=== PATIENT | male | born 1945 | race Caucasian/White ===

== ENCOUNTER 2021-04-04 15:08 | Inpatient (IN) | payer MEDICARE, OTHER, SELFPAY ==
--- NOTE | ~2021-04-04 | CT_ITS ---
EXAMINATION: CT HEAD WITHOUT CONTRAST CLINICAL INFORMATION: Mental status change. Visualized examination. COMPARISON: None TECHNIQUE: Contiguous axial imaging was performed from the skull base to vertex without intravenous administration of contrast. This CT examination was performed using dose optimization techniques as appropriate, variously including the following: *Automated exposure control *Adjustment of mA and/or kV according to patient size (this includes techniques or standardized protocols for targeted exams where dose is matched to indication/reason for exam; i.e. extremities or head) *Use of iterative reconstruction technique DLP: 716 mGy-cm FINDINGS: There is no evidence of acute intracranial hemorrhage or territorial infarction. No abnormal mass effect or midline shift is seen. Arvizu to white matter differentiation is well preserved. No extra-axial fluid collections are identified. There is age appropriate prominence of the ventricles and extra-axial CSF spaces. There is no abnormal attenuation within the brain parenchyma. The osseous structures and soft tissues are normal. The mastoid air cells and visualized portions of the paranasal sinuses are well aerated. CT/CT head/brain wo con IMPRESSION: Unremarkable exam.
--- NOTE | 2021-04-04 15:26 | ED_ITS ---
HPI - Psych General Chief Complaint: Psychiatric Symptoms Stated Complaint: psych Time Seen by Provider: 04/04/21 15:25 Source: patient Mode of arrival: ambulatory Limitations: no limitations History of Present Illness HPI Narrative: plan for admission to - sent to ED for medical clearance complaint: feels depressed and anxiety Onset (ago): year(s) Duration: getting worse History of same: Yes Relieving factors: none Exacerbating factors: none Associated psychiatric symptoms: depression Associated symptoms: denies other symptoms Treatments prior to arrival: none Related Data Allergies Allergy/AdvReac Type Severity Reaction Status Date / Time No Known Allergies Allergy Verified 04/04/21 15:34 Review of Systems Review of Systems: Constitutional : No Fever, No Chills ENT/Mouth : No Ear Pain, No Nasal Congestion, No sore throat Eyes: No Eye Pain, No Swelling, No Redness Cardiovascular : No Chest Pain, No SOB Respiratory : No Cough, No Sputum, No Dyspnea Gastrointestinal : No Nausea, No Vomiting, No Diarrhea, No Hematochezia, No Leonila jose ramon Genitourinary : No Dysuria, No Urinary Frequency, No Hematuria Musculoskeletal : No Myalgias Skin : No Skin Lesions, No rash Neuro : No Weakness, No Numbness, No Paresthesias, No Dizziness, No Headache Psych : positive Anxiety, positive Depression, no SI/HI Heme/Lymph: No Lymphadenopathy Endocrine : No Polyuria, No Polydipsia All other systems reviewed and are negative [facility] Past Medical History Attestation statement: The following information was validated with the patient. Medical History Depression HLD (hyperlipidemia) HTN (hypertension) Hypothyroidism Prostate cancer Social History Social History (Updated 04/04/21 @ 15:35 by Nadya Nielsen DO) Patient Tobacco Use Status: Former Tobacco user Use of substances other than those prescribed or required for medical reasons: No Advance Directives: No Advance Directives Information Provided: No Physical Exam Vital Signs: Vital Signs: Last Vital Signs Temp 98.2 F 04/04/21 15:56 Pulse 70 04/04/21 15:56 Resp 16 04/04/21 15:56 BP 131/57 L 04/04/21 15:56 Pulse Ox 97 04/04/21 15:56 Body Mass Index 20.0 Appearance: Alert. Oriented X3. No acute distress. Thin and frail Eyes: Pupils equal, round and reactive to light. ENT: Pharynx normal. Neck: Normal inspection. Neck supple. CVS: Normal heart rate and rhythm. Pulses normal. Respiratory: No respiratory distress. Breath sounds normal. Abdomen: Soft and nontender. Skin: Skin warm and dry. Normal skin color. Normal skin turgor. Extremities: No lower extremity edema. No calf ttp Neuro: Oriented X 3. No motor deficit. No sensory deficit. CN2-12 intact Course Course Course Narrative: signed out pending blood work and labs MDM - Psych MDM Narrative Medical decision making narrative: 75 yo male with HTN, HLD, hypothyroidism, anxiety depression referred to the ED for medical clearance prior to admit to [facility] for severe depression. He offers no medical complaints at this time, labs, COVID swab and admission pending workup. Discharge Plan Discharge Clinical Impression: Depression Qualifiers: Depression Type: major depressive disorder Major depression recurrence: recurrent Active/Remission status: currently active Major depression episode severity: severe Psychotic features: without psychotic features Qualified Code(s): F33.2 - Major depressive disorder, recurrent severe without psychotic features Patient Disposition: Admitted As Inpatient
--- NOTE | 2021-04-04 15:26 | ECG_ITS ---
Test Reason : RULE OUT PROLONGED Q Blood Pressure : / mmHG Vent. Rate : 067 BPM Atrial Rate : 067 BPM P-R Int : 146 ms QRS Dur : 116 ms QT Int : 452 ms P-R-T Axes : 084 088 055 degrees QTc Int : 477 ms Sinus rhythm with marked sinus arrhythmia Incomplete right bundle branch block Borderline ECG No previous ECGs available Referred By: Nadya Nielsen Electronically Signed By:TÑOO PRADHAN
[2021-04-04 15:56] VITALS: BP 131/57; PULSE 70; RESP 16; TEMP 36.8; O2SAT 97
[2021-04-04 17:00] LABS: Basophils Percent Auto 0.2 % (0-2); Eosinophils Percent Auto 0.7 % (0-4); Hemoglobin 12.5 g/dl (14.0-18.0); Imm Gran Abs Auto 0.01 X10*3/uL (0.00-0.03); Imm Gran Pct Auto 0.2 % (0.0-0.4); Lymphocytes Absolute Auto 0.8 X10*3/uL (1.2-4.9); Mean Platelet Volume 9.8 fL (9.4-12.4); PLT CLUMP 1; SCAN SMEAR FLAG 1
[2021-04-04 17:02] LABS: Hematocrit 36.9 % (42-52); Lymphocytes Percent Auto 16.9 % (20-40); Mean Corpuscular HGB Conc 33.9 g/dl (31.0-36.0); Mean Corpuscular Hemoglobin 31.8 pg (27.0-33.0); Mean Corpuscular Volume 93.9 fL (80-98); Monocytes Absolute Auto 0.4 X10*3/uL (0.1-1.2); Monocytes Percent Auto 8.1 % (2-11); Neutrophils Absolute Auto 3.3 X10*3/uL (2.0-8.3); Neutrophils Percent Auto 73.9 % (45-73); Platelet Count 152 X10*3/uL (160-400); Red Blood Count 3.93 X10*6/uL (4.60-5.80); Red Cell Distribution Width 13.2 % (11.0-16.0); White Blood Count 4.4 X10*3/uL (4.8-10.8)
--- NOTE | 2021-04-04 17:05 | PHA.MEDREC ---
Pharmacy Consult ? Medication Reconciliation Pharmacy has completed the medication reconciliation.
[2021-04-04 17:40] LABS: Alanine Aminotransferase 14 U/L (0-40); Albumin Level 4.2 g/dL (3.5-5.0); Alkaline Phosphatase 57 U/L (39-117); Anion Gap 9 (12-20); Aspartate Amino Transferase 16 U/L (5-37); Bilirubin Total 0.6 mg/dL (0.0-1.0); Blood Urea Nitrogen 24 mg/dL (9-16); Calcium 9.4 mg/dL (8.4-10.2); Carbon Dioxide 33 mmol/L (22-29); Chloride 104 mmol/L (96-108); Creatinine Clr Calc Pharmacy 69.5; Estimated Glomerular Filt Rate > 60; Glucose Random 120 mg/dL (60-115); Potassium 3.9 mmol/L (3.3-5.1); Sodium 142 mmol/L (135-145); Total Protein 6.5 g/dL (6.5-8.0)
[2021-04-04 17:44] LABS: COVID-19 Test Negative (Negative)
[2021-04-04 17:47] LABS: Thyroid Stimulating Hormone 1.86 uIU/mL (0.32-4.0)
[2021-04-04 18:25] LABS: Appearance Urine HAZY; Color Urine YELLOW; Glucose Urine UA NEG (NEG); Leukocyte Esterase Urine NEG (NEG); Nitrite Urine NEG (NEG); Specific Gravity - Urine >= 1.030 (1.005-1.025); Urine Blood NEG (NEG); Urine Ketones NEG (NEG); Urine Protein TRACE MG/DL (NEG-TRACE)
[2021-04-04 18:37] LABS: Amphetamine Screen Urine Not Detected (Not Detect); Barbiturates, Urine Not Detected (Not Detect); Benzodiazepines Screen Urine Not Detected (Not Detect); Cannabinoid Screen Urine Not Detected (Not Detect); Cocaine Screen Urine Not Detected (Not Detect); Fentanyl, urine Not Detected (Not Detect); Opiate Screen Urine Not Detected (Not Detect); Phencyclidine Screen Urine Not Detected (Not Detect)
[2021-04-04 18:37] LABS: Mucus Urine 1+ /LPF
[2021-04-04 18:38] LABS: Bacteria Urine TRACE /LPF; Calcium Oxalate Crystals Urine 1+ /LPF
[2021-04-04 18:39] LABS: RBC Urine 0 /HPF (0); WBC Urine 0 /HPF (0-4)
[2021-04-04 21:35] VITALS: BP 147/67; PULSE 68; RESP 17; TEMP 36.6; O2SAT 99
[2021-04-04 22:50] VITALS: BMI 17.8
[2021-04-04] MEDS: busPIRone HCl 10 MG TABLET PO (23:30)
[2021-04-04] MEDS: Sertraline HCL 100 MG TABLET 200 MG PO (23:31)
[2021-04-04] MEDS: Atorvastatin Calcium 10 MG TABLET PO (23:31)
[2021-04-05] MEDS: Levothyroxine Sodium 75 MCG TABLET PO (05:19)
--- NOTE | 2021-04-05 07:57 | PC.ADMIT ---
Admitted from ER POD; assessed at home by Crisis on 03/30 and waited at home with his until a bed search was completed and bed was available. Arrived onto unit ~9:30pm via wheelchair, CV signed and in chart. Patient A&Ox4, calm and cooperative, engaged in admission process, able to answer questions appropriately. Patient reports having visual hallucinations of seeing people, some faces he knows and others are vague images; denies auditory hallucinations; the images most appear in the evening hours and can be startling to him. Denies command hallucinations; denies current SI/HI, reported passive SI prior to the visual hallucinations taking over, and these disturbances occupy a lot of thought process. Patient reports these perceptual disturbances have gotten worse since a recent change in medication from Zyprexa to Abilify. Patient reports he has been avoiding people for some time and the social isolation with the pandemic worked in my favor . Patient reports living with in single family dwelling, has supports of neighbors for yardwork. Has an outside psych providers, currently no homecare services but he is potentially interested in homecare supports. Reports decrease in ability to care for himself; has choosen not to shower because I am not going anywhere . Decrease appetite; underweight, reporting ~50lb weight loss; ht 6', wt 59kg, BMI 16.8. Patient signed releases; oriented to the unit; placed on 15 min checks for safety.
[2021-04-05 08:20] VITALS: BP 148/71; PULSE 86; RESP 16; TEMP 36.4; O2SAT 98
[2021-04-05 08:23] VITALS: BP 148/71; PULSE 86
[2021-04-05] MEDS: NIFEdipine ER 90 MG TAB.ER.24 PO (08:23)
[2021-04-05 08:24] VITALS: BP 148/71; PULSE 86
[2021-04-05] MEDS: calcium polycarbophiL TABLET 2 TAB PO (08:24)
[2021-04-05] MEDS: Ferrous Sulfate 324 MG TABLET.DR PO (08:24)
[2021-04-05] MEDS: busPIRone HCl 10 MG TABLET PO ×2 (08:24→20:17)
[2021-04-05] MEDS: Cyanocobalamin (Vitamin B-12) 1,000 MCG TABLET 1000 MCG PO (08:24)
[2021-04-05] MEDS: Cholecalciferol (Vitamin D3) 25 MCG TABLET 50 MCG PO (08:24)
[2021-04-05] MEDS: lisinopriL 20 MG TABLET PO (08:24)
[2021-04-05] MEDS: ARIPiprazole 2 MG TABLET PO (08:25)
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
--- NOTE | 2021-04-05 14:53 | P.CONIM_ITS ---
History of Present Illness Data of Consult Service Date: 04/05/21 Requesting physician: Jose Knapp Primary Care Provider: Nishant Corral MD HPI Reason for consult: Medical H&P This is a 75 yo M with PMH as documented below who is admitted to [facility]. Medical consult for medical H&P. Patient is seen and examined in his room. He reports no physical complaints. He denies chest pain, sob, abdominal pain, nausea, vomiting. He reports he is admitted to the psych unit because Just dont feel like myself Review of Systems Review of Systems: General - no fevers or chills Cardiovascular - no chest pain Respiratory - no shortness of breath or cough Abdominal- no abdominal pain, nausea, vomiting, diarrhea Yes all other systems are reviewed and are negative (see psych notes for psych ROS) [facility] Medical History Depression HLD (hyperlipidemia) HTN (hypertension) Hypothyroidism Prostate cancer Family History Other Prostate cancer Pertinent family history: . Surgical History H/O prostatectomy History of hernia surgery Social History Household Members: Spouse Housing: House Do you presently have visiting nurse or other home services: No Patient Tobacco Use Status: Former Tobacco user Smoked in Last 30 Days: No e-Cigarette/Vaping Use: Never Used Use of substances other than those prescribed or required for medical reasons: No Currently Displaying Signs/Symptoms of Drug Intoxication Withdrawal: No Have you been hit, kicked, punched, or otherwise hurt by someone within the past year? If so, by whom?: No Do you feel safe in your current relationship?: Yes Is there a partner from a previous relationship who is making you feel unsafe now?: No Are you made to feel afraid or neglected: No Advance Directives: Yes (POA) Advance Directives Information Provided: No Advance Directives on File: No Do you have thoughts of harming others: None Do you have a plan to hurt others: No Plan Recently lost weight without trying: Yes How much weight loss: 34pounds or more Eating poorly because of decreased appetite: Yes Nutrition screen score: 7 Nutrition Risks: Anorexia and Emaciation/Cachexia Poor oral hygiene: Yes Meds Allergies Allergy/AdvReac Type Severity Reaction Status Date / Time No Known Allergies Allergy Verified 04/04/21 15:34 Active Medications: Current Medications Acetaminophen (Acetaminophen 325 Mg Tablet) 650 mg PO Q8H PRN PRN Reason: Pain Al Hydroxide/Mg Hydroxide (Magnesium Hydrox/Alum Hydrox 30 Ml Oral.Susp) 30 ml PO Q6H PRN PRN Reason: Heartburn/Nausea Aripiprazole (Aripiprazole 2 Mg Tablet) 2 mg PO DAILY [facility] Last Admin: 04/05/21 08:25 Dose: 2 mg Documented by: Atorvastatin Calcium (Atorvastatin Calcium 10 Mg Tablet) 10 mg PO BEDTIME [facility] Last Admin: 04/04/21 23:31 Dose: 10 mg Documented by: Buspirone HCl (Buspirone Hcl 10 Mg Tablet) 10 mg PO BID [facility] Last Admin: 04/05/21 08:24 Dose: 10 mg Documented by: Calcium Polycarbophil (Calcium Polycarbophil Tablet) 2 tab PO DAILY [facility] Last Admin: 04/05/21 08:24 Dose: 2 tab Documented by: Cyanocobalamin (Cyanocobalamin (Vitamin B-12) 1,000 Mcg Tablet) 1,000 mcg PO DAILY [facility] Last Admin: 04/05/21 08:24 Dose: 1,000 mcg Documented by: Ferrous Sulfate (Ferrous Sulfate 324 Mg Tablet.Dr) 324 mg PO DAILY [facility] Last Admin: 04/05/21 08:24 Dose: 324 mg Documented by: Levothyroxine Sodium (Levothyroxine Sodium 75 Mcg Tablet) 75 mcg PO DAILY@0600 [facility] Last Admin: 04/05/21 05:19 Dose: 75 mcg Documented by: Lisinopril (Lisinopril 20 Mg Tablet) 20 mg PO DAILY [facility] Last Admin: 04/05/21 08:24 Dose: 20 mg Documented by: Magnesium Hydroxide (Milk Of Magnesia 30 Ml Oral.Susp) 30 ml PO DAILY PRN PRN Reason: Constipation Nifedipine (Nifedipine Er 90 Mg Tab.Er.24) 90 mg PO DAILY [facility] Last Admin: 04/05/21 08:23 Dose: 90 mg Documented by: Pharmacy Consult (Consult Rx Perform Med Rec) 1 each MISCELLANE ONCE PRN PRN Reason: Consult order Sertraline HCl (Sertraline Hcl 100 Mg Tablet) 200 mg PO BEDTIME [facility] Last Admin: 04/04/21 23:31 Dose: 200 mg Documented by: Vitamin D (Cholecalciferol (Vitamin D3) 25 Mcg Tablet) 50 mcg PO DAILY [facility] Last Admin: 04/05/21 08:24 Dose: 50 mcg Documented by: Home Medications Medication Instructions Recorded Confirmed Last Taken Type acetaminophen 650 mg 650 mg PO Q8H PRN 04/04/21 04/04/21 Unknown History tablet,extended release aripiprazole 2 mg tablet 1 tab PO DAILY 04/04/21 04/04/21 Unknown History buspirone 10 mg tablet 10 mg PO BID 04/04/21 04/04/21 Unknown History calcium polycarbophil 625 mg 1,250 mg PO DAILY 04/04/21 04/04/21 Unknown History tablet (FiberCon) cholecalciferol (vitamin D3) 50 50 mcg PO DAILY 04/04/21 04/04/21 Unknown History mcg (2,000 unit) tablet cyanocobalamin (vitamin B-12) 1,000 mcg PO DAILY 04/04/21 04/04/21 Unknown History 1,000 mcg tablet ferrous sulfate 325 mg (65 mg 325 mg PO DAILY 04/04/21 04/04/21 Unknown History iron) tablet (Feosol) fosinopril 20 mg tablet 20 mg PO DAILY 04/04/21 04/04/21 Unknown History levothyroxine 75 mcg tablet 75 mcg PO DAILY 04/04/21 04/04/21 Unknown History nifedipine 90 mg tablet,extended 90 mg PO DAILY 04/04/21 04/04/21 Unknown History release sertraline 100 mg tablet 200 mg PO BEDTIME 04/04/21 04/04/21 Unknown History simvastatin 20 mg tablet 20 mg PO BEDTIME 04/04/21 04/04/21 Unknown History vitamins A,C,P-saot-ewmgnc 14,320 2 cap PO DAILY 04/04/21 04/04/21 Unknown History unit-226 mg-200 unit capsule (PreserVision AREDS) Physical Exam Vital Signs and Narrative: Vital Signs: Last Vital Signs Temp 97.5 F 04/05/21 08:20 Pulse 86 04/05/21 08:24 Resp 16 04/05/21 08:20 BP 148/71 H 04/05/21 08:24 Pulse Ox 98 04/05/21 08:20 Body Mass Index 17.8 Const: Other: Constitutional - Awake and Alert, No apparent distress Eyes - PERRLA, EOMI Cardiovascular - S1S2, RRR, No edema Respiratory - Normal lung expansion, Normal respiratory effort, No respiratory distress, CTA bilaterally Gastrointestinal - NT / ND; +BS; No rebound or guarding - No CVA tenderness Extremities - no calf tenderness bilaterally, no swelling Musculoskeletal - Normal inspection, normal ROM Skin - Warm/Dry Neurological - Alert & oriented x3, No focal deficit; CN 2-12 intact bilaterally Results Labs CBC and Chem 7: 04/04/21 16:48 04/04/21 16:47 Labs: Laboratory Results - last 24 hr 04/04/21 04/04/21 04/04/21 16:36 16:47 16:47 MCV MCH MCHC RDW Plt Count MPV Immature Gran % (Auto) Neut % (Auto) Lymph % (Auto) [place] % (Auto) Eos % (Auto) Baso % (Auto) Lymph # (Auto) [place] # (Auto) Eos # (Auto) Baso # (Auto) Abs Immat Gran (auto) Absolute Neuts (auto) Absolute Nucleated RBC Nucleated RBC % (auto) Anion Gap 9 L Estim Creat Clear Calc 69.5 Estimated GFR > 60 Random Glucose 120 H Calcium 9.4 Total Bilirubin 0.6 AST 16 ALT 14 Alkaline Phosphatase 57 Total Protein 6.5 Albumin 4.2 TSH 1.86 Urine Color Urine Appearance Urine pH Ur Specific [place] Urine Protein Urine Glucose (UA) Urine Ketones Urine Blood Urine Nitrite Ur Leukocyte Esterase Urine RBC Urine WBC Ur Squamous Epith Cells Calcium Oxalate Crystal Urine Bacteria Urine Mucus Urine Opiates Screen Urine Fentanyl Screen Ur Barbiturates Screen Ur Phencyclidine Scrn Ur Amphetamines Screen U Benzodiazepines Scrn Urine Cocaine Screen U Marijuana (THC) Screen COVID-19 (BEV) Negative COVID-19 Clin Com See Note 04/04/21 04/04/21 04/04/21 16:48 18:12 18:13 MCV 93.9 MCH 31.8 MCHC 33.9 RDW 13.2 Plt Count 152 L MPV 9.8 Immature Gran % (Auto) 0.2 Neut % (Auto) 73.9 H Lymph % (Auto) 16.9 L [place] % (Auto) 8.1 Eos % (Auto) 0.7 Baso % (Auto) 0.2 Lymph # (Auto) 0.8 L [place] # (Auto) 0.4 Eos # (Auto) 0.0 Baso # (Auto) 0.0 Abs Immat Gran (auto) 0.01 Absolute Neuts (auto) 3.3 Absolute Nucleated RBC 0.000 Nucleated RBC % (auto) 0.0 Anion Gap Estim Creat Clear Calc Estimated GFR Random Glucose Calcium Total Bilirubin AST ALT Alkaline Phosphatase Total Protein Albumin TSH Urine Color YELLOW Urine Appearance HAZY Urine pH 6.0 Ur Specific [place] >= 1.030 H Urine Protein TRACE Urine Glucose (UA) NEG Urine Ketones NEG Urine Blood NEG Urine Nitrite NEG Ur Leukocyte Esterase NEG Urine RBC 0 Urine WBC 0 Ur Squamous Epith Cells NONE Calcium Oxalate Crystal 1+ Urine Bacteria TRACE Urine Mucus 1+ Urine Opiates Screen Not Detected Urine Fentanyl Screen Not Detected Ur Barbiturates Screen Not Detected Ur Phencyclidine Scrn Not Detected Ur Amphetamines Screen Not Detected U Benzodiazepines Scrn Not Detected Urine Cocaine Screen Not Detected U Marijuana (THC) Screen Not Detected COVID-19 (BEV) COVID-19 Clin Com Assessment and Plan (1) Routine medical exam: Status: Acute 75 yo M admitted to the [facility]. Medical consult for routine medical H&P. Medically stable at this time. Chronic issues: 1. HTN continue MAYI / Nifedipine 2. HLT continue statin 3. Hypothyroidism synthroid Will sign off. Please reconsult if any concerns.
[2021-04-05 16:18] VITALS: BMI 17.8
--- NOTE | 2021-04-05 16:25 | MHC.CLN ---
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 REPORTS 50# WEIGHT LOSS X 2 YEARS. POOR APPETITE AND DOES NOT CONSISTENTLY EAT 3 MEALS PER DAY. DECLINED SUPPLEMENTS STATING THAT HE WANTS TO TRY TO EAT [address] WILL FOLLOW.
[2021-04-05] MEDS: Atorvastatin Calcium 10 MG TABLET PO (20:17)
[2021-04-05] MEDS: Sertraline HCL 100 MG TABLET 200 MG PO (20:17)
[2021-04-05 21:40] VITALS: BP 120/56; PULSE 62; RESP 19; TEMP 36.6; O2SAT 98
[2021-04-06 06:00] VITALS: BP 123/62; PULSE 86; TEMP 36.5; O2SAT 97
[2021-04-06] MEDS: Levothyroxine Sodium 75 MCG TABLET PO (06:07)
[2021-04-06 09:04] VITALS: BP 123/62; PULSE 86
[2021-04-06] MEDS: lisinopriL 20 MG TABLET PO (09:04)
[2021-04-06] MEDS: NIFEdipine ER 90 MG TAB.ER.24 PO (09:04)
[2021-04-06] MEDS: calcium polycarbophiL TABLET 2 TAB PO (09:04)
[2021-04-06] MEDS: busPIRone HCl 10 MG TABLET PO ×2 (09:05→21:05)
[2021-04-06] MEDS: ARIPiprazole 2 MG TABLET PO (09:05)
[2021-04-06] MEDS: Ferrous Sulfate 324 MG TABLET.DR PO (09:05)
[2021-04-06] MEDS: Cholecalciferol (Vitamin D3) 25 MCG TABLET 50 MCG PO (09:05)
[2021-04-06] MEDS: Cyanocobalamin (Vitamin B-12) 1,000 MCG TABLET 1000 MCG PO (09:05)
[2021-04-06 18:00] VITALS: BP 120/58; PULSE 74; RESP 18; TEMP 37.2; O2SAT 97
[2021-04-06] MEDS: Atorvastatin Calcium 10 MG TABLET PO (21:05)
[2021-04-06] MEDS: Sertraline HCL 100 MG TABLET 200 MG PO (21:05)
--- NOTE | 2021-04-06 21:05 | HO.PSYCHPN ---
Subjective Subjective Date of Service: 04/07/21 Reason For Visit: acute psychosis Subjective Notes: Conditional Voluntary Interim History: Pt reports no complaints. Feels mood is improving. Mild disorientation. No VH. Medication Compliance: Yes Review of Systems Acute medical concerns: No Medical Review of Systems: unchanged Review of Systems Review of Systems General - no fevers or chills Cardiovascular - no chest pain Respiratory - no shortness of breath or cough Abdominal- no abdominal pain, nausea, vomiting, diarrhea Yes all other systems are reviewed and are negative (see psych notes for psych ROS) Mental Status Exam Mental Status Exam Patient Appearance: Well Grooomed (On hospital gowns) Patient Orientation: Person, Place and Situation Level of Consciousness: Awake and Appropriate Patient Behavior: Cooperative and Passive Mood Description: Depressed Affect Description: Constricted Patient Cognition Impaired: No Ability to Follow Directions: Good Speech Pattern: Clear Thought Content: positive for Poverty of Content Diagnostics Vital Signs (24Hr): Vital Signs - 24 hr 04/05/21 21:40 04/06/21 06:00 04/06/21 09:04 Temperature 97.8 F 97.7 F Pulse Rate 62 86 86 Respiratory Rate 19 Blood Pressure 120/56 L 123/62 123/62 Pulse Oximetry 98 97 Body Mass Index 17.8 Labs Results: 04/04/21 16:48 04/04/21 16:47 Medications Medications Current Medications Acetaminophen (Acetaminophen 325 Mg Tablet) 650 mg PO Q8H PRN PRN Reason: Pain Al Hydroxide/Mg Hydroxide (Magnesium Hydrox/Alum Hydrox 30 Ml Oral.Susp) 30 ml PO Q6H PRN PRN Reason: Heartburn/Nausea Aripiprazole (Aripiprazole 2 Mg Tablet) 2 mg PO DAILY [facility] Last Admin: 04/06/21 09:05 Dose: 2 mg Documented by: Atorvastatin Calcium (Atorvastatin Calcium 10 Mg Tablet) 10 mg PO BEDTIME [facility] Last Admin: 04/05/21 20:17 Dose: 10 mg Documented by: Buspirone HCl (Buspirone Hcl 10 Mg Tablet) 10 mg PO BID [facility] Last Admin: 04/06/21 09:05 Dose: 10 mg Documented by: Calcium Polycarbophil (Calcium Polycarbophil Tablet) 2 tab PO DAILY [facility] Last Admin: 04/06/21 09:04 Dose: 2 tab Documented by: Cyanocobalamin (Cyanocobalamin (Vitamin B-12) 1,000 Mcg Tablet) 1,000 mcg PO DAILY [facility] Last Admin: 04/06/21 09:05 Dose: 1,000 mcg Documented by: Ferrous Sulfate (Ferrous Sulfate 324 Mg Tablet.) 324 mg PO DAILY [facility] Last Admin: 04/06/21 09:05 Dose: 324 mg Documented by: Levothyroxine Sodium (Levothyroxine Sodium 75 Mcg Tablet) 75 mcg PO DAILY@0600 [facility] Last Admin: 04/06/21 06:07 Dose: 75 mcg Documented by: Lisinopril (Lisinopril 20 Mg Tablet) 20 mg PO DAILY [facility] Last Admin: 04/06/21 09:04 Dose: 20 mg Documented by: Magnesium Hydroxide (Milk Of Magnesia 30 Ml Oral.Susp) 30 ml PO DAILY PRN PRN Reason: Constipation Nifedipine (Nifedipine Er 90 Mg Tab.Er.24) 90 mg PO DAILY [facility] Last Admin: 04/06/21 09:04 Dose: 90 mg Documented by: Pharmacy Consult (Consult Rx Perform Med Rec) 1 each MISCELLANE ONCE PRN PRN Reason: Consult order Sertraline HCl (Sertraline Hcl 100 Mg Tablet) 200 mg PO BEDTIME [facility] Last Admin: 04/05/21 20:17 Dose: 200 mg Documented by: Vitamin D (Cholecalciferol (Vitamin D3) 25 Mcg Tablet) 50 mcg PO DAILY [facility] Last Admin: 04/06/21 09:05 Dose: 50 mcg Documented by: Allergies Allergies Allergy/AdvReac Type Severity Reaction Status Date / Time No Known Allergies Allergy Verified 04/04/21 15:34 Assessment & Plan Assessment & Plan (1) Routine medical exam: Status: Acute Code(s): Z00.00 - Encounter for general adult medical examination without abnormal findings (2) Depression: Qualifiers: Active/Remission status: currently active Depression Type: major depressive disorder Major depression episode severity: severe Major depression recurrence: recurrent Psychotic features: without psychotic features Qualified Code(s): F33.2 - Major depressive disorder, recurrent severe without psychotic features Status: Acute Code(s): F32.9 - Major depressive disorder, single episode, unspecified Assessment and Plan: Ct meds. No changes. Labs ordered. Denies psychotic Sx. Repeat CBC Assessment and Plan: 75 yo M admitted to the [facility]. Medical consult for routine medical H&P. Medically stable at this time. Chronic issues: 1. HTN continue MAYI / Nifedipine 2. HLT continue statin 3. Hypothyroidism synthroid Will sign off. Please reconsult if any concerns. Greater than 50% of the session was spent on counseling and/or coordination of care Patient educated on: diagnosis Informed Consent: understands Reason for contiued inpatient stay Substantial Risk for: med/psych decompensation
[2021-04-07] MEDS: Levothyroxine Sodium 75 MCG TABLET PO (05:31)
[2021-04-07 06:00] VITALS: BP 121/71; PULSE 72; RESP 18; TEMP 36.4; O2SAT 98
--- NOTE | 2021-04-07 07:10 | HO.PSYCHPN ---
Subjective Subjective Date of Service: 04/07/21 Reason For Visit: acute psychosis Subjective Notes: Conditional Voluntary Interim History: Attending groups but feels depressed. Worries about his coping at home. X depressive thoughts. No VH but remembered seeing a white bus as part of VH. Medication Compliance: Yes Side effects from medications: No Review of Systems Review of Systems General - no fevers or chills Cardiovascular - no chest pain Respiratory - no shortness of breath or cough Abdominal- no abdominal pain, nausea, vomiting, diarrhea Yes all other systems are reviewed and are negative (see psych notes for psych ROS) Mental Status Exam Mental Status Exam Patient Appearance: Well Grooomed (On hospital gowns) Patient Orientation: Person, Place and Situation Level of Consciousness: Awake and Appropriate Patient Behavior: Cooperative and Passive Mood Description: Depressed Affect Description: Constricted Patient Cognition Impaired: No Ability to Follow Directions: Good Speech Pattern: Clear Diagnostics Vital Signs (24Hr): Vital Signs - 24 hr 04/06/21 09:04 04/06/21 18:00 Temperature 98.9 F Pulse Rate 86 74 Respiratory Rate 18 Blood Pressure 123/62 120/58 L Pulse Oximetry 97 Body Mass Index 17.8 Labs Results: 04/07/21 07:22 04/04/21 16:47 Labs: noted Medications Medications Current Medications Acetaminophen (Acetaminophen 325 Mg Tablet) 650 mg PO Q8H PRN PRN Reason: Pain Al Hydroxide/Mg Hydroxide (Magnesium Hydrox/Alum Hydrox 30 Ml Oral.Susp) 30 ml PO Q6H PRN PRN Reason: Heartburn/Nausea Aripiprazole (Aripiprazole 2 Mg Tablet) 2 mg PO DAILY [facility] Last Admin: 04/06/21 09:05 Dose: 2 mg Documented by: Atorvastatin Calcium (Atorvastatin Calcium 10 Mg Tablet) 10 mg PO BEDTIME [facility] Last Admin: 04/06/21 21:05 Dose: 10 mg Documented by: Buspirone HCl (Buspirone Hcl 10 Mg Tablet) 10 mg PO BID [facility] Last Admin: 04/06/21 21:05 Dose: 10 mg Documented by: Calcium Polycarbophil (Calcium Polycarbophil Tablet) 2 tab PO DAILY [facility] Last Admin: 04/06/21 09:04 Dose: 2 tab Documented by: Cyanocobalamin (Cyanocobalamin (Vitamin B-12) 1,000 Mcg Tablet) 1,000 mcg PO DAILY [facility] Last Admin: 04/06/21 09:05 Dose: 1,000 mcg Documented by: Ferrous Sulfate (Ferrous Sulfate 324 Mg Tablet.) 324 mg PO DAILY [facility] Last Admin: 04/06/21 09:05 Dose: 324 mg Documented by: Levothyroxine Sodium (Levothyroxine Sodium 75 Mcg Tablet) 75 mcg PO DAILY@0600 [facility] Last Admin: 04/07/21 05:31 Dose: 75 mcg Documented by: Lisinopril (Lisinopril 20 Mg Tablet) 20 mg PO DAILY [facility] Last Admin: 04/06/21 09:04 Dose: 20 mg Documented by: Magnesium Hydroxide (Milk Of Magnesia 30 Ml Oral.Susp) 30 ml PO DAILY PRN PRN Reason: Constipation Nifedipine (Nifedipine Er 90 Mg Tab.Er.24) 90 mg PO DAILY [facility] Last Admin: 04/06/21 09:04 Dose: 90 mg Documented by: Pharmacy Consult (Consult Rx Perform Med Rec) 1 each MISCELLANE ONCE PRN PRN Reason: Consult order Sertraline HCl (Sertraline Hcl 100 Mg Tablet) 200 mg PO BEDTIME [facility] Last Admin: 04/06/21 21:05 Dose: 200 mg Documented by: Vitamin D (Cholecalciferol (Vitamin D3) 25 Mcg Tablet) 50 mcg PO DAILY [facility] Last Admin: 04/06/21 09:05 Dose: 50 mcg Documented by: Allergies Allergies Allergy/AdvReac Type Severity Reaction Status Date / Time No Known Allergies Allergy Verified 04/04/21 15:34 Assessment & Plan Assessment & Plan (1) Routine medical exam: Status: Acute Code(s): Z00.00 - Encounter for general adult medical examination without abnormal findings (2) Depression: Qualifiers: Active/Remission status: currently active Depression Type: major depressive disorder Major depression episode severity: severe Major depression recurrence: recurrent Psychotic features: without psychotic features Qualified Code(s): F33.2 - Major depressive disorder, recurrent severe without psychotic features Status: Acute Code(s): F32.9 - Major depressive disorder, single episode, unspecified Assessment and Plan: Ct meds. No changes. Labs ordered. Denies psychotic Sx. Repeat CBC Assessment and Plan: 75 yo M admitted to the [facility]. Medical consult for routine medical H&P. Medically stable at this time. Chronic issues: 1. HTN continue MAYI / Nifedipine 2. HLT continue statin 3. Hypothyroidism synthroid Will sign off. Please reconsult if any concerns. Greater than 50% of the session was spent on counseling and/or coordination of care Reason for contiued inpatient stay Substantial Risk for: inability to function
[2021-04-07 07:29] LABS: MANUAL DIFF FLAG NO
[2021-04-07 07:34] LABS: Basophils Percent Auto 0.2 % (0-2); Eosinophils Absolute Auto 0.1 X10*3/uL (0.0-0.4); Eosinophils Percent Auto 1.8 % (0-4); Hematocrit 37.3 % (42-52); Hemoglobin 12.4 g/dl (14.0-18.0); Imm Gran Abs Auto 0.01 X10*3/uL (0.00-0.03); Imm Gran Pct Auto 0.2 % (0.0-0.4); Lymphocytes Absolute Auto 1.1 X10*3/uL (1.2-4.9); Lymphocytes Percent Auto 24.9 % (20-40); Mean Corpuscular HGB Conc 33.2 g/dl (31.0-36.0); Mean Corpuscular Hemoglobin 31.3 pg (27.0-33.0); Mean Corpuscular Volume 94.2 fL (80-98); Mean Platelet Volume 9.6 fL (9.4-12.4); Monocytes Absolute Auto 0.4 X10*3/uL (0.1-1.2); Monocytes Percent Auto 8.1 % (2-11); Neutrophils Absolute Auto 2.9 X10*3/uL (2.0-8.3); Neutrophils Percent Auto 64.8 % (45-73); Platelet Count 152 X10*3/uL (160-400); Red Blood Count 3.96 X10*6/uL (4.60-5.80); Red Cell Distribution Width 13.2 % (11.0-16.0); White Blood Count 4.4 X10*3/uL (4.8-10.8)
[2021-04-07 08:09] LABS: Thyroid Stimulating Hormone 2.63 uIU/mL (0.32-4.0)
[2021-04-07 08:57] VITALS: BP 125/87; PULSE 78
[2021-04-07] MEDS: Cholecalciferol (Vitamin D3) 25 MCG TABLET 50 MCG PO (08:57)
[2021-04-07] MEDS: calcium polycarbophiL TABLET 2 TAB PO (08:57)
[2021-04-07] MEDS: lisinopriL 20 MG TABLET PO (08:57)
[2021-04-07] MEDS: Ferrous Sulfate 324 MG TABLET.DR PO (08:57)
[2021-04-07] MEDS: ARIPiprazole 2 MG TABLET PO (08:57)
[2021-04-07 08:58] VITALS: BP 130/87; PULSE 78
[2021-04-07] MEDS: NIFEdipine ER 90 MG TAB.ER.24 PO (08:58)
[2021-04-07] MEDS: busPIRone HCl 10 MG TABLET PO ×2 (08:59→20:26)
[2021-04-07] MEDS: Cyanocobalamin (Vitamin B-12) 1,000 MCG TABLET 1000 MCG PO (08:59)
[2021-04-07 18:00] VITALS: BP 125/58; PULSE 108; RESP 20; TEMP 36.6; O2SAT 96
[2021-04-07] MEDS: Atorvastatin Calcium 10 MG TABLET PO (20:26)
[2021-04-07] MEDS: Sertraline HCL 100 MG TABLET 200 MG PO (20:26)
[2021-04-08] MEDS: Levothyroxine Sodium 75 MCG TABLET PO (05:25)
[2021-04-08 06:00] VITALS: BP 134/65; PULSE 66; RESP 18; TEMP 37.1; O2SAT 97
[2021-04-08 07:20] LABS: Vitamin B12 976 pg/mL (200-900)
[2021-04-08 07:24] LABS: Folate 5.6 ng/mL (> or = 4.0)
[2021-04-08 08:13] VITALS: BP 134/65; PULSE 66
[2021-04-08] MEDS: Cyanocobalamin (Vitamin B-12) 1,000 MCG TABLET 1000 MCG PO (08:13)
[2021-04-08] MEDS: lisinopriL 20 MG TABLET PO (08:13)
[2021-04-08] MEDS: Cholecalciferol (Vitamin D3) 25 MCG TABLET 50 MCG PO (08:13)
[2021-04-08] MEDS: busPIRone HCl 10 MG TABLET PO ×2 (08:13→20:35)
[2021-04-08 08:14] VITALS: BP 134/65; PULSE 66
[2021-04-08] MEDS: NIFEdipine ER 90 MG TAB.ER.24 PO (08:14)
[2021-04-08] MEDS: Ferrous Sulfate 324 MG TABLET.DR PO (08:14)
[2021-04-08] MEDS: calcium polycarbophiL TABLET 2 TAB PO (08:14)
[2021-04-08] MEDS: ARIPiprazole 2 MG TABLET PO (08:14)
--- NOTE | 2021-04-08 13:03 | HO.PSYCHPN ---
Subjective Subjective Date of Service: 04/08/21 Reason For Visit: acute psychosis Subjective Notes: Conditional Voluntary Interim History: The nursing staff reported that over the weekend he did have hallucinations but today he reported that he woke up very confused and he could hear some voices in the morning. He also so someone in his room early. Today we had a family meeting and the family reported that he has been more depressed after nursing home but the psychotic symptoms appear recently. We will do a new the urinalysis BC metabolic panel and a CBC tomorrow morning. Also a CT scan without contrast Medication Compliance: Yes Review of Systems Acute medical concerns: No Medical Review of Systems: unchanged Mental Status Exam Mental Status Exam Patient Appearance: Well Grooomed Patient Orientation: Person Level of Consciousness: Awake Patient Behavior: Cooperative and Passive Mood Description: Depressed Affect Description: Constricted Patient Cognition Impaired: No Ability to Follow Directions: Good Speech Pattern: Clear Hallucinations: Visual Delusions: Not Present Thought Process: Slowed Thinking Thought Content: positive for [place] and positive for Preoccupation Judgement: Fair Diagnostics Vital Signs (24Hr): Vital Signs - 24 hr 04/07/21 18:00 04/08/21 06:00 04/08/21 08:13 Temperature 97.8 F 98.7 F Pulse Rate 108 H 66 66 Respiratory Rate 20 18 Blood Pressure 125/58 L 134/65 134/65 Pulse Oximetry 96 97 04/08/21 08:14 Temperature Pulse Rate 66 Respiratory Rate Blood Pressure 134/65 Pulse Oximetry Body Mass Index 17.8 Labs Results: 04/07/21 07:22 04/04/21 16:47 Labs: Laboratory Results - last 48 hr 04/07/21 04/07/21 04/08/21 07:22 07:22 06:15 WBC 4.4 L RBC 3.96 L Hgb 12.4 L Hct 37.3 L MCV 94.2 MCH 31.3 MCHC 33.2 RDW 13.2 Plt Count 152 L MPV 9.6 Immature Gran % (Auto) 0.2 Neut % (Auto) 64.8 Lymph % (Auto) 24.9 [place] % (Auto) 8.1 Eos % (Auto) 1.8 Baso % (Auto) 0.2 Lymph # (Auto) 1.1 L [place] # (Auto) 0.4 Eos # (Auto) 0.1 Baso # (Auto) 0.0 Abs Immat Gran (auto) 0.01 Absolute Neuts (auto) 2.9 Absolute Nucleated RBC 0.000 Nucleated RBC % (auto) 0.0 Vitamin B12 976 H Folate TSH 2.63 04/08/21 06:15 WBC RBC Hgb Hct MCV MCH MCHC RDW Plt Count MPV Immature Gran % (Auto) Neut % (Auto) Lymph % (Auto) [place] % (Auto) Eos % (Auto) Baso % (Auto) Lymph # (Auto) [place] # (Auto) Eos # (Auto) Baso # (Auto) Abs Immat Gran (auto) Absolute Neuts (auto) Absolute Nucleated RBC Nucleated RBC % (auto) Vitamin B12 Folate 5.6 TSH Medications Medications Current Medications Acetaminophen (Acetaminophen 325 Mg Tablet) 650 mg PO Q8H PRN PRN Reason: Pain Al Hydroxide/Mg Hydroxide (Magnesium Hydrox/Alum Hydrox 30 Ml Oral.Susp) 30 ml PO Q6H PRN PRN Reason: Heartburn/Nausea Aripiprazole (Aripiprazole 5 Mg Tablet) 5 mg PO DAILY [facility] Atorvastatin Calcium (Atorvastatin Calcium 10 Mg Tablet) 10 mg PO BEDTIME [facility] Last Admin: 04/07/21 20:26 Dose: 10 mg Documented by: Buspirone HCl (Buspirone Hcl 10 Mg Tablet) 10 mg PO BID [facility] Last Admin: 04/08/21 08:13 Dose: 10 mg Documented by: Calcium Polycarbophil (Calcium Polycarbophil Tablet) 2 tab PO DAILY [facility] Last Admin: 04/08/21 08:14 Dose: 2 tab Documented by: Cyanocobalamin (Cyanocobalamin (Vitamin B-12) 1,000 Mcg Tablet) 1,000 mcg PO DAILY [facility] Last Admin: 04/08/21 08:13 Dose: 1,000 mcg Documented by: Ferrous Sulfate (Ferrous Sulfate 324 Mg Tablet.) 324 mg PO DAILY [facility] Last Admin: 04/08/21 08:14 Dose: 324 mg Documented by: Levothyroxine Sodium (Levothyroxine Sodium 75 Mcg Tablet) 75 mcg PO DAILY@0600 [facility] Last Admin: 04/08/21 05:25 Dose: 75 mcg Documented by: Lisinopril (Lisinopril 20 Mg Tablet) 20 mg PO DAILY [facility] Last Admin: 04/08/21 08:13 Dose: 20 mg Documented by: Magnesium Hydroxide (Milk Of Magnesia 30 Ml Oral.Susp) 30 ml PO DAILY PRN PRN Reason: Constipation Nifedipine (Nifedipine Er 90 Mg Tab.Er.24) 90 mg PO DAILY [facility] Last Admin: 04/08/21 08:14 Dose: 90 mg Documented by: Pharmacy Consult (Consult Rx Perform Med Rec) 1 each MISCELLANE ONCE PRN PRN Reason: Consult order Sertraline HCl (Sertraline Hcl 100 Mg Tablet) 200 mg PO BEDTIME [facility] Last Admin: 04/07/21 20:26 Dose: 200 mg Documented by: Vitamin D (Cholecalciferol (Vitamin D3) 25 Mcg Tablet) 50 mcg PO DAILY [facility] Last Admin: 04/08/21 08:13 Dose: 50 mcg Documented by: Allergies Allergies Allergy/AdvReac Type Severity Reaction Status Date / Time No Known Allergies Allergy Verified 04/04/21 15:34 Assessment & Plan Assessment & Plan (1) Routine medical exam: Status: Acute Code(s): Z00.00 - Encounter for general adult medical examination without abnormal findings (2) Depression: Qualifiers: Active/Remission status: currently active Depression Type: major depressive disorder Major depression episode severity: severe Major depression recurrence: recurrent Psychotic features: without psychotic features Qualified Code(s): F33.2 - Major depressive disorder, recurrent severe without psychotic features Status: Acute Code(s): F32.9 - Major depressive disorder, single episode, unspecified Assessment and Plan: Ct meds. No changes. Labs ordered. Denies psychotic Sx. Repeat CBC Assessment and Plan: 75 yo M admitted to [facility]. Medical consult for routine medical H&P. Medically stable at this time. Chronic issues: 1. HTN continue MAYI / Nifedipine 2. HLT continue statin 3. Hypothyroidism synthroid Will sign off. Please reconsult if any concerns. Regarding his psychiatric care, we kept him with Zoloft 200 and Abilify 2 mg p.o. q.a.m.. Plan 1. Increase Abilify up to 5 mg p.o. q.a.m.. 2. Keep Zoloft. 3. CT scan without contrast, UA CBC and basic metabolic panel. Greater than 50% of the session was spent on counseling and/or coordination of care Reason for contiued inpatient stay Substantial Risk for: inability to function, rapid decompensation and med/psych decompensation
--- NOTE | 2021-04-08 13:52 | MHC.CLN ---
F/U PATIENT TRYING TO EAT 3 MEALS PER DAY. PER STAFF, ATE WELL TODAY AT BREAKFAST AND LUNCH.
[2021-04-08 16:25] LABS: Appearance Urine CLEAR; Color Urine YELLOW; Glucose Urine UA NEG (NEG); Leukocyte Esterase Urine NEG (NEG); Nitrite Urine NEG (NEG); Urine Blood NEG (NEG); Urine Ketones 5 MG/DL (NEG); Urine Protein TRACE MG/DL (NEG-TRACE)
[2021-04-08 18:00] VITALS: BP 107/55; PULSE 89; RESP 17; TEMP 36.9; O2SAT 97
[2021-04-08] MEDS: Sertraline HCL 100 MG TABLET 200 MG PO (20:35)
[2021-04-08] MEDS: Atorvastatin Calcium 10 MG TABLET PO (20:35)
[2021-04-09] VITALS (7 sets, daily range): BP systolic 70–122; BP diastolic 43–60; PULSE 54–104; RESP 16; TEMP 36.4–36.7; O2SAT 95–98
[2021-04-09] MEDS: Levothyroxine Sodium 75 MCG TABLET PO (06:01)
[2021-04-09 06:32] LABS: MANUAL DIFF FLAG NO
[2021-04-09 06:42] LABS: Basophils Percent Auto 0.2 % (0-2); Eosinophils Absolute Auto 0.1 X10*3/uL (0.0-0.4); Eosinophils Percent Auto 2.2 % (0-4); Hematocrit 35.9 % (42-52); Hemoglobin 12.1 g/dl (14.0-18.0); Imm Gran Abs Auto 0.01 X10*3/uL (0.00-0.03); Imm Gran Pct Auto 0.2 % (0.0-0.4); Lymphocytes Absolute Auto 1.2 X10*3/uL (1.2-4.9); Lymphocytes Percent Auto 27.1 % (20-40); Mean Corpuscular HGB Conc 33.7 g/dl (31.0-36.0); Mean Corpuscular Hemoglobin 31.8 pg (27.0-33.0); Mean Corpuscular Volume 94.2 fL (80-98); Mean Platelet Volume 9.6 fL (9.4-12.4); Monocytes Absolute Auto 0.4 X10*3/uL (0.1-1.2); Monocytes Percent Auto 8.9 % (2-11); Neutrophils Absolute Auto 2.7 X10*3/uL (2.0-8.3); Neutrophils Percent Auto 61.4 % (45-73); Platelet Count 148 X10*3/uL (160-400); Red Blood Count 3.81 X10*6/uL (4.60-5.80); Red Cell Distribution Width 13.6 % (11.0-16.0); White Blood Count 4.5 X10*3/uL (4.8-10.8)
[2021-04-09 06:53] LABS: Anion Gap 12 (12-20); Blood Urea Nitrogen 29 mg/dL (9-16); Calcium 9.2 mg/dL (8.4-10.2); Carbon Dioxide 30 mmol/L (22-29); Chloride 106 mmol/L (96-108); Creatinine Clr Calc Pharmacy 69.8; Estimated Glomerular Filt Rate > 60; Glucose Random 88 mg/dL (60-115); Potassium 3.7 mmol/L (3.3-5.1); Sodium 144 mmol/L (135-145)
[2021-04-09] MEDS: busPIRone HCl 10 MG TABLET PO ×2 (09:47→20:20)
[2021-04-09] MEDS: Ferrous Sulfate 324 MG TABLET.DR PO (09:47)
[2021-04-09] MEDS: Cyanocobalamin (Vitamin B-12) 1,000 MCG TABLET 1000 MCG PO (09:47)
[2021-04-09] MEDS: Cholecalciferol (Vitamin D3) 25 MCG TABLET 50 MCG PO (09:47)
[2021-04-09] MEDS: calcium polycarbophiL TABLET 2 TAB PO (09:47)
[2021-04-09] MEDS: ARIPiprazole 5 MG TABLET PO (09:48)
[2021-04-09] MEDS: lisinopriL 20 MG TABLET PO (09:48)
[2021-04-09] MEDS: NIFEdipine ER 90 MG TAB.ER.24 PO (09:48)
--- NOTE | 2021-04-09 14:00 | PC.NURSE ---
Patient came back from fresh air break SOB and Blurred vision [id number]. BP in right arm manual is 70/45, BP in left arm automated 75/43. pluse is 104 O2stat is 97. Paged doctor. advised to reassess in 15 minutes.
--- NOTE | 2021-04-09 14:13 | HO.PSYCHPN ---
Subjective Subjective Date of Service: 04/09/21 Reason For Visit: acute psychosis Subjective Notes: Conditional Voluntary Interim History: The nursing staff reported the patient has been isolative, he slept well last night and he went out only for meds. Denies new visual hallucinations but yesterday he complained about it. Dietary came reported the patient is under nourished and we will increased his diet with Ensure 3 times a day. On interview, the patient denies new symptoms she reports mild dysphoria Mental Status Exam Mental Status Exam Patient Appearance: Well Grooomed Patient Orientation: Person Level of Consciousness: Awake and Appropriate Patient Behavior: Cooperative Mood Description: Depressed Affect Description: Constricted Patient Cognition Impaired: No Ability to Follow Directions: Good Speech Pattern: Appropriate Hallucinations: None Delusions: Not Present Thought Process: Slowed Thinking Thought Content: positive for Circumstantial Judgement: Fair Diagnostics Vital Signs (24Hr): Vital Signs - 24 hr 04/08/21 18:00 04/09/21 06:00 04/09/21 09:48 Temperature 98.4 F 97.6 F Pulse Rate 89 54 54 Respiratory Rate 17 Blood Pressure 107/55 L 122/60 122/60 Pulse Oximetry 97 98 Body Mass Index 17.8 Labs Results: 04/09/21 06:26 04/09/21 06:26 Labs: Laboratory Results - last 48 hr 04/08/21 04/08/21 04/08/21 06:15 06:15 16:21 WBC RBC Hgb Hct MCV MCH MCHC RDW Plt Count MPV Immature Gran % (Auto) Neut % (Auto) Lymph % (Auto) [place] % (Auto) Eos % (Auto) Baso % (Auto) Lymph # (Auto) [place] # (Auto) Eos # (Auto) Baso # (Auto) Abs Immat Gran (auto) Absolute Neuts (auto) Absolute Nucleated RBC Nucleated RBC % (auto) Sodium Potassium Chloride Carbon Dioxide Anion Gap BUN Creatinine Estim Creat Clear Calc Estimated GFR Random Glucose Calcium Vitamin B12 976 H Folate 5.6 Urine Color YELLOW Urine Appearance CLEAR Urine pH 6.0 Ur Specific [place] 1.020 Urine Protein TRACE Urine Glucose (UA) NEG Urine Ketones 5 Urine Blood NEG Urine Nitrite NEG Ur Leukocyte Esterase NEG 04/09/21 04/09/21 06:26 06:26 WBC 4.5 L RBC 3.81 L Hgb 12.1 L Hct 35.9 L MCV 94.2 MCH 31.8 MCHC 33.7 RDW 13.6 Plt Count 148 L MPV 9.6 Immature Gran % (Auto) 0.2 Neut % (Auto) 61.4 Lymph % (Auto) 27.1 [place] % (Auto) 8.9 Eos % (Auto) 2.2 Baso % (Auto) 0.2 Lymph # (Auto) 1.2 [place] # (Auto) 0.4 Eos # (Auto) 0.1 Baso # (Auto) 0.0 Abs Immat Gran (auto) 0.01 Absolute Neuts (auto) 2.7 Absolute Nucleated RBC 0.000 Nucleated RBC % (auto) 0.0 Sodium 144 Potassium 3.7 Chloride 106 Carbon Dioxide 30 H Anion Gap 12 BUN 29 H Creatinine 0.77 Estim Creat Clear Calc 69.8 Estimated GFR > 60 Random Glucose 88 Calcium 9.2 Vitamin B12 Folate Urine Color Urine Appearance Urine pH Ur Specific [place] Urine Protein Urine Glucose (UA) Urine Ketones Urine Blood Urine Nitrite Ur Leukocyte Esterase Imaging Radiology Impressions: ITS Impressions Head CT 04/08/21 12:58 IMPRESSION: Unremarkable exam. Medications Medications Current Medications Acetaminophen (Acetaminophen 325 Mg Tablet) 650 mg PO Q8H PRN PRN Reason: Pain Al Hydroxide/Mg Hydroxide (Magnesium Hydrox/Alum Hydrox 30 Ml Oral.Susp) 30 ml PO Q6H PRN PRN Reason: Heartburn/Nausea Aripiprazole (Aripiprazole 5 Mg Tablet) 5 mg PO DAILY [facility] Last Admin: 04/09/21 09:48 Dose: 5 mg Documented by: Atorvastatin Calcium (Atorvastatin Calcium 10 Mg Tablet) 10 mg PO BEDTIME [facility] Last Admin: 04/08/21 20:35 Dose: 10 mg Documented by: Buspirone HCl (Buspirone Hcl 10 Mg Tablet) 10 mg PO BID [facility] Last Admin: 04/09/21 09:47 Dose: 10 mg Documented by: Calcium Polycarbophil (Calcium Polycarbophil Tablet) 2 tab PO DAILY [facility] Last Admin: 04/09/21 09:47 Dose: 2 tab Documented by: Cyanocobalamin (Cyanocobalamin (Vitamin B-12) 1,000 Mcg Tablet) 1,000 mcg PO DAILY [facility] Last Admin: 04/09/21 09:47 Dose: 1,000 mcg Documented by: Ferrous Sulfate (Ferrous Sulfate 324 Mg Tablet.) 324 mg PO DAILY [facility] Last Admin: 04/09/21 09:47 Dose: 324 mg Documented by: Levothyroxine Sodium (Levothyroxine Sodium 75 Mcg Tablet) 75 mcg PO DAILY@0600 [facility] Last Admin: 04/09/21 06:01 Dose: 75 mcg Documented by: Lisinopril (Lisinopril 20 Mg Tablet) 20 mg PO DAILY [facility] Last Admin: 04/09/21 09:48 Dose: 20 mg Documented by: Magnesium Hydroxide (Milk Of Magnesia 30 Ml Oral.Susp) 30 ml PO DAILY PRN PRN Reason: Constipation Nifedipine (Nifedipine Er 90 Mg Tab.Er.24) 90 mg PO DAILY [facility] Last Admin: 04/09/21 09:48 Dose: 90 mg Documented by: Pharmacy Consult (Consult Rx Perform Med Rec) 1 each MISCELLANE ONCE PRN PRN Reason: Consult order Sertraline HCl (Sertraline Hcl 100 Mg Tablet) 200 mg PO BEDTIME [facility] Last Admin: 04/08/21 20:35 Dose: 200 mg Documented by: Vitamin D (Cholecalciferol (Vitamin D3) 25 Mcg Tablet) 50 mcg PO DAILY [facility] Last Admin: 04/09/21 09:47 Dose: 50 mcg Documented by: Allergies Allergies Allergy/AdvReac Type Severity Reaction Status Date / Time No Known Allergies Allergy Verified 04/04/21 15:34 Assessment & Plan Assessment & Plan (1) Routine medical exam: Status: Acute Code(s): Z00.00 - Encounter for general adult medical examination without abnormal findings (2) Depression: Qualifiers: Active/Remission status: currently active Depression Type: major depressive disorder Major depression episode severity: severe Major depression recurrence: recurrent Psychotic features: without psychotic features Qualified Code(s): F33.2 - Major depressive disorder, recurrent severe without psychotic features Status: Acute Code(s): F32.9 - Major depressive disorder, single episode, unspecified Assessment and Plan: Ct meds. No changes. Labs ordered. Denies psychotic Sx. Repeat CBC Assessment and Plan: 75 yo M admitted to the [facility]. Medical consult for routine medical H&P. Medically stable at this time. Chronic issues: 1. HTN continue MAYI / Nifedipine 2. HLT continue statin 3. Hypothyroidism synthroid Will sign off. Please reconsult if any concerns. Regarding his psychiatric care, we kept him with Zoloft 200 and Abilify 2 mg p.o. q.a.m.. Plan 1. Increase Abilify up to 5 mg p.o. q.a.m.. 2. Keep Zoloft. 3. CT scan without contrast, UA CBC and basic metabolic panel. So far his blood work came back normal Greater than 50% of the session was spent on counseling and/or coordination of care Reason for contiued inpatient stay Substantial Risk for: inability to function, rapid decompensation and med/psych decompensation
[2021-04-09] MEDS: Sertraline HCL 100 MG TABLET 200 MG PO (20:20)
[2021-04-09] MEDS: Atorvastatin Calcium 10 MG TABLET PO (20:20)
[2021-04-10] MEDS: Levothyroxine Sodium 75 MCG TABLET PO (06:19)
[2021-04-10 09:09] VITALS: BP 117/60; PULSE 77; RESP 15; TEMP 36.7; O2SAT 95
[2021-04-10] MEDS: Ferrous Sulfate 324 MG TABLET.DR PO (09:11)
[2021-04-10] MEDS: calcium polycarbophiL TABLET 2 TAB PO (09:11)
[2021-04-10] MEDS: Cyanocobalamin (Vitamin B-12) 1,000 MCG TABLET 1000 MCG PO (09:11)
[2021-04-10] MEDS: busPIRone HCl 10 MG TABLET PO ×2 (09:11→20:18)
[2021-04-10] MEDS: Cholecalciferol (Vitamin D3) 25 MCG TABLET 50 MCG PO (09:11)
[2021-04-10 09:12] VITALS: BP 117/60; PULSE 77
[2021-04-10] MEDS: NIFEdipine ER 90 MG TAB.ER.24 PO (09:12)
[2021-04-10] MEDS: lisinopriL 20 MG TABLET PO (09:12)
[2021-04-10] MEDS: ARIPiprazole 5 MG TABLET PO (09:12)
--- NOTE | 2021-04-10 13:28 | HO.PSYCHPN ---
Subjective Subjective Date of Service: 04/12/21 Reason For Visit: acute psychosis Subjective Notes: Conditional Voluntary Interim History: Pt reports feeling with low energy. He reports he is here because of catastrophic thinking which appears less as well as less rumination. Pt does report worrying about his memory and has noticed a change. Pt denies SI/HI. He reports eating a bit more now. He reports sleeping through most of his night. Pt denied visual hallucinations. Pt reports he was mostly seeing things at night as he was waking up. His reports to this keno writer that he was seeing things as he would either fall asleep or wake up during the day. Note that pt has bilat resting and action tremors, although family not completely certain such tremor may have been there even before [facility]. Pt also reports musical hallucinations at home not while in hospital. This keno writer completed MOCA- pt scored 17/30, most impairments in visuospatial, serial 7, fluency, recall after 5 minutes. Medication Compliance: Yes Side effects from medications: No Attending Groups: No Review of Systems Review of Systems General - no fevers or chills Cardiovascular - no chest pain Respiratory - no shortness of breath or cough Abdominal- no abdominal pain, nausea, vomiting, diarrhea Yes all other systems are reviewed and are negative (see psych notes for psych ROS) Diagnostics Vital Signs (24Hr): Vital Signs - 24 hr 04/10/21 09:09 04/10/21 09:12 04/10/21 16:00 Temperature 98.1 F Pulse Rate 77 77 62 Respiratory Rate 15 Blood Pressure 117/60 117/60 107/55 L Pulse Oximetry 95 04/10/21 19:46 Temperature Pulse Rate 82 Respiratory Rate Blood Pressure 105/59 L Pulse Oximetry Body Mass Index 17.8 Labs Results: 04/09/21 06:26 04/09/21 06:26 Labs: Laboratory Results - last 48 hr 04/09/21 04/09/21 06:26 06:26 WBC 4.5 L RBC 3.81 L Hgb 12.1 L Hct 35.9 L MCV 94.2 MCH 31.8 MCHC 33.7 RDW 13.6 Plt Count 148 L MPV 9.6 Immature Gran % (Auto) 0.2 Neut % (Auto) 61.4 Lymph % (Auto) 27.1 [place] % (Auto) 8.9 Eos % (Auto) 2.2 Baso % (Auto) 0.2 Lymph # (Auto) 1.2 [place] # (Auto) 0.4 Eos # (Auto) 0.1 Baso # (Auto) 0.0 Abs Immat Gran (auto) 0.01 Absolute Neuts (auto) 2.7 Absolute Nucleated RBC 0.000 Nucleated RBC % (auto) 0.0 Sodium 144 Potassium 3.7 Chloride 106 Carbon Dioxide 30 H Anion Gap 12 BUN 29 H Creatinine 0.77 Estim Creat Clear Calc 69.8 Estimated GFR > 60 Random Glucose 88 Calcium 9.2 Imaging Radiology Impressions: ITS Impressions Head CT 04/08/21 12:58 IMPRESSION: Unremarkable exam. Medications Medications Current Medications Acetaminophen (Acetaminophen 325 Mg Tablet) 650 mg PO Q8H PRN PRN Reason: Pain Al Hydroxide/Mg Hydroxide (Magnesium Hydrox/Alum Hydrox 30 Ml Oral.Susp) 30 ml PO Q6H PRN PRN Reason: Heartburn/Nausea Aripiprazole (Aripiprazole 5 Mg Tablet) 5 mg PO DAILY [facility] Last Admin: 04/10/21 09:12 Dose: 5 mg Documented by: Atorvastatin Calcium (Atorvastatin Calcium 10 Mg Tablet) 10 mg PO BEDTIME [facility] Last Admin: 04/10/21 20:18 Dose: 10 mg Documented by: Buspirone HCl (Buspirone Hcl 10 Mg Tablet) 10 mg PO BID [facility] Last Admin: 04/10/21 20:18 Dose: 10 mg Documented by: Calcium Polycarbophil (Calcium Polycarbophil Tablet) 2 tab PO DAILY [facility] Last Admin: 04/10/21 09:11 Dose: 2 tab Documented by: Cyanocobalamin (Cyanocobalamin (Vitamin B-12) 1,000 Mcg Tablet) 1,000 mcg PO DAILY [facility] Last Admin: 04/10/21 09:11 Dose: 1,000 mcg Documented by: Ferrous Sulfate (Ferrous Sulfate 324 Mg Tablet.) 324 mg PO DAILY [facility] Last Admin: 04/10/21 09:11 Dose: 324 mg Documented by: Levothyroxine Sodium (Levothyroxine Sodium 75 Mcg Tablet) 75 mcg PO DAILY@0600 [facility] Last Admin: 04/10/21 06:19 Dose: 75 mcg Documented by: Lisinopril (Lisinopril 20 Mg Tablet) 20 mg PO DAILY [facility] Last Admin: 04/10/21 09:12 Dose: 20 mg Documented by: Magnesium Hydroxide (Milk Of Magnesia 30 Ml Oral.Susp) 30 ml PO DAILY PRN PRN Reason: Constipation Nifedipine (Nifedipine Er 90 Mg Tab.Er.24) 90 mg PO DAILY [facility] Last Admin: 04/10/21 09:12 Dose: 90 mg Documented by: Pharmacy Consult (Consult Rx Perform Med Rec) 1 each MISCELLANE ONCE PRN PRN Reason: Consult order Sertraline HCl (Sertraline Hcl 100 Mg Tablet) 200 mg PO BEDTIME [facility] Last Admin: 04/10/21 20:18 Dose: 200 mg Documented by: Vitamin D (Cholecalciferol (Vitamin D3) 25 Mcg Tablet) 50 mcg PO DAILY [facility] Last Admin: 04/10/21 09:11 Dose: 50 mcg Documented by: Allergies Allergies Allergy/AdvReac Type Severity Reaction Status Date / Time No Known Allergies Allergy Verified 04/04/21 15:34 Assessment & Plan Assessment & Plan (1) MDD (major depressive disorder), recurrent episode, moderate: Status: Acute Code(s): F33.1 - Major depressive disorder, recurrent, moderate (2) Cognitive impairment: Status: Acute Code(s): R41.89 - Other symptoms and signs involving cognitive functions and awareness Assessment and Plan: 75 yo M admitted to [facility]. Chronic issues: 1. HTN continue MAYI / Nifedipine 2. HLT continue statin 3. Hypothyroidism synthroid Plan 1. continue Abilify up to 5 mg p.o. q.a.m. 2. Continue Sertraline 200mg po daily 3. CT scan without contrast, UA CBC and basic metabolic panel- note that although head CT shows increase Greater than 50% of the session was spent on counseling and/or coordination of care Reason for contiued inpatient stay Substantial Risk for: inability to function
--- NOTE | 2021-04-10 13:49 | MHC.CLN ---
F/U VISITING AT LUNCH. NO REPORTED CONCERNS WITH FOOD/MEALS. DIET=REGULAR WITH ENSURE 240 ML TID (1050 KCAL, 60 G PROTEIN).
[2021-04-10 16:00] VITALS: BP 107/55; PULSE 62
[2021-04-10 18:00] VITALS: BP 130/62; PULSE 79; RESP 19; TEMP 36.5; O2SAT 100
[2021-04-10 19:46] VITALS: BP 105/59; PULSE 82
[2021-04-10] MEDS: Atorvastatin Calcium 10 MG TABLET PO (20:18)
[2021-04-10] MEDS: Sertraline HCL 100 MG TABLET 200 MG PO (20:18)
[2021-04-11] VITALS (9 sets, daily range): BP systolic 89–115; BP diastolic 51–59; PULSE 56–104; RESP 16–18; TEMP 36.5–36.8; O2SAT 96–97; BMI 18.9
[2021-04-11] MEDS: Acetaminophen 325 MG TABLET 650 MG PO ×2 (00:24→09:36)
[2021-04-11] MEDS: Levothyroxine Sodium 75 MCG TABLET PO (05:53)
[2021-04-11] MEDS: busPIRone HCl 10 MG TABLET PO ×2 (09:13→20:45)
[2021-04-11] MEDS: ARIPiprazole 5 MG TABLET PO (09:13)
[2021-04-11] MEDS: calcium polycarbophiL TABLET 2 TAB PO (09:13)
[2021-04-11] MEDS: Cyanocobalamin (Vitamin B-12) 1,000 MCG TABLET 1000 MCG PO (09:14)
[2021-04-11] MEDS: Cholecalciferol (Vitamin D3) 25 MCG TABLET 50 MCG PO (09:14)
[2021-04-11] MEDS: Ferrous Sulfate 324 MG TABLET.DR PO (09:14)
[2021-04-11] MEDS: lisinopriL 20 MG TABLET PO (10:15)
[2021-04-11] MEDS: NIFEdipine ER 90 MG TAB.ER.24 PO (10:16)
--- NOTE | 2021-04-11 16:29 | HO.PSYCHPN ---
Subjective Subjective Date of Service: 04/12/21 Reason For Visit: acute psychosis Interim History: Pt reports feeling somewhat anxious, tired physically. He reports wanting to go home to his as he worries that something may happen to her. He reports fair sleep. He denies SI/HI. He does note less catastrophic thinking but still feeling anxious. Medication Compliance: Yes Side effects from medications: No Review of Systems Review of Systems General - no fevers or chills Cardiovascular - no chest pain Respiratory - no shortness of breath or cough Abdominal- no abdominal pain, nausea, vomiting, diarrhea Yes all other systems are reviewed and are negative (see psych notes for psych ROS) Mental Status Exam Mental Status Exam Narrative: Appearance: thin, casually groomed, fair hygiene in NAD Behavior: cooperative psychomotor: bilat resting, action tremor- may be present even before starting abilify Speech:clear, regular rate, soft tone, spontaneous Thought process:tangential at times Thought content:worried about , hoping to go home soon Mood: okay Affect: anxious SI:none HI:none VH/AH:none- Delusions:none Insight/judgment:fair x 2 Memory/cog: alert, orientation intact. However, this auto service writer completed MOCA on 04/11- pt scored 17/30, most impairments in visuospatial, serial 7, fluency, recall after 5 minutes. Orientation intact. OT- completed Slums on 04/11 pt scored 17/30, similar pattern of impairment suggestion major neurocognitive impairment. Diagnostics Vital Signs (24Hr): Vital Signs - 24 hr 04/11/21 21:17 04/11/21 22:00 04/11/21 22:09 Temperature 97.7 F Pulse Rate 87 56 81 Respiratory Rate 18 Blood Pressure 98/53 L 99/52 L 89/51 L Pulse Oximetry 97 04/11/21 22:16 04/12/21 06:00 04/12/21 10:09 Temperature 98.0 F Pulse Rate 70 74 74 Respiratory Rate Blood Pressure 94/53 L 108/54 L 108/54 L Pulse Oximetry 97 Body Mass Index 18.9 Labs Results: 04/09/21 06:26 04/09/21 06:26 Imaging Radiology Impressions: ITS Impressions Head CT 04/08/21 12:58 IMPRESSION: Unremarkable exam. Medications Medications Current Medications Acetaminophen (Acetaminophen 325 Mg Tablet) 650 mg PO Q8H PRN PRN Reason: Pain Last Admin: 04/11/21 09:36 Dose: 650 mg Documented by: Al Hydroxide/Mg Hydroxide (Magnesium Hydrox/Alum Hydrox 30 Ml Oral.Susp) 30 ml PO Q6H PRN PRN Reason: Heartburn/Nausea Aripiprazole (Aripiprazole 5 Mg Tablet) 5 mg PO DAILY [facility] Last Admin: 04/12/21 10:08 Dose: 5 mg Documented by: Atorvastatin Calcium (Atorvastatin Calcium 10 Mg Tablet) 10 mg PO BEDTIME [facility] Last Admin: 04/11/21 20:45 Dose: 10 mg Documented by: Buspirone HCl (Buspirone Hcl 10 Mg Tablet) 10 mg PO BID [facility] Last Admin: 04/12/21 10:08 Dose: 10 mg Documented by: Calcium Polycarbophil (Calcium Polycarbophil Tablet) 2 tab PO DAILY [facility] Last Admin: 04/12/21 10:08 Dose: 2 tab Documented by: Cyanocobalamin (Cyanocobalamin (Vitamin B-12) 1,000 Mcg Tablet) 1,000 mcg PO DAILY [facility] Last Admin: 04/12/21 10:08 Dose: 1,000 mcg Documented by: Ferrous Sulfate (Ferrous Sulfate 324 Mg Tablet.Dr) 324 mg PO DAILY [facility] Last Admin: 04/12/21 10:09 Dose: 324 mg Documented by: Levothyroxine Sodium (Levothyroxine Sodium 75 Mcg Tablet) 75 mcg PO DAILY@0600 [facility] Last Admin: 04/12/21 05:56 Dose: 75 mcg Documented by: Lisinopril (Lisinopril 20 Mg Tablet) 20 mg PO DAILY [facility] Last Admin: 04/12/21 10:09 Dose: 20 mg Documented by: Magnesium Hydroxide (Milk Of Magnesia 30 Ml Oral.Susp) 30 ml PO DAILY PRN PRN Reason: Constipation Nifedipine (Nifedipine Er 90 Mg Tab.Er.24) 90 mg PO DAILY [facility] Last Admin: 04/12/21 10:09 Dose: 90 mg Documented by: Pharmacy Consult (Consult Rx Perform Med Rec) 1 each MISCELLANE ONCE PRN PRN Reason: Consult order Sertraline HCl (Sertraline Hcl 100 Mg Tablet) 200 mg PO BEDTIME [facility] Last Admin: 04/11/21 20:45 Dose: 200 mg Documented by: Vitamin D (Cholecalciferol (Vitamin D3) 25 Mcg Tablet) 50 mcg PO DAILY [facility] Last Admin: 04/12/21 10:08 Dose: 50 mcg Documented by: Allergies Allergies Allergy/AdvReac Type Severity Reaction Status Date / Time No Known Allergies Allergy Verified 04/04/21 15:34 Assessment & Plan Assessment & Plan (1) MDD (major depressive disorder), recurrent episode, moderate: Status: Acute Code(s): F33.1 - Major depressive disorder, recurrent, moderate (2) Cognitive impairment: Status: Acute Code(s): R41.89 - Other symptoms and signs involving cognitive functions and awareness Assessment and Plan: MOCA on 04/11- pt scored 17/30, most impairments in visuospatial, serial 7, fluency, recall after 5 minutes. Orientation intact. OT- completed Slums on 04/11 pt scored 17/30, similar pattern of impairment suggestion major neurocognitive impairment. Assessment and Plan: Mr. Gomez is a 75 year-old male who was admitted to [facility] due to increase rumination, seeing people who were not there, mostly at night, worried about someone breaking in. Pt and family report cognitive decline. MOCA and Slums do show significant cognitive impairment specially in recall and executive function. Note that pt has bilat hand resting and action tremors- family suggest it is possible these tremors although new were present even prior to initiating abilify. Also note that reports VH evident when pt was either falling asleep or waking up sometimes at night and even during the day. notes pt has been more somnolent/lethargic prior to coming to unit. As of 04/12, both family and pt report less ruminations, less catastrophic thinking noted but still considerate anxious mood. Mr. Gomez may benefit from follow up with neurology- further evaluate, possible combination of tremors, hypnagogic/hypnopompic hallucinations, ? REM sleep disorder Chronic issues: 1. HTN continue MAYI / Nifedipine 2. HLT continue statin 3. Hypothyroidism synthroid Plan 1. continue Abilify up to 5 mg p.o. q.a.m. 2. Continue Sertraline 200mg po daily 3. CT scan without contrast, UA CBC and basic metabolic panel Greater than 50% of the session was spent on counseling and/or coordination of care Reason for contiued inpatient stay Substantial Risk for: inability to function
[2021-04-11] MEDS: Sertraline HCL 100 MG TABLET 200 MG PO (20:45)
[2021-04-11] MEDS: Atorvastatin Calcium 10 MG TABLET PO (20:45)
[2021-04-12] MEDS: Levothyroxine Sodium 75 MCG TABLET PO (05:56)
[2021-04-12 06:00] VITALS: BP 108/54; PULSE 74; TEMP 36.7; O2SAT 97
[2021-04-12 08:00] VITALS: BP 100/58; PULSE 68
[2021-04-12] MEDS: ARIPiprazole 5 MG TABLET PO (10:08)
[2021-04-12] MEDS: busPIRone HCl 10 MG TABLET PO ×2 (10:08→20:19)
[2021-04-12] MEDS: Cyanocobalamin (Vitamin B-12) 1,000 MCG TABLET 1000 MCG PO (10:08)
[2021-04-12] MEDS: calcium polycarbophiL TABLET 2 TAB PO (10:08)
[2021-04-12] MEDS: Cholecalciferol (Vitamin D3) 25 MCG TABLET 50 MCG PO (10:08)
[2021-04-12 10:09] VITALS: BP 108/54; PULSE 74
[2021-04-12] MEDS: lisinopriL 20 MG TABLET PO (10:09)
[2021-04-12] MEDS: Ferrous Sulfate 324 MG TABLET.DR PO (10:09)
[2021-04-12] MEDS: NIFEdipine ER 90 MG TAB.ER.24 PO (10:09)
--- NOTE | 2021-04-12 15:14 | MHC.CLN ---
F/U APPEARS TO HAVE FAVORABLE WEIGHT GAIN X 1 WEEK, +6.4%. DIET=REGUALR WITH ENSURE TID (1050 KCAL, [address] TO FOLLOW PATIENT WEEKLY.
[2021-04-12 16:00] VITALS: BP 108/60; PULSE 70
--- NOTE | 2021-04-12 16:10 | HO.PSYCHPN ---
Subjective Subjective Date of Service: 04/12/21 Reason For Visit: acute psychosis Subjective Notes: Conditional Voluntary Interim History: Pt reports feeling with low energy. He reports he is here because of catastrophic thinking which appears less as well as less rumination. Pt does report worrying about his memory and has noticed a change. Pt denies SI/HI. He reports eating a bit more now. He reports sleeping through most of his night. Pt denied visual hallucinations. Pt reports he was mostly seeing things at night as he was waking up. His reports to this proposal manager writer that he was seeing things as he would either fall asleep or wake up during the day. Note that pt has bilat resting and action tremors, although family not completely certain such tremor may have been there even before abilify. Pt also reports musical hallucinations at home not while in hospital. This proposal manager writer completed MOCA- pt scored 17/30, most impairments in visuospatial, serial 7, fluency, recall after 5 minutes. Medication Compliance: Yes Side effects from medications: No Review of Systems Acute medical concerns: No Review of Systems Review of Systems General - no fevers or chills Cardiovascular - no chest pain Respiratory - no shortness of breath or cough Abdominal- no abdominal pain, nausea, vomiting, diarrhea Yes all other systems are reviewed and are negative (see psych notes for psych ROS) Mental Status Exam Mental Status Exam Narrative: Appearance: thin, casually groomed, fair hygiene in NAD Behavior: cooperative psychomotor: bilat resting, action tremor- may be present even before starting abilify Speech:clear, regular rate, soft tone, spontaneous Thought process:tangential at times Thought content:worried about , hoping to go home soon Mood: okay Affect: anxious SI:none HI:none VH/AH:none- Delusions:none Insight/judgment:fair x 2 Memory/cog: alert, orientation intact. However, this proposal manager writer completed MOCA on 04/11- pt scored 17/30, most impairments in visuospatial, serial 7, fluency, recall after 5 minutes. Orientation intact. OT- completed Slums on 04/11 pt scored 17/30, similar pattern of impairment suggestion major neurocognitive impairment. Diagnostics Vital Signs (24Hr): Vital Signs - 24 hr 04/11/21 21:17 04/11/21 22:00 04/11/21 22:09 Temperature 97.7 F Pulse Rate 87 56 81 Respiratory Rate 18 Blood Pressure 98/53 L 99/52 L 89/51 L Pulse Oximetry 97 04/11/21 22:16 04/12/21 06:00 04/12/21 10:09 Temperature 98.0 F Pulse Rate 70 74 74 Respiratory Rate Blood Pressure 94/53 L 108/54 L 108/54 L Pulse Oximetry 97 Body Mass Index 18.9 Labs Results: 04/09/21 06:26 04/09/21 06:26 Imaging Radiology Impressions: [facility] Impressions Head CT 04/08/21 12:58 IMPRESSION: Unremarkable exam. Medications Medications Current Medications Acetaminophen (Acetaminophen 325 Mg Tablet) 650 mg PO Q8H PRN PRN Reason: Pain Last Admin: 04/11/21 09:36 Dose: 650 mg Documented by: Al Hydroxide/Mg Hydroxide (Magnesium Hydrox/Alum Hydrox 30 Ml Oral.Susp) 30 ml PO Q6H PRN PRN Reason: Heartburn/Nausea Aripiprazole (Aripiprazole 5 Mg Tablet) 5 mg PO DAILY [facility] Last Admin: 04/12/21 10:08 Dose: 5 mg Documented by: Atorvastatin Calcium (Atorvastatin Calcium 10 Mg Tablet) 10 mg PO BEDTIME [facility] Last Admin: 04/11/21 20:45 Dose: 10 mg Documented by: Buspirone HCl (Buspirone Hcl 10 Mg Tablet) 10 mg PO BID [facility] Last Admin: 04/12/21 10:08 Dose: 10 mg Documented by: Calcium Polycarbophil (Calcium Polycarbophil Tablet) 2 tab PO DAILY [facility] Last Admin: 04/12/21 10:08 Dose: 2 tab Documented by: Cyanocobalamin (Cyanocobalamin (Vitamin B-12) 1,000 Mcg Tablet) 1,000 mcg PO DAILY [facility] Last Admin: 04/12/21 10:08 Dose: 1,000 mcg Documented by: Ferrous Sulfate (Ferrous Sulfate 324 Mg Tablet.) 324 mg PO DAILY [facility] Last Admin: 04/12/21 10:09 Dose: 324 mg Documented by: Levothyroxine Sodium (Levothyroxine Sodium 75 Mcg Tablet) 75 mcg PO DAILY@0600 [facility] Last Admin: 04/12/21 05:56 Dose: 75 mcg Documented by: Lisinopril (Lisinopril 20 Mg Tablet) 20 mg PO DAILY [facility] Last Admin: 04/12/21 10:09 Dose: 20 mg Documented by: Magnesium Hydroxide (Milk Of Magnesia 30 Ml Oral.Susp) 30 ml PO DAILY PRN PRN Reason: Constipation Nifedipine (Nifedipine Er 90 Mg Tab.Er.24) 90 mg PO DAILY [facility] Last Admin: 04/12/21 10:09 Dose: 90 mg Documented by: Pharmacy Consult (Consult Rx Perform Med Rec) 1 each MISCELLANE ONCE PRN PRN Reason: Consult order Sertraline HCl (Sertraline Hcl 100 Mg Tablet) 200 mg PO BEDTIME [facility] Last Admin: 04/11/21 20:45 Dose: 200 mg Documented by: Vitamin D (Cholecalciferol (Vitamin D3) 25 Mcg Tablet) 50 mcg PO DAILY [facility] Last Admin: 04/12/21 10:08 Dose: 50 mcg Documented by: Allergies Allergies Allergy/AdvReac Type Severity Reaction Status Date / Time No Known Allergies Allergy Verified 04/04/21 15:34 Assessment & Plan Assessment & Plan (1) MDD (major depressive disorder), recurrent episode, moderate: Status: Acute Code(s): F33.1 - Major depressive disorder, recurrent, moderate (2) Cognitive impairment: Status: Acute Code(s): R41.89 - Other symptoms and signs involving cognitive functions and awareness Assessment and Plan: MOCA on 04/11- pt scored 17/30, most impairments in visuospatial, serial 7, fluency, recall after 5 minutes. Orientation intact. OT- completed Slums on 04/11 pt scored 17/30, similar pattern of impairment suggestion major neurocognitive impairment. Assessment and Plan: Mr. Gomez is a 75 year-old male who was admitted to [facility] due to increase rumination, seeing people who were not there, mostly at night, worried about someone breaking in. Pt and family report cognitive decline. MOCA and Slums do show significant cognitive impairment specially in recall and executive function. Note that pt has bilat hand resting and action tremors- family suggest it is possible these tremors although new were present even prior to initiating abilify. Also note that reports VH evident when pt was either falling asleep or waking up sometimes at night and even during the day. notes pt has been more somnolent/lethargic prior to coming to unit. As of 04/12, both family and pt report less ruminations, less catastrophic thinking noted but still considerate anxious mood. Mr. Gomez may benefit from follow up with neurology- further evaluate, possible combination of tremors, hypnagogic/hypnopompic hallucinations, ? REM sleep disorder Chronic issues: 1. HTN continue MAYI / Nifedipine 2. HLT continue statin 3. Hypothyroidism synthroid Plan 1. continue Abilify up to 5 mg p.o. q.a.m. 2. Continue Sertraline 200mg po daily 3. CT scan without contrast, UA CBC and basic metabolic panel Greater than 50% of the session was spent on counseling and/or coordination of care Reason for contiued inpatient stay Substantial Risk for: inability to function
--- NOTE | 2021-04-12 19:38 | PC.NURSE ---
Pt's came to visit this evening. The pt's reported that the pt stated to her today I don't think Im going to be coming home, I know I'm going to here . The pt's reports she does not feel the pt has improved while inpatient in regards to his level of depression.
[2021-04-12] MEDS: Sertraline HCL 100 MG TABLET 200 MG PO (20:18)
[2021-04-12] MEDS: Atorvastatin Calcium 10 MG TABLET PO (20:18)
[2021-04-13] MEDS: Levothyroxine Sodium 75 MCG TABLET PO (05:49)
[2021-04-13] MEDS: Cholecalciferol (Vitamin D3) 25 MCG TABLET 50 MCG PO (08:42)
[2021-04-13] MEDS: calcium polycarbophiL TABLET 2 TAB PO (08:42)
[2021-04-13] MEDS: busPIRone HCl 10 MG TABLET PO ×2 (08:44→20:03)
[2021-04-13] MEDS: Cyanocobalamin (Vitamin B-12) 1,000 MCG TABLET 1000 MCG PO (08:45)
[2021-04-13] MEDS: ARIPiprazole 5 MG TABLET PO (08:45)
[2021-04-13 08:52] VITALS: BP 113/52; PULSE 75; RESP 16; TEMP 36.6; O2SAT 97
[2021-04-13 08:54] VITALS: BP 113/52; PULSE 75
--- NOTE | 2021-04-13 10:09 | HO.PSYCHPN ---
Subjective Subjective Date of Service: 04/13/21 Reason For Visit: acute psychosis Subjective Notes: Conditional Voluntary Interim History: Patient was seen in rounds today. He has been isolative, still somewhat depressed. His blood pressures have been running a low and this morning was 113/52. To antihypertensives, lisinopril and nifedipine were held. This will continue to be monitored. No other complaints. He continues to be anxious and eager to return. No changes were made today Review of Systems Review of Systems General - no fevers or chills Cardiovascular - no chest pain Respiratory - no shortness of breath or cough Abdominal- no abdominal pain, nausea, vomiting, diarrhea Yes all other systems are reviewed and are negative (see psych notes for psych ROS) Diagnostics Vital Signs (24Hr): Vital Signs - 24 hr 04/12/21 16:00 04/13/21 08:52 04/13/21 08:54 Temperature 97.8 F Pulse Rate 70 75 75 Respiratory Rate 16 Blood Pressure 108/60 113/52 L 113/52 L Pulse Oximetry 97 Body Mass Index 18.9 Labs Results: 04/09/21 06:26 04/09/21 06:26 Imaging Radiology Impressions: [facility] Impressions Head CT 04/08/21 12:58 IMPRESSION: Unremarkable exam. Medications Medications Current Medications Acetaminophen (Acetaminophen 325 Mg Tablet) 650 mg PO Q8H PRN PRN Reason: Pain Last Admin: 04/11/21 09:36 Dose: 650 mg Documented by: Al Hydroxide/Mg Hydroxide (Magnesium Hydrox/Alum Hydrox 30 Ml Oral.Susp) 30 ml PO Q6H PRN PRN Reason: Heartburn/Nausea Aripiprazole (Aripiprazole 5 Mg Tablet) 5 mg PO DAILY [facility] Last Admin: 04/13/21 08:45 Dose: 5 mg Documented by: Atorvastatin Calcium (Atorvastatin Calcium 10 Mg Tablet) 10 mg PO BEDTIME [facility] Last Admin: 04/12/21 20:18 Dose: 10 mg Documented by: Buspirone HCl (Buspirone Hcl 10 Mg Tablet) 10 mg PO BID [facility] Last Admin: 04/13/21 08:44 Dose: 10 mg Documented by: Calcium Polycarbophil (Calcium Polycarbophil Tablet) 2 tab PO DAILY [facility] Last Admin: 04/13/21 08:42 Dose: 2 tab Documented by: Cyanocobalamin (Cyanocobalamin (Vitamin B-12) 1,000 Mcg Tablet) 1,000 mcg PO DAILY [facility] Last Admin: 04/13/21 08:45 Dose: 1,000 mcg Documented by: Ferrous Sulfate (Ferrous Sulfate 324 Mg Tablet.) 324 mg PO DAILY [facility] Last Admin: 04/12/21 10:09 Dose: 324 mg Documented by: Levothyroxine Sodium (Levothyroxine Sodium 75 Mcg Tablet) 75 mcg PO DAILY@0600 [facility] Last Admin: 04/13/21 05:49 Dose: 75 mcg Documented by: Lisinopril (Lisinopril 20 Mg Tablet) 20 mg PO DAILY [facility] Last Admin: 04/13/21 08:54 Dose: Not Given Documented by: Magnesium Hydroxide (Milk Of Magnesia 30 Ml Oral.Susp) 30 ml PO DAILY PRN PRN Reason: Constipation Nifedipine (Nifedipine Er 90 Mg Tab.Er.24) 90 mg PO DAILY [facility] Last Admin: 04/13/21 08:54 Dose: Not Given Documented by: Pharmacy Consult (Consult Rx Perform Med Rec) 1 each MISCELLANE ONCE PRN PRN Reason: Consult order Sertraline HCl (Sertraline Hcl 100 Mg Tablet) 200 mg PO BEDTIME [facility] Last Admin: 04/12/21 20:18 Dose: 200 mg Documented by: Vitamin D (Cholecalciferol (Vitamin D3) 25 Mcg Tablet) 50 mcg PO DAILY [facility] Last Admin: 04/13/21 08:42 Dose: 50 mcg Documented by: Allergies Allergies Allergy/AdvReac Type Severity Reaction Status Date / Time No Known Allergies Allergy Verified 04/04/21 15:34 Assessment & Plan Assessment & Plan (1) MDD (major depressive disorder), recurrent episode, moderate: Status: Acute Code(s): F33.1 - Major depressive disorder, recurrent, moderate (2) Cognitive impairment: Status: Acute Code(s): R41.89 - Other symptoms and signs involving cognitive functions and awareness Assessment and Plan: MOCA on 04/11- pt scored 17/30, most impairments in visuospatial, serial 7, fluency, recall after 5 minutes. Orientation intact. OT- completed Slums on 04/11 pt scored 17/30, similar pattern of impairment suggestion major neurocognitive impairment. Assessment and Plan: Mr. Gomez is a 75 year-old male who was admitted to [facility] due to increase rumination, seeing people who were not there, mostly at night, worried about someone breaking in. Pt and family report cognitive decline. MOCA and Slums do show significant cognitive impairment specially in recall and executive function. Note that pt has bilat hand resting and action tremors- family suggest it is possible these tremors although new were present even prior to initiating abilify. Also note that reports VH evident when pt was either falling asleep or waking up sometimes at night and even during the day. notes pt has been more somnolent/lethargic prior to coming to unit. As of 04/12, both family and pt report less ruminations, less catastrophic thinking noted but still considerate anxious mood. Mr. Gomez may benefit from follow up with neurology- further evaluate, possible combination of tremors, hypnagogic/hypnopompic hallucinations, ? REM sleep disorder Chronic issues: 1. HTN continue MAYI / Nifedipine 2. HLT continue statin 3. Hypothyroidism synthroid Plan Current medications and treatment plan reviewed and maintained with no changes Greater than 50% of the session was spent on counseling and/or coordination of care Reason for contiued inpatient stay Substantial Risk for: other
[2021-04-13] MEDS: Ferrous Sulfate 324 MG TABLET.DR PO (10:57)
[2021-04-13 18:00] VITALS: BP 140/63; PULSE 66; RESP 20; TEMP 36.3; O2SAT 97
[2021-04-13] MEDS: Sertraline HCL 100 MG TABLET 200 MG PO (20:02)
[2021-04-13] MEDS: Atorvastatin Calcium 10 MG TABLET PO (20:03)
[2021-04-14] MEDS: Levothyroxine Sodium 75 MCG TABLET PO (05:31)
[2021-04-14 05:41] VITALS: BP 110/54; PULSE 65; RESP 18; TEMP 36.6; O2SAT 97
[2021-04-14] MEDS: calcium polycarbophiL TABLET 2 TAB PO (08:10)
[2021-04-14] MEDS: busPIRone HCl 10 MG TABLET PO ×2 (08:10→20:39)
[2021-04-14] MEDS: ARIPiprazole 5 MG TABLET PO (08:10)
[2021-04-14] MEDS: Cholecalciferol (Vitamin D3) 25 MCG TABLET 50 MCG PO (08:10)
[2021-04-14 08:11] VITALS: BP 110/54; PULSE 65
[2021-04-14] MEDS: Ferrous Sulfate 324 MG TABLET.DR PO (08:11)
[2021-04-14] MEDS: lisinopriL 20 MG TABLET PO (08:11)
[2021-04-14] MEDS: NIFEdipine ER 90 MG TAB.ER.24 PO (08:11)
[2021-04-14] MEDS: Cyanocobalamin (Vitamin B-12) 1,000 MCG TABLET 1000 MCG PO (08:11)
--- NOTE | 2021-04-14 09:18 | P.PNPSI_ITS ---
Subjective Subjective Date of Service: 04/14/21 Reason For Visit: acute psychosis Subjective Notes: Conditional Voluntary Interim History: Patient was seen and discussed in rounds today. He is doing well. Eating and sleeping adequately. Continues to feel depressed. Confusion continues. His vital signs have been within range. He is med compliant. No complaints or side effects. Eating and sleeping well. No changes were made today Medication Compliance: Yes Side effects from medications: No Review of Systems Review of Systems General - no fevers or chills Cardiovascular - no chest pain Respiratory - no shortness of breath or cough Abdominal- no abdominal pain, nausea, vomiting, diarrhea Yes all other systems are reviewed and are negative (see psych notes for psych ROS) Diagnostics Vital Signs (24Hr): Vital Signs - 24 hr 04/13/21 18:00 04/14/21 05:41 04/14/21 08:11 Temperature 97.3 F 97.9 F Pulse Rate 66 65 65 Respiratory Rate 20 18 Blood Pressure 140/63 H 110/54 L 110/54 L Pulse Oximetry 97 97 Body Mass Index 18.9 Labs Results: 04/09/21 06:26 04/09/21 06:26 Imaging Radiology Impressions: ITS Impressions Head CT 04/08/21 12:58 IMPRESSION: Unremarkable exam. Medications Medications Current Medications Acetaminophen (Acetaminophen 325 Mg Tablet) 650 mg PO Q8H PRN PRN Reason: Pain Last Admin: 04/11/21 09:36 Dose: 650 mg Documented by: Al Hydroxide/Mg Hydroxide (Magnesium Hydrox/Alum Hydrox 30 Ml Oral.Susp) 30 ml PO Q6H PRN PRN Reason: Heartburn/Nausea Aripiprazole (Aripiprazole 5 Mg Tablet) 5 mg PO DAILY [facility] Last Admin: 04/14/21 08:10 Dose: 5 mg Documented by: Atorvastatin Calcium (Atorvastatin Calcium 10 Mg Tablet) 10 mg PO BEDTIME [facility] Last Admin: 04/13/21 20:03 Dose: 10 mg Documented by: Buspirone HCl (Buspirone Hcl 10 Mg Tablet) 10 mg PO BID [facility] Last Admin: 04/14/21 08:10 Dose: 10 mg Documented by: Calcium Polycarbophil (Calcium Polycarbophil Tablet) 2 tab PO DAILY [facility] Last Admin: 04/14/21 08:10 Dose: 2 tab Documented by: Cyanocobalamin (Cyanocobalamin (Vitamin B-12) 1,000 Mcg Tablet) 1,000 mcg PO DAILY [facility] Last Admin: 04/14/21 08:11 Dose: 1,000 mcg Documented by: Ferrous Sulfate (Ferrous Sulfate 324 Mg Tablet.) 324 mg PO DAILY [facility] Last Admin: 04/14/21 08:11 Dose: 324 mg Documented by: Levothyroxine Sodium (Levothyroxine Sodium 75 Mcg Tablet) 75 mcg PO DAILY@0600 [facility] Last Admin: 04/14/21 05:31 Dose: 75 mcg Documented by: Lisinopril (Lisinopril 20 Mg Tablet) 20 mg PO DAILY [facility] Last Admin: 04/14/21 08:11 Dose: 20 mg Documented by: Magnesium Hydroxide (Milk Of Magnesia 30 Ml Oral.Susp) 30 ml PO DAILY PRN PRN Reason: Constipation Nifedipine (Nifedipine Er 90 Mg Tab.Er.24) 90 mg PO DAILY [facility] Last Admin: 04/14/21 08:11 Dose: 90 mg Documented by: Pharmacy Consult (Consult Rx Perform Med Rec) 1 each MISCELLANE ONCE PRN PRN Reason: Consult order Sertraline HCl (Sertraline Hcl 100 Mg Tablet) 200 mg PO BEDTIME [facility] Last Admin: 04/13/21 20:02 Dose: 200 mg Documented by: Vitamin D (Cholecalciferol (Vitamin D3) 25 Mcg Tablet) 50 mcg PO DAILY [facility] Last Admin: 04/14/21 08:10 Dose: 50 mcg Documented by: Allergies Allergies Allergy/AdvReac Type Severity Reaction Status Date / Time No Known Allergies Allergy Verified 04/04/21 15:34 Assessment & Plan Assessment & Plan (1) MDD (major depressive disorder), recurrent episode, moderate: Status: Acute Code(s): F33.1 - Major depressive disorder, recurrent, moderate (2) Cognitive impairment: Status: Acute Code(s): R41.89 - Other symptoms and signs involving cognitive functions and awareness Assessment and Plan: MOCA on 04/11- pt scored 17/30, most impairments in visuospatial, serial 7, fluency, recall after 5 minutes. Orientation intact. OT- completed Slums on 04/11 pt scored 17/30, similar pattern of impairment suggestion major neurocognitive impairment. Assessment and Plan: Mr. Gomez is a 75 year-old male who was admitted to [facility] due to increase rumination, seeing people who were not there, mostly at night, worried about someone breaking in. Pt and family report cognitive decline. MOCA and Slums do show significant cognitive impairment specially in recall and executive function. Note that pt has bilat hand resting and action tremors- family suggest it is possible these tremors although new were present even prior to initiating abilify. Also note that reports VH evident when pt was either falling asleep or waking up sometimes at night and even during the day. notes pt has been more somnolent/lethargic prior to coming to unit. As of 04/12, both family and pt report less ruminations, less catastrophic thinking noted but still considerate anxious mood. Mr. Gomez may benefit from follow up with neurology- further evaluate, possible combination of tremors, hypnagogic/hypnopompic hallucinations, ? REM sleep disorder Chronic issues: 1. HTN continue MAYI / Nifedipine 2. HLT continue statin 3. Hypothyroidism synthroid Plan Current medications and treatment plan reviewed and maintained with no changes Reason for contiued inpatient stay Substantial Risk for: other
[2021-04-14 18:00] VITALS: BP 115/54; PULSE 66; RESP 16; TEMP 37; O2SAT 97
[2021-04-14] MEDS: Sertraline HCL 100 MG TABLET 200 MG PO (20:39)
[2021-04-14] MEDS: Atorvastatin Calcium 10 MG TABLET PO (20:39)
[2021-04-15] MEDS: Levothyroxine Sodium 75 MCG TABLET PO (06:37)
[2021-04-15 08:59] VITALS: BP 124/57; PULSE 61
[2021-04-15] MEDS: calcium polycarbophiL TABLET 2 TAB PO (08:59)
[2021-04-15] MEDS: lisinopriL 20 MG TABLET PO (08:59)
[2021-04-15] MEDS: ARIPiprazole 5 MG TABLET PO (08:59)
[2021-04-15] MEDS: Cyanocobalamin (Vitamin B-12) 1,000 MCG TABLET 1000 MCG PO (08:59)
[2021-04-15] MEDS: busPIRone HCl 10 MG TABLET PO ×2 (08:59→20:06)
[2021-04-15] MEDS: Cholecalciferol (Vitamin D3) 25 MCG TABLET 50 MCG PO (08:59)
[2021-04-15] MEDS: Ferrous Sulfate 324 MG TABLET.DR PO (08:59)
[2021-04-15 09:03] VITALS: BP 124/57; PULSE 61
[2021-04-15] MEDS: NIFEdipine ER 90 MG TAB.ER.24 PO (09:03)
[2021-04-15 09:05] VITALS: BP 124/57; PULSE 61; RESP 18; TEMP 37.3; O2SAT 98
--- NOTE | 2021-04-15 11:20 | P.PNPSI_ITS ---
Subjective Subjective Date of Service: 04/15/21 Reason For Visit: acute psychosis Subjective Notes: Conditional Voluntary Interim History: The nursing staff reported that the patient attended a few groups, he has been medication compliant he slept well. His reported that he has been catastrophizing is stating ?I will here?. OT has done testing and he is in the dementia range. On interview, the patient denies new symptoms and he is willing to continue treatment as an outpatient. Apparently, the the patient and his were concerned about a new diagnosis of dementia. Review of Systems Acute medical concerns: No Medical Review of Systems: unchanged Mental Status Exam Mental Status Exam Patient Appearance: Well Grooomed Patient Orientation: Person Level of Consciousness: Awake Patient Behavior: Cooperative Mood Description: Depressed Affect Description: Constricted Patient Cognition Impaired: Yes Ability to Follow Directions: Fair Speech Pattern: Clear Memory Description: Intact Hallucinations: None Delusions: Not Present Thought Process: Linear Thought Content: positive for Circumstantial and positive for Poverty of Content Judgement: Fair Diagnostics Vital Signs (24Hr): Vital Signs - 24 hr 04/14/21 18:00 04/15/21 08:59 04/15/21 09:03 Temperature 98.6 F Pulse Rate 66 61 61 Respiratory Rate 16 Blood Pressure 115/54 L 124/57 L 124/57 L Pulse Oximetry 97 04/15/21 09:05 Temperature 99.2 F Pulse Rate 61 Respiratory Rate 18 Blood Pressure 124/57 L Pulse Oximetry 98 Body Mass Index 18.9 Labs Results: 04/09/21 06:26 04/09/21 06:26 Imaging Radiology Impressions: ITS Impressions Head CT 04/08/21 12:58 IMPRESSION: Unremarkable exam. Medications Medications Current Medications Acetaminophen (Acetaminophen 325 Mg Tablet) 650 mg PO Q8H PRN PRN Reason: Pain Last Admin: 04/11/21 09:36 Dose: 650 mg Documented by: Al Hydroxide/Mg Hydroxide (Magnesium Hydrox/Alum Hydrox 30 Ml Oral.Susp) 30 ml PO Q6H PRN PRN Reason: Heartburn/Nausea Aripiprazole (Aripiprazole 5 Mg Tablet) 5 mg PO DAILY [facility] Last Admin: 04/15/21 08:59 Dose: 5 mg Documented by: Atorvastatin Calcium (Atorvastatin Calcium 10 Mg Tablet) 10 mg PO BEDTIME [facility] Last Admin: 04/14/21 20:39 Dose: 10 mg Documented by: Buspirone HCl (Buspirone Hcl 10 Mg Tablet) 10 mg PO BID [facility] Last Admin: 04/15/21 08:59 Dose: 10 mg Documented by: Calcium Polycarbophil (Calcium Polycarbophil Tablet) 2 tab PO DAILY [facility] Last Admin: 04/15/21 08:59 Dose: 2 tab Documented by: Cyanocobalamin (Cyanocobalamin (Vitamin B-12) 1,000 Mcg Tablet) 1,000 mcg PO DAILY [facility] Last Admin: 04/15/21 08:59 Dose: 1,000 mcg Documented by: Ferrous Sulfate (Ferrous Sulfate 324 Mg Tablet.) 324 mg PO DAILY [facility] Last Admin: 04/15/21 08:59 Dose: 324 mg Documented by: Levothyroxine Sodium (Levothyroxine Sodium 75 Mcg Tablet) 75 mcg PO DAILY@0600 [facility] Last Admin: 04/15/21 06:37 Dose: 75 mcg Documented by: Lisinopril (Lisinopril 20 Mg Tablet) 20 mg PO DAILY [facility] Last Admin: 04/15/21 08:59 Dose: 20 mg Documented by: Magnesium Hydroxide (Milk Of Magnesia 30 Ml Oral.Susp) 30 ml PO DAILY PRN PRN Reason: Constipation Nifedipine (Nifedipine Er 90 Mg Tab.Er.24) 90 mg PO DAILY [facility] Last Admin: 04/15/21 09:03 Dose: 90 mg Documented by: Pharmacy Consult (Consult Rx Perform Med Rec) 1 each MISCELLANE ONCE PRN PRN Reason: Consult order Sertraline HCl (Sertraline Hcl 100 Mg Tablet) 200 mg PO BEDTIME [facility] Last Admin: 04/14/21 20:39 Dose: 200 mg Documented by: Vitamin D (Cholecalciferol (Vitamin D3) 25 Mcg Tablet) 50 mcg PO DAILY [facility] Last Admin: 04/15/21 08:59 Dose: 50 mcg Documented by: Allergies Allergies Allergy/AdvReac Type Severity Reaction Status Date / Time No Known Allergies Allergy Verified 04/04/21 15:34 Assessment & Plan Assessment & Plan (1) MDD (major depressive disorder), recurrent episode, moderate: Status: Acute Code(s): F33.1 - Major depressive disorder, recurrent, moderate (2) Cognitive impairment: Status: Acute Code(s): R41.89 - Other symptoms and signs involving cognitive functions and awareness Assessment and Plan: MOCA on 04/11- pt scored 17/30, most impairments in visuospatial, serial 7, fluency, recall after 5 minutes. Orientation intact. OT- completed Slums on 04/11 pt scored 17/30, similar pattern of impairment suggestion major neurocognitive impairment. Assessment and Plan: Mr. Gomez is a 75 year-old male who was admitted to [facility] due to increase rumination, seeing people who were not there, mostly at night, worried about so meone breaking in. Pt and family report cognitive decline. MOCA and Slums do show significant cognitive impairment specially in recall and executive function. Note that pt has bilat hand resting and action tremors- family suggest it is possible these tremors although new were present even prior to initiating abilify. Also note that reports VH evident when pt was either falling asleep or waking up sometimes at night and even during the day. notes pt has been more somnolent/lethargic prior to coming to unit. As of 04/12, both family and pt report less ruminations, less catastrophic thinking noted but still considerate anxious mood. Currently, the patient is at baseline and there is no evidence of visual hallucinations. Plan. 1. Continue with Abilify and Zoloft 200 mg. 2. Discharge for tomorrow with outpatient services Greater than 50% of the session was spent on counseling and/or coordination of care Reason for contiued inpatient stay Substantial Risk for: inability to function, rapid decompensation and med/psych decompensation
[2021-04-15 18:00] VITALS: BP 101/55; PULSE 92; RESP 18; TEMP 36.8; O2SAT 97
[2021-04-15] MEDS: Atorvastatin Calcium 10 MG TABLET PO (20:06)
[2021-04-15] MEDS: Sertraline HCL 100 MG TABLET 200 MG PO (20:06)
[2021-04-16] MEDS: Levothyroxine Sodium 75 MCG TABLET PO (05:57)
[2021-04-16 06:00] VITALS: BP 130/66; PULSE 62; TEMP 36.1; O2SAT 97
[2021-04-16 09:34] VITALS: BP 130/66; PULSE 62
[2021-04-16] MEDS: busPIRone HCl 10 MG TABLET PO ×2 (09:34→20:15)
[2021-04-16] MEDS: NIFEdipine ER 90 MG TAB.ER.24 PO (09:34)
[2021-04-16 09:35] VITALS: BP 130/66; PULSE 62
[2021-04-16] MEDS: ARIPiprazole 5 MG TABLET PO (09:35)
[2021-04-16] MEDS: lisinopriL 20 MG TABLET PO (09:35)
[2021-04-16] MEDS: calcium polycarbophiL TABLET 2 TAB PO (09:35)
[2021-04-16] MEDS: Cyanocobalamin (Vitamin B-12) 1,000 MCG TABLET 1000 MCG PO (09:35)
[2021-04-16] MEDS: Cholecalciferol (Vitamin D3) 25 MCG TABLET 50 MCG PO (09:39)
[2021-04-16] MEDS: Ferrous Sulfate 324 MG TABLET.DR PO (09:39)
--- NOTE | 2021-04-16 14:56 | P.PNPSI_ITS ---
Subjective Subjective Date of Service: 04/16/21 Reason For Visit: acute psychosis Subjective Notes: Conditional Voluntary Interim History: The nursing staff reported the patient is doing fine, he is slightly depressed but no safety concerns. Occupational therapist reported that his slums score 17. On interview, the patient denies new symptoms that he is willing to be discharged soon. Mental Status Exam Mental Status Exam Patient Appearance: Well Grooomed Patient Orientation: Person Level of Consciousness: Awake Patient Behavior: Appropriate Mood Description: Constricted Affect Description: Constricted Patient Cognition Impaired: Yes Ability to Follow Directions: Good Speech Pattern: Clear Hallucinations: None Delusions: Not Present Thought Process: Goal Oriented Thought Content: positive for Circumstantial Judgement: Fair Diagnostics Vital Signs (24Hr): Vital Signs - 24 hr 04/15/21 18:00 04/16/21 06:00 04/16/21 09:34 Temperature 98.3 F 97 F Pulse Rate 92 62 62 Respiratory Rate 18 Blood Pressure 101/55 L 130/66 130/66 Pulse Oximetry 97 97 04/16/21 09:35 Temperature Pulse Rate 62 Respiratory Rate Blood Pressure 130/66 Pulse Oximetry Body Mass Index 18.9 Labs Results: 04/09/21 06:26 04/09/21 06:26 Imaging Radiology Impressions: ITS Impressions Head CT 04/08/21 12:58 IMPRESSION: Unremarkable exam. Medications Medications Current Medications Acetaminophen (Acetaminophen 325 Mg Tablet) 650 mg PO Q8H PRN PRN Reason: Pain Last Admin: 04/11/21 09:36 Dose: 650 mg Documented by: Al Hydroxide/Mg Hydroxide (Magnesium Hydrox/Alum Hydrox 30 Ml Oral.Susp) 30 ml PO Q6H PRN PRN Reason: Heartburn/Nausea Aripiprazole (Aripiprazole 5 Mg Tablet) 5 mg PO DAILY [facility] Last Admin: 04/16/21 09:35 Dose: 5 mg Documented by: Atorvastatin Calcium (Atorvastatin Calcium 10 Mg Tablet) 10 mg PO BEDTIME [facility] Last Admin: 04/15/21 20:06 Dose: 10 mg Documented by: Buspirone HCl (Buspirone Hcl 10 Mg Tablet) 10 mg PO BID [facility] Last Admin: 04/16/21 09:34 Dose: 10 mg Documented by: Calcium Polycarbophil (Calcium Polycarbophil Tablet) 2 tab PO DAILY [facility] Last Admin: 04/16/21 09:35 Dose: 2 tab Documented by: Cyanocobalamin (Cyanocobalamin (Vitamin B-12) 1,000 Mcg Tablet) 1,000 mcg PO DAILY [facility] Last Admin: 04/16/21 09:35 Dose: 1,000 mcg Documented by: Ferrous Sulfate (Ferrous Sulfate 324 Mg Tablet.) 324 mg PO DAILY [facility] Last Admin: 04/16/21 09:39 Dose: 324 mg Documented by: Levothyroxine Sodium (Levothyroxine Sodium 75 Mcg Tablet) 75 mcg PO DAILY@0600 [facility] Last Admin: 04/16/21 05:57 Dose: 75 mcg Documented by: Lisinopril (Lisinopril 20 Mg Tablet) 20 mg PO DAILY [facility] Last Admin: 04/16/21 09:35 Dose: 20 mg Documented by: Magnesium Hydroxide (Milk Of Magnesia 30 Ml Oral.Susp) 30 ml PO DAILY PRN PRN Reason: Constipation Nifedipine (Nifedipine Er 90 Mg Tab.Er.24) 90 mg PO DAILY [facility] Last Admin: 04/16/21 09:34 Dose: 90 mg Documented by: Pharmacy Consult (Consult Rx Perform Med Rec) 1 each MISCELLANE ONCE PRN PRN Reason: Consult order Sertraline HCl (Sertraline Hcl 100 Mg Tablet) 200 mg PO BEDTIME [facility] Last Admin: 04/15/21 20:06 Dose: 200 mg Documented by: Vitamin D (Cholecalciferol (Vitamin D3) 25 Mcg Tablet) 50 mcg PO DAILY [facility] Last Admin: 04/16/21 09:39 Dose: 50 mcg Documented by: Allergies Allergies Allergy/AdvReac Type Severity Reaction Status Date / Time No Known Allergies Allergy Verified 04/04/21 15:34 Assessment & Plan Assessment & Plan (1) MDD (major depressive disorder), recurrent episode, moderate: Status: Acute Code(s): F33.1 - Major depressive disorder, recurrent, moderate (2) Cognitive impairment: Status: Acute Code(s): R41.89 - Other symptoms and signs involving cognitive functions and awareness Assessment and Plan: MOCA on 04/11- pt scored 17/30, most impairments in visuospatial, serial 7, fluency, recall after 5 minutes. Orientation intact. OT- completed Slums on 04/11 pt scored 17/30, similar pattern of impairment suggestion major neurocognitive impairment. Assessment and Plan: Mr. Gomez is a 75 year-old male who was admitted to [facility] due to increase rumination, seeing people who were not there, mostly at night, worried about someone breaking in. Pt and family report cognitive decline. MOCA and Slums do show significant cognitive impairment specially in recall and executive function. Note that pt has bilat hand resting and action tremors- family suggest it is possible these tremors although new were present even prior to initiating abilify. Also note that reports VH evident when pt was either falling asleep or waking up sometimes at night and even during the day. notes pt has been more somnolent/lethargic prior to coming to unit. As of 04/12, both seven weller and pt report less ruminations, less catastrophic thinking noted but still considerate anxious mood. Currently, the patient is at baseline and there is no evidence of visual hallucinations. Plan. 1. Continue with Abilify and Zoloft 200 mg. 2. Discharge soon. 3. Start Aricept 5 mg p.o. q.h.s. Greater than 50% of the session was spent on counseling and/or coordination of care Reason for contiued inpatient stay Substantial Risk for: stable for discharge and med/psych decompensation
[2021-04-16] MEDS: Sertraline HCL 100 MG TABLET 200 MG PO (20:15)
[2021-04-16] MEDS: Donepezil HCl 5 MG TABLET PO (20:15)
[2021-04-16] MEDS: Atorvastatin Calcium 10 MG TABLET PO (20:15)
[2021-04-16 20:55] VITALS: BP 125/60; PULSE 71; RESP 15; TEMP 36.6; O2SAT 96
[2021-04-17] MEDS: Levothyroxine Sodium 75 MCG TABLET PO (06:13)
[2021-04-17 08:16] VITALS: BP 135/63; PULSE 79; RESP 16; TEMP 36.1; O2SAT 96
[2021-04-17] MEDS: busPIRone HCl 10 MG TABLET PO (08:19)
[2021-04-17] MEDS: Cholecalciferol (Vitamin D3) 25 MCG TABLET 50 MCG PO (08:19)
[2021-04-17] MEDS: calcium polycarbophiL TABLET 2 TAB PO (08:19)
[2021-04-17] MEDS: ARIPiprazole 5 MG TABLET PO (08:19)
[2021-04-17 08:20] VITALS: BP 135/63; PULSE 79
[2021-04-17] MEDS: Ferrous Sulfate 324 MG TABLET.DR PO (08:20)
[2021-04-17] MEDS: NIFEdipine ER 90 MG TAB.ER.24 PO (08:20)
[2021-04-17] MEDS: lisinopriL 20 MG TABLET PO (08:20)
[2021-04-17] MEDS: Cyanocobalamin (Vitamin B-12) 1,000 MCG TABLET 1000 MCG PO (08:20)
--- NOTE | 2021-04-17 10:00 | P.DS_ITS ---
DS: Providers Provider Date of Service: 04/17/21 Date of admission: 04/04/21 19:39 Date of discharge: 04/17/21 Primary care physician: Nishant Corral MD Consults: 04/05/21 12:27 Consult to Hospitalist Routine Consulting Provider: Hospitalist Reason For Exam: Hospitalist Consult for Psych Admission Attending physician on discharge: Jose Knapp DS: Diagnosis Discharge Diagnosis (1) MDD (major depressive disorder), recurrent episode, moderate: Status: Acute (2) Cognitive impairment: Status: Acute DS: Medications Discharge Medications Home Medications: Home Medications Medication Instructions Recorded Confirmed acetaminophen 650 mg 650 mg PO Q8H PRN 04/04/21 04/04/21 tablet,extended release aripiprazole 2 mg tablet 1 tab PO DAILY 04/04/21 04/04/21 buspirone 10 mg tablet 10 mg PO BID 04/04/21 04/04/21 calcium polycarbophil 625 mg 1,250 mg PO DAILY 04/04/21 04/04/21 tablet (FiberCon) cholecalciferol (vitamin D3) 50 50 mcg PO DAILY 04/04/21 04/04/21 mcg (2,000 unit) tablet cyanocobalamin (vitamin B-12) 1,000 mcg PO DAILY 04/04/21 04/04/21 1,000 mcg tablet ferrous sulfate 325 mg (65 mg 325 mg PO DAILY 04/04/21 04/04/21 iron) tablet (Feosol) fosinopril 20 mg tablet 20 mg PO DAILY 04/04/21 04/04/21 levothyroxine 75 mcg tablet 75 mcg PO DAILY 04/04/21 04/04/21 nifedipine 90 mg tablet,extended 90 mg PO DAILY 04/04/21 04/04/21 release sertraline 100 mg tablet 200 mg PO BEDTIME 04/04/21 04/04/21 simvastatin 20 mg tablet 20 mg PO BEDTIME 04/04/21 04/04/21 vitamins A,C,[id number] 14,320 2 cap PO DAILY 04/04/21 04/04/21 unit-226 mg-200 unit capsule (PreserVision AREDS) Mental Status Exam Mental Status Exam Patient Appearance: Well Grooomed Patient Orientation: Person, Place and Situation Level of Consciousness: Awake and Appropriate Patient Behavior: Cooperative Mood Description: Depressed Affect Description: Constricted Patient Cognition Impaired: Yes Ability to Follow Directions: Good Speech Pattern: Clear Hallucinations: None Delusions: Not Present Thought Process: Goal Oriented Thought Content: positive for Circumstantial Judgement: Fair Data Imaging Diagnostic Imaging Impressions Head CT 04/08/21 12:58 IMPRESSION: Unremarkable exam. DS: Summary Hospital Course Hospital Course: The patient was initially admitted for exacerbation of depression with psychotic symptoms elicited by increased dysphoria, anhedonia, lack of energy and feelings of hopelessness with visual hallucinations. Recently, Abilify was added as augmentation for depression with no improvement. We gather collateral information and we did several tests, including a CT scan, vitamin B12 level and folate levels, without evidence of a new diagnosis. On admission, he was able to contract for safety he was willing to continue treatment in the facility. Even though that he was dysphoric, eventually he was able to participate in groups and other therapeutic activities in the unit. We did a [place] test and he scored is slightly low on the executive functions so we added Aricept 5 mg p.o. q.h.s.. We also have increased Abilify up to 5 mg p.o. q.a.m. to target depression as an augmentation strategy for depression. While he was in the unit, he denied visual hallucinations he was able to contract for safety and his mood improved. Since there were no safety concerns discharge planning was discussed. 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 The appointment is 1/2 hour in length. ) [facility] [Other] - 1 Week ([facility]. SS will contact you once you are home. ) [facility] [Other] - 04/18/21 10:00 am (Your next tele-psychotherapy appointment with Xiao is scheduled for 04/18/21 at 10:00am.) [facility] [Other] - 04/19/21 ([facility] and occupational therapy. A start of service date is Thursday04/19/21. ) Nishant Corral MD [Primary Care Provider] - 1 Week Discharge Medications: New donepezil 5 mg Tablet 5 mg PO BEDTIME 30 Days Qty: 30 RF: 0 aripiprazole [Abilify] 5 mg Tablet 5 mg PO DAILY 30 Days Qty: 30 RF: 0 Continued acetaminophen 650 mg Tablet Extended Release 650 mg PO Q8H PRN (Reason: Pain) RF: 0 nifedipine 90 mg tablet extended release 90 mg PO DAILY 30 Days Qty: 30 RF: 0 sertraline 100 mg tablet 200 mg PO BEDTIME 30 Days Qty: 60 RF: 0 cyanocobalamin (vitamin B-12) 1,000 mcg Tablet 1,000 mcg PO DAILY 30 Days Qty: 30 RF: 0 fosinopril 20 mg tablet 20 mg PO DAILY 30 Days Qty: 30 RF: 0 levothyroxine 75 mcg tablet 75 mcg PO DAILY 30 Days Qty: 30 RF: 0 simvastatin 20 mg tablet 20 mg PO BEDTIME 30 Days Qty: 30 RF: 0 ferrous sulfate [Feosol] 325 mg (65 mg iron) Tablet 325 mg PO DAILY 30 Days Qty: 30 RF: 0 buspirone 10 mg tablet 10 mg PO BID 30 Days Qty: 60 RF: 0 calcium polycarbophil [FiberCon] 625 mg Tablet 1,250 mg PO DAILY 30 Days Qty: 60 RF: 0 PreserVision AREDS [id number] Capsule 2 cap PO DAILY 30 Days Qty: 60 RF: 0 cholecalciferol (vitamin D3) 50 mcg (2,000 unit) Tablet 50 mcg PO DAILY 30 Days Qty: 30 RF: 0 Discontinued aripiprazole 2 mg tablet 1 tab PO DAILY RF: 0 Discharge Orders: Discharge Order (Routine); Ordered 04/17/21 Ordered By: Jose Knapp Diet: advance to usual diet Activity on Discharge: As tolerated Stand Alone Forms: Patient Portal Discharge page Care Plan Goals: Care plan goals over the achieved in the unit Health Concerns: Continues medical treatment by his PCP Plan of Treatment: Continue medication treatment by Dr. Galvez at outpatient psychiatrist Assessment: The patient is an elderly male with a history of major depressive disorder that was exacerbated after his detention with the sudden appearance of auditory hallucinations and visual hallucinations in the context of worsening of dysphoria. He responded very well to the increase of Abilify and in the unit we found out a mild cognitive impairment so we started Aricept 5 mg p.o. q.h.s.
--- NOTE | 2021-04-17 11:53 | PC.NURSE ---
Patient alert and oriented. Presented as slightly anxious due to dc. and daughter were present. All dc instructions were reviewed with patient and family. Everyone present expressed understanding. All belongings were accounted for and reviewed. Meds that had been stored in med room were returned to patient. Patient was dressed in street clothes and escorted to car uneventfully.
== END 2021-04-17 11:57 | disposition home or self-care (01) | DRG 885 ==
LOC: HO.ED 15:44 → HO.PGERI 21:07
PROVIDERS: Psychiatry & Neurology Psychiatry; Admitting Provider Psychiatry & Neurology Psychiatry; Emergency Provider Emergency Medicine; PCP Internal Medicine; Visit Provider Psychiatry & Neurology Psychiatry
DX: F33.1 Major depressive disorder, recurrent, moderate (principal); R45.851 Suicidal ideations; R44.1 Visual hallucinations; G31.84 Mild cognitive impairment of uncertain or unknown etiology; E03.9 Hypothyroidism, unspecified; I10 Essential (primary) hypertension; E78.5 Hyperlipidemia, unspecified; Z20.822 Contact with and (suspected) exposure to COVID-19; Z79.890 Hormone replacement therapy; Z79.899 Other long term (current) drug therapy
CPT/HCPCS: 36415; 70450; 80048; 80053; 80307; 81001; 81003; 82607; 82746; 84443; 85025; 87635; 93005; 99285

== ENCOUNTER → 2021-12-04 10:50 | Outpatient (BNVA) | payer MEDICARE, OTHER, SELFPAY | PROVIDERS: PCP Internal Medicine; Visit Provider Nurse Practitioner Family | DX: R41.89 Other symptoms and signs involving cognitive functions and awareness (principal); R63.4 Abnormal weight loss; R53.83 Other fatigue; F33.1 Major depressive disorder, recurrent, moderate | CPT/HCPCS: 99202 ==

== ENCOUNTER 2021-12-30 15:57 | Inpatient (IN) | payer MEDICARE, OTHER, SELFPAY ==
--- NOTE | ~2021-12-30 | XR_ITS ---
EXAMINATION: XR CHEST CLINICAL INFORMATION: Cough, fever, evaluate for pneumonia. COMPARISON: 01/09/2022 TECHNIQUE: 2 views of the chest were obtained. FINDINGS: Lungs are well expanded and without acute disease. No consolidation or pleural effusion. Cardiac silhouette is normal in size. There is atherosclerotic calcification of the aortic arch. There appears to be a small hiatal hernia (due to finding of air fluid level in the lower mediastinum). Multilevel osteophyte formation of the thoracic spine. XR/XR chest 2V IMPRESSION: * No evidence of pneumonia. * There is likely a small hiatal hernia of the stomach.
--- NOTE | ~2021-12-30 | CT_ITS ---
EXAMINATION: CT HEAD WITHOUT CONTRAST CLINICAL INFORMATION: Fall, no loss of consciousness. COMPARISON: CT head 01/09/2022. TECHNIQUE: Contiguous axial imaging was performed from the skull base to vertex without intravenous administration of contrast. This CT examination was performed using dose optimization techniques as appropriate, variously including the following: *Automated exposure control *Adjustment of mA and/or kV according to patient size (this includes techniques or standardized protocols for targeted exams where dose is matched to indication/reason for exam; i.e. extremities or head) *Use of iterative reconstruction technique DLP: 707 mGy-cm FINDINGS: There is no evidence of acute intracranial hemorrhage or edematous territorial infarction. Scattered hypoattenuation in the periventricular and deep white matter are consistent with moderate microangiopathy. Arvizu-white matter differentiation is preserved. Proportional prominence of the ventricles and sulcal spaces. No evidence for obstructive hydrocephalus. No abnormal mass effect or midline shift. No extra-axial fluid collections. Small left parietal scalp hematoma. No acute osseous abnormalities. The mastoid air cells and paranasal sinuses are clear. Periapical lucencies, consider dental referral. CT/CT head/brain wo con IMPRESSION: No evidence of acute intracranial hemorrhage or edematous territorial infarction.
--- NOTE | ~2021-12-30 | XR_ITS ---
EXAMINATION: CT BRAIN AND CHEST WITH LEFT RIBS. CLINICAL INFORMATION: Fell. Hit head. COMPARISON: None TECHNIQUE: Chest and left RIBS 4 views. 5 mm thin axial and reformatted 2 mm thin sagittal coronal images of brain were obtained. DLP 632 FINDINGS: Brain: There is a large left frontal scalp hematoma without calvarial fracture. No other scalp abnormality seen. The calvarium is intact. There is no acute intra-axial, extra-axial bleed, masses, collection or midline shift. There is no acute infarction evolution. There is no edema. The posterior fossa appears unremarkable. There are vascular calcifications present. There is no edema The lateral ventricles are symmetrical but enlarged and so are the cortical sulci. The bony orbits, optic globe and optic nerve appears intact Chest and left RIBS: Both lungs are fairly well-expanded and clear of acute process. The heart size and pulmonary vascularity is normal. Multiple views left ribs reveal no visible left rib fracture or bony abnormality. Mild spondylosis seen throughout dorsal spine. XR/XR ribs LT min 3V w CXR1V IMPRESSION: Moderate to large left scalp hematoma without calvarial fracture. No acute intracranial process seen. No left rib fracture abnormality seen. The lungs are clear
[2021-12-30 16:09] VITALS: BP 126/51; PULSE 66; RESP 18; TEMP 36.6; O2SAT 96; BMI 17.3
--- NOTE | 2021-12-30 22:34 | ED.GENADULT ---
HPI - General Adult General Chief complaint: General Medical <Dieudonne Wooten MD - Last Filed: 12/31/21 06:26> Stated complaint: weight loss/confused/UTI <Dieudonne Wooten MD - Last Filed: 12/31/21 06:26> Time Seen by Provider: 12/30/21 22:34 <Dieudonne Wooten MD - Last Filed: 12/31/21 06:26> Source: family <Dieudonne Wooten MD - Last Filed: 12/31/21 06:26> Mode of arrival: ambulatory <Dieudonne Wooten MD - Last Filed: 12/31/21 06:26> Limitations: other (severe depression and demential) <Dieudonne Wooten MD - Last Filed: 12/31/21 06:26> History of Present Illness HPI narrative: 9 months ago patient was seen for weight loss and depression, had a dementia work up and was admitted to the [facility]. Yesterday was found wandering up the street unattended. Patient does eat but not much. Increased agitation <Dieudonne Wooten MD - Last Filed: 12/31/21 06:26> Onset (ago): year(s) <Dieudonne Wooten MD - Last Filed: 12/31/21 06:26> Severity: severe <Dieudonne Wooten MD - Last Filed: 12/31/21 06:26> Associated symptoms: confusion and other (sleeping) <Dieudonne Wooten MD - Last Filed: 12/31/21 06:26> Related Data Home medications: Home Medications Medication Instructions Recorded Confirmed acetaminophen 650 mg 650 mg PO Q8H PRN Pain 04/04/21 12/31/21 tablet,extended release sertraline 100 mg tablet 100 mg PO BEDTIME 12/04/21 12/31/21 aripiprazole 10 mg tablet 1 tab PO DAILY 12/31/21 12/31/21 donepezil 10 mg tablet 1 tab PO DAILY 12/31/21 12/31/21 ferrous sulfate 325 mg (65 mg 325 mg PO DAILY 12/31/21 12/31/21 iron) tablet mirtazapine 15 mg tablet 1 tab PO BEDTIME 12/31/21 12/31/21 Previous Rx's Medication Instructions Recorded calcium polycarbophil 625 mg 1,250 mg PO DAILY 30 days #60 tabs 04/17/21 tablet (FiberCon) cholecalciferol (vitamin D3) 50 50 mcg PO DAILY 30 days #30 tabs 04/17/21 mcg (2,000 unit) tablet cyanocobalamin (vitamin B-12) 1,000 mcg PO DAILY 30 days #30 tabs 04/17/21 1,000 mcg tablet levothyroxine 75 mcg tablet 75 mcg PO DAILY 30 days #30 tabs 04/17/21 simvastatin 20 mg tablet 20 mg PO BEDTIME 30 days #30 tabs 04/17/21 vitamins A,C,T-fryn-lfxmbu 14,320 2 cap PO DAILY 30 days #60 caps 04/17/21 unit-226 mg-200 unit capsule (PreserVision AREDS) <Dieudonne Wooten MD - Last Filed: 12/31/21 06:26> Allergies/adverse reactions: Allergies Allergy/AdvReac Type Severity Reaction Status Date / Time No Known Allergies Allergy Verified 12/04/21 10:54 <Dieudonne Wooten MD - Last Filed: 12/31/21 06:26> Review of Systems Review of Systems: Yes Unobtainable due to mental status <Dieduonne Wooten MD - Last Filed: 12/31/21 06:26> [facility] Past Medical History Medical History: Medical History Depression Depression HLD (hyperlipidemia) HTN (hypertension) Hypothyroidism Prostate cancer <Dieudonne Wooten MD - Last Filed: 12/31/21 06:26> Surgical History: Surgical History H/O prostatectomy History of hernia surgery <Dieudonne Wooten MD - Last Filed: 12/31/21 06:26> Family History Family History: Family History Other Prostate cancer <Dieudonne Wooten MD - Last Filed: 12/31/21 06:26> Social History Social History: Social History Household Members: Spouse Housing: House Do you presently have visiting nurse or other home services: No Patient Tobacco Use Status: Former Tobacco user e-Cigarette/Vaping Use: Never Used Advance Directives: No service: Yes Sexual orientation: Straight/Heterosexual <Dieudonne Wooten MD - Last Filed: 12/31/21 06:26> Physical Exam ED Vital Signs: Vital Signs - 24 hr 12/31/21 04:26 12/31/21 06:20 12/31/21 08:07 Temperature 98.3 F Pulse Rate 49 L 58 60 Respiratory Rate 14 18 18 Blood Pressure 154/62 H 130/65 133/69 Pulse Oximetry 98 96 94 Oxygen Delivery Method Room Air Room Air Room Air 12/31/21 11:42 12/31/21 16:00 12/31/21 22:00 Temperature 98.6 F 98.1 F Pulse Rate 47 L 55 59 Respiratory Rate 16 16 16 Blood Pressure 145/67 H 135/62 133/65 Pulse Oximetry 97 97 97 Oxygen Delivery Method Room Air Room Air Room Air BMI result Body Mass Index 17.3 <Dieudonne Wooten MD - Last Filed: 12/31/21 06:26> Vital Signs - 24 hr 12/31/21 04:26 12/31/21 06:20 12/31/21 08:07 Temperature 98.3 F Pulse Rate 49 L 58 60 Respiratory Rate 14 18 18 Blood Pressure 154/62 H 130/65 133/69 Pulse Oximetry 98 96 94 Oxygen Delivery Method Room Air Room Air Room Air 12/31/21 11:42 12/31/21 16:00 12/31/21 22:00 Temperature 98.6 F 98.1 F Pulse Rate 47 L 55 59 Respiratory Rate 16 16 16 Blood Pressure 145/67 H 135/62 133/65 Pulse Oximetry 97 97 97 Oxygen Delivery Method Room Air Room Air Room Air BMI result Body Mass Index 17.3 <ITA Bustos - Last Filed: 01/01/22 02:46> Const Other: cachectic flat affect <Dieudonne Wooten MD - Last Filed: 12/31/21 06:26> Orientation/consciousness: oriented to person <Dieudonne Wooten MD - Last Filed: 12/31/21 06:26> Limitations: behavioral limitations <Dieudonne Wooten MD - Last Filed: 12/31/21 06:26> HENMT Head: Yes normal to inspection <Dieudonne Wooten MD - Last Filed: 12/31/21 06:26> Ears: external ears normal <Dieudonne Wooten MD - Last Filed: 12/31/21 06:26> General nose exam: Normal external nose present <Dieudonne Wooten MD - Last Filed: 12/31/21 06:26> Mouth: Normal oral and palatal mucosa present and oropharynx normal <Dieudonne Wooten MD - Last Filed: 12/31/21 06:26> Throat: Yes posterior oropharynx normal <Dieudonne Wooten MD - Last Filed: 12/31/21 06:26> Eyes General: appearance normal, both eyes and all related structures <Dieudonne Wooten MD - Last Filed: 12/31/21 06:26> Neck Neck: Yes normal visual inspection <Dieudonne Wooten MD - Last Filed: 12/31/21 06:26> Chest Chest palpation & inspection: normal inspection of the chest <Dieudonne Wooten MD - Last Filed: 12/31/21 06:26> Resp Auscultation: clear to auscultation bilaterally <Dieudonne Wooten MD - Last Filed: 12/31/21 06:26> Cardio Jugular venous distension: no JVD <Dieudonne Wooten MD - Last Filed: 12/31/21 06:26> Rate: regular rate <Dieudonne Wooten MD - Last Filed: 12/31/21 06:26> Rhythm: regular rhythm <Dieudonne Wooten MD - Last Filed: 12/31/21 06:26> Heart sounds: S1 normal heart sound present and S2 normal heart sound present <Dieudonne Wooten MD - Last Filed: 12/31/21 06:26> GI Inspection: Yes normal to inspection <Dieudonne Wooten MD - Last Filed: 12/31/21 06:26> Palpation (GI): Soft to palpation, nontender and No hepatosplenomegaly present <Dieudonne Wooten MD - Last Filed: 12/31/21 06:26> Auscultation: normal bowel sounds <Dieudonne Wooten MD - Last Filed: 12/31/21 06:26> General: Yes no CVA tenderness <Dieudonne Wooten MD - Last Filed: 12/31/21 06:26> Back/Spine/Pelvis Back: no CVA tenderness <Dieudonne Wooten MD - Last Filed: 12/31/21 06:26> Skin General skin exam: no rashes or lesions noted <Dieudonne Wooten MD - Last Filed: 12/31/21 06:26> Neuro General: oriented to person <Dieudonne Wooten MD - Last Filed: 12/31/21 06:26> Cranial nerves: Yes CN's II-XII intact bilaterally <Dieudonne Wooten MD - Last Filed: 12/31/21 06:26> Motor exam (neuro): 5/5 motor strength present throughout <Dieudonne Wooten MD - Last Filed: 12/31/21 06:26> Extrem Other: slight bilateral edema <Dieudonne Wooten MD - Last Filed: 12/31/21 06:26> Psych Other: flat affect <Dieudonne Wooten MD - Last Filed: 12/31/21 06:26> Course Reevaluation(s) Reevaluation #1: physician observation started at 4am, patient needs time to see if his evaluation by crisis indicates his need for in patient admission as he is not eating and losing weight. Currently he is cachectic, non focal neuro. lungs clear, CV RRR. <Dieudonne Wooten MD - Last Filed: 12/31/21 06:26> Time: 04:07 <Dieudonne Wooten MD - Last Filed: 12/31/21 06:26> Reevaluation #2: Patient was evaluated by Leyla from the behavioral health team, patient is a Section 12 geriatric inpatient bed search. Patient is on a Section 12 for confusion, forgetfulness, increased depression/anxiety, auditory and visual hallucinations. Will continue to monitor. Physician observation continued at this time. <ITA Bustos - Last Filed: 01/01/22 02:46> Time: 02:46 <ITA Bustos - Last Filed: 01/01/22 02:46> Medical Decision Making Lab Data Result diagrams: : 12/30/21 22:53 12/30/21 22:53 <Dieudonne Wooten MD - Last Filed: 12/31/21 06:26> Labs: Lab Results 12/30/21 12/30/21 12/30/21 Range/Units 22:53 22:53 23:59 WBC 4.5 L (4.8-10.8) X10*3/uL RBC 4.01 L (4.60-5.80) X10*6/uL Hgb 12.8 L (14.0-18.0) g/dl Hct 38.9 L (42.0-52.0) % MCV 97.0 (80.0-98.0) fL MCH 31.9 (27.0-33.0) pg MCHC 32.9 (31.0-36.0) g/dl RDW 13.2 (11.0-16.0) % Plt Count 146 L (160-400) X10*3/uL MPV 9.5 (9.4-12.4) fL Immature Gran % (Auto) 0.2 (0.0-0.4) % Neut % (Auto) 75.1 H (45-73) % Lymph % (Auto) 17.1 L (20-40) % Island % (Auto) 6.7 (2-11) % Eos % (Auto) 0.7 (0-4) % Baso % (Auto) 0.2 (0-2) % Lymph # (Auto) 0.8 L (1.2-4.9) X10*3/uL Island # (Auto) 0.3 (0.1-1.2) X10*3/uL Eos # (Auto) 0.0 (0.0-0.4) X10*3/uL Baso # (Auto) 0.0 (0.0-0.2) X10*3/uL Abs Immat Gran (auto) 0.01 (0.00-0.03) X10*3/uL Absolute Neuts (auto) 3.4 (2.0-8.3) x10*3/uL Absolute Nucleated RBC 0.000 (0.0-0.012) X10*3/uL Nucleated RBC % (auto) 0.0 (0.0-0.2) /100WBC Sodium 142 (135-145) mmol/L Potassium 4.2 (3.3-5.1) mmol/L Chloride 99 (96-108) mmol/L Carbon Dioxide 34 H (22-29) mmol/L Anion Gap 13 (12-20) BUN 26 H (9-16) mg/dL Creatinine 0.94 (0.5-1.4) mg/dL Estim Creat Clear Calc 54.7 Estimated GFR > 60 Random Glucose 158 H D (60-115) mg/dL Calcium 9.4 (8.4-10.2) mg/dL Total Bilirubin 0.5 (0.0-1.0) mg/dL AST 30 D (5-37) U/L ALT 37 (0-40) U/L Alkaline Phosphatase 61 (39-117) U/L Total Protein 6.8 (6.5-8.0) g/dL Albumin 4.1 (3.5-5.0) g/dL Urine Color YELLOW Urine Appearance CLEAR Urine pH 6.0 (5.0-8.0) Ur Specific [place] 1.020 (1.005-1.025) Urine Protein NEG (NEG-TRACE) MG/DL Urine Glucose (UA) NEG (NEG) MG/DL Urine Ketones 5 (NEG) MG/DL Urine Blood NEG (NEG) Urine Nitrite NEG (NEG) Ur Leukocyte Esterase NEG (NEG) <Dieudonne Wooten MD - Last Filed: 12/31/21 06:26> Lab Results 12/30/21 12/30/21 12/30/21 Range/Units 22:53 22:53 23:59 WBC 4.5 L (4.8-10.8) X10*3/uL RBC 4.01 L (4.60-5.80) X10*6/uL Hgb 12.8 L (14.0-18.0) g/dl Hct 38.9 L (42.0-52.0) % MCV 97.0 (80.0-98.0) fL MCH 31.9 (27.0-33.0) pg MCHC 32.9 (31.0-36.0) g/dl RDW 13.2 (11.0-16.0) % Plt Count 146 L (160-400) X10*3/uL MPV 9.5 (9.4-12.4) fL Immature Gran % (Auto) 0.2 (0.0-0.4) % Neut % (Auto) 75.1 H (45-73) % Lymph % (Auto) 17.1 L (20-40) % Island % (Auto) 6.7 (2-11) % Eos % (Auto) 0.7 (0-4) % Baso % (Auto) 0.2 (0-2) % Lymph # (Auto) 0.8 L (1.2-4.9) X10*3/uL Island # (Auto) 0.3 (0.1-1.2) X10*3/uL Eos # (Auto) 0.0 (0.0-0.4) X10*3/uL Baso # (Auto) 0.0 (0.0-0.2) X10*3/uL Abs Immat Gran (auto) 0.01 (0.00-0.03) X10*3/uL Absolute Neuts (auto) 3.4 (2.0-8.3) x10*3/uL Absolute Nucleated RBC 0.000 (0.0-0.012) X10*3/uL Nucleated RBC % (auto) 0.0 (0.0-0.2) /100WBC Sodium 142 (135-145) mmol/L Potassium 4.2 (3.3-5.1) mmol/L Chloride 99 (96-108) mmol/L Carbon Dioxide 34 H (22-29) mmol/L Anion Gap 13 (12-20) BUN 26 H (9-16) mg/dL Creatinine 0.94 (0.5-1.4) mg/dL Estim Creat Clear Calc 54.7 Estimated GFR > 60 Random Glucose 158 H D (60-115) mg/dL Calcium 9.4 (8.4-10.2) mg/dL Total Bilirubin 0.5 (0.0-1.0) mg/dL AST 30 D (5-37) U/L ALT 37 (0-40) U/L Alkaline Phosphatase 61 (39-117) U/L Total Protein 6.8 (6.5-8.0) g/dL Albumin 4.1 (3.5-5.0) g/dL Urine Color YELLOW Urine Appearance CLEAR Urine pH 6.0 (5.0-8.0) Ur Specific [place] 1.020 (1.005-1.025) Urine Protein NEG (NEG-TRACE) MG/DL Urine Glucose (UA) NEG (NEG) MG/DL Urine Ketones 5 (NEG) MG/DL Urine Blood NEG (NEG) Urine Nitrite NEG (NEG) Ur Leukocyte Esterase NEG (NEG) <ITA Bustos - Last Filed: 01/01/22 02:46> Discharge Plan Discharge Clinical Impression: MDD (major depressive disorder), recurrent episode, moderate <Dieudonne Wooten MD - Last Filed: 12/31/21 06:26> Patient Disposition: Still a Patient <Dieudonne Wooten MD - Last Filed: 12/31/21 06:26> Prescriptions: No Action acetaminophen 650 mg Tablet Extended Release 650 mg PO Q8H PRN (Reason: Pain) cyanocobalamin (vitamin B-12) 1,000 mcg Tablet 1,000 mcg PO DAILY 30 Days Qty: 30 0RF levothyroxine 75 mcg tablet 75 mcg PO DAILY 30 Days Qty: 30 0RF simvastatin 20 mg tablet 20 mg PO BEDTIME 30 Days Qty: 30 0RF calcium polycarbophil [FiberCon] 625 mg Tablet 1,250 mg PO DAILY 30 Days Qty: 60 0RF PreserVision AREDS [id number],[id number] Capsule 2 cap PO DAILY 30 Days Qty: 60 0RF cholecalciferol (vitamin D3) 50 mcg (2,000 unit) Tablet 50 mcg PO DAILY 30 Days Qty: 30 0RF donepezil 10 mg tablet 1 tab PO DAILY mirtazapine 15 mg tablet 1 tab PO BEDTIME aripiprazole 10 mg tablet 1 tab PO DAILY ferrous sulfate 325 mg (65 mg iron) Tablet 325 mg PO DAILY sertraline 100 mg tablet 100 mg PO BEDTIME <Dieudonne Wooten MD - Last Filed: 12/31/21 06:26>
[2021-12-30 22:46] VITALS: PULSE 51; RESP 14; O2SAT 98
[2021-12-30 22:59] LABS: MANUAL DIFF FLAG NO
[2021-12-30 23:01] LABS: Basophils Percent Auto 0.2 % (0-2); Eosinophils Percent Auto 0.7 % (0-4); Hematocrit 38.9 % (42.0-52.0); Hemoglobin 12.8 g/dl (14.0-18.0); Imm Gran Abs Auto 0.01 X10*3/uL (0.00-0.03); Imm Gran Pct Auto 0.2 % (0.0-0.4); Lymphocytes Absolute Auto 0.8 X10*3/uL (1.2-4.9); Lymphocytes Percent Auto 17.1 % (20-40); Mean Corpuscular HGB Conc 32.9 g/dl (31.0-36.0); Mean Corpuscular Hemoglobin 31.9 pg (27.0-33.0); Mean Platelet Volume 9.5 fL (9.4-12.4); Monocytes Absolute Auto 0.3 X10*3/uL (0.1-1.2); Monocytes Percent Auto 6.7 % (2-11); Neutrophils Absolute Auto 3.4 x10*3/uL (2.0-8.3); Neutrophils Percent Auto 75.1 % (45-73); Platelet Count 146 X10*3/uL (160-400); Red Blood Count 4.01 X10*6/uL (4.60-5.80); Red Cell Distribution Width 13.2 % (11.0-16.0); White Blood Count 4.5 X10*3/uL (4.8-10.8)
[2021-12-30] MEDS: 0.9 % Sodium Chloride 500 ML 250 ML IVCONT (23:01)
--- NOTE | 2021-12-30 23:14 | PC.NURSE ---
and dtr at bedside. pt is in no distress. pt has no c/o cp, dizziness, SOB, or dysuria. pt given jello per request
[2021-12-30 23:19] LABS: Alanine Aminotransferase 37 U/L (0-40); Albumin Level 4.1 g/dL (3.5-5.0); Alkaline Phosphatase 61 U/L (39-117); Anion Gap 13 (12-20); Aspartate Amino Transferase 30 U/L (5-37); Bilirubin Total 0.5 mg/dL (0.0-1.0); Blood Urea Nitrogen 26 mg/dL (9-16); Calcium 9.4 mg/dL (8.4-10.2); Carbon Dioxide 34 mmol/L (22-29); Chloride 99 mmol/L (96-108); Creatinine Clr Calc Pharmacy 54.7; Estimated Glomerular Filt Rate > 60; Glucose Random 158 mg/dL (60-115); Potassium 4.2 mmol/L (3.3-5.1); Sodium 142 mmol/L (135-145); Total Protein 6.8 g/dL (6.5-8.0)
[2021-12-31] VITALS (8 sets, daily range): BP systolic 124–154; BP diastolic 49–69; PULSE 47–60; RESP 14–18; TEMP 36.7–37; O2SAT 94–98
[2021-12-31 00:04] LABS: Appearance Urine CLEAR; Color Urine YELLOW; Glucose Urine UA NEG (NEG); Leukocyte Esterase Urine NEG (NEG); Nitrite Urine NEG (NEG); Urine Blood NEG (NEG); Urine Ketones 5 MG/DL (NEG); Urine Protein NEG (NEG-TRACE)
--- NOTE | 2021-12-31 02:25 | PC.NURSE ---
smart sheet completed [id number]
--- NOTE | 2021-12-31 03:20 | PC.NURSE ---
pt attempting to get OOB. Redirected/reassured by this RN. pt again tried to get up, redirected, reminded it was 0330, and pt is resting in bed at this time
--- NOTE | 2021-12-31 08:21 | PC.NURSE ---
PT AMB OOB TO BR, WITH ONE ASSIST, EASILY REORIENTED BACK TO BED
--- NOTE | 2021-12-31 10:17 | PHA.MEDREC ---
Pharmacy Consult ? Medication Reconciliation Pharmacy has completed the medication reconciliation. Spoke with patient Tato to confirmed medications. Patient no longer taking duloxetine. Lurdes Blackwell, PharmD
--- NOTE | 2021-12-31 11:47 | PC.NURSE ---
pt woken up by this rn, pt seems to oriented to time but states he is at his uncle's house, denies pain states he is tired and like to sleep a lot, offered food but does not want anything at this time, pt reports that he is in the hospital because he has not been eating much, denies si/hi pt awaiting bhn evaluation
--- NOTE | 2021-12-31 16:01 | PC.NURSE ---
PATIENT WAS GIVEN A BED BATH BY THIS PCT .
--- NOTE | 2021-12-31 17:56 | PC.NURSE ---
pt a&ox2, pt reports that he is feeling fine and is unsure as to why he is here. family reports that he still seems confused from baseline, forgot what he ate for lunch. med rec complete, provider notified. Coy is planning on evaluating pt tonight on 3rd shift.
--- NOTE | 2021-12-31 20:12 | PC.NURSE ---
patient ate 100 % of meals ,drank 480 ml fluids .
[2022-01-01] MEDS: Sertraline HCL 100 MG TABLET PO ×2 (01:54→20:17)
[2022-01-01] MEDS: Mirtazapine 15 MG TABLET PO ×2 (01:54→20:17)
--- NOTE | 2022-01-01 01:57 | PC.NURSE ---
[facility] visited pt for consult, medicated per provider order.
[2022-01-01 07:13] VITALS: BP 147/75; PULSE 55; RESP 12; TEMP 37; O2SAT 96
[2022-01-01 09:23] VITALS: BP 154/70; PULSE 53; RESP 16; O2SAT 97
[2022-01-01] MEDS: Cyanocobalamin (Vitamin B-12) 1,000 MCG TABLET 1000 MCG PO (09:24)
[2022-01-01] MEDS: Donepezil HCl 10 MG TABLET PO (09:24)
[2022-01-01] MEDS: Multivitamin TABLET 1 TAB PO (09:24)
[2022-01-01] MEDS: Levothyroxine Sodium 75 MCG TABLET PO (09:24)
[2022-01-01] MEDS: ARIPiprazole 10 MG TABLET PO (09:24)
[2022-01-01] MEDS: Ferrous Sulfate 324 MG TABLET.DR PO (09:24)
[2022-01-01] MEDS: Cholecalciferol (Vitamin D3) 25 MCG TABLET 50 MCG PO (09:25)
[2022-01-01 12:22] VITALS: BP 136/62; PULSE 49; RESP 12; O2SAT 95
[2022-01-01 13:17] LABS: Folate > 20.0 ng/mL (> or = 4.0); Vitamin B12 1416 pg/mL (200-900)
[2022-01-01 13:48] LABS: Free T4 (Free Thyroxine) 1.07 ng/dL (0.71-1.85)
--- NOTE | 2022-01-01 14:12 | ECG_ITS ---
Test Reason : medical clearance Blood Pressure : / mmHG Vent. Rate : 071 BPM Atrial Rate : 071 BPM P-R Int : 144 ms QRS Dur : 116 ms QT Int : 432 ms P-R-T Axes : 088 089 063 degrees QTc Int : 469 ms Sinus rhythm with marked sinus arrhythmia Incomplete right bundle branch block Borderline ECG When compared with ECG of 04-APR-2021 16:32, No significant change was found Referred By: Shelley Meneses Electronically Signed By:Kaushik Garcia
[2022-01-01 14:35] VITALS: BP 135/63; PULSE 65; RESP 14; TEMP 36.7; O2SAT 98
[2022-01-01 14:51] LABS: COVID-19 Test Negative (Negative); IDNOW Serial# 9DD0AD1C
[2022-01-01 17:16] VITALS: BP 96/56; PULSE 86; RESP 16; TEMP 36.2; O2SAT 95
--- NOTE | 2022-01-01 18:21 | PC.NURSE ---
Pt. is a 76 year old male-Guyanese speaking. - Lenora Gomez. He was brought to the ED via private vehicle with his daughter. He was found wandering in [place], [place]-alone, confused and anxious. Pt. arrived on the unit in a w/c at [address] [facility]. A&Ox4. He was given dinner while this RN was completing his admission paperwork with him. Pt. was shown around the unit and brought to his bedroom afterwards. Pt. states that he has all of the supplies that he currently needs. Pt. denies any additional questions. This RN observed pt. being steady on his feet while transferring from the w/c to his bed. Pt. reports being steady as well. Pt. doesn't make eye contact throughout assessment. Pt. appears anxious and worried. When asked by this RN if she could do anything for him, he stated I wish I were home . This RN offered pt. comfort. Pt. currently resting in bed. All paperwork signed and in chart. PCP will be notified of admission during regular business hours.
[2022-01-01 20:10] VITALS: BP 110/71; PULSE 90; RESP 18; TEMP 36.1; O2SAT 98
[2022-01-01] MEDS: Atorvastatin Calcium 10 MG TABLET PO (20:17)
[2022-01-02] MEDS: Levothyroxine Sodium 75 MCG TABLET PO (06:29)
[2022-01-02 07:00] VITALS: BMI 16.9
[2022-01-02 07:30] VITALS: BP 152/71; PULSE 57; RESP 14; TEMP 36.7; O2SAT 98
[2022-01-02 08:23] LABS: Alanine Aminotransferase 33 U/L (0-40); Albumin Level 3.7 g/dL (3.5-5.0); Alkaline Phosphatase 54 U/L (39-117); Anion Gap 10 (12-20); Aspartate Amino Transferase 29 U/L (5-37); Bilirubin Total 0.3 mg/dL (0.0-1.0); Blood Urea Nitrogen 24 mg/dL (9-16); Calcium 9.1 mg/dL (8.4-10.2); Carbon Dioxide 32 mmol/L (22-29); Chloride 102 mmol/L (96-108); Cholesterol 151 mg/dL; Creatinine Clr Calc Pharmacy 63.5; Estimated Glomerular Filt Rate > 60; Glucose Fasting 82 mg/dL (60-99); HDL Cholesterol 46 mg/dL; LDL Cholesterol Calculated 88 mg/dl; Potassium 3.9 mmol/L (3.3-5.1); Sodium 140 mmol/L (135-145); Total Protein 6.1 g/dL (6.5-8.0); Triglycerides 85 mg/dL
[2022-01-02] MEDS: ARIPiprazole 10 MG TABLET PO (08:29)
[2022-01-02] MEDS: Cyanocobalamin (Vitamin B-12) 1,000 MCG TABLET 1000 MCG PO (08:29)
[2022-01-02] MEDS: Donepezil HCl 10 MG TABLET PO (08:30)
[2022-01-02] MEDS: Cholecalciferol (Vitamin D3) 25 MCG TABLET 50 MCG PO (08:30)
[2022-01-02] MEDS: Ferrous Sulfate 324 MG TABLET.DR PO (08:30)
[2022-01-02] MEDS: Multivitamin TABLET 1 TAB PO (08:30)
[2022-01-02 09:33] VITALS: BMI 17.3
--- NOTE | 2022-01-02 09:38 | MHC.CLN ---
PT IS SEVERELY MALNOURISHED PT WITH SEVERELY DEPLETED SUBCUTANEOUS FAT AND MUSCLE MASS, WITH 14% SIGNIFICANT WT LOSS X 9 MONTHS AND CHRONIC POOR PO INTAKE PER FAMILY. BMI 17.3 MD REPORTED CACHETIC APPEARANCE PT PREVIOUS WT HX FOLLOWS: 57.9KG (12/30/21) 57.1KG (12/04/21) 67KG (04/04/21) TRIGGERS FOR 14% SIGNIFICANT WT LOSS X 9 MONTHS DIET RX: REGULAR-APPROPRIATE PT ATE 100% 12/31 AND MD NOTED SEEING PT EAT 01/01. RECOMMEND ADDING ENSURE ENLIVE BID TO INCREASE KCALS AND PROMOTE WT GAIN SUPP TO PROVIDE 700KCALS, 40G PROTEIN MONITOR PO INTAKE CLOSELY SEE FULL CLINICAL NUTRITION ASSESSMENT
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
[2022-01-02 18:00] VITALS: BP 114/53; PULSE 75; RESP 17; TEMP 36.6; O2SAT 94
[2022-01-02] MEDS: Mirtazapine 15 MG TABLET PO (21:06)
[2022-01-02] MEDS: Atorvastatin Calcium 10 MG TABLET PO (21:06)
[2022-01-02] MEDS: Sertraline HCL 100 MG TABLET PO (21:06)
[2022-01-03 06:00] VITALS: BP 141/71; PULSE 62; RESP 17; TEMP 36.8; O2SAT 96
[2022-01-03] MEDS: Levothyroxine Sodium 75 MCG TABLET PO (06:24)
[2022-01-03] MEDS: Donepezil HCl 10 MG TABLET PO (09:01)
[2022-01-03] MEDS: ARIPiprazole 10 MG TABLET PO (09:01)
[2022-01-03] MEDS: Cyanocobalamin (Vitamin B-12) 1,000 MCG TABLET 1000 MCG PO (09:01)
[2022-01-03] MEDS: Ferrous Sulfate 324 MG TABLET.DR PO (09:01)
[2022-01-03] MEDS: Multivitamin TABLET 1 TAB PO (09:02)
[2022-01-03] MEDS: Cholecalciferol (Vitamin D3) 25 MCG TABLET 50 MCG PO (09:02)
--- NOTE | 2022-01-03 13:23 | HO.PSYCHPN ---
Subjective Subjective Date of Service: 01/03/22 Reason For Visit: Change mental status Subjective Notes: Conditional Voluntary Interim History: the nursing staff reported the patient has been isolative in his room most of the time. He went late to eat his meals in the kitchen. On interview the patient looks pleasantly confused and easily redirectable. He is unable to recall that we met each other yesterday. Mental Status Exam Mental Status Exam Patient Appearance: Well Grooomed Patient Orientation: Person and Situation Level of Consciousness: Appropriate Patient Behavior: Suspicious Mood Description: Withdrawn Affect Description: Constricted Patient Cognition Impaired: Yes Ability to Follow Directions: Fair Speech Pattern: Clear Hallucinations: None Delusions: Not Present Thought Process: Distracted and Linear Thought Content: positive for Poverty of Content Judgement: Fair Diagnostics Vital Signs (24Hr): Vital Signs - 24 hr 01/02/22 18:00 01/03/22 06:00 Temperature 97.8 F 98.2 F Pulse Rate 75 62 Respiratory Rate 17 17 Blood Pressure 114/53 L 141/71 H Pulse Oximetry 94 96 Oxygen Delivery Method Room Air Room Air BMI result Body Mass Index 17.3 Labs Results: 12/30/21 22:53 01/02/22 08:00 Labs: Laboratory Results - last 48 hr 01/01/22 01/01/22 01/02/22 12:17 14:18 08:00 Sodium 140 Potassium 3.9 Chloride 102 Carbon Dioxide 32 H Anion Gap 10 L BUN 24 H Creatinine 0.81 Estim Creat Clear Calc 63.5 Estimated GFR > 60 Fasting Glucose 82 Calcium 9.1 Total Bilirubin 0.3 AST 29 ALT 33 Alkaline Phosphatase 54 Total Protein 6.1 L Albumin 3.7 Triglycerides 85 Cholesterol 151 LDL Cholesterol, Calc 88 HDL Cholesterol 46 Free T4 1.07 COVID-19 (BEV) Negative COVID-19 Clin Com See Note Medications Medications Current Medications Acetaminophen (Acetaminophen 325 Mg Tablet) 650 mg PO Q8H PRN PRN Reason: Pain Acetaminophen (Acetaminophen 325 Mg Tablet) 650 mg PO Q6H PRN PRN Reason: Headache/Pain Mild Scale (1-3) Al Hydroxide/Mg Hydroxide (Magnesium Hydrox/Alum Hydrox 30 Ml Oral.Susp) 30 ml PO Q6H PRN PRN Reason: Heartburn/Nausea Aripiprazole (Aripiprazole 10 Mg Tablet) 10 mg PO DAILY [facility] Last Admin: 01/03/22 09:01 Dose: 10 mg Atorvastatin Calcium (Atorvastatin Calcium 10 Mg Tablet) 10 mg PO BEDTIME [facility] Last Admin: 01/02/22 21:06 Dose: 10 mg Calcium Polycarbophil (Calcium Polycarbophil Tablet) 2 tab PO DAILY [facility] Last Admin: 01/03/22 09:08 Dose: Not Given Cyanocobalamin (Cyanocobalamin (Vitamin B-12) 1,000 Mcg Tablet) 1,000 mcg PO DAILY [facility] Last Admin: 01/03/22 09:01 Dose: 1,000 mcg Donepezil HCl (Donepezil Hcl 10 Mg Tablet) 10 mg PO DAILY [facility] Last Admin: 01/03/22 09:01 Dose: 10 mg Ferrous Sulfate (Ferrous Sulfate 324 Mg Tablet.Dr) 324 mg PO DAILY [facility] Last Admin: 01/03/22 09:01 Dose: 324 mg Hydroxyzine HCl (Hydroxyzine Hcl 25 Mg Tablet) 25 mg PO BEDTIME PRN PRN Reason: Anxiety Levothyroxine Sodium (Levothyroxine Sodium 75 Mcg Tablet) 75 mcg PO DAILY@0630 [facility] Last Admin: 01/03/22 06:24 Dose: 75 mcg Magnesium Hydroxide (Milk Of Magnesia 30 Ml Oral.Susp) 30 ml PO DAILY PRN PRN Reason: Constipation Mirtazapine (Mirtazapine 15 Mg Tablet) 15 mg PO BEDTIME [facility] Last Admin: 01/02/22 21:06 Dose: 15 mg Multivitamins/Vitamin C (Multivitamin Tablet) 1 tab PO DAILY [facility] Last Admin: 01/03/22 09:02 Dose: 1 tab Pharmacy Consult (Consult Rx Perform Med Rec) 1 each MISCELLANE ONCE PRN PRN Reason: Consult order Sertraline HCl (Sertraline Hcl 100 Mg Tablet) 100 mg PO BEDTIME [facility] Last Admin: 01/02/22 21:06 Dose: 100 mg Trazodone HCl (Trazodone Hcl 50 Mg Tablet) 50 mg PO BEDTIME PRN PRN Reason: Insomnia Vitamin D (Cholecalciferol (Vitamin D3) 25 Mcg Tablet) 50 mcg PO DAILY [facility] Last Admin: 01/03/22 09:02 Dose: 50 mcg Allergies Allergies Allergy/AdvReac Type Severity Reaction Status Date / Time No Known Allergies Allergy Verified 12/04/21 10:54 Assessment & Plan Assessment & Plan (1) Cognitive impairment: Status: Acute Code(s): R41.89 - Other symptoms and signs involving cognitive functions and awareness (2) MDD (major depressive disorder), recurrent episode, moderate: Status: Acute Code(s): F33.1 - Major depressive disorder, recurrent, moderate Plan the patient is an elderly male with a 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 Plan 1. Gather collateral information. 2. Continue medical workout. 3. Continue with Zoloft Abilify and other neuroleptics. Increasej Zoloft up to 150 mg p.o. daily due to exacerbation of depression. 4. Contact Dr. Galvez for further information. I spent __20____ minutes with the patient and/or on the patient floor today, greater than?50% of which was spent counseling/coordinating care. Reason for contiued inpatient stay Substantial Risk for: inability to function, rapid decompensation and med/psych decompensation
--- NOTE | 2022-01-03 13:33 | MHC.CLN ---
F/U STAFF REPORTS THAT PATIENT ATE 100% AT BREAKFAST. PATIENT STATED THAT DRINKS ENSURE. DIET=REGULAR, ENSURE BID. CONTINUE CURRENT DIET AND SUPPLEMENT.
[2022-01-03 18:00] VITALS: BP 125/57; PULSE 72; RESP 16; TEMP 36.6; O2SAT 97
[2022-01-03] MEDS: Atorvastatin Calcium 10 MG TABLET PO (20:40)
[2022-01-03] MEDS: Mirtazapine 15 MG TABLET PO (20:41)
[2022-01-03] MEDS: Sertraline HCL 50 MG TABLET 150 MG PO (20:41)
[2022-01-04] MEDS: Levothyroxine Sodium 75 MCG TABLET PO (06:36)
[2022-01-04 08:00] VITALS: BP 138/72; PULSE 82; RESP 16; TEMP 36; O2SAT 94
[2022-01-04] MEDS: Ferrous Sulfate 324 MG TABLET.DR PO (08:00)
[2022-01-04] MEDS: Multivitamin TABLET 1 TAB PO (08:00)
[2022-01-04] MEDS: Donepezil HCl 10 MG TABLET PO (08:00)
[2022-01-04] MEDS: Cholecalciferol (Vitamin D3) 25 MCG TABLET 50 MCG PO (08:00)
[2022-01-04] MEDS: ARIPiprazole 10 MG TABLET PO (08:00)
[2022-01-04] MEDS: calcium polycarbophiL TABLET 2 TAB PO (08:01)
[2022-01-04] MEDS: Cyanocobalamin (Vitamin B-12) 1,000 MCG TABLET 1000 MCG PO (08:01)
[2022-01-04 18:00] VITALS: BP 114/56; PULSE 90; RESP 16; TEMP 36.6; O2SAT 98
--- NOTE | 2022-01-04 18:05 | HO.PSYCHPN ---
Subjective Subjective Date of Service: 01/04/22 Reason For Visit: Change mental status Interim History: met with patient in discussed with Nursing. Has been isolative with poor self-care. With investment underwriter he does present with cognitive impairment. Patient has noticed feeling more confused himself. For example when asked where he was, he stated he was in [facility]. Then believed it was 05/08/2022. Did however feels safe here and responded well to re orientation. Denied feeling depressed. Denies feeling paranoid. Did brighten when talking about family and his of 50 years. Medication Compliance: Yes Side effects from medications: No Attending Groups: No Review of Systems Acute medical concerns: No Review of Systems Review of Systems Unremarkable Mental Status Exam Mental Status Exam Narrative: pleasant. Engaged. Poor self-care. Does have some difficulty with orientation and memory of recent events. Denied depression SI. No evidence of agitation or psychosis. Insight and judgment limited by cognition Diagnostics Vital Signs (24Hr): Vital Signs - 24 hr 01/04/22 08:00 Temperature 96.8 F Pulse Rate 82 Respiratory Rate 16 Blood Pressure 138/72 Pulse Oximetry 94 Oxygen Delivery Method Room Air BMI result Body Mass Index 17.3 Labs Results: 12/30/21 22:53 01/02/22 08:00 Medications Medications Current Medications Acetaminophen (Acetaminophen 325 Mg Tablet) 650 mg PO Q8H PRN PRN Reason: Pain Acetaminophen (Acetaminophen 325 Mg Tablet) 650 mg PO Q6H PRN PRN Reason: Headache/Pain Mild Scale (1-3) Al Hydroxide/Mg Hydroxide (Magnesium Hydrox/Alum Hydrox 30 Ml Oral.Susp) 30 ml PO Q6H PRN PRN Reason: Heartburn/Nausea Aripiprazole (Aripiprazole 10 Mg Tablet) 10 mg PO DAILY [facility] Last Admin: 01/04/22 08:00 Dose: 10 mg Atorvastatin Calcium (Atorvastatin Calcium 10 Mg Tablet) 10 mg PO BEDTIME [facility] Last Admin: 01/03/22 20:40 Dose: 10 mg Calcium Polycarbophil (Calcium Polycarbophil Tablet) 2 tab PO DAILY [facility] Last Admin: 01/04/22 08:01 Dose: 2 tab Cyanocobalamin (Cyanocobalamin (Vitamin B-12) 1,000 Mcg Tablet) 1,000 mcg PO DAILY [facility] Last Admin: 01/04/22 08:01 Dose: 1,000 mcg Donepezil HCl (Donepezil Hcl 10 Mg Tablet) 10 mg PO DAILY [facility] Last Admin: 01/04/22 08:00 Dose: 10 mg Ferrous Sulfate (Ferrous Sulfate 324 Mg Tablet.Dr) 324 mg PO DAILY [facility] Last Admin: 01/04/22 08:00 Dose: 324 mg Hydroxyzine HCl (Hydroxyzine Hcl 25 Mg Tablet) 25 mg PO BEDTIME PRN PRN Reason: Anxiety Levothyroxine Sodium (Levothyroxine Sodium 75 Mcg Tablet) 75 mcg PO DAILY@0630 [facility] Last Admin: 01/04/22 06:36 Dose: 75 mcg Magnesium Hydroxide (Milk Of Magnesia 30 Ml Oral.Susp) 30 ml PO DAILY PRN PRN Reason: Constipation Mirtazapine (Mirtazapine 15 Mg Tablet) 15 mg PO BEDTIME [facility] Last Admin: 01/03/22 20:41 Dose: 15 mg Multivitamins/Vitamin C (Multivitamin Tablet) 1 tab PO DAILY [facility] Last Admin: 01/04/22 08:00 Dose: 1 tab Pharmacy Consult (Consult Rx Perform Med Rec) 1 each MISCELLANE ONCE PRN PRN Reason: Consult order Sertraline HCl (Sertraline Hcl 50 Mg Tablet) 150 mg PO BEDTIME [facility] Last Admin: 01/03/22 20:41 Dose: 150 mg Trazodone HCl (Trazodone Hcl 50 Mg Tablet) 50 mg PO BEDTIME PRN PRN Reason: Insomnia Vitamin D (Cholecalciferol (Vitamin D3) 25 Mcg Tablet) 50 mcg PO DAILY [facility] Last Admin: 01/04/22 08:00 Dose: 50 mcg Allergies Allergies Allergy/AdvReac Type Severity Reaction Status Date / Time No Known Allergies Allergy Verified 12/04/21 10:54 Assessment & Plan Assessment & Plan (1) Cognitive impairment: Status: Acute Code(s): R41.89 - Other symptoms and signs involving cognitive functions and awareness (2) MDD (major depressive disorder), recurrent episode, moderate: Status: Acute Code(s): F33.1 - Major depressive disorder, recurrent, moderate Plan the patient is an elderly male with a 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 Plan 1. Gather collateral information. 2. Continue medical workout. 3. Continue with Zoloft Abilify and other neuroleptics. Increasej Zoloft up to 150 mg p.o. daily due to exacerbation of depression. 4. Contact Dr. Galvez for further information. 01/04/2022: No changes to team's primary treatment plan I spent minutes with the patient and/or on the patient floor today, greater than?50% of which was spent counseling/coordinating care. Reason for contiued inpatient stay Substantial Risk for: inability to function
[2022-01-04] MEDS: Atorvastatin Calcium 10 MG TABLET PO (21:37)
[2022-01-04] MEDS: Mirtazapine 15 MG TABLET PO (21:37)
[2022-01-04] MEDS: Sertraline HCL 50 MG TABLET 150 MG PO (21:37)
[2022-01-05] MEDS: Levothyroxine Sodium 75 MCG TABLET PO (06:21)
[2022-01-05 07:30] VITALS: BP 131/60; PULSE 54; RESP 14; TEMP 36.6; O2SAT 97
[2022-01-05] MEDS: Donepezil HCl 10 MG TABLET PO (08:27)
[2022-01-05] MEDS: ARIPiprazole 10 MG TABLET PO (08:27)
[2022-01-05] MEDS: Ferrous Sulfate 324 MG TABLET.DR PO (08:27)
[2022-01-05] MEDS: Multivitamin TABLET 1 TAB PO (08:28)
[2022-01-05] MEDS: Cyanocobalamin (Vitamin B-12) 1,000 MCG TABLET 1000 MCG PO (08:28)
[2022-01-05] MEDS: Cholecalciferol (Vitamin D3) 25 MCG TABLET 50 MCG PO (08:28)
[2022-01-05] MEDS: calcium polycarbophiL TABLET 2 TAB PO (08:35)
--- NOTE | 2022-01-05 11:11 | HO.PSYCHPN ---
Subjective Subjective Date of Service: 01/05/22 Reason For Visit: Change mental status Interim History: Patient seen and discussed with team. Patient evaluated today and upon interview he reports he is doing pretty good, sleep is okay. His daughter and visited for father's day. Pt says he is having vivid dreams. Says he sometimes feels overmedicated, however on several vitamins/ supplements. Pt reports his depression could be better. Feels anxious, I worry about everything. In the milieu, patient is safe but isolative in behavior. Says he feels safe. Medication Compliance: Yes Side effects from medications: No Attending Groups: Intermittent Review of Systems Acute medical concerns: No Medical Review of Systems: unchanged Mental Status Exam Mental Status Exam Narrative: Patient Appearance: Well Grooomed Patient Orientation: Person and Situation Level of Consciousness: Appropriate Patient Behavior: Suspicious Mood Description: Withdrawn Affect Description: Constricted Patient Cognition Impaired: Yes Ability to Follow Directions: Fair Speech Pattern: Clear Hallucinations: None Delusions: Not Present Thought Process: Distracted and Linear Thought Content: positive for Poverty of Content Judgment: Fair Diagnostics Vital Signs (24Hr): Vital Signs - 24 hr 01/04/22 18:00 01/05/22 07:30 Temperature 97.9 F 97.8 F Pulse Rate 90 54 Respiratory Rate 16 14 Blood Pressure 114/56 L 131/60 Pulse Oximetry 98 97 Oxygen Delivery Method Room Air Room Air BMI result Body Mass Index 17.3 Labs Results: 12/30/21 22:53 01/02/22 08:00 Medications Medications Current Medications Acetaminophen (Acetaminophen 325 Mg Tablet) 650 mg PO Q8H PRN PRN Reason: Pain Acetaminophen (Acetaminophen 325 Mg Tablet) 650 mg PO Q6H PRN PRN Reason: Headache/Pain Mild Scale (1-3) Al Hydroxide/Mg Hydroxide (Magnesium Hydrox/Alum Hydrox 30 Ml Oral.Susp) 30 ml PO Q6H PRN PRN Reason: Heartburn/Nausea Aripiprazole (Aripiprazole 10 Mg Tablet) 10 mg PO DAILY [facility] Last Admin: 01/05/22 08:27 Dose: 10 mg Atorvastatin Calcium (Atorvastatin Calcium 10 Mg Tablet) 10 mg PO BEDTIME [facility] Last Admin: 01/04/22 21:37 Dose: 10 mg Calcium Polycarbophil (Calcium Polycarbophil Tablet) 2 tab PO DAILY [facility] Last Admin: 01/05/22 08:35 Dose: 2 tab Cyanocobalamin (Cyanocobalamin (Vitamin B-12) 1,000 Mcg Tablet) 1,000 mcg PO DAILY [facility] Last Admin: 01/05/22 08:28 Dose: 1,000 mcg Donepezil HCl (Donepezil Hcl 10 Mg Tablet) 10 mg PO DAILY [facility] Last Admin: 01/05/22 08:27 Dose: 10 mg Ferrous Sulfate (Ferrous Sulfate 324 Mg Tablet.Dr) 324 mg PO DAILY [facility] Last Admin: 01/05/22 08:27 Dose: 324 mg Hydroxyzine HCl (Hydroxyzine Hcl 25 Mg Tablet) 25 mg PO BEDTIME PRN PRN Reason: Anxiety Levothyroxine Sodium (Levothyroxine Sodium 75 Mcg Tablet) 75 mcg PO DAILY@0630 [facility] Last Admin: 01/05/22 06:21 Dose: 75 mcg Magnesium Hydroxide (Milk Of Magnesia 30 Ml Oral.Susp) 30 ml PO DAILY PRN PRN Reason: Constipation Mirtazapine (Mirtazapine 15 Mg Tablet) 15 mg PO BEDTIME [facility] Last Admin: 01/04/22 21:37 Dose: 15 mg Multivitamins/Vitamin C (Multivitamin Tablet) 1 tab PO DAILY [facility] Last Admin: 01/05/22 08:28 Dose: 1 tab Pharmacy Consult (Consult Rx Perform Med Rec) 1 each MISCELLANE ONCE PRN PRN Reason: Consult order Sertraline HCl (Sertraline Hcl 50 Mg Tablet) 150 mg PO BEDTIME [facility] Last Admin: 01/04/22 21:37 Dose: 150 mg Trazodone HCl (Trazodone Hcl 50 Mg Tablet) 50 mg PO BEDTIME PRN PRN Reason: Insomnia Vitamin D (Cholecalciferol (Vitamin D3) 25 Mcg Tablet) 50 mcg PO DAILY [facility] Last Admin: 01/05/22 08:28 Dose: 50 mcg Allergies Allergies Allergy/AdvReac Type Severity Reaction Status Date / Time No Known Allergies Allergy Verified 12/04/21 10:54 Assessment & Plan Assessment & Plan (1) Cognitive impairment: Status: Acute Code(s): R41.89 - Other symptoms and signs involving cognitive functions and awareness (2) MDD (major depressive disorder), recurrent episode, moderate: Status: Acute Code(s): F33.1 - Major depressive disorder, recurrent, moderate Plan the patient is an elderly male with a 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 Plan 1. Gather collateral information. 2. Continue medical workout. 3. Continue with Zoloft Abilify and other neuroleptics. Increasej Zoloft up to 150 mg p.o. daily due to exacerbation of depression. 4. Contact Dr. Galvez for further information. 01/04/2022: No changes to team's primary treatment plan 01/05/2022: D/C'd Vit D & B12 per pharmacy consult, as pt complains of being over medicated and on multiple vitamins. I spent minutes with the patient and/or on the patient floor today, greater than?50% of which was spent counseling/coordinating care. Patient educated on: medication risk/benefits Reason for contiued inpatient stay Substantial Risk for: inability to function, rapid decompensation and med/psych decompensation
[2022-01-05 18:52] LABS: Iron 28 mcg/dL (45-160); Percent Iron Saturation 12 % (15-50); Total Iron Binding Capacity 229 mcg/dL (228-428); Unsaturated Iron Binding 201 ug/dL
[2022-01-05 20:19] VITALS: BP 123/57; PULSE 70; RESP 17; TEMP 35.5; O2SAT 96
[2022-01-05] MEDS: Atorvastatin Calcium 10 MG TABLET PO (20:22)
[2022-01-05] MEDS: Sertraline HCL 50 MG TABLET 150 MG PO (20:22)
[2022-01-05] MEDS: Mirtazapine 15 MG TABLET PO (20:23)
[2022-01-06 06:00] VITALS: BP 179/79; PULSE 61; RESP 18; TEMP 36.9; O2SAT 95
[2022-01-06] MEDS: Levothyroxine Sodium 75 MCG TABLET PO (06:10)
[2022-01-06] MEDS: calcium polycarbophiL TABLET 2 TAB PO (08:53)
[2022-01-06] MEDS: ARIPiprazole 10 MG TABLET PO (08:53)
[2022-01-06] MEDS: Donepezil HCl 10 MG TABLET PO (08:53)
[2022-01-06] MEDS: Ferrous Sulfate 324 MG TABLET.DR PO (08:53)
[2022-01-06] MEDS: Multivitamin TABLET 1 TAB PO (08:53)
--- NOTE | 2022-01-06 10:55 | MHC.CLN ---
F/U NO NEW NUTRITION RELATED CONCERNS.
--- NOTE | 2022-01-06 16:30 | P.PNPSI_ITS ---
Subjective Subjective Date of Service: 01/06/22 Reason For Visit: Change mental status Subjective Notes: Conditional Voluntary Interim History: The nursing staff reported the patient has been on his room most of the time. He had a phone call with his and she reported that he was extremely confused. 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 The patient has worked for [employer] for more than 20 years and he is confused at times. Mental Status Exam Mental Status Exam Patient Appearance: Well Grooomed Patient Orientation: Person and Situation Level of Consciousness: Disoriented Patient Behavior: Cooperative Mood Description: Withdrawn Affect Description: Flat and Sad Patient Cognition Impaired: Yes Ability to Follow Directions: Fair Speech Pattern: Clear Hallucinations: Auditory Delusions: Paranoid Ideation Thought Process: Distracted and Slowed Thinking Thought Content: positive for [place] and positive for Poverty of Content Judgement: Poor Diagnostics Vital Signs (24Hr): Vital Signs - 24 hr 01/05/22 20:19 01/06/22 06:00 Temperature 96 F L 98.5 F Pulse Rate 70 61 Respiratory Rate 17 18 Blood Pressure 123/57 L 179/79 H Pulse Oximetry 96 95 Oxygen Delivery Method Room Air Room Air BMI result Body Mass Index 17.3 Labs Results: 12/30/21 22:53 01/02/22 08:00 Labs: Laboratory Results - last 48 hr 01/05/22 18:14 Iron 28 L TIBC 229 % Saturation 12 L Unsat Iron Binding 201 Medications Medications Current Medications Acetaminophen (Acetaminophen 325 Mg Tablet) 650 mg PO Q8H PRN PRN Reason: Pain Acetaminophen (Acetaminophen 325 Mg Tablet) 650 mg PO Q6H PRN PRN Reason: Headache/Pain Mild Scale (1-3) Al Hydroxide/Mg Hydroxide (Magnesium Hydrox/Alum Hydrox 30 Ml Oral.Susp) 30 ml PO Q6H PRN PRN Reason: Heartburn/Nausea Aripiprazole (Aripiprazole 10 Mg Tablet) 10 mg PO DAILY [facility] Last Admin: 01/06/22 08:53 Dose: 10 mg Atorvastatin Calcium (Atorvastatin Calcium 10 Mg Tablet) 10 mg PO BEDTIME [facility] Last Admin: 01/05/22 20:22 Dose: 10 mg Calcium Polycarbophil (Calcium Polycarbophil Tablet) 2 tab PO DAILY [facility] Last Admin: 01/06/22 08:53 Dose: 2 tab Donepezil HCl (Donepezil Hcl 10 Mg Tablet) 10 mg PO DAILY [facility] Last Admin: 01/06/22 08:53 Dose: 10 mg Ferrous Sulfate (Ferrous Sulfate 324 Mg Tablet.Dr) 324 mg PO DAILY [facility] Last Admin: 01/06/22 08:53 Dose: 324 mg Hydroxyzine HCl (Hydroxyzine Hcl 25 Mg Tablet) 25 mg PO BEDTIME PRN PRN Reason: Anxiety Levothyroxine Sodium (Levothyroxine Sodium 75 Mcg Tablet) 75 mcg PO DAILY@0630 [facility] Last Admin: 01/06/22 06:10 Dose: 75 mcg Magnesium Hydroxide (Milk Of Magnesia 30 Ml Oral.Susp) 30 ml PO DAILY PRN PRN Reason: Constipation Mirtazapine (Mirtazapine 15 Mg Tablet) 15 mg PO BEDTIME [facility] Last Admin: 01/05/22 20:23 Dose: 15 mg Multivitamins/Vitamin C (Multivitamin Tablet) 1 tab PO DAILY [facility] Last Admin: 01/06/22 08:53 Dose: 1 tab Pharmacy Consult (Consult Rx Perform Med Rec) 1 each MISCELLANE ONCE PRN PRN Reason: Consult order Sertraline HCl (Sertraline Hcl 50 Mg Tablet) 150 mg PO BEDTIME [facility] Last Admin: 01/05/22 20:22 Dose: 150 mg Trazodone HCl (Trazodone Hcl 50 Mg Tablet) 50 mg PO BEDTIME PRN PRN Reason: Insomnia Allergies Allergies Allergy/AdvReac Type Severity Reaction Status Date / Time No Known Allergies Allergy Verified 12/04/21 10:54 Assessment & Plan Assessment & Plan (1) Cognitive impairment: Status: Acute Code(s): R41.89 - Other symptoms and signs involving cognitive functions and awareness (2) MDD (major depressive disorder), recurrent episode, moderate: Status: Acute Code(s): F33.1 - Major depressive disorder, recurrent, moderate Plan the patient is an elderly male with a 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 Plan 1. Gather collateral information. 2. Continue medical workout. 3. Continue with Zoloft Abilify and other neuroleptics. Increasej Zoloft up to 150 mg p.o. daily due to exacerbation of depression. 4. Contact Dr. Galvez for further information. I spent ___20___ minutes with the patient and/or on the patient floor today, greater than?50% of which was spent counseling/coordinating care. Reason for contiued inpatient stay Substantial Risk for: inability to function, rapid decompensation and med/psych decompensation
[2022-01-07] MEDS: Levothyroxine Sodium 75 MCG TABLET PO (06:37)
[2022-01-07 08:00] VITALS: BP 120/60; PULSE 60; RESP 16; TEMP 36.4; O2SAT 99
[2022-01-07] MEDS: Multivitamin TABLET 1 TAB PO (10:58)
[2022-01-07] MEDS: Donepezil HCl 10 MG TABLET PO (10:58)
[2022-01-07] MEDS: ARIPiprazole 10 MG TABLET PO (10:59)
[2022-01-07] MEDS: Ferrous Sulfate 324 MG TABLET.DR PO (10:59)
--- NOTE | 2022-01-07 17:10 | P.PNPSI_ITS ---
Subjective Subjective Date of Service: 01/07/22 Reason For Visit: Change mental status Subjective Notes: Conditional Voluntary Interim History: The nursing staff reported that the patient has been on his room most of the time. Yesterday he was confused and delusional. On interview the patient denies new symptoms he looks pleasantly confused. Mental Status Exam Mental Status Exam Patient Appearance: Appropriate Patient Orientation: Person and Situation Level of Consciousness: Awake Patient Behavior: Cooperative Mood Description: Withdrawn Affect Description: Blunted Patient Cognition Impaired: Yes Ability to Follow Directions: Good Speech Pattern: Clear Hallucinations: None Delusions: Not Present Thought Process: Distracted Thought Content: positive for [place] Judgement: Fair Diagnostics Vital Signs (24Hr): Vital Signs - 24 hr 01/07/22 08:00 Temperature 97.5 F Pulse Rate 60 Respiratory Rate 16 Blood Pressure 120/60 Pulse Oximetry 99 Oxygen Delivery Method Room Air BMI result Body Mass Index 17.3 Labs Results: 12/30/21 22:53 01/02/22 08:00 Labs: Laboratory Results - last 48 hr 01/05/22 18:14 Iron 28 L TIBC 229 % Saturation 12 L Unsat Iron Binding 201 Medications Medications Current Medications Acetaminophen (Acetaminophen 325 Mg Tablet) 650 mg PO Q8H PRN PRN Reason: Pain Acetaminophen (Acetaminophen 325 Mg Tablet) 650 mg PO Q6H PRN PRN Reason: Headache/Pain Mild Scale (1-3) Al Hydroxide/Mg Hydroxide (Magnesium Hydrox/Alum Hydrox 30 Ml Oral.Susp) 30 ml PO Q6H PRN PRN Reason: Heartburn/Nausea Aripiprazole (Aripiprazole 10 Mg Tablet) 10 mg PO DAILY [facility] Last Admin: 01/07/22 10:59 Dose: 10 mg Atorvastatin Calcium (Atorvastatin Calcium 10 Mg Tablet) 10 mg PO BEDTIME [facility] Last Admin: 01/06/22 20:37 Dose: Not Given Calcium Polycarbophil (Calcium Polycarbophil Tablet) 2 tab PO DAILY [facility] Last Admin: 01/06/22 08:53 Dose: 2 tab Donepezil HCl (Donepezil Hcl 10 Mg Tablet) 10 mg PO DAILY [facility] Last Admin: 01/07/22 10:58 Dose: 10 mg Ferrous Sulfate (Ferrous Sulfate 324 Mg Tablet.) 324 mg PO DAILY [facility] Last Admin: 01/07/22 10:59 Dose: 324 mg Hydroxyzine HCl (Hydroxyzine Hcl 25 Mg Tablet) 25 mg PO BEDTIME PRN PRN Reason: Anxiety Levothyroxine Sodium (Levothyroxine Sodium 75 Mcg Tablet) 75 mcg PO DAILY@0630 [facility] Last Admin: 01/07/22 06:37 Dose: 75 mcg Magnesium Hydroxide (Milk Of Magnesia 30 Ml Oral.Susp) 30 ml PO DAILY PRN PRN Reason: Constipation Mirtazapine (Mirtazapine 15 Mg Tablet) 15 mg PO BEDTIME [facility] Last Admin: 01/06/22 20:37 Dose: Not Given Multivitamins/Vitamin C (Multivitamin Tablet) 1 tab PO DAILY [facility] Last Admin: 01/07/22 10:58 Dose: 1 tab Pharmacy Consult (Consult Rx Perform Med Rec) 1 each MISCELLANE ONCE PRN PRN Reason: Consult order Sertraline HCl (Sertraline Hcl 50 Mg Tablet) 150 mg PO BEDTIME [facility] Last Admin: 01/06/22 20:37 Dose: Not Given Trazodone HCl (Trazodone Hcl 50 Mg Tablet) 50 mg PO BEDTIME PRN PRN Reason: Insomnia Allergies Allergies Allergy/AdvReac Type Severity Reaction Status Date / Time No Known Allergies Allergy Verified 12/04/21 10:54 Assessment & Plan Assessment & Plan (1) Cognitive impairment: Status: Acute Code(s): R41.89 - Other symptoms and signs involving cognitive functions and awareness (2) MDD (major depressive disorder), recurrent episode, moderate: Status: Acute Code(s): F33.1 - Major depressive disorder, recurrent, moderate Plan the patient is an elderly male with a 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 Plan 1. Gather collateral information. 2. Continue medical workout. 3. Continue with Zoloft Abilify and other neuroleptics. Increasej Zoloft up to 150 mg p.o. daily due to exacerbation of depression. 4. Contact Dr. Galvez for further information. I spent ___20___ minutes with the patient and/or on the patient floor today, greater than?50% of which was spent counseling/coordinating care. Reason for contiued inpatient stay Substantial Risk for: inability to function, rapid decompensation and med/psych decompensation
[2022-01-07 18:00] VITALS: BP 106/57; PULSE 81; TEMP 36.1; O2SAT 96
[2022-01-07] MEDS: Sertraline HCL 50 MG TABLET 150 MG PO (21:22)
[2022-01-07] MEDS: Mirtazapine 15 MG TABLET PO (21:23)
[2022-01-07] MEDS: Atorvastatin Calcium 10 MG TABLET PO (21:23)
[2022-01-08] MEDS: Levothyroxine Sodium 75 MCG TABLET PO (06:36)
[2022-01-08 07:30] VITALS: BP 133/60; PULSE 61; RESP 16; TEMP 36.3; O2SAT 94
[2022-01-08] MEDS: calcium polycarbophiL TABLET 2 TAB PO (08:29)
[2022-01-08] MEDS: Donepezil HCl 10 MG TABLET PO (08:29)
[2022-01-08] MEDS: Multivitamin TABLET 1 TAB PO (08:29)
[2022-01-08] MEDS: Ferrous Sulfate 324 MG TABLET.DR PO (08:30)
--- NOTE | 2022-01-08 13:26 | MHC.CLN ---
F/U DIET=REGULAR. ENSURE BID PROVIDES ADDITIONAL 700 KCALS, 40 GRAMS PROTEIN. NO REPORTED CONCERNS WITH INTAKE. RD TO FOLLOW WEEKLY.
--- NOTE | 2022-01-08 15:25 | P.PNPSI_ITS ---
Subjective Subjective Date of Service: 01/08/22 Reason For Visit: Change mental status Subjective Notes: Conditional Voluntary Interim History: the nursing staff reported the patient was out for meals, he watch a little TV. We did a [place] testing he scored only 17/30. We had a family meeting with his and we explained the goals of treatment. Since he has an advanced dementia we will start also Namenda. Mental Status Exam Mental Status Exam Patient Appearance: Well Grooomed Patient Orientation: Person Level of Consciousness: Awake Patient Behavior: Guarded, Passive and Suspicious Mood Description: Withdrawn Affect Description: Flat Patient Cognition Impaired: Yes Ability to Follow Directions: Good Speech Pattern: Clear Hallucinations: None Delusions: Not Present Thought Process: Distracted and Slowed Thinking Thought Content: positive for [place] Judgement: Fair Diagnostics Vital Signs (24Hr): Vital Signs - 24 hr 01/07/22 18:00 01/08/22 07:30 Temperature 96.9 F 97.3 F Pulse Rate 81 61 Respiratory Rate 16 Blood Pressure 106/57 L 133/60 Pulse Oximetry 96 94 Oxygen Delivery Method Room Air Room Air BMI result Body Mass Index 17.3 Labs Results: 12/30/21 22:53 01/02/22 08:00 Medications Medications Current Medications Acetaminophen (Acetaminophen 325 Mg Tablet) 650 mg PO Q8H PRN PRN Reason: Pain Acetaminophen (Acetaminophen 325 Mg Tablet) 650 mg PO Q6H PRN PRN Reason: Headache/Pain Mild Scale (1-3) Al Hydroxide/Mg Hydroxide (Magnesium Hydrox/Alum Hydrox 30 Ml Oral.Susp) 30 ml PO Q6H PRN PRN Reason: Heartburn/Nausea Aripiprazole (Aripiprazole 10 Mg Tablet) 10 mg PO DAILY [facility] Last Admin: 01/08/22 08:29 Dose: 10 mg Atorvastatin Calcium (Atorvastatin Calcium 10 Mg Tablet) 10 mg PO BEDTIME [facility] Last Admin: 01/07/22 21:23 Dose: 10 mg Calcium Polycarbophil (Calcium Polycarbophil Tablet) 2 tab PO DAILY [facility] Last Admin: 01/08/22 08:29 Dose: 2 tab Donepezil HCl (Donepezil Hcl 10 Mg Tablet) 10 mg PO DAILY [facility] Last Admin: 01/08/22 08:29 Dose: 10 mg Ferrous Sulfate (Ferrous Sulfate 324 Mg Tablet.) 324 mg PO DAILY [facility] Last Admin: 01/08/22 08:30 Dose: 324 mg Hydroxyzine HCl (Hydroxyzine Hcl 25 Mg Tablet) 25 mg PO BEDTIME PRN PRN Reason: Anxiety Levothyroxine Sodium (Levothyroxine Sodium 75 Mcg Tablet) 75 mcg PO DAILY@0630 [facility] Last Admin: 01/08/22 06:36 Dose: 75 mcg Magnesium Hydroxide (Milk Of Magnesia 30 Ml Oral.Susp) 30 ml PO DAILY PRN PRN Reason: Constipation Mirtazapine (Mirtazapine 15 Mg Tablet) 15 mg PO BEDTIME [facility] Last Admin: 01/07/22 21:23 Dose: 15 mg Multivitamins/Vitamin C (Multivitamin Tablet) 1 tab PO DAILY [facility] Last Admin: 01/08/22 08:29 Dose: 1 tab Pharmacy Consult (Consult Rx Perform Med Rec) 1 each MISCELLANE ONCE PRN PRN Reason: Consult order Sertraline HCl (Sertraline Hcl 50 Mg Tablet) 150 mg PO BEDTIME [facility] Last Admin: 01/07/22 21:22 Dose: 150 mg Trazodone HCl (Trazodone Hcl 50 Mg Tablet) 50 mg PO BEDTIME PRN PRN Reason: Insomnia Allergies Allergies Allergy/AdvReac Type Severity Reaction Status Date / Time No Known Allergies Allergy Verified 12/04/21 10:54 Assessment & Plan Assessment & Plan (1) Cognitive impairment: Status: Acute Code(s): R41.89 - Other symptoms and signs involving cognitive functions and awareness (2) MDD (major depressive disorder), recurrent episode, moderate: Status: Acute Code(s): F33.1 - Major depressive disorder, recurrent, moderate Plan the patient is an elderly male with a 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 Plan 1. Gather collateral information. 2. Continue medical workout. 3. Continue with Zoloft Abilify and other neuroleptics. Increasej Zoloft up to 150 mg p.o. daily due to exacerbation of depression. 4. Contact Dr. Galvez for further information. 5. Add Namenda 5 mg p.o. day I spent ___20___ minutes with the patient and/or on the patient floor today, greater than?50% of which was spent counseling/coordinating care. Reason for contiued inpatient stay Substantial Risk for: inability to function, rapid decompensation and med/psych decompensation
[2022-01-08 18:00] VITALS: BP 109/53; PULSE 67; RESP 14; TEMP 36.2; O2SAT 95
[2022-01-08] MEDS: Mirtazapine 15 MG TABLET PO (20:48)
[2022-01-08] MEDS: Sertraline HCL 50 MG TABLET 150 MG PO (20:48)
[2022-01-08] MEDS: Atorvastatin Calcium 10 MG TABLET PO (20:48)
[2022-01-09 06:00] VITALS: BP 195/80; PULSE 68; RESP 16; TEMP 36.4; O2SAT 95
[2022-01-09] MEDS: Levothyroxine Sodium 75 MCG TABLET PO (06:20)
[2022-01-09] MEDS: Donepezil HCl 10 MG TABLET PO (08:44)
[2022-01-09] MEDS: Multivitamin TABLET 1 TAB PO (08:44)
[2022-01-09] MEDS: calcium polycarbophiL TABLET 2 TAB PO (08:44)
[2022-01-09] MEDS: Memantine HCl 5 MG TABLET PO ×2 (08:45→20:31)
[2022-01-09] MEDS: ARIPiprazole 10 MG TABLET PO (08:45)
[2022-01-09] MEDS: Ferrous Sulfate 324 MG TABLET.DR PO (08:45)
--- NOTE | 2022-01-09 14:52 | HO.PSYCHPN ---
Subjective Subjective Date of Service: 01/09/22 Reason For Visit: Change mental status Subjective Notes: Conditional Voluntary Interim History: The nursing staff reported the patient has been on his room most of the time very quiet and isolative. Yesterday we had a family meeting and her reported that he has not changed his mental status in a long time. They were asking about a neurology consult pending EEG that was schedule Before his admission. On interview he was on his bed, internally preoccupied with lack of energy. Confused at times Mental Status Exam Mental Status Exam Patient Appearance: Appropriate Patient Orientation: Person Level of Consciousness: Awake Patient Behavior: Cooperative Mood Description: Appropriate Affect Description: Blunted Patient Cognition Impaired: Yes Ability to Follow Directions: Good Speech Pattern: Clear Hallucinations: None Delusions: Paranoid Ideation Thought Process: Linear Thought Content: positive for [place] and positive for Poverty of Content Judgement: Fair Diagnostics Vital Signs (24Hr): Vital Signs - 24 hr 01/08/22 18:00 Temperature 97.1 F Pulse Rate 67 Respiratory Rate 14 Blood Pressure 109/53 L Pulse Oximetry 95 Oxygen Delivery Method Room Air BMI result Body Mass Index 17.3 Labs Results: 12/30/21 22:53 01/02/22 08:00 Medications Medications Current Medications Acetaminophen (Acetaminophen 325 Mg Tablet) 650 mg PO Q8H PRN PRN Reason: Pain Acetaminophen (Acetaminophen 325 Mg Tablet) 650 mg PO Q6H PRN PRN Reason: Headache/Pain Mild Scale (1-3) Al Hydroxide/Mg Hydroxide (Magnesium Hydrox/Alum Hydrox 30 Ml Oral.Susp) 30 ml PO Q6H PRN PRN Reason: Heartburn/Nausea Aripiprazole (Aripiprazole 10 Mg Tablet) 10 mg PO DAILY [facility] Last Admin: 01/09/22 08:45 Dose: 10 mg Atorvastatin Calcium (Atorvastatin Calcium 10 Mg Tablet) 10 mg PO BEDTIME [facility] Last Admin: 01/08/22 20:48 Dose: 10 mg Calcium Polycarbophil (Calcium Polycarbophil Tablet) 2 tab PO DAILY [facility] Last Admin: 01/09/22 08:44 Dose: 2 tab Donepezil HCl (Donepezil Hcl 10 Mg Tablet) 10 mg PO DAILY [facility] Last Admin: 01/09/22 08:44 Dose: 10 mg Ferrous Sulfate (Ferrous Sulfate 324 Mg Tablet.) 324 mg PO DAILY [facility] Last Admin: 01/09/22 08:45 Dose: 324 mg Hydroxyzine HCl (Hydroxyzine Hcl 25 Mg Tablet) 25 mg PO BEDTIME PRN PRN Reason: Anxiety Levothyroxine Sodium (Levothyroxine Sodium 75 Mcg Tablet) 75 mcg PO DAILY@0630 [facility] Last Admin: 01/09/22 06:20 Dose: 75 mcg Magnesium Hydroxide (Milk Of Magnesia 30 Ml Oral.Susp) 30 ml PO DAILY PRN PRN Reason: Constipation Memantine (Memantine Hcl 5 Mg Tablet) 5 mg PO DAILY [facility] Last Admin: 01/09/22 08:45 Dose: 5 mg Mirtazapine (Mirtazapine 15 Mg Tablet) 15 mg PO BEDTIME [facility] Last Admin: 01/08/22 20:48 Dose: 15 mg Multivitamins/Vitamin C (Multivitamin Tablet) 1 tab PO DAILY [facility] Last Admin: 01/09/22 08:44 Dose: 1 tab Pharmacy Consult (Consult Rx Perform Med Rec) 1 each MISCELLANE ONCE PRN PRN Reason: Consult order Sertraline HCl (Sertraline Hcl 50 Mg Tablet) 150 mg PO BEDTIME [facility] Last Admin: 01/08/22 20:48 Dose: 150 mg Trazodone HCl (Trazodone Hcl 50 Mg Tablet) 50 mg PO BEDTIME PRN PRN Reason: Insomnia Allergies Allergies Allergy/AdvReac Type Severity Reaction Status Date / Time No Known Allergies Allergy Verified 12/04/21 10:54 Assessment & Plan Assessment & Plan (1) Cognitive impairment: Status: Acute Code(s): R41.89 - Other symptoms and signs involving cognitive functions and awareness (2) MDD (major depressive disorder), recurrent episode, moderate: Status: Acute Code(s): F33.1 - Major depressive disorder, recurrent, moderate Plan the patient is an elderly male with a 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 Plan 1. Gather collateral information. 2. Continue medical workout. 3. Continue with Zoloft Abilify and other neuroleptics. Increasej Zoloft up to 150 mg p.o. daily due to exacerbation of depression. 4. Contact Dr. Galvez for further information. 5. increase Namenda 5 mg p.o. b.i.d. I spent __20____ minutes with the patient and/or on the patient floor today, greater than?50% of which was spent counseling/coordinating care. Reason for contiued inpatient stay Substantial Risk for: inability to function, rapid decompensation and med/psych decompensation
[2022-01-09 18:30] VITALS: BP 125/59; PULSE 68; RESP 16; TEMP 37.2; O2SAT 98
[2022-01-09 18:35] VITALS: BP 148/84; PULSE 67; RESP 16; O2SAT 96
--- NOTE | 2022-01-09 18:39 | P.EN_ITS ---
Event Note Date of Service: 01/09/22 Event Note: [place] [facility] called and informed that patient had unwitnessed fall and hit his head and left ribs; nurse sent pictures and visible lesion on left side of forehead; some bruising noticeable on left ribs. Sent patient for stat head CT and chest x-ray; placed stat consult for hospitalist to do neuro exam. Nurse will follow- up with consult. Also nursing will do neuro checks for the next 24 hours Q 4
[2022-01-09 18:40] VITALS: BP 133/66; PULSE 81; RESP 16; O2SAT 96
--- NOTE | 2022-01-09 19:29 | PC.NURSE ---
1833: pt's call [place] rang. pt was found in bed c/o fall in the bathroom. Pt had large hematoma noted to left forehead with abrasion noted and sc-am amt ss drainage. 2 sm bumps noted to left back of head. no abrasions. had approx 1 1/2 inch abrasion noted to left elbow c sc-sm amt ss drainage noted. both areas cleaned. large bandaids placed to left elbow. pt also c/o left lower rib pain 3/10. no abrasion or ecchymosis noted. lungs clear. No other bruises or swelling noted. pupils 2 brisk response. face symetrical. HG strong and equal. orthostatics pos. c/o dizziness during orthos. Lungs clear bilat. HR reg and strong. Dr. Keith notified and orders recieved. [address] and Xray via . no c/o during transport. Seen by hospitalist while in Xray. orders recieved. pt returned to floor-requesting to eat dinner. given meal.
[2022-01-09 19:58] LABS: MANUAL DIFF FLAG NO
[2022-01-09 19:59] LABS: Basophils Percent Auto 0.4 % (0-2); Eosinophils Absolute Auto 0.1 X10*3/uL (0.0-0.4); Eosinophils Percent Auto 1.8 % (0-4); Hematocrit 36.6 % (42.0-52.0); Hemoglobin 11.9 g/dl (14.0-18.0); Imm Gran Abs Auto 0.02 X10*3/uL (0.00-0.03); Imm Gran Pct Auto 0.4 % (0.0-0.4); Lymphocytes Absolute Auto 0.7 X10*3/uL (1.2-4.9); Lymphocytes Percent Auto 12.5 % (20-40); Mean Corpuscular HGB Conc 32.5 g/dl (31.0-36.0); Mean Corpuscular Hemoglobin 31.5 pg (27.0-33.0); Mean Corpuscular Volume 96.8 fL (80.0-98.0); Mean Platelet Volume 9.3 fL (9.4-12.4); Monocytes Absolute Auto 0.4 X10*3/uL (0.1-1.2); Monocytes Percent Auto 7.5 % (2-11); Neutrophils Absolute Auto 4.4 x10*3/uL (2.0-8.3); Neutrophils Percent Auto 77.4 % (45-73); Platelet Count 189 X10*3/uL (160-400); Red Blood Count 3.78 X10*6/uL (4.60-5.80); Red Cell Distribution Width 13.4 % (11.0-16.0); White Blood Count 5.7 X10*3/uL (4.8-10.8)
--- NOTE | 2022-01-09 20:03 | HO.HSGERICON ---
History of Present Illness Data of Consult Service Date: 01/09/22 Primary Care Provider: Nishant Corral MD HPI We were consulted to evaluate pt after a fall. Pt was seen at the Xray department. Pt reports that he get up abruptly from a seated position, he felt dizzy and he fell to the floor bumping his head. He reports no loss of consciousness, no palpitations, no SOB or chest pain. He dneies any pain on taking deep breaths. he denies any headache at this time, no change in vision, no weakness, numbness or tingling in his arms or legs. his orthostatic vitals were taken prior to me seeing him which showed 125/59 supine, 148/84 sitting, and 133/66 standing. vitals otherwise within normal Pending Head CT and ribs xray pending Review of Systems Review of Systems: Yes all other systems are reviewed and are negative [facility] Medical History Depression Depression HLD (hyperlipidemia) HTN (hypertension) Hypothyroidism Prostate cancer Family History Other Prostate cancer Surgical History H/O prostatectomy History of hernia surgery Social History Household Members: Spouse Housing: House Do you presently have visiting nurse or other home services: No Patient Tobacco Use Status: Former Tobacco user Tobacco use type: Cigarette Cigarette Packs Per Day: 1 Cigarettes Per Day: 20.0 Smoked in Last 30 Days: No e-Cigarette/Vaping Use: Never Used Patient Interested in Nicotine Replacement: No Patient Given Instructions on How to Stop Smoking: No Second Hand Smoke Exposure: No Use of substances other than those prescribed or required for medical reasons: No Currently Displaying Signs/Symptoms of Drug Intoxication Withdrawal: No Any prior treatment program specific to substance use: No Have you been hit, kicked, punched, or otherwise hurt by someone within the past year? If so, by whom?: No Do you feel safe in your current relationship?: Yes Is there a partner from a previous relationship who is making you feel unsafe now?: No Are you made to feel afraid or neglected: No Advance Directives: Yes Advance Directives Information Provided: No (declined) Advance Directives on File: No Do you have thoughts of harming others: None Do you have a plan to hurt others: No Plan Recently lost weight without trying: No Nutrition Risks: Emaciation/Cachexia Poor oral hygiene: No service: Yes ([employer]) Sexual orientation: Straight/Heterosexual Meds Allergies Allergy/AdvReac Type Severity Reaction Status Date / Time No Known Allergies Allergy Verified 12/04/21 10:54 Active Medications: Current Medications Acetaminophen (Acetaminophen 325 Mg Tablet) 650 mg PO Q8H PRN PRN Reason: Pain Acetaminophen (Acetaminophen 325 Mg Tablet) 650 mg PO Q6H PRN PRN Reason: Headache/Pain Mild Scale (1-3) Al Hydroxide/Mg Hydroxide (Magnesium Hydrox/Alum Hydrox 30 Ml Oral.Susp) 30 ml PO Q6H PRN PRN Reason: Heartburn/Nausea Aripiprazole (Aripiprazole 10 Mg Tablet) 10 mg PO DAILY [facility] Last Admin: 01/09/22 08:45 Dose: 10 mg Atorvastatin Calcium (Atorvastatin Calcium 10 Mg Tablet) 10 mg PO BEDTIME [facility] Last Admin: 01/08/22 20:48 Dose: 10 mg Calcium Polycarbophil (Calcium Polycarbophil Tablet) 2 tab PO DAILY [facility] Last Admin: 01/09/22 08:44 Dose: 2 tab Donepezil HCl (Donepezil Hcl 10 Mg Tablet) 10 mg PO DAILY [facility] Last Admin: 01/09/22 08:44 Dose: 10 mg Ferrous Sulfate (Ferrous Sulfate 324 Mg Tablet.Dr) 324 mg PO DAILY [facility] Last Admin: 01/09/22 08:45 Dose: 324 mg Hydroxyzine HCl (Hydroxyzine Hcl 25 Mg Tablet) 25 mg PO BEDTIME PRN PRN Reason: Anxiety Levothyroxine Sodium (Levothyroxine Sodium 75 Mcg Tablet) 75 mcg PO DAILY@0630 [facility] Last Admin: 01/09/22 06:20 Dose: 75 mcg Magnesium Hydroxide (Milk Of Magnesia 30 Ml Oral.Susp) 30 ml PO DAILY PRN PRN Reason: Constipation Memantine (Memantine Hcl 5 Mg Tablet) 5 mg PO BID [facility] Mirtazapine (Mirtazapine 15 Mg Tablet) 15 mg PO BEDTIME [facility] Last Admin: 01/08/22 20:48 Dose: 15 mg Multivitamins/Vitamin C (Multivitamin Tablet) 1 tab PO DAILY [facility] Last Admin: 01/09/22 08:44 Dose: 1 tab Pharmacy Consult (Consult Rx Perform Med Rec) 1 each MISCELLANE ONCE PRN PRN Reason: Consult order Sertraline HCl (Sertraline Hcl 50 Mg Tablet) 150 mg PO BEDTIME [facility] Last Admin: 01/08/22 20:48 Dose: 150 mg Trazodone HCl (Trazodone Hcl 50 Mg Tablet) 50 mg PO BEDTIME PRN PRN Reason: Insomnia Home Medications Medication Instructions Recorded Confirmed Last Taken Type acetaminophen 650 mg 650 mg PO Q8H PRN Pain 04/04/21 12/31/21 12/29/21 History tablet,extended release sertraline 100 mg tablet 100 mg PO BEDTIME 12/04/21 12/31/21 12/29/21 History aripiprazole 10 mg tablet 1 tab PO DAILY 12/31/21 12/31/21 12/29/21 History donepezil 10 mg tablet 1 tab PO DAILY 12/31/21 12/31/21 12/29/21 History ferrous sulfate 325 mg (65 mg 325 mg PO DAILY 12/31/21 12/31/21 12/29/21 History iron) tablet mirtazapine 15 mg tablet 1 tab PO BEDTIME 12/31/21 12/31/21 12/29/21 History Results Labs CBC and Chem 7: 12/30/21 22:53 01/02/22 08:00 Assessment and Plan (1) Fall: Status: Acute (2) Orthostatic hypotension: Status: Acute Plan 76 yo M who is admitted to geriatric psych had an unwitnessed fall while getitng up to go to the bathroom. Pt sustained a hematoma on the forehead. # Fall - likely 2/2 orthostatic hypotension - BP checked after the fall shows +ve orthostasis - Labs obtained show no significant abnormality - Head CT pending - Will give 1 L of LR - fall precaution # Orthostatic Hypotension - Pt orthostatic vitals positive - Will give 1 L of LR and recheck orthostatics following IV infusion - Pt meds reviewed, pt not on antihypertensives Thank you for this consult recommend Fall precaution and IV prn if needed Physical Exam Vital Signs: Last Vital Signs Temp 98.9 F 01/09/22 18:30 Pulse 81 01/09/22 18:40 Resp 16 01/09/22 18:40 BP 133/66 01/09/22 18:40 Pulse Ox 96 01/09/22 18:40 O2 Del Method 01/09/22 18:40 BMI result Body Mass Index 17.3 Const General: cooperative, comfortable and no acute distress HENMT Other: Pt has a left hematoma on the forhead with small abraison Resp Effort & Inspection: normal respiratory effort and able to speak in complete sentences GI Inspection: Yes normal to inspection Palpation (GI): Soft to palpation Skin Other: abrasion over the left forhead Neuro Cranial nerves: Yes CN's II-XII intact bilaterally Cognition (Neuro): normal cognition Speech: Other speech findings present (Neuro) (normal speech) Motor exam (neuro): 5/5 motor strength present throughout Extrem General: Yes normal to inspection
[2022-01-09 20:16] LABS: Anion Gap 13 (12-20); Blood Urea Nitrogen 32 mg/dL (9-16); Calcium 8.9 mg/dL (8.4-10.2); Carbon Dioxide 31 mmol/L (22-29); Chloride 102 mmol/L (96-108); Creatinine Clr Calc Pharmacy 66.8; Estimated Glomerular Filt Rate > 60; Glucose Random 105 mg/dL (60-115); Potassium 4.2 mmol/L (3.3-5.1); Sodium 142 mmol/L (135-145)
[2022-01-09] MEDS: Sertraline HCL 50 MG TABLET 150 MG PO (20:31)
[2022-01-09] MEDS: Atorvastatin Calcium 10 MG TABLET PO (20:31)
[2022-01-09] MEDS: Mirtazapine 15 MG TABLET PO (20:31)
[2022-01-09] MEDS: Lactated Ringers 1,000 ML 999 ML IV (21:27)
[2022-01-10] MEDS: Levothyroxine Sodium 75 MCG TABLET PO (05:33)
[2022-01-10 07:40] VITALS: BP 107/51; PULSE 64; RESP 18; TEMP 36.9; O2SAT 93
[2022-01-10] MEDS: Multivitamin TABLET 1 TAB PO (09:55)
[2022-01-10] MEDS: Ferrous Sulfate 324 MG TABLET.DR PO (09:55)
[2022-01-10] MEDS: ARIPiprazole 10 MG TABLET PO (09:55)
[2022-01-10] MEDS: calcium polycarbophiL TABLET 2 TAB PO (09:56)
[2022-01-10] MEDS: Donepezil HCl 10 MG TABLET PO (09:56)
--- NOTE | 2022-01-10 14:09 | HO.PSYCHPN ---
Subjective Subjective Date of Service: 01/10/22 Reason For Visit: Change mental status Subjective Notes: Conditional Voluntary Interim History: the patient fell yesterday. He was having orthostatic symptoms. Medical workup came up negative. On interview the patient reported sometimes he feels DC and he has been dizzy for several months. We review the list of medications and recently we increase Namenda so we have. It in order to make sure that his blood pressure becomes normal. On interview he denies new symptoms. He was seeing more in the common areas Mental Status Exam Mental Status Exam Patient Appearance: Well Grooomed Patient Orientation: Person and Situation Level of Consciousness: Appropriate Patient Behavior: Cooperative Mood Description: Withdrawn Affect Description: Flat Patient Cognition Impaired: Yes Ability to Follow Directions: Fair Speech Pattern: Appropriate Hallucinations: None Delusions: Not Present Thought Process: Linear Thought Content: positive for Goal Oriented Judgement: Fair Diagnostics Vital Signs (24Hr): Vital Signs - 24 hr 01/09/22 18:30 01/09/22 18:35 01/09/22 18:40 Temperature 98.9 F Pulse Rate 68 67 81 Respiratory Rate 16 16 16 Blood Pressure 125/59 L 148/84 H 133/66 Pulse Oximetry 98 96 96 Oxygen Delivery Method Room Air Room Air Room Air 01/10/22 07:40 Temperature 98.5 F Pulse Rate 64 Respiratory Rate 18 Blood Pressure 107/51 L Pulse Oximetry 93 Oxygen Delivery Method Room Air BMI result Body Mass Index 17.3 Labs Results: 01/09/22 19:54 01/09/22 19:54 Labs: Laboratory Results - last 48 hr 01/09/22 01/09/22 19:54 19:54 WBC 5.7 RBC 3.78 L Hgb 11.9 L Hct 36.6 L MCV 96.8 MCH 31.5 MCHC 32.5 RDW 13.4 Plt Count 189 D MPV 9.3 L Immature Gran % (Auto) 0.4 Neut % (Auto) 77.4 H Lymph % (Auto) 12.5 L [place] % (Auto) 7.5 Eos % (Auto) 1.8 Baso % (Auto) 0.4 Lymph # (Auto) 0.7 L [place] # (Auto) 0.4 Eos # (Auto) 0.1 Baso # (Auto) 0.0 Abs Immat Gran (auto) 0.02 Absolute Neuts (auto) 4.4 Absolute Nucleated RBC 0.000 Nucleated RBC % (auto) 0.0 Sodium 142 Potassium 4.2 Chloride 102 Carbon Dioxide 31 H Anion Gap 13 BUN 32 H Creatinine 0.77 Estim Creat Clear Calc 66.8 Estimated GFR > 60 Random Glucose 105 Calcium 8.9 Imaging Radiology Impressions: ITS Impressions Head CT 01/09/22 19:11 IMPRESSION: Moderate to large left scalp hematoma without calvarial fracture. No acute intracranial process seen. No left rib fracture abnormality seen. The lungs are clear Ribs X-Ray 01/09/22 19:17 IMPRESSION: Moderate to large left scalp hematoma without calvarial fracture. No acute intracranial process seen. No left rib fracture abnormality seen. The lungs are clear Medications Medications Current Medications Acetaminophen (Acetaminophen 325 Mg Tablet) 650 mg PO Q8H PRN PRN Reason: Pain Acetaminophen (Acetaminophen 325 Mg Tablet) 650 mg PO Q6H PRN PRN Reason: Headache/Pain Mild Scale (1-3) Al Hydroxide/Mg Hydroxide (Magnesium Hydrox/Alum Hydrox 30 Ml Oral.Susp) 30 ml PO Q6H PRN PRN Reason: Heartburn/Nausea Aripiprazole (Aripiprazole 10 Mg Tablet) 10 mg PO DAILY [facility] Last Admin: 01/10/22 09:55 Dose: 10 mg Atorvastatin Calcium (Atorvastatin Calcium 10 Mg Tablet) 10 mg PO BEDTIME [facility] Last Admin: 01/09/22 20:31 Dose: 10 mg Calcium Polycarbophil (Calcium Polycarbophil Tablet) 2 tab PO DAILY [facility] Last Admin: 01/10/22 09:56 Dose: 2 tab Donepezil HCl (Donepezil Hcl 10 Mg Tablet) 10 mg PO DAILY [facility] Last Admin: 01/10/22 09:56 Dose: 10 mg Ferrous Sulfate (Ferrous Sulfate 324 Mg Tablet.Dr) 324 mg PO DAILY [facility] Last Admin: 01/10/22 09:55 Dose: 324 mg Hydroxyzine HCl (Hydroxyzine Hcl 25 Mg Tablet) 25 mg PO BEDTIME PRN PRN Reason: Anxiety Levothyroxine Sodium (Levothyroxine Sodium 75 Mcg Tablet) 75 mcg PO DAILY@0630 [facility] Last Admin: 01/10/22 05:33 Dose: 75 mcg Magnesium Hydroxide (Milk Of Magnesia 30 Ml Oral.Susp) 30 ml PO DAILY PRN PRN Reason: Constipation Mirtazapine (Mirtazapine 15 Mg Tablet) 15 mg PO BEDTIME [facility] Last Admin: 01/09/22 20:31 Dose: 15 mg Multivitamins/Vitamin C (Multivitamin Tablet) 1 tab PO DAILY [facility] Last Admin: 01/10/22 09:55 Dose: 1 tab Pharmacy Consult (Consult Rx Perform Med Rec) 1 each MISCELLANE ONCE PRN PRN Reason: Consult order Sertraline HCl (Sertraline Hcl 50 Mg Tablet) 150 mg PO BEDTIME [facility] Last Admin: 01/09/22 20:31 Dose: 150 mg Trazodone HCl (Trazodone Hcl 50 Mg Tablet) 50 mg PO BEDTIME PRN PRN Reason: Insomnia Allergies Allergies Allergy/AdvReac Type Severity Reaction Status Date / Time No Known Allergies Allergy Verified 12/04/21 10:54 Assessment & Plan Assessment & Plan (1) Fall: Status: Acute Code(s): W19.XXXA - Unspecified fall, initial encounter (2) Orthostatic hypotension: Status: Acute Code(s): I95.1 - Orthostatic hypotension Plan 76 yo M who is admitted to geriatric psych had an unwitnessed fall while getitng up to go to the bathroom. Pt sustained a hematoma on the forehead. # Fall - likely 2/2 orthostatic hypotension - BP checked after the fall shows +ve orthostasis - Labs obtained show no significant abnormality - Head CT pending - Will give 1 L of LR - fall precaution # Orthostatic Hypotension - Pt orthostatic vitals positive - Will give 1 L of LR and recheck orthostatics following IV infusion - Pt meds reviewed, pt not on antihypertensives Thank you for this consult recommend Fall precaution and IV prn if needed I spent __20____ minutes with the patient and/or on the patient floor today, greater than?50% of which was spent counseling/coordinating care. Reason for contiued inpatient stay Substantial Risk for: inability to function, rapid decompensation and med/psych decompensation
[2022-01-10] MEDS: Acetaminophen 325 MG TABLET 650 MG PO (15:02)
[2022-01-10 20:14] VITALS: BP 137/63; PULSE 73; RESP 16; TEMP 36.1; O2SAT 94
[2022-01-10] MEDS: Mirtazapine 15 MG TABLET PO (20:23)
[2022-01-10] MEDS: Atorvastatin Calcium 10 MG TABLET PO (20:24)
[2022-01-10] MEDS: Sertraline HCL 50 MG TABLET 150 MG PO (20:24)
[2022-01-11 06:00] VITALS: BP 102/68; PULSE 84; RESP 16; TEMP 36.6; O2SAT 92
[2022-01-11] MEDS: Levothyroxine Sodium 75 MCG TABLET PO (06:22)
[2022-01-11] MEDS: calcium polycarbophiL TABLET 2 TAB PO (08:35)
[2022-01-11] MEDS: ARIPiprazole 10 MG TABLET PO (08:35)
[2022-01-11] MEDS: Donepezil HCl 10 MG TABLET PO (08:35)
[2022-01-11] MEDS: Multivitamin TABLET 1 TAB PO (08:35)
[2022-01-11] MEDS: Ferrous Sulfate 324 MG TABLET.DR PO (08:35)
[2022-01-11 20:00] VITALS: BP 155/83; PULSE 67; RESP 12; TEMP 37.7; O2SAT 93
[2022-01-11] MEDS: Acetaminophen 325 MG TABLET 650 MG PO (20:06)
[2022-01-11] MEDS: Atorvastatin Calcium 10 MG TABLET PO (20:07)
[2022-01-11] MEDS: Sertraline HCL 50 MG TABLET 150 MG PO (20:07)
[2022-01-11] MEDS: Mirtazapine 15 MG TABLET PO (20:07)
[2022-01-11 21:30] VITALS: TEMP 36.4
--- NOTE | 2022-01-11 22:14 | HO.PSYCHPN ---
Subjective Subjective Date of Service: 01/11/22 Reason For Visit: Change mental status Subjective Notes: Conditional Voluntary Interim History: Patient somewhat lethargic pressed had recent fall and head injury. Patient flat he is one-to-one denies active SI Medication Compliance: Yes Mental Status Exam Mental Status Exam Patient Appearance: Well Grooomed Patient Orientation: Person and Situation Level of Consciousness: Appropriate Patient Behavior: Cooperative Mood Description: Withdrawn Affect Description: Flat Patient Cognition Impaired: Yes Ability to Follow Directions: Fair Speech Pattern: Clear, Appropriate and Monotone Hallucinations: None Delusions: Not Present Thought Process: Linear Thought Content: positive for Goal Oriented Depressive Symptoms: Thoughts of /Suicide Abnormal Motor Activity Signs and Symptoms: Psychomotor Retardation Judgement: Fair Diagnostics Vital Signs (24Hr): Vital Signs - 24 hr 01/11/22 06:00 01/11/22 20:00 01/11/22 21:30 Temperature 97.9 F 99.8 F 97.6 F Pulse Rate 84 67 Respiratory Rate 16 12 Blood Pressure 102/68 155/83 H Pulse Oximetry 92 93 Oxygen Delivery Method Room Air Room Air BMI result Body Mass Index 17.3 Labs Results: 01/09/22 19:54 01/09/22 19:54 Imaging Radiology Impressions: ITS Impressions Head CT 01/09/22 19:11 IMPRESSION: Moderate to large left scalp hematoma without calvarial fracture. No acute intracranial process seen. No left rib fracture abnormality seen. The lungs are clear Ribs X-Ray 01/09/22 19:17 IMPRESSION: Moderate to large left scalp hematoma without calvarial fracture. No acute intracranial process seen. No left rib fracture abnormality seen. The lungs are clear Medications Medications Current Medications Acetaminophen (Acetaminophen 325 Mg Tablet) 650 mg PO Q8H PRN PRN Reason: Pain Acetaminophen (Acetaminophen 325 Mg Tablet) 650 mg PO Q6H PRN PRN Reason: Headache/Pain Mild Scale (1-3) Last Admin: 01/11/22 20:06 Dose: 650 mg Al Hydroxide/Mg Hydroxide (Magnesium Hydrox/Alum Hydrox 30 Ml Oral.Susp) 30 ml PO Q6H PRN PRN Reason: Heartburn/Nausea Aripiprazole (Aripiprazole 10 Mg Tablet) 10 mg PO DAILY [facility] Last Admin: 01/11/22 08:35 Dose: 10 mg Atorvastatin Calcium (Atorvastatin Calcium 10 Mg Tablet) 10 mg PO BEDTIME [facility] Last Admin: 01/11/22 20:07 Dose: 10 mg Calcium Polycarbophil (Calcium Polycarbophil Tablet) 2 tab PO DAILY [facility] Last Admin: 01/11/22 08:35 Dose: 2 tab Donepezil HCl (Donepezil Hcl 10 Mg Tablet) 10 mg PO DAILY [facility] Last Admin: 01/11/22 08:35 Dose: 10 mg Ferrous Sulfate (Ferrous Sulfate 324 Mg Tablet.Dr) 324 mg PO DAILY [facility] Last Admin: 01/11/22 08:35 Dose: 324 mg Hydroxyzine HCl (Hydroxyzine Hcl 25 Mg Tablet) 25 mg PO BEDTIME PRN PRN Reason: Anxiety Levothyroxine Sodium (Levothyroxine Sodium 75 Mcg Tablet) 75 mcg PO DAILY@0630 [facility] Last Admin: 01/11/22 06:22 Dose: 75 mcg Magnesium Hydroxide (Milk Of Magnesia 30 Ml Oral.Susp) 30 ml PO DAILY PRN PRN Reason: Constipation Mirtazapine (Mirtazapine 15 Mg Tablet) 15 mg PO BEDTIME [facility] Last Admin: 01/11/22 20:07 Dose: 15 mg Multivitamins/Vitamin C (Multivitamin Tablet) 1 tab PO DAILY [facility] Last Admin: 01/11/22 08:35 Dose: 1 tab Pharmacy Consult (Consult Rx Perform Med Rec) 1 each MISCELLANE ONCE PRN PRN Reason: Consult order Sertraline HCl (Sertraline Hcl 50 Mg Tablet) 150 mg PO BEDTIME [facility] Last Admin: 01/11/22 20:07 Dose: 150 mg Trazodone HCl (Trazodone Hcl 50 Mg Tablet) 50 mg PO BEDTIME PRN PRN Reason: Insomnia Allergies Allergies Allergy/AdvReac Type Severity Reaction Status Date / Time No Known Allergies Allergy Verified 12/04/21 10:54 Assessment & Plan Assessment & Plan (1) Fall: Status: Acute Code(s): W19.XXXA - Unspecified fall, initial encounter (2) Orthostatic hypotension: Status: Acute Code(s): I95.1 - Orthostatic hypotension Plan 76 yo M who is admitted to geriatric psych had an unwitnessed fall while getitng up to go to the bathroom. Pt sustained a hematoma on the forehead. Assessment and plan for 01/11/2022 Patient seen in psychiatric follow-up. Patient's mood is flat depressed lethargic reportedly eating and drinking okay able to get an of bed head CT scan did not show subdural reportedly I spent minutes with the patient and/or on the patient floor today, greater than?50% of which was spent counseling/coordinating care. Reason for contiued inpatient stay Substantial Risk for: harm to self, inability to function, rapid decompensation and med/psych decompensation
[2022-01-12] MEDS: Levothyroxine Sodium 75 MCG TABLET PO (05:52)
[2022-01-12 06:00] VITALS: BP 122/86; PULSE 82; TEMP 36.6; O2SAT 96
[2022-01-12] MEDS: ARIPiprazole 10 MG TABLET PO (08:38)
[2022-01-12] MEDS: Multivitamin TABLET 1 TAB PO (08:39)
[2022-01-12] MEDS: calcium polycarbophiL TABLET 2 TAB PO (08:39)
[2022-01-12] MEDS: Donepezil HCl 10 MG TABLET PO (08:39)
[2022-01-12] MEDS: Ferrous Sulfate 324 MG TABLET.DR PO (08:39)
[2022-01-12 18:00] VITALS: BP 129/59; PULSE 57; RESP 14; TEMP 36.3; O2SAT 94
[2022-01-12] MEDS: Atorvastatin Calcium 10 MG TABLET PO (20:38)
[2022-01-12] MEDS: Sertraline HCL 50 MG TABLET 150 MG PO (20:39)
--- NOTE | 2022-01-12 22:01 | P.PNPSI_ITS ---
Subjective Subjective Date of Service: 01/12/22 Reason For Visit: Change mental status/depression Subjective Notes: Conditional Voluntary Interim History: Patient continues on one-to-one for safety shows fatigue does get up for meals does feel sedated on medication. Denies change since recent fall head injury states he had been feeling about the same way prior Mental Status Exam Mental Status Exam Patient Appearance: Fatigued and Appropriate Patient Orientation: Person, Place and Situation Level of Consciousness: Alert Patient Behavior: Cooperative Mood Description: Withdrawn, Constricted, Depressed and Blunted Affect Description: Blunted and Flat Patient Cognition Impaired: Yes Ability to Follow Directions: Fair Speech Pattern: Clear, Appropriate and Monotone Hallucinations: None Delusions: Not Present Thought Process: Linear Thought Content: positive for Goal Oriented Depressive Symptoms: Thoughts of /Suicide Abnormal Motor Activity Signs and Symptoms: Psychomotor Retardation Judgement: Fair Diagnostics Vital Signs (24Hr): Vital Signs - 24 hr 01/12/22 06:00 01/12/22 18:00 Temperature 97.8 F 97.4 F Pulse Rate 82 57 Respiratory Rate 14 Blood Pressure 122/86 129/59 L Pulse Oximetry 96 94 Oxygen Delivery Method Room Air Room Air BMI result Body Mass Index 17.3 Labs Results: 01/09/22 19:54 01/09/22 19:54 Imaging Radiology Impressions: ITS Impressions Head CT 01/09/22 19:11 IMPRESSION: Moderate to large left scalp hematoma without calvarial fracture. No acute intracranial process seen. No left rib fracture abnormality seen. The lungs are clear Ribs X-Ray 01/09/22 19:17 IMPRESSION: Moderate to large left scalp hematoma without calvarial fracture. No acute intracranial process seen. No left rib fracture abnormality seen. The lungs are clear Medications Medications Current Medications Acetaminophen (Acetaminophen 325 Mg Tablet) 650 mg PO Q8H PRN PRN Reason: Pain Acetaminophen (Acetaminophen 325 Mg Tablet) 650 mg PO Q6H PRN PRN Reason: Headache/Pain Mild Scale (1-3) Last Admin: 01/11/22 20:06 Dose: 650 mg Al Hydroxide/Mg Hydroxide (Magnesium Hydrox/Alum Hydrox 30 Ml Oral.Susp) 30 ml PO Q6H PRN PRN Reason: Heartburn/Nausea Aripiprazole (Aripiprazole 5 Mg Tablet) 5 mg PO DAILY@1600 [facility] Last Admin: 01/12/22 18:10 Dose: Not Given Atorvastatin Calcium (Atorvastatin Calcium 10 Mg Tablet) 10 mg PO BEDTIME [facility] Last Admin: 01/12/22 20:38 Dose: 10 mg Calcium Polycarbophil (Calcium Polycarbophil Tablet) 2 tab PO DAILY [facility] Last Admin: 01/12/22 08:39 Dose: 2 tab Donepezil HCl (Donepezil Hcl 10 Mg Tablet) 10 mg PO DAILY [facility] Last Admin: 01/12/22 08:39 Dose: 10 mg Ferrous Sulfate (Ferrous Sulfate 324 Mg Tablet.Dr) 324 mg PO DAILY [facility] Last Admin: 01/12/22 08:39 Dose: 324 mg Hydroxyzine HCl (Hydroxyzine Hcl 25 Mg Tablet) 25 mg PO BEDTIME PRN PRN Reason: Anxiety Levothyroxine Sodium (Levothyroxine Sodium 75 Mcg Tablet) 75 mcg PO DAILY@0630 [facility] Last Admin: 01/12/22 05:52 Dose: 75 mcg Magnesium Hydroxide (Milk Of Magnesia 30 Ml Oral.Susp) 30 ml PO DAILY PRN PRN Reason: Constipation Multivitamins/Vitamin C (Multivitamin Tablet) 1 tab PO DAILY [facility] Last Admin: 01/12/22 08:39 Dose: 1 tab Pharmacy Consult (Consult Rx Perform Med Rec) 1 each MISCELLANE ONCE PRN PRN Reason: Consult order Sertraline HCl (Sertraline Hcl 50 Mg Tablet) 150 mg PO BEDTIME [facility] Last Admin: 01/12/22 20:39 Dose: 150 mg Trazodone HCl (Trazodone Hcl 50 Mg Tablet) 50 mg PO BEDTIME PRN PRN Reason: Insomnia Allergies Allergies Allergy/AdvReac Type Severity Reaction Status Date / Time No Known Allergies Allergy Verified 12/04/21 10:54 Assessment & Plan Assessment & Plan (1) Fall: Status: Acute Code(s): W19.XXXA - Unspecified fall, initial encounter (2) Orthostatic hypotension: Status: Acute Code(s): I95.1 - Orthostatic hypotension Plan 76 yo M who is admitted to geriatric psych had an unwitnessed fall while getitng up to go to the bathroom. Pt sustained a hematoma on the forehead. Assessment and plan for 01/11/2022 Patient seen in psychiatric follow-up. Patient's mood is flat depressed lethargic reportedly eating and drinking okay able to get an of bed head CT scan did not show subdural reportedly Assessment and plan for 01/12/2022 Patient seen in psychiatric follow-up case reviewed with treatment team. Patient remains flat somewhat lethargic a motivational. He states he does feel overmedicated. Discussed with patient lowering medication Abilify from 10-5 mg changing from morning to 17:00 patient denies thoughts of self-harm should be safe with camera system when in bed 5 minute checks for safety encourage fluids. May eventually need to consider ECT consider agent such as Provigil or stimulan ts I spent minutes with the patient and/or on the patient floor today, greater than?50% of which was spent counseling/coordinating care. Reason for contiued inpatient stay Substantial Risk for: inability to function and rapid decompensation
[2022-01-13] MEDS: Levothyroxine Sodium 75 MCG TABLET PO (05:29)
--- NOTE | 2022-01-13 05:45 | PC.NURSE ---
IV catheter discontinued at R. wrist area without ill effects.Patient tolerated procedure very well with no c/o pain.
[2022-01-13 06:00] VITALS: BP 143/65; PULSE 79; RESP 16; TEMP 36.7; O2SAT 96
[2022-01-13] MEDS: calcium polycarbophiL TABLET 2 TAB PO (08:20)
[2022-01-13] MEDS: Donepezil HCl 10 MG TABLET PO (08:20)
[2022-01-13] MEDS: Multivitamin TABLET 1 TAB PO (08:21)
[2022-01-13] MEDS: Ferrous Sulfate 324 MG TABLET.DR PO (08:21)
--- NOTE | 2022-01-13 13:58 | P.PNPSI_ITS ---
Subjective Subjective Date of Service: 01/13/22 Reason For Visit: Change mental status/depression Subjective Notes: Conditional Voluntary Interim History: The nursing staff reported that he is on 1:1 for safety. We stopped Namenda since probably he was orthostatic with this medicaiton. He was out of bed but on interview, he reported slight diziness and tired but out of his bed. Mental Status Exam Mental Status Exam Patient Appearance: Well Grooomed Patient Orientation: Person and Situation Level of Consciousness: Awake Patient Behavior: Cooperative and Passive Mood Description: Depressed Affect Description: Constricted Patient Cognition Impaired: Yes Ability to Follow Directions: Good Speech Pattern: Clear Hallucinations: None Delusions: Paranoid Ideation Thought Content: positive for [place] Judgement: Fair Diagnostics Vital Signs (24Hr): Vital Signs - 24 hr 01/12/22 18:00 01/13/22 06:00 Temperature 97.4 F 98.0 F Pulse Rate 57 79 Respiratory Rate 14 16 Blood Pressure 129/59 L 143/65 H Pulse Oximetry 94 96 Oxygen Delivery Method Room Air Room Air BMI result Body Mass Index 17.3 Labs Results: 01/09/22 19:54 01/09/22 19:54 Imaging Radiology Impressions: ITS Impressions Head CT 01/09/22 19:11 IMPRESSION: Moderate to large left scalp hematoma without calvarial fracture. No acute intracranial process seen. No left rib fracture abnormality seen. The lungs are clear Ribs X-Ray 01/09/22 19:17 IMPRESSION: Moderate to large left scalp hematoma without calvarial fracture. No acute intracranial process seen. No left rib fracture abnormality seen. The lungs are clear Medications Medications Current Medications Acetaminophen (Acetaminophen 325 Mg Tablet) 650 mg PO Q8H PRN PRN Reason: Pain Acetaminophen (Acetaminophen 325 Mg Tablet) 650 mg PO Q6H PRN PRN Reason: Headache/Pain Mild Scale (1-3) Last Admin: 01/11/22 20:06 Dose: 650 mg Al Hydroxide/Mg Hydroxide (Magnesium Hydrox/Alum Hydrox 30 Ml Oral.Susp) 30 ml PO Q6H PRN PRN Reason: Heartburn/Nausea Aripiprazole (Aripiprazole 5 Mg Tablet) 5 mg PO DAILY@1600 [facility] Last Admin: 01/12/22 18:10 Dose: Not Given Atorvastatin Calcium (Atorvastatin Calcium 10 Mg Tablet) 10 mg PO BEDTIME [facility] Last Admin: 01/12/22 20:38 Dose: 10 mg Calcium Polycarbophil (Calcium Polycarbophil Tablet) 2 tab PO DAILY [facility] Last Admin: 01/13/22 08:20 Dose: 2 tab Donepezil HCl (Donepezil Hcl 10 Mg Tablet) 10 mg PO DAILY [facility] Last Admin: 01/13/22 08:20 Dose: 10 mg Ferrous Sulfate (Ferrous Sulfate 324 Mg Tablet.) 324 mg PO DAILY [facility] Last Admin: 01/13/22 08:21 Dose: 324 mg Hydroxyzine HCl (Hydroxyzine Hcl 25 Mg Tablet) 25 mg PO BEDTIME PRN PRN Reason: Anxiety Levothyroxine Sodium (Levothyroxine Sodium 75 Mcg Tablet) 75 mcg PO DAILY@0630 [facility] Last Admin: 01/13/22 05:29 Dose: 75 mcg Magnesium Hydroxide (Milk Of Magnesia 30 Ml Oral.Susp) 30 ml PO DAILY PRN PRN Reason: Constipation Multivitamins/Vitamin C (Multivitamin Tablet) 1 tab PO DAILY [facility] Last Admin: 01/13/22 08:21 Dose: 1 tab Pharmacy Consult (Consult Rx Perform Med Rec) 1 each MISCELLANE ONCE PRN PRN Reason: Consult order Sertraline HCl (Sertraline Hcl 50 Mg Tablet) 150 mg PO BEDTIME [facility] Last Admin: 01/12/22 20:39 Dose: 150 mg Trazodone HCl (Trazodone Hcl 50 Mg Tablet) 50 mg PO BEDTIME PRN PRN Reason: Insomnia Allergies Allergies Allergy/AdvReac Type Severity Reaction Status Date / Time No Known Allergies Allergy Verified 12/04/21 10:54 Assessment & Plan Assessment & Plan (1) Fall: Status: Acute Code(s): W19.XXXA - Unspecified fall, initial encounter (2) Orthostatic hypotension: Status: Acute Code(s): I95.1 - Orthostatic hypotension Plan 76 yo M who is admitted to geriatric psych had an unwitnessed fall while getitng up to go to the bathroom. Pt sustained a hematoma on the forehead. Assessment and plan for 01/11/2022 Patient seen in psychiatric follow-up. Patient's mood is flat depressed lethargic reportedly eating and drinking okay able to get an of bed head CT scan did not show subdural reportedly Assessment and plan for 01/12/2022 Patient seen in psychiatric follow-up case reviewed with treatment team. Patient remains flat somewhat lethargic a motivational. He states he does feel overmedicated. Discussed with patient lowering medication Abilify from 10-5 mg changing from morning to 17:00 patient denies thoughts of self-harm should be safe with camera system when in bed 5 minute checks for safety encourage fluids. May eventually need to consider ECT consider agent such as Provigil or stimulants I spent ___20___ minutes with the patient and/or on the patient floor today, greater than?50% of which was spent counseling/coordinating care. Reason for contiued inpatient stay Substantial Risk for: harm to self, rapid decompensation and med/psych decompensation
[2022-01-13] MEDS: ARIPiprazole 5 MG TABLET PO (16:43)
[2022-01-13 18:00] VITALS: BP 118/56; PULSE 73; RESP 16; TEMP 36.9; O2SAT 94
--- NOTE | 2022-01-13 19:55 | PC.NURSE ---
Late entry for 01/09/22 20:00h- The of patient called and was updated regarding the fall. said she will visit the patient in the morning.
[2022-01-13] MEDS: Sertraline HCL 50 MG TABLET 150 MG PO (20:25)
[2022-01-13] MEDS: Atorvastatin Calcium 10 MG TABLET PO (20:25)
[2022-01-14] MEDS: Levothyroxine Sodium 75 MCG TABLET PO (05:46)
[2022-01-14 07:30] VITALS: BP 140/65; PULSE 66; RESP 14; TEMP 36.7; O2SAT 95
[2022-01-14] MEDS: Ferrous Sulfate 324 MG TABLET.DR PO (08:18)
[2022-01-14] MEDS: Donepezil HCl 10 MG TABLET PO (08:18)
[2022-01-14] MEDS: Multivitamin TABLET 1 TAB PO (08:18)
[2022-01-14] MEDS: calcium polycarbophiL TABLET 2 TAB PO (08:18)
[2022-01-14] MEDS: ARIPiprazole 5 MG TABLET PO (15:57)
--- NOTE | 2022-01-14 16:20 | HO.PSYCHPN ---
Subjective Subjective Date of Service: 01/14/22 Reason For Visit: Change mental status/depression Subjective Notes: Conditional Voluntary Interim History: the nursing staff reported the patient has been compliant with treatment but he looks still dysphoric. He attends to groups but he does not respond or engage with peers or staff. On interview the patient denies new symptoms he looks internally preoccupied with severe lack of energy. Mental Status Exam Mental Status Exam Patient Appearance: Well Grooomed Patient Orientation: Person and Situation Level of Consciousness: Awake Patient Behavior: Dependent and Passive Mood Description: Withdrawn Affect Description: Constricted Ability to Follow Directions: Good Speech Pattern: Clear Hallucinations: None Delusions: Paranoid Ideation Thought Process: Distracted Thought Content: positive for [employer] Judgement: Fair Diagnostics Vital Signs (24Hr): Vital Signs - 24 hr 01/13/22 18:00 01/14/22 07:30 Temperature 98.5 F 98.0 F Pulse Rate 73 66 Respiratory Rate 16 14 Blood Pressure 118/56 L 140/65 H Pulse Oximetry 94 95 Oxygen Delivery Method Room Air Room Air BMI result Body Mass Index 17.3 Labs Results: 01/09/22 19:54 01/09/22 19:54 Imaging Radiology Impressions: ITS Impressions Head CT 01/09/22 19:11 IMPRESSION: Moderate to large left scalp hematoma without calvarial fracture. No acute intracranial process seen. No left rib fracture abnormality seen. The lungs are clear Ribs X-Ray 01/09/22 19:17 IMPRESSION: Moderate to large left scalp hematoma without calvarial fracture. No acute intracranial process seen. No left rib fracture abnormality seen. The lungs are clear Medications Medications Current Medications Acetaminophen (Acetaminophen 325 Mg Tablet) 650 mg PO Q8H PRN PRN Reason: Pain Acetaminophen (Acetaminophen 325 Mg Tablet) 650 mg PO Q6H PRN PRN Reason: Headache/Pain Mild Scale (1-3) Last Admin: 01/11/22 20:06 Dose: 650 mg Al Hydroxide/Mg Hydroxide (Magnesium Hydrox/Alum Hydrox 30 Ml Oral.Susp) 30 ml PO Q6H PRN PRN Reason: Heartburn/Nausea Aripiprazole (Aripiprazole 5 Mg Tablet) 5 mg PO DAILY@1600 [facility] Last Admin: 01/14/22 15:57 Dose: 5 mg Atorvastatin Calcium (Atorvastatin Calcium 10 Mg Tablet) 10 mg PO BEDTIME [facility] Last Admin: 01/13/22 20:25 Dose: 10 mg Calcium Polycarbophil (Calcium Polycarbophil Tablet) 2 tab PO DAILY [facility] Last Admin: 01/14/22 08:18 Dose: 2 tab Donepezil HCl (Donepezil Hcl 10 Mg Tablet) 10 mg PO DAILY [facility] Last Admin: 01/14/22 08:18 Dose: 10 mg Ferrous Sulfate (Ferrous Sulfate 324 Mg Tablet.) 324 mg PO DAILY [facility] Last Admin: 01/14/22 08:18 Dose: 324 mg Hydroxyzine HCl (Hydroxyzine Hcl 25 Mg Tablet) 25 mg PO BEDTIME PRN PRN Reason: Anxiety Levothyroxine Sodium (Levothyroxine Sodium 75 Mcg Tablet) 75 mcg PO DAILY@0630 [facility] Last Admin: 01/14/22 05:46 Dose: 75 mcg Magnesium Hydroxide (Milk Of Magnesia 30 Ml Oral.Susp) 30 ml PO DAILY PRN PRN Reason: Constipation Multivitamins/Vitamin C (Multivitamin Tablet) 1 tab PO DAILY [facility] Last Admin: 01/14/22 08:18 Dose: 1 tab Pharmacy Consult (Consult Rx Perform Med Rec) 1 each MISCELLANE ONCE PRN PRN Reason: Consult order Sertraline HCl (Sertraline Hcl 50 Mg Tablet) 150 mg PO BEDTIME [facility] Last Admin: 01/13/22 20:25 Dose: 150 mg Trazodone HCl (Trazodone Hcl 50 Mg Tablet) 50 mg PO BEDTIME PRN PRN Reason: Insomnia Allergies Allergies Allergy/AdvReac Type Severity Reaction Status Date / Time No Known Allergies Allergy Verified 12/04/21 10:54 Assessment & Plan Assessment & Plan (1) Fall: Status: Acute Code(s): W19.XXXA - Unspecified fall, initial encounter (2) Orthostatic hypotension: Status: Acute Code(s): I95.1 - Orthostatic hypotension Plan 76 yo M who is admitted to geriatric psych had an unwitnessed fall while getitng up to go to the bathroom. Pt sustained a hematoma on the forehead. Assessment and plan for 01/11/2022 Patient seen in psychiatric follow-up. Patient's mood is flat depressed lethargic reportedly eating and drinking okay able to get an of bed head CT scan did not show subdural reportedly Assessment and plan for 01/12/2022 Patient seen in psychiatric follow-up case reviewed with treatment team. Patient remains flat somewhat lethargic a motivational. He states he does feel overmedicated. Discussed with patient lowering medication Abilify from 10-5 mg changing from morning to 17:00 patient denies thoughts of self-harm should be safe with camera system when in bed 5 minute checks for safety encourage fluids. May eventually need to consider ECT consider agent such as Provigil or stimulants I spent ___20___ minutes with the patient and/or on the patient floor today, greater than?50% of which was spent counseling/coordinating care. Reason for contiued inpatient stay Substantial Risk for: inability to function, rapid decompensation and med/psych decompensation
[2022-01-14 20:45] VITALS: BP 121/56; PULSE 68; RESP 16; TEMP 37.5; O2SAT 94
[2022-01-14] MEDS: Atorvastatin Calcium 10 MG TABLET PO (21:15)
[2022-01-14] MEDS: Sertraline HCL 50 MG TABLET 150 MG PO (21:15)
--- NOTE | 2022-01-15 | ECG_ITS ---
Test Reason : ect clearence Blood Pressure : / mmHG Vent. Rate : 064 BPM Atrial Rate : 064 BPM P-R Int : 150 ms QRS Dur : 114 ms QT Int : 464 ms P-R-T Axes : 086 088 064 degrees QTc Int : 478 ms Normal sinus rhythm Incomplete right bundle branch block Borderline ECG When compared with ECG of 01-JAN-2022 14:25, No significant change was found Referred By: Jose Knapp Electronically Signed By:MERE CROFT
[2022-01-15] MEDS: Levothyroxine Sodium 75 MCG TABLET PO (06:25)
[2022-01-15 07:30] VITALS: BP 131/60; PULSE 60; RESP 16; TEMP 37.2; O2SAT 96
[2022-01-15] MEDS: calcium polycarbophiL TABLET 2 TAB PO (08:44)
[2022-01-15] MEDS: Multivitamin TABLET 1 TAB PO (08:45)
[2022-01-15] MEDS: Donepezil HCl 10 MG TABLET PO (08:45)
[2022-01-15] MEDS: Ferrous Sulfate 324 MG TABLET.DR PO (08:46)
--- NOTE | 2022-01-15 12:59 | MHC.CLN ---
F/U DIET=REGULAR. ENSURE BID PROVIDES ADDITIONAL 700 KCALS, 40 GRAMS PROTEIN. STAFF REPORTS THAT PATIENT EATS WELL. RD TO FOLLOW WEEKLY.
--- NOTE | 2022-01-15 14:29 | HO.PSYCHPN ---
Subjective Subjective Date of Service: 01/15/22 Reason For Visit: Change mental status/depression Subjective Notes: Conditional Voluntary Interim History: the nursing staff reported the patient has have orthostatic symptoms, he reported mild dizziness. He slept well last night and he has been eating well but he remains very dysphoric with lack of energy. Today we had a family meeting with his and daughter and we explained that he has failed to medication management. We explore the possibility of ECT and they like it this option. the patient show minimal affect in the meeting. Mental Status Exam Mental Status Exam Patient Appearance: Well Grooomed Patient Orientation: Person and Situation Level of Consciousness: Awake Mood Description: Withdrawn Affect Description: Flat Patient Cognition Impaired: Yes Ability to Follow Directions: Good Speech Pattern: Clear Hallucinations: None Delusions: Not Present Thought Process: Linear Thought Content: positive for [place] and positive for Poverty of Content Judgement: Fair Diagnostics Vital Signs (24Hr): Vital Signs - 24 hr 01/14/22 20:45 01/15/22 07:30 Temperature 99.5 F 99.0 F Pulse Rate 68 60 Respiratory Rate 16 16 Blood Pressure 121/56 L 131/60 Pulse Oximetry 94 96 Oxygen Delivery Method Room Air Room Air BMI result Body Mass Index 17.3 Labs Results: 01/09/22 19:54 01/09/22 19:54 Imaging Radiology Impressions: ITS Impressions Head CT 01/09/22 19:11 IMPRESSION: Moderate to large left scalp hematoma without calvarial fracture. No acute intracranial process seen. No left rib fracture abnormality seen. The lungs are clear Ribs X-Ray 01/09/22 19:17 IMPRESSION: Moderate to large left scalp hematoma without calvarial fracture. No acute intracranial process seen. No left rib fracture abnormality seen. The lungs are clear Medications Medications Current Medications Acetaminophen (Acetaminophen 325 Mg Tablet) 650 mg PO Q8H PRN PRN Reason: Pain Acetaminophen (Acetaminophen 325 Mg Tablet) 650 mg PO Q6H PRN PRN Reason: Headache/Pain Mild Scale (1-3) Last Admin: 01/11/22 20:06 Dose: 650 mg Al Hydroxide/Mg Hydroxide (Magnesium Hydrox/Alum Hydrox 30 Ml Oral.Susp) 30 ml PO Q6H PRN PRN Reason: Heartburn/Nausea Aripiprazole (Aripiprazole 5 Mg Tablet) 5 mg PO DAILY@1600 [facility] Last Admin: 01/14/22 15:57 Dose: 5 mg Atorvastatin Calcium (Atorvastatin Calcium 10 Mg Tablet) 10 mg PO BEDTIME [facility] Last Admin: 01/14/22 21:15 Dose: 10 mg Calcium Polycarbophil (Calcium Polycarbophil Tablet) 2 tab PO DAILY [facility] Last Admin: 01/15/22 08:44 Dose: 2 tab Donepezil HCl (Donepezil Hcl 10 Mg Tablet) 10 mg PO DAILY [facility] Last Admin: 01/15/22 08:45 Dose: 10 mg Ferrous Sulfate (Ferrous Sulfate 324 Mg Tablet.Dr) 324 mg PO DAILY [facility] Last Admin: 01/15/22 08:46 Dose: 324 mg Hydroxyzine HCl (Hydroxyzine Hcl 25 Mg Tablet) 25 mg PO BEDTIME PRN PRN Reason: Anxiety Levothyroxine Sodium (Levothyroxine Sodium 75 Mcg Tablet) 75 mcg PO DAILY@0630 [facility] Last Admin: 01/15/22 06:25 Dose: 75 mcg Magnesium Hydroxide (Milk Of Magnesia 30 Ml Oral.Susp) 30 ml PO DAILY PRN PRN Reason: Constipation Multivitamins/Vitamin C (Multivitamin Tablet) 1 tab PO DAILY [facility] Last Admin: 01/15/22 08:45 Dose: 1 tab Pharmacy Consult (Consult Rx Perform Med Rec) 1 each MISCELLANE ONCE PRN PRN Reason: Consult order Sertraline HCl (Sertraline Hcl 50 Mg Tablet) 150 mg PO BEDTIME [facility] Last Admin: 01/14/22 21:15 Dose: 150 mg Trazodone HCl (Trazodone Hcl 50 Mg Tablet) 50 mg PO BEDTIME PRN PRN Reason: Insomnia Allergies Allergies Allergy/AdvReac Type Severity Reaction Status Date / Time No Known Allergies Allergy Verified 12/04/21 10:54 Assessment & Plan Assessment & Plan (1) Fall: Status: Acute Code(s): W19.XXXA - Unspecified fall, initial encounter (2) Orthostatic hypotension: Status: Acute Code(s): I95.1 - Orthostatic hypotension Plan 76 yo M who is admitted to geriatric psych had an unwitnessed fall while getitng up to go to the bathroom. Pt sustained a hematoma on the forehead. Plan 1. Continue same regimen. 2. EKG for possibility of ECT. 3.Psychoeducation into treatment options. I spent ___20___ minutes with the patient and/or on the patient floor today, greater than?50% of which was spent counseling/coordinating care. Reason for contiued inpatient stay Substantial Risk for: inability to function, rapid decompensation and med/psych decompensation
[2022-01-15] MEDS: ARIPiprazole 5 MG TABLET PO (16:44)
[2022-01-15 18:00] VITALS: BP 113/54; PULSE 63; RESP 12; TEMP 37.2; O2SAT 97
[2022-01-15] MEDS: Sertraline HCL 50 MG TABLET 150 MG PO (19:51)
[2022-01-15] MEDS: Atorvastatin Calcium 10 MG TABLET PO (19:53)
[2022-01-16] MEDS: Levothyroxine Sodium 75 MCG TABLET PO (05:24)
[2022-01-16] MEDS: Donepezil HCl 10 MG TABLET PO (09:13)
[2022-01-16] MEDS: calcium polycarbophiL TABLET 2 TAB PO (09:13)
[2022-01-16] MEDS: Multivitamin TABLET 1 TAB PO (09:13)
[2022-01-16] MEDS: Ferrous Sulfate 324 MG TABLET.DR PO (09:14)
--- NOTE | 2022-01-16 15:03 | HO.HSGERICON ---
History of Present Illness Data of Consult Service Date: 01/16/22 Requesting physician: Jose Knapp Primary Care Provider: MD GELA Dickinson Reason for consult: orthostasis patient known to hospitalist service ( seen last year 04/10 and 01/09 (after fall). 75-year-old male with history of depression,cognitive impairment, HLD, hypertension, hypothyroidism, prostate cancer status post the radiation, also found possible orthostasis and had a fall(01/09)-ct head neg except scalp hemtoma-which is already improving(absorbing): Hospitalist consult was called because of ECT clearance. Patient denies any new complaints-feel said otherwise denies any chest pain or shortness of breath or abdominal pain or fever or chills or cough or phlegm. Denies any weakness or numbness or headache or any blurry vision. Has ecchymosis around the left eye. Review of Systems Review of Systems: as above. ENT: Reports Normal hearing present Neurologic: Reports Normal hearing present [facility] Medical History Depression Depression HLD (hyperlipidemia) HTN (hypertension) Hypothyroidism Prostate cancer Family History Other Prostate cancer Pertinent family history: does not remember any family hx. Surgical History H/O prostatectomy History of hernia surgery Social History Household Members: Spouse Housing: House Do you presently have visiting nurse or other home services: No Patient Tobacco Use Status: Former Tobacco user Tobacco use type: Cigarette Cigarette Packs Per Day: 1 Cigarettes Per Day: 20.0 Smoked in Last 30 Days: No e-Cigarette/Vaping Use: Never Used Patient Interested in Nicotine Replacement: No Patient Given Instructions on How to Stop Smoking: No Second Hand Smoke Exposure: No Use of substances other than those prescribed or required for medical reasons: No Currently Displaying Signs/Symptoms of Drug Intoxication Withdrawal: No Any prior treatment program specific to substance use: No Have you been hit, kicked, punched, or otherwise hurt by someone within the past year? 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) Sexual orientation: Straight/Heterosexual Meds Allergies Allergy/AdvReac Type Severity Reaction Status Date / Time No Known Allergies Allergy Verified 12/04/21 10:54 Active Medications: Current Medications Acetaminophen (Acetaminophen 325 Mg Tablet) 650 mg PO Q8H PRN PRN Reason: Pain Acetaminophen (Acetaminophen 325 Mg Tablet) 650 mg PO Q6H PRN PRN Reason: Headache/Pain Mild Scale (1-3) Last Admin: 01/11/22 20:06 Dose: 650 mg Al Hydroxide/Mg Hydroxide (Magnesium Hydrox/Alum Hydrox 30 Ml Oral.Susp) 30 ml PO Q6H PRN PRN Reason: Heartburn/Nausea Aripiprazole (Aripiprazole 5 Mg Tablet) 5 mg PO DAILY@1600 [facility] Last Admin: 01/15/22 16:44 Dose: 5 mg Atorvastatin Calcium (Atorvastatin Calcium 10 Mg Tablet) 10 mg PO BEDTIME [facility] Last Admin: 01/15/22 19:53 Dose: 10 mg Calcium Polycarbophil (Calcium Polycarbophil Tablet) 2 tab PO DAILY [facility] Last Admin: 01/16/22 09:13 Dose: 2 tab Donepezil HCl (Donepezil Hcl 10 Mg Tablet) 10 mg PO DAILY [facility] Last Admin: 01/16/22 09:13 Dose: 10 mg Ferrous Sulfate (Ferrous Sulfate 324 Mg Tablet.Dr) 324 mg PO DAILY [facility] Last Admin: 01/16/22 09:14 Dose: 324 mg Hydroxyzine HCl (Hydroxyzine Hcl 25 Mg Tablet) 25 mg PO BEDTIME PRN PRN Reason: Anxiety Levothyroxine Sodium (Levothyroxine Sodium 75 Mcg Tablet) 75 mcg PO DAILY@0630 [facility] Last Admin: 01/16/22 05:24 Dose: 75 mcg Magnesium Hydroxide (Milk Of Magnesia 30 Ml Oral.Susp) 30 ml PO DAILY PRN PRN Reason: Constipation Multivitamins/Vitamin C (Multivitamin Tablet) 1 tab PO DAILY [facility] Last Admin: 01/16/22 09:13 Dose: 1 tab Pharmacy Consult (Consult Rx Perform Med Rec) 1 each MISCELLANE ONCE PRN PRN Reason: Consult order Sertraline HCl (Sertraline Hcl 50 Mg Tablet) 150 mg PO BEDTIME [facility] Last Admin: 01/15/22 19:51 Dose: 150 mg Trazodone HCl (Trazodone Hcl 50 Mg Tablet) 50 mg PO BEDTIME PRN PRN Reason: Insomnia Home Medications Medication Instructions Recorded Confirmed Last Taken Type acetaminophen 650 mg 650 mg PO Q8H PRN Pain 04/04/21 12/31/21 12/29/21 History tablet,extended release sertraline 100 mg tablet 100 mg PO BEDTIME 12/04/21 12/31/21 12/29/21 History aripiprazole 10 mg tablet 1 tab PO DAILY 12/31/21 12/31/21 12/29/21 History donepezil 10 mg tablet 1 tab PO DAILY 12/31/21 12/31/21 12/29/21 History ferrous sulfate 325 mg (65 mg 325 mg PO DAILY 12/31/21 12/31/21 12/29/21 History iron) tablet mirtazapine 15 mg tablet 1 tab PO BEDTIME 12/31/21 12/31/21 12/29/21 History Results Labs CBC and Chem 7: 01/09/22 19:54 01/09/22 19:54 ECG Attestation: I personally reviewed and interpreted this ECG as follows: (nsr with incomplete rbbb) Assessment and Plan (1) Orthostatic hypotension: Status: Acute Plan 76-year-old male who came to the hospital getting treatment for depression needed ECT clearance. 1. deprssion -needs ect ekg seems fine CT head negative, patient does not have any neurological symptoms currently. Walking with a walker no dizziness. No obvious contraindication to proceed to ECT at this time, advised to be careful on with the ECT electrodes when put over the hematoma area. 2. Orthostatic hypotension: Not on any medications Keenan stockings PT evaluation when possible. Avoid psychotic medications and blood pressure medication that can cause orthostasis. 3. Hypothyroidism: TSH is borderline elevated, free T4 is normal Continue levothyroxine Above management discussed with the psych provider in detail length, please please call us for any questions. Physical Exam Vital Signs: Last Vital Signs Temp 99 F 01/15/22 18:00 Pulse 63 01/15/22 18:00 Resp 12 01/15/22 18:00 BP 113/54 L 01/15/22 18:00 Pulse Ox 97 01/15/22 18:00 O2 Del Method 01/15/22 18:00 BMI result Body Mass Index 17.3 Appearance: Alert.? Oriented X3.? generalised weak. Eyes: Pupils equal, round and reactive to light.? Sclera nonicteric.? eccymosis around left eye and frontal left side swellin( which seems improving) ENT: Pharynx normal.? Moist mucous membranes. cvs: rrr, [id number] . res: clear to auscultation ,no rhonchii or wheezing abd: no rebound or guarding ,nt, bs present. ext pulses present , no cyanosis ,walked with walker fine . neuro: axo3 , nonfocal. Eyes Pupils: Equal, round and reactive pupils present Neuro Cranial nerves: Yes CN's II-XII intact bilaterally, Yes Facial sensation intact/muscles of mastication intact, Yes Intact sense of smell present, Yes Equal, round and reactive pupils present, Yes Normal accommodation reflex present, Yes Bilaterally intact EOM present, Yes Nystagmus not present, Yes Normal facial strength present, Yes Midline tongue present, Yes Normal gag reflex present, Yes Symmetric palate elevation present, Yes Normal hearing present, Yes Ability to bilaterally rotate head present and Yes Ability to bilaterally elevate shoulders present
[2022-01-16] MEDS: ARIPiprazole 5 MG TABLET PO (16:05)
--- NOTE | 2022-01-16 16:37 | P.PNPSI_ITS ---
Subjective Subjective Date of Service: 01/16/22 Reason For Visit: Change mental status/depression Subjective Notes: Conditional Voluntary Interim History: the patient reported that he is feeling fine but he looks with lack of energy. The nursing staff reported fully compliant with treatment but he spends most of the time in his room. Today, I called the hospitalist to ECT clearance and so far he is ready for ECT. Mental Status Exam Mental Status Exam Patient Appearance: Well Grooomed Patient Orientation: Person, Place and Situation Level of Consciousness: Awake Patient Behavior: Cooperative Mood Description: Withdrawn Affect Description: Constricted Patient Cognition Impaired: Yes Ability to Follow Directions: Fair Speech Pattern: Clear Hallucinations: None Delusions: Not Present Thought Process: Distracted and Evasive Thought Content: positive for [place] Judgement: Fair Diagnostics Vital Signs (24Hr): Vital Signs - 24 hr 01/15/22 18:00 Temperature 99 F Pulse Rate 63 Respiratory Rate 12 Blood Pressure 113/54 L Pulse Oximetry 97 Oxygen Delivery Method Room Air BMI result Body Mass Index 17.3 Labs Results: 01/09/22 19:54 01/09/22 19:54 Imaging Radiology Impressions: ITS Impressions Head CT 01/09/22 19:11 IMPRESSION: Moderate to large left scalp hematoma without calvarial fracture. No acute intracranial process seen. No left rib fracture abnormality seen. The lungs are clear Ribs X-Ray 01/09/22 19:17 IMPRESSION: Moderate to large left scalp hematoma without calvarial fracture. No acute intracranial process seen. No left rib fracture abnormality seen. The lungs are clear Medications Medications Current Medications Acetaminophen (Acetaminophen 325 Mg Tablet) 650 mg PO Q8H PRN PRN Reason: Pain Acetaminophen (Acetaminophen 325 Mg Tablet) 650 mg PO Q6H PRN PRN Reason: Headache/Pain Mild Scale (1-3) Last Admin: 01/11/22 20:06 Dose: 650 mg Al Hydroxide/Mg Hydroxide (Magnesium Hydrox/Alum Hydrox 30 Ml Oral.Susp) 30 ml PO Q6H PRN PRN Reason: Heartburn/Nausea Aripiprazole (Aripiprazole 5 Mg Tablet) 5 mg PO DAILY@1600 [facility] Last Admin: 01/16/22 16:05 Dose: 5 mg Atorvastatin Calcium (Atorvastatin Calcium 10 Mg Tablet) 10 mg PO BEDTIME [facility] Last Admin: 01/15/22 19:53 Dose: 10 mg Calcium Polycarbophil (Calcium Polycarbophil Tablet) 2 tab PO DAILY [facility] Last Admin: 01/16/22 09:13 Dose: 2 tab Donepezil HCl (Donepezil Hcl 10 Mg Tablet) 10 mg PO DAILY [facility] Last Admin: 01/16/22 09:13 Dose: 10 mg Ferrous Sulfate (Ferrous Sulfate 324 Mg Tablet.Dr) 324 mg PO DAILY [facility] Last Admin: 01/16/22 09:14 Dose: 324 mg Hydroxyzine HCl (Hydroxyzine Hcl 25 Mg Tablet) 25 mg PO BEDTIME PRN PRN Reason: Anxiety Levothyroxine Sodium (Levothyroxine Sodium 75 Mcg Tablet) 75 mcg PO DAILY@629 [facility] Last Admin: 01/16/22 05:24 Dose: 75 mcg Magnesium Hydroxide (Milk Of Magnesia 30 Ml Oral.Susp) 30 ml PO DAILY PRN PRN Reason: Constipation Multivitamins/Vitamin C (Multivitamin Tablet) 1 tab PO DAILY [facility] Last Admin: 01/16/22 09:13 Dose: 1 tab Pharmacy Consult (Consult Rx Perform Med Rec) 1 each MISCELLANE ONCE PRN PRN Reason: Consult order Sertraline HCl (Sertraline Hcl 50 Mg Tablet) 150 mg PO BEDTIME [facility] Last Admin: 01/15/22 19:51 Dose: 150 mg Trazodone HCl (Trazodone Hcl 50 Mg Tablet) 50 mg PO BEDTIME PRN PRN Reason: Insomnia Allergies Allergies Allergy/AdvReac Type Severity Reaction Status Date / Time No Known Allergies Allergy Verified 12/04/21 10:54 Assessment & Plan Assessment & Plan (1) Orthostatic hypotension: Status: Acute Code(s): I95.1 - Orthostatic hypotension Plan 76-year-old male who came to the hospital getting treatment for depression needed ECT clearance. 1. deprssion -needs ect ekg seems fine CT head negative, patient does not have any neurological symptoms currently. Walking with a walker no dizziness. No obvious contraindication to proceed to ECT at this time, advised to be careful on with the ECT electrodes when put over the hematoma area. 2. Orthostatic hypotension: Not on any medications Keenan stockings PT evaluation when possible. Avoid psychotic medications and blood pressure medication that can cause orthos tasis. 3. Hypothyroidism: TSH is borderline elevated, free T4 is normal Continue levothyroxine Above management discussed with the psych provider in detail length, please please call us for any questions. I spent __20____ minutes with the patient and/or on the patient floor today, greater than?50% of which was spent counseling/coordinating care. Reason for contiued inpatient stay Substantial Risk for: inability to function, rapid decompensation and med/psych decompensation
[2022-01-16 19:00] VITALS: BP 136/64; PULSE 92; RESP 16; TEMP 37.4; O2SAT 95
[2022-01-16] MEDS: Atorvastatin Calcium 10 MG TABLET PO (19:40)
[2022-01-16] MEDS: Sertraline HCL 50 MG TABLET 150 MG PO (19:41)
[2022-01-17] MEDS: Levothyroxine Sodium 75 MCG TABLET PO (05:46)
[2022-01-17 07:50] VITALS: BP 137/63; PULSE 61; RESP 16; TEMP 36.8; O2SAT 94
[2022-01-17] MEDS: Donepezil HCl 10 MG TABLET PO (08:35)
[2022-01-17] MEDS: calcium polycarbophiL TABLET 2 TAB PO (08:35)
[2022-01-17] MEDS: Ferrous Sulfate 324 MG TABLET.DR PO (08:35)
[2022-01-17] MEDS: Multivitamin TABLET 1 TAB PO (08:35)
--- NOTE | 2022-01-17 13:54 | P.PNPSI_ITS ---
Subjective Subjective Date of Service: 01/17/22 Reason For Visit: Change mental status/depression Subjective Notes: Conditional Voluntary Interim History: the nursing staff reported the patient has been compliant with treatment but he remains seclusive mostly in his room with lack of energy. On interview the patient reports that he feels tired, his appetite is slightly better and he is sleeping a little more than usual. Mental Status Exam Mental Status Exam Patient Appearance: Well Grooomed Patient Orientation: Person and Situation Level of Consciousness: Awake Patient Behavior: Guarded and Passive Mood Description: Withdrawn Affect Description: Constricted Patient Cognition Impaired: Yes Ability to Follow Directions: Good Speech Pattern: Clear Hallucinations: None Delusions: Not Present Thought Process: Evasive and Slowed Thinking Thought Content: positive for [place] Judgement: Fair Diagnostics Vital Signs (24Hr): Vital Signs - 24 hr 01/16/22 19:00 01/17/22 07:50 Temperature 99.4 F 98.3 F Pulse Rate 92 61 Respiratory Rate 16 16 Blood Pressure 136/64 137/63 Pulse Oximetry 95 94 Oxygen Delivery Method Room Air BMI result Body Mass Index 17.3 Labs Results: 01/09/22 19:54 01/09/22 19:54 Imaging Radiology Impressions: ITS Impressions Head CT 01/09/22 19:11 IMPRESSION: Moderate to large left scalp hematoma without calvarial fracture. No acute intracranial process seen. No left rib fracture abnormality seen. The lungs are clear Ribs X-Ray 01/09/22 19:17 IMPRESSION: Moderate to large left scalp hematoma without calvarial fracture. No acute intracranial process seen. No left rib fracture abnormality seen. The lungs are clear Medications Medications Current Medications Acetaminophen (Acetaminophen 325 Mg Tablet) 650 mg PO Q8H PRN PRN Reason: Pain Acetaminophen (Acetaminophen 325 Mg Tablet) 650 mg PO Q6H PRN PRN Reason: Headache/Pain Mild Scale (1-3) Last Admin: 01/11/22 20:06 Dose: 650 mg Al Hydroxide/Mg Hydroxide (Magnesium Hydrox/Alum Hydrox 30 Ml Oral.Susp) 30 ml PO Q6H PRN PRN Reason: Heartburn/Nausea Aripiprazole (Aripiprazole 5 Mg Tablet) 5 mg PO DAILY@1600 [facility] Last Admin: 01/16/22 16:05 Dose: 5 mg Atorvastatin Calcium (Atorvastatin Calcium 10 Mg Tablet) 10 mg PO BEDTIME [facility] Last Admin: 01/16/22 19:40 Dose: 10 mg Calcium Polycarbophil (Calcium Polycarbophil Tablet) 2 tab PO DAILY [facility] Last Admin: 01/17/22 08:35 Dose: 2 tab Donepezil HCl (Donepezil Hcl 10 Mg Tablet) 10 mg PO DAILY [facility] Last Admin: 01/17/22 08:35 Dose: 10 mg Ferrous Sulfate (Ferrous Sulfate 324 Mg Tablet.Dr) 324 mg PO DAILY [facility] Last Admin: 01/17/22 08:35 Dose: 324 mg Hydroxyzine HCl (Hydroxyzine Hcl 25 Mg Tablet) 25 mg PO BEDTIME PRN PRN Reason: Anxiety Levothyroxine Sodium (Levothyroxine Sodium 75 Mcg Tablet) 75 mcg PO DAILY@0630 [facility] Last Admin: 01/17/22 05:46 Dose: 75 mcg Magnesium Hydroxide (Milk Of Magnesia 30 Ml Oral.Susp) 30 ml PO DAILY PRN PRN Reason: Constipation Multivitamins/Vitamin C (Multivitamin Tablet) 1 tab PO DAILY [facility] Last Admin: 01/17/22 08:35 Dose: 1 tab Pharmacy Consult (Consult Rx Perform Med Rec) 1 each MISCELLANE ONCE PRN PRN Reason: Consult order Sertraline HCl (Sertraline Hcl 50 Mg Tablet) 150 mg PO BEDTIME [facility] Last Admin: 01/16/22 19:41 Dose: 150 mg Trazodone HCl (Trazodone Hcl 50 Mg Tablet) 50 mg PO BEDTIME PRN PRN Reason: Insomnia Allergies Allergies Allergy/AdvReac Type Severity Reaction Status Date / Time No Known Allergies Allergy Verified 12/04/21 10:54 Assessment & Plan Assessment & Plan (1) Orthostatic hypotension: Status: Acute Code(s): I95.1 - Orthostatic hypotension Plan 76-year-old male who came to the hospital getting treatment for depression needed ECT clearance. 1. deprssion -needs ect ekg seems fine CT head negative, patient does not have any neurological symptoms currently. Wa lking with a walker no dizziness. No obvious contraindication to proceed to ECT at this time, advised to be careful on with the ECT electrodes when put over the hematoma area. 2. Orthostatic hypotension: Not on any medications Keenan stockings PT evaluation when possible. Avoid psychotic medications and blood pressure medication that can cause orthostasis. 3. Hypothyroidism: TSH is borderline elevated, free T4 is normal Continue levothyroxine Above management discussed with the psych provider in detail length, please please call us for any questions. I spent __20____ minutes with the patient and/or on the patient floor today, greater than?50% of which was spent counseling/coordinating care. Reason for contiued inpatient stay Substantial Risk for: inability to function, rapid decompensation and med/psych decompensation
[2022-01-17] MEDS: ARIPiprazole 5 MG TABLET PO (16:57)
[2022-01-17 17:30] VITALS: BMI 17.9
[2022-01-17] MEDS: Sertraline HCL 50 MG TABLET 150 MG PO (20:11)
[2022-01-17] MEDS: Atorvastatin Calcium 10 MG TABLET PO (20:11)
[2022-01-17 20:14] VITALS: BP 99/42; PULSE 76; RESP 16; TEMP 35.9; O2SAT 94
[2022-01-18] MEDS: Levothyroxine Sodium 75 MCG TABLET PO (06:27)
[2022-01-18 08:40] VITALS: BP 136/65; PULSE 55; RESP 14; TEMP 36.8; O2SAT 93
[2022-01-18] MEDS: Donepezil HCl 10 MG TABLET PO (08:58)
[2022-01-18] MEDS: Multivitamin TABLET 1 TAB PO (08:58)
[2022-01-18] MEDS: Ferrous Sulfate 324 MG TABLET.DR PO (08:58)
[2022-01-18] MEDS: calcium polycarbophiL TABLET 2 TAB PO (08:58)
[2022-01-18] MEDS: ARIPiprazole 5 MG TABLET PO (16:52)
--- NOTE | 2022-01-18 18:25 | PC.NURSE ---
Patient continues to exhibit excessive daytime sleepiness. Visible on the unit for meals. Is easily directed to dining area from bed. Interacts minimally with peers. Appears to be extending amount of time staying out of room after meals. Using walker for ambulation and is on camera for safety while asleep. When out on unit patient is 1:1. Bed alarm being utilized.
[2022-01-18 20:15] VITALS: BP 111/42; PULSE 80; RESP 16; TEMP 36.9; O2SAT 94
[2022-01-18] MEDS: Atorvastatin Calcium 10 MG TABLET PO (20:30)
[2022-01-18] MEDS: Sertraline HCL 50 MG TABLET 150 MG PO (20:30)
--- NOTE | 2022-01-18 23:49 | P.PNPSI_ITS ---
Subjective Subjective Date of Service: 01/18/22 Reason For Visit: Change mental status/depression Interim History: Patient seen and discussed with team. Patient evaluated today and upon interview he is found laying down in bed, eyes closed. Says he is okay, sleep is okay. Per staff, appetite is improving. Denies questions or concerns. Mood is okay. Still tired, but says energy is not as low as it was. Plan is for ECT, pt has been cleared.? In the milieu, patient is safe but withdrawn, flat. Medication Compliance: Yes Side effects from medications: No Attending Groups: No Review of Systems Acute medical concerns: No Medical Review of Systems: unchanged Mental Status Exam Mental Status Exam Narrative: Patient Appearance: Well Grooomed Patient Orientation: Person and Situation Level of Consciousness: Awake Patient Behavior: Guarded and Passive Mood Description: Withdrawn Affect Description: Constricted Patient Cognition Impaired: Yes Ability to Follow Directions: Good Speech Pattern: Clear Hallucinations: None Delusions: Not Present Thought Process: Evasive and Slowed Thinking Thought Content: positive for [place] Judgement: Fair Diagnostics Vital Signs (24Hr): Vital Signs - 24 hr 01/18/22 20:15 01/19/22 07:30 Temperature 98.4 F 97.7 F Pulse Rate 80 71 Respiratory Rate 16 14 Blood Pressure 111/42 L 118/58 L Pulse Oximetry 94 94 Oxygen Delivery Method Room Air Room Air BMI result Body Mass Index 17.9 Labs Results: 01/09/22 19:54 01/09/22 19:54 Imaging Radiology Impressions: ITS Impressions Head CT 01/09/22 19:11 IMPRESSION: Moderate to large left scalp hematoma without calvarial fracture. No acute intracranial process seen. No left rib fracture abnormality seen. The lungs are clear Ribs X-Ray 01/09/22 19:17 IMPRESSION: Moderate to large left scalp hematoma without calvarial fracture. No acute intracranial process seen. No left rib fracture abnormality seen. The lungs are clear Medications Medications Current Medications Acetaminophen (Acetaminophen 325 Mg Tablet) 650 mg PO Q8H PRN PRN Reason: Pain Acetaminophen (Acetaminophen 325 Mg Tablet) 650 mg PO Q6H PRN PRN Reason: Headache/Pain Mild Scale (1-3) Last Admin: 01/11/22 20:06 Dose: 650 mg Al Hydroxide/Mg Hydroxide (Magnesium Hydrox/Alum Hydrox 30 Ml Oral.Susp) 30 ml PO Q6H PRN PRN Reason: Heartburn/Nausea Aripiprazole (Aripiprazole 5 Mg Tablet) 5 mg PO DAILY@1600 [facility] Last Admin: 01/18/22 16:52 Dose: 5 mg Atorvastatin Calcium (Atorvastatin Calcium 10 Mg Tablet) 10 mg PO BEDTIME [facility] Last Admin: 01/18/22 20:30 Dose: 10 mg Calcium Polycarbophil (Calcium Polycarbophil Tablet) 2 tab PO DAILY [facility] Last Admin: 01/19/22 08:28 Dose: 2 tab Donepezil HCl (Donepezil Hcl 10 Mg Tablet) 10 mg PO DAILY [facility] Last Admin: 01/19/22 08:28 Dose: 10 mg Ferrous Sulfate (Ferrous Sulfate 324 Mg Tablet.Dr) 324 mg PO DAILY [facility] Last Admin: 01/19/22 08:28 Dose: 324 mg Hydroxyzine HCl (Hydroxyzine Hcl 25 Mg Tablet) 25 mg PO BEDTIME PRN PRN Reason: Anxiety Levothyroxine Sodium (Levothyroxine Sodium 75 Mcg Tablet) 75 mcg PO DAILY@0630 [facility] Last Admin: 01/19/22 06:15 Dose: 75 mcg Magnesium Hydroxide (Milk Of Magnesia 30 Ml Oral.Susp) 30 ml PO DAILY PRN PRN Reason: Constipation Multivitamins/Vitamin C (Multivitamin Tablet) 1 tab PO DAILY [facility] Last Admin: 01/19/22 08:28 Dose: 1 tab Pharmacy Consult (Consult Rx Perform Med Rec) 1 each MISCELLANE ONCE PRN PRN Reason: Consult order Sertraline HCl (Sertraline Hcl 50 Mg Tablet) 150 mg PO BEDTIME [facility] Last Admin: 01/18/22 20:30 Dose: 150 mg Trazodone HCl (Trazodone Hcl 50 Mg Tablet) 50 mg PO BEDTIME PRN PRN Reason: Insomnia Allergies Allergies Allergy/AdvReac Type Severity Reaction Status Date / Time No Known Allergies Allergy Verified 12/04/21 10:54 Assessment & Plan Assessment & Plan (1) Orthostatic hypotension: Status: Acute Code(s): I95.1 - Orthostatic hypotension Plan 76 yo M who is admitted to geriatric psych had an unwitnessed fall while getitng up to go to the bathroom. Pt sustained a hematoma on the forehead. Plan 1. Continue same regimen.? 2. EKG for possibility of ECT.? 3.Psychoeducation into treatment options. 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 KEENAN stockings have not come yet. No med changes. Reviewed ECT clearance. For EKG clearance: ekg seems fine CT head negative, patient does not have any neurological symptoms currently. Walking with a walker no dizziness. No obvious contraindication to proceed to ECT at this time, advised to be careful on with the ECT electrodes when put over the hematoma area. 2. Orthostatic hypotension: Not on any medications Keenan stockings PT evaluation when possible. Avoid psychotic medications and blood pressure medication that can cause orthostasis. 3. Hypothyroidism: TSH is borderline elevated, free T4 is normal Continue levothyroxine I spent minutes with the patient and/or on the patient floor today, greater than?50% of which was spent counseling/coordinating care. Patient educated on: therapeutic strategies Reason for contiued inpatient stay Substantial Risk for: harm to self, inability to function and rapid decompensation
[2022-01-19] MEDS: Levothyroxine Sodium 75 MCG TABLET PO (06:15)
[2022-01-19 07:30] VITALS: BP 118/58; PULSE 71; RESP 14; TEMP 36.5; O2SAT 94
[2022-01-19] MEDS: Donepezil HCl 10 MG TABLET PO (08:28)
[2022-01-19] MEDS: calcium polycarbophiL TABLET 2 TAB PO (08:28)
[2022-01-19] MEDS: Ferrous Sulfate 324 MG TABLET.DR PO (08:28)
[2022-01-19] MEDS: Multivitamin TABLET 1 TAB PO (08:28)
--- NOTE | 2022-01-19 11:49 | P.PNPSI_ITS ---
Subjective Subjective Date of Service: 01/19/22 Reason For Visit: Change mental status/depression Interim History: Patient seen and discussed with team. Patient evaluated today and upon interview Doing okay, slept pretty good, Denies questions or concerns. Says depression is not bad. Denies anxiety.? In the milieu, patient is safe and appropriate in behavior. Denies SI/SIB/HI upon inquiry. Denies irritability or assaultive ideation. Says he feels safe. Mental Status Exam Mental Status Exam Narrative: Patient Appearance: Well Grooomed Patient Orientation: Person and Situation Level of Consciousness: Awake Patient Behavior: Guarded and Passive Mood Description: Withdrawn Affect Description: Constricted Patient Cognition Impaired: Yes Ability to Follow Directions: Good Speech Pattern: Clear Hallucinations: None Delusions: Not Present Thought Process: Evasive and Slowed Thinking Thought Content: positive for [place] Judgement: Fair Diagnostics Vital Signs (24Hr): Vital Signs - 24 hr 01/18/22 20:15 01/19/22 07:30 Temperature 98.4 F 97.7 F Pulse Rate 80 71 Respiratory Rate 16 14 Blood Pressure 111/42 L 118/58 L Pulse Oximetry 94 94 Oxygen Delivery Method Room Air Room Air BMI result Body Mass Index 17.9 Labs Results: 01/09/22 19:54 01/09/22 19:54 Imaging Radiology Impressions: ITS Impressions Head CT 01/09/22 19:11 IMPRESSION: Moderate to large left scalp hematoma without calvarial fracture. No acute intracranial process seen. No left rib fracture abnormality seen. The lungs are clear Ribs X-Ray 01/09/22 19:17 IMPRESSION: Moderate to large left scalp hematoma without calvarial fracture. No acute intracranial process seen. No left rib fracture abnormality seen. The lungs are clear Medications Medications Current Medications Acetaminophen (Acetaminophen 325 Mg Tablet) 650 mg PO Q8H PRN PRN Reason: Pain Acetaminophen (Acetaminophen 325 Mg Tablet) 650 mg PO Q6H PRN PRN Reason: Headache/Pain Mild Scale (1-3) Last Admin: 01/11/22 20:06 Dose: 650 mg Al Hydroxide/Mg Hydroxide (Magnesium Hydrox/Alum Hydrox 30 Ml Oral.Susp) 30 ml PO Q6H PRN PRN Reason: Heartburn/Nausea Aripiprazole (Aripiprazole 5 Mg Tablet) 5 mg PO DAILY@1600 [facility] Last Admin: 01/18/22 16:52 Dose: 5 mg Atorvastatin Calcium (Atorvastatin Calcium 10 Mg Tablet) 10 mg PO BEDTIME [facility] Last Admin: 01/18/22 20:30 Dose: 10 mg Calcium Polycarbophil (Calcium Polycarbophil Tablet) 2 tab PO DAILY [facility] Last Admin: 01/19/22 08:28 Dose: 2 tab Donepezil HCl (Donepezil Hcl 10 Mg Tablet) 10 mg PO DAILY [facility] Last Admin: 01/19/22 08:28 Dose: 10 mg Ferrous Sulfate (Ferrous Sulfate 324 Mg Tablet.) 324 mg PO DAILY [facility] Last Admin: 01/19/22 08:28 Dose: 324 mg Hydroxyzine HCl (Hydroxyzine Hcl 25 Mg Tablet) 25 mg PO BEDTIME PRN PRN Reason: Anxiety Levothyroxine Sodium (Levothyroxine Sodium 75 Mcg Tablet) 75 mcg PO DAILY@0630 [facility] Last Admin: 01/19/22 06:15 Dose: 75 mcg Magnesium Hydroxide (Milk Of Magnesia 30 Ml Oral.Susp) 30 ml PO DAILY PRN PRN Reason: Constipation Multivitamins/Vitamin C (Multivitamin Tablet) 1 tab PO DAILY [facility] Last Admin: 01/19/22 08:28 Dose: 1 tab Pharmacy Consult (Consult Rx Perform Med Rec) 1 each MISCELLANE ONCE PRN PRN Reason: Consult order Sertraline HCl (Sertraline Hcl 50 Mg Tablet) 150 mg PO BEDTIME [facility] Last Admin: 01/18/22 20:30 Dose: 150 mg Trazodone HCl (Trazodone Hcl 50 Mg Tablet) 50 mg PO BEDTIME PRN PRN Reason: Insomnia Allergies Allergies Allergy/AdvReac Type Severity Reaction Status Date / Time No Known Allergies Allergy Verified 12/04/21 10:54 Assessment & Plan Assessment & Plan (1) Orthostatic hypotension: Status: Acute Code(s): I95.1 - Orthostatic hypotension Plan 76 yo M who is admitted to geriatric psych had an unwitnessed fall while getitng up to go to the bathroom. Pt sustained a hematoma on the forehead. Plan 1. Continue same regimen.? 2. EKG for possibility of ECT.? 3.Psychoeducation into treatment options. 01/18: Consulted with hospitalist, who recommends PT and urologist follow up for BPH in OP setting. KEENAN stockings have not come yet. No med changes. Reviewed ECT clearance. 01/19: No med adjustments indicated For EKG clearance: ekg seems fine CT head negative, patient does not have any neurological symptoms currently.? Walking with a walker no dizziness. No obvious contraindication to proceed to ECT at this time, advised to be careful on with the ECT electrodes when put over the hematoma area. 2. Orthostatic hypotension: Not on any medications Keenan stockings PT evaluation when possible. Avoid psychotic medications and blood pressure medication that can cause orthostasis. 3. Hypothyroidism: TSH is borderline elevated, free T4 is normal Continue levothyroxine I spent minutes with the patient and/or on the patient floor today, greater than?50% of which was spent counseling/coordinating care. Reason for contiued inpatient stay Substantial Risk for: harm to self, inability to function and rapid decomp ensation
[2022-01-19] MEDS: ARIPiprazole 5 MG TABLET PO (16:57)
[2022-01-19 21:07] VITALS: BP 107/57; PULSE 72; RESP 18; TEMP 36.2; O2SAT 98
[2022-01-19] MEDS: Atorvastatin Calcium 10 MG TABLET PO (21:07)
[2022-01-19] MEDS: Sertraline HCL 50 MG TABLET 150 MG PO (21:07)
[2022-01-20] MEDS: Acetaminophen 325 MG TABLET 650 MG PO (00:56)
[2022-01-20] MEDS: traZODone HCL 50 MG TABLET PO (00:56)
[2022-01-20] MEDS: hydrOXYzine HCL 25 MG TABLET PO (00:56)
[2022-01-20] MEDS: Ferrous Sulfate 324 MG TABLET.DR PO (08:32)
[2022-01-20] MEDS: Multivitamin TABLET 1 TAB PO (08:32)
[2022-01-20] MEDS: Donepezil HCl 10 MG TABLET PO (08:32)
[2022-01-20] MEDS: Levothyroxine Sodium 75 MCG TABLET PO (08:33)
[2022-01-20] MEDS: calcium polycarbophiL TABLET 2 TAB PO (08:33)
[2022-01-20 15:27] VITALS: BP 123/57; PULSE 61; RESP 16; TEMP 36.6; O2SAT 95
[2022-01-20] MEDS: ARIPiprazole 5 MG TABLET PO (15:56)
[2022-01-20 18:00] VITALS: BP 109/52; PULSE 71; RESP 16; TEMP 36.1; O2SAT 96
--- NOTE | 2022-01-20 19:40 | HO.PSYCHPN ---
Subjective Subjective Date of Service: 01/20/22 Reason For Visit: Change mental status/depression Subjective Notes: [place]oper Warning Interim History: Patient seen and discussed with team. Patient evaluated today and upon interview he reports he feels alright, he is found eating. Sleep is good. Has gained 10 lbs. KEENAN stockings have not come in. They are trying to walk him every shift. In the milieu, patient is safe. Medication Compliance: Yes Side effects from medications: No Attending Groups: No Review of Systems Acute medical concerns: No Medical Review of Systems: unchanged Mental Status Exam Mental Status Exam Narrative: Patient Appearance: Well Grooomed Patient Orientation: Person and Situation Level of Consciousness: Awake Patient Behavior: Guarded and Passive Mood Description: Withdrawn Affect Description: Constricted Patient Cognition Impaired: Yes Ability to Follow Directions: Good Speech Pattern: Clear Hallucinations: None Delusions: Not Present Thought Process: Evasive and Slowed Thinking Thought Content: positive for [place] Judgement: Fair Diagnostics Vital Signs (24Hr): Vital Signs - 24 hr 01/20/22 15:27 01/20/22 18:00 Temperature 98 F 96.9 F Pulse Rate 61 71 Respiratory Rate 16 16 Blood Pressure 123/57 L 109/52 L Pulse Oximetry 95 96 Oxygen Delivery Method Room Air Room Air BMI result Body Mass Index 17.9 Labs Results: 01/09/22 19:54 01/09/22 19:54 Imaging Radiology Impressions: ITS Impressions Head CT 01/09/22 19:11 IMPRESSION: Moderate to large left scalp hematoma without calvarial fracture. No acute intracranial process seen. No left rib fracture abnormality seen. The lungs are clear Ribs X-Ray 01/09/22 19:17 IMPRESSION: Moderate to large left scalp hematoma without calvarial fracture. No acute intracranial process seen. No left rib fracture abnormality seen. The lungs are clear Medications Medications Current Medications Acetaminophen (Acetaminophen 325 Mg Tablet) 650 mg PO Q8H PRN PRN Reason: Pain Acetaminophen (Acetaminophen 325 Mg Tablet) 650 mg PO Q6H PRN PRN Reason: Headache/Pain Mild Scale (1-3) Last Admin: 01/20/22 00:56 Dose: 650 mg Al Hydroxide/Mg Hydroxide (Magnesium Hydrox/Alum Hydrox 30 Ml Oral.Susp) 30 ml PO Q6H PRN PRN Reason: Heartburn/Nausea Aripiprazole (Aripiprazole 5 Mg Tablet) 5 mg PO DAILY@1600 SUJIT Last Admin: 01/20/22 15:56 Dose: 5 mg Atorvastatin Calcium (Atorvastatin Calcium 10 Mg Tablet) 10 mg PO BEDTIME [facility] Last Admin: 01/20/22 20:45 Dose: 10 mg Calcium Polycarbophil (Calcium Polycarbophil Tablet) 2 tab PO DAILY [facility] Last Admin: 01/20/22 08:33 Dose: 2 tab Donepezil HCl (Donepezil Hcl 10 Mg Tablet) 10 mg PO DAILY [facility] Last Admin: 01/20/22 08:32 Dose: 10 mg Ferrous Sulfate (Ferrous Sulfate 324 Mg Tablet.Dr) 324 mg PO DAILY [facility] Last Admin: 01/20/22 08:32 Dose: 324 mg Hydroxyzine HCl (Hydroxyzine Hcl 25 Mg Tablet) 25 mg PO BEDTIME PRN PRN Reason: Anxiety Last Admin: 01/20/22 00:56 Dose: 25 mg Levothyroxine Sodium (Levothyroxine Sodium 75 Mcg Tablet) 75 mcg PO DAILY@0630 [facility] Last Admin: 01/21/22 06:21 Dose: 75 mcg Magnesium Hydroxide (Milk Of Magnesia 30 Ml Oral.Susp) 30 ml PO DAILY PRN PRN Reason: Constipation Multivitamins/Vitamin C (Multivitamin Tablet) 1 tab PO DAILY [facility] Last Admin: 01/20/22 08:32 Dose: 1 tab Pharmacy Consult (Consult Rx Perform Med Rec) 1 each MISCELLANE ONCE PRN PRN Reason: Consult order Sertraline HCl (Sertraline Hcl 50 Mg Tablet) 150 mg PO BEDTIME [facility] Last Admin: 01/20/22 20:45 Dose: 150 mg Trazodone HCl (Trazodone Hcl 50 Mg Tablet) 50 mg PO BEDTIME PRN PRN Reason: Insomnia Last Admin: 01/20/22 00:56 Dose: 50 mg Allergies Allergies Allergy/AdvReac Type Severity Reaction Status Date / Time No Known Allergies Allergy Verified 12/04/21 10:54 Assessment & Plan Assessment & Plan (1) Orthostatic hypotension: Status: Acute Code(s): I95.1 - Orthostatic hypotension Plan 76 yo M who is admitted to geriatric psych had an unwitnessed fall while getitng up to go to the bathroom. Pt sustained a hematoma on the forehead. Plan 1. Continue same regimen.? 2. EKG for possibility of ECT.? 3.Psychoeducation into treatment options. 01/18: Consulted with hospitalist, who recommends PT and urologist follow up for BPH in OP setting. KEENAN stockings have not come yet. No med changes. Reviewed ECT clearance. 01/19: No med adjustments indicated 01/20: No changes indicated, pt confused but pleasant For EKG clearance: ekg seems fine CT head negative, patient does not have any neurological symptoms currently.? Walking with a walker no dizziness. No obvious contraindication to proceed to ECT at this time, advised to be careful on with the ECT electrodes when put over the hematoma area. 2. Orthostatic hypotension: Not on any medications Keenan stockings PT evaluation when possible. Avoid psychotic medications and blood pressure medication that can cause orthostasis. 3. Hypothyroidism: TSH is borderline elevated, free T4 is normal Continue levothyroxine I spent minutes with the patient and/or on the patient floor today, greater than?50% of which was spent counseling/coordinating care. Patient educated on: therapeutic strategies Reason for contiued inpatient stay Substantial Risk for: inability to function, rapid decompensation and med/psych decompensation
[2022-01-20] MEDS: Atorvastatin Calcium 10 MG TABLET PO (20:45)
[2022-01-20] MEDS: Sertraline HCL 50 MG TABLET 150 MG PO (20:45)
[2022-01-21 06:00] VITALS: BP 147/69; PULSE 67; RESP 16; TEMP 36.8; O2SAT 93
[2022-01-21] MEDS: Levothyroxine Sodium 75 MCG TABLET PO (06:21)
--- NOTE | 2022-01-21 15:46 | P.PNPSI_ITS ---
Subjective Subjective Date of Service: 01/21/22 Reason For Visit: Change mental status/depression Subjective Notes: Conditional Voluntary Interim History: The nursing staff reported the patient has been compliant with treatment, he is very quiet and stay most of the time in his room. Nevertheless, his appetite has increased and he has put 9 lb since he has been admitted. Still he is cachectic. On interview the patient denies new symptoms he is more anxious since we will start ECT tomorrow. Medication Compliance: Yes Side effects from medications: No Attending Groups: No Review of Systems Acute medical concerns: No Medical Review of Systems: unchanged Mental Status Exam Mental Status Exam Patient Appearance: Well Grooomed Patient Orientation: Person and Situation Level of Consciousness: Awake Patient Behavior: Guarded and Cooperative Mood Description: Withdrawn Affect Description: Blunted Patient Cognition Impaired: Yes Ability to Follow Directions: Good Speech Pattern: Clear Hallucinations: None Delusions: Paranoid Ideation Thought Process: Distracted and Slowed Thinking Thought Content: positive for [place] Judgement: Fair Diagnostics Vital Signs (24Hr): Vital Signs - 24 hr 01/20/22 18:00 Temperature 96.9 F Pulse Rate 71 Respiratory Rate 16 Blood Pressure 109/52 L Pulse Oximetry 96 Oxygen Delivery Method Room Air BMI result Body Mass Index 17.9 Labs Results: 01/09/22 19:54 01/09/22 19:54 Imaging Radiology Impressions: ITS Impressions Head CT 01/09/22 19:11 IMPRESSION: Moderate to large left scalp hematoma without calvarial fracture. No acute intracranial process seen. No left rib fracture abnormality seen. The lungs are clear Ribs X-Ray 01/09/22 19:17 IMPRESSION: Moderate to large left scalp hematoma without calvarial fracture. No acute intracranial process seen. No left rib fracture abnormality seen. The lungs are clear Medications Medications Current Medications Acetaminophen (Acetaminophen 325 Mg Tablet) 650 mg PO Q8H PRN PRN Reason: Pain Acetaminophen (Acetaminophen 325 Mg Tablet) 650 mg PO Q6H PRN PRN Reason: Headache/Pain Mild Scale (1-3) Last Admin: 01/20/22 00:56 Dose: 650 mg Al Hydroxide/Mg Hydroxide (Magnesium Hydrox/Alum Hydrox 30 Ml Oral.Susp) 30 ml PO Q6H PRN PRN Reason: Heartburn/Nausea Aripiprazole (Aripiprazole 5 Mg Tablet) 5 mg PO DAILY@1600 SUJIT Last Admin: 01/20/22 15:56 Dose: 5 mg Atorvastatin Calcium (Atorvastatin Calcium 10 Mg Tablet) 10 mg PO BEDTIME [facility] Last Admin: 01/20/22 20:45 Dose: 10 mg Calcium Polycarbophil (Calcium Polycarbophil Tablet) 2 tab PO DAILY [facility] Last Admin: 01/21/22 12:25 Dose: Not Given Donepezil HCl (Donepezil Hcl 10 Mg Tablet) 10 mg PO DAILY [facility] Last Admin: 01/21/22 12:25 Dose: Not Given Ferrous Sulfate (Ferrous Sulfate 324 Mg Tablet.) 324 mg PO DAILY [facility] Last Admin: 01/21/22 12:25 Dose: Not Given Hydroxyzine HCl (Hydroxyzine Hcl 25 Mg Tablet) 25 mg PO BEDTIME PRN PRN Reason: Anxiety Last Admin: 01/20/22 00:56 Dose: 25 mg Levothyroxine Sodium (Levothyroxine Sodium 75 Mcg Tablet) 75 mcg PO DAILY@0630 [facility] Last Admin: 01/21/22 06:21 Dose: 75 mcg Magnesium Hydroxide (Milk Of Magnesia 30 Ml Oral.Susp) 30 ml PO DAILY PRN PRN Reason: Constipation Multivitamins/Vitamin C (Multivitamin Tablet) 1 tab PO DAILY [facility] Last Admin: 01/21/22 12:26 Dose: Not Given Pharmacy Consult (Consult Rx Perform Med Rec) 1 each MISCELLANE ONCE PRN PRN Reason: Consult order Sertraline HCl (Sertraline Hcl 50 Mg Tablet) 150 mg PO BEDTIME [facility] Last Admin: 01/20/22 20:45 Dose: 150 mg Trazodone HCl (Trazodone Hcl 50 Mg Tablet) 50 mg PO BEDTIME PRN PRN Reason: Insomnia Last Admin: 01/20/22 00:56 Dose: 50 mg Allergies Allergies Allergy/AdvReac Type Severity Reaction Status Date / Time No Known Allergies Allergy Verified 12/04/21 10:54 Assessment & Plan Assessment & Plan (1) Orthostatic hypotension: Status: Acute Code(s): I95.1 - Orthostatic hypotension Plan 76 yo M who is admitted to geriatric psych had an unwitnessed fall while getitng up to go to the bathroom. Pt sustained a hematoma on the forehead. Plan 01/18: Consulted with hospitalist, who recommends PT and urologist follow up for BPH in OP setting. KEENAN stockings have not come yet. No med changes. Reviewed ECT clearance. 01/19: No med adjustments indicated For EKG clearance: ekg seems fine CT head negative, patient does not have any neurological symptoms currently.? Walking with a walker no dizziness. No obvious contraindication to proceed to ECT at this time, advised to be careful on with the ECT electrodes when put over the hematoma area. 2. Orthostatic hypotension: Not on any medications Keenan stockings PT evaluation when possible. Avoid psychotic medications and blood pressure medication that can cause orthostasis. 3. Hypothyroidism: TSH is borderline elevated, free T4 is normal Continue levothyroxine I spent __20____ minutes with the patient and/or on the patient floor today, greater than?50% of which was spent counseling/coordinating care. Reason for contiued inpatient stay Substantial Risk for: inability to function, rapid decompensation and med/psych decompensation
[2022-01-21] MEDS: ARIPiprazole 5 MG TABLET PO (17:18)
[2022-01-21 18:00] VITALS: BP 119/55; PULSE 70; RESP 16; TEMP 37.3; O2SAT 94
[2022-01-21] MEDS: Sertraline HCL 50 MG TABLET 150 MG PO (21:19)
[2022-01-21] MEDS: Atorvastatin Calcium 10 MG TABLET PO (21:19)
[2022-01-22] VITALS (12 sets, daily range): BP systolic 100–152; BP diastolic 56–85; PULSE 58–106; RESP 14–20; TEMP 36.2–37.3; O2SAT 92–98
[2022-01-22] MEDS: Levothyroxine Sodium 75 MCG TABLET PO (05:36)
--- NOTE | 2022-01-22 08:36 | MHC.SHP ---
Pre-Procedural Eval Section A Date of Service: 01/22/22 The patient is an INPATIENT: Yes Changes since office visit: Yes Changes in Medication and Yes Patient answered all questions; No Cold of Flu in the past 2 weeks and No New Medical Problems The History & Physical has been completed within 30 days and I have reviewed it.: Yes Section B Chief Complaint: Change mental status/depression Allergies: Allergies Allergy/AdvReac Type Severity Reaction Status Date / Time No Known Allergies Allergy Verified 12/04/21 10:54 Plan I have reviewed the history and physical and performed a pertinent physical examination on my patient. No changes have occurred unless specified.
--- NOTE | 2022-01-22 08:37 | HO.ANESPROP2 ---
HPI - Anesthesia Eval Consult details Narrative: Major Depression PMF Active Problems Active Problems: All Active Problems (Updated 01/09/22 @ 20:20 by Walt Meneses MD) Orthostatic hypotension (Acute) Fall (Acute) Fatigue (Acute) Weight decreased (Acute) Cognitive impairment (Acute) MDD (major depressive disorder), recurrent episode, moderate (Acute) Past Medical History Medical History Depression Depression HLD (hyperlipidemia) HTN (hypertension) Hypothyroidism Prostate cancer Family History Family History Other Prostate cancer Family history of problems with anesthesia: No Surgical History Surgical History H/O prostatectomy History of hernia surgery History of Problems with Anesthesia: No Social History Social History Household Members: Spouse Housing: House Do you presently have visiting nurse or other home services: No Patient Tobacco Use Status: Former Tobacco user Tobacco use type: Cigarette Cigarette Packs Per Day: 1 Cigarettes Per Day: 20.0 Smoked in Last 30 Days: No e-Cigarette/Vaping Use: Never Used Patient Interested in Nicotine Replacement: No Patient Given Instructions on How to Stop Smoking: No Second Hand Smoke Exposure: No Use of substances other than those prescribed or required for medical reasons: No Currently Displaying Signs/Symptoms of Drug Intoxication Withdrawal: No Any prior treatment program specific to substance use: No Have you been hit, kicked, punched, or otherwise hurt by someone within the past year? If so, by whom?: No Do you feel safe in your current relationship?: Yes Is there a partner from a previous relationship who is making you feel unsafe now?: No Are you made to feel afraid or neglected: No Advance Directives: Yes Advance Directives Information Provided: No (declined) Advance Directives on File: No Do you have thoughts of harming others: None Do you have a plan to hurt others: No Plan Recently lost weight without trying: No Nutrition Risks: Emaciation/Cachexia Poor oral hygiene: No service: Yes ([employer]) Sexual orientation: Straight/Heterosexual Meds Allergies Allergy/AdvReac Type Severity Reaction Status Date / Time No Known Allergies Allergy Verified 12/04/21 10:54 Active Medications: Current Medications Acetaminophen (Acetaminophen 325 Mg Tablet) 650 mg PO Q8H PRN PRN Reason: Pain Acetaminophen (Acetaminophen 325 Mg Tablet) 650 mg PO Q6H PRN PRN Reason: Headache/Pain Mild Scale (1-3) Last Admin: 01/20/22 00:56 Dose: 650 mg Al Hydroxide/Mg Hydroxide (Magnesium Hydrox/Alum Hydrox 30 Ml Oral.Susp) 30 ml PO Q6H PRN PRN Reason: Heartburn/Nausea Aripiprazole (Aripiprazole 5 Mg Tablet) 5 mg PO DAILY@1600 [facility] Last Admin: 01/21/22 17:18 Dose: 5 mg Atorvastatin Calcium (Atorvastatin Calcium 10 Mg Tablet) 10 mg PO BEDTIME [facility] Last Admin: 01/21/22 21:19 Dose: 10 mg Calcium Polycarbophil (Calcium Polycarbophil Tablet) 2 tab PO DAILY [facility] Last Admin: 01/21/22 12:25 Dose: Not Given Donepezil HCl (Donepezil Hcl 10 Mg Tablet) 10 mg PO DAILY [facility] Last Admin: 01/21/22 12:25 Dose: Not Given Ferrous Sulfate (Ferrous Sulfate 324 Mg Tablet.Dr) 324 mg PO DAILY [facility] Last Admin: 01/21/22 12:25 Dose: Not Given Hydroxyzine HCl (Hydroxyzine Hcl 25 Mg Tablet) 25 mg PO BEDTIME PRN PRN Reason: Anxiety Last Admin: 01/20/22 00:56 Dose: 25 mg Levothyroxine Sodium (Levothyroxine Sodium 75 Mcg Tablet) 75 mcg PO DAILY@0630 [facility] Last Admin: 01/22/22 05:36 Dose: 75 mcg Magnesium Hydroxide (Milk Of Magnesia 30 Ml Oral.Susp) 30 ml PO DAILY PRN PRN Reason: Constipation Multivitamins/Vitamin C (Multivitamin Tablet) 1 tab PO DAILY [facility] Last Admin: 01/21/22 12:26 Dose: Not Given Pharmacy Consult (Consult Rx Perform Med Rec) 1 each MISCELLANE ONCE PRN PRN Reason: Consult order Sertraline HCl (Sertraline Hcl 50 Mg Tablet) 150 mg PO BEDTIME [facility] Last Admin: 01/21/22 21:19 Dose: 150 mg Trazodone HCl (Trazodone Hcl 50 Mg Tablet) 50 mg PO BEDTIME PRN PRN Reason: Insomnia Last Admin: 01/20/22 00:56 Dose: 50 mg Home Medications Medication Instructions Recorded Confirmed Last Taken Type acetaminophen 650 mg 650 mg PO Q8H PRN Pain 04/04/21 12/31/21 12/29/21 History tablet,extended release sertraline 100 mg tablet 100 mg PO BEDTIME 12/04/21 12/31/21 12/29/21 History aripiprazole 10 mg tablet 1 tab PO DAILY 12/31/21 12/31/21 12/29/21 History donepezil 10 mg tablet 1 tab PO DAILY 12/31/21 12/31/21 12/29/21 History ferrous sulfate 325 mg (65 mg 325 mg PO DAILY 12/31/21 12/31/21 12/29/21 History iron) tablet mirtazapine 15 mg tablet 1 tab PO BEDTIME 12/31/21 12/31/21 12/29/21 History Exam Exam Date and Time: January 22, 2022 0837 Height,Weight and Vital Signs: Height 6 ft Weight 59.88 kg Last Vital Signs Temp 98 F 01/22/22 08:25 Pulse 58 01/22/22 08:25 Resp 18 01/22/22 08:25 BP 152/60 H 01/22/22 08:25 Pulse Ox 98 01/22/22 08:25 O2 Del Method 01/22/22 08:25 Pertinent Lab Results Pertinent Lab Results: Laboratory Tests 12/30/21 12/30/21 12/30/21 22:53 22:53 23:59 WBC 4.5 L RBC 4.01 L Hgb 12.8 L Hct 38.9 L MCV 97.0 MCH 31.9 MCHC 32.9 RDW 13.2 Plt Count 146 L MPV 9.5 Immature Gran % (Auto) 0.2 Neut % (Auto) 75.1 H Lymph % (Auto) 17.1 L [place] % (Auto) 6.7 Eos % (Auto) 0.7 Baso % (Auto) 0.2 Lymph # (Auto) 0.8 L [place] # (Auto) 0.3 Eos # (Auto) 0.0 Baso # (Auto) 0.0 Abs Immat Gran (auto) 0.01 Absolute Neuts (auto) 3.4 Absolute Nucleated RBC 0.000 Nucleated RBC % (auto) 0.0 Sodium 142 Potassium 4.2 Chloride 99 Carbon Dioxide 34 H Anion Gap 13 BUN 26 H Creatinine 0.94 Estim Creat Clear Calc 54.7 Estimated GFR > 60 Random Glucose 158 H D Fasting Glucose Calcium 9.4 Iron TIBC % Saturation Unsat Iron Binding Total Bilirubin 0.5 AST 30 D ALT 37 Alkaline Phosphatase 61 Total Protein 6.8 Albumin 4.1 Triglycerides Cholesterol LDL Cholesterol, Calc HDL Cholesterol Vitamin B12 Folate TSH Free T4 Urine Color YELLOW Urine Appearance CLEAR Urine pH 6.0 Ur Specific Epes 1.020 Urine Protein NEG Urine Glucose (UA) NEG Urine Ketones 5 Urine Blood NEG Urine Nitrite NEG Ur Leukocyte Esterase NEG COVID-19 (BEV) COVID-19 Clin Com 01/01/22 01/01/22 01/01/22 12:17 12:17 14:18 WBC RBC Hgb Hct MCV MCH MCHC RDW Plt Count MPV Immature Gran % (Auto) Neut % (Auto) Lymph % (Auto) [place] % (Auto) Eos % (Auto) Baso % (Auto) Lymph # (Auto) [place] # (Auto) Eos # (Auto) Baso # (Auto) Abs Immat Gran (auto) Absolute Neuts (auto) Absolute Nucleated RBC Nucleated RBC % (auto) Sodium Potassium Chloride Carbon Dioxide Anion Gap BUN Creatinine Estim Creat Clear Calc Estimated GFR Random Glucose Fasting Glucose Calcium Iron TIBC % Saturation Unsat Iron Binding Total Bilirubin AST ALT Alkaline Phosphatase Total Protein Albumin Triglycerides Cholesterol LDL Cholesterol, Calc HDL Cholesterol Vitamin B12 1416 H Folate > 20.0 TSH 4.20 H Free T4 1.07 Urine Color Urine Appearance Urine pH Ur Specific Epes Urine Protein Urine Glucose (UA) Urine Ketones Urine Blood Urine Nitrite Ur Leukocyte Esterase COVID-19 (BEV) Negative COVID-19 Clin Com See Note 01/02/22 01/05/22 01/09/22 08:00 18:14 19:54 WBC 5.7 RBC 3.78 L Hgb 11.9 L Hct 36.6 L MCV 96.8 MCH 31.5 MCHC 32.5 RDW 13.4 Plt Count 189 D MPV 9.3 L Immature Gran % (Auto) 0.4 Neut % (Auto) 77.4 H Lymph % (Auto) 12.5 L [place] % (Auto) 7.5 Eos % (Auto) 1.8 Baso % (Auto) 0.4 Lymph # (Auto) 0.7 L [place] # (Auto) 0.4 Eos # (Auto) 0.1 Baso # (Auto) 0.0 Abs Immat Gran (auto) 0.02 Absolute Neuts (auto) 4.4 Absolute Nucleated RBC 0.000 Nucleated RBC % (auto) 0.0 Sodium 140 Potassium 3.9 Chloride 102 Carbon Dioxide 32 H Anion Gap 10 L BUN 24 H Creatinine 0.81 Estim Creat Clear Calc 63.5 Estimated GFR > 60 Random Glucose Fasting Glucose 82 Calcium 9.1 Iron 28 L TIBC 229 % Saturation 12 L Unsat Iron Binding 201 Total Bilirubin 0.3 AST 29 ALT 33 Alkaline Phosphatase 54 Total Protein 6.1 L Albumin 3.7 Triglycerides 85 Cholesterol 151 LDL Cholesterol, Calc 88 HDL Cholesterol 46 Vitamin B12 Folate TSH Free T4 Urine Color Urine Appearance Urine pH Ur Specific Epes Urine Protein Urine Glucose (UA) Urine Ketones Urine Blood Urine Nitrite Ur Leukocyte Esterase COVID-19 (BEV) COVID-19 Clin Com 01/09/22 19:54 WBC RBC Hgb Hct MCV MCH MCHC RDW Plt Count MPV Immature Gran % (Auto) Neut % (Auto) Lymph % (Auto) [place] % (Auto) Eos % (Auto) Baso % (Auto) Lymph # (Auto) [place] # (Auto) Eos # (Auto) Baso # (Auto) Abs Immat Gran (auto) Absolute Neuts (auto) Absolute Nucleated RBC Nucleated RBC % (auto) Sodium 142 Potassium 4.2 Chloride 102 Carbon Dioxide 31 H Anion Gap 13 BUN 32 H Creatinine 0.77 Estim Creat Clear Calc 66.8 Estimated GFR > 60 Random Glucose 105 Fasting Glucose Calcium 8.9 Iron TIBC % Saturation Unsat Iron Binding Total Bilirubin AST ALT Alkaline Phosphatase Total Protein Albumin Triglycerides Cholesterol LDL Cholesterol, Calc HDL Cholesterol Vitamin B12 Folate TSH Free T4 Urine Color Urine Appearance Urine pH Ur Specific Epes Urine Protein Urine Glucose (UA) Urine Ketones Urine Blood Urine Nitrite Ur Leukocyte Esterase COVID-19 (BEV) COVID-19 Clin Com Airway Mallampati Class: III TM Dist: >3cm Neck ROM: Limited Loose/Missing/Broken Teeth: Yes (Upper missing, lower implants) Heart: rrr + s1s2 Lungs: cta b/l Assessment and Plan Assessment Anesthesia Assessment: Anesthesia Plan Discussed and Chart Reviewed Final Anesthetic Review Family History of Problems with Anesthesia: No History of Problems with Anesthesia: No NPO: Yes ASA Class: III Final Preanesthetic Review: No Changes in Pt Med Stat, Meds/Allgs Chart Reviewed, Consent Obtained/Reviewed and Anes Risks/Benef Reviewed Patient Risk: Intermediate Procedure Risk: Intermediate Anesthetic Plan Anesthetic Plan: GA and Agree w/ Assess. and Plan Disposition: Standard PACU
--- NOTE | 2022-01-22 09:19 | HO.ECTPROC ---
ECT Procedure Note Diagnosis/Treatment Date of Service: 01/22/22 Diagnosis: Major Depressive Disorder Current Treatment Number: 1 Treatment: Series Interval Clinical Notes: inf consent chart reviewed tx res depression case discussed with anesthesia h failed med tx for depression med consult reviewed ECT Settings Device: THYMATRON DGx Electrode Placement: Right Unilateral Program/Pulse Width: 0.25 Energy Percent: 100 Seizure Duration By EEG (in seconds): 77 Medications Administration General Anesthetic: Etomidate (10) Muscle Relaxant: Succinylcholine (80) Ancillary Medications Anti-emetics: Zofran - Pre ECT Cardiovascular Medications: Atropine Miscillaneous Medications: Propofol Airway Management Airway Management: Bag Mask Ventilation Treatment Recommendations No Changes Recommended: No change Notes: discussed with anesthesia will hold aricept may contribute to bradycardus did well with atropine 1 mg may need pre tx next time
[2022-01-22] MEDS: Donepezil HCl 10 MG TABLET PO (11:41)
[2022-01-22] MEDS: Ferrous Sulfate 324 MG TABLET.DR PO (11:42)
[2022-01-22] MEDS: Multivitamin TABLET 1 TAB PO (11:42)
[2022-01-22] MEDS: calcium polycarbophiL TABLET 2 TAB PO (11:42)
--- NOTE | 2022-01-22 15:26 | MHC.CLN ---
F/U DIET=REGULAR. ENSURE BID PROVIDES ADDITIONAL 700 KCALS, 40 GRAMS PROTEIN. STAFF REPORTS THAT PATIENT EATS VERY WELL. SMALL, FAVORABLE WEIGHT GAIN SINCE ADMISSION. RD TO FOLLOW WEEKLY.
--- NOTE | 2022-01-22 16:27 | HO.PSYCHPN ---
Subjective Subjective Date of Service: 01/22/22 Reason For Visit: Change mental status/depression Subjective Notes: Conditional Voluntary Interim History: the patient had ECT today in the morning and he has been over-sedated in the unit. On interview the patient denies new symptoms he still with lack of energy Mental Status Exam Mental Status Exam Patient Appearance: Well Grooomed Patient Orientation: Person and Situation Level of Consciousness: Sedated and Disoriented Patient Behavior: Appropriate Mood Description: Withdrawn Affect Description: Constricted Patient Cognition Impaired: Yes Ability to Follow Directions: Good Speech Pattern: Clear Hallucinations: None Delusions: Not Present Thought Process: Illogical and Evasive Thought Content: positive for [place] and positive for Poverty of Content Judgement: Fair Diagnostics Vital Signs (24Hr): Vital Signs - 24 hr 01/21/22 18:00 01/22/22 05:18 01/22/22 05:51 Temperature 99.1 F 99.1 F 99.1 F Pulse Rate 70 70 70 Respiratory Rate 16 16 16 Blood Pressure 119/55 L 123/61 123/61 Pulse Oximetry 94 96 96 Oxygen Delivery Method Room Air Room Air Oxygen Flow Rate 01/22/22 08:25 01/22/22 09:00 01/22/22 09:05 Temperature 98 F 97.6 F Pulse Rate 58 74 77 Respiratory Rate 18 16 17 Blood Pressure 152/60 H 111/75 110/56 L Pulse Oximetry 98 98 96 Oxygen Delivery Method Room Air Nasal Cannula Nasal Cannula Oxygen Flow Rate 2 3 01/22/22 09:15 01/22/22 09:30 01/22/22 09:45 Temperature Pulse Rate 81 79 106 H Respiratory Rate 18 17 20 Blood Pressure 135/70 148/56 H 149/85 H Pulse Oximetry 97 96 92 Oxygen Delivery Method Nasal Cannula Nasal Cannula Room Air Oxygen Flow Rate 2 2 01/22/22 10:00 01/22/22 10:15 01/22/22 10:56 Temperature 98.8 F 97.2 F Pulse Rate 88 83 89 Respiratory Rate 17 17 14 Blood Pressure 152/71 H 137/65 148/67 H Pulse Oximetry 94 94 Oxygen Delivery Method Room Air Room Air Oxygen Flow Rate BMI result Body Mass Index 17.9 Labs Results: 01/09/22 19:54 01/09/22 19:54 Imaging Radiology Impressions: ITS Impressions Head CT 01/09/22 19:11 IMPRESSION: Moderate to large left scalp hematoma without calvarial fracture. No acute intracranial process seen. No left rib fracture abnormality seen. The lungs are clear Ribs X-Ray 01/09/22 19:17 IMPRESSION: Moderate to large left scalp hematoma without calvarial fracture. No acute intracranial process seen. No left rib fracture abnormality seen. The lungs are clear Medications Medications Current Medications Acetaminophen (Acetaminophen 325 Mg Tablet) 650 mg PO Q8H PRN PRN Reason: Pain Acetaminophen (Acetaminophen 325 Mg Tablet) 650 mg PO Q6H PRN PRN Reason: Headache/Pain Mild Scale (1-3) Last Admin: 01/20/22 00:56 Dose: 650 mg Acetaminophen (Acetaminophen 325 Mg Tablet) 650 mg PO ONCE PRN PRN Reason: Pain, Mild (Pain Scale 1-3) Al Hydroxide/Mg Hydroxide (Magnesium Hydrox/Alum Hydrox 30 Ml Oral.Susp) 30 ml PO Q6H PRN PRN Reason: Heartburn/Nausea Aripiprazole (Aripiprazole 5 Mg Tablet) 5 mg PO DAILY@1600 [facility] Last Admin: 01/21/22 17:18 Dose: 5 mg Atorvastatin Calcium (Atorvastatin Calcium 10 Mg Tablet) 10 mg PO BEDTIME [facility] Last Admin: 01/21/22 21:19 Dose: 10 mg Calcium Polycarbophil (Calcium Polycarbophil Tablet) 2 tab PO DAILY [facility] Last Admin: 01/22/22 11:42 Dose: 2 tab Donepezil HCl (Donepezil Hcl 10 Mg Tablet) 10 mg PO DAILY [facility] Last Admin: 01/22/22 11:41 Dose: 10 mg Ferrous Sulfate (Ferrous Sulfate 324 Mg Tablet.Dr) 324 mg PO DAILY [facility] Last Admin: 01/22/22 11:42 Dose: 324 mg Hydroxyzine HCl (Hydroxyzine Hcl 25 Mg Tablet) 25 mg PO BEDTIME PRN PRN Reason: Anxiety Last Admin: 01/20/22 00:56 Dose: 25 mg Levothyroxine Sodium (Levothyroxine Sodium 75 Mcg Tablet) 75 mcg PO DAILY@0630 [facility] Last Admin: 01/22/22 05:36 Dose: 75 mcg Magnesium Hydroxide (Milk Of Magnesia 30 Ml Oral.Susp) 30 ml PO DAILY PRN PRN Reason: Constipation Multivitamins/Vitamin C (Multivitamin Tablet) 1 tab PO DAILY [facility] Last Admin: 01/22/22 11:42 Dose: 1 tab Ondansetron HCl (Ondansetron Hcl 4 Mg/2 Ml Vial) 4 mg IVPUSH ONCE PRN PRN Reason: Nausea and Vomiting Pharmacy Consult (Consult Rx Perform Med Rec) 1 each MISCELLANE ONCE PRN PRN Reason: Consult order Sertraline HCl (Sertraline Hcl 50 Mg Tablet) 150 mg PO BEDTIME [facility]JIT Last Admin: 01/21/22 21:19 Dose: 150 mg Trazodone HCl (Trazodone Hcl 50 Mg Tablet) 50 mg PO BEDTIME PRN PRN Reason: Insomnia Last Admin: 01/20/22 00:56 Dose: 50 mg Allergies Allergies Allergy/AdvReac Type Severity Reaction Status Date / Time No Known Allergies Allergy Verified 12/04/21 10:54 Assessment & Plan Assessment & Plan (1) Orthostatic hypotension: Status: Acute Code(s): I95.1 - Orthostatic hypotension Plan 76 yo M who is admitted to geriatric psych had an unwitnessed fall while getitng up to go to the bathroom. Pt sustained a hematoma on the forehead. Plan 1. Continue same regimen.? 2. EKG for possibility of ECT.? 3.Psychoeducation into treatment options. 01/18: Consulted with hospitalist, who recommends PT and urologist follow up for BPH in OP setting. KEENAN stockings have not come yet. No med changes. Reviewed ECT clearance. 01/19: No med adjustments indicated 01/20: No changes indicated, pt confused but pleasant For EKG clearance: ekg seems fine CT head negative, patient does not have any neurological symptoms currently.? Walking with a walker no dizziness. No obvious contraindication to proceed to ECT at this time, advised to be careful on with the ECT electrodes when put over the hematoma area. 2. Orthostatic hypotension: Not on any medications Keenan stockings PT evaluation when possible. Avoid psychotic medications and blood pressure medication that can cause orthostasis. 3. Hypothyroidism: TSH is borderline elevated, free T4 is normal Continue levothyroxine I spent ___20___ minutes with the patient and/or on the patient floor today, greater than?50% of which was spent counseling/coordinating care. Reason for contiued inpatient stay Substantial Risk for: inability to function, rapid decompensation and med/psych decompensation
[2022-01-22] MEDS: ARIPiprazole 5 MG TABLET PO (16:50)
[2022-01-22] MEDS: Atorvastatin Calcium 10 MG TABLET PO (20:16)
[2022-01-22] MEDS: Sertraline HCL 50 MG TABLET 150 MG PO (20:16)
[2022-01-23] MEDS: Levothyroxine Sodium 75 MCG TABLET PO (05:30)
[2022-01-23 06:00] VITALS: BP 116/55; PULSE 62; RESP 16; TEMP 37.2; O2SAT 92
--- NOTE | 2022-01-23 06:05 | PC.NURSE ---
PT up to use BR and received a skin tear to L hand due to removing PT sweatshirt. Cleansed with normal saline xeroform and Tegaderm dressing applied.
[2022-01-23 07:00] VITALS: BMI 17.4
[2022-01-23] MEDS: Multivitamin TABLET 1 TAB PO (09:31)
[2022-01-23] MEDS: Ferrous Sulfate 324 MG TABLET.DR PO (09:31)
[2022-01-23] MEDS: calcium polycarbophiL TABLET 2 TAB PO (09:31)
[2022-01-23] MEDS: Donepezil HCl 10 MG TABLET PO (09:32)
[2022-01-23] MEDS: ARIPiprazole 5 MG TABLET PO (16:32)
--- NOTE | 2022-01-23 16:38 | HO.PSYCHPN ---
Subjective Subjective Date of Service: 01/23/22 Reason For Visit: Change mental status/depression Subjective Notes: Conditional Voluntary Interim History: The nursing staff reported the the nursing staff reported the patient has been on his room most of the time. On interview the patient was slightly confused but with spontaneous speech. Mental Status Exam Mental Status Exam Patient Appearance: Well Grooomed Patient Orientation: Person and Situation Level of Consciousness: Awake Patient Behavior: Cooperative Mood Description: Withdrawn Affect Description: Constricted Patient Cognition Impaired: Yes Ability to Follow Directions: Good Speech Pattern: Clear Hallucinations: None Delusions: Paranoid Ideation Thought Process: Distracted Thought Content: positive for [place] and positive for Poverty of Content Judgement: Fair Diagnostics Vital Signs (24Hr): Vital Signs - 24 hr 01/22/22 19:44 01/23/22 06:00 Temperature 99 F 98.9 F Pulse Rate 82 62 Respiratory Rate 16 Blood Pressure 100/59 L 116/55 L Pulse Oximetry 94 92 Oxygen Delivery Method Room Air BMI result Body Mass Index 17.9 Labs Results: 01/09/22 19:54 01/09/22 19:54 Imaging Radiology Impressions: ITS Impressions Head CT 01/09/22 19:11 IMPRESSION: Moderate to large left scalp hematoma without calvarial fracture. No acute intracranial process seen. No left rib fracture abnormality seen. The lungs are clear Ribs X-Ray 01/09/22 19:17 IMPRESSION: Moderate to large left scalp hematoma without calvarial fracture. No acute intracranial process seen. No left rib fracture abnormality seen. The lungs are clear Medications Medications Current Medications Acetaminophen (Acetaminophen 325 Mg Tablet) 650 mg PO Q8H PRN PRN Reason: Pain Acetaminophen (Acetaminophen 325 Mg Tablet) 650 mg PO Q6H PRN PRN Reason: Headache/Pain Mild Scale (1-3) Last Admin: 01/20/22 00:56 Dose: 650 mg Acetaminophen (Acetaminophen 325 Mg Tablet) 650 mg PO ONCE PRN PRN Reason: Pain, Mild (Pain Scale 1-3) Al Hydroxide/Mg Hydroxide (Magnesium Hydrox/Alum Hydrox 30 Ml Oral.Susp) 30 ml PO Q6H PRN PRN Reason: Heartburn/Nausea Aripiprazole (Aripiprazole 5 Mg Tablet) 5 mg PO DAILY@1600 [facility] Last Admin: 01/23/22 16:32 Dose: 5 mg Atorvastatin Calcium (Atorvastatin Calcium 10 Mg Tablet) 10 mg PO BEDTIME [facility] Last Admin: 01/22/22 20:16 Dose: 10 mg Calcium Polycarbophil (Calcium Polycarbophil Tablet) 2 tab PO DAILY [facility] Last Admin: 01/23/22 09:31 Dose: 2 tab Donepezil HCl (Donepezil Hcl 10 Mg Tablet) 10 mg PO DAILY [facility] Last Admin: 01/23/22 09:32 Dose: 10 mg Ferrous Sulfate (Ferrous Sulfate 324 Mg Tablet.) 324 mg PO DAILY [facility] Last Admin: 01/23/22 09:31 Dose: 324 mg Hydroxyzine HCl (Hydroxyzine Hcl 25 Mg Tablet) 25 mg PO BEDTIME PRN PRN Reason: Anxiety Last Admin: 01/20/22 00:56 Dose: 25 mg Levothyroxine Sodium (Levothyroxine Sodium 75 Mcg Tablet) 75 mcg PO DAILY@0630 [facility] Last Admin: 01/23/22 05:30 Dose: 75 mcg Magnesium Hydroxide (Milk Of Magnesia 30 Ml Oral.Susp) 30 ml PO DAILY PRN PRN Reason: Constipation Multivitamins/Vitamin C (Multivitamin Tablet) 1 tab PO DAILY [facility] Last Admin: 01/23/22 09:31 Dose: 1 tab Ondansetron HCl (Ondansetron Hcl 4 Mg/2 Ml Vial) 4 mg IVPUSH ONCE PRN PRN Reason: Nausea and Vomiting Pharmacy Consult (Consult Rx Perform Med Rec) 1 each MISCELLANE ONCE PRN PRN Reason: Consult order Sertraline HCl (Sertraline Hcl 50 Mg Tablet) 150 mg PO BEDTIME [facility] Last Admin: 01/22/22 20:16 Dose: 150 mg Trazodone HCl (Trazodone Hcl 50 Mg Tablet) 50 mg PO BEDTIME PRN PRN Reason: Insomnia Last Admin: 01/20/22 00:56 Dose: 50 mg Allergies Allergies Allergy/AdvReac Type Severity Reaction Status Date / Time No Known Allergies Allergy Verified 12/04/21 10:54 Assessment & Plan Assessment & Plan (1) Orthostatic hypotension: Status: Acute Code(s): I95.1 - Orthostatic hypotension Plan 76 yo M who is admitted to geriatric psych had an unwitnessed fall while getitng up to go to the bathroom. Pt sustained a hematoma on the forehead. Plan 1. Continue same regimen.? 2. EKG for possibility of ECT.? 3.Psychoeducation into treatment options. 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 KEENAN stockings have not come yet. No med changes. Reviewed ECT clearance. 01/19: No med adjustments indicated 01/20: No changes indicated, pt confused but pleasant For EKG clearance: ekg seems fine CT head negative, patient does not have any neurological symptoms currently.? Walking with a walker no dizziness. No obvious contraindication to proceed to ECT at this time, advised to be careful on with the ECT electrodes when put over the hematoma area. 2. Orthostatic hypotension: Not on any medications Keenan stockings PT evaluation when possible. Avoid psychotic medications and blood pressure medication that can cause orthostasis. 3. Hypothyroidism: TSH is borderline elevated, free T4 is normal Continue levothyroxine I spent ___20___ minutes with the patient and/or on the patient floor today, greater than?50% of which was spent counseling/coordinating care. Reason for contiued inpatient stay Substantial Risk for: inability to function, rapid decompensation and med/psych decompensation
[2022-01-23 18:00] VITALS: BP 100/51; PULSE 68; TEMP 37.5; O2SAT 95
[2022-01-23] MEDS: Atorvastatin Calcium 10 MG TABLET PO (21:07)
[2022-01-23] MEDS: Sertraline HCL 50 MG TABLET 150 MG PO (21:07)
[2022-01-24] VITALS (13 sets, daily range): BP systolic 110–157; BP diastolic 57–97; PULSE 52–148; RESP 12–19; TEMP 36.4–37.2; O2SAT 92–100
[2022-01-24] MEDS: Levothyroxine Sodium 75 MCG TABLET PO (05:41)
--- NOTE | 2022-01-24 07:29 | MHC.SHP ---
Pre-Procedural Eval Section A Date of Service: 01/24/22 The patient is an INPATIENT: Yes Changes since office visit: No Cold of Flu in the past 2 weeks, No New Medical Problems, No Changes in Medication and No Patient answered all questions The History & Physical has been completed within 30 days and I have reviewed it.: Yes Section B Chief Complaint: Change mental status/depression Allergies: Allergies Allergy/AdvReac Type Severity Reaction Status Date / Time No Known Allergies Allergy Verified 12/04/21 10:54 Plan I have reviewed the history and physical and performed a pertinent physical examination on my patient. No changes have occurred unless specified.
--- NOTE | 2022-01-24 08:34 | HO.ECTPROC ---
ECT Procedure Note Diagnosis/Treatment Date of Service: 01/24/22 Diagnosis: Major Depressive Disorder Previous ECT Date: 01/22/22 Current Treatment Number: 2 Treatment: Series Interval Clinical Notes: The nursing staff reported that last night he didnt' sleep, was anxious. He is still hypoactive but now he has spontaneous speech. Still very dysphoric with no energy. ECT Settings Device: THYMATRON DGx Electrode Placement: Right Unilateral Program/Pulse Width: 0.25 Energy Percent: 90 Seizure Duration By EEG (in seconds): 63 By Motor Observation (in seconds): 53 Medications Administration General Anesthetic: Etomidate (10) Muscle Relaxant: Succinylcholine (80) Ancillary Medications Analgesics: Torodol - Pre ECT Anti-emetics: Zofran - Pre ECT Cardiovascular Medications: Atropine and Glycopyrrolate Miscillaneous Medications: Propofol Airway Management Airway Management: Bag Mask Ventilation Treatment Recommendations Electrode Placement: Right Unilateral Program/Pulse Width: 0.25 Energy Percent: 80 Notes: No hypotension or any other problems with this session Pt Tolerated Procedure w/o Issue: Yes
[2022-01-24] MEDS: LORazepam 2 MG/ML VIAL 1 MG IVPUSH (09:00)
[2022-01-24] MEDS: Donepezil HCl 10 MG TABLET PO (10:38)
[2022-01-24] MEDS: calcium polycarbophiL TABLET 2 TAB PO (10:38)
[2022-01-24] MEDS: Ferrous Sulfate 324 MG TABLET.DR PO (10:38)
[2022-01-24] MEDS: Multivitamin TABLET 1 TAB PO (10:38)
--- NOTE | 2022-01-24 15:42 | P.PNPSI_ITS ---
Subjective Subjective Date of Service: 01/24/22 Reason For Visit: Change mental status/depression Subjective Notes: Conditional Voluntary Interim History: the nursing staff reported the patient slept poorly and he was hyperverbal and confused. It seems that he was delirious at night. Today we had ECT and he was dysphoric with lack of energy. Mental Status Exam Mental Status Exam Patient Appearance: Appropriate Patient Orientation: Person and Situation Level of Consciousness: Awake Patient Behavior: Asleep and Timid Mood Description: Withdrawn Affect Description: Depressed Patient Cognition Impaired: Yes Ability to Follow Directions: Good Speech Pattern: Clear Hallucinations: None Delusions: Not Present Thought Process: Illogical and Distracted Thought Content: positive for [place] and positive for Poverty of Content Judgement: Fair Diagnostics Vital Signs (24Hr): Vital Signs - 24 hr 01/23/22 18:00 01/24/22 06:47 01/24/22 07:18 Temperature 99.5 F 98.0 F 98.2 F Pulse Rate 68 55 52 Respiratory Rate 12 16 Blood Pressure 100/51 L 117/57 L 135/58 L Pulse Oximetry 95 97 95 Oxygen Delivery Method Room Air Room Air Oxygen Flow Rate 01/24/22 08:38 01/24/22 08:43 01/24/22 08:50 Temperature 98.9 F Pulse Rate 61 108 H 148 H Respiratory Rate 16 19 18 Blood Pressure 151/66 H 152/79 H 123/97 H Pulse Oximetry 100 97 100 Oxygen Delivery Method Nasal Cannula Nasal Cannula Nasal Cannula Oxygen Flow Rate 2 2 2 01/24/22 08:55 01/24/22 09:10 01/24/22 09:25 Temperature Pulse Rate 125 H 108 H 91 Respiratory Rate 18 16 16 Blood Pressure 146/89 H 141/81 H 149/65 H Pulse Oximetry 99 99 99 Oxygen Delivery Method Room Air Room Air Room Air Oxygen Flow Rate 2 2 01/24/22 09:40 01/24/22 09:55 01/24/22 10:25 Temperature 97.5 F Pulse Rate 94 97 98 Respiratory Rate 16 16 16 Blood Pressure 144/65 H 136/91 H 134/68 Pulse Oximetry 99 95 97 Oxygen Delivery Method Room Air Room Air Room Air Oxygen Flow Rate 2 01/24/22 10:46 Temperature 98.4 F Pulse Rate 78 Respiratory Rate 16 Blood Pressure 157/67 H Pulse Oximetry 92 Oxygen Delivery Method Oxygen Flow Rate BMI result Body Mass Index 17.4 Labs Results: 01/09/22 19:54 01/09/22 19:54 Imaging Radiology Impressions: ITS Impressions Head CT 01/09/22 19:11 IMPRESSION: Moderate to large left scalp hematoma without calvarial fracture. No acute intracranial process seen. No left rib fracture abnormality seen. The lungs are clear Ribs X-Ray 01/09/22 19:17 IMPRESSION: Moderate to large left scalp hematoma without calvarial fracture. No acute intracranial process seen. No left rib fracture abnormality seen. The lungs are clear Medications Medications Current Medications Acetaminophen (Acetaminophen 325 Mg Tablet) 650 mg PO Q8H PRN PRN Reason: Pain Acetaminophen (Acetaminophen 325 Mg Tablet) 650 mg PO Q6H PRN PRN Reason: Headache/Pain Mild Scale (1-3) Last Admin: 01/20/22 00:56 Dose: 650 mg Acetaminophen (Acetaminophen 325 Mg Tablet) 650 mg PO ONCE PRN PRN Reason: Pain, Mild (Pain Scale 1-3) Al Hydroxide/Mg Hydroxide (Magnesium Hydrox/Alum Hydrox 30 Ml Oral.Susp) 30 ml PO Q6H PRN PRN Reason: Heartburn/Nausea Aripiprazole (Aripiprazole 5 Mg Tablet) 5 mg PO DAILY@1600 [facility] Last Admin: 01/23/22 16:32 Dose: 5 mg Atorvastatin Calcium (Atorvastatin Calcium 10 Mg Tablet) 10 mg PO BEDTIME [facility] Last Admin: 01/23/22 21:07 Dose: 10 mg Calcium Polycarbophil (Calcium Polycarbophil Tablet) 2 tab PO DAILY [facility] Last Admin: 01/24/22 10:38 Dose: 2 tab Donepezil HCl (Donepezil Hcl 10 Mg Tablet) 10 mg PO DAILY [facility] Last Admin: 01/24/22 10:38 Dose: 10 mg Ferrous Sulfate (Ferrous Sulfate 324 Mg Tablet.Dr) 324 mg PO DAILY [facility] Last Admin: 01/24/22 10:38 Dose: 324 mg Hydroxyzine HCl (Hydroxyzine Hcl 25 Mg Tablet) 25 mg PO BEDTIME PRN PRN Reason: Anxiety Last Admin: 01/20/22 00:56 Dose: 25 mg Levothyroxine Sodium (Levothyroxine Sodium 75 Mcg Tablet) 75 mcg PO DAILY@0630 [facility] Last Admin: 01/24/22 05:41 Dose: 75 mcg Magnesium Hydroxide (Milk Of Magnesia 30 Ml Oral.Susp) 30 ml PO DAILY PRN PRN Reason: Constipation Multivitamins/Vitamin C (Multivitamin Tablet) 1 tab PO DAILY [facility] Last Admin: 01/24/22 10:38 Dose: 1 tab Ondansetron HCl (Ondansetron Hcl 4 Mg/2 Ml Vial) 4 mg IVPUSH ONCE PRN PRN Reason: Nausea and Vomiting Pharmacy Consult (Consult Rx Perform Med Rec) 1 each MISCELLANE ONCE PRN PRN Reason: Consult order Sertraline HCl (Sertraline Hcl 50 Mg Tablet) 150 mg PO BEDTIME [facility] Last Admin: 01/23/22 21:07 Dose: 150 mg Trazodone HCl (Trazodone Hcl 50 Mg Tablet) 50 mg PO BEDTIME PRN PRN Reason: Insomnia Last Admin: 01/20/22 00:56 Dose: 50 mg Allergies Allergies Allergy/AdvReac Type Severity Reaction Status Date / Time No Known Allergies Allergy Verified 12/04/21 10:54 Assessment & Plan Assessment & Plan (1) Orthostatic hypotension: Status: Acute Code(s): I95.1 - Orthostatic hypotension Plan 76 yo M who is admitted to geriatric psych had an unwitnessed fall while getitng up to go to the bathroom. Pt sustained a hematoma on the forehead. Plan 1. Continue same regimen.? 2. ECT for Thursday For EKG clearance: ekg seems fine CT head negative, patient does not have any neurological symptoms currently.? Walking with a walker no dizziness. No obvious contraindication to proceed to ECT at this time, advised to be careful on with the ECT electrodes when put over the hematoma area. 2. Orthostatic hypotension: Not on any medications Keenan stockings PT evaluation when possible. Avoid psychotic medications and blood pressure medication that can cause orthostasis. 3. Hypothyroidism: TSH is borderline elevated, free T4 is normal Continue levothyroxine I spent minutes with the patient and/or on the patient floor today, greater than?50% of which was spent counseling/coordinating care. Reason for contiued inpatient stay Substantial Risk for: inability to function, rapid decompensation and med/psych decompensation
[2022-01-24] MEDS: ARIPiprazole 5 MG TABLET PO (17:18)
[2022-01-24] MEDS: Atorvastatin Calcium 10 MG TABLET PO (20:29)
[2022-01-24] MEDS: Sertraline HCL 50 MG TABLET 150 MG PO (20:29)
[2022-01-25] MEDS: Levothyroxine Sodium 75 MCG TABLET PO (06:00)
[2022-01-25 08:00] VITALS: BP 103/55; PULSE 56; RESP 16; TEMP 36.3; O2SAT 95
[2022-01-25] MEDS: Donepezil HCl 10 MG TABLET PO (08:30)
[2022-01-25] MEDS: Multivitamin TABLET 1 TAB PO (08:30)
[2022-01-25] MEDS: Ferrous Sulfate 324 MG TABLET.DR PO (08:30)
[2022-01-25] MEDS: calcium polycarbophiL TABLET 2 TAB PO (08:55)
[2022-01-25] MEDS: Acetaminophen 325 MG TABLET 650 MG PO (09:31)
--- NOTE | 2022-01-25 12:14 | HO.PSYCHPN ---
Subjective Subjective Date of Service: 01/25/22 Reason For Visit: Change mental status/depression Interim History: calm, cooperative, pleasant. no questions or complaints. 1:1 by side. per staff, had ECT on thursday. slept well last night. on 1:1 for fall risk, s/p fall on unit. Mental Status Exam Mental Status Exam Narrative: dressed in [facility]. large bruises over left face/orbit/forehead. cooperative. no PMA/PMR. speech WNL. thoughts linear and logical. affect constricted. mood not assessed. no SI/HI/AVH expressed. Diagnostics Vital Signs (24Hr): Vital Signs - 24 hr 01/24/22 18:00 01/25/22 08:00 Temperature 98.2 F 97.4 F Pulse Rate 83 56 Respiratory Rate 16 16 Blood Pressure 110/60 103/55 L Pulse Oximetry 92 95 Oxygen Delivery Method Room Air Room Air BMI result Body Mass Index 17.4 Labs Results: 01/09/22 19:54 01/09/22 19:54 Imaging Radiology Impressions: ITS Impressions Head CT 01/09/22 19:11 IMPRESSION: Moderate to large left scalp hematoma without calvarial fracture. No acute intracranial process seen. No left rib fracture abnormality seen. The lungs are clear Ribs X-Ray 01/09/22 19:17 IMPRESSION: Moderate to large left scalp hematoma without calvarial fracture. No acute intracranial process seen. No left rib fracture abnormality seen. The lungs are clear Medications Medications Current Medications Acetaminophen (Acetaminophen 325 Mg Tablet) 650 mg PO Q8H PRN PRN Reason: Pain Acetaminophen (Acetaminophen 325 Mg Tablet) 650 mg PO Q6H PRN PRN Reason: Headache/Pain Mild Scale (1-3) Last Admin: 01/25/22 09:31 Dose: 650 mg Acetaminophen (Acetaminophen 325 Mg Tablet) 650 mg PO ONCE PRN PRN Reason: Pain, Mild (Pain Scale 1-3) Al Hydroxide/Mg Hydroxide (Magnesium Hydrox/Alum Hydrox 30 Ml Oral.Susp) 30 ml PO Q6H PRN PRN Reason: Heartburn/Nausea Aripiprazole (Aripiprazole 5 Mg Tablet) 5 mg PO DAILY@1600 [facility] Last Admin: 01/24/22 17:18 Dose: 5 mg Atorvastatin Calcium (Atorvastatin Calcium 10 Mg Tablet) 10 mg PO BEDTIME [facility] Last Admin: 01/24/22 20:29 Dose: 10 mg Calcium Polycarbophil (Calcium Polycarbophil Tablet) 2 tab PO DAILY [facility] Last Admin: 01/25/22 08:55 Dose: 2 tab Donepezil HCl (Donepezil Hcl 10 Mg Tablet) 10 mg PO DAILY [facility] Last Admin: 01/25/22 08:30 Dose: 10 mg Ferrous Sulfate (Ferrous Sulfate 324 Mg Tablet.) 324 mg PO DAILY [facility] Last Admin: 01/25/22 08:30 Dose: 324 mg Hydroxyzine HCl (Hydroxyzine Hcl 25 Mg Tablet) 25 mg PO BEDTIME PRN PRN Reason: Anxiety Last Admin: 01/20/22 00:56 Dose: 25 mg Levothyroxine Sodium (Levothyroxine Sodium 75 Mcg Tablet) 75 mcg PO DAILY@0630 [facility] Last Admin: 01/25/22 06:00 Dose: 75 mcg Magnesium Hydroxide (Milk Of Magnesia 30 Ml Oral.Susp) 30 ml PO DAILY PRN PRN Reason: Constipation Multivitamins/Vitamin C (Multivitamin Tablet) 1 tab PO DAILY [facility] Last Admin: 01/25/22 08:30 Dose: 1 tab Ondansetron HCl (Ondansetron Hcl 4 Mg/2 Ml Vial) 4 mg IVPUSH ONCE PRN PRN Reason: Nausea and Vomiting Pharmacy Consult (Consult Rx Perform Med Rec) 1 each MISCELLANE ONCE PRN PRN Reason: Consult order Sertraline HCl (Sertraline Hcl 50 Mg Tablet) 150 mg PO BEDTIME [facility] Last Admin: 01/24/22 20:29 Dose: 150 mg Trazodone HCl (Trazodone Hcl 50 Mg Tablet) 50 mg PO BEDTIME PRN PRN Reason: Insomnia Last Admin: 01/20/22 00:56 Dose: 50 mg Allergies Allergies Allergy/AdvReac Type Severity Reaction Status Date / Time No Known Allergies Allergy Verified 12/04/21 10:54 Assessment & Plan Assessment & Plan (1) Orthostatic hypotension: Status: Acute Code(s): I95.1 - Orthostatic hypotension Plan 76 yo M who is admitted to geriatric psych had an unwitnessed fall while getitng up to go to the bathroom. Pt sustained a hematoma on the forehead. Plan 1. Continue same regimen.? 2. ECT for Thursday For EKG clearance: ekg seems fine CT head negative, patient does not have any neurological symptoms currently.? Walking with a walker no dizziness. No obvious contraindication to proceed to ECT at this time, advised to be careful on with the ECT electrodes when put over the hematoma area. 2. Orthostatic hypotension: Not on any medications [employer] stockings PT evaluation when possible. Avoid psychotic medications and blood pressure medication that can cause orthostasis. 3. Hypothyroidism: TSH is borderline elevated, free T4 is normal Continue levothyroxine 01/25: no change in mgmt. I spent __10____ minutes with the patient and/or on the patient floor today, greater than?50% of which was spent counseling/coordinating care. Reason for contiued inpatient stay Substantial Risk for: inability to function and rapid decompensation
[2022-01-25] MEDS: ARIPiprazole 5 MG TABLET PO (16:03)
[2022-01-25 18:00] VITALS: BP 98/60; PULSE 77; RESP 16; TEMP 36.9; O2SAT 96
[2022-01-25] MEDS: Atorvastatin Calcium 10 MG TABLET PO (20:22)
[2022-01-25] MEDS: Sertraline HCL 50 MG TABLET 150 MG PO (20:23)
[2022-01-26] MEDS: Levothyroxine Sodium 75 MCG TABLET PO (05:55)
[2022-01-26 08:30] VITALS: BP 112/53; PULSE 53; RESP 16; TEMP 36.4; O2SAT 95
[2022-01-26] MEDS: calcium polycarbophiL TABLET 2 TAB PO (08:42)
[2022-01-26] MEDS: Donepezil HCl 10 MG TABLET PO (08:43)
[2022-01-26] MEDS: Ferrous Sulfate 324 MG TABLET.DR PO (08:43)
[2022-01-26] MEDS: Multivitamin TABLET 1 TAB PO (08:43)
--- NOTE | 2022-01-26 12:22 | HO.PSYCHPN ---
Subjective Subjective Date of Service: 01/26/22 Reason For Visit: Change mental status/depression Interim History: pt seen sunning himself on the patio. calm, cooperative, smiling. reports he is improving. planning on another ECT Tx tomorrow. no complaints or requests. per staff, doing well today. more flexible affect, steadier. showered. Mental Status Exam Mental Status Exam Narrative: dressed in [facility]. large bruises over left face/orbit/forehead. cooperative. no PMA/PMR. speech WNL. thoughts linear and logical. affect full range and normo-intense. mood improved. no SI/HI/AVH expressed. Diagnostics Vital Signs (24Hr): Vital Signs - 24 hr 01/25/22 18:00 01/26/22 08:30 Temperature 98.4 F 97.6 F Pulse Rate 77 53 Respiratory Rate 16 16 Blood Pressure 98/60 112/53 L Pulse Oximetry 96 95 Oxygen Delivery Method Room Air Room Air BMI result Body Mass Index 17.4 Labs Results: 01/09/22 19:54 01/09/22 19:54 Imaging Radiology Impressions: ITS Impressions Head CT 01/09/22 19:11 IMPRESSION: Moderate to large left scalp hematoma without calvarial fracture. No acute intracranial process seen. No left rib fracture abnormality seen. The lungs are clear Ribs X-Ray 01/09/22 19:17 IMPRESSION: Moderate to large left scalp hematoma without calvarial fracture. No acute intracranial process seen. No left rib fracture abnormality seen. The lungs are clear Medications Medications Current Medications Acetaminophen (Acetaminophen 325 Mg Tablet) 650 mg PO Q8H PRN PRN Reason: Pain Acetaminophen (Acetaminophen 325 Mg Tablet) 650 mg PO Q6H PRN PRN Reason: Headache/Pain Mild Scale (1-3) Last Admin: 01/25/22 09:31 Dose: 650 mg Acetaminophen (Acetaminophen 325 Mg Tablet) 650 mg PO ONCE PRN PRN Reason: Pain, Mild (Pain Scale 1-3) Al Hydroxide/Mg Hydroxide (Magnesium Hydrox/Alum Hydrox 30 Ml Oral.Susp) 30 ml PO Q6H PRN PRN Reason: Heartburn/Nausea Aripiprazole (Aripiprazole 5 Mg Tablet) 5 mg PO DAILY@1600 [facility] Last Admin: 01/25/22 16:03 Dose: 5 mg Atorvastatin Calcium (Atorvastatin Calcium 10 Mg Tablet) 10 mg PO BEDTIME [facility] Last Admin: 01/25/22 20:22 Dose: 10 mg Calcium Polycarbophil (Calcium Polycarbophil Tablet) 2 tab PO DAILY [facility] Last Admin: 01/26/22 08:42 Dose: 2 tab Donepezil HCl (Donepezil Hcl 10 Mg Tablet) 10 mg PO DAILY [facility] Last Admin: 01/26/22 08:43 Dose: 10 mg Ferrous Sulfate (Ferrous Sulfate 324 Mg Tablet.Dr) 324 mg PO DAILY [facility] Last Admin: 01/26/22 08:43 Dose: 324 mg Hydroxyzine HCl (Hydroxyzine Hcl 25 Mg Tablet) 25 mg PO BEDTIME PRN PRN Reason: Anxiety Last Admin: 01/20/22 00:56 Dose: 25 mg Levothyroxine Sodium (Levothyroxine Sodium 75 Mcg Tablet) 75 mcg PO DAILY@0630 [facility] Last Admin: 01/26/22 05:55 Dose: 75 mcg Magnesium Hydroxide (Milk Of Magnesia 30 Ml Oral.Susp) 30 ml PO DAILY PRN PRN Reason: Constipation Multivitamins/Vitamin C (Multivitamin Tablet) 1 tab PO DAILY [facility] Last Admin: 01/26/22 08:43 Dose: 1 tab Ondansetron HCl (Ondansetron Hcl 4 Mg/2 Ml Vial) 4 mg IVPUSH ONCE PRN PRN Reason: Nausea and Vomiting Pharmacy Consult (Consult Rx Perform Med Rec) 1 each MISCELLANE ONCE PRN PRN Reason: Consult order Sertraline HCl (Sertraline Hcl 50 Mg Tablet) 150 mg PO BEDTIME [facility] Last Admin: 01/25/22 20:23 Dose: 150 mg Trazodone HCl (Trazodone Hcl 50 Mg Tablet) 50 mg PO BEDTIME PRN PRN Reason: Insomnia Last Admin: 01/20/22 00:56 Dose: 50 mg Allergies Allergies Allergy/AdvReac Type Severity Reaction Status Date / Time No Known Allergies Allergy Verified 12/04/21 10:54 Assessment & Plan Assessment & Plan (1) Orthostatic hypotension: Status: Acute Code(s): I95.1 - Orthostatic hypotension Plan 76 yo M who is admitted to geriatric psych had an unwitnessed fall while getitng up to go to the bathroom. Pt sustained a hematoma on the forehead. Plan 1. Continue same regimen.? 2. ECT for Thursday For EKG clearance: ekg seems fine CT head negative, patient does not have any neurological symptoms currently.? Walking with a walker no dizziness. No obvious contraindication to proceed to ECT at this time, advised to be careful on with the ECT electrodes when put over the hematoma area. 2. Orthostatic hypotension: Not on any medications [employer] stock[employer] PT evaluation when possible. Avoid psychotic medications and blood pressure medication that can cause orthostasis. 3. Hypothyroidism: TSH is borderline elevated, free T4 is normal Continue levothyroxine 01/25: no change in mgmt. 01/26: no change in mgmt. I spent ___10___ minutes with the patient and/or on the patient floor today, greater than?50% of which was spent counseling/coordinating care. Reason for contiued inpatient stay Substantial Risk for: harm to self, inability to function and rapid decompensation
[2022-01-26] MEDS: ARIPiprazole 5 MG TABLET PO (15:30)
[2022-01-26 18:00] VITALS: BP 93/44; PULSE 62; RESP 14; TEMP 37; O2SAT 94
[2022-01-26] MEDS: Sertraline HCL 50 MG TABLET 150 MG PO (20:13)
[2022-01-26] MEDS: Atorvastatin Calcium 10 MG TABLET PO (20:13)
[2022-01-27] VITALS (17 sets, daily range): BP systolic 90–169; BP diastolic 46–85; PULSE 53–127; RESP 12–20; TEMP 36.2–37.1; O2SAT 95–100
[2022-01-27] MEDS: Levothyroxine Sodium 75 MCG TABLET PO (05:33)
--- NOTE | 2022-01-27 06:48 | P.CONAN_ITS ---
[facility] Active Problems Active Problems: All Active Problems (Updated 01/09/22 @ 20:20 by Walt Meneses MD) Orthostatic hypotension (Acute) Fall (Acute) Fatigue (Acute) Weight decreased (Acute) Cognitive impairment (Acute) MDD (major depressive disorder), recurrent episode, moderate (Acute) Past Medical History Medical History Depression Depression HLD (hyperlipidemia) HTN (hypertension) Hypothyroidism Prostate cancer Family History Family History Other Prostate cancer Family history of problems with anesthesia: No Surgical History Surgical History H/O prostatectomy History of hernia surgery History of Problems with Anesthesia: No Social History Social History Household Members: Spouse Housing: House Do you presently have visiting nurse or other home services: No Patient Tobacco Use Status: Former Tobacco user Tobacco use type: Cigarette Cigarette Packs Per Day: 1 Cigarettes Per Day: 20.0 Smoked in Last 30 Days: No e-Cigarette/Vaping Use: Never Used Patient Interested in Nicotine Replacement: No Patient Given Instructions on How to Stop Smoking: No Second Hand Smoke Exposure: No Use of substances other than those prescribed or required for medical reasons: No Currently Displaying Signs/Symptoms of Drug Intoxication Withdrawal: No Any prior treatment program specific to substance use: No Have you been hit, kicked, punched, or otherwise hurt by someone within the past year? If so, by whom?: No Do you feel safe in your current relationship?: Yes Is there a partner from a previous relationship who is making you feel unsafe now?: No Are you made to feel afraid or neglected: No Advance Directives: Yes Advance Directives Information Provided: No (declined) Advance Directives on File: No Do you have thoughts of harming others: None Do you have a plan to hurt others: No Plan Recently lost weight without trying: No Nutrition Risks: Emaciation/Cachexia Poor oral hygiene: No service: Yes ([employer]) Sexual orientation: Straight/Heterosexual Meds Allergies Allergy/AdvReac Type Severity Reaction Status Date / Time No Known Allergies Allergy Verified 12/04/21 10:54 Active Medications: Current Medications Acetaminophen (Acetaminophen 325 Mg Tablet) 650 mg PO Q8H PRN PRN Reason: Pain Acetaminophen (Acetaminophen 325 Mg Tablet) 650 mg PO Q6H PRN PRN Reason: Headache/Pain Mild Scale (1-3) Last Admin: 01/25/22 09:31 Dose: 650 mg Acetaminophen (Acetaminophen 325 Mg Tablet) 650 mg PO ONCE PRN PRN Reason: Pain, Mild (Pain Scale 1-3) Al Hydroxide/Mg Hydroxide (Magnesium Hydrox/Alum Hydrox 30 Ml Oral.Susp) 30 ml PO Q6H PRN PRN Reason: Heartburn/Nausea Aripiprazole (Aripiprazole 5 Mg Tablet) 5 mg PO DAILY@1600 [facility] Last Admin: 01/26/22 15:30 Dose: 5 mg Atorvastatin Calcium (Atorvastatin Calcium 10 Mg Tablet) 10 mg PO BEDTIME [facility] Last Admin: 01/26/22 20:13 Dose: 10 mg Calcium Polycarbophil (Calcium Polycarbophil Tablet) 2 tab PO DAILY [facility] Last Admin: 01/26/22 08:42 Dose: 2 tab Donepezil HCl (Donepezil Hcl 10 Mg Tablet) 10 mg PO DAILY [facility] Last Admin: 01/26/22 08:43 Dose: 10 mg Ferrous Sulfate (Ferrous Sulfate 324 Mg Tablet.Dr) 324 mg PO DAILY [facility] Last Admin: 01/26/22 08:43 Dose: 324 mg Hydroxyzine HCl (Hydroxyzine Hcl 25 Mg Tablet) 25 mg PO BEDTIME PRN PRN Reason: Anxiety Last Admin: 01/20/22 00:56 Dose: 25 mg Levothyroxine Sodium (Levothyroxine Sodium 75 Mcg Tablet) 75 mcg PO DAILY@0630 [facility] Last Admin: 01/27/22 05:33 Dose: 75 mcg Magnesium Hydroxide (Milk Of Magnesia 30 Ml Oral.Susp) 30 ml PO DAILY PRN PRN Reason: Constipation Multivitamins/Vitamin C (Multivitamin Tablet) 1 tab PO DAILY [facility] Last Admin: 01/26/22 08:43 Dose: 1 tab Ondansetron HCl (Ondansetron Hcl 4 Mg/2 Ml Vial) 4 mg IVPUSH ONCE PRN PRN Reason: Nausea and Vomiting Pharmacy Consult (Consult Rx Perform Med Rec) 1 each MISCELLANE ONCE PRN PRN Reason: Consult order Sertraline HCl (Sertraline Hcl 50 Mg Tablet) 150 mg PO BEDTIME [facility] Last Admin: 01/26/22 20:13 Dose: 150 mg Trazodone HCl (Trazodone Hcl 50 Mg Tablet) 50 mg PO BEDTIME PRN PRN Reason: Insomnia Last Admin: 01/20/22 00:56 Dose: 50 mg Home Medications Medication Instructions Recorded Confirmed Last Taken Type acetaminophen 650 mg 650 mg PO Q8H PRN Pain 04/04/21 12/31/21 12/29/21 History tablet,extended release sertraline 100 mg tablet 100 mg PO BEDTIME 12/04/21 12/31/21 12/29/21 History aripiprazole 10 mg tablet 1 tab PO DAILY 12/31/21 12/31/21 12/29/21 History donepezil 10 mg tablet 1 tab PO DAILY 12/31/21 12/31/21 12/29/21 History ferrous sulfate 325 mg (65 mg 325 mg PO DAILY 12/31/21 12/31/21 12/29/21 History iron) tablet mirtazapine 15 mg tablet 1 tab PO BEDTIME 12/31/21 12/31/21 12/29/21 History Exam Exam Date and Time: January 27, 2022 0648 Height,Weight and Vital Signs: Height 6 ft Weight 58.4 kg Last Vital Signs Temp 98.3 F 01/27/22 06:36 Pulse 58 01/27/22 06:36 Resp 18 01/27/22 06:36 BP 141/67 H 01/27/22 06:36 Pulse Ox 97 01/27/22 06:36 O2 Del Method 01/27/22 06:36 O2 Flow Rate 2 01/24/22 09:40 Pertinent Lab Results Pertinent Lab Results: Laboratory Tests 12/30/21 12/30/21 12/30/21 22:53 22:53 23:59 WBC 4.5 L RBC 4.01 L Hgb 12.8 L Hct 38.9 L MCV 97.0 MCH 31.9 MCHC 32.9 RDW 13.2 Plt Count 146 L MPV 9.5 Immature Gran % (Auto) 0.2 Neut % (Auto) 75.1 H Lymph % (Auto) 17.1 L [place] % (Auto) 6.7 Eos % (Auto) 0.7 Baso % (Auto) 0.2 Lymph # (Auto) 0.8 L [place] # (Auto) 0.3 Eos # (Auto) 0.0 Baso # (Auto) 0.0 Abs Immat Gran (auto) 0.01 Absolute Neuts (auto) 3.4 Absolute Nucleated RBC 0.000 Nucleated RBC % (auto) 0.0 Sodium 142 Potassium 4.2 Chloride 99 Carbon Dioxide 34 H Anion Gap 13 BUN 26 H Creatinine 0.94 Estim Creat Clear Calc 54.7 Estimated GFR > 60 Random Glucose 158 H D Fasting Glucose Calcium 9.4 Iron TIBC % Saturation Unsat Iron Binding Total Bilirubin 0.5 AST 30 D ALT 37 Alkaline Phosphatase 61 Total Protein 6.8 Albumin 4.1 Triglycerides Cholesterol LDL Cholesterol, Calc HDL Cholesterol Vitamin B12 Folate TSH Free T4 Urine Color YELLOW Urine Appearance CLEAR Urine pH 6.0 Ur Specific [place] 1.020 Urine Protein NEG Urine Glucose (UA) NEG Urine Ketones 5 Urine Blood NEG Urine Nitrite NEG Ur Leukocyte Esterase NEG COVID-19 (BEV) COVID-[employer] 01/01/22 01/01/22 01/01/22 12:17 12:17 14:18 WBC RBC Hgb Hct MCV MCH MCHC RDW Plt Count MPV Immature Gran % (Auto) Neut % (Auto) Lymph % (Auto) [place] % (Auto) Eos % (Auto) Baso % (Auto) Lymph # (Auto) [place] # (Auto) Eos # (Auto) Baso # (Auto) Abs Immat Gran (auto) Absolute Neuts (auto) Absolute Nucleated RBC Nucleated RBC % (auto) Sodium Potassium Chloride Carbon Dioxide Anion Gap BUN Creatinine Estim Creat Clear Calc Estimated GFR Random Glucose Fasting Glucose Calcium Iron TIBC % Saturation Unsat Iron Binding Total Bilirubin AST ALT Alkaline Phosphatase Total Protein Albumin Triglycerides Cholesterol LDL Cholesterol, Calc HDL Cholesterol Vitamin B12 1416 H Folate > 20.0 TSH 4.20 H Free T4 1.07 Urine Color Urine Appearance Urine pH Ur Specific [place] Urine Protein Urine Glucose (UA) Urine Ketones Urine Blood Urine Nitrite Ur Leukocyte Esterase COVID-19 (BEV) Negative COVID-19 [employer] Com See Note 01/02/22 01/05/22 01/09/22 08:00 18:14 19:54 WBC 5.7 RBC 3.78 L Hgb 11.9 L Hct 36.6 L MCV 96.8 MCH 31.5 MCHC 32.5 RDW 13.4 Plt Count 189 D MPV 9.3 L Immature Gran % (Auto) 0.4 Neut % (Auto) 77.4 H Lymph % (Auto) 12.5 L [place] % (Auto) 7.5 Eos % (Auto) 1.8 Baso % (Auto) 0.4 Lymph # (Auto) 0.7 L [place] # (Auto) 0.4 Eos # (Auto) 0.1 Baso # (Auto) 0.0 Abs Immat Gran (auto) 0.02 Absolute Neuts (auto) 4.4 Absolute Nucleated RBC 0.000 Nucleated RBC % (auto) 0.0 Sodium 140 Potassium 3.9 Chloride 102 Carbon Dioxide 32 H Anion Gap 10 L BUN 24 H Creatinine 0.81 Estim Creat Clear Calc 63.5 Estimated GFR > 60 Random Glucose Fasting Glucose 82 Calcium 9.1 Iron 28 L TIBC 229 % Saturation 12 L Unsat Iron Binding 201 Total Bilirubin 0.3 AST 29 ALT 33 Alkaline Phosphatase 54 Total Protein 6.1 L Albumin 3.7 Triglycerides 85 Cholesterol 151 LDL Cholesterol, Calc 88 HDL Cholesterol 46 Vitamin B12 Folate TSH Free T4 Urine Color Urine Appearance Urine pH Ur Specific [place] Urine Protein Urine Glucose (UA) Urine Ketones Urine Blood Urine Nitrite Ur Leukocyte Esterase COVID-19 (BEV) COVID-19 [employer] Com 01/09/22 19:54 WBC RBC Hgb Hct MCV MCH MCHC RDW Plt Count MPV Immature Gran % (Auto) Neut % (Auto) Lymph % (Auto) [place] % (Auto) Eos % (Auto) Baso % (Auto) Lymph # (Auto) [place] # (Auto) Eos # (Auto) Baso # (Auto) Abs Immat Gran (auto) Absolute Neuts (auto) Absolute Nucleated RBC Nucleated RBC % (auto) Sodium 142 Potassium 4.2 Chloride 102 Carbon Dioxide 31 H Anion Gap 13 BUN 32 H Creatinine 0.77 Estim Creat Clear Calc 66.8 Estimated GFR > 60 Random Glucose 105 Fasting Glucose Calcium 8.9 Iron TIBC % Saturation Unsat Iron Binding Total Bilirubin AST ALT Alkaline Phosphatase Total Protein Albumin Triglycerides Cholesterol LDL Cholesterol, Calc HDL Cholesterol Vitamin B12 Folate TSH Free T4 Urine Color Urine Appearance Urine pH Ur Specific [place] Urine Protein Urine Glucose (UA) Urine Ketones Urine Blood Urine Nitrite Ur Leukocyte Esterase COVID-19 (BEV) COVID-19 Clin Com Airway Mallampati Class: II (3 implants on bottom front) TM Dist: >3cm Neck ROM: Full Heart: rrr Lungs: cta Assessment and Plan Assessment Anesthesia Assessment: Anesthesia Plan Discussed and Chart Reviewed Final Anesthetic Review Family History of Problems with Anesthesia: No History of Problems with Anesthesia: No NPO: Yes ASA Class: III Final Preanesthetic Review: No Changes in Pt Med Stat, Meds/Allgs Chart Reviewed and Consent Obtained/Reviewed Patient Risk: Intermediate Procedure Risk: Intermediate Anesthetic Plan Anesthetic Plan: GA Disposition: Standard PACU
--- NOTE | 2022-01-27 07:43 | MHC.SHP ---
Pre-Procedural Eval Section A Date of Service: 01/27/22 The patient is an INPATIENT: Yes Changes since office visit: No Cold of Flu in the past 2 weeks, No New Medical Problems, No Changes in Medication and No Patient answered all questions The History & Physical has been completed within 30 days and I have reviewed it.: Yes Section B Chief Complaint: Change mental status/depression Allergies: Allergies Allergy/AdvReac Type Severity Reaction Status Date / Time No Known Allergies Allergy Verified 12/04/21 10:54 Plan I have reviewed the history and physical and performed a pertinent physical examination on my patient. No changes have occurred unless specified.
--- NOTE | 2022-01-27 08:02 | HO.ECTPROC ---
ECT Procedure Note Diagnosis/Treatment Date of Service: 01/27/22 Diagnosis: Major Depressive Disorder Previous ECT Date: 01/24/22 Current Treatment Number: 3 Treatment: Series Interval Clinical Notes: The patient remains dysphoric but slightly better, a little more active. On interview, he denied side effects ECT Settings Device: THYMATRON DGx Electrode Placement: Right Unilateral Program/Pulse Width: 0.25 Energy Percent: 80 Seizure Duration By EEG (in seconds): 70 Medications Administration General Anesthetic: Etomidate Muscle Relaxant: Succinylcholine Ancillary Medications Analgesics: Torodol - Pre ECT Anti-emetics: Zofran - Pre ECT Cardiovascular Medications: Glycopyrrolate Miscillaneous Medications: Propofol and Midazolam Airway Management Airway Management: Bag Mask Ventilation Treatment Recommendations Electrode Placement: Right Unilateral Program/Pulse Width: 0.25 Energy Percent: 70 Pt Tolerated Procedure w/o Issue: Yes
[2022-01-27] MEDS: Ferrous Sulfate 324 MG TABLET.DR PO (10:08)
[2022-01-27] MEDS: Donepezil HCl 10 MG TABLET PO (10:08)
[2022-01-27] MEDS: Multivitamin TABLET 1 TAB PO (10:08)
[2022-01-27] MEDS: calcium polycarbophiL TABLET 2 TAB PO (10:08)
--- NOTE | 2022-01-27 15:43 | P.PNPSI_ITS ---
Subjective Subjective Date of Service: 01/27/22 Reason For Visit: Change mental status/depression Subjective Notes: Conditional Voluntary Interim History: The nursing staff reported the over the weekend he was much better with a brighter affect, even joking at times. He was seen more new open areas. On interview the patient denies new symptoms he denies side effects with ECT. Mental Status Exam Mental Status Exam Patient Appearance: Well Grooomed Patient Orientation: Person and Situation Level of Consciousness: Awake Patient Behavior: Cooperative Mood Description: Calm Affect Description: Withdrawn Patient Cognition Impaired: Yes Ability to Follow Directions: Good Speech Pattern: Clear Hallucinations: None Delusions: Not Present Thought Process: Linear Thought Content: positive for Circumstantial Judgement: Fair Diagnostics Vital Signs (24Hr): Vital Signs - 24 hr 01/26/22 18:00 01/27/22 05:48 01/27/22 05:49 Temperature 98.6 F 98.6 F 98.6 F Pulse Rate 62 64 64 Respiratory Rate 14 16 16 Blood Pressure 93/44 L 115/58 L 115/58 L Pulse Oximetry 94 95 95 Oxygen Delivery Method Room Air Room Air Oxygen Flow Rate 01/27/22 06:36 01/27/22 08:08 01/27/22 08:13 Temperature 98.3 F 98.4 F Pulse Rate 58 57 83 Respiratory Rate 18 12 12 Blood Pressure 141/67 H 159/47 H 92/53 L Pulse Oximetry 97 100 100 Oxygen Delivery Method Room Air Nasal Cannula Nasal Cannula Oxygen Flow Rate 2 2 01/27/22 08:18 01/27/22 08:23 01/27/22 08:38 Temperature Pulse Rate 83 127 H 99 Respiratory Rate 14 14 20 Blood Pressure 90/54 L 136/80 169/85 H Pulse Oximetry 99 99 97 Oxygen Delivery Method Nasal Cannula Nasal Cannula Nasal Cannula Oxygen Flow Rate 2 2 2 01/27/22 08:53 01/27/22 09:08 01/27/22 09:23 Temperature Pulse Rate 88 73 72 Respiratory Rate 20 16 16 Blood Pressure 133/80 120/60 116/61 Pulse Oximetry 98 99 97 Oxygen Delivery Method Nasal Cannula Room Air Room Air Oxygen Flow Rate 2 01/27/22 09:36 Temperature 97.2 F Pulse Rate 69 Respiratory Rate 17 Blood Pressure 125/54 L Pulse Oximetry 96 Oxygen Delivery Method Room Air Oxygen Flow Rate BMI result Body Mass Index 17.4 Labs Results: 01/09/22 19:54 06/23/22 19:54 Imaging Radiology Impressions: ITS Impressions Head CT 01/09/22 19:11 IMPRESSION: Moderate to large left scalp hematoma without calvarial fracture. No acute intracranial process seen. No left rib fracture abnormality seen. The lungs are clear Ribs X-Ray 01/09/22 19:17 IMPRESSION: Moderate to large left scalp hematoma without calvarial fracture. No acute intracranial process seen. No left rib fracture abnormality seen. The lungs are clear Medications Medications Current Medications Acetaminophen (Acetaminophen 325 Mg Tablet) 650 mg PO Q8H PRN PRN Reason: Pain Acetaminophen (Acetaminophen 325 Mg Tablet) 650 mg PO Q6H PRN PRN Reason: Headache/Pain Mild Scale (1-3) Last Admin: 01/25/22 09:31 Dose: 650 mg Al Hydroxide/Mg Hydroxide (Magnesium Hydrox/Alum Hydrox 30 Ml Oral.Susp) 30 ml PO Q6H PRN PRN Reason: Heartburn/Nausea Aripiprazole (Aripiprazole 5 Mg Tablet) 5 mg PO DAILY@1600 [facility] Last Admin: 01/26/22 15:30 Dose: 5 mg Atorvastatin Calcium (Atorvastatin Calcium 10 Mg Tablet) 10 mg PO BEDTIME [facility] Last Admin: 01/26/22 20:13 Dose: 10 mg Calcium Polycarbophil (Calcium Polycarbophil Tablet) 2 tab PO DAILY [facility] Last Admin: 01/27/22 10:08 Dose: 2 tab Donepezil HCl (Donepezil Hcl 10 Mg Tablet) 10 mg PO DAILY [facility] Last Admin: 01/27/22 10:08 Dose: 10 mg Ferrous Sulfate (Ferrous Sulfate 324 Mg Tablet.) 324 mg PO DAILY [facility] Last Admin: 01/27/22 10:08 Dose: 324 mg Hydroxyzine HCl (Hydroxyzine Hcl 25 Mg Tablet) 25 mg PO BEDTIME PRN PRN Reason: Anxiety Last Admin: 01/20/22 00:56 Dose: 25 mg Levothyroxine Sodium (Levothyroxine Sodium 75 Mcg Tablet) 75 mcg PO DAILY@0630 [facility] Last Admin: 01/27/22 05:33 Dose: 75 mcg Magnesium Hydroxide (Milk Of Magnesia 30 Ml Oral.Susp) 30 ml PO DAILY PRN PRN Reason: Constipation Multivitamins/Vitamin C (Multivitamin Tablet) 1 tab PO DAILY [facility] Last Admin: 01/27/22 10:08 Dose: 1 tab Ondansetron HCl (Ondansetron Hcl 4 Mg/2 Ml Vial) 4 mg IVPUSH ONCE PRN PRN Reason: Nausea and Vomiting Pharmacy Consult (Consult Rx Perform Med Rec) 1 each MISCELLANE ONCE PRN PRN Reason: Consult order Sertraline HCl (Sertraline Hcl 50 Mg Tablet) 150 mg PO BEDTIME [facility] Last Admin: 01/26/22 20:13 Dose: 150 mg Trazodone HCl (Trazodone Hcl 50 Mg Tablet) 50 mg PO BEDTIME PRN PRN Reason: Insomnia Last Admin: 01/20/22 00:56 Dose: 50 mg Allergies Allergies Allergy/AdvReac Type Severity Reaction Status Date / Time No Known Allergies Allergy Verified 12/04/21 10:54 Assessment & Plan Assessment & Plan (1) Orthostatic hypotension: Status: Acute Code(s): I95.1 - Orthostatic hypotension Plan 76 yo M who is admitted to geriatric psych had an unwitnessed fall while getitng up to go to the bathroom. Pt sustained a hematoma on the forehead. Plan 1. Continue same regimen.? 2. ECT for Thursday For EKG clearance: ekg seems fine CT head negative, patient does not have any neurological symptoms currently.? Walking with a walker no dizziness. No obvious contraindication to proceed to ECT at this time, advised to be careful on with the ECT electrodes when put over the hematoma area. 2. Orthostatic hypotension: Not on any medications Keenan stockings PT evaluation when possible. Avoid psychotic medications and blood pressure medication that can cause ort hostasis. 3. Hypothyroidism: TSH is borderline elevated, free T4 is normal Continue levothyroxine I spent ___20___ minutes with the patient and/or on the patient floor today, greater than?50% of which was spent counseling/coordinating care. Reason for contiued inpatient stay Substantial Risk for: inability to function, rapid decompensation and med/psych decompensation
[2022-01-27] MEDS: ARIPiprazole 5 MG TABLET PO (17:02)
[2022-01-27] MEDS: Sertraline HCL 50 MG TABLET 150 MG PO (22:35)
[2022-01-27] MEDS: Atorvastatin Calcium 10 MG TABLET PO (22:35)
[2022-01-28] MEDS: Levothyroxine Sodium 75 MCG TABLET PO (06:34)
[2022-01-28 07:50] VITALS: BP 125/71; PULSE 55; RESP 16; TEMP 36.9; O2SAT 95
[2022-01-28 10:02] LABS: COVID-19 Test Negative (Negative); IDNOW Serial# 16C4AD1C
[2022-01-28] MEDS: Multivitamin TABLET 1 TAB PO (10:15)
[2022-01-28] MEDS: Ferrous Sulfate 324 MG TABLET.DR PO (10:15)
[2022-01-28] MEDS: calcium polycarbophiL TABLET 2 TAB PO (10:15)
[2022-01-28] MEDS: Donepezil HCl 10 MG TABLET PO (10:15)
--- NOTE | 2022-01-28 15:01 | P.PNPSI_ITS ---
Subjective Subjective Date of Service: 01/28/22 Reason For Visit: Change mental status/depression Subjective Notes: Conditional Voluntary Interim History: the nursing staff reported the patient has been slightly more active in the unit. He is COVID-19 negative on test today. On interview the patient denies new symptoms he is pleasant and cooperative with a brighter affect than yesterday. Mental Status Exam Mental Status Exam Patient Appearance: Well Grooomed Patient Orientation: Person and Situation Level of Consciousness: Awake Patient Behavior: Cooperative and Passive Mood Description: Withdrawn Affect Description: Constricted Patient Cognition Impaired: Yes Ability to Follow Directions: Good Speech Pattern: Clear Hallucinations: None Delusions: Not Present Thought Process: Distracted Thought Content: positive for [place], positive for Circumstantial and positive for Poverty of Content Judgement: Fair Diagnostics Vital Signs (24Hr): Vital Signs - 24 hr 01/27/22 15:30 01/27/22 15:47 01/27/22 23:34 Temperature 98.7 F Pulse Rate 53 Respiratory Rate Blood Pressure 121/57 L 118/58 L Pulse Oximetry 98 96 Oxygen Delivery Method Room Air Room Air 01/28/22 07:50 Temperature 98.5 F Pulse Rate 55 Respiratory Rate 16 Blood Pressure 125/71 Pulse Oximetry 95 Oxygen Delivery Method Room Air BMI result Body Mass Index 17.4 Labs Results: 01/09/22 19:54 01/09/22 19:54 Labs: Laboratory Results - last 48 hr 01/28/22 09:30 COVID-19 (BEV) Negative COVID-19 Clin Com See Note Imaging Radiology Impressions: ITS Impressions Head CT 01/09/22 19:11 IMPRESSION: Moderate to large left scalp hematoma without calvarial fracture. No acute intracranial process seen. No left rib fracture abnormality seen. The lungs are clear Ribs X-Ray 01/09/22 19:17 IMPRESSION: Moderate to large left scalp hematoma without calvarial fracture. No acute intracranial process seen. No left rib fracture abnormality seen. The lungs are clear Medications Medications Current Medications Acetaminophen (Acetaminophen 325 Mg Tablet) 650 mg PO Q8H PRN PRN Reason: Pain Acetaminophen (Acetaminophen 325 Mg Tablet) 650 mg PO Q6H PRN PRN Reason: Headache/Pain Mild Scale (1-3) Last Admin: 01/25/22 09:31 Dose: 650 mg Al Hydroxide/Mg Hydroxide (Magnesium Hydrox/Alum Hydrox 30 Ml Oral.Susp) 30 ml PO Q6H PRN PRN Reason: Heartburn/Nausea Aripiprazole (Aripiprazole 5 Mg Tablet) 5 mg PO DAILY@1600 [facility] Last Admin: 01/27/22 17:02 Dose: 5 mg Atorvastatin Calcium (Atorvastatin Calcium 10 Mg Tablet) 10 mg PO BEDTIME [facility] Last Admin: 01/27/22 22:35 Dose: 10 mg Calcium Polycarbophil (Calcium Polycarbophil Tablet) 2 tab PO DAILY [facility] Last Admin: 01/28/22 10:15 Dose: 2 tab Donepezil HCl (Donepezil Hcl 10 Mg Tablet) 10 mg PO DAILY [facility] Last Admin: 01/28/22 10:15 Dose: 10 mg Ferrous Sulfate (Ferrous Sulfate 324 Mg Tablet.Dr) 324 mg PO DAILY [facility] Last Admin: 01/28/22 10:15 Dose: 324 mg Hydroxyzine HCl (Hydroxyzine Hcl 25 Mg Tablet) 25 mg PO BEDTIME PRN PRN Reason: Anxiety Last Admin: 01/20/22 00:56 Dose: 25 mg Levothyroxine Sodium (Levothyroxine Sodium 75 Mcg Tablet) 75 mcg PO DAILY@0630 [facility] Last Admin: 01/28/22 06:34 Dose: 75 mcg Magnesium Hydroxide (Milk Of Magnesia 30 Ml Oral.Susp) 30 ml PO DAILY PRN PRN Reason: Constipation Multivitamins/Vitamin C (Multivitamin Tablet) 1 tab PO DAILY [facility] Last Admin: 01/28/22 10:15 Dose: 1 tab Ondansetron HCl (Ondansetron Hcl 4 Mg/2 Ml Vial) 4 mg IVPUSH ONCE PRN PRN Reason: Nausea and Vomiting Pharmacy Consult (Consult Rx Perform Med Rec) 1 each MISCELLANE ONCE PRN PRN Reason: Consult order Sertraline HCl (Sertraline Hcl 50 Mg Tablet) 150 mg PO BEDTIME [facility] Last Admin: 01/27/22 22:35 Dose: 150 mg Trazodone HCl (Trazodone Hcl 50 Mg Tablet) 50 mg PO BEDTIME PRN PRN Reason: Insomnia Last Admin: 01/20/22 00:56 Dose: 50 mg Allergies Allergies Allergy/AdvReac Type Severity Reaction Status Date / Time No Known Allergies Allergy Verified 12/04/21 10:54 Assessment & Plan Assessment & Plan (1) Orthostatic hypotension: Status: Acute Code(s): I95.1 - Orthostatic hypotension Plan 76 yo M who is admitted to geriatric psych had an unwitnessed fall while getitng up to go to the bathroom. Pt sustained a hematoma on the forehead. Plan 1. Continue same regimen.? 2. ECT for Thursday For EKG clearance: ekg seems fine CT head negative, patient does not have any neurological symptoms currently.? Walking with a walker no dizziness. No obvious contraindication to proceed to ECT at this time, advised to be careful on with the ECT electrodes when put over the hematoma area. 2. Orthostatic hypotension: Not on any medications Keenan stockings PT evaluation when possible. Avoid psychotic medications and blood pressure medication that can cause orthostasis. 3. Hypothyroidism: TSH is borderline elevated, free T4 is normal Continue levothyroxine I spent __20____ minutes with the patient and/or on the patient floor today, greater than?50% of which was spent counseling/coordinating care. Reason for contiued inpatient stay Substantial Risk for: inability to function, rapid decompensation and med/psych decompensation
[2022-01-28] MEDS: Milk of Magnesia 30 ML ORAL.SUSP PO (15:36)
[2022-01-28] MEDS: ARIPiprazole 5 MG TABLET PO (15:36)
[2022-01-28 18:00] VITALS: BP 120/60; PULSE 68; RESP 14; TEMP 37.5; O2SAT 94
[2022-01-28] MEDS: Sertraline HCL 50 MG TABLET 150 MG PO (21:33)
[2022-01-28] MEDS: traZODone HCL 50 MG TABLET PO (21:34)
[2022-01-28] MEDS: hydrOXYzine HCL 25 MG TABLET PO (21:34)
[2022-01-28] MEDS: Atorvastatin Calcium 10 MG TABLET PO (21:35)
[2022-01-29] VITALS (11 sets, daily range): BP systolic 118–170; BP diastolic 56–93; PULSE 57–137; RESP 12–18; TEMP 36.3–37.2; O2SAT 94–100
--- NOTE | 2022-01-29 06:24 | MHC.SHP ---
Pre-Procedural Eval Section A Date of Service: 01/29/22 The patient is an INPATIENT: Yes Changes since office visit: Yes Patient answered all questions; No Cold of Flu in the past 2 weeks, No New Medical Problems and No Changes in Medication The History & Physical has been completed within 30 days and I have reviewed it.: Yes Section B Chief Complaint: Change mental status/depression Allergies: Allergies Allergy/AdvReac Type Severity Reaction Status Date / Time No Known Allergies Allergy Verified 12/04/21 10:54 Plan I have reviewed the history and physical and performed a pertinent physical examination on my patient. No changes have occurred unless specified.
--- NOTE | 2022-01-29 06:51 | P.CONAN_ITS ---
[facility] Active Problems Active Problems: All Active Problems (Updated 01/09/22 @ 20:20 by Walt Meneses MD) Orthostatic hypotension (Acute) Fall (Acute) Fatigue (Acute) Weight decreased (Acute) Cognitive impairment (Acute) MDD (major depressive disorder), recurrent episode, moderate (Acute) Past Medical History Medical History Depression Depression HLD (hyperlipidemia) HTN (hypertension) Hypothyroidism Prostate cancer Family History Family History Other Prostate cancer Family history of problems with anesthesia: No Surgical History Surgical History H/O prostatectomy History of hernia surgery History of Problems with Anesthesia: No Social History Social History Household Members: Spouse Housing: House Do you presently have visiting nurse or other home services: No Patient Tobacco Use Status: Former Tobacco user Tobacco use type: Cigarette Cigarette Packs Per Day: 1 Cigarettes Per Day: 20.0 Smoked in Last 30 Days: No e-Cigarette/Vaping Use: Never Used Patient Interested in Nicotine Replacement: No Patient Given Instructions on How to Stop Smoking: No Second Hand Smoke Exposure: No Use of substances other than those prescribed or required for medical reasons: No Currently Displaying Signs/Symptoms of Drug Intoxication Withdrawal: No Any prior treatment program specific to substance use: No Have you been hit, kicked, punched, or otherwise hurt by someone within the past year? If so, by whom?: No Do you feel safe in your current relationship?: Yes Is there a partner from a previous relationship who is making you feel unsafe now?: No Are you made to feel afraid or neglected: No Advance Directives: Yes Advance Directives Information Provided: No (declined) Advance Directives on File: No Do you have thoughts of harming others: None Do you have a plan to hurt others: No Plan Recently lost weight without trying: No Nutrition Risks: Emaciation/Cachexia Poor oral hygiene: No service: Yes ([employer]) Sexual orientation: Straight/Heterosexual Meds Allergies Allergy/AdvReac Type Severity Reaction Status Date / Time No Known Allergies Allergy Verified 12/04/21 10:54 Active Medications: Current Medications Acetaminophen (Acetaminophen 325 Mg Tablet) 650 mg PO Q8H PRN PRN Reason: Pain Acetaminophen (Acetaminophen 325 Mg Tablet) 650 mg PO Q6H PRN PRN Reason: Headache/Pain Mild Scale (1-3) Last Admin: 01/25/22 09:31 Dose: 650 mg Al Hydroxide/Mg Hydroxide (Magnesium Hydrox/Alum Hydrox 30 Ml Oral.Susp) 30 ml PO Q6H PRN PRN Reason: Heartburn/Nausea Aripiprazole (Aripiprazole 5 Mg Tablet) 5 mg PO DAILY@1600 [facility] Last Admin: 01/28/22 15:36 Dose: 5 mg Atorvastatin Calcium (Atorvastatin Calcium 10 Mg Tablet) 10 mg PO BEDTIME [facility] Last Admin: 01/28/22 21:35 Dose: 10 mg Calcium Polycarbophil (Calcium Polycarbophil Tablet) 2 tab PO DAILY [facility] Last Admin: 01/28/22 10:15 Dose: 2 tab Donepezil HCl (Donepezil Hcl 10 Mg Tablet) 10 mg PO DAILY [facility] Last Admin: 01/28/22 10:15 Dose: 10 mg Ferrous Sulfate (Ferrous Sulfate 324 Mg Tablet.Dr) 324 mg PO DAILY [facility] Last Admin: 01/28/22 10:15 Dose: 324 mg Hydroxyzine HCl (Hydroxyzine Hcl 25 Mg Tablet) 25 mg PO BEDTIME PRN PRN Reason: Anxiety Last Admin: 01/28/22 21:34 Dose: 25 mg Lactated Ringer's (Lr) 1,000 mls @ 50 mls/hr IVCONT .Q20H [facility] Lactated Ringer's (Lr) 1,000 mls @ 50 mls/hr IVCONT .Q20H [facility] Levothyroxine Sodium (Levothyroxine Sodium 75 Mcg Tablet) 75 mcg PO DAILY@0630 [facility] Last Admin: 01/28/22 06:34 Dose: 75 mcg Magnesium Hydroxide (Milk Of Magnesia 30 Ml Oral.Susp) 30 ml PO DAILY PRN PRN Reason: Constipation Last Admin: 01/28/22 15:36 Dose: 30 ml Multivitamins/Vitamin C (Multivitamin Tablet) 1 tab PO DAILY [facility] Last Admin: 01/28/22 10:15 Dose: 1 tab Ondansetron HCl (Ondansetron Hcl 4 Mg/2 Ml Vial) 4 mg IVPUSH ONCE PRN PRN Reason: Nausea and Vomiting Pharmacy Consult (Consult Rx Perform Med Rec) 1 each MISCELLANE ONCE PRN PRN Reason: Consult order Sertraline HCl (Sertraline Hcl 50 Mg Tablet) 150 mg PO BEDTIME [facility] Last Admin: 01/28/22 21:33 Dose: 150 mg Trazodone HCl (Trazodone Hcl 50 Mg Tablet) 50 mg PO BEDTIME PRN PRN Reason: Insomnia Last Admin: 01/28/22 21:34 Dose: 50 mg Home Medications Medication Instructions Recorded Confirmed Last Taken Type acetaminophen 650 mg 650 mg PO Q8H PRN Pain 04/04/21 12/31/21 12/29/21 History tablet,extended release sertraline 100 mg tablet 100 mg PO BEDTIME 12/04/21 12/31/21 12/29/21 History aripiprazole 10 mg tablet 1 tab PO DAILY 12/31/21 12/31/21 12/29/21 History donepezil 10 mg tablet 1 tab PO DAILY 12/31/21 12/31/21 12/29/21 History ferrous sulfate 325 mg (65 mg 325 mg PO DAILY 12/31/21 12/31/21 12/29/21 History iron) tablet mirtazapine 15 mg tablet 1 tab PO BEDTIME 12/31/21 12/31/21 12/29/21 History Exam Exam Date and Time: January 29, 2022 0651 Height,Weight and Vital Signs: Height 6 ft Weight 58.4 kg Last Vital Signs Temp 98.2 F 01/29/22 05:45 Pulse 60 01/29/22 05:45 Resp 16 01/29/22 05:45 BP 124/59 L 01/29/22 05:45 Pulse Ox 95 01/29/22 05:45 O2 Del Method 01/29/22 05:43 O2 Flow Rate 2 01/27/22 08:53 Pertinent Lab Results Pertinent Lab Results: Laboratory Tests 12/30/21 12/30/21 12/30/21 22:53 22:53 23:59 WBC 4.5 L RBC 4.01 L Hgb 12.8 L Hct 38.9 L MCV 97.0 MCH 31.9 MCHC 32.9 RDW 13.2 Plt Count 146 L MPV 9.5 Immature Gran % (Auto) 0.2 Neut % (Auto) 75.1 H Lymph % (Auto) 17.1 L [place] % (Auto) 6.7 Eos % (Auto) 0.7 Baso % (Auto) 0.2 Lymph # (Auto) 0.8 L [place] # (Auto) 0.3 Eos # (Auto) 0.0 Baso # (Auto) 0.0 Abs Immat Gran (auto) 0.01 Absolute Neuts (auto) 3.4 Absolute Nucleated RBC 0.000 Nucleated RBC % (auto) 0.0 Sodium 142 Potassium 4.2 Chloride 99 Carbon Dioxide 34 H Anion Gap 13 BUN 26 H Creatinine 0.94 Estim Creat Clear Calc 54.7 Estimated GFR > 60 Random Glucose 158 H D Fasting Glucose Calcium 9.4 Iron TIBC % Saturation Unsat Iron Binding Total Bilirubin 0.5 AST 30 D ALT 37 Alkaline Phosphatase 61 Total Protein 6.8 Albumin 4.1 Triglycerides Cholesterol LDL Cholesterol, Calc HDL Cholesterol Vitamin B12 Folate TSH Free T4 Urine Color YELLOW Urine Appearance CLEAR Urine pH 6.0 Ur Specific [place] 1.020 Urine Protein NEG Urine Glucose (UA) NEG Urine Ketones 5 Urine Blood NEG Urine Nitrite NEG Ur Leukocyte Esterase NEG COVID-19 (BEV) COVID-[employer] 01/01/22 01/01/22 01/01/22 12:17 12:17 14:18 WBC RBC Hgb Hct MCV MCH MCHC RDW Plt Count MPV Immature Gran % (Auto) Neut % (Auto) Lymph % (Auto) [place] % (Auto) Eos % (Auto) Baso % (Auto) Lymph # (Auto) [place] # (Auto) Eos # (Auto) Baso # (Auto) Abs Immat Gran (auto) Absolute Neuts (auto) Absolute Nucleated RBC Nucleated RBC % (auto) Sodium Potassium Chloride Carbon Dioxide Anion Gap BUN Creatinine Estim Creat Clear Calc Estimated GFR Random Glucose Fasting Glucose Calcium Iron TIBC % Saturation Unsat Iron Binding Total Bilirubin AST ALT Alkaline Phosphatase Total Protein Albumin Triglycerides Cholesterol LDL Cholesterol, Calc HDL Cholesterol Vitamin B12 1416 H Folate > 20.0 TSH 4.20 H Free T4 1.07 Urine Color Urine Appearance Urine pH Ur Specific [place] Urine Protein Urine Glucose (UA) Urine Ketones Urine Blood Urine Nitrite Ur Leukocyte Esterase COVID-19 (BEV) Negative COVID-19 [employer] Com See Note 01/02/22 01/05/22 01/09/22 08:00 18:14 19:54 WBC 5.7 RBC 3.78 L Hgb 11.9 L Hct 36.6 L MCV 96.8 MCH 31.5 MCHC 32.5 RDW 13.4 Plt Count 189 D MPV 9.3 L Immature Gran % (Auto) 0.4 Neut % (Auto) 77.4 H Lymph % (Auto) 12.5 L [place] % (Auto) 7.5 Eos % (Auto) 1.8 Baso % (Auto) 0.4 Lymph # (Auto) 0.7 L [place] # (Auto) 0.4 Eos # (Auto) 0.1 Baso # (Auto) 0.0 Abs Immat Gran (auto) 0.02 Absolute Neuts (auto) 4.4 Absolute Nucleated RBC 0.000 Nucleated RBC % (auto) 0.0 Sodium 140 Potassium 3.9 Chloride 102 Carbon Dioxide 32 H Anion Gap 10 L BUN 24 H Creatinine 0.81 Estim Creat Clear Calc 63.5 Estimated GFR > 60 Random Glucose Fasting Glucose 82 Calcium 9.1 Iron 28 L TIBC 229 % Saturation 12 L Unsat Iron Binding 201 Total Bilirubin 0.3 AST 29 ALT 33 Alkaline Phosphatase 54 Total Protein 6.1 L Albumin 3.7 Triglycerides 85 Cholesterol 151 LDL Cholesterol, Calc 88 HDL Cholesterol 46 Vitamin B12 Folate TSH Free T4 Urine Color Urine Appearance Urine pH Ur Specific [place] Urine Protein Urine Glucose (UA) Urine Ketones Urine Blood Urine Nitrite Ur Leukocyte Esterase COVID-19 (BEV) COVID-19 Clin Com 01/09/22 01/28/22 19:54 09:30 WBC RBC Hgb Hct MCV MCH MCHC RDW Plt Count MPV Immature Gran % (Auto) Neut % (Auto) Lymph % (Auto) [place] % (Auto) Eos % (Auto) Baso % (Auto) Lymph # (Auto) [place] # (Auto) Eos # (Auto) Baso # (Auto) Abs Immat Gran (auto) Absolute Neuts (auto) Absolute Nucleated RBC Nucleated RBC % (auto) Sodium 142 Potassium 4.2 Chloride 102 Carbon Dioxide 31 H Anion Gap 13 BUN 32 H Creatinine 0.77 Estim Creat Clear Calc 66.8 Estimated GFR > 60 Random Glucose 105 Fasting Glucose Calcium 8.9 Iron TIBC % Saturation Unsat Iron Binding Total Bilirubin AST ALT Alkaline Phosphatase Total Protein Albumin Triglycerides Cholesterol LDL Cholesterol, Calc HDL Cholesterol Vitamin B12 Folate TSH Free T4 Urine Color Urine Appearance Urine pH Ur Specific [place] Urine Protein Urine Glucose (UA) Urine Ketones Urine Blood Urine Nitrite Ur Leukocyte Esterase COVID-19 (BEV) Negative COVID-19 Clin Com See Note Airway Mallampati Class: II (Implants front lower 3) TM Dist: >3cm Neck ROM: Full Heart: rrr Lungs: cta Assessment and Plan Assessment Anesthesia Assessment: Anesthesia Plan Discussed and Chart Reviewed Final Anesthetic Review Family History of Problems with Anesthesia: No History of Problems with Anesthesia: No NPO: Yes ASA Class: III Final Preanesthetic Review: No Changes in Pt Med Stat, Meds/Allgs Chart Reviewed and Consent Obtained/Reviewed Patient Risk: Intermediate Procedure Risk: Intermediate Anesthetic Plan Anesthetic Plan: GA Disposition: Standard PACU
--- NOTE | 2022-01-29 07:47 | HO.ECTPROC ---
ECT Procedure Note Diagnosis/Treatment Date of Service: 01/29/22 Diagnosis: Major Depressive Disorder Previous ECT Date: 01/27/22 Current Treatment Number: 4 Treatment: Series Interval Clinical Notes: The patient remains dysphoric but sbettter ECT Settings Device: THYMATRON DGx Electrode Placement: Right Unilateral Program/Pulse Width: 0.25 Energy Percent: 70 Seizure Duration By EEG (in seconds): 67 Medications Administration General Anesthetic: Etomidate Muscle Relaxant: Succinylcholine (80) Ancillary Medications Analgesics: Torodol - Pre ECT Anti-emetics: Zofran - Pre ECT Cardiovascular Medications: Glycopyrrolate Miscillaneous Medications: Propofol and Midazolam Airway Management Airway Management: Bag Mask Ventilation Treatment Recommendations Electrode Placement: Right Unilateral Program/Pulse Width: 0.25 Energy Percent: 70 Notes: Patient is showing clear improvement continue treatment per Dr. gutierrez Pt Tolerated Procedure w/o Issue: Yes
[2022-01-29] MEDS: Donepezil HCl 10 MG TABLET PO (10:14)
[2022-01-29] MEDS: Ferrous Sulfate 324 MG TABLET.DR PO (10:14)
[2022-01-29] MEDS: calcium polycarbophiL TABLET 2 TAB PO (10:14)
[2022-01-29] MEDS: Levothyroxine Sodium 75 MCG TABLET PO (10:14)
[2022-01-29] MEDS: Multivitamin TABLET 1 TAB PO (10:15)
--- NOTE | 2022-01-29 11:10 | MHC.CLN ---
F/U DIET=REGULAR. ENSURE BID PROVIDES ADDITIONAL 700 KCALS, 40 GRAMS PROTEIN. STAFF REPORTS THAT PATIENT IS EATING WELL. RECEIVING ECT SO TRAY HELD FOR AM TREATMENTS. RD TO FOLLOW WEEKLY.
--- NOTE | 2022-01-29 15:02 | P.PNPSI_ITS ---
Subjective Subjective Date of Service: 01/29/22 Reason For Visit: Change mental status/depression Subjective Notes: Conditional Voluntary Interim History: The nursing staff reported the patient has been fully compliant with treatment, he has eaten 100% of his meals. On interview the patient reports that he is doing fine he looks with slightly brighter affect but still most of the time on his bed. He showed a wider range of affect But still constricted. Mental Status Exam Mental Status Exam Patient Appearance: Well Grooomed Patient Orientation: Person and Situation Level of Consciousness: Awake Patient Behavior: Cooperative Mood Description: Withdrawn Affect Description: Constricted Patient Cognition Impaired: Yes Ability to Follow Directions: Good Speech Pattern: Clear Hallucinations: None Delusions: Not Present Thought Process: Distracted Thought Content: positive for [place] and positive for Poverty of Content Judgement: Fair Diagnostics Vital Signs (24Hr): Vital Signs - 24 hr 01/28/22 18:00 01/28/22 23:00 01/29/22 05:43 Temperature 99.5 F 98.2 F Pulse Rate 68 60 Respiratory Rate 14 16 Blood Pressure 120/60 124/59 L Pulse Oximetry 94 95 Oxygen Delivery Method Room Air Room Air Room Air Oxygen Flow Rate 01/29/22 05:45 01/29/22 06:51 01/29/22 08:05 Temperature 98.2 F 99 F 99 F Pulse Rate 60 57 59 Respiratory Rate 16 16 12 Blood Pressure 124/59 L 144/60 H 141/69 H Pulse Oximetry 95 95 100 Oxygen Delivery Method Room Air Nasal Cannula Oxygen Flow Rate 2 01/29/22 08:10 01/29/22 08:15 01/29/22 08:22 Temperature Pulse Rate 58 79 137 H Respiratory Rate 12 18 18 Blood Pressure 118/56 L 130/72 170/85 H Pulse Oximetry 97 97 94 Oxygen Delivery Method Nasal Cannula Nasal Cannula Room Air Oxygen Flow Rate 2 2 01/29/22 08:37 01/29/22 08:52 01/29/22 09:09 Temperature 99 F Pulse Rate 109 H 87 86 Respiratory Rate 18 14 16 Blood Pressure 150/93 H 119/68 135/75 Pulse Oximetry 94 96 98 Oxygen Delivery Method Room Air Room Air Room Air Oxygen Flow Rate 01/29/22 09:30 Temperature 97.3 F Pulse Rate 76 Respiratory Rate 14 Blood Pressure 160/72 H Pulse Oximetry 94 Oxygen Delivery Method Oxygen Flow Rate BMI result Body Mass Index 17.4 Labs Results: 01/09/22 19:54 01/09/22 19:54 Labs: Laboratory Results - last 48 hr 01/28/22 09:30 COVID-19 (BEV) Negative COVID-19 Clin Com See Note Imaging Radiology Impressions: ITS Impressions Head CT 01/09/22 19:11 IMPRESSION: Moderate to large left scalp hematoma without calvarial fracture. No acute intracranial process seen. No left rib fracture abnormality seen. The lungs are clear Ribs X-Ray 01/09/22 19:17 IMPRESSION: Moderate to large left scalp hematoma without calvarial fracture. No acute intracranial process seen. No left rib fracture abnormality seen. The lungs are clear Medications Medications Current Medications Acetaminophen (Acetaminophen 325 Mg Tablet) 650 mg PO Q8H PRN PRN Reason: Pain Acetaminophen (Acetaminophen 325 Mg Tablet) 650 mg PO Q6H PRN PRN Reason: Headache/Pain Mild Scale (1-3) Last Admin: 01/25/22 09:31 Dose: 650 mg Al Hydroxide/Mg Hydroxide (Magnesium Hydrox/Alum Hydrox 30 Ml Oral.Susp) 30 ml PO Q6H PRN PRN Reason: Heartburn/Nausea Aripiprazole (Aripiprazole 5 Mg Tablet) 5 mg PO DAILY@1600 [facility] Last Admin: 01/28/22 15:36 Dose: 5 mg Atorvastatin Calcium (Atorvastatin Calcium 10 Mg Tablet) 10 mg PO BEDTIME [facility] Last Admin: 01/28/22 21:35 Dose: 10 mg Calcium Polycarbophil (Calcium Polycarbophil Tablet) 2 tab PO DAILY [facility] Last Admin: 01/29/22 10:14 Dose: 2 tab Donepezil HCl (Donepezil Hcl 10 Mg Tablet) 10 mg PO DAILY [facility] Last Admin: 01/29/22 10:14 Dose: 10 mg Ferrous Sulfate (Ferrous Sulfate 324 Mg Tablet.Dr) 324 mg PO DAILY [facility] Last Admin: 01/29/22 10:14 Dose: 324 mg Hydroxyzine HCl (Hydroxyzine Hcl 25 Mg Tablet) 25 mg PO BEDTIME PRN PRN Reason: Anxiety Last Admin: 01/28/22 21:34 Dose: 25 mg Levothyroxine Sodium (Levothyroxine Sodium 75 Mcg Tablet) 75 mcg PO DAILY@0630 [facility] Last Admin: 01/29/22 10:14 Dose: 75 mcg Magnesium Hydroxide (Milk Of Magnesia 30 Ml Oral.Susp) 30 ml PO DAILY PRN PRN Reason: Constipation Last Admin: 01/28/22 15:36 Dose: 30 ml Multivitamins/Vitamin C (Multivitamin Tablet) 1 tab PO DAILY [facility] Last Admin: 01/29/22 10:15 Dose: 1 tab Ondansetron HCl (Ondansetron Hcl 4 Mg/2 Ml Vial) 4 mg IVPUSH ONCE PRN PRN Reason: Nausea and Vomiting Pharmacy Consult (Consult Rx Perform Med Rec) 1 each MISCELLANE ONCE PRN PRN Reason: Consult order Sertraline HCl (Sertraline Hcl 50 Mg Tablet) 150 mg PO BEDTIME [facility] Last Admin: 01/28/22 21:33 Dose: 150 mg Trazodone HCl (Trazodone Hcl 50 Mg Tablet) 50 mg PO BEDTIME PRN PRN Reason: Insomnia Last Admin: 01/28/22 21:34 Dose: 50 mg Allergies Allergies Allergy/AdvReac Type Severity Reaction Status Date / Time No Known Allergies Allergy Verified 12/04/21 10:54 Assessment & Plan Assessment & Plan (1) Orthostatic hypotension: Status: Acute Code(s): I95.1 - Orthostatic hypotension Plan 76 yo M who is admitted to geriatric psych had an unwitnessed fall while getitng up to go to the bathroom. Pt sustained a hematoma on the forehead. Plan 1. Continue same regimen.? 2. ECT for Thursday For EKG clearance: ekg seems fine CT head negative, patient does not have any neurological symptoms currently.? Walking with a walker no dizziness. No obvious contraindication to proceed to ECT at this time, advised to be careful on with the ECT electrodes when put over the hematoma area. 2. Orthostatic hypotension: Not on any medications Keenan stockings PT evaluation when possible. Avoid psychotic medications and blood pressure medication that can cause orthostasis. 3. Hypothyroidism: TSH is borderline elevated, free T4 is normal Continue levothyroxine I spent ___20___ minutes with the patient and/or on the patient floor today, greater than?50% of which was spent counseling/coordinating care. Reason for contiued inpatient stay Substantial Risk for: inability to function, rapid decompensation and med/psych decompensation
[2022-01-29] MEDS: ARIPiprazole 5 MG TABLET PO (16:20)
[2022-01-29] MEDS: Sertraline HCL 50 MG TABLET 150 MG PO (20:50)
[2022-01-29] MEDS: Atorvastatin Calcium 10 MG TABLET PO (20:52)
[2022-01-29] MEDS: Bacitracin Oint 14 GM TUBE 1 APPL TOPICAL (20:58)
[2022-01-30] MEDS: Levothyroxine Sodium 75 MCG TABLET PO (05:10)
[2022-01-30 06:00] VITALS: BP 120/65; PULSE 54; RESP 16; TEMP 37.1; O2SAT 96
[2022-01-30 10:28] LABS: COVID-19 Test Negative (Negative)
--- NOTE | 2022-01-30 11:26 | P.PNPSI_ITS ---
Subjective Subjective Date of Service: 01/30/22 Reason For Visit: Change mental status/depression Subjective Notes: Conditional Voluntary Interim History: The nursing staff reports the patient has being brighter and he has a little more active so we need to change his observation to one-to-one for safety. He lays most of the time on his bed but now he has a little more energetic. On interview the patient denies new symptoms he has a brighter affect. COVID test negative today. Mental Status Exam Mental Status Exam Patient Appearance: Appropriate Patient Orientation: Person and Situation Level of Consciousness: Appropriate Mood Description: Withdrawn Affect Description: Constricted Patient Cognition Impaired: Yes Ability to Follow Directions: Good Speech Pattern: Clear Hallucinations: None Delusions: Not Present Thought Process: Slowed Thinking Thought Content: positive for [place] and positive for Poverty of Content Judgement: Fair Diagnostics Vital Signs (24Hr): Vital Signs - 24 hr 01/30/22 06:00 Temperature 98.7 F Pulse Rate 54 Respiratory Rate 16 Blood Pressure 120/65 Pulse Oximetry 96 Oxygen Delivery Method Room Air BMI result Body Mass Index 17.4 Labs Results: 01/09/22 19:54 01/09/22 19:54 Labs: Laboratory Results - last 48 hr 01/30/22 09:50 COVID-19 (BEV) Negative COVID-19 Clin Com See Note Imaging Radiology Impressions: ITS Impressions Head CT 01/09/22 19:11 IMPRESSION: Moderate to large left scalp hematoma without calvarial fracture. No acute intracranial process seen. No left rib fracture abnormality seen. The lungs are clear Ribs X-Ray 01/09/22 19:17 IMPRESSION: Moderate to large left scalp hematoma without calvarial fracture. No acute intracranial process seen. No left rib fracture abnormality seen. The lungs are clear Medications Medications Current Medications Acetaminophen (Acetaminophen 325 Mg Tablet) 650 mg PO Q8H PRN PRN Reason: Pain Acetaminophen (Acetaminophen 325 Mg Tablet) 650 mg PO Q6H PRN PRN Reason: Headache/Pain Mild Scale (1-3) Last Admin: 01/25/22 09:31 Dose: 650 mg Al Hydroxide/Mg Hydroxide (Magnesium Hydrox/Alum Hydrox 30 Ml Oral.Susp) 30 ml PO Q6H PRN PRN Reason: Heartburn/Nausea Aripiprazole (Aripiprazole 5 Mg Tablet) 5 mg PO DAILY@1600 [facility] Last Admin: 01/29/22 16:20 Dose: 5 mg Atorvastatin Calcium (Atorvastatin Calcium 10 Mg Tablet) 10 mg PO BEDTIME [facility] Last Admin: 01/29/22 20:52 Dose: 10 mg Bacitracin (Bacitracin Oint 14 Gm Tube) 1 appl TOPICAL BID [facility]; Protocol Last Admin: 01/29/22 20:58 Dose: 1 appl Calcium Polycarbophil (Calcium Polycarbophil Tablet) 2 tab PO DAILY [facility] Last Admin: 01/29/22 10:14 Dose: 2 tab Donepezil HCl (Donepezil Hcl 10 Mg Tablet) 10 mg PO DAILY [facility] Last Admin: 01/29/22 10:14 Dose: 10 mg Ferrous Sulfate (Ferrous Sulfate 324 Mg Tablet.) 324 mg PO DAILY [facility] Last Admin: 01/29/22 10:14 Dose: 324 mg Hydroxyzine HCl (Hydroxyzine Hcl 25 Mg Tablet) 25 mg PO BEDTIME PRN PRN Reason: Anxiety Last Admin: 01/28/22 21:34 Dose: 25 mg Levothyroxine Sodium (Levothyroxine Sodium 75 Mcg Tablet) 75 mcg PO DAILY@0630 [facility] Last Admin: 01/30/22 05:10 Dose: 75 mcg Magnesium Hydroxide (Milk Of Magnesia 30 Ml Oral.Susp) 30 ml PO DAILY PRN PRN Reason: Constipation Last Admin: 01/28/22 15:36 Dose: 30 ml Multivitamins/Vitamin C (Multivitamin Tablet) 1 tab PO DAILY [facility] Last Admin: 01/29/22 10:15 Dose: 1 tab Ondansetron HCl (Ondansetron Hcl 4 Mg/2 Ml Vial) 4 mg IVPUSH ONCE PRN PRN Reason: Nausea and Vomiting Pharmacy Consult (Consult Rx Perform Med Rec) 1 each MISCELLANE ONCE PRN PRN Reason: Consult order Sertraline HCl (Sertraline Hcl 50 Mg Tablet) 150 mg PO BEDTIME [facility] Last Admin: 01/29/22 20:50 Dose: 150 mg Trazodone HCl (Trazodone Hcl 50 Mg Tablet) 50 mg PO BEDTIME PRN PRN Reason: Insomnia Last Admin: 01/28/22 21:34 Dose: 50 mg Allergies Allergies Allergy/AdvReac Type Severity Reaction Status Date / Time No Known Allergies Allergy Verified 12/04/21 10:54 Assessment & Plan Assessment & Plan (1) Orthostatic hypotension: Status: Acute Code(s): I95.1 - Orthostatic hypotension Plan 76 yo M who is admitted to geriatric psych had an unwitnessed fall while getitng up to go to the bathroom. Pt sustained a hematoma on the forehead. Plan 1. Continue same regimen.? 2. ECT for Thursday For EKG clearance: ekg seems fine CT head negative, patient does not have any neurological symptoms currently.? Walking with a walker no dizziness. No obvious contraindication to proceed to ECT at this time, advised to be careful on with the ECT electrodes when put over the hematoma area. 2. Orthostatic hypotension: Not on any medications Keenan stockings PT evaluation when possible. Avoid psychotic medications and blood pressure medication that can cause orthostasis. 3. Hypothyroidism: TSH is borderline elevated, free T4 is normal Continue levothyroxine I spent ___20___ minutes with the patient and/or on the patient floor today, greater than?50% of which was spent counseling/coordinating care. Reason for contiued inpatient stay Substantial Risk for: inability to function, rapid decompensation and med/psych decompensation
[2022-01-30] MEDS: ARIPiprazole 5 MG TABLET PO (16:53)
[2022-01-30 20:15] VITALS: BP 118/53; PULSE 51; RESP 16; TEMP 37.3; O2SAT 95
[2022-01-30] MEDS: Sertraline HCL 50 MG TABLET 150 MG PO (20:17)
[2022-01-30] MEDS: Bacitracin Oint 14 GM TUBE 1 APPL TOPICAL (20:18)
[2022-01-30] MEDS: Atorvastatin Calcium 10 MG TABLET PO (20:18)
[2022-01-31] VITALS (10 sets, daily range): BP systolic 134–167; BP diastolic 63–119; PULSE 50–141; RESP 6–16; TEMP 36.6–37.3; O2SAT 95–100; BMI 17.6
[2022-01-31] MEDS: Levothyroxine Sodium 75 MCG TABLET PO (05:56)
--- NOTE | 2022-01-31 08:56 | HO.ANESPROP2 ---
[facility] Active Problems Active Problems: All Active Problems (Updated 01/09/22 @ 20:20 by Walt Meneses MD) Orthostatic hypotension (Acute) Fall (Acute) Fatigue (Acute) Weight decreased (Acute) Cognitive impairment (Acute) MDD (major depressive disorder), recurrent episode, moderate (Acute) Past Medical History Medical History Depression Depression HLD (hyperlipidemia) HTN (hypertension) Hypothyroidism Prostate cancer Family History Family History Other Prostate cancer Family history of problems with anesthesia: No Surgical History Surgical History H/O prostatectomy History of hernia surgery History of Problems with Anesthesia: No Social History Social History Household Members: Spouse Housing: House Do you presently have visiting nurse or other home services: No Patient Tobacco Use Status: Former Tobacco user Tobacco use type: Cigarette Cigarette Packs Per Day: 1 Cigarettes Per Day: 20.0 Smoked in Last 30 Days: No e-Cigarette/Vaping Use: Never Used Patient Interested in Nicotine Replacement: No Patient Given Instructions on How to Stop Smoking: No Second Hand Smoke Exposure: No Use of substances other than those prescribed or required for medical reasons: No Currently Displaying Signs/Symptoms of Drug Intoxication Withdrawal: No Any prior treatment program specific to substance use: No Have you been hit, kicked, punched, or otherwise hurt by someone within the past year? If so, by whom?: No Do you feel safe in your current relationship?: Yes Is there a partner from a previous relationship who is making you feel unsafe now?: No Are you made to feel afraid or neglected: No Are you DNR?: No Advance Directives: Yes Advance Directives Information Provided: No (declined) Advance Directives on File: Yes Advance Directives Date on File: 01/29/22 Do you have thoughts of harming others: None Do you have a plan to hurt others: No Plan Recently lost weight without trying: No Nutrition Risks: Emaciation/Cachexia Poor oral hygiene: No service: Yes ([employer]) Sexual orientation: Straight/Heterosexual Meds Allergies Allergy/AdvReac Type Severity Reaction Status Date / Time No Known Allergies Allergy Verified 12/04/21 10:54 Active Medications: Current Medications Acetaminophen (Acetaminophen 325 Mg Tablet) 650 mg PO Q8H PRN PRN Reason: Pain Acetaminophen (Acetaminophen 325 Mg Tablet) 650 mg PO Q6H PRN PRN Reason: Headache/Pain Mild Scale (1-3) Last Admin: 01/25/22 09:31 Dose: 650 mg Al Hydroxide/Mg Hydroxide (Magnesium Hydrox/Alum Hydrox 30 Ml Oral.Susp) 30 ml PO Q6H PRN PRN Reason: Heartburn/Nausea Aripiprazole (Aripiprazole 5 Mg Tablet) 5 mg PO DAILY@1600 [facility] Last Admin: 01/30/22 16:53 Dose: 5 mg Atorvastatin Calcium (Atorvastatin Calcium 10 Mg Tablet) 10 mg PO BEDTIME [facility] Last Admin: 01/30/22 20:18 Dose: 10 mg Bacitracin (Bacitracin Oint 14 Gm Tube) 1 appl TOPICAL BID [facility]; Protocol Last Admin: 01/30/22 20:18 Dose: 1 appl Calcium Polycarbophil (Calcium Polycarbophil Tablet) 2 tab PO DAILY [facility] Last Admin: 01/30/22 12:57 Dose: Not Given Donepezil HCl (Donepezil Hcl 10 Mg Tablet) 10 mg PO DAILY [facility] Last Admin: 01/30/22 12:57 Dose: Not Given Ferrous Sulfate (Ferrous Sulfate 324 Mg Tablet.Dr) 324 mg PO DAILY [facility] Last Admin: 01/30/22 12:57 Dose: Not Given Hydroxyzine HCl (Hydroxyzine Hcl 25 Mg Tablet) 25 mg PO BEDTIME PRN PRN Reason: Anxiety Last Admin: 01/28/22 21:34 Dose: 25 mg Lactated Ringer's (Lr) 1,000 mls @ 50 mls/hr IVCONT .Q20H [facility] Levothyroxine Sodium (Levothyroxine Sodium 75 Mcg Tablet) 75 mcg PO DAILY@0630 [facility] Last Admin: 01/31/22 05:56 Dose: 75 mcg Magnesium Hydroxide (Milk Of Magnesia 30 Ml Oral.Susp) 30 ml PO DAILY PRN PRN Reason: Constipation Last Admin: 01/28/22 15:36 Dose: 30 ml Multivitamins/Vitamin C (Multivitamin Tablet) 1 tab PO DAILY [facility] Last Admin: 01/30/22 12:57 Dose: Not Given Ondansetron HCl (Ondansetron Hcl 4 Mg/2 Ml Vial) 4 mg IVPUSH ONCE PRN PRN Reason: Nausea and Vomiting Pharmacy Consult (Consult Rx Perform Med Rec) 1 each MISCELLANE ONCE PRN PRN Reason: Consult order Sertraline HCl (Sertraline Hcl 50 Mg Tablet) 150 mg PO BEDTIME [facility] Last Admin: 01/30/22 20:17 Dose: 150 mg Trazodone HCl (Trazodone Hcl 50 Mg Tablet) 50 mg PO BEDTIME PRN PRN Reason: Insomnia Last Admin: 01/28/22 21:34 Dose: 50 mg Home Medications Medication Instructions Recorded Confirmed Last Taken Type acetaminophen 650 mg 650 mg PO Q8H PRN Pain 04/04/21 12/31/21 12/29/21 History tablet,extended release sertraline 100 mg tablet 100 mg PO BEDTIME 12/04/21 12/31/21 12/29/21 History aripiprazole 10 mg tablet 1 tab PO DAILY 12/31/21 12/31/21 12/29/21 History donepezil 10 mg tablet 1 tab PO DAILY 12/31/21 12/31/21 12/29/21 History ferrous sulfate 325 mg (65 mg 325 mg PO DAILY 12/31/21 12/31/21 12/29/21 History iron) tablet mirtazapine 15 mg tablet 1 tab PO BEDTIME 12/31/21 12/31/21 12/29/21 History Exam Exam Date and Time: January 31, 2022 0857 Height,Weight and Vital Signs: Height 6 ft Weight 58.967 kg Last Vital Signs Temp 98.2 F 01/31/22 08:42 Pulse 50 01/31/22 08:42 Resp 12 01/31/22 08:42 BP 161/66 H 01/31/22 08:42 Pulse Ox 97 01/31/22 08:42 O2 Del Method 01/31/22 08:42 O2 Flow Rate 2 01/29/22 08:15 Pertinent Lab Results Pertinent Lab Results: Laboratory Tests 12/30/21 12/30/21 12/30/21 22:53 22:53 23:59 WBC 4.5 L RBC 4.01 L Hgb 12.8 L Hct 38.9 L MCV 97.0 MCH 31.9 MCHC 32.9 RDW 13.2 Plt Count 146 L MPV 9.5 Immature Gran % (Auto) 0.2 Neut % (Auto) 75.1 H Lymph % (Auto) 17.1 L [place] % (Auto) 6.7 Eos % (Auto) 0.7 Baso % (Auto) 0.2 Lymph # (Auto) 0.8 L [place] # (Auto) 0.3 Eos # (Auto) 0.0 Baso # (Auto) 0.0 Abs Immat Gran (auto) 0.01 Absolute Neuts (auto) 3.4 Absolute Nucleated RBC 0.000 Nucleated RBC % (auto) 0.0 Sodium 142 Potassium 4.2 Chloride 99 Carbon Dioxide 34 H Anion Gap 13 BUN 26 H Creatinine 0.94 Estim Creat Clear Calc 54.7 Estimated GFR > 60 Random Glucose 158 H D Fasting Glucose Calcium 9.4 Iron TIBC % Saturation Unsat Iron Binding Total Bilirubin 0.5 AST 30 D ALT 37 Alkaline Phosphatase 61 Total Protein 6.8 Albumin 4.1 Triglycerides Cholesterol LDL Cholesterol, Calc HDL Cholesterol Vitamin B12 Folate TSH Free T4 Urine Color YELLOW Urine Appearance CLEAR Urine pH 6.0 Ur Specific [place] 1.020 Urine Protein NEG Urine Glucose (UA) NEG Urine Ketones 5 Urine Blood NEG Urine Nitrite NEG Ur Leukocyte Esterase NEG COVID-19 (BEV) COVID-19 [place] 01/01/22 01/01/22 01/01/22 12:17 12:17 14:18 WBC RBC Hgb Hct MCV MCH MCHC RDW Plt Count MPV Immature Gran % (Auto) Neut % (Auto) Lymph % (Auto) [place] % (Auto) Eos % (Auto) Baso % (Auto) Lymph # (Auto) [place] # (Auto) Eos # (Auto) Baso # (Auto) Abs Immat Gran (auto) Absolute Neuts (auto) Absolute Nucleated RBC Nucleated RBC % (auto) Sodium Potassium Chloride Carbon Dioxide Anion Gap BUN Creatinine Estim Creat Clear Calc Estimated GFR Random Glucose Fasting Glucose Calcium Iron TIBC % Saturation Unsat Iron Binding Total Bilirubin AST ALT Alkaline Phosphatase Total Protein Albumin Triglycerides Cholesterol LDL Cholesterol, Calc HDL Cholesterol Vitamin B12 1416 H Folate > 20.0 TSH 4.20 H Free T4 1.07 Urine Color Urine Appearance Urine pH Ur Specific [place] Urine Protein Urine Glucose (UA) Urine Ketones Urine Blood Urine Nitrite Ur Leukocyte Esterase COVID-19 (BEV) Negative COVID-19 Clin Com See Note 01/02/22 01/05/22 01/09/22 08:00 18:14 19:54 WBC 5.7 RBC 3.78 L Hgb 11.9 L Hct 36.6 L MCV 96.8 MCH 31.5 MCHC 32.5 RDW 13.4 Plt Count 189 D MPV 9.3 L Immature Gran % (Auto) 0.4 Neut % (Auto) 77.4 H Lymph % (Auto) 12.5 L [place] % (Auto) 7.5 Eos % (Auto) 1.8 Baso % (Auto) 0.4 Lymph # (Auto) 0.7 L [place] # (Auto) 0.4 Eos # (Auto) 0.1 Baso # (Auto) 0.0 Abs Immat Gran (auto) 0.02 Absolute Neuts (auto) 4.4 Absolute Nucleated RBC 0.000 Nucleated RBC % (auto) 0.0 Sodium 140 Potassium 3.9 Chloride 102 Carbon Dioxide 32 H Anion Gap 10 L BUN 24 H Creatinine 0.81 Estim Creat Clear Calc 63.5 Estimated GFR > 60 Random Glucose Fasting Glucose 82 Calcium 9.1 Iron 28 L TIBC 229 % Saturation 12 L Unsat Iron Binding 201 Total Bilirubin 0.3 AST 29 ALT 33 Alkaline Phosphatase 54 Total Protein 6.1 L Albumin 3.7 Triglycerides 85 Cholesterol 151 LDL Cholesterol, Calc 88 HDL Cholesterol 46 Vitamin B12 Folate TSH Free T4 Urine Color Urine Appearance Urine pH Ur Specific [place] Urine Protein Urine Glucose (UA) Urine Ketones Urine Blood Urine Nitrite Ur Leukocyte Esterase COVID-19 (BEV) COVID-19 Clin Com 01/09/22 01/28/22 01/30/22 19:54 09:30 09:50 WBC RBC Hgb Hct MCV MCH MCHC RDW Plt Count MPV Immature Gran % (Auto) Neut % (Auto) Lymph % (Auto) [place] % (Auto) Eos % (Auto) Baso % (Auto) Lymph # (Auto) [place] # (Auto) Eos # (Auto) Baso # (Auto) Abs Immat Gran (auto) Absolute Neuts (auto) Absolute Nucleated RBC Nucleated RBC % (auto) Sodium 142 Potassium 4.2 Chloride 102 Carbon Dioxide 31 H Anion Gap 13 BUN 32 H Creatinine 0.77 Estim Creat Clear Calc 66.8 Estimated GFR > 60 Random Glucose 105 Fasting Glucose Calcium 8.9 Iron TIBC % Saturation Unsat Iron Binding Total Bilirubin AST ALT Alkaline Phosphatase Total Protein Albumin Triglycerides Cholesterol LDL Cholesterol, Calc HDL Cholesterol Vitamin B12 Folate TSH Free T4 Urine Color Urine Appearance Urine pH Ur Specific [place] Urine Protein Urine Glucose (UA) Urine Ketones Urine Blood Urine Nitrite Ur Leukocyte Esterase COVID-19 (BEV) Negative Negative COVID-19 Clin Com See Note See Note Airway Mallampati Class: II (Bridge lower requesting it be left in aware of risk) TM Dist: >3cm Neck ROM: Full Heart: rrr Lungs: cta Assessment and Plan Assessment Anesthesia Assessment: Anesthesia Plan Discussed and Chart Reviewed Final Anesthetic Review Family History of Problems with Anesthesia: No History of Problems with Anesthesia: No NPO: Yes ASA Class: III Final Preanesthetic Review: No Changes in Pt Med Stat, Meds/Allgs Chart Reviewed and Consent Obtained/Reviewed Patient Risk: Intermediate Procedure Risk: Intermediate Anesthetic Plan Anesthetic Plan: GA Disposition: Standard PACU
--- NOTE | 2022-01-31 09:52 | MHC.SHP ---
Pre-Procedural Eval Section A Date of Service: 01/31/22 The patient is an INPATIENT: Yes Changes since office visit: Yes Patient answered all questions; No Cold of Flu in the past 2 weeks, No New Medical Problems and No Changes in Medication The History & Physical has been completed within 30 days and I have reviewed it.: Yes Section B Chief Complaint: Change mental status/depression Allergies: Allergies Allergy/AdvReac Type Severity Reaction Status Date / Time No Known Allergies Allergy Verified 12/04/21 10:54 Plan I have reviewed the history and physical and performed a pertinent physical examination on my patient. No changes have occurred unless specified.
--- NOTE | 2022-01-31 10:52 | P.PNPSI_ITS ---
Subjective Subjective Date of Service: 01/31/22 Reason For Visit: Change mental status/depression Subjective Notes: Conditional Voluntary Interim History: The nursing staff reported the patient has being mostly on his bed on one-to-one observation for safety. On interview the patient was sedated after ECT but staff before the ECT has noticed that he has a brighter affect with a wider range of affect. Mental Status Exam Mental Status Exam Patient Appearance: Well Grooomed Patient Orientation: Person and Situation Level of Consciousness: Awake Mood Description: Constricted Affect Description: Constricted Patient Cognition Impaired: Yes Ability to Follow Directions: Good Speech Pattern: Clear Hallucinations: None Delusions: Not Present Thought Process: Distracted Thought Content: positive for [place] Judgement: Fair Diagnostics Vital Signs (24Hr): Vital Signs - 24 hr 01/30/22 20:15 01/31/22 06:00 01/31/22 06:32 Temperature 99.2 F 98.5 F 98.5 F Pulse Rate 51 54 54 Respiratory Rate 16 16 16 Blood Pressure 118/53 L 134/63 134/63 Pulse Oximetry 95 95 95 Oxygen Delivery Method Room Air Room Air Oxygen Flow Rate 01/31/22 08:42 01/31/22 10:14 01/31/22 10:19 Temperature 98.2 F 97.8 F Pulse Rate 50 82 138 H Respiratory Rate 12 16 12 Blood Pressure 161/66 H 165/119 H 153/108 H Pulse Oximetry 97 98 95 Oxygen Delivery Method Room Air Nasal Cannula Room Air Oxygen Flow Rate 2 01/31/22 10:24 01/31/22 10:29 01/31/22 10:34 Temperature Pulse Rate 141 H 134 H 98 Respiratory Rate 16 16 16 Blood Pressure 150/102 H 161/78 H 153/81 H Pulse Oximetry 100 99 99 Oxygen Delivery Method Room Air Room Air Room Air Oxygen Flow Rate BMI result Body Mass Index 17.6 Labs Results: 01/09/22 19:54 01/09/22 19:54 Labs: Laboratory Results - last 48 hr 01/30/22 09:50 COVID-19 (BEV) Negative COVID-19 Clin Com See Note Imaging Radiology Impressions: ITS Impressions Head CT 01/09/22 19:11 IMPRESSION: Moderate to large left scalp hematoma without calvarial fracture. No acute intracranial process seen. No left rib fracture abnormality seen. The lungs are clear Ribs X-Ray 01/09/22 19:17 IMPRESSION: Moderate to large left scalp hematoma without calvarial fracture. No acute intracranial process seen. No left rib fracture abnormality seen. The lungs are clear Medications Medications Current Medications Acetaminophen (Acetaminophen 325 Mg Tablet) 650 mg PO Q8H PRN PRN Reason: Pain Acetaminophen (Acetaminophen 325 Mg Tablet) 650 mg PO Q6H PRN PRN Reason: Headache/Pain Mild Scale (1-3) Last Admin: 01/25/22 09:31 Dose: 650 mg Al Hydroxide/Mg Hydroxide (Magnesium Hydrox/Alum Hydrox 30 Ml Oral.Susp) 30 ml PO Q6H PRN PRN Reason: Heartburn/Nausea Aripiprazole (Aripiprazole 5 Mg Tablet) 5 mg PO DAILY@1600 [facility] Last Admin: 01/30/22 16:53 Dose: 5 mg Atorvastatin Calcium (Atorvastatin Calcium 10 Mg Tablet) 10 mg PO BEDTIME [facility] Last Admin: 01/30/22 20:18 Dose: 10 mg Bacitracin (Bacitracin Oint 14 Gm Tube) 1 appl TOPICAL BID [facility]; Protocol Last Admin: 01/30/22 20:18 Dose: 1 appl Calcium Polycarbophil (Calcium Polycarbophil Tablet) 2 tab PO DAILY [facility] Last Admin: 01/30/22 12:57 Dose: Not Given Donepezil HCl (Donepezil Hcl 10 Mg Tablet) 10 mg PO DAILY [facility] Last Admin: 01/30/22 12:57 Dose: Not Given Ferrous Sulfate (Ferrous Sulfate 324 Mg Tablet.Dr) 324 mg PO DAILY [facility] Last Admin: 01/30/22 12:57 Dose: Not Given Hydroxyzine HCl (Hydroxyzine Hcl 25 Mg Tablet) 25 mg PO BEDTIME PRN PRN Reason: Anxiety Last Admin: 01/28/22 21:34 Dose: 25 mg Lactated Ringer's (Lr) 1,000 mls @ 50 mls/hr IVCONT .Q20H [facility] Levothyroxine Sodium (Levothyroxine Sodium 75 Mcg Tablet) 75 mcg PO DAILY@0630 [facility] Last Admin: 01/31/22 05:56 Dose: 75 mcg Magnesium Hydroxide (Milk Of Magnesia 30 Ml Oral.Susp) 30 ml PO DAILY PRN PRN Reason: Constipation Last Admin: 01/28/22 15:36 Dose: 30 ml Multivitamins/Vitamin C (Multivitamin Tablet) 1 tab PO DAILY [facility] Last Admin: 01/30/22 12:57 Dose: Not Given Ondansetron HCl (Ondansetron Hcl 4 Mg/2 Ml Vial) 4 mg IVPUSH ONCE PRN PRN Reason: Nausea and Vomiting Pharmacy Consult (Consult Rx Perform Med Rec) 1 each MISCELLANE ONCE PRN PRN Reason: Consult order Sertraline HCl (Sertraline Hcl 50 Mg Tablet) 150 mg PO BEDTIME [facility] Last Admin: 01/30/22 20:17 Dose: 150 mg Trazodone HCl (Trazodone Hcl 50 Mg Tablet) 50 mg PO BEDTIME PRN PRN Reason: Insomnia Last Admin: 01/28/22 21:34 Dose: 50 mg Allergies Allergies Allergy/AdvReac Type Severity Reaction Status Date / Time No Known Allergies Allergy Verified 12/04/21 10:54 Assessment & Plan Assessment & Plan (1) Orthostatic hypotension: Status: Acute Code(s): I95.1 - Orthostatic hypotension Plan 76 yo M who is admitted to geriatric psych had an unwitnessed fall while getitng up to go to the bathroom. Pt sustained a hematoma on the forehead. Plan 1. Continue same regimen.? 2. ECT for Thursday For EKG clearance: ekg seems fine CT head negative, patient does not have any neurological symptoms currently.? Walking with a walker no dizziness. No obvious contraindication to proceed to ECT at this time, advised to be c areful on with the ECT electrodes when put over the hematoma area. 2. Orthostatic hypotension: Not on any medications Keenan stockings PT evaluation when possible. Avoid psychotic medications and blood pressure medication that can cause orthostasis. 3. Hypothyroidism: TSH is borderline elevated, free T4 is normal Continue levothyroxine I spent __20____ minutes with the patient and/or on the patient floor today, greater than?50% of which was spent counseling/coordinating care. Reason for contiued inpatient stay Substantial Risk for: inability to function, rapid decompensation and med/psych decompensation
--- NOTE | 2022-01-31 18:28 | HO.ECTPROC ---
ECT Procedure Note Diagnosis/Treatment Date of Service: 01/31/22 Diagnosis: Major Depressive Disorder Previous ECT Date: 01/29/22 Current Treatment Number: 5 Treatment: Series Interval Clinical Notes: Patient shows full range of affect no significant cognitive side effects or delirium noted Patient is stating he feels better ECT Settings Device: THYMATRON DGx Electrode Placement: Right Unilateral Program/Pulse Width: 0.50 Seizure Duration By EEG (in seconds): 50 Medications Administration General Anesthetic: Etomidate (10) Muscle Relaxant: Succinylcholine (80) Ancillary Medications Anti-emetics: Zofran - Pre ECT (4) Miscillaneous Medications: Midazolam (2 post) Airway Management Airway Management: Bag Mask Ventilation Treatment Recommendations No Changes Recommended: No change Electrode Placement: Right Unilateral Notes: Patient showing clear improvement consider change to 2 times a week instead of 3 times a week if significant cognitive changes Pt Tolerated Procedure w/o Issue: Yes
[2022-01-31] MEDS: Atorvastatin Calcium 10 MG TABLET PO (20:19)
[2022-01-31] MEDS: Sertraline HCL 50 MG TABLET 150 MG PO (20:19)
[2022-01-31] MEDS: Bacitracin Oint 14 GM TUBE 1 APPL TOPICAL (20:29)
[2022-02-01] MEDS: Levothyroxine Sodium 75 MCG TABLET PO (06:04)
[2022-02-01 07:00] VITALS: BP 159/69; PULSE 64; RESP 14; TEMP 36.9; O2SAT 94
[2022-02-01] MEDS: calcium polycarbophiL TABLET 2 TAB PO (08:42)
[2022-02-01] MEDS: Multivitamin TABLET 1 TAB PO (08:43)
[2022-02-01] MEDS: Donepezil HCl 10 MG TABLET PO (08:43)
[2022-02-01] MEDS: Ferrous Sulfate 324 MG TABLET.DR PO (08:43)
--- NOTE | 2022-02-01 09:40 | P.PNPSI_ITS ---
Subjective Subjective Date of Service: 02/01/22 Reason For Visit: Change mental status/depression Subjective Notes: Conditional Voluntary Healthcare Proxy: No Guardianship: No Medical Problems Affecting Mental Status: No Interim History: REports doing better since ECt, eating as much as he can, reports having lost 100lb with his depression- slept ok, no complaints of s/e took anti constipation med x1 and it worked nursing reports brighter affect more engaged Medication Compliance: Yes Side effects from medications: Yes (mild constipation) Attending Groups: Intermittent Review of Systems Acute medical concerns: No Medical Review of Systems: unchanged Mental Status Exam Mental Status Exam Patient Appearance: Unkempt Patient Orientation: Person and Place Level of Consciousness: Awake Patient Behavior: Appropriate and Dependent Mood Description: Constricted Patient Cognition Impaired: Yes Ability to Follow Directions: Fair Speech Pattern: Mumbled Thought Content: positive for [place] and positive for Poverty of Content Abnormal Motor Activity Signs and Symptoms: Psychomotor Retardation Judgement: Fair Diagnostics Vital Signs (24Hr): Vital Signs - 24 hr 01/31/22 10:14 01/31/22 10:19 01/31/22 10:24 Temperature 97.8 F Pulse Rate 82 138 H 141 H Respiratory Rate 16 12 16 Blood Pressure 165/119 H 153/108 H 150/102 H Pulse Oximetry 98 95 100 Oxygen Delivery Method Nasal Cannula Room Air Room Air Oxygen Flow Rate 2 01/31/22 10:29 01/31/22 10:34 01/31/22 10:49 Temperature Pulse Rate 134 H 98 104 H Respiratory Rate 16 16 16 Blood Pressure 161/78 H 153/81 H 167/99 H Pulse Oximetry 99 99 100 Oxygen Delivery Method Room Air Room Air Room Air Oxygen Flow Rate 01/31/22 18:00 Temperature 99.2 F Pulse Rate 59 Respiratory Rate 6 L Blood Pressure 140/65 H Pulse Oximetry 95 Oxygen Delivery Method Room Air Oxygen Flow Rate BMI result Body Mass Index 17.6 Labs Results: 01/09/22 19:54 01/09/22 19:54 Labs: Laboratory Results - last 48 hr 01/30/22 09:50 COVID-19 (BEV) Negative COVID-19 Clin Com See Note Imaging Radiology Impressions: ITS Impressions Head CT 01/09/22 19:11 IMPRESSION: Moderate to large left scalp hematoma without calvarial fracture. No acute intracranial process seen. No left rib fracture abnormality seen. The lungs are clear Ribs X-Ray 01/09/22 19:17 IMPRESSION: Moderate to large left scalp hematoma without calvarial fracture. No acute intracranial process seen. No left rib fracture abnormality seen. The lungs are clear Medications Medications Current Medications Acetaminophen (Acetaminophen 325 Mg Tablet) 650 mg PO Q8H PRN PRN Reason: Pain Acetaminophen (Acetaminophen 325 Mg Tablet) 650 mg PO Q6H PRN PRN Reason: Headache/Pain Mild Scale (1-3) Last Admin: 01/25/22 09:31 Dose: 650 mg Al Hydroxide/Mg Hydroxide (Magnesium Hydrox/Alum Hydrox 30 Ml Oral.Susp) 30 ml PO Q6H PRN PRN Reason: Heartburn/Nausea Aripiprazole (Aripiprazole 5 Mg Tablet) 5 mg PO DAILY@1600 [facility] Last Admin: 01/31/22 17:46 Dose: Not Given Atorvastatin Calcium (Atorvastatin Calcium 10 Mg Tablet) 10 mg PO BEDTIME [facility] Last Admin: 01/31/22 20:19 Dose: 10 mg Bacitracin (Bacitracin Oint 14 Gm Tube) 1 appl TOPICAL BID [facility]; Protocol Last Admin: 01/31/22 20:29 Dose: 1 appl Calcium Polycarbophil (Calcium Polycarbophil Tablet) 2 tab PO DAILY [facility] Last Admin: 02/01/22 08:42 Dose: 2 tab Donepezil HCl (Donepezil Hcl 10 Mg Tablet) 10 mg PO DAILY [facility] Last Admin: 02/01/22 08:43 Dose: 10 mg Ferrous Sulfate (Ferrous Sulfate 324 Mg Tablet.Dr) 324 mg PO DAILY [facility] Last Admin: 02/01/22 08:43 Dose: 324 mg Hydroxyzine HCl (Hydroxyzine Hcl 25 Mg Tablet) 25 mg PO BEDTIME PRN PRN Reason: Anxiety Last Admin: 01/28/22 21:34 Dose: 25 mg Levothyroxine Sodium (Levothyroxine Sodium 75 Mcg Tablet) 75 mcg PO DAILY@0630 [facility] Last Admin: 02/01/22 06:04 Dose: 75 mcg Magnesium Hydroxide (Milk Of Magnesia 30 Ml Oral.Susp) 30 ml PO DAILY PRN PRN Reason: Constipation Last Admin: 01/28/22 15:36 Dose: 30 ml Multivitamins/Vitamin C (Multivitamin Tablet) 1 tab PO DAILY [facility] Last Admin: 02/01/22 08:43 Dose: 1 tab Ondansetron HCl (Ondansetron Hcl 4 Mg/2 Ml Vial) 4 mg IVPUSH ONCE PRN PRN Reason: Nausea and Vomiting Pharmacy Consult (Consult Rx Perform Med Rec) 1 each MISCELLANE ONCE PRN PRN Reason: Consult order Sertraline HCl (Sertraline Hcl 50 Mg Tablet) 150 mg PO BEDTIME [facility] Last Admin: 01/31/22 20:19 Dose: 150 mg Trazodone HCl (Trazodone Hcl 50 Mg Tablet) 50 mg PO BEDTIME PRN PRN Reason: Insomnia Last Admin: 01/28/22 21:34 Dose: 50 mg Allergies Allergies Allergy/AdvReac Type Severity Reaction Status Date / Time No Known Allergies Allergy Verified 12/04/21 10:54 Assessment & Plan Assessment & Plan (1) Orthostatic hypotension: Status: Acute Code(s): I95.1 - Orthostatic hypotension Assessment and Plan: bp quite high 01/31 ? POST ECT (2) MDD (major depressive disorder), recurrent episode, moderate: Status: Acute Code(s): F33.1 - Major depressive disorder, recurrent, moderate Assessment and Plan: getting ECT (3) Cognitive impairment: Status: Acute Code(s): R41.89 - Other symptoms and signs involving cognitive functions and awareness Plan 76 yo M who is admitted to geriatric psych getting ECT for depression, improving Plan 1. Continue same regimen.? 2. ECT for Thursday 2. Orthostatic hypotension: Not on any medications Keenan stockings PT evaluation when possible. Avoid psychotic medications and blood pressure medication that can cause orthostasis. 3. Hypothyroidism: TSH is borderline elevated, free T4 is normal Continue levothyroxine I spent minutes with the patient and/or on the patient floor today, greater than?50% of which was spent counseling/coordinating care. Patient educated on: ECT and therapeutic strategies Informed Consent: understands Reason for contiued inpatient stay Substantial Risk for: inability to function and rapid decompensation
[2022-02-01] MEDS: ARIPiprazole 5 MG TABLET PO (15:49)
[2022-02-01] MEDS: Bacitracin Oint 14 GM TUBE 1 APPL TOPICAL ×2 (15:52→20:55)
[2022-02-01] MEDS: Sertraline HCL 50 MG TABLET 150 MG PO (19:50)
[2022-02-01] MEDS: traZODone HCL 50 MG TABLET PO (19:50)
[2022-02-01] MEDS: Atorvastatin Calcium 10 MG TABLET PO (19:51)
[2022-02-01 21:23] VITALS: BP 119/56; PULSE 58; RESP 14; TEMP 36.4; O2SAT 96
[2022-02-02] MEDS: hydrOXYzine HCL 25 MG TABLET PO (03:10)
[2022-02-02] MEDS: Levothyroxine Sodium 75 MCG TABLET PO (05:41)
[2022-02-02 06:00] VITALS: BP 117/55; PULSE 106; RESP 16; TEMP 36.6; O2SAT 95
[2022-02-02] MEDS: Ferrous Sulfate 324 MG TABLET.DR PO (08:39)
[2022-02-02] MEDS: calcium polycarbophiL TABLET 2 TAB PO (08:39)
[2022-02-02] MEDS: Donepezil HCl 10 MG TABLET PO (08:39)
[2022-02-02] MEDS: Multivitamin TABLET 1 TAB PO (08:39)
--- NOTE | 2022-02-02 10:33 | HO.PSYCHPN ---
Subjective Subjective Date of Service: 02/02/22 Reason For Visit: Change mental status/depression Subjective Notes: Conditional Voluntary Healthcare Proxy: Yes Guardianship: No Medical Problems Affecting Mental Status: Yes (dementia) Interim History: last pm- talking to people not there -- disoriented this am - up with walker going to exit had to get out of here needs to go home sat down took meds At lunch today calm pleasant, trouble remembering words or what he was going to say , much like yesterday- on 1:1 Medication Compliance: Yes Side effects from medications: No Attending Groups: Intermittent Review of Systems Acute medical concerns: No though as clearing from depression dementia more prominent pt though mentioned was quite confused after first ECT Medical Review of Systems: unchanged Mental Status Exam Mental Status Exam Patient Appearance: Well Grooomed and Appropriate Patient Orientation: Person and Place Level of Consciousness: Awake Patient Behavior: Appropriate, Wandering, Distractible, Impulsive and Sundowning Mood Description: Calm Affect Description: Labile Patient Cognition Impaired: Yes Ability to Follow Directions: Fair (redirectable) Speech Pattern: Garbled (at times) and Poor Articulation Memory Description: Episodic Impaired Thought Process: Distracted, Slowed Thinking and Confusion Thought Content: positive for [place] and positive for Poverty of Content Abnormal Motor Activity Signs and Symptoms: Restlessness Judgement: Poor Diagnostics Vital Signs (24Hr): Vital Signs - 24 hr 02/01/22 21:23 02/02/22 06:00 Temperature 97.5 F 97.8 F Pulse Rate 58 106 H Respiratory Rate 14 16 Blood Pressure 119/56 L 117/55 L Pulse Oximetry 96 95 Oxygen Delivery Method Room Air BMI result Body Mass Index 17.6 Labs Results: 01/09/22 19:54 01/09/22 19:54 Imaging Radiology Impressions: ITS Impressions Head CT 01/09/22 19:11 IMPRESSION: Moderate to large left scalp hematoma without calvarial fracture. No acute intracranial process seen. No left rib fracture abnormality seen. The lungs are clear Ribs X-Ray 01/09/22 19:17 IMPRESSION: Moderate to large left scalp hematoma without calvarial fracture. No acute intracranial process seen. No left rib fracture abnormality seen. The lungs are clear Medications Medications Current Medications Acetaminophen (Acetaminophen 325 Mg Tablet) 650 mg PO Q8H PRN PRN Reason: Pain Acetaminophen (Acetaminophen 325 Mg Tablet) 650 mg PO Q6H PRN PRN Reason: Headache/Pain Mild Scale (1-3) Last Admin: 01/25/22 09:31 Dose: 650 mg Al Hydroxide/Mg Hydroxide (Magnesium Hydrox/Alum Hydrox 30 Ml Oral.Susp) 30 ml PO Q6H PRN PRN Reason: Heartburn/Nausea Aripiprazole (Aripiprazole 5 Mg Tablet) 5 mg PO DAILY@1600 [facility] Last Admin: 02/01/22 15:49 Dose: 5 mg Atorvastatin Calcium (Atorvastatin Calcium 10 Mg Tablet) 10 mg PO BEDTIME [facility] Last Admin: 02/01/22 19:51 Dose: 10 mg Bacitracin (Bacitracin Oint 14 Gm Tube) 1 appl TOPICAL BID [facility]; Protocol Last Admin: 02/01/22 20:55 Dose: 1 appl Calcium Polycarbophil (Calcium Polycarbophil Tablet) 2 tab PO DAILY [facility] Last Admin: 02/02/22 08:39 Dose: 2 tab Donepezil HCl (Donepezil Hcl 10 Mg Tablet) 10 mg PO DAILY [facility] Last Admin: 02/02/22 08:39 Dose: 10 mg Ferrous Sulfate (Ferrous Sulfate 324 Mg Tablet.Dr) 324 mg PO DAILY [facility] Last Admin: 02/02/22 08:39 Dose: 324 mg Hydroxyzine HCl (Hydroxyzine Hcl 25 Mg Tablet) 25 mg PO BEDTIME PRN PRN Reason: Anxiety Last Admin: 02/02/22 03:10 Dose: 25 mg Levothyroxine Sodium (Levothyroxine Sodium 75 Mcg Tablet) 75 mcg PO DAILY@0630 [facility] Last Admin: 02/02/22 05:41 Dose: 75 mcg Magnesium Hydroxide (Milk Of Magnesia 30 Ml Oral.Susp) 30 ml PO DAILY PRN PRN Reason: Constipation Last Admin: 01/28/22 15:36 Dose: 30 ml Multivitamins/Vitamin C (Multivitamin Tablet) 1 tab PO DAILY [facility] Last Admin: 02/02/22 08:39 Dose: 1 tab Ondansetron HCl (Ondansetron Hcl 4 Mg/2 Ml Vial) 4 mg IVPUSH ONCE PRN PRN Reason: Nausea and Vomiting Pharmacy Consult (Consult Rx Perform Med Rec) 1 each MISCELLANE ONCE PRN PRN Reason: Consult order Sertraline HCl (Sertraline Hcl 50 Mg Tablet) 150 mg PO BEDTIME [facility] Last Admin: 02/01/22 19:50 Dose: 150 mg Trazodone HCl (Trazodone Hcl 50 Mg Tablet) 50 mg PO BEDTIME PRN PRN Reason: Insomnia Last Admin: 02/01/22 19:50 Dose: 50 mg Allergies Allergies Allergy/AdvReac Type Severity Reaction Status Date / Time No Known Allergies Allergy Verified 12/04/21 10:54 Assessment & Plan Assessment & Plan (1) Orthostatic hypotension: Status: Acute Code(s): I95.1 - Orthostatic hypotension Assessment and Plan: bp quite high 01/31 ? POST ECT (2) MDD (major depressive disorder), recurrent episode, moderate: Status: Acute Code(s): F33.1 - Major depressive disorder, recurrent, moderate Assessment and Plan: getting ECT- ? if further needed, given confusion and eating - (3) Cognitive impairment: Status: Acute Code(s): R41.89 - Other symptoms and signs involving cognitive functions and awareness Assessment and Plan: more dementia like behavior as depression clears- recheck labs none since 01/09 Plan 76 yo M who is admitted to geriatric psych getting ECT for depression, improving Plan 1. Continue same regimen.? 2. ECT for Thursday 2. Orthostatic hypotension: Not on any medications Keenan stockings PT evaluation when possible. Avoid psychotic medications and blood pressure medication that can cause orthostasis. 3. Hypothyroidism: TSH is borderline elevated, free T4 is normal Continue levothyroxine I spent minutes with the patient and/or on the patient floor today, greater than?50% of which was spent counseling/coordinating care. Patient educated on: ECT Informed Consent: further education needed Reason for contiued inpatient stay Substantial Risk for: inability to function, rapid decompensation and med/psych decompensation
[2022-02-02] MEDS: ARIPiprazole 5 MG TABLET PO (16:37)
[2022-02-02 18:00] VITALS: BP 124/58; PULSE 60; RESP 14; TEMP 36.6; O2SAT 97
[2022-02-02] MEDS: Sertraline HCL 50 MG TABLET 150 MG PO (20:28)
[2022-02-02] MEDS: Bacitracin Oint 14 GM TUBE 1 APPL TOPICAL (20:28)
[2022-02-02] MEDS: Atorvastatin Calcium 10 MG TABLET PO (20:28)
[2022-02-03] VITALS (16 sets, daily range): BP systolic 105–147; BP diastolic 50–76; PULSE 16–95; RESP 12–16; TEMP 36.5–37.5; O2SAT 92–100
[2022-02-03] MEDS: Levothyroxine Sodium 75 MCG TABLET PO (05:28)
--- NOTE | 2022-02-03 07:08 | MHC.SHP ---
Pre-Procedural Eval Section A Date of Service: 02/03/22 The patient is an INPATIENT: Yes Changes since office visit: No Cold of Flu in the past 2 weeks, No New Medical Problems, No Changes in Medication and No Patient answered all questions The History & Physical has been completed within 30 days and I have reviewed it.: Yes Section B Chief Complaint: Change mental status/depression Allergies: Allergies Allergy/AdvReac Type Severity Reaction Status Date / Time No Known Allergies Allergy Verified 12/04/21 10:54 Plan I have reviewed the history and physical and performed a pertinent physical examination on my patient. No changes have occurred unless specified.
--- NOTE | 2022-02-03 08:00 | HO.ECTPROC ---
ECT Procedure Note Diagnosis/Treatment Date of Service: 02/03/22 Diagnosis: Major Depressive Disorder Previous ECT Date: 01/31/22 Treatment: Series Interval Clinical Notes: The patient looked with a broader range of affect, denies side effects with previous ECT, seems less dysphoric. ECT Settings Device: THYMATRON DGx Electrode Placement: Right Unilateral Program/Pulse Width: 0.25 Energy Percent: 70 Seizure Duration By EEG (in seconds): 81 By Motor Observation (in seconds): 45 Medications Administration General Anesthetic: Etomidate (10) Muscle Relaxant: Succinylcholine (80) Ancillary Medications Analgesics: Torodol - Pre ECT Anti-emetics: Zofran - Pre ECT Cardiovascular Medications: Glycopyrrolate Miscillaneous Medications: Propofol and Midazolam Airway Management Airway Management: Bag Mask Ventilation Treatment Recommendations Electrode Placement: Right Unilateral Program/Pulse Width: 0.25 Energy Percent: 60 Pt Tolerated Procedure w/o Issue: Yes
--- NOTE | 2022-02-03 08:15 | HO.ANESPROP2 ---
[facility] Active Problems Active Problems: All Active Problems (Updated 01/09/22 @ 20:20 by Walt Meneses MD) Orthostatic hypotension (Acute) Fall (Acute) Fatigue (Acute) Weight decreased (Acute) Cognitive impairment (Acute) MDD (major depressive disorder), recurrent episode, moderate (Acute) Past Medical History Medical History Depression Depression HLD (hyperlipidemia) HTN (hypertension) Hypothyroidism Prostate cancer Family History Family History Other Prostate cancer Family history of problems with anesthesia: No Surgical History Surgical History H/O prostatectomy History of hernia surgery History of Problems with Anesthesia: No Social History Social History Household Members: Spouse Housing: House Do you presently have visiting nurse or other home services: No Patient Tobacco Use Status: Former Tobacco user Tobacco use type: Cigarette Cigarette Packs Per Day: 1 Cigarettes Per Day: 20.0 Smoked in Last 30 Days: No e-Cigarette/Vaping Use: Never Used Patient Interested in Nicotine Replacement: No Patient Given Instructions on How to Stop Smoking: No Second Hand Smoke Exposure: No Use of substances other than those prescribed or required for medical reasons: No Currently Displaying Signs/Symptoms of Drug Intoxication Withdrawal: No Any prior treatment program specific to substance use: No Have you been hit, kicked, punched, or otherwise hurt by someone within the past year? If so, by whom?: No Do you feel safe in your current relationship?: Yes Is there a partner from a previous relationship who is making you feel unsafe now?: No Are you made to feel afraid or neglected: No Are you DNR?: No Advance Directives: Yes Advance Directives Information Provided: No (declined) Advance Directives on File: Yes Advance Directives Date on File: 01/29/22 Do you have thoughts of harming others: None Do you have a plan to hurt others: No Plan Recently lost weight without trying: No Nutrition Risks: Emaciation/Cachexia Poor oral hygiene: No service: Yes (Air 5 Minutes) Sexual orientation: Straight/Heterosexual Meds Allergies Allergy/AdvReac Type Severity Reaction Status Date / Time No Known Allergies Allergy Verified 12/04/21 10:54 Active Medications: Current Medications Acetaminophen (Acetaminophen 325 Mg Tablet) 650 mg PO Q8H PRN PRN Reason: Pain Acetaminophen (Acetaminophen 325 Mg Tablet) 650 mg PO Q6H PRN PRN Reason: Headache/Pain Mild Scale (1-3) Last Admin: 01/25/22 09:31 Dose: 650 mg Al Hydroxide/Mg Hydroxide (Magnesium Hydrox/Alum Hydrox 30 Ml Oral.Susp) 30 ml PO Q6H PRN PRN Reason: Heartburn/Nausea Aripiprazole (Aripiprazole 5 Mg Tablet) 5 mg PO DAILY@1600 [facility] Last Admin: 02/02/22 16:37 Dose: 5 mg Atorvastatin Calcium (Atorvastatin Calcium 10 Mg Tablet) 10 mg PO BEDTIME [facility] Last Admin: 02/02/22 20:28 Dose: 10 mg Bacitracin (Bacitracin Oint 14 Gm Tube) 1 appl TOPICAL BID [facility]; Protocol Last Admin: 02/02/22 20:28 Dose: 1 appl Calcium Polycarbophil (Calcium Polycarbophil Tablet) 2 tab PO DAILY [facility] Last Admin: 02/02/22 08:39 Dose: 2 tab Donepezil HCl (Donepezil Hcl 10 Mg Tablet) 10 mg PO DAILY [facility] Last Admin: 02/02/22 08:39 Dose: 10 mg Ferrous Sulfate (Ferrous Sulfate 324 Mg Tablet.Dr) 324 mg PO DAILY [facility] Last Admin: 02/02/22 08:39 Dose: 324 mg Hydroxyzine HCl (Hydroxyzine Hcl 25 Mg Tablet) 25 mg PO BEDTIME PRN PRN Reason: Anxiety Last Admin: 02/02/22 03:10 Dose: 25 mg Levothyroxine Sodium (Levothyroxine Sodium 75 Mcg Tablet) 75 mcg PO DAILY@0630 [facility] Last Admin: 02/03/22 05:28 Dose: 75 mcg Magnesium Hydroxide (Milk Of Magnesia 30 Ml Oral.Susp) 30 ml PO DAILY PRN PRN Reason: Constipation Last Admin: 01/28/22 15:36 Dose: 30 ml Multivitamins/Vitamin C (Multivitamin Tablet) 1 tab PO DAILY [facility] Last Admin: 02/02/22 08:39 Dose: 1 tab Ondansetron HCl (Ondansetron Hcl 4 Mg/2 Ml Vial) 4 mg IVPUSH ONCE PRN PRN Reason: Nausea and Vomiting Pharmacy Consult (Consult Rx Perform Med Rec) 1 each MISCELLANE ONCE PRN PRN Reason: Consult order Sertraline HCl (Sertraline Hcl 50 Mg Tablet) 150 mg PO BEDTIME [facility] Last Admin: 02/02/22 20:28 Dose: 150 mg Home Medications Medication Instructions Recorded Confirmed Last Taken Type acetaminophen 650 mg 650 mg PO Q8H PRN Pain 04/04/21 12/31/21 12/29/21 History tablet,extended release sertraline 100 mg tablet 100 mg PO BEDTIME 12/04/21 12/31/21 12/29/21 History aripiprazole 10 mg tablet 1 tab PO DAILY 12/31/21 12/31/21 12/29/21 History donepezil 10 mg tablet 1 tab PO DAILY 12/31/21 12/31/21 12/29/21 History ferrous sulfate 325 mg (65 mg 325 mg PO DAILY 12/31/21 12/31/21 12/29/21 History iron) tablet mirtazapine 15 mg tablet 1 tab PO BEDTIME 12/31/21 12/31/21 12/29/21 History Exam Exam Date and Time: February 03, 2022 0815 Height,Weight and Vital Signs: Height 6 ft Weight 58.967 kg Last Vital Signs Temp 99.5 F 02/03/22 08:10 Pulse 63 02/03/22 08:10 Resp 15 02/03/22 08:10 BP 147/61 H 02/03/22 08:10 Pulse Ox 100 02/03/22 08:10 O2 Del Method 02/03/22 08:10 O2 Flow Rate 4 02/03/22 08:10 Pertinent Lab Results Pertinent Lab Results: Laboratory Tests 12/30/21 12/30/21 12/30/21 22:53 22:53 23:59 WBC 4.5 L RBC 4.01 L Hgb 12.8 L Hct 38.9 L MCV 97.0 MCH 31.9 MCHC 32.9 RDW 13.2 Plt Count 146 L MPV 9.5 Immature Gran % (Auto) 0.2 Neut % (Auto) 75.1 H Lymph % (Auto) 17.1 L Adams % (Auto) 6.7 Eos % (Auto) 0.7 Baso % (Auto) 0.2 Lymph # (Auto) 0.8 L Adams # (Auto) 0.3 Eos # (Auto) 0.0 Baso # (Auto) 0.0 Abs Immat Gran (auto) 0.01 Absolute Neuts (auto) 3.4 Absolute Nucleated RBC 0.000 Nucleated RBC % (auto) 0.0 Sodium 142 Potassium 4.2 Chloride 99 Carbon Dioxide 34 H Anion Gap 13 BUN 26 H Creatinine 0.94 Estim Creat Clear Calc 54.7 Estimated GFR > 60 Random Glucose 158 H D Fasting Glucose Calcium 9.4 Iron TIBC % Saturation Unsat Iron Binding Total Bilirubin 0.5 AST 30 D ALT 37 Alkaline Phosphatase 61 Total Protein 6.8 Albumin 4.1 Triglycerides Cholesterol LDL Cholesterol, Calc HDL Cholesterol Vitamin B12 Folate TSH Free T4 Urine Color YELLOW Urine Appearance CLEAR Urine pH 6.0 Ur Specific [place] 1.020 Urine Protein NEG Urine Glucose (UA) NEG Urine Ketones 5 Urine Blood NEG Urine Nitrite NEG Ur Leukocyte Esterase NEG COVID-19 (BEV) COVID-[employer] 01/01/22 01/01/22 01/01/22 12:17 12:17 14:18 WBC RBC Hgb Hct MCV MCH MCHC RDW Plt Count MPV Immature Gran % (Auto) Neut % (Auto) Lymph % (Auto) Adams % (Auto) Eos % (Auto) Baso % (Auto) Lymph # (Auto) Adams # (Auto) Eos # (Auto) Baso # (Auto) Abs Immat Gran (auto) Absolute Neuts (auto) Absolute Nucleated RBC Nucleated RBC % (auto) Sodium Potassium Chloride Carbon Dioxide Anion Gap BUN Creatinine Estim Creat Clear Calc Estimated GFR Random Glucose Fasting Glucose Calcium Iron TIBC % Saturation Unsat Iron Binding Total Bilirubin AST ALT Alkaline Phosphatase Total Protein Albumin Triglycerides Cholesterol LDL Cholesterol, Calc HDL Cholesterol Vitamin B12 1416 H Folate > 20.0 TSH 4.20 H Free T4 1.07 Urine Color Urine Appearance Urine pH Ur Specific [place] Urine Protein Urine Glucose (UA) Urine Ketones Urine Blood Urine Nitrite Ur Leukocyte Esterase COVID-19 (BEV) Negative COVID-19 Clin Com See Note 01/02/22 01/05/22 01/09/22 08:00 18:14 19:54 WBC 5.7 RBC 3.78 L Hgb 11.9 L Hct 36.6 L MCV 96.8 MCH 31.5 MCHC 32.5 RDW 13.4 Plt Count 189 D MPV 9.3 L Immature Gran % (Auto) 0.4 Neut % (Auto) 77.4 H Lymph % (Auto) 12.5 L Adams % (Auto) 7.5 Eos % (Auto) 1.8 Baso % (Auto) 0.4 Lymph # (Auto) 0.7 L Adams # (Auto) 0.4 Eos # (Auto) 0.1 Baso # (Auto) 0.0 Abs Immat Gran (auto) 0.02 Absolute Neuts (auto) 4.4 Absolute Nucleated RBC 0.000 Nucleated RBC % (auto) 0.0 Sodium 140 Potassium 3.9 Chloride 102 Carbon Dioxide 32 H Anion Gap 10 L BUN 24 H Creatinine 0.81 Estim Creat Clear Calc 63.5 Estimated GFR > 60 Random Glucose Fasting Glucose 82 Calcium 9.1 Iron 28 L TIBC 229 % Saturation 12 L Unsat Iron Binding 201 Total Bilirubin 0.3 AST 29 ALT 33 Alkaline Phosphatase 54 Total Protein 6.1 L Albumin 3.7 Triglycerides 85 Cholesterol 151 LDL Cholesterol, Calc 88 HDL Cholesterol 46 Vitamin B12 Folate TSH Free T4 Urine Color Urine Appearance Urine pH Ur Specific [place] Urine Protein Urine Glucose (UA) Urine Ketones Urine Blood Urine Nitrite Ur Leukocyte Esterase COVID-19 (BEV) COVID-19 [employer] Com 01/09/22 01/28/22 01/30/22 19:54 09:30 09:50 WBC RBC Hgb Hct MCV MCH MCHC RDW Plt Count MPV Immature Gran % (Auto) Neut % (Auto) Lymph % (Auto) Adams % (Auto) Eos % (Auto) Baso % (Auto) Lymph # (Auto) Adams # (Auto) Eos # (Auto) Baso # (Auto) Abs Immat Gran (auto) Absolute Neuts (auto) Absolute Nucleated RBC Nucleated RBC % (auto) Sodium 142 Potassium 4.2 Chloride 102 Carbon Dioxide 31 H Anion Gap 13 BUN 32 H Creatinine 0.77 Estim Creat Clear Calc 66.8 Estimated GFR > 60 Random Glucose 105 Fasting Glucose Calcium 8.9 Iron TIBC % Saturation Unsat Iron Binding Total Bilirubin AST ALT Alkaline Phosphatase Total Protein Albumin Triglycerides Cholesterol LDL Cholesterol, Calc HDL Cholesterol Vitamin B12 Folate TSH Free T4 Urine Color Urine Appearance Urine pH Ur Specific [place] Urine Protein Urine Glucose (UA) Urine Ketones Urine Blood Urine Nitrite Ur Leukocyte Esterase COVID-19 (BEV) Negative Negative COVID-19 Clin Com See Note See Note Airway Mallampati Class: III TM Dist: >3cm Neck ROM: Limited Loose/Missing/Broken Teeth: Yes, Upper and Lower Assessment and Plan Assessment Anesthesia Assessment: Anesthesia Plan Discussed and Chart Reviewed Final Anesthetic Review Family History of Problems with Anesthesia: No History of Problems with Anesthesia: No NPO: Yes ASA Class: III Final Preanesthetic Review: No Changes in Pt Med Stat, Meds/Allgs Chart Reviewed, Consent Obtained/Reviewed and Anes Risks/Benef Reviewed Patient Risk: Intermediate Procedure Risk: Intermediate Anesthetic Plan Anesthetic Plan: GA Disposition: Standard PACU and Inp. Admit - Standard Bed
[2022-02-03 10:57] LABS: MANUAL DIFF FLAG NO
[2022-02-03] MEDS: Multivitamin TABLET 1 TAB PO (10:58)
[2022-02-03] MEDS: Ferrous Sulfate 324 MG TABLET.DR PO (10:58)
[2022-02-03] MEDS: calcium polycarbophiL TABLET 2 TAB PO (10:58)
[2022-02-03] MEDS: Donepezil HCl 10 MG TABLET PO (10:58)
[2022-02-03 11:00] LABS: Basophils Percent Auto 0.2 % (0-2); Eosinophils Absolute Auto 0.1 X10*3/uL (0.0-0.4); Eosinophils Percent Auto 0.4 % (0-4); Hemoglobin 13.9 g/dl (14.0-18.0); Imm Gran Abs Auto 0.05 X10*3/uL (0.00-0.03); Imm Gran Pct Auto 0.4 % (0.0-0.4); Lymphocytes Absolute Auto 1.1 X10*3/uL (1.2-4.9); Lymphocytes Percent Auto 8.9 % (20-40); Mean Corpuscular HGB Conc 33.1 g/dl (31.0-36.0); Mean Corpuscular Volume 96.6 fL (80.0-98.0); Monocytes Absolute Auto 0.5 X10*3/uL (0.1-1.2); Neutrophils Percent Auto 86.1 % (45-73); Platelet Count 201 X10*3/uL (160-400); Red Blood Count 4.35 X10*6/uL (4.60-5.80); Red Cell Distribution Width 13.2 % (11.0-16.0); White Blood Count 12.7 X10*3/uL (4.8-10.8)
[2022-02-03 11:20] LABS: Alanine Aminotransferase 20 U/L (0-40); Albumin Level 4.5 g/dL (3.5-5.0); Alkaline Phosphatase 94 U/L (39-117); Anion Gap 13 (12-20); Aspartate Amino Transferase 22 U/L (5-37); Bilirubin Total 0.6 mg/dL (0.0-1.0); Blood Urea Nitrogen 21 mg/dL (9-16); Calcium 9.1 mg/dL (8.4-10.2); Carbon Dioxide 31 mmol/L (22-29); Chloride 97 mmol/L (96-108); Creatinine Clr Calc Pharmacy 66.3; Estimated Glomerular Filt Rate > 60; Glucose Random 100 mg/dL (60-115); Potassium 4.1 mmol/L (3.3-5.1); Sodium 137 mmol/L (135-145); Total Protein 7.5 g/dL (6.5-8.0)
--- NOTE | 2022-02-03 14:37 | P.PNPSI_ITS ---
Subjective Subjective Date of Service: 02/03/22 Reason For Visit: Change mental status/depression Subjective Notes: Conditional Voluntary Interim History: The nursing staff reported the patient has been confused but easily redirectable. Apparently he was seen by the staff having visual hallucinations trying to cigar packer and picker things from the air. Today we had ECT and his affect was brighter he looks less dysphoric. Mental Status Exam Mental Status Exam Patient Appearance: Well Grooomed Patient Orientation: Person and Situation Level of Consciousness: Awake Patient Behavior: Appropriate Mood Description: Calm Affect Description: Depressed Patient Cognition Impaired: Yes Ability to Follow Directions: Good Speech Pattern: Clear Hallucinations: None Delusions: Not Present Thought Content: positive for [place] Judgement: Fair Diagnostics Vital Signs (24Hr): Vital Signs - 24 hr 02/02/22 18:00 02/03/22 05:42 02/03/22 05:51 Temperature 98 F 98.9 F 98.9 F Pulse Rate 60 70 70 Respiratory Rate 14 14 14 Blood Pressure 124/58 L 145/74 H 145/74 H Pulse Oximetry 97 96 96 Oxygen Delivery Method Room Air Room Air Oxygen Flow Rate 02/03/22 06:31 02/03/22 08:10 02/03/22 08:15 Temperature 98.3 F 99.5 F Pulse Rate 16 L 63 70 Respiratory Rate 16 15 16 Blood Pressure 138/74 147/61 H 124/57 L Pulse Oximetry 97 100 99 Oxygen Delivery Method Room Air Nasal Cannula Nasal Cannula Oxygen Flow Rate 4 4 02/03/22 08:20 02/03/22 08:25 02/03/22 08:40 Temperature Pulse Rate 81 75 70 Respiratory Rate 14 16 14 Blood Pressure 129/76 129/66 112/52 L Pulse Oximetry 98 98 96 Oxygen Delivery Method Nasal Cannula Nasal Cannula Nasal Cannula Oxygen Flow Rate 4 2 2 02/03/22 08:55 02/03/22 09:10 02/03/22 09:25 Temperature Pulse Rate 66 68 67 Respiratory Rate 13 12 12 Blood Pressure 120/50 L 105/56 L 105/52 L Pulse Oximetry 92 95 93 Oxygen Delivery Method Room Air Room Air Room Air Oxygen Flow Rate 02/03/22 09:42 02/03/22 10:00 02/03/22 10:15 Temperature 99.4 F Pulse Rate 75 89 82 Respiratory Rate 16 16 16 Blood Pressure 121/58 L 134/68 142/66 H Pulse Oximetry 96 96 96 Oxygen Delivery Method Room Air Room Air Oxygen Flow Rate 02/03/22 11:00 Temperature 97.7 F Pulse Rate 95 Respiratory Rate 14 Blood Pressure 136/71 Pulse Oximetry 95 Oxygen Delivery Method Oxygen Flow Rate BMI result Body Mass Index 17.6 Labs Results: 02/03/22 10:53 02/03/22 10:53 Labs: Laboratory Results - last 48 hr 02/03/22 02/03/22 10:53 10:53 WBC 12.7 H RBC 4.35 L Hgb 13.9 L Hct 42.0 MCV 96.6 MCH 32.0 MCHC 33.1 RDW 13.2 Plt Count 201 MPV 9.0 L Immature Gran % (Auto) 0.4 Neut % (Auto) 86.1 H Lymph % (Auto) 8.9 L Martin % (Auto) 4.0 Eos % (Auto) 0.4 Baso % (Auto) 0.2 Lymph # (Auto) 1.1 L Martin # (Auto) 0.5 Eos # (Auto) 0.1 Baso # (Auto) 0.0 Abs Immat Gran (auto) 0.05 H Absolute Neuts (auto) 11.0 H Absolute Nucleated RBC 0.000 Nucleated RBC % (auto) 0.0 Sodium 137 Potassium 4.1 Chloride 97 Carbon Dioxide 31 H Anion Gap 13 BUN 21 H Creatinine 0.79 Estim Creat Clear Calc 66.3 Estimated GFR > 60 Random Glucose 100 Calcium 9.1 Total Bilirubin 0.6 AST 22 ALT 20 Alkaline Phosphatase 94 D Total Protein 7.5 D Albumin 4.5 D Imaging Radiology Impressions: ITS Impressions Head CT 01/09/22 19:11 IMPRESSION: Moderate to large left scalp hematoma without calvarial fracture. No acute intracranial process seen. No left rib fracture abnormality seen. The lungs are clear Ribs X-Ray 01/09/22 19:17 IMPRESSION: Moderate to large left scalp hematoma without calvarial fracture. No acute intracranial process seen. No left rib fracture abnormality seen. The lungs are clear Medications Medications Current Medications Acetaminophen (Acetaminophen 325 Mg Tablet) 650 mg PO Q8H PRN PRN Reason: Pain Acetaminophen (Acetaminophen 325 Mg Tablet) 650 mg PO Q6H PRN PRN Reason: Headache/Pain Mild Scale (1-3) Last Admin: 01/25/22 09:31 Dose: 650 mg Acetaminophen (Acetaminophen 325 Mg Tablet) 650 mg PO ONCE PRN PRN Reason: Pain, Mild (Pain Scale 1-3) Al Hydroxide/Mg Hydroxide (Magnesium Hydrox/Alum Hydrox 30 Ml Oral.Susp) 30 ml PO Q6H PRN PRN Reason: Heartburn/Nausea Aripiprazole (Aripiprazole 5 Mg Tablet) 5 mg PO DAILY@[facility] Last Admin: 02/02/22 16:37 Dose: 5 mg Atorvastatin Calcium (Atorvastatin Calcium 10 Mg Tablet) 10 mg PO BEDTIME [facility] Last Admin: 02/02/22 20:28 Dose: 10 mg Bacitracin (Bacitracin Oint 14 Gm Tube) 1 appl TOPICAL BID [facility]; Protocol Last Admin: 02/02/22 20:28 Dose: 1 appl Calcium Polycarbophil (Calcium Polycarbophil Tablet) 2 tab PO DAILY [facility] Last Admin: 02/03/22 10:58 Dose: 2 tab Donepezil HCl (Donepezil Hcl 10 Mg Tablet) 10 mg PO DAILY [facility] Last Admin: 02/03/22 10:58 Dose: 10 mg Ferrous Sulfate (Ferrous Sulfate 324 Mg Tablet.Dr) 324 mg PO DAILY [facility] Last Admin: 02/03/22 10:58 Dose: 324 mg Hydroxyzine HCl (Hydroxyzine Hcl 25 Mg Tablet) 25 mg PO BEDTIME PRN PRN Reason: Anxiety Last Admin: 02/02/22 03:10 Dose: 25 mg Levothyroxine Sodium (Levothyroxine Sodium 75 Mcg Tablet) 75 mcg PO DAILY@0630 [facility] Last Admin: 02/03/22 05:28 Dose: 75 mcg Magnesium Hydroxide (Milk Of Magnesia 30 Ml Oral.Susp) 30 ml PO DAILY PRN PRN Reason: Constipation Last Admin: 01/28/22 15:36 Dose: 30 ml Multivitamins/Vitamin C (Multivitamin Tablet) 1 tab PO DAILY [facility] Last Admin: 02/03/22 10:58 Dose: 1 tab Pharmacy Consult (Consult Rx Perform Med Rec) 1 each MISCELLANE ONCE PRN PRN Reason: Consult order Sertraline HCl (Sertraline Hcl 50 Mg Tablet) 150 mg PO BEDTIME [facility] Last Admin: 02/02/22 20:28 Dose: 150 mg Allergies Allergies Allergy/AdvReac Type Severity Reaction Status Date / Time No Known Allergies Allergy Verified 12/04/21 10:54 Assessment & Plan Assessment & Plan (1) Orthostatic hypotension: Status: Acute Code(s): I95.1 - Orthostatic hypotension Assessment and Plan: bp quite high 01/31 ? POST ECT (2) MDD (major depressive disorder), recurrent episode, moderate: Status: Acute Code(s): F33.1 - Major depressive disorder, recurrent, moderate Assessment and Plan: getting ECT- ? if further needed, given confusion and eating - (3) Cognitive impairment: Status: Acute Code(s): R41.89 - Other symptoms and signs involving cognitive functions and awareness Assessment and Plan: more dementia like behavior as depression clears- recheck labs none since 01/09 Plan 76 yo M who is admitted to geriatric psych getting ECT for depression, improving Plan 1. Continue same regimen.? 2. ECT for Thursday 2. Orthostatic hypotension: Not on any medications Keenan stockings PT evaluation when possible. Avoid psychotic medications and blood pressure medication that can cause orthostasis. 3. Hypothyroidism: TSH is borderline elevated, free T4 is normal Continue levothyroxine I spent ___20___ minutes with the patient and/or on the patient floor today, greater than?50% of which was spent counseling/coordinating care. Reason for contiued inpatient stay Substantial Risk for: inability to function, rapid decompensation and med/psych decompensation
[2022-02-03] MEDS: Bacitracin Oint 14 GM TUBE 1 APPL TOPICAL ×2 (15:34→20:16)
[2022-02-03 16:02] LABS: COVID-19 Test Negative (Negative); IDNOW Serial# 16C4AD1C
[2022-02-03] MEDS: Sertraline HCL 50 MG TABLET 150 MG PO (20:11)
[2022-02-03] MEDS: Atorvastatin Calcium 10 MG TABLET PO (20:11)
[2022-02-03] MEDS: ARIPiprazole 5 MG TABLET PO (20:11)
[2022-02-04 06:00] VITALS: BP 134/61; PULSE 62; RESP 17; TEMP 36.8; O2SAT 96
[2022-02-04] MEDS: Levothyroxine Sodium 75 MCG TABLET PO (06:16)
[2022-02-04] MEDS: calcium polycarbophiL TABLET 2 TAB PO (11:24)
[2022-02-04] MEDS: Ferrous Sulfate 324 MG TABLET.DR PO (11:24)
[2022-02-04] MEDS: Multivitamin TABLET 1 TAB PO (11:24)
[2022-02-04] MEDS: Donepezil HCl 10 MG TABLET PO (11:24)
[2022-02-04] MEDS: Bacitracin Oint 14 GM TUBE 1 APPL TOPICAL ×2 (11:27→21:24)
--- NOTE | 2022-02-04 14:01 | HO.PSYCHPN ---
Subjective Subjective Date of Service: 02/04/22 Reason For Visit: Change mental status/depression Subjective Notes: Conditional Voluntary Interim History: The nursing staff reported that he was fully compliant with treatment, periods of confusion but easily redirectable. On interview, he was cooperative, pleasant with a brighter affect, walking to the pation. Mental Status Exam Mental Status Exam Patient Appearance: Well Grooomed Patient Orientation: Person and Situation Level of Consciousness: Awake Patient Behavior: Appropriate Mood Description: Withdrawn Affect Description: Constricted Patient Cognition Impaired: Yes Ability to Follow Directions: Good Speech Pattern: Clear Hallucinations: None Delusions: Not Present Thought Process: Linear Thought Content: positive for Goal Oriented Judgement: Fair Diagnostics Vital Signs (24Hr): Vital Signs - 24 hr 02/03/22 18:00 02/04/22 06:00 Temperature 98.3 F 98.3 F Pulse Rate 73 62 Respiratory Rate 16 17 Blood Pressure 121/63 134/61 Pulse Oximetry 96 96 Oxygen Delivery Method Room Air Room Air BMI result Body Mass Index 17.6 Labs Results: 02/03/22 10:53 02/03/22 10:53 Labs: Laboratory Results - last 48 hr 02/03/22 02/03/22 02/03/22 10:53 10:53 15:25 WBC 12.7 H RBC 4.35 L Hgb 13.9 L Hct 42.0 MCV 96.6 MCH 32.0 MCHC 33.1 RDW 13.2 Plt Count 201 MPV 9.0 L Immature Gran % (Auto) 0.4 Neut % (Auto) 86.1 H Lymph % (Auto) 8.9 L [place] % (Auto) 4.0 Eos % (Auto) 0.4 Baso % (Auto) 0.2 Lymph # (Auto) 1.1 L [place]ies # (Auto) 0.5 Eos # (Auto) 0.1 Baso # (Auto) 0.0 Abs Immat Gran (auto) 0.05 H Absolute Neuts (auto) 11.0 H Absolute Nucleated RBC 0.000 Nucleated RBC % (auto) 0.0 Sodium 137 Potassium 4.1 Chloride 97 Carbon Dioxide 31 H Anion Gap 13 BUN 21 H Creatinine 0.79 Estim Creat Clear Calc 66.3 Estimated GFR > 60 Random Glucose 100 Calcium 9.1 Total Bilirubin 0.6 AST 22 ALT 20 Alkaline Phosphatase 94 D Total Protein 7.5 D Albumin 4.5 D COVID-19 (BEV) Negative COVID-19 Clin Com See Note Imaging Radiology Impressions: ITS Impressions Head CT 01/09/22 19:11 IMPRESSION: Moderate to large left scalp hematoma without calvarial fracture. No acute intracranial process seen. No left rib fracture abnormality seen. The lungs are clear Ribs X-Ray 01/09/22 19:17 IMPRESSION: Moderate to large left scalp hematoma without calvarial fracture. No acute intracranial process seen. No left rib fracture abnormality seen. The lungs are clear Medications Medications Current Medications Acetaminophen (Acetaminophen 325 Mg Tablet) 650 mg PO Q8H PRN PRN Reason: Pain Acetaminophen (Acetaminophen 325 Mg Tablet) 650 mg PO Q6H PRN PRN Reason: Headache/Pain Mild Scale (1-3) Last Admin: 01/25/22 09:31 Dose: 650 mg Acetaminophen (Acetaminophen 325 Mg Tablet) 650 mg PO ONCE PRN PRN Reason: Pain, Mild (Pain Scale 1-3) Al Hydroxide/Mg Hydroxide (Magnesium Hydrox/Alum Hydrox 30 Ml Oral.Susp) 30 ml PO Q6H PRN PRN Reason: Heartburn/Nausea Aripiprazole (Aripiprazole 5 Mg Tablet) 5 mg PO DAILY@1600 [facility] Last Admin: 02/03/22 20:11 Dose: 5 mg Atorvastatin Calcium (Atorvastatin Calcium 10 Mg Tablet) 10 mg PO BEDTIME [facility] Last Admin: 02/03/22 20:11 Dose: 10 mg Bacitracin (Bacitracin Oint 14 Gm Tube) 1 appl TOPICAL BID [facility]; Protocol Last Admin: 02/04/22 11:27 Dose: 1 appl Calcium Polycarbophil (Calcium Polycarbophil Tablet) 2 tab PO DAILY [facility] Last Admin: 02/04/22 11:24 Dose: 2 tab Donepezil HCl (Donepezil Hcl 10 Mg Tablet) 10 mg PO DAILY [facility] Last Admin: 02/04/22 11:24 Dose: 10 mg Ferrous Sulfate (Ferrous Sulfate 324 Mg Tablet.Dr) 324 mg PO DAILY [facility] Last Admin: 02/04/22 11:24 Dose: 324 mg Hydroxyzine HCl (Hydroxyzine Hcl 25 Mg Tablet) 25 mg PO BEDTIME PRN PRN Reason: Anxiety Last Admin: 02/02/22 03:10 Dose: 25 mg Levothyroxine Sodium (Levothyroxine Sodium 75 Mcg Tablet) 75 mcg PO DAILY@0630 [facility] Last Admin: 02/04/22 06:16 Dose: 75 mcg Magnesium Hydroxide (Milk Of Magnesia 30 Ml Oral.Susp) 30 ml PO DAILY PRN PRN Reason: Constipation Last Admin: 01/28/22 15:36 Dose: 30 ml Multivitamins/Vitamin C (Multivitamin Tablet) 1 tab PO DAILY [facility] Last Admin: 02/04/22 11:24 Dose: 1 tab Pharmacy Consult (Consult Rx Perform Med Rec) 1 each MISCELLANE ONCE PRN PRN Reason: Consult order Sertraline HCl (Sertraline Hcl 50 Mg Tablet) 150 mg PO BEDTIME [facility] Last Admin: 02/03/22 20:11 Dose: 150 mg Allergies Allergies Allergy/AdvReac Type Severity Reaction Status Date / Time No Known Allergies Allergy Verified 12/04/21 10:54 Assessment & Plan Assessment & Plan (1) Orthostatic hypotension: Status: Acute Code(s): I95.1 - Orthostatic hypotension Assessment and Plan: bp quite high 01/31 ? POST ECT (2) MDD (major depressive disorder), recurrent episode, moderate: Status: Acute Code(s): F33.1 - Major depressive disorder, recurrent, moderate Assessment and Plan: getting ECT- ? if further needed, given confusion and eating - (3) Cognitive impairment: Status: Acute Code(s): R41.89 - Other symptoms and signs involving cognitive functions and awareness Assessment and Plan: more dementia like behavior as depression clears- recheck labs none since 01/09 Plan 76 yo M who is admitted to geriatric psych getting ECT for depression, improving Plan 1. Continue same regimen.? 2. ECT for Thursday and Thursday only. 2. Orthostatic hypotension: Not on any medications Keenan stockings PT evaluation when possible. Avoid psychotic medications and blood pressure medication that can cause orthostasis. 3. Hypothyroidism: TSH is borderline elevated, free T4 is normal Continue levothyroxine I spent __20____ minutes with the patient and/or on the patient floor today, greater than?50% of which was spent counseling/coordinating care. Informed Consent: further education needed Reason for contiued inpatient stay Substantial Risk for: inability to function, rapid decompensation and med/psych decompensation
[2022-02-04] MEDS: ARIPiprazole 5 MG TABLET PO (16:34)
[2022-02-04 18:00] VITALS: BP 101/57; PULSE 80; TEMP 36.7; O2SAT 95
[2022-02-04] MEDS: Atorvastatin Calcium 10 MG TABLET PO (20:31)
[2022-02-04] MEDS: Sertraline HCL 50 MG TABLET 150 MG PO (20:31)
[2022-02-05] MEDS: Multivitamin TABLET 1 TAB PO (08:21)
[2022-02-05] MEDS: Ferrous Sulfate 324 MG TABLET.DR PO (08:21)
[2022-02-05] MEDS: Donepezil HCl 10 MG TABLET PO (08:22)
[2022-02-05] MEDS: calcium polycarbophiL TABLET 2 TAB PO (08:22)
--- NOTE | 2022-02-05 13:30 | MHC.CLN ---
F/U DIET=REGULAR. ENSURE BID PROVIDES ADDITIONAL 700 KCALS, 40 GRAMS PROTEIN. STAFF REPORTS THAT CONTINUES TO EAT WELL. SMALL, FAVORABLE WEIGHT GAIN NOTED. RD TO FOLLOW WEEKLY.
[2022-02-05] MEDS: ARIPiprazole 5 MG TABLET PO (16:34)
--- NOTE | 2022-02-05 16:36 | P.PNPSI_ITS ---
Subjective Subjective Date of Service: 02/05/22 Reason For Visit: Change mental status/depression Subjective Notes: Conditional Voluntary Interim History: The nursing staff reported the patient has been pleasant, cooperative. Still confused with good and better range of affect. On interview the patient denies new symptoms still a little confused. We will start Namenda to target dementia. Mental Status Exam Mental Status Exam Patient Appearance: Well Grooomed Patient Orientation: Person Level of Consciousness: Awake Patient Behavior: Cooperative Mood Description: Calm Affect Description: Calm Patient Cognition Impaired: Yes Ability to Follow Directions: Good Speech Pattern: Clear Hallucinations: None Delusions: Not Present Thought Process: Linear Thought Content: positive for Circumstantial Judgement: Fair Diagnostics Vital Signs (24Hr): Vital Signs - 24 hr 02/04/22 18:00 Temperature 98.1 F Pulse Rate 80 Blood Pressure 101/57 L Pulse Oximetry 95 Oxygen Delivery Method Room Air BMI result Body Mass Index 17.6 Labs Results: 02/03/22 10:53 02/03/22 10:53 Imaging Radiology Impressions: ITS Impressions Head CT 01/09/22 19:11 IMPRESSION: Moderate to large left scalp hematoma without calvarial fracture. No acute intracranial process seen. No left rib fracture abnormality seen. The lungs are clear Ribs X-Ray 01/09/22 19:17 IMPRESSION: Moderate to large left scalp hematoma without calvarial fracture. No acute intracranial process seen. No left rib fracture abnormality seen. The lungs are clear Medications Medications Current Medications Acetaminophen (Acetaminophen 325 Mg Tablet) 650 mg PO Q8H PRN PRN Reason: Pain Acetaminophen (Acetaminophen 325 Mg Tablet) 650 mg PO Q6H PRN PRN Reason: Headache/Pain Mild Scale (1-3) Last Admin: 01/25/22 09:31 Dose: 650 mg Acetaminophen (Acetaminophen 325 Mg Tablet) 650 mg PO ONCE PRN PRN Reason: Pain, Mild (Pain Scale 1-3) Al Hydroxide/Mg Hydroxide (Magnesium Hydrox/Alum Hydrox 30 Ml Oral.Susp) 30 ml PO Q6H PRN PRN Reason: Heartburn/Nausea Aripiprazole (Aripiprazole 5 Mg Tablet) 5 mg PO DAILY@1600 SUJIT Last Admin: 02/05/22 16:34 Dose: 5 mg Atorvastatin Calcium (Atorvastatin Calcium 10 Mg Tablet) 10 mg PO BEDTIME SUJIT Last Admin: 02/04/22 20:31 Dose: 10 mg Bacitracin (Bacitracin Oint 14 Gm Tube) 1 appl TOPICAL BID [facility]; Protocol Last Admin: 02/04/22 21:24 Dose: 1 appl Calcium Polycarbophil (Calcium Polycarbophil Tablet) 2 tab PO DAILY [facility] Last Admin: 02/05/22 08:22 Dose: 2 tab Donepezil HCl (Donepezil Hcl 10 Mg Tablet) 10 mg PO DAILY [facility] Last Admin: 02/05/22 08:22 Dose: 10 mg Ferrous Sulfate (Ferrous Sulfate 324 Mg Tablet.Dr) 324 mg PO DAILY [facility] Last Admin: 02/05/22 08:21 Dose: 324 mg Hydroxyzine HCl (Hydroxyzine Hcl 25 Mg Tablet) 25 mg PO BEDTIME PRN PRN Reason: Anxiety Last Admin: 02/02/22 03:10 Dose: 25 mg Levothyroxine Sodium (Levothyroxine Sodium 75 Mcg Tablet) 75 mcg PO DAILY@0630 [facility] Last Admin: 02/04/22 06:16 Dose: 75 mcg Magnesium Hydroxide (Milk Of Magnesia 30 Ml Oral.Susp) 30 ml PO DAILY PRN PRN Reason: Constipation Last Admin: 01/28/22 15:36 Dose: 30 ml Multivitamins/Vitamin C (Multivitamin Tablet) 1 tab PO DAILY [facility] Last Admin: 02/05/22 08:21 Dose: 1 tab Pharmacy Consult (Consult Rx Perform Med Rec) 1 each MISCELLANE ONCE PRN PRN Reason: Consult order Sertraline HCl (Sertraline Hcl 50 Mg Tablet) 150 mg PO BEDTIME [facility] Last Admin: 02/04/22 20:31 Dose: 150 mg Allergies Allergies Allergy/AdvReac Type Severity Reaction Status Date / Time No Known Allergies Allergy Verified 12/04/21 10:54 Assessment & Plan Assessment & Plan (1) Orthostatic hypotension: Status: Acute Code(s): I95.1 - Orthostatic hypotension Assessment and Plan: bp quite high 01/31 ? POST ECT (2) MDD (major depressive disorder), recurrent episode, moderate: Status: Acute Code(s): F33.1 - Major depressive disorder, recurrent, moderate Assessment and Plan: getting ECT- ? if further needed, given confusion and eating - (3) Cognitive impairment: Status: Acute Code(s): R41.89 - Other symptoms and signs involving cognitive functions and awareness Assessment and Plan: more dementia like behavior as depression clears- recheck labs none since 01/09 Plan 76 yo M who is admitted to geriatric psych getting ECT for depression, improving Plan 1. Continue same regimen.? 2. ECT for Thursday and Thursday only. 2. Orthostatic hypotension: Not on any medications Keenan stockings PT evaluation when possible. Avoid psychotic medications and blood pressure medication that can cause orthostasis. 3. Hypothyroidism: TSH is borderline elevated, free T4 is normal Continue levothyroxine 4. Start Namenda 5 mg daily I spent __20____ minutes with the patient and/or on the patient floor today, greater than?50% of which was spent counseling/coordinating care. Reason for contiued inpatient stay Substantial Risk for: inability to function, rapid decompensation and med/psych decompensation
[2022-02-05] MEDS: Bacitracin Oint 14 GM TUBE 1 APPL TOPICAL (16:39)
[2022-02-05 18:00] VITALS: BP 108/52; PULSE 63; RESP 16; TEMP 36.9; O2SAT 95
[2022-02-05] MEDS: Sertraline HCL 50 MG TABLET 150 MG PO (21:07)
[2022-02-05] MEDS: Atorvastatin Calcium 10 MG TABLET PO (21:07)
[2022-02-06] MEDS: Levothyroxine Sodium 75 MCG TABLET PO (05:29)
[2022-02-06 06:00] VITALS: BP 164/70; PULSE 67; TEMP 36.8; O2SAT 98
[2022-02-06 07:00] VITALS: BMI 17.9
[2022-02-06] MEDS: Donepezil HCl 10 MG TABLET PO (08:27)
[2022-02-06] MEDS: Multivitamin TABLET 1 TAB PO (08:27)
[2022-02-06] MEDS: Ferrous Sulfate 324 MG TABLET.DR PO (08:27)
[2022-02-06] MEDS: Memantine HCl 5 MG TABLET PO (08:27)
[2022-02-06] MEDS: calcium polycarbophiL TABLET 2 TAB PO (08:27)
[2022-02-06] MEDS: Bacitracin Oint 14 GM TUBE 1 APPL TOPICAL ×2 (11:34→22:51)
[2022-02-06] MEDS: ARIPiprazole 5 MG TABLET PO (15:46)
--- NOTE | 2022-02-06 16:32 | P.PNPSI_ITS ---
Subjective Subjective Date of Service: 02/06/22 Reason For Visit: Change mental status/depression Subjective Notes: Conditional Voluntary Interim History: The nursing staff reported the patient has been more energetic, restless at times but easily redirectable. His affect is brighter and he has spontaneous speech. On interview the patient reports that he is feeling better no side effects with the addition of Namenda. Mental Status Exam Mental Status Exam Patient Appearance: Well Grooomed Patient Orientation: Person and Situation Level of Consciousness: Awake Patient Behavior: Cooperative Mood Description: Calm Affect Description: Constricted Patient Cognition Impaired: Yes Ability to Follow Directions: Good Speech Pattern: Clear Hallucinations: None Delusions: Not Present Thought Process: Distracted and Slowed Thinking Thought Content: positive for [place] and positive for Poverty of Content Judgement: Fair Diagnostics Vital Signs (24Hr): Vital Signs - 24 hr 02/05/22 18:00 02/06/22 06:00 Temperature 98.4 F 98.2 F Pulse Rate 63 67 Respiratory Rate 16 Blood Pressure 108/52 L 164/70 H Pulse Oximetry 95 98 Oxygen Delivery Method Room Air Room Air BMI result Body Mass Index 17.6 Labs Results: 02/03/22 10:53 02/03/22 10:53 Imaging Radiology Impressions: ITS Impressions Head CT 01/09/22 19:11 IMPRESSION: Moderate to large left scalp hematoma without calvarial fracture. No acute intracranial process seen. No left rib fracture abnormality seen. The lungs are clear Ribs X-Ray 01/09/22 19:17 IMPRESSION: Moderate to large left scalp hematoma without calvarial fracture. No acute intracranial process seen. No left rib fracture abnormality seen. The lungs are clear Medications Medications Current Medications Acetaminophen (Acetaminophen 325 Mg Tablet) 650 mg PO Q6H PRN PRN Reason: Headache/Pain Mild Scale (1-3) Last Admin: 01/25/22 09:31 Dose: 650 mg Al Hydroxide/Mg Hydroxide (Magnesium Hydrox/Alum Hydrox 30 Ml Oral.Susp) 30 ml PO Q6H PRN PRN Reason: Heartburn/Nausea Aripiprazole (Aripiprazole 5 Mg Tablet) 5 mg PO DAILY@1600 SUJIT Last Admin: 02/06/22 15:46 Dose: 5 mg Atorvastatin Calcium (Atorvastatin Calcium 10 Mg Tablet) 10 mg PO BEDTIME SUJIT Last Admin: 02/05/22 21:07 Dose: 10 mg Bacitracin (Bacitracin Oint 14 Gm Tube) 1 appl TOPICAL BID [facility]; Protocol Last Admin: 02/06/22 11:34 Dose: 1 appl Calcium Polycarbophil (Calcium Polycarbophil Tablet) 2 tab PO DAILY [facility] Last Admin: 02/06/22 08:27 Dose: 2 tab Donepezil HCl (Donepezil Hcl 10 Mg Tablet) 10 mg PO DAILY [facility] Last Admin: 02/06/22 08:27 Dose: 10 mg Ferrous Sulfate (Ferrous Sulfate 324 Mg Tablet.) 324 mg PO DAILY [facility] Last Admin: 02/06/22 08:27 Dose: 324 mg Hydroxyzine HCl (Hydroxyzine Hcl 25 Mg Tablet) 25 mg PO BEDTIME PRN PRN Reason: Anxiety Last Admin: 02/02/22 03:10 Dose: 25 mg Levothyroxine Sodium (Levothyroxine Sodium 75 Mcg Tablet) 75 mcg PO DAILY@0630 [facility] Last Admin: 02/06/22 05:29 Dose: 75 mcg Magnesium Hydroxide (Milk Of Magnesia 30 Ml Oral.Susp) 30 ml PO DAILY PRN PRN Reason: Constipation Last Admin: 01/28/22 15:36 Dose: 30 ml Memantine (Memantine Hcl 5 Mg Tablet) 5 mg PO DAILY [facility] Last Admin: 02/06/22 08:27 Dose: 5 mg Multivitamins/Vitamin C (Multivitamin Tablet) 1 tab PO DAILY [facility] Last Admin: 02/06/22 08:27 Dose: 1 tab Pharmacy Consult (Consult Rx Perform Med Rec) 1 each MISCELLANE ONCE PRN PRN Reason: Consult order Sertraline HCl (Sertraline Hcl 50 Mg Tablet) 150 mg PO BEDTIME [facility] Last Admin: 02/05/22 21:07 Dose: 150 mg Allergies Allergies Allergy/AdvReac Type Severity Reaction Status Date / Time No Known Allergies Allergy Verified 12/04/21 10:54 Assessment & Plan Assessment & Plan (1) Orthostatic hypotension: Status: Acute Code(s): I95.1 - Orthostatic hypotension Assessment and Plan: bp quite high 01/31 ? POST ECT (2) MDD (major depressive disorder), recurrent episode, moderate: Status: Acute Code(s): F33.1 - Major depressive disorder, recurrent, moderate Assessment and Plan: getting ECT- ? if further needed, given confusion and eating - (3) Cognitive impairment: Status: Acute Code(s): R41.89 - Other symptoms and signs involving cognitive functions and awareness Assessment and Plan: more dementia like behavior as depression clears- recheck labs none since 01/09 Plan 76 yo M who is admitted to geriatric psych getting ECT for depression, improving Plan 1. Continue same regimen.? 2. ECT for Thursday and Thursday only. 2. Orthostatic hypotension: Not on any medications Keenan stockings PT evaluation when possible. Avoid psychotic medications and blood pressure medication that can cause orthostasis. 3. Hypothyroidism: TSH is borderline elevated, free T4 is normal Continue levothyroxine 4. Start Namenda 5 mg daily I spent ___20___ minutes with the patient and/or on the patient floor today, greater than?50% of which was spent counseling/coordinating care. Reason for contiued inpatient stay Substantial Risk for: inability to function, rapid decompensation and med/psych decompensation
[2022-02-06 18:00] VITALS: BP 132/63; PULSE 66; RESP 16; TEMP 37.2; O2SAT 98
[2022-02-06] MEDS: Atorvastatin Calcium 10 MG TABLET PO (21:23)
[2022-02-06] MEDS: Sertraline HCL 50 MG TABLET 150 MG PO (21:23)
[2022-02-06] MEDS: hydrOXYzine HCL 25 MG TABLET PO (21:48)
[2022-02-07] VITALS (11 sets, daily range): BP systolic 123–176; BP diastolic 57–138; PULSE 56–136; RESP 14–24; TEMP 36.4–37.1; O2SAT 94–100
[2022-02-07] MEDS: Levothyroxine Sodium 75 MCG TABLET PO (06:03)
--- NOTE | 2022-02-07 07:05 | HO.ANESPROP2 ---
HPI - Anesthesia Eval Consult details Narrative: 76yo male patient for ECT PMFSH Active Problems Active Problems: All Active Problems (Updated 01/09/22 @ 20:20 by Walt Meneses MD) Orthostatic hypotension (Acute) Fall (Acute) Fatigue (Acute) Weight decreased (Acute) Cognitive impairment (Acute) MDD (major depressive disorder), recurrent episode, moderate (Acute) Past Medical History Medical History Depression Depression HLD (hyperlipidemia) HTN (hypertension) Hypothyroidism Prostate cancer Family History Family History Other Prostate cancer Family history of problems with anesthesia: No Surgical History Surgical History H/O prostatectomy History of hernia surgery History of Problems with Anesthesia: No Social History Social History Household Members: Spouse Housing: House Do you presently have visiting nurse or other home services: No Patient Tobacco Use Status: Former Tobacco user Tobacco use type: Cigarette Cigarette Packs Per Day: 1 Cigarettes Per Day: 20.0 Smoked in Last 30 Days: No e-Cigarette/Vaping Use: Never Used Patient Interested in Nicotine Replacement: No Patient Given Instructions on How to Stop Smoking: No Second Hand Smoke Exposure: No Use of substances other than those prescribed or required for medical reasons: No Currently Displaying Signs/Symptoms of Drug Intoxication Withdrawal: No Any prior treatment program specific to substance use: No Have you been hit, kicked, punched, or otherwise hurt by someone within the past year? If so, by whom?: No Do you feel safe in your current relationship?: Yes Is there a partner from a previous relationship who is making you feel unsafe now?: No Are you made to feel afraid or neglected: No Are you DNR?: No Advance Directives: Yes Advance Directives Information Provided: No (declined) Advance Directives on File: Yes Advance Directives Date on File: 01/29/22 Do you have thoughts of harming others: None Do you have a plan to hurt others: No Plan Recently lost weight without trying: No Nutrition Risks: Emaciation/Cachexia Poor oral hygiene: No service: Yes ([employer]) Sexual orientation: Straight/Heterosexual Meds Allergies Allergy/AdvReac Type Severity Reaction Status Date / Time No Known Allergies Allergy Verified 12/04/21 10:54 Active Medications: Current Medications Acetaminophen (Acetaminophen 325 Mg Tablet) 650 mg PO Q6H PRN PRN Reason: Headache/Pain Mild Scale (1-3) Last Admin: 01/25/22 09:31 Dose: 650 mg Al Hydroxide/Mg Hydroxide (Magnesium Hydrox/Alum Hydrox 30 Ml Oral.Susp) 30 ml PO Q6H PRN PRN Reason: Heartburn/Nausea Aripiprazole (Aripiprazole 5 Mg Tablet) 5 mg PO DAILY@1600 [facility] Last Admin: 02/06/22 15:46 Dose: 5 mg Atorvastatin Calcium (Atorvastatin Calcium 10 Mg Tablet) 10 mg PO BEDTIME [facility] Last Admin: 02/06/22 21:23 Dose: 10 mg Bacitracin (Bacitracin Oint 14 Gm Tube) 1 appl TOPICAL BID [facility]; Protocol Last Admin: 02/06/22 22:51 Dose: 1 appl Calcium Polycarbophil (Calcium Polycarbophil Tablet) 2 tab PO DAILY [facility] Last Admin: 02/06/22 08:27 Dose: 2 tab Donepezil HCl (Donepezil Hcl 10 Mg Tablet) 10 mg PO DAILY [facility] Last Admin: 02/06/22 08:27 Dose: 10 mg Ferrous Sulfate (Ferrous Sulfate 324 Mg Tablet.Dr) 324 mg PO DAILY [facility] Last Admin: 02/06/22 08:27 Dose: 324 mg Hydroxyzine HCl (Hydroxyzine Hcl 25 Mg Tablet) 25 mg PO BEDTIME PRN PRN Reason: Anxiety Last Admin: 02/06/22 21:48 Dose: 25 mg Levothyroxine Sodium (Levothyroxine Sodium 75 Mcg Tablet) 75 mcg PO DAILY@0630 [facility] Last Admin: 02/07/22 06:03 Dose: 75 mcg Magnesium Hydroxide (Milk Of Magnesia 30 Ml Oral.Susp) 30 ml PO DAILY PRN PRN Reason: Constipation Last Admin: 01/28/22 15:36 Dose: 30 ml Memantine (Memantine Hcl 5 Mg Tablet) 5 mg PO DAILY [facility] Last Admin: 02/06/22 08:27 Dose: 5 mg Multivitamins/Vitamin C (Multivitamin Tablet) 1 tab PO DAILY [facility] Last Admin: 02/06/22 08:27 Dose: 1 tab Pharmacy Consult (Consult Rx Perform Med Rec) 1 each MISCELLANE ONCE PRN PRN Reason: Consult order Sertraline HCl (Sertraline Hcl 50 Mg Tablet) 150 mg PO BEDTIME SUJIT Last Admin: 02/06/22 21:23 Dose: 150 mg Home Medications Medication Instructions Recorded Confirmed Last Taken Type acetaminophen 650 mg 650 mg PO Q8H PRN Pain 04/04/21 12/31/21 12/29/21 History tablet,extended release sertraline 100 mg tablet 100 mg PO BEDTIME 12/04/21 12/31/21 12/29/21 History aripiprazole 10 mg tablet 1 tab PO DAILY 12/31/21 12/31/21 12/29/21 History donepezil 10 mg tablet 1 tab PO DAILY 12/31/21 12/31/21 12/29/21 History ferrous sulfate 325 mg (65 mg 325 mg PO DAILY 12/31/21 12/31/21 12/29/21 History iron) tablet mirtazapine 15 mg tablet 1 tab PO BEDTIME 12/31/21 12/31/21 12/29/21 History Exam Exam Date and Time: February 07, 2022 0705 Height,Weight and Vital Signs: Height 6 ft Weight 58.967 kg Last Vital Signs Temp 98 F 02/07/22 06:46 Pulse 56 02/07/22 06:46 Resp 16 02/07/22 06:46 BP 170/70 H 02/07/22 06:46 Pulse Ox 94 02/07/22 06:46 O2 Del Method 02/07/22 06:46 O2 Flow Rate 2 02/03/22 08:40 Pertinent Lab Results Pertinent Lab Results: Laboratory Tests 12/30/21 12/30/21 12/30/21 22:53 22:53 23:59 WBC 4.5 L RBC 4.01 L Hgb 12.8 L Hct 38.9 L MCV 97.0 MCH 31.9 MCHC 32.9 RDW 13.2 Plt Count 146 L MPV 9.5 Immature Gran % (Auto) 0.2 Neut % (Auto) 75.1 H Lymph % (Auto) 17.1 L [place] % (Auto) 6.7 Eos % (Auto) 0.7 Baso % (Auto) 0.2 Lymph # (Auto) 0.8 L [place] # (Auto) 0.3 Eos # (Auto) 0.0 Baso # (Auto) 0.0 Abs Immat Gran (auto) 0.01 Absolute Neuts (auto) 3.4 Absolute Nucleated RBC 0.000 Nucleated RBC % (auto) 0.0 Sodium 142 Potassium 4.2 Chloride 99 Carbon Dioxide 34 H Anion Gap 13 BUN 26 H Creatinine 0.94 Estim Creat Clear Calc 54.7 Estimated GFR > 60 Random Glucose 158 H D Fasting Glucose Calcium 9.4 Iron TIBC % Saturation Unsat Iron Binding Total Bilirubin 0.5 AST 30 D ALT 37 Alkaline Phosphatase 61 Total Protein 6.8 Albumin 4.1 Triglycerides Cholesterol LDL Cholesterol, Calc HDL Cholesterol Vitamin B12 Folate TSH Free T4 Urine Color YELLOW Urine Appearance CLEAR Urine pH 6.0 Ur Specific [place] 1.020 Urine Protein NEG Urine Glucose (UA) NEG Urine Ketones 5 Urine Blood NEG Urine Nitrite NEG Ur Leukocyte Esterase NEG COVID-19 (BEV) COVID-19 CIBDO 01/01/22 01/01/22 01/01/22 12:17 12:17 14:18 WBC RBC Hgb Hct MCV MCH MCHC RDW Plt Count MPV Immature Gran % (Auto) Neut % (Auto) Lymph % (Auto) [place] % (Auto) Eos % (Auto) Baso % (Auto) Lymph # (Auto) [place] # (Auto) Eos # (Auto) Baso # (Auto) Abs Immat Gran (auto) Absolute Neuts (auto) Absolute Nucleated RBC Nucleated RBC % (auto) Sodium Potassium Chloride Carbon Dioxide Anion Gap BUN Creatinine Estim Creat Clear Calc Estimated GFR Random Glucose Fasting Glucose Calcium Iron TIBC % Saturation Unsat Iron Binding Total Bilirubin AST ALT Alkaline Phosphatase Total Protein Albumin Triglycerides Cholesterol LDL Cholesterol, Calc HDL Cholesterol Vitamin B12 1416 H Folate > 20.0 TSH 4.20 H Free T4 1.07 Urine Color Urine Appearance Urine pH Ur Specific [place] Urine Protein Urine Glucose (UA) Urine Ketones Urine Blood Urine Nitrite Ur Leukocyte Esterase COVID-19 (BEV) Negative COVID-19 [facility] Com See Note 01/02/22 01/05/22 01/09/22 08:00 18:14 19:54 WBC 5.7 RBC 3.78 L Hgb 11.9 L Hct 36.6 L MCV 96.8 MCH 31.5 MCHC 32.5 RDW 13.4 Plt Count 189 D MPV 9.3 L Immature Gran % (Auto) 0.4 Neut % (Auto) 77.4 H Lymph % (Auto) 12.5 L [place] % (Auto) 7.5 Eos % (Auto) 1.8 Baso % (Auto) 0.4 Lymph # (Auto) 0.7 L [place] # (Auto) 0.4 Eos # (Auto) 0.1 Baso # (Auto) 0.0 Abs Immat Gran (auto) 0.02 Absolute Neuts (auto) 4.4 Absolute Nucleated RBC 0.000 Nucleated RBC % (auto) 0.0 Sodium 140 Potassium 3.9 Chloride 102 Carbon Dioxide 32 H Anion Gap 10 L BUN 24 H Creatinine 0.81 Estim Creat Clear Calc 63.5 Estimated GFR > 60 Random Glucose Fasting Glucose 82 Calcium 9.1 Iron 28 L TIBC 229 % Saturation 12 L Unsat Iron Binding 201 Total Bilirubin 0.3 AST 29 ALT 33 Alkaline Phosphatase 54 Total Protein 6.1 L Albumin 3.7 Triglycerides 85 Cholesterol 151 LDL Cholesterol, Calc 88 HDL Cholesterol 46 Vitamin B12 Folate TSH Free T4 Urine Color Urine Appearance Urine pH Ur Specific [place] Urine Protein Urine Glucose (UA) Urine Ketones Urine Blood Urine Nitrite Ur Leukocyte Esterase COVID-19 (BEV) COVID-19 [facility] Com 01/09/22 01/28/22 01/30/22 19:54 09:30 09:50 WBC RBC Hgb Hct MCV MCH MCHC RDW Plt Count MPV Immature Gran % (Auto) Neut % (Auto) Lymph % (Auto) [place] % (Auto) Eos % (Auto) Baso % (Auto) Lymph # (Auto) [place] # (Auto) Eos # (Auto) Baso # (Auto) Abs Immat Gran (auto) Absolute Neuts (auto) Absolute Nucleated RBC Nucleated RBC % (auto) Sodium 142 Potassium 4.2 Chloride 102 Carbon Dioxide 31 H Anion Gap 13 BUN 32 H Creatinine 0.77 Estim Creat Clear Calc 66.8 Estimated GFR > 60 Random Glucose 105 Fasting Glucose Calcium 8.9 Iron TIBC % Saturation Unsat Iron Binding Total Bilirubin AST ALT Alkaline Phosphatase Total Protein Albumin Triglycerides Cholesterol LDL Cholesterol, Calc HDL Cholesterol Vitamin B12 Folate TSH Free T4 Urine Color Urine Appearance Urine pH Ur Specific [place] Urine Protein Urine Glucose (UA) Urine Ketones Urine Blood Urine Nitrite Ur Leukocyte Esterase COVID-19 (BEV) Negative Negative COVID-19 Clin Com See Note See Note 02/03/22 02/03/22 02/03/22 10:53 10:53 15:25 WBC 12.7 H RBC 4.35 L Hgb 13.9 L Hct 42.0 MCV 96.6 MCH 32.0 MCHC 33.1 RDW 13.2 Plt Count 201 MPV 9.0 L Immature Gran % (Auto) 0.4 Neut % (Auto) 86.1 H Lymph % (Auto) 8.9 L [place] % (Auto) 4.0 Eos % (Auto) 0.4 Baso % (Auto) 0.2 Lymph # (Auto) 1.1 L [place] # (Auto) 0.5 Eos # (Auto) 0.1 Baso # (Auto) 0.0 Abs Immat Gran (auto) 0.05 H Absolute Neuts (auto) 11.0 H Absolute Nucleated RBC 0.000 Nucleated RBC % (auto) 0.0 Sodium 137 Potassium 4.1 Chloride 97 Carbon Dioxide 31 H Anion Gap 13 BUN 21 H Creatinine 0.79 Estim Creat Clear Calc 66.3 Estimated GFR > 60 Random Glucose 100 Fasting Glucose Calcium 9.1 Iron TIBC % Saturation Unsat Iron Binding Total Bilirubin 0.6 AST 22 ALT 20 Alkaline Phosphatase 94 D Total Protein 7.5 D Albumin 4.5 D Triglycerides Cholesterol LDL Cholesterol, Calc HDL Cholesterol Vitamin B12 Folate TSH Free T4 Urine Color Urine Appearance Urine pH Ur Specific [place] Urine Protein Urine Glucose (UA) Urine Ketones Urine Blood Urine Nitrite Ur Leukocyte Esterase COVID-19 (BEV) Negative COVID-19 Clin Com See Note Airway Mallampati Class: II TM Dist: >3cm Neck ROM: Full Loose/Missing/Broken Teeth: Yes (No teeth) Heart: RRR Lungs: CTAB Assessment and Plan Assessment Anesthesia Assessment: Anesthesia Plan Discussed and Chart Reviewed Final Anesthetic Review Family History of Problems with Anesthesia: No History of Problems with Anesthesia: No NPO: Yes ASA Class: III Final Preanesthetic Review: No Changes in Pt Med Stat, Meds/Allgs Chart Reviewed, Consent Obtained/Reviewed and Anes Risks/Benef Reviewed Patient Risk: Intermediate Procedure Risk: Intermediate Anesthetic Plan Anesthetic Plan: GA Disposition: Inp. Admit - Standard Bed
--- NOTE | 2022-02-07 07:28 | MHC.SHP ---
Pre-Procedural Eval Section A Date of Service: 02/07/22 The patient is an INPATIENT: Yes Changes since office visit: Yes Patient answered all questions; No Cold of Flu in the past 2 weeks, No New Medical Problems and No Changes in Medication Section B Chief Complaint: Change mental status/depression Details of Present Illness: recurrent depression Relevant Social History: None Present Medications: see Short Stay Collaborative assessment Medical History: Significant History (hwead injury cognitive impairment ) Allergies: Allergies Allergy/AdvReac Type Severity Reaction Status Date / Time No Known Allergies Allergy Verified 12/04/21 10:54 Review of Systems Sugical H&P ROS: Yes, Specify: Constitution (fatigue ) and Neurological (gait disturbance ) Exam Surgical H&P Exam: Normal: Heart and Normal: Lungs Plan Diagnosis/Plan: Unchanged I have reviewed the history and physical and performed a pertinent physical examination on my patient. No changes have occurred unless specified.
--- NOTE | 2022-02-07 07:32 | HO.ECTPROC ---
ECT Procedure Note Diagnosis/Treatment Date of Service: 02/07/22 Diagnosis: Major Depressive Disorder Previous ECT Date: 02/03/22 Current Treatment Number: 7 Treatment: Series ECT Settings Device: THYMATRON DGx Electrode Placement: Right Unilateral Program/Pulse Width: 0.25 Energy Percent: 60 Seizure Duration By EEG (in seconds): 56 Medications Administration General Anesthetic: Etomidate (8) Muscle Relaxant: Succinylcholine Ancillary Medications Anti-emetics: Zofran - Pre ECT Cardiovascular Medications: Glycopyrrolate Airway Management Airway Management: Bag Mask Ventilation Treatment Recommendations No Changes Recommended: No change Notes: pt seems much improved Pt Tolerated Procedure w/o Issue: Yes
[2022-02-07] MEDS: Multivitamin TABLET 1 TAB PO (09:15)
[2022-02-07] MEDS: Memantine HCl 5 MG TABLET PO (09:16)
[2022-02-07] MEDS: Ferrous Sulfate 324 MG TABLET.DR PO (09:16)
[2022-02-07] MEDS: calcium polycarbophiL TABLET 2 TAB PO (09:16)
[2022-02-07] MEDS: Donepezil HCl 10 MG TABLET PO (09:16)
[2022-02-07] MEDS: Bacitracin Oint 14 GM TUBE 1 APPL TOPICAL (13:10)
--- NOTE | 2022-02-07 14:35 | HO.PSYCHPN ---
Subjective Subjective Date of Service: 02/07/22 Reason For Visit: Change mental status/depression Subjective Notes: Conditional Voluntary Interim History: The nursing staff reported the patient showed a brighter affect, engaging and participating in groups even laughing and more active. Today he was a little hypoactive after ECT is slightly sedated. No new symptoms he looks much better for his depression we will start working on his cognition. Mental Status Exam Mental Status Exam Patient Appearance: Well Grooomed Patient Orientation: Person and Situation Level of Consciousness: Awake Patient Behavior: Cooperative Mood Description: Calm Affect Description: Relaxed Patient Cognition Impaired: Yes Ability to Follow Directions: Good Speech Pattern: Clear Hallucinations: None Delusions: Not Present Thought Process: Linear Thought Content: positive for Intact Judgement: Fair Diagnostics Vital Signs (24Hr): Vital Signs - 24 hr 02/06/22 18:00 02/07/22 06:00 02/07/22 06:06 Temperature 98.9 F 98.7 F 98.7 F Pulse Rate 66 61 61 Respiratory Rate 16 14 14 Blood Pressure 132/63 156/70 H 156/70 H Pulse Oximetry 98 96 Oxygen Delivery Method Room Air Room Air Oxygen Flow Rate 02/07/22 06:46 02/07/22 07:49 02/07/22 07:54 Temperature 98 F 98.7 F Pulse Rate 56 65 136 H Respiratory Rate 16 24 H 22 H Blood Pressure 170/70 H 159/74 H 129/80 Pulse Oximetry 94 98 100 Oxygen Delivery Method Room Air Nasal Cannula Room Air Oxygen Flow Rate 2 02/07/22 07:59 02/07/22 08:05 02/07/22 08:20 Temperature 98.7 F Pulse Rate 127 H 114 H 92 Respiratory Rate 22 H 20 20 Blood Pressure 173/99 H 176/138 H 150/97 H Pulse Oximetry 97 98 98 Oxygen Delivery Method Room Air Room Air Room Air Oxygen Flow Rate 02/07/22 08:37 02/07/22 09:08 Temperature 98.7 F 97.6 F Pulse Rate 79 79 Respiratory Rate 16 16 Blood Pressure 143/68 H 160/67 H Pulse Oximetry 100 95 Oxygen Delivery Method Room Air Room Air Oxygen Flow Rate BMI result Body Mass Index 17.9 Labs Results: 02/03/22 10:53 02/03/22 10:53 Imaging Radiology Impressions: ITS Impressions Head CT 01/09/22 19:11 IMPRESSION: Moderate to large left scalp hematoma without calvarial fracture. No acute intracranial process seen. No left rib fracture abnormality seen. The lungs are clear Ribs X-Ray 01/09/22 19:17 IMPRESSION: Moderate to large left scalp hematoma without calvarial fracture. No acute intracranial process seen. No left rib fracture abnormality seen. The lungs are clear Medications Medications Current Medications Acetaminophen (Acetaminophen 325 Mg Tablet) 650 mg PO Q6H PRN PRN Reason: Headache/Pain Mild Scale (1-3) Last Admin: 01/25/22 09:31 Dose: 650 mg Acetaminophen (Acetaminophen 325 Mg Tablet) 650 mg PO ONCE PRN PRN Reason: Pain, Mild (Pain Scale 1-3) Al Hydroxide/Mg Hydroxide (Magnesium Hydrox/Alum Hydrox 30 Ml Oral.Susp) 30 ml PO Q6H PRN PRN Reason: Heartburn/Nausea Aripiprazole (Aripiprazole 5 Mg Tablet) 5 mg PO DAILY@1600 [facility] Last Admin: 02/06/22 15:46 Dose: 5 mg Atorvastatin Calcium (Atorvastatin Calcium 10 Mg Tablet) 10 mg PO BEDTIME [facility] Last Admin: 02/06/22 21:23 Dose: 10 mg Bacitracin (Bacitracin Oint 14 Gm Tube) 1 appl TOPICAL BID [facility]; Protocol Last Admin: 02/07/22 13:10 Dose: 1 appl Calcium Polycarbophil (Calcium Polycarbophil Tablet) 2 tab PO DAILY [facility] Last Admin: 02/07/22 09:16 Dose: 2 tab Donepezil HCl (Donepezil Hcl 10 Mg Tablet) 10 mg PO DAILY [facility] Last Admin: 02/07/22 09:16 Dose: 10 mg Ferrous Sulfate (Ferrous Sulfate 324 Mg Tablet.) 324 mg PO DAILY [facility] Last Admin: 02/07/22 09:16 Dose: 324 mg Hydroxyzine HCl (Hydroxyzine Hcl 25 Mg Tablet) 25 mg PO BEDTIME PRN PRN Reason: Anxiety Last Admin: 02/06/22 21:48 Dose: 25 mg Lactated Ringer's (Lr) 1,000 mls @ 100 mls/hr IVCONT .Q10H [facility] Levothyroxine Sodium (Levothyroxine Sodium 75 Mcg Tablet) 75 mcg PO DAILY@0630 [facility] Last Admin: 02/07/22 06:03 Dose: 75 mcg Magnesium Hydroxide (Milk Of Magnesia 30 Ml Oral.Susp) 30 ml PO DAILY PRN PRN Reason: Constipation Last Admin: 01/28/22 15:36 Dose: 30 ml Memantine (Memantine Hcl 5 Mg Tablet) 5 mg PO DAILY [facility] Last Admin: 02/07/22 09:16 Dose: 5 mg Multivitamins/Vitamin C (Multivitamin Tablet) 1 tab PO DAILY [facility] Last Admin: 02/07/22 09:15 Dose: 1 tab Ondansetron HCl (Ondansetron Hcl 4 Mg/2 Ml Vial) 4 mg IVPUSH ONCE PRN PRN Reason: Nausea and Vomiting Pharmacy Consult (Consult Rx Perform Med Rec) 1 each MISCELLANE ONCE PRN PRN Reason: Consult order Sertraline HCl (Sertraline Hcl 50 Mg Tablet) 150 mg PO BEDTIME [facility] Last Admin: 02/06/22 21:23 Dose: 150 mg Allergies Allergies Allergy/AdvReac Type Severity Reaction Status Date / Time No Known Allergies Allergy Verified 12/04/21 10:54 Assessment & Plan Assessment & Plan (1) Orthostatic hypotension: Status: Acute Code(s): I95.1 - Orthostatic hypotension Assessment and Plan: bp quite high 01/31 ? POST ECT (2) MDD (major depressive disorder), recurrent episode, moderate: Status: Acute Code(s): F33.1 - Major depressive disorder, recurrent, moderate Assessment and Plan: getting ECT- ? if further needed, given confusion and eating - (3) Cognitive impairment: Status: Acute Code(s): R41.89 - Other symptoms and signs involving cognitive functions and awareness Assessment and Plan: more dementia like behavior as depression clears- recheck labs none since 01/09 Plan 76 yo M who is admitted to geriatric psych getting ECT for depression, improving Plan 1. Continue same regimen.? 2. ECT for Thursday and Thursday only. 2. Orthostatic hypotension: Not on any medications Ke[employer] stockings PT evaluation when possible. Avoid psychotic medications and blood pressure medication that can cause orthostasis. 3. Hypothyroidism: TSH is borderline elevated, free T4 is normal Continue levothyroxine 4. Start Namenda 5 mg daily I spent ___20___ minutes with the patient and/or on the patient floor today, greater than?50% of which was spent counseling/coordinating care. Reason for contiued inpatient stay Substantial Risk for: inability to function, rapid decompensation and med/psych decompensation
[2022-02-07] MEDS: ARIPiprazole 5 MG TABLET PO (17:19)
[2022-02-07] MEDS: Atorvastatin Calcium 10 MG TABLET PO (20:18)
[2022-02-07] MEDS: Sertraline HCL 50 MG TABLET 150 MG PO (20:18)
[2022-02-08] MEDS: Levothyroxine Sodium 75 MCG TABLET PO (05:24)
[2022-02-08 06:00] VITALS: BP 125/55; PULSE 61; RESP 16; TEMP 37.3; O2SAT 96
[2022-02-08] MEDS: Multivitamin TABLET 1 TAB PO (07:58)
[2022-02-08] MEDS: calcium polycarbophiL TABLET 2 TAB PO (07:58)
[2022-02-08] MEDS: Ferrous Sulfate 324 MG TABLET.DR PO (07:58)
[2022-02-08] MEDS: Donepezil HCl 10 MG TABLET PO (07:59)
[2022-02-08] MEDS: Memantine HCl 5 MG TABLET PO (07:59)
--- NOTE | 2022-02-08 15:08 | P.PNPSI_ITS ---
Subjective Subjective Date of Service: 02/08/22 Reason For Visit: Change mental status/depression Subjective Notes: Conditional Voluntary Interim History: Pt in bed. He reports he feels good Pt denies SI/HI. He reports sleeping and eating well. No physical concerns. Per nursing, pt doing well with alarm chair. Medication Compliance: Yes Side effects from medications: No Review of Systems Review of Systems as above. Yes all other systems are reviewed and are negative and Unobtainable due to mental status Reports Normal hearing present Reports Normal hearing present Mental Status Exam Mental Status Exam Narrative: dressed in hospital [facility]. large bruises over left face/orbit/forehead. cooperative. no PMA/PMR. speech WNL. thoughts linear and logical. affect full range and normo-intense. mood improved. no SI/HI/AVH expressed. Diagnostics Vital Signs (24Hr): Vital Signs - 24 hr 02/08/22 20:18 02/09/22 06:00 Temperature 98.3 F 97.2 F Pulse Rate 71 60 Respiratory Rate 16 16 Blood Pressure 98/58 L 125/59 L Pulse Oximetry 96 95 Oxygen Delivery Method Room Air Room Air BMI result Body Mass Index 17.9 Labs Results: 02/03/22 10:53 02/03/22 10:53 Imaging Radiology Impressions: ITS Impressions Head CT 01/09/22 19:11 IMPRESSION: Moderate to large left scalp hematoma without calvarial fracture. No acute intracranial process seen. No left rib fracture abnormality seen. The lungs are clear Ribs X-Ray 01/09/22 19:17 IMPRESSION: Moderate to large left scalp hematoma without calvarial fracture. No acute intracranial process seen. No left rib fracture abnormality seen. The lungs are clear Medications Medications Current Medications Acetaminophen (Acetaminophen 325 Mg Tablet) 650 mg PO Q6H PRN PRN Reason: Headache/Pain Mild Scale (1-3) Last Admin: 01/25/22 09:31 Dose: 650 mg Acetaminophen (Acetaminophen 325 Mg Tablet) 650 mg PO ONCE PRN PRN Reason: Pain, Mild (Pain Scale 1-3) Al Hydroxide/Mg Hydroxide (Magnesium Hydrox/Alum Hydrox 30 Ml Oral.Susp) 30 ml PO Q6H PRN PRN Reason: Heartburn/Nausea Aripiprazole (Aripiprazole 5 Mg Tablet) 5 mg PO DAILY@1600 [facility] Last Admin: 02/08/22 17:16 Dose: 5 mg Atorvastatin Calcium (Atorvastatin Calcium 10 Mg Tablet) 10 mg PO BEDTIME [facility] Last Admin: 02/08/22 20:10 Dose: 10 mg Bacitracin (Bacitracin Oint 14 Gm Tube) 1 appl TOPICAL BID [facility]; Protocol Last Admin: 02/09/22 08:57 Dose: 1 appl Calcium Polycarbophil (Calcium Polycarbophil Tablet) 2 tab PO DAILY [facility] Last Admin: 02/09/22 08:01 Dose: 2 tab Donepezil HCl (Donepezil Hcl 10 Mg Tablet) 10 mg PO DAILY [facility] Last Admin: 02/09/22 08:00 Dose: 10 mg Ferrous Sulfate (Ferrous Sulfate 324 Mg Tablet.Dr) 324 mg PO DAILY [facility] Last Admin: 02/09/22 08:00 Dose: 324 mg Hydroxyzine HCl (Hydroxyzine Hcl 25 Mg Tablet) 25 mg PO BEDTIME PRN PRN Reason: Anxiety Last Admin: 02/06/22 21:48 Dose: 25 mg Levothyroxine Sodium (Levothyroxine Sodium 75 Mcg Tablet) 75 mcg PO DAILY@0630 [facility] Last Admin: 02/09/22 05:06 Dose: 75 mcg Magnesium Hydroxide (Milk Of Magnesia 30 Ml Oral.Susp) 30 ml PO DAILY PRN PRN Reason: Constipation Last Admin: 01/28/22 15:36 Dose: 30 ml Memantine (Memantine Hcl 5 Mg Tablet) 5 mg PO DAILY [facility] Last Admin: 02/09/22 08:01 Dose: 5 mg Multivitamins/Vitamin C (Multivitamin Tablet) 1 tab PO DAILY [facility] Last Admin: 02/09/22 08:00 Dose: 1 tab Ondansetron HCl (Ondansetron Hcl 4 Mg/2 Ml Vial) 4 mg IVPUSH ONCE PRN PRN Reason: Nausea and Vomiting Pharmacy Consult (Consult Rx Perform Med Rec) 1 each MISCELLANE ONCE PRN PRN Reason: Consult order Sertraline HCl (Sertraline Hcl 50 Mg Tablet) 150 mg PO BEDTIME [facility] Last Admin: 02/08/22 20:10 Dose: 150 mg Allergies Allergies Allergy/AdvReac Type Severity Reaction Status Date / Time No Known Allergies Allergy Verified 12/04/21 10:54 Assessment & Plan Assessment & Plan (1) Orthostatic hypotension: Status: Acute Code(s): I95.1 - Orthostatic hypotension Assessment and Plan: bp quite high 7/15 ? POST ECT (2) MDD (major depressive disorder), recurrent episode, moderate: Status: Acute Code(s): F33.1 - Major depressive disorder, recurrent, moderate Assessment and Plan: getting ECT- ? if further needed, given confusion and eating - (3) Cognitive impairment: Status: Acute Code(s): R41.89 - Other symptoms and signs involving cognitive functions and awareness Assessment and Plan: more dementia like behavior as depression clears- recheck labs none since 01/09 Plan 76 yo M who is admitted to geriatric psych getting ECT for depression, improving Plan 1. Continue same regimen.? 2. ECT for Thursday and Thursday only. 2. Orthostatic hypotension: Not on any medications Keen[employer] stockings PT evaluation when possible. Avoid psychotic medications and blood pressure medication that can cause orthostasis. 3. Hypothyroidism: TSH is borderline elevated, free T4 is normal Continue levothyroxine 4. Start Namenda 5 mg daily 02/08 continue current medications. I spent minutes with the patient and/or on the patient floor today, greater than?50% of which was spent counseling/coordinating care. Patient educated on: diagnosis Reason for contiued inpatient stay Substantial Risk for: harm to self
[2022-02-08] MEDS: ARIPiprazole 5 MG TABLET PO (17:16)
[2022-02-08] MEDS: Bacitracin Oint 14 GM TUBE 1 APPL TOPICAL (18:14)
[2022-02-08] MEDS: Atorvastatin Calcium 10 MG TABLET PO (20:10)
[2022-02-08] MEDS: Sertraline HCL 50 MG TABLET 150 MG PO (20:10)
[2022-02-08 20:18] VITALS: BP 98/58; PULSE 71; RESP 16; TEMP 36.8; O2SAT 96
[2022-02-09] MEDS: Levothyroxine Sodium 75 MCG TABLET PO (05:06)
[2022-02-09 06:00] VITALS: BP 125/59; PULSE 60; RESP 16; TEMP 36.2; O2SAT 95
[2022-02-09] MEDS: Donepezil HCl 10 MG TABLET PO (08:00)
[2022-02-09] MEDS: Multivitamin TABLET 1 TAB PO (08:00)
[2022-02-09] MEDS: Ferrous Sulfate 324 MG TABLET.DR PO (08:00)
[2022-02-09] MEDS: Memantine HCl 5 MG TABLET PO (08:01)
[2022-02-09] MEDS: calcium polycarbophiL TABLET 2 TAB PO (08:01)
[2022-02-09] MEDS: Bacitracin Oint 14 GM TUBE 1 APPL TOPICAL (08:57)
--- NOTE | 2022-02-09 13:15 | P.PNPSI_ITS ---
Subjective Subjective Date of Service: 02/09/22 Reason For Visit: Change mental status/depression Subjective Notes: Conditional Voluntary Interim History: Pt more visible today. He reports doing well, ambulating with walker. He denies SI/HI. No physical concerns. No signs of psychosis. Per nursing, pt eating, sleeping well. Medication Compliance: Yes Side effects from medications: No Review of Systems Review of Systems as above. Yes all other systems are reviewed and are negative and Unobtainable due to mental status Reports Normal hearing present Reports Normal hearing present Mental Status Exam Mental Status Exam Narrative: dressed in hospital am[facility]. large bruises over left face/orbit/forehead. cooperative. no PMA/PMR. speech WNL. thoughts linear and logical. affect full range and normo-intense. mood improved. no SI/HI/AVH expressed. Diagnostics Vital Signs (24Hr): Vital Signs - 24 hr 02/08/22 20:18 02/09/22 06:00 Temperature 98.3 F 97.2 F Pulse Rate 71 60 Respiratory Rate 16 16 Blood Pressure 98/58 L 125/59 L Pulse Oximetry 96 95 Oxygen Delivery Method Room Air Room Air BMI result Body Mass Index 17.9 Labs Results: 02/03/22 10:53 02/03/22 10:53 Imaging Radiology Impressions: ITS Impressions Head CT 01/09/22 19:11 IMPRESSION: Moderate to large left scalp hematoma without calvarial fracture. No acute intracranial process seen. No left rib fracture abnormality seen. The lungs are clear Ribs X-Ray 01/09/22 19:17 IMPRESSION: Moderate to large left scalp hematoma without calvarial fracture. No acute intracranial process seen. No left rib fracture abnormality seen. The lungs are clear Medications Medications Current Medications Acetaminophen (Acetaminophen 325 Mg Tablet) 650 mg PO Q6H PRN PRN Reason: Headache/Pain Mild Scale (1-3) Last Admin: 01/25/22 09:31 Dose: 650 mg Acetaminophen (Acetaminophen 325 Mg Tablet) 650 mg PO ONCE PRN PRN Reason: Pain, Mild (Pain Scale 1-3) Al Hydroxide/Mg Hydroxide (Magnesium Hydrox/Alum Hydrox 30 Ml Oral.Susp) 30 ml PO Q6H PRN PRN Reason: Heartburn/Nausea Aripiprazole (Aripiprazole 5 Mg Tablet) 5 mg PO DAILY@1600 [facility] Last Admin: 02/08/22 17:16 Dose: 5 mg Atorvastatin Calcium (Atorvastatin Calcium 10 Mg Tablet) 10 mg PO BEDTIME [facility] Last Admin: 02/08/22 20:10 Dose: 10 mg Bacitracin (Bacitracin Oint 14 Gm Tube) 1 appl TOPICAL BID [facility]; Protocol Last Admin: 02/09/22 08:57 Dose: 1 appl Calcium Polycarbophil (Calcium Polycarbophil Tablet) 2 tab PO DAILY [facility] Last Admin: 02/09/22 08:01 Dose: 2 tab Donepezil HCl (Donepezil Hcl 10 Mg Tablet) 10 mg PO DAILY [facility] Last Admin: 02/09/22 08:00 Dose: 10 mg Ferrous Sulfate (Ferrous Sulfate 324 Mg Tablet.) 324 mg PO DAILY [facility] Last Admin: 02/09/22 08:00 Dose: 324 mg Hydroxyzine HCl (Hydroxyzine Hcl 25 Mg Tablet) 25 mg PO BEDTIME PRN PRN Reason: Anxiety Last Admin: 02/06/22 21:48 Dose: 25 mg Levothyroxine Sodium (Levothyroxine Sodium 75 Mcg Tablet) 75 mcg PO DAILY@0630 [facility] Last Admin: 02/09/22 05:06 Dose: 75 mcg Magnesium Hydroxide (Milk Of Magnesia 30 Ml Oral.Susp) 30 ml PO DAILY PRN PRN Reason: Constipation Last Admin: 01/28/22 15:36 Dose: 30 ml Memantine (Memantine Hcl 5 Mg Tablet) 5 mg PO DAILY [facility] Last Admin: 02/09/22 08:01 Dose: 5 mg Multivitamins/Vitamin C (Multivitamin Tablet) 1 tab PO DAILY [facility] Last Admin: 02/09/22 08:00 Dose: 1 tab Ondansetron HCl (Ondansetron Hcl 4 Mg/2 Ml Vial) 4 mg IVPUSH ONCE PRN PRN Reason: Nausea and Vomiting Pharmacy Consult (Consult Rx Perform Med Rec) 1 each MISCELLANE ONCE PRN PRN Reason: Consult order Sertraline HCl (Sertraline Hcl 50 Mg Tablet) 150 mg PO BEDTIME [facility] Last Admin: 02/08/22 20:10 Dose: 150 mg Allergies Allergies Allergy/AdvReac Type Severity Reaction Status Date / Time No Known Allergies Allergy Verified 12/04/21 10:54 Assessment & Plan Assessment & Plan (1) Orthostatic hypotension: Status: Acute Code(s): I95.1 - Orthostatic hypotension Assessment and Plan: bp quite high 7/15 ? POST ECT (2) MDD (major depressive disorder), recurrent episode, moderate: Status: Acute Code(s): F33.1 - Major depressive disorder, recurrent, moderate Assessment and Plan: getting ECT- ? if further needed, given confusion and eating - (3) Cognitive impairment: Status: Acute Code(s): R41.89 - Other symptoms and signs involving cognitive functions and awareness Assessment and Plan: more dementia like behavior as depression clears- recheck labs none since 01/09 Plan 76 yo M who is admitted to geriatric psych getting ECT for depression, improving Plan 1. Continue same regimen.? 2. ECT for Thursday and Thursday only. 2. Orthostatic hypotension: Not on any medications [employer] stockings PT evaluation when possible. Avoid psychotic medications and blood pressure medication that can cause orthostasis. 3. Hypothyroidism: TSH is borderline elevated, free T4 is normal Continue levothyroxine 4. Start Namenda 5 mg daily 02/08 continue current medications. 02/09 continue current medications. I spent minutes with the patient and/or on the patient floor today, greater than?50% of which was spent counseling/coordinating care. Reason for contiued inpatient stay Substantial Risk for: inability to function
[2022-02-09] MEDS: ARIPiprazole 5 MG TABLET PO (17:20)
[2022-02-09 18:00] VITALS: BP 114/56; PULSE 52; RESP 18; TEMP 37; O2SAT 98
[2022-02-09] MEDS: Atorvastatin Calcium 10 MG TABLET PO (20:34)
[2022-02-09] MEDS: Sertraline HCL 50 MG TABLET 150 MG PO (20:34)
[2022-02-10] VITALS (9 sets, daily range): BP systolic 110–187; BP diastolic 61–105; PULSE 55–106; RESP 12–58; TEMP 36.2–37.1; O2SAT 95–99
[2022-02-10] MEDS: Levothyroxine Sodium 75 MCG TABLET PO (05:37)
--- NOTE | 2022-02-10 05:53 | PC.NURSE ---
Patient assisted to bathroom while in bathroom patient tried to stand up and fell off toilet to floor. No injury and patient assisted back up to toilet and vital signs taken. Neuros normal for patient. Dr. Malave notified and nursing batch plant supervisor Carlos. Patient back to bed with one assist.
--- NOTE | 2022-02-10 06:49 | HO.ANESPROP2 ---
[facility] Active Problems Active Problems: All Active Problems (Updated 01/09/22 @ 20:20 by Walt Meneses MD) Orthostatic hypotension (Acute) Fall (Acute) Fatigue (Acute) Weight decreased (Acute) Cognitive impairment (Acute) MDD (major depressive disorder), recurrent episode, moderate (Acute) Past Medical History Medical History Depression Depression HLD (hyperlipidemia) HTN (hypertension) Hypothyroidism Prostate cancer Family History Family History Other Prostate cancer Family history of problems with anesthesia: No Surgical History Surgical History H/O prostatectomy History of hernia surgery History of Problems with Anesthesia: No Social History Social History Household Members: Spouse Housing: House Do you presently have visiting nurse or other home services: No Patient Tobacco Use Status: Former Tobacco user Tobacco use type: Cigarette Cigarette Packs Per Day: 1 Cigarettes Per Day: 20.0 Smoked in Last 30 Days: No e-Cigarette/Vaping Use: Never Used Patient Interested in Nicotine Replacement: No Patient Given Instructions on How to Stop Smoking: No Second Hand Smoke Exposure: No Use of substances other than those prescribed or required for medical reasons: No Currently Displaying Signs/Symptoms of Drug Intoxication Withdrawal: No Any prior treatment program specific to substance use: No Have you been hit, kicked, punched, or otherwise hurt by someone within the past year? If so, by whom?: No Do you feel safe in your current relationship?: Yes Is there a partner from a previous relationship who is making you feel unsafe now?: No Are you made to feel afraid or neglected: No Are you DNR?: No Advance Directives: Yes Advance Directives Information Provided: No (declined) Advance Directives on File: Yes Advance Directives Date on File: 01/29/22 Do you have thoughts of harming others: None Do you have a plan to hurt others: No Plan Recently lost weight without trying: No Nutrition Risks: Emaciation/Cachexia Poor oral hygiene: No service: Yes ([employer]) Sexual orientation: Straight/Heterosexual Meds Allergies Allergy/AdvReac Type Severity Reaction Status Date / Time No Known Allergies Allergy Verified 12/04/21 10:54 Active Medications: Current Medications Acetaminophen (Acetaminophen 325 Mg Tablet) 650 mg PO Q6H PRN PRN Reason: Headache/Pain Mild Scale (1-3) Last Admin: 01/25/22 09:31 Dose: 650 mg Acetaminophen (Acetaminophen 325 Mg Tablet) 650 mg PO ONCE PRN PRN Reason: Pain, Mild (Pain Scale 1-3) Al Hydroxide/Mg Hydroxide (Magnesium Hydrox/Alum Hydrox 30 Ml Oral.Susp) 30 ml PO Q6H PRN PRN Reason: Heartburn/Nausea Aripiprazole (Aripiprazole 5 Mg Tablet) 5 mg PO DAILY@1600 [facility] Last Admin: 02/09/22 17:20 Dose: 5 mg Atorvastatin Calcium (Atorvastatin Calcium 10 Mg Tablet) 10 mg PO BEDTIME [facility] Last Admin: 02/09/22 20:34 Dose: 10 mg Bacitracin (Bacitracin Oint 14 Gm Tube) 1 appl TOPICAL BID [facility]; Protocol Last Admin: 02/09/22 20:36 Dose: Not Given Calcium Polycarbophil (Calcium Polycarbophil Tablet) 2 tab PO DAILY [facility] Last Admin: 02/09/22 08:01 Dose: 2 tab Donepezil HCl (Donepezil Hcl 10 Mg Tablet) 10 mg PO DAILY [facility] Last Admin: 02/09/22 08:00 Dose: 10 mg Ferrous Sulfate (Ferrous Sulfate 324 Mg Tablet.Dr) 324 mg PO DAILY [facility] Last Admin: 02/09/22 08:00 Dose: 324 mg Hydroxyzine HCl (Hydroxyzine Hcl 25 Mg Tablet) 25 mg PO BEDTIME PRN PRN Reason: Anxiety Last Admin: 02/06/22 21:48 Dose: 25 mg Lactated Ringer's (Lr) 1,000 mls @ 50 mls/hr IVCONT .Q20H [facility] Levothyroxine Sodium (Levothyroxine Sodium 75 Mcg Tablet) 75 mcg PO DAILY@0630 [facility] Last Admin: 02/10/22 05:37 Dose: 75 mcg Magnesium Hydroxide (Milk Of Magnesia 30 Ml Oral.Susp) 30 ml PO DAILY PRN PRN Reason: Constipation Last Admin: 01/28/22 15:36 Dose: 30 ml Memantine (Memantine Hcl 5 Mg Tablet) 5 mg PO DAILY [facility] Last Admin: 02/09/22 08:01 Dose: 5 mg Multivitamins/Vitamin C (Multivitamin Tablet) 1 tab PO DAILY [facility] Last Admin: 02/09/22 08:00 Dose: 1 tab Ondansetron HCl (Ondansetron Hcl 4 Mg/2 Ml Vial) 4 mg IVPUSH ONCE PRN PRN Reason: Nausea and Vomiting Pharmacy Consult (Consult Rx Perform Med Rec) 1 each MISCELLANE ONCE PRN PRN Reason: Consult order Sertraline HCl (Sertraline Hcl 50 Mg Tablet) 150 mg PO BEDTIME [facility] Last Admin: 02/09/22 20:34 Dose: 150 mg Home Medications Medication Instructions Recorded Confirmed Last Taken Type acetaminophen 650 mg 650 mg PO Q8H PRN Pain 04/04/21 12/31/21 12/29/21 History tablet,extended release sertraline 100 mg tablet 100 mg PO BEDTIME 12/04/21 12/31/21 12/29/21 History aripiprazole 10 mg tablet 1 tab PO DAILY 12/31/21 12/31/21 12/29/21 History donepezil 10 mg tablet 1 tab PO DAILY 12/31/21 12/31/21 12/29/21 History ferrous sulfate 325 mg (65 mg 325 mg PO DAILY 12/31/21 12/31/21 12/29/21 History iron) tablet mirtazapine 15 mg tablet 1 tab PO BEDTIME 12/31/21 12/31/21 12/29/21 History Exam Exam Date and Time: February 10, 2022 0649 Height,Weight and Vital Signs: Height 6 ft Weight 59.9 kg Last Vital Signs Temp 97.8 F 02/10/22 06:38 Pulse 56 02/10/22 06:38 Resp 18 02/10/22 06:38 BP 179/61 H 02/10/22 06:38 Pulse Ox 95 02/10/22 06:38 O2 Del Method 02/10/22 06:38 O2 Flow Rate 2 02/07/22 07:49 Pertinent Lab Results Pertinent Lab Results: Laboratory Tests 12/30/21 12/30/21 12/30/21 22:53 22:53 23:59 WBC 4.5 L RBC 4.01 L Hgb 12.8 L Hct 38.9 L MCV 97.0 MCH 31.9 MCHC 32.9 RDW 13.2 Plt Count 146 L MPV 9.5 Immature Gran % (Auto) 0.2 Neut % (Auto) 75.1 H Lymph % (Auto) 17.1 L [place] % (Auto) 6.7 Eos % (Auto) 0.7 Baso % (Auto) 0.2 Lymph # (Auto) 0.8 L [place] # (Auto) 0.3 Eos # (Auto) 0.0 Baso # (Auto) 0.0 Abs Immat Gran (auto) 0.01 Absolute Neuts (auto) 3.4 Absolute Nucleated RBC 0.000 Nucleated RBC % (auto) 0.0 Sodium 142 Potassium 4.2 Chloride 99 Carbon Dioxide 34 H Anion Gap 13 BUN 26 H Creatinine 0.94 Estim Creat Clear Calc 54.7 Estimated GFR > 60 Random Glucose 158 H D Fasting Glucose Calcium 9.4 Iron TIBC % Saturation Unsat Iron Binding Total Bilirubin 0.5 AST 30 D ALT 37 Alkaline Phosphatase 61 Total Protein 6.8 Albumin 4.1 Triglycerides Cholesterol LDL Cholesterol, Calc HDL Cholesterol Vitamin B12 Folate TSH Free T4 Urine Color YELLOW Urine Appearance CLEAR Urine pH 6.0 Ur Specific [place] 1.020 Urine Protein NEG Urine Glucose (UA) NEG Urine Ketones 5 Urine Blood NEG Urine Nitrite NEG Ur Leukocyte Esterase NEG COVID-19 (BEV) COVID-[employer] 01/01/22 01/01/22 01/01/22 12:17 12:17 14:18 WBC RBC Hgb Hct MCV MCH MCHC RDW Plt Count MPV Immature Gran % (Auto) Neut % (Auto) Lymph % (Auto) [place] % (Auto) Eos % (Auto) Baso % (Auto) Lymph # (Auto) [place] # (Auto) Eos # (Auto) Baso # (Auto) Abs Immat Gran (auto) Absolute Neuts (auto) Absolute Nucleated RBC Nucleated RBC % (auto) Sodium Potassium Chloride Carbon Dioxide Anion Gap BUN Creatinine Estim Creat Clear Calc Estimated GFR Random Glucose Fasting Glucose Calcium Iron TIBC % Saturation Unsat Iron Binding Total Bilirubin AST ALT Alkaline Phosphatase Total Protein Albumin Triglycerides Cholesterol LDL Cholesterol, Calc HDL Cholesterol Vitamin B12 1416 H Folate > 20.0 TSH 4.20 H Free T4 1.07 Urine Color Urine Appearance Urine pH Ur Specific [place] Urine Protein Urine Glucose (UA) Urine Ketones Urine Blood Urine Nitrite Ur Leukocyte Esterase COVID-19 (BEV) Negative COVID-19 [employer] Com See Note 01/02/22 01/05/22 01/09/22 08:00 18:14 19:54 WBC 5.7 RBC 3.78 L Hgb 11.9 L Hct 36.6 L MCV 96.8 MCH 31.5 MCHC 32.5 RDW 13.4 Plt Count 189 D MPV 9.3 L Immature Gran % (Auto) 0.4 Neut % (Auto) 77.4 H Lymph % (Auto) 12.5 L [place] % (Auto) 7.5 Eos % (Auto) 1.8 Baso % (Auto) 0.4 Lymph # (Auto) 0.7 L [place] # (Auto) 0.4 Eos # (Auto) 0.1 Baso # (Auto) 0.0 Abs Immat Gran (auto) 0.02 Absolute Neuts (auto) 4.4 Absolute Nucleated RBC 0.000 Nucleated RBC % (auto) 0.0 Sodium 140 Potassium 3.9 Chloride 102 Carbon Dioxide 32 H Anion Gap 10 L BUN 24 H Creatinine 0.81 Estim Creat Clear Calc 63.5 Estimated GFR > 60 Random Glucose Fasting Glucose 82 Calcium 9.1 Iron 28 L TIBC 229 % Saturation 12 L Unsat Iron Binding 201 Total Bilirubin 0.3 AST 29 ALT 33 Alkaline Phosphatase 54 Total Protein 6.1 L Albumin 3.7 Triglycerides 85 Cholesterol 151 LDL Cholesterol, Calc 88 HDL Cholesterol 46 Vitamin B12 Folate TSH Free T4 Urine Color Urine Appearance Urine pH Ur Specific [place] Urine Protein Urine Glucose (UA) Urine Ketones Urine Blood Urine Nitrite Ur Leukocyte Esterase COVID-19 (BEV) COVID-19 Clin Com 01/09/22 01/28/22 01/30/22 19:54 09:30 09:50 WBC RBC Hgb Hct MCV MCH MCHC RDW Plt Count MPV Immature Gran % (Auto) Neut % (Auto) Lymph % (Auto) [place] % (Auto) Eos % (Auto) Baso % (Auto) Lymph # (Auto) [place] # (Auto) Eos # (Auto) Baso # (Auto) Abs Immat Gran (auto) Absolute Neuts (auto) Absolute Nucleated RBC Nucleated RBC % (auto) Sodium 142 Potassium 4.2 Chloride 102 Carbon Dioxide 31 H Anion Gap 13 BUN 32 H Creatinine 0.77 Estim Creat Clear Calc 66.8 Estimated GFR > 60 Random Glucose 105 Fasting Glucose Calcium 8.9 Iron TIBC % Saturation Unsat Iron Binding Total Bilirubin AST ALT Alkaline Phosphatase Total Protein Albumin Triglycerides Cholesterol LDL Cholesterol, Calc HDL Cholesterol Vitamin B12 Folate TSH Free T4 Urine Color Urine Appearance Urine pH Ur Specific [place] Urine Protein Urine Glucose (UA) Urine Ketones Urine Blood Urine Nitrite Ur Leukocyte Esterase COVID-19 (BEV) Negative Negative COVID-19 Clin Com See Note See Note 02/03/22 02/03/22 02/03/22 10:53 10:53 15:25 WBC 12.7 H RBC 4.35 L Hgb 13.9 L Hct 42.0 MCV 96.6 MCH 32.0 MCHC 33.1 RDW 13.2 Plt Count 201 MPV 9.0 L Immature Gran % (Auto) 0.4 Neut % (Auto) 86.1 H Lymph % (Auto) 8.9 L [place] % (Auto) 4.0 Eos % (Auto) 0.4 Baso % (Auto) 0.2 Lymph # (Auto) 1.1 L [place] # (Auto) 0.5 Eos # (Auto) 0.1 Baso # (Auto) 0.0 Abs Immat Gran (auto) 0.05 H Absolute Neuts (auto) 11.0 H Absolute Nucleated RBC 0.000 Nucleated RBC % (auto) 0.0 Sodium 137 Potassium 4.1 Chloride 97 Carbon Dioxide 31 H Anion Gap 13 BUN 21 H Creatinine 0.79 Estim Creat Clear Calc 66.3 Estimated GFR > 60 Random Glucose 100 Fasting Glucose Calcium 9.1 Iron TIBC % Saturation Unsat Iron Binding Total Bilirubin 0.6 AST 22 ALT 20 Alkaline Phosphatase 94 D Total Protein 7.5 D Albumin 4.5 D Triglycerides Cholesterol LDL Cholesterol, Calc HDL Cholesterol Vitamin B12 Folate TSH Free T4 Urine Color Urine Appearance Urine pH Ur Specific [place] Urine Protein Urine Glucose (UA) Urine Ketones Urine Blood Urine Nitrite Ur Leukocyte Esterase COVID-19 (BEV) Negative COVID-19 Clin Com See Note Airway Mallampati Class: II (3 caps bottom) TM Dist: >3cm Neck ROM: Full Heart: rrr Lungs: cta Assessment and Plan Assessment Anesthesia Assessment: Anesthesia Plan Discussed and Chart Reviewed Final Anesthetic Review Family History of Problems with Anesthesia: No History of Problems with Anesthesia: No NPO: Yes ASA Class: III Final Preanesthetic Review: No Changes in Pt Med Stat, Meds/Allgs Chart Reviewed and Consent Obtained/Reviewed Patient Risk: Intermediate Procedure Risk: Intermediate Anesthetic Plan Anesthetic Plan: GA Disposition: Standard PACU
--- NOTE | 2022-02-10 07:07 | MHC.SHP ---
Pre-Procedural Eval Section A Date of Service: 02/10/22 The patient is an INPATIENT: Yes Changes since office visit: No Cold of Flu in the past 2 weeks, No New Medical Problems, No Changes in Medication and No Patient answered all questions The History & Physical has been completed within 30 days and I have reviewed it.: Yes Section B Chief Complaint: Change mental status/depression Allergies: Allergies Allergy/AdvReac Type Severity Reaction Status Date / Time No Known Allergies Allergy Verified 12/04/21 10:54 Plan I have reviewed the history and physical and performed a pertinent physical examination on my patient. No changes have occurred unless specified.
--- NOTE | 2022-02-10 07:49 | HO.ECTPROC ---
ECT Procedure Note Diagnosis/Treatment Date of Service: 02/10/22 Diagnosis: Major Depressive Disorder Previous ECT Date: 02/07/22 Current Treatment Number: 7 Treatment: Series Interval Clinical Notes: The patient's mood has improved, now on twice per week. No side effects ECT Settings Device: THYMATRON DGx Electrode Placement: Right Unilateral Program/Pulse Width: 0.25 Energy Percent: 60 Seizure Duration By EEG (in seconds): 50 By Motor Observation (in seconds): 41 Medications Administration General Anesthetic: Etomidate (12) Muscle Relaxant: Succinylcholine (80) Ancillary Medications Analgesics: Torodol - Pre ECT Anti-emetics: Zofran - Pre ECT Airway Management Airway Management: Bag Mask Ventilation Treatment Recommendations No Changes Recommended: No change Pt Tolerated Procedure w/o Issue: Yes
[2022-02-10] MEDS: Donepezil HCl 10 MG TABLET PO (09:30)
[2022-02-10] MEDS: Ferrous Sulfate 324 MG TABLET.DR PO (09:30)
[2022-02-10] MEDS: Multivitamin TABLET 1 TAB PO (09:30)
[2022-02-10] MEDS: calcium polycarbophiL TABLET 2 TAB PO (09:30)
[2022-02-10] MEDS: Memantine HCl 5 MG TABLET PO (09:30)
--- NOTE | 2022-02-10 15:50 | P.PNPSI_ITS ---
Subjective Subjective Date of Service: 02/10/22 Reason For Visit: Change mental status/depression Subjective Notes: Conditional Voluntary Interim History: The nursing staff reported on rounds, after ECT was done, the patient fell and did not have any injuries, later with realized that he had and hematoma on the back of his head. On interview the patient reports no new symptoms, slightly sedated after ECT. Mood is much better still confused at times. Mental Status Exam Mental Status Exam Patient Appearance: Well Grooomed Patient Orientation: Person Level of Consciousness: Awake Patient Behavior: Cooperative Mood Description: Constricted Affect Description: Calm Patient Cognition Impaired: Yes Ability to Follow Directions: Good Speech Pattern: Clear Hallucinations: None Delusions: Not Present Thought Process: Linear Thought Content: positive for Circumstantial Judgement: Fair Diagnostics Vital Signs (24Hr): Vital Signs - 24 hr 02/09/22 18:00 02/10/22 05:51 02/10/22 06:38 Temperature 98.6 F 98.7 F 97.8 F Pulse Rate 52 73 56 Respiratory Rate 18 20 18 Blood Pressure 114/56 L 169/77 H 179/61 H Pulse Oximetry 98 99 95 Oxygen Delivery Method Room Air Room Air Room Air Oxygen Flow Rate 02/10/22 08:14 02/10/22 08:19 02/10/22 08:24 Temperature 98.3 F Pulse Rate 57 55 97 Respiratory Rate 12 58 H 14 Blood Pressure 187/85 H 169/63 H 160/62 H Pulse Oximetry 99 96 95 Oxygen Delivery Method Nasal Cannula Nasal Cannula Nasal Cannula Oxygen Flow Rate 2 2 2 02/10/22 08:30 02/10/22 08:47 Temperature 98.4 F Pulse Rate 106 H 90 Respiratory Rate 12 16 Blood Pressure 162/105 H 142/69 H Pulse Oximetry 96 95 Oxygen Delivery Method Room Air Room Air Oxygen Flow Rate BMI result Body Mass Index 17.9 Labs Results: 02/03/22 10:53 02/03/22 10:53 Imaging Radiology Impressions: ITS Impressions Head CT 01/09/22 19:11 IMPRESSION: Moderate to large left scalp hematoma without calvarial fracture. No acute intracranial process seen. No left rib fracture abnormality seen. The lungs are clear Ribs X-Ray 01/09/22 19:17 IMPRESSION: Moderate to large left scalp hematoma without calvarial fracture. No acute intracranial process seen. No left rib fracture abnormality seen. The lungs are clear Medications Medications Current Medications Acetaminophen (Acetaminophen 325 Mg Tablet) 650 mg PO Q6H PRN PRN Reason: Headache/Pain Mild Scale (1-3) Last Admin: 01/25/22 09:31 Dose: 650 mg Acetaminophen (Acetaminophen 325 Mg Tablet) 650 mg PO ONCE PRN PRN Reason: Pain, Mild (Pain Scale 1-3) Al Hydroxide/Mg Hydroxide (Magnesium Hydrox/Alum Hydrox 30 Ml Oral.Susp) 30 ml PO Q6H PRN PRN Reason: Heartburn/Nausea Aripiprazole (Aripiprazole 5 Mg Tablet) 5 mg PO DAILY@1600 [facility] Last Admin: 02/09/22 17:20 Dose: 5 mg Atorvastatin Calcium (Atorvastatin Calcium 10 Mg Tablet) 10 mg PO BEDTIME [facility] Last Admin: 02/09/22 20:34 Dose: 10 mg Bacitracin (Bacitracin Oint 14 Gm Tube) 1 appl TOPICAL BID [facility]; Protocol Last Admin: 02/10/22 10:02 Dose: Not Given Calcium Polycarbophil (Calcium Polycarbophil Tablet) 2 tab PO DAILY [facility] Last Admin: 02/10/22 09:30 Dose: 2 tab Donepezil HCl (Donepezil Hcl 10 Mg Tablet) 10 mg PO DAILY [facility] Last Admin: 02/10/22 09:30 Dose: 10 mg Ferrous Sulfate (Ferrous Sulfate 324 Mg Tablet.Dr) 324 mg PO DAILY [facility] Last Admin: 02/10/22 09:30 Dose: 324 mg Hydroxyzine HCl (Hydroxyzine Hcl 25 Mg Tablet) 25 mg PO BEDTIME PRN PRN Reason: Anxiety Last Admin: 02/06/22 21:48 Dose: 25 mg Levothyroxine Sodium (Levothyroxine Sodium 75 Mcg Tablet) 75 mcg PO DAILY@0630 [facility] Last Admin: 02/10/22 05:37 Dose: 75 mcg Magnesium Hydroxide (Milk Of Magnesia 30 Ml Oral.Susp) 30 ml PO DAILY PRN PRN Reason: Constipation Last Admin: 01/28/22 15:36 Dose: 30 ml Memantine (Memantine Hcl 5 Mg Tablet) 5 mg PO DAILY [facility] Last Admin: 02/10/22 09:30 Dose: 5 mg Multivitamins/Vitamin C (Multivitamin Tablet) 1 tab PO DAILY [facility] Last Admin: 02/10/22 09:30 Dose: 1 tab Ondansetron HCl (Ondansetron Hcl 4 Mg/2 Ml Vial) 4 mg IVPUSH ONCE PRN PRN Reason: Nausea and Vomiting Pharmacy Consult (Consult Rx Perform Med Rec) 1 each MISCELLANE ONCE PRN PRN Reason: Consult order Sertraline HCl (Sertraline Hcl 50 Mg Tablet) 150 mg PO BEDTIME [facility] Last Admin: 02/09/22 20:34 Dose: 150 mg Allergies Allergies Allergy/AdvReac Type Severity Reaction Status Date / Time No Known Allergies Allergy Verified 12/04/21 10:54 Assessment & Plan Assessment & Plan (1) Orthostatic hypotension: Status: Acute Code(s): I95.1 - Orthostatic hypotension Assessment and Plan: bp quite high 01/31 ? POST ECT (2) MDD (major depressive disorder), recurrent episode, moderate: Status: Acute Code(s): F33.1 - Major depressive disorder, recurrent, moderate Assessment and Plan: getting ECT- ? if further needed, given confusion and eating - (3) Cognitive impairment: Status: Acute Code(s): R41.89 - Other symptoms and signs involving cognitive functions and awareness Assessment and Plan: more dementia like behavior as depression clears- recheck labs none since 01/09 Plan 76 yo M who is admitted to geriatric psych getting ECT for depression, improving Plan 1. Continue same regimen.? 2. ECT for Thursday and Thursday only. 2. Orthostatic hypotension: Not on any medications Keenan stockings PT evaluation when possible. Avoid psychotic medications and blood pressure medication that can cause orthostasis. 3. Hypothyroidism: TSH is borderline elevated, free T4 is normal Continue levothyroxine 4. Start Namenda 5 mg daily I spent ___20___ minutes with the patient and/or on the patient floor today, greater than?50% of which was spent counseling/coordinating care. Reason for contiued inpatient stay Substantial Risk for: inability to function, rapid decompensation and med/psych decompensation
--- NOTE | 2022-02-10 16:24 | HO.PM.IMPN ---
Subjective Subjective Date of Service: 02/11/22 Interval History: just Called to evaluate patient after he fell in bathroom patient lost his balance while sitting on the commode, at present patient is awake alert denies headache dizziness, no visual symptoms, has mild discomfort at site of left parietal subcutaneous hematoma, he denies nausea vomiting tolerating diet. Review of Systems Review of Systems: Yes all other systems are reviewed and are negative Physical Exam Vital Signs: Vital Signs: Last Vital Signs Temp 98.4 F 02/10/22 08:47 Pulse 90 02/10/22 08:47 Resp 16 02/10/22 08:47 BP 142/69 H 02/10/22 08:47 Pulse Ox 95 02/10/22 08:47 O2 Del Method 02/10/22 08:47 O2 Flow Rate 2 02/10/22 08:24 BMI result Body Mass Index 17.9 Const: Other: General sitting in chair in no acute distress. Neck no JVD. CVS regular rate rhythm, Respiratory lungs clear to auscultation, no respiratory distress, no wheeze, no rhonchi. Gastrointestinal abdomen soft, nontender, bowel sounds audible, no guarding , no rigidity. Extremities no edema. Neuro nonfocal ,speech clear, normal up was remitted stress. Skin left facial ecchymosis Left parietal small hematoma Objective Data Active Medications Acetaminophen (Acetaminophen 325 Mg Tablet) 650 mg PO Q6H PRN PRN Reason: Headache/Pain Mild Scale (1-3) Last Admin: 01/25/22 09:31 Dose: 650 mg Documented By: CHERYL Acetaminophen (Acetaminophen 325 Mg Tablet) 650 mg PO ONCE PRN PRN Reason: Pain, Mild (Pain Scale 1-3) Al Hydroxide/Mg Hydroxide (Magnesium Hydrox/Alum Hydrox 30 Ml Oral.Susp) 30 ml PO Q6H PRN PRN Reason: Heartburn/Nausea Aripiprazole (Aripiprazole 5 Mg Tablet) 5 mg PO DAILY@1600 [facility] Last Admin: 02/09/22 17:20 Dose: 5 mg Documented By: PRECIOUS Atorvastatin Calcium (Atorvastatin Calcium 10 Mg Tablet) 10 mg PO BEDTIME [facility] Last Admin: 02/09/22 20:34 Dose: 10 mg Documented By: BETH Bacitracin (Bacitracin Oint 14 Gm Tube) 1 appl TOPICAL BID [facility]; Protocol Last Admin: 02/10/22 10:02 Dose: Not Given Documented By: KVNG Non-Admin Reason: Patient Refused Calcium Polycarbophil (Calcium Polycarbophil Tablet) 2 tab PO DAILY [facility] Last Admin: 02/10/22 09:30 Dose: 2 tab Documented By: KVNG Donepezil HCl (Donepezil Hcl 10 Mg Tablet) 10 mg PO DAILY [facility] Last Admin: 02/10/22 09:30 Dose: 10 mg Documented By: KVNG Ferrous Sulfate (Ferrous Sulfate 324 Mg Tablet.) 324 mg PO DAILY [facility] Last Admin: 02/10/22 09:30 Dose: 324 mg Documented By: KVNG Hydroxyzine HCl (Hydroxyzine Hcl 25 Mg Tablet) 25 mg PO BEDTIME PRN PRN Reason: Anxiety Last Admin: 02/06/22 21:48 Dose: 25 mg Documented By: ERIKA Levothyroxine Sodium (Levothyroxine Sodium 75 Mcg Tablet) 75 mcg PO DAILY@0630 [facility] Last Admin: 02/10/22 05:37 Dose: 75 mcg Documented By: BETH Magnesium Hydroxide (Milk Of Magnesia 30 Ml Oral.Susp) 30 ml PO DAILY PRN PRN Reason: Constipation Last Admin: 01/28/22 15:36 Dose: 30 ml Documented By: EHSAN Memantine (Memantine Hcl 5 Mg Tablet) 5 mg PO DAILY [facility] Last Admin: 02/10/22 09:30 Dose: 5 mg Documented By: KVNG Multivitamins/Vitamin C (Multivitamin Tablet) 1 tab PO DAILY [facility] Last Admin: 02/10/22 09:30 Dose: 1 tab Documented By: KVNG Ondansetron HCl (Ondansetron Hcl 4 Mg/2 Ml Vial) 4 mg IVPUSH ONCE PRN PRN Reason: Nausea and Vomiting Pharmacy Consult (Consult Rx Perform Med Rec) 1 each MISCELLANE ONCE PRN PRN Reason: Consult order Sertraline HCl (Sertraline Hcl 50 Mg Tablet) 150 mg PO BEDTIME [facility] Last Admin: 02/09/22 20:34 Dose: 150 mg Documented By: BETH Labs CBC & Chem 7: 02/03/22 10:53 02/11/22 12:20 Assessment and Plan (1) Fall: Status: Acute (2) Left parietal scalp hematoma: Status: Acute Plan Call to assess patient home after a fall and a small left parietal hematoma Mechanical fall/small left parietal scalp hematoma Patient denies loss of consciousness is able to describe the event, offers no neurological symptoms of headache, dizziness, no nausea, no vomiting, no hip discomfort Head CT showed no acute intracranial bleed No further intervention recommended, Tylenol for pain Recommend PT eval Check Orthostatic blood pressure Quality Stroke Does the patient have a stroke diagnosis?: No VTE Prior VTE?: No VTE Risk Level:: Medical - moderate - high VTE Device Contraindication: N/A - Device Ordered VTE Drug Contraindication: Treatment Not Indicated
[2022-02-10] MEDS: ARIPiprazole 5 MG TABLET PO (17:20)
--- NOTE | 2022-02-10 19:59 | PC.NURSE ---
9:25 Pt returned from ect via WC. Sat to have breakfast and ate without incident. Pt to room and changed with assistance. It was noted at 11:30 am pt had a bump to left upper back of head. no ecchymosis or abrasion noted. Neuro checks within normal limits VSS Denies pain or discomfort. TC to to notify her of pts fall. message left Pt remains in wheelchair with occas walking always with assisstance. Dr. Khan notified and orders received. hospitalist notified. pt to CT at 14:30. Returned to unit and requesting to stay in day room. was coloring without incident. returned call approx 13:30 with understanding and made aware of family meeting for tomorrow at 11:30
[2022-02-10] MEDS: Atorvastatin Calcium 10 MG TABLET PO (20:50)
[2022-02-10] MEDS: Sertraline HCL 50 MG TABLET 150 MG PO (20:50)
[2022-02-10] MEDS: Bacitracin Oint 14 GM TUBE 1 APPL TOPICAL (20:58)
[2022-02-11] MEDS: Levothyroxine Sodium 75 MCG TABLET PO (05:29)
[2022-02-11 06:00] VITALS: BP 146/66; PULSE 86; RESP 20; TEMP 38.6; O2SAT 93
[2022-02-11 08:33] LABS: COVID-19 Test Negative (Negative)
[2022-02-11] MEDS: calcium polycarbophiL TABLET 2 TAB PO (09:37)
[2022-02-11] MEDS: Ferrous Sulfate 324 MG TABLET.DR PO (09:37)
[2022-02-11] MEDS: Memantine HCl 5 MG TABLET PO (09:37)
[2022-02-11] MEDS: Acetaminophen 325 MG TABLET 650 MG PO (09:37)
[2022-02-11] MEDS: Multivitamin TABLET 1 TAB PO (09:37)
[2022-02-11] MEDS: Donepezil HCl 10 MG TABLET PO (09:37)
[2022-02-11 11:25] VITALS: TEMP 37
--- NOTE | 2022-02-11 12:04 | HO.PSYCHPN ---
Subjective Subjective Date of Service: 02/11/22 Reason For Visit: Change mental status/depression Subjective Notes: Conditional Voluntary Interim History: Nursing staff reported the patient spiked with fever 101 today in the morning. His COVID-19 negative. He feels tired with some cough. Today we had a family meeting with his and daughter and they have seen that his mood is better but he seems more day condition. We will explore other options for discharge planning. On interview the patient reports feeling fine but at this moment week with cough and fever not feeling very well. We will order a CBC with differential and a chest x-ray. Mental Status Exam Mental Status Exam Patient Appearance: Well Grooomed Patient Orientation: Person and Situation Level of Consciousness: Awake Patient Behavior: Cooperative Mood Description: Calm Affect Description: Labile Patient Cognition Impaired: Yes Ability to Follow Directions: Good Speech Pattern: Clear Hallucinations: None Delusions: Not Present Thought Process: Distracted Thought Content: positive for [place] Judgement: Fair Diagnostics Vital Signs (24Hr): Vital Signs - 24 hr 02/10/22 15:00 02/10/22 19:30 02/11/22 06:00 Temperature 97.1 F 98.2 F 101.5 F H Pulse Rate 73 78 86 Respiratory Rate 18 18 20 Blood Pressure 138/78 110/62 146/66 H Pulse Oximetry 97 97 93 Oxygen Delivery Method Room Air Room Air Room Air 02/11/22 11:25 Temperature 98.6 F Pulse Rate Respiratory Rate Blood Pressure Pulse Oximetry Oxygen Delivery Method BMI result Body Mass Index 17.9 Labs Results: 02/03/22 10:53 02/03/22 10:53 Labs: Laboratory Results - last 48 hr 02/11/22 08:07 COVID-19 (BEV) Negative COVID-19 Clin Com See Note Imaging Radiology Impressions: ITS Impressions Head CT 01/09/22 19:11 IMPRESSION: Moderate to large left scalp hematoma without calvarial fracture. No acute intracranial process seen. No left rib fracture abnormality seen. The lungs are clear Ribs X-Ray 01/09/22 19:17 IMPRESSION: Moderate to large left scalp hematoma without calvarial fracture. No acute intracranial process seen. No left rib fracture abnormality seen. The lungs are clear Head CT 02/10/22 15:03 IMPRESSION: No evidence of acute intracranial hemorrhage or edematous territorial infarction. Medications Medications Current Medications Acetaminophen (Acetaminophen 325 Mg Tablet) 650 mg PO Q6H PRN PRN Reason: Headache/Pain Mild Scale (1-3) Last Admin: 02/11/22 09:37 Dose: 650 mg Acetaminophen (Acetaminophen 325 Mg Tablet) 650 mg PO ONCE PRN PRN Reason: Pain, Mild (Pain Scale 1-3) Al Hydroxide/Mg Hydroxide (Magnesium Hydrox/Alum Hydrox 30 Ml Oral.Susp) 30 ml PO Q6H PRN PRN Reason: Heartburn/Nausea Aripiprazole (Aripiprazole 5 Mg Tablet) 5 mg PO DAILY@1600 [facility] Last Admin: 02/10/22 17:20 Dose: 5 mg Atorvastatin Calcium (Atorvastatin Calcium 10 Mg Tablet) 10 mg PO BEDTIME [facility] Last Admin: 02/10/22 20:50 Dose: 10 mg Bacitracin (Bacitracin Oint 14 Gm Tube) 1 appl TOPICAL BID [facility]; Protocol Last Admin: 02/11/22 09:37 Dose: Not Given Calcium Polycarbophil (Calcium Polycarbophil Tablet) 2 tab PO DAILY [facility] Last Admin: 02/11/22 09:37 Dose: 2 tab Donepezil HCl (Donepezil Hcl 10 Mg Tablet) 10 mg PO DAILY [facility] Last Admin: 02/11/22 09:37 Dose: 10 mg Ferrous Sulfate (Ferrous Sulfate 324 Mg Tablet.Dr) 324 mg PO DAILY [facility] Last Admin: 02/11/22 09:37 Dose: 324 mg Hydroxyzine HCl (Hydroxyzine Hcl 25 Mg Tablet) 25 mg PO BEDTIME PRN PRN Reason: Anxiety Last Admin: 02/06/22 21:48 Dose: 25 mg Levothyroxine Sodium (Levothyroxine Sodium 75 Mcg Tablet) 75 mcg PO DAILY@0630 [facility] Last Admin: 02/11/22 05:29 Dose: 75 mcg Magnesium Hydroxide (Milk Of Magnesia 30 Ml Oral.Susp) 30 ml PO DAILY PRN PRN Reason: Constipation Last Admin: 01/28/22 15:36 Dose: 30 ml Memantine (Memantine Hcl 5 Mg Tablet) 5 mg PO DAILY [facility] Last Admin: 02/11/22 09:37 Dose: 5 mg Multivitamins/Vitamin C (Multivitamin Tablet) 1 tab PO DAILY [facility] Last Admin: 02/11/22 09:37 Dose: 1 tab Ondansetron HCl (Ondansetron Hcl 4 Mg/2 Ml Vial) 4 mg IVPUSH ONCE PRN PRN Reason: Nausea and Vomiting Pharmacy Consult (Consult Rx Perform Med Rec) 1 each MISCELLANE ONCE PRN PRN Reason: Consult order Sertraline HCl (Sertraline Hcl 50 Mg Tablet) 150 mg PO BEDTIME [facility] Last Admin: 02/10/22 20:50 Dose: 150 mg Allergies Allergies Allergy/AdvReac Type Severity Reaction Status Date / Time No Known Allergies Allergy Verified 12/04/21 10:54 Assessment & Plan Assessment & Plan (1) Orthostatic hypotension: Status: Acute Code(s): I95.1 - Orthostatic hypotension Assessment and Plan: bp quite high 01/31 ? POST ECT (2) MDD (major depressive disorder), recurrent episode, moderate: Status: Acute Code(s): F33.1 - Major depressive disorder, recurrent, moderate Assessment and Plan: getting ECT- ? if further needed, given confusion and eating - (3) Cognitive impairment: Status: Acute Code(s): R41.89 - Other symptoms and signs involving cognitive functions and awareness Assessment and Plan: more dementia like behavior as depression clears- recheck labs none since 01/09 Plan 76 yo M who is admitted to geriatric psych getting ECT for depression, improving Plan 1. Continue same regimen.? 2. ECT for Thursday and Thursday only. 2. Orthostatic hypotension: Not on any medications [place] stockings PT evaluation when possible. Avoid psychotic medications and blood pressure medication that can cause orthostasis. 3. Hypothyroidism: TSH is borderline elevated, free T4 is normal Continue levothyroxine 4. Start Namenda 5 mg daily I spent ___20___ minutes with the patient and/or on the patient floor today, greater than?50% of which was spent counseling/coordinating care. Reason for contiued inpatient stay Substantial Risk for: inability to function, rapid decompensation and med/psych decompensation
[2022-02-11 12:40] LABS: Anion Gap 11 (12-20); Blood Urea Nitrogen 23 mg/dL (9-16); Calcium 9.2 mg/dL (8.4-10.2); Carbon Dioxide 33 mmol/L (22-29); Chloride 98 mmol/L (96-108); Creatinine Clr Calc Pharmacy 64.1; Estimated Glomerular Filt Rate > 60; Glucose Random 110 mg/dL (60-115); Sodium 138 mmol/L (135-145)
[2022-02-11 13:46] VITALS: BP 146/66; PULSE 86; O2SAT 93
[2022-02-11] MEDS: ARIPiprazole 5 MG TABLET PO (17:27)
[2022-02-11 19:45] VITALS: BP 116/55; PULSE 56; RESP 14; TEMP 36.9; O2SAT 93
[2022-02-11] MEDS: Atorvastatin Calcium 10 MG TABLET PO (19:52)
[2022-02-11] MEDS: Sertraline HCL 50 MG TABLET 150 MG PO (19:52)
[2022-02-12] MEDS: Levothyroxine Sodium 75 MCG TABLET PO (05:40)
[2022-02-12 06:00] VITALS: BP 126/60; PULSE 61; RESP 16; TEMP 36.7; O2SAT 93
[2022-02-12] MEDS: Ferrous Sulfate 324 MG TABLET.DR PO (08:03)
[2022-02-12] MEDS: Memantine HCl 5 MG TABLET PO (08:03)
[2022-02-12] MEDS: Donepezil HCl 10 MG TABLET PO (08:03)
[2022-02-12] MEDS: Multivitamin TABLET 1 TAB PO (08:03)
[2022-02-12] MEDS: calcium polycarbophiL TABLET 2 TAB PO (08:09)
[2022-02-12] MEDS: Bacitracin Oint 14 GM TUBE 1 APPL TOPICAL (11:02)
--- NOTE | 2022-02-12 12:22 | MHC.CLN ---
F/U DIET=REGULAR. STAFF REPORTS THAT PATIENT CONTINUES TO EAT WELL. FAVORABLE WEIGHT GAIN SINCE 01/02/22=+5.3%. NOT RECEIVING ENSURE SUPPLEMENT. PER STAFF, TOOK SIPS ONLY. RD TO FOLLOW EVERY OTHER WEEK.
--- NOTE | 2022-02-12 15:34 | HO.PSYCHPN ---
Subjective Subjective Date of Service: 02/12/22 Reason For Visit: Change mental status/depression Subjective Notes: Conditional Voluntary Interim History: The nursing staff reported the patient has been pleasant, cooperative, fully compliant with treatment. PT assessed him and stated that he could be discharged with home services. Yesterday we had a family meeting and it was clear that the patient, regarding his depression, is much better but still he looks weaker than before. On interview the patient denies new symptoms. Mental Status Exam Mental Status Exam Patient Appearance: Appropriate Patient Orientation: Person and Situation Level of Consciousness: Awake Patient Behavior: Cooperative Mood Description: Appropriate Affect Description: Constricted Patient Cognition Impaired: Yes Ability to Follow Directions: Good Speech Pattern: Clear Hallucinations: None Delusions: Not Present Thought Process: Linear Thought Content: positive for [place] and positive for Poverty of Content Judgement: Fair Diagnostics Vital Signs (24Hr): Vital Signs - 24 hr 02/11/22 19:45 02/12/22 06:00 Temperature 98.4 F 98.1 F Pulse Rate 56 61 Respiratory Rate 14 16 Blood Pressure 116/55 L 126/60 Pulse Oximetry 93 93 Oxygen Delivery Method Room Air Room Air BMI result Body Mass Index 17.9 Labs Results: 02/03/22 10:53 02/11/22 12:20 Labs: Laboratory Results - last 48 hr 02/11/22 02/11/22 08:07 12:20 Sodium 138 Potassium 4.0 Chloride 98 Carbon Dioxide 33 H Anion Gap 11 L BUN 23 H Creatinine 0.83 Estim Creat Clear Calc 64.1 Estimated GFR > 60 Random Glucose 110 Calcium 9.2 COVID-19 (BEV) Negative COVID-19 Clin Com See Note Imaging Radiology Impressions: ITS Impressions Head CT 01/09/22 19:11 IMPRESSION: Moderate to large left scalp hematoma without calvarial fracture. No acute intracranial process seen. No left rib fracture abnormality seen. The lungs are clear Ribs X-Ray 01/09/22 19:17 IMPRESSION: Moderate to large left scalp hematoma without calvarial fracture. No acute intracranial process seen. No left rib fracture abnormality seen. The lungs are clear Head CT 02/10/22 15:03 IMPRESSION: No evidence of acute intracranial hemorrhage or edematous territorial infarction. Chest X-Ray 02/11/22 13:09 IMPRESSION: * No evidence of pneumonia. * There is likely a small hiatal hernia of the stomach. Medications Medications Current Medications Acetaminophen (Acetaminophen 325 Mg Tablet) 650 mg PO Q6H PRN PRN Reason: Headache/Pain Mild Scale (1-3) Last Admin: 02/11/22 09:37 Dose: 650 mg Acetaminophen (Acetaminophen 325 Mg Tablet) 650 mg PO ONCE PRN PRN Reason: Pain, Mild (Pain Scale 1-3) Al Hydroxide/Mg Hydroxide (Magnesium Hydrox/Alum Hydrox 30 Ml Oral.Susp) 30 ml PO Q6H PRN PRN Reason: Heartburn/Nausea Aripiprazole (Aripiprazole 5 Mg Tablet) 5 mg PO DAILY@1600 [facility] Last Admin: 02/11/22 17:27 Dose: 5 mg Atorvastatin Calcium (Atorvastatin Calcium 10 Mg Tablet) 10 mg PO BEDTIME [facility] Last Admin: 02/11/22 19:52 Dose: 10 mg Bacitracin (Bacitracin Oint 14 Gm Tube) 1 appl TOPICAL BID [facility]; Protocol Last Admin: 02/12/22 11:02 Dose: 1 appl Calcium Polycarbophil (Calcium Polycarbophil Tablet) 2 tab PO DAILY [facility] Last Admin: 02/12/22 08:09 Dose: 2 tab Donepezil HCl (Donepezil Hcl 10 Mg Tablet) 10 mg PO DAILY [facility] Last Admin: 02/12/22 08:03 Dose: 10 mg Ferrous Sulfate (Ferrous Sulfate 324 Mg Tablet.Dr) 324 mg PO DAILY [facility] Last Admin: 02/12/22 08:03 Dose: 324 mg Hydroxyzine HCl (Hydroxyzine Hcl 25 Mg Tablet) 25 mg PO BEDTIME PRN PRN Reason: Anxiety Last Admin: 02/06/22 21:48 Dose: 25 mg Levothyroxine Sodium (Levothyroxine Sodium 75 Mcg Tablet) 75 mcg PO DAILY@0630 [facility] Last Admin: 02/12/22 05:40 Dose: 75 mcg Magnesium Hydroxide (Milk Of Magnesia 30 Ml Oral.Susp) 30 ml PO DAILY PRN PRN Reason: Constipation Last Admin: 01/28/22 15:36 Dose: 30 ml Memantine (Memantine Hcl 5 Mg Tablet) 5 mg PO DAILY [facility] Last Admin: 02/12/22 08:03 Dose: 5 mg Multivitamins/Vitamin C (Multivitamin Tablet) 1 tab PO DAILY [facility] Last Admin: 02/12/22 08:03 Dose: 1 tab Ondansetron HCl (Ondansetron Hcl 4 Mg/2 Ml Vial) 4 mg IVPUSH ONCE PRN PRN Reason: Nausea and Vomiting Pharmacy Consult (Consult Rx Perform Med Rec) 1 each MISCELLANE ONCE PRN PRN Reason: Consult order Sertraline HCl (Sertraline Hcl 50 Mg Tablet) 150 mg PO BEDTIME [facility] Last Admin: 02/11/22 19:52 Dose: 150 mg Allergies Allergies Allergy/AdvReac Type Severity Reaction Status Date / Time No Known Allergies Allergy Verified 12/04/21 10:54 Assessment & Plan Assessment & Plan (1) Fall: Status: Acute Code(s): W19.XXXA - Unspecified fall, initial encounter (2) Left parietal scalp hematoma: Status: Acute Code(s): S00.03XA - Contusion of scalp, initial encounter Plan Call to assess patient home after a fall and a small left parietal hematoma Mechanical fall/small left parietal scalp hematoma Patient denies loss of consciousness is able to describe the event, offers no neurological symptoms of headache, dizziness, no nausea, no vomiting, no hip discomfort Head CT showed no acute intracranial bleed No further intervention recommended, Tylenol for pain Recommend PT eval Check Orthostatic blood pressure I spent ___20___ minutes with the patient and/or on the patient floor today, greater than?50% of which was spent counseling/coordinating care. Reason for contiued inpatient stay Substantial Risk for: inability to function, rapid decompensation and med/psych decompensation
[2022-02-12] MEDS: ARIPiprazole 5 MG TABLET PO (17:14)
[2022-02-12 19:40] VITALS: BP 116/57; PULSE 76; RESP 14; TEMP 37.1; O2SAT 97
[2022-02-12] MEDS: Atorvastatin Calcium 10 MG TABLET PO (19:57)
[2022-02-12] MEDS: Sertraline HCL 50 MG TABLET 150 MG PO (19:57)
[2022-02-13 06:00] VITALS: BP 122/68; PULSE 68; RESP 16; TEMP 37; O2SAT 96
[2022-02-13] MEDS: Levothyroxine Sodium 75 MCG TABLET PO (06:05)
[2022-02-13 07:00] VITALS: BMI 17.7
[2022-02-13] MEDS: Multivitamin TABLET 1 TAB PO (11:53)
[2022-02-13] MEDS: Bacitracin Oint 14 GM TUBE 1 APPL TOPICAL ×2 (11:53→20:50)
[2022-02-13] MEDS: calcium polycarbophiL TABLET 2 TAB PO (11:53)
[2022-02-13] MEDS: Memantine HCl 5 MG TABLET PO (11:53)
[2022-02-13] MEDS: Donepezil HCl 10 MG TABLET PO (11:53)
[2022-02-13] MEDS: Ferrous Sulfate 324 MG TABLET.DR PO (11:53)
--- NOTE | 2022-02-13 13:57 | P.PNPSI_ITS ---
Subjective Subjective Date of Service: 02/13/22 Reason For Visit: Change mental status/depression Subjective Notes: Conditional Voluntary Interim History: The nursing staff reported the patient was diagnosed with stage II decubitus ulcer in the coccyx area. He slept well. We talked with the social work faculty member and apparently the has been thinking of other options regarding disposition. On interview the patient denies new symptoms he has been sleeping profound in the morning but later he was awake and alert. His one-to-one observation for safety. Mental Status Exam Mental Status Exam Patient Appearance: Well Grooomed and Appropriate Patient Orientation: Person and Situation Level of Consciousness: Awake Patient Behavior: Guarded Mood Description: Calm Patient Cognition Impaired: Yes Ability to Follow Directions: Good Speech Pattern: Clear Hallucinations: None Delusions: Not Present Thought Process: Distracted Thought Content: positive for [place] Judgement: Fair Diagnostics Vital Signs (24Hr): Vital Signs - 24 hr 02/12/22 19:40 02/13/22 06:00 Temperature 98.8 F 98.6 F Pulse Rate 76 68 Respiratory Rate 14 16 Blood Pressure 116/57 L 122/68 Pulse Oximetry 97 96 Oxygen Delivery Method Room Air Room Air BMI result Body Mass Index 17.7 Labs Results: 02/03/22 10:53 02/11/22 12:20 Imaging Radiology Impressions: ITS Impressions Head CT 01/09/22 19:11 IMPRESSION: Moderate to large left scalp hematoma without calvarial fracture. No acute intracranial process seen. No left rib fracture abnormality seen. The lungs are clear Ribs X-Ray 01/09/22 19:17 IMPRESSION: Moderate to large left scalp hematoma without calvarial fracture. No acute intracranial process seen. No left rib fracture abnormality seen. The lungs are clear Head CT 02/10/22 15:03 IMPRESSION: No evidence of acute intracranial hemorrhage or edematous territorial infarction. Chest X-Ray 02/11/22 13:09 IMPRESSION: * No evidence of pneumonia. * There is likely a small hiatal hernia of the stomach. Medications Medications Current Medications Acetaminophen (Acetaminophen 325 Mg Tablet) 650 mg PO Q6H PRN PRN Reason: Headache/Pain Mild Scale (1-3) Last Admin: 02/11/22 09:37 Dose: 650 mg Acetaminophen (Acetaminophen 325 Mg Tablet) 650 mg PO ONCE PRN PRN Reason: Pain, Mild (Pain Scale 1-3) Al Hydroxide/Mg Hydroxide (Magnesium Hydrox/Alum Hydrox 30 Ml Oral.Susp) 30 ml PO Q6H PRN PRN Reason: Heartburn/Nausea Aripiprazole (Aripiprazole 5 Mg Tablet) 5 mg PO DAILY@1600 [facility] Last Admin: 02/12/22 17:14 Dose: 5 mg Atorvastatin Calcium (Atorvastatin Calcium 10 Mg Tablet) 10 mg PO BEDTIME [facility] [place] Last Admin: 02/12/22 19:57 Dose: 10 mg Bacitracin (Bacitracin Oint 14 Gm Tube) 1 appl TOPICAL BID [facility]; Protocol Last Admin: 02/13/22 11:53 Dose: 1 appl Calcium Polycarbophil (Calcium Polycarbophil Tablet) 2 tab PO DAILY [facility] [place] Last Admin: 02/13/22 11:53 Dose: 2 tab Donepezil HCl (Donepezil Hcl 10 Mg Tablet) 10 mg PO DAILY [facility] [place] Last Admin: 02/13/22 11:53 Dose: 10 mg Ferrous Sulfate (Ferrous Sulfate 324 Mg Tablet.Dr) 324 mg PO DAILY [facility] [place] Last Admin: 02/13/22 11:53 Dose: 324 mg Hydroxyzine HCl (Hydroxyzine Hcl 25 Mg Tablet) 25 mg PO BEDTIME PRN PRN Reason: Anxiety Last Admin: 02/06/22 21:48 Dose: 25 mg Levothyroxine Sodium (Levothyroxine Sodium 75 Mcg Tablet) 75 mcg PO DAILY@0630 [facility] [place] Last Admin: 02/13/22 06:05 Dose: 75 mcg Magnesium Hydroxide (Milk Of Magnesia 30 Ml Oral.Susp) 30 ml PO DAILY PRN PRN Reason: Constipation Last Admin: 01/28/22 15:36 Dose: 30 ml Memantine (Memantine Hcl 5 Mg Tablet) 5 mg PO DAILY [facility] [place] Last Admin: 02/13/22 11:53 Dose: 5 mg Multivitamins/Vitamin C (Multivitamin Tablet) 1 tab PO DAILY [facility] [place] Last Admin: 02/13/22 11:53 Dose: 1 tab Ondansetron HCl (Ondansetron Hcl 4 Mg/2 Ml Vial) 4 mg IVPUSH ONCE PRN PRN Reason: Nausea and Vomiting Pharmacy Consult (Consult Rx Perform Med Rec) 1 each MISCELLANE ONCE PRN PRN Reason: Consult order Sertraline HCl (Sertraline Hcl 50 Mg Tablet) 150 mg PO BEDTIME [facility] [place] Last Admin: 02/12/22 19:57 Dose: 150 mg Allergies Allergies Allergy/AdvReac Type Severity Reaction Status Date / Time No Known Allergies Allergy Verified 12/04/21 10:54 Assessment & Plan Assessment & Plan (1) Fall: Status: Acute Code(s): W19.XXXA - Unspecified fall, initial encounter (2) Left parietal scalp hematoma: Status: Acute Code(s): S00.03XA - Contusion of scalp, initial encounter Plan Call to assess patient home after a fall and a small left parietal hematoma Mechanical fall/small left parietal scalp hematoma Patient denies loss of consciousness is able to describe the event, offers no neurological symptoms of headache, dizziness, no nausea, no vomiting, no hip discomfort Head CT showed no acute intracranial bleed No further intervention recommended, Tylenol for pain Recommend PT eval Check Orthostatic blood pressure I spent ___20___ minutes with the patient and/or on the patient floor today, greater than?50% of which was spent counseling/coordinating care. Reason for contiued inpatient stay Substantial Risk for: inability to function, rapid decompensation and med/psych decompensation
[2022-02-13] MEDS: ARIPiprazole 5 MG TABLET PO (17:12)
[2022-02-13 18:00] VITALS: BP 112/56; PULSE 65; TEMP 37.4; O2SAT 95
[2022-02-13] MEDS: Sertraline HCL 50 MG TABLET 150 MG PO (20:50)
[2022-02-13] MEDS: Atorvastatin Calcium 10 MG TABLET PO (20:50)
[2022-02-14 06:00] VITALS: BP 131/59; PULSE 58; RESP 16; TEMP 36.8; O2SAT 95
[2022-02-14] MEDS: Levothyroxine Sodium 75 MCG TABLET PO (06:09)
[2022-02-14] MEDS: Ferrous Sulfate 324 MG TABLET.DR PO (11:35)
[2022-02-14] MEDS: calcium polycarbophiL TABLET 2 TAB PO (11:35)
[2022-02-14] MEDS: Memantine HCl 5 MG TABLET PO (11:35)
[2022-02-14] MEDS: Multivitamin TABLET 1 TAB PO (11:35)
[2022-02-14] MEDS: Bacitracin Oint 14 GM TUBE 1 APPL TOPICAL ×2 (11:35→23:40)
[2022-02-14] MEDS: Donepezil HCl 10 MG TABLET PO (11:35)
--- NOTE | 2022-02-14 14:15 | HO.PSYCHPN ---
Subjective Subjective Date of Service: 02/14/22 Reason For Visit: Change mental status/depression Subjective Notes: Conditional Voluntary Interim History: The nursing staff reported the patient has been cooperative and pleasant with care, he looks more active still confused at times. On interview the patient denies new symptoms. We change the level of observation to 50 minute checks with equipment at night. Mental Status Exam Mental Status Exam Patient Appearance: Well Grooomed Patient Orientation: Person and Situation Level of Consciousness: Awake Patient Behavior: Cooperative Mood Description: Calm Affect Description: Constricted Patient Cognition Impaired: Yes Ability to Follow Directions: Good Speech Pattern: Clear Hallucinations: None Delusions: Not Present Thought Process: Distracted Thought Content: positive for [place] and positive for Poverty of Content Judgement: Fair Diagnostics Vital Signs (24Hr): Vital Signs - 24 hr 02/13/22 18:00 02/14/22 06:00 Temperature 99.3 F 98.3 F Pulse Rate 65 58 Respiratory Rate 16 Blood Pressure 112/56 L 131/59 L Pulse Oximetry 95 95 Oxygen Delivery Method Room Air Room Air BMI result Body Mass Index 17.7 Labs Results: 02/03/22 10:53 02/11/22 12:20 Imaging Radiology Impressions: ITS Impressions Head CT 01/09/22 19:11 IMPRESSION: Moderate to large left scalp hematoma without calvarial fracture. No acute intracranial process seen. No left rib fracture abnormality seen. The lungs are clear Ribs X-Ray 01/09/22 19:17 IMPRESSION: Moderate to large left scalp hematoma without calvarial fracture. No acute intracranial process seen. No left rib fracture abnormality seen. The lungs are clear Head CT 02/10/22 15:03 IMPRESSION: No evidence of acute intracranial hemorrhage or edematous territorial infarction. Chest X-Ray 02/11/22 13:09 IMPRESSION: * No evidence of pneumonia. * There is likely a small hiatal hernia of the stomach. Medications Medications Current Medications Acetaminophen (Acetaminophen 325 Mg Tablet) 650 mg PO Q6H PRN PRN Reason: Headache/Pain Mild Scale (1-3) Last Admin: 02/11/22 09:37 Dose: 650 mg Acetaminophen (Acetaminophen 325 Mg Tablet) 650 mg PO ONCE PRN PRN Reason: Pain, Mild (Pain Scale 1-3) Al Hydroxide/Mg Hydroxide (Magnesium Hydrox/Alum Hydrox 30 Ml Oral.Susp) 30 ml PO Q6H PRN PRN Reason: Heartburn/Nausea Aripiprazole (Aripiprazole 5 Mg Tablet) 5 mg PO DAILY@1600 [facility] Last Admin: 02/13/22 17:12 Dose: 5 mg Atorvastatin Calcium (Atorvastatin Calcium 10 Mg Tablet) 10 mg PO BEDTIME [facility] Last Admin: 02/13/22 20:50 Dose: 10 mg Bacitracin (Bacitracin Oint 14 Gm Tube) 1 appl TOPICAL BID [facility]; Protocol Last Admin: 02/14/22 11:35 Dose: 1 appl Calcium Polycarbophil (Calcium Polycarbophil Tablet) 2 tab PO DAILY [facility] Last Admin: 02/14/22 11:35 Dose: 2 tab Donepezil HCl (Donepezil Hcl 10 Mg Tablet) 10 mg PO DAILY [facility] Last Admin: 02/14/22 11:35 Dose: 10 mg Ferrous Sulfate (Ferrous Sulfate 324 Mg Tablet.Dr) 324 mg PO DAILY [facility] Last Admin: 02/14/22 11:35 Dose: 324 mg Hydroxyzine HCl (Hydroxyzine Hcl 25 Mg Tablet) 25 mg PO BEDTIME PRN PRN Reason: Anxiety Last Admin: 02/06/22 21:48 Dose: 25 mg Levothyroxine Sodium (Levothyroxine Sodium 75 Mcg Tablet) 75 mcg PO DAILY@0630 [facility] Last Admin: 02/14/22 06:09 Dose: 75 mcg Magnesium Hydroxide (Milk Of Magnesia 30 Ml Oral.Susp) 30 ml PO DAILY PRN PRN Reason: Constipation Last Admin: 01/28/22 15:36 Dose: 30 ml Memantine (Memantine Hcl 5 Mg Tablet) 5 mg PO DAILY [facility] Last Admin: 02/14/22 11:35 Dose: 5 mg Multivitamins/Vitamin C (Multivitamin Tablet) 1 tab PO DAILY [facility] Last Admin: 02/14/22 11:35 Dose: 1 tab Ondansetron HCl (Ondansetron Hcl 4 Mg/2 Ml Vial) 4 mg IVPUSH ONCE PRN PRN Reason: Nausea and Vomiting Pharmacy Consult (Consult Rx Perform Med Rec) 1 each MISCELLANE ONCE PRN PRN Reason: Consult order Sertraline HCl (Sertraline Hcl 50 Mg Tablet) 150 mg PO BEDTIME [facility] Last Admin: 02/13/22 20:50 Dose: 150 mg Allergies Allergies Allergy/AdvReac Type Severity Reaction Status Date / Time No Known Allergies Allergy Verified 12/04/21 10:54 Assessment & Plan Assessment & Plan (1) Fall: Status: Acute Code(s): W19.XXXA - Unspecified fall, initial encounter (2) Left parietal scalp hematoma: Status: Acute Code(s): S00.03XA - Contusion of scalp, initial encounter Plan Call to assess patient home after a fall and a small left parietal hematoma Mechanical fall/small left parietal scalp hematoma Patient denies loss of consciousness is able to describe the event, offers no neurological symptoms of headache, dizziness, no nausea, no vomiting, no hip discomfort Head CT showed no acute intracranial bleed No further intervention recommended, Tylenol for pain Recommend PT eval Check Orthostatic blood pressure I spent ___20___ minutes with the patient and/or on the patient floor today, greater than?50% of which was spent counseling/coordinating care. Reason for contiued inpatient stay Substantial Risk for: inability to function, rapid decompensation and med/psych decompensation
[2022-02-14] MEDS: ARIPiprazole 5 MG TABLET PO (16:53)
--- NOTE | 2022-02-14 17:00 | PC.NURSE ---
The pt was calm and cooperative today, has 1:1 present for safety. Pt is alert and oriented to self only at this time, pleasantly confused otherwise. An air mattress was obtained to protect skin integrity. Pt repositioned [id number] while in bed. Barrier cream applied to coccyx area.
[2022-02-14 18:00] VITALS: BP 101/54; PULSE 69; TEMP 36.7; O2SAT 96
[2022-02-14] MEDS: Sertraline HCL 50 MG TABLET 150 MG PO (20:43)
[2022-02-14] MEDS: Atorvastatin Calcium 10 MG TABLET PO (20:43)
[2022-02-14 22:00] VITALS: O2SAT 98
[2022-02-15 06:00] VITALS: BP 126/62; PULSE 64; TEMP 36.6; O2SAT 97
[2022-02-15] MEDS: Levothyroxine Sodium 75 MCG TABLET PO (06:19)
[2022-02-15] MEDS: Multivitamin TABLET 1 TAB PO (09:03)
[2022-02-15] MEDS: calcium polycarbophiL TABLET 2 TAB PO (09:03)
[2022-02-15] MEDS: Memantine HCl 5 MG TABLET PO (09:04)
[2022-02-15] MEDS: Donepezil HCl 10 MG TABLET PO (09:04)
[2022-02-15] MEDS: Ferrous Sulfate 324 MG TABLET.DR PO (09:04)
--- NOTE | 2022-02-15 10:10 | HO.PSYCHPN ---
Subjective Subjective Date of Service: 02/15/22 Reason For Visit: Change mental status/depression Subjective Notes: Conditional Voluntary Interim History: The nursing staff reported the patient slept intermittent he is confused at times mostly in the evening. On interview the patient denies new symptoms he looks pleasant and cooperative. Mental Status Exam Mental Status Exam Patient Appearance: Well Grooomed Patient Orientation: Person and Situation Level of Consciousness: Awake Patient Behavior: Cooperative Mood Description: Withdrawn Affect Description: Constricted Patient Cognition Impaired: Yes Ability to Follow Directions: Good Speech Pattern: Clear Hallucinations: None Delusions: Not Present Thought Process: Distracted Thought Content: positive for [place] Judgement: Fair Diagnostics Vital Signs (24Hr): Vital Signs - 24 hr 02/14/22 22:00 02/14/22 18:00 02/15/22 06:00 Temperature 98.0 F 97.8 F Pulse Rate 69 64 Blood Pressure 101/54 L 126/62 Pulse Oximetry 98 96 97 Oxygen Delivery Method Room Air Room Air Room Air BMI result Body Mass Index 17.7 Labs Results: 02/03/22 10:53 02/11/22 12:20 Imaging Radiology Impressions: ITS Impressions Head CT 01/09/22 19:11 IMPRESSION: Moderate to large left scalp hematoma without calvarial fracture. No acute intracranial process seen. No left rib fracture abnormality seen. The lungs are clear Ribs X-Ray 01/09/22 19:17 IMPRESSION: Moderate to large left scalp hematoma without calvarial fracture. No acute intracranial process seen. No left rib fracture abnormality seen. The lungs are clear Head CT 02/10/22 15:03 IMPRESSION: No evidence of acute intracranial hemorrhage or edematous territorial infarction. Chest X-Ray 02/11/22 13:09 IMPRESSION: * No evidence of pneumonia. * There is likely a small hiatal hernia of the stomach. Medications Medications Current Medications Acetaminophen (Acetaminophen 325 Mg Tablet) 650 mg PO Q6H PRN PRN Reason: Headache/Pain Mild Scale (1-3) Last Admin: 02/11/22 09:37 Dose: 650 mg Acetaminophen (Acetaminophen 325 Mg Tablet) 650 mg PO ONCE PRN PRN Reason: Pain, Mild (Pain Scale 1-3) Al Hydroxide/Mg Hydroxide (Magnesium Hydrox/Alum Hydrox 30 Ml Oral.Susp) 30 ml PO Q6H PRN PRN Reason: Heartburn/Nausea Aripiprazole (Aripiprazole 5 Mg Tablet) 5 mg PO DAILY@1600 [facility] Last Admin: 02/14/22 16:53 Dose: 5 mg Atorvastatin Calcium (Atorvastatin Calcium 10 Mg Tablet) 10 mg PO BEDTIME [facility] Last Admin: 02/14/22 20:43 Dose: 10 mg Bacitracin (Bacitracin Oint 14 Gm Tube) 1 appl TOPICAL BID [facility]; Protocol Last Admin: 02/14/22 23:40 Dose: 1 appl Calcium Polycarbophil (Calcium Polycarbophil Tablet) 2 tab PO DAILY [facility] Last Admin: 02/15/22 09:03 Dose: 2 tab Donepezil HCl (Donepezil Hcl 10 Mg Tablet) 10 mg PO DAILY [facility] Last Admin: 02/15/22 09:04 Dose: 10 mg Ferrous Sulfate (Ferrous Sulfate 324 Mg Tablet.Dr) 324 mg PO DAILY [facility] Last Admin: 02/15/22 09:04 Dose: 324 mg Hydroxyzine HCl (Hydroxyzine Hcl 25 Mg Tablet) 25 mg PO BEDTIME PRN PRN Reason: Anxiety Last Admin: 02/06/22 21:48 Dose: 25 mg Levothyroxine Sodium (Levothyroxine Sodium 75 Mcg Tablet) 75 mcg PO DAILY@0630 [facility] Last Admin: 02/15/22 06:19 Dose: 75 mcg Magnesium Hydroxide (Milk Of Magnesia 30 Ml Oral.Susp) 30 ml PO DAILY PRN PRN Reason: Constipation Last Admin: 01/28/22 15:36 Dose: 30 ml Memantine (Memantine Hcl 5 Mg Tablet) 5 mg PO DAILY [facility] Last Admin: 02/15/22 09:04 Dose: 5 mg Multivitamins/Vitamin C (Multivitamin Tablet) 1 tab PO DAILY [facility] Last Admin: 02/15/22 09:03 Dose: 1 tab Ondansetron HCl (Ondansetron Hcl 4 Mg/2 Ml Vial) 4 mg IVPUSH ONCE PRN PRN Reason: Nausea and Vomiting Pharmacy Consult (Consult Rx Perform Med Rec) 1 each MISCELLANE ONCE PRN PRN Reason: Consult order Sertraline HCl (Sertraline Hcl 50 Mg Tablet) 150 mg PO BEDTIME [facility] Last Admin: 02/14/22 20:43 Dose: 150 mg Allergies Allergies Allergy/AdvReac Type Severity Reaction Status Date / Time No Known Allergies Allergy Verified 12/04/21 10:54 Assessment & Plan Assessment & Plan (1) Fall: Status: Acute Code(s): W19.XXXA - Unspecified fall, initial encounter (2) Left parietal scalp hematoma: Status: Acute Code(s): S00.03XA - Contusion of scalp, initial encounter Plan Call to assess patient home after a fall and a small left parietal hematoma Mechanical fall/small left parietal scalp hematoma Patient denies loss of consciousness is able to describe the event, offers no neurological symptoms of headache, dizziness, no nausea, no vomiting, no hip discomfort Head CT showed no acute intracranial bleed No further intervention recommended, Tylenol for pain Recommend PT eval Check Orthostatic blood pressure I spent ___20___ minutes with the patient and/or on the patient floor today, greater than?50% of which was spent counseling/coordinating care. Reason for contiued inpatient stay Substantial Risk for: inability to function, rapid decompensation and med/psych decompensation
[2022-02-15] MEDS: Bacitracin Oint 14 GM TUBE 1 APPL TOPICAL ×2 (11:45→20:34)
[2022-02-15] MEDS: ARIPiprazole 5 MG TABLET PO (17:01)
--- NOTE | 2022-02-15 18:09 | PC.NURSE ---
Patient visible on unit for meals and for extended periods following meals. Interacts minimally with peers however is appropriate and cooperative and displays sense of humor at times. Patient reports safe on iunit. Visit from this evening during which she stated, I know I can't take care of him at home.
[2022-02-15 19:50] VITALS: BP 108/57; PULSE 74; RESP 16; TEMP 36.5; O2SAT 97
[2022-02-15] MEDS: Sertraline HCL 50 MG TABLET 150 MG PO (20:33)
[2022-02-15] MEDS: Atorvastatin Calcium 10 MG TABLET PO (20:35)
[2022-02-16 06:00] VITALS: BP 113/62; PULSE 66; RESP 16; TEMP 36.4; O2SAT 96
[2022-02-16] MEDS: Levothyroxine Sodium 75 MCG TABLET PO (06:18)
[2022-02-16] MEDS: Ferrous Sulfate 324 MG TABLET.DR PO (08:45)
[2022-02-16] MEDS: Multivitamin TABLET 1 TAB PO (08:45)
[2022-02-16] MEDS: calcium polycarbophiL TABLET 2 TAB PO (08:45)
[2022-02-16] MEDS: Donepezil HCl 10 MG TABLET PO (08:45)
[2022-02-16] MEDS: Memantine HCl 5 MG TABLET PO (08:46)
--- NOTE | 2022-02-16 11:06 | HO.PSYCHPN ---
Subjective Subjective Date of Service: 02/16/22 Reason For Visit: Change mental status/depression Subjective Notes: Conditional Voluntary Interim History: The nursing staff reported the patient has been doing fine. Her called and now she is accepting the possibility that he needs placement for long-term since the patient needs a lot of help on his regular ADL is. On interview the patient is pleasant and cooperative with a brighter range of affect. Mental Status Exam Mental Status Exam Patient Appearance: Well Grooomed Patient Orientation: Person and Situation Level of Consciousness: Awake Patient Behavior: Cooperative Mood Description: Withdrawn Affect Description: Constricted Patient Cognition Impaired: Yes Ability to Follow Directions: Good Speech Pattern: Clear Hallucinations: None Delusions: Not Present Thought Process: Distracted Thought Content: positive for [place] and positive for Poverty of Content Judgement: Fair Diagnostics Vital Signs (24Hr): Vital Signs - 24 hr 02/15/22 19:50 02/16/22 06:00 Temperature 97.7 F 97.6 F Pulse Rate 74 66 Respiratory Rate 16 16 Blood Pressure 108/57 L 113/62 Pulse Oximetry 97 96 Oxygen Delivery Method Room Air Room Air BMI result Body Mass Index 17.7 Labs Results: 02/03/22 10:53 02/11/22 12:20 Imaging Radiology Impressions: ITS Impressions Head CT 01/09/22 19:11 IMPRESSION: Moderate to large left scalp hematoma without calvarial fracture. No acute intracranial process seen. No left rib fracture abnormality seen. The lungs are clear Ribs X-Ray 01/09/22 19:17 IMPRESSION: Moderate to large left scalp hematoma without calvarial fracture. No acute intracranial process seen. No left rib fracture abnormality seen. The lungs are clear Head CT 02/10/22 15:03 IMPRESSION: No evidence of acute intracranial hemorrhage or edematous territorial infarction. Chest X-Ray 02/11/22 13:09 IMPRESSION: * No evidence of pneumonia. * There is likely a small hiatal hernia of the stomach. Medications Medications Current Medications Acetaminophen (Acetaminophen 325 Mg Tablet) 650 mg PO Q6H PRN PRN Reason: Headache/Pain Mild Scale (1-3) Last Admin: 02/11/22 09:37 Dose: 650 mg Acetaminophen (Acetaminophen 325 Mg Tablet) 650 mg PO ONCE PRN PRN Reason: Pain, Mild (Pain Scale 1-3) Al Hydroxide/Mg Hydroxide (Magnesium Hydrox/Alum Hydrox 30 Ml Oral.Susp) 30 ml PO Q6H PRN PRN Reason: Heartburn/Nausea Aripiprazole (Aripiprazole 5 Mg Tablet) 5 mg PO DAILY@1600 [facility] Last Admin: 02/15/22 17:01 Dose: 5 mg Atorvastatin Calcium (Atorvastatin Calcium 10 Mg Tablet) 10 mg PO BEDTIME [facility] Last Admin: 02/15/22 20:35 Dose: 10 mg Bacitracin (Bacitracin Oint 14 Gm Tube) 1 appl TOPICAL BID [facility]; Protocol Last Admin: 02/15/22 20:34 Dose: 1 appl Calcium Polycarbophil (Calcium Polycarbophil Tablet) 2 tab PO DAILY [facility] Last Admin: 02/16/22 08:45 Dose: 2 tab Donepezil HCl (Donepezil Hcl 10 Mg Tablet) 10 mg PO DAILY [facility] Last Admin: 02/16/22 08:45 Dose: 10 mg Ferrous Sulfate (Ferrous Sulfate 324 Mg Tablet.Dr) 324 mg PO DAILY [facility] Last Admin: 02/16/22 08:45 Dose: 324 mg Hydroxyzine HCl (Hydroxyzine Hcl 25 Mg Tablet) 25 mg PO BEDTIME PRN PRN Reason: Anxiety Last Admin: 02/06/22 21:48 Dose: 25 mg Levothyroxine Sodium (Levothyroxine Sodium 75 Mcg Tablet) 75 mcg PO DAILY@0630 [facility] Last Admin: 02/16/22 06:18 Dose: 75 mcg Magnesium Hydroxide (Milk Of Magnesia 30 Ml Oral.Susp) 30 ml PO DAILY PRN PRN Reason: Constipation Last Admin: 01/28/22 15:36 Dose: 30 ml Memantine (Memantine Hcl 5 Mg Tablet) 5 mg PO DAILY [facility] Last Admin: 02/16/22 08:46 Dose: 5 mg Multivitamins/Vitamin C (Multivitamin Tablet) 1 tab PO DAILY [facility] Last Admin: 02/16/22 08:45 Dose: 1 tab Ondansetron HCl (Ondansetron Hcl 4 Mg/2 Ml Vial) 4 mg IVPUSH ONCE PRN PRN Reason: Nausea and Vomiting Pharmacy Consult (Consult Rx Perform Med Rec) 1 each MISCELLANE ONCE PRN PRN Reason: Consult order Sertraline HCl (Sertraline Hcl 50 Mg Tablet) 150 mg PO BEDTIME [facility] Last Admin: 02/15/22 20:33 Dose: 150 mg Allergies Allergies Allergy/AdvReac Type Severity Reaction Status Date / Time No Known Allergies Allergy Verified 12/04/21 10:54 Assessment & Plan Assessment & Plan (1) Fall: Status: Acute Code(s): W19.XXXA - Unspecified fall, initial encounter (2) Left parietal scalp hematoma: Status: Acute Code(s): S00.03XA - Contusion of scalp, initial encounter Plan Call to assess patient home after a fall and a small left parietal hematoma Mechanical fall/small left parietal scalp hematoma Patient denies loss of consciousness is able to describe the event, offers no neurological symptoms of headache, dizziness, no nausea, no vomiting, no hip discomfort Head CT showed no acute intracranial bleed No further intervention recommended, Tylenol for pain Recommend PT eval Check Orthostatic blood pressure I spent ___20___ minutes with the patient and/or on the patient floor today, greater than?50% of which was spent counseling/coordinating care. Reason for contiued inpatient stay Substantial Risk for: inability to function, rapid decompensation and med/psych decompensation
[2022-02-16] MEDS: Bacitracin Oint 14 GM TUBE 1 APPL TOPICAL (17:16)
[2022-02-16] MEDS: ARIPiprazole 5 MG TABLET PO (17:16)
[2022-02-16 20:40] VITALS: BP 131/60; PULSE 58; RESP 16; TEMP 37
[2022-02-16] MEDS: Atorvastatin Calcium 10 MG TABLET PO (20:46)
[2022-02-16] MEDS: Sertraline HCL 50 MG TABLET 150 MG PO (20:47)
[2022-02-16] MEDS: hydrOXYzine HCL 25 MG TABLET PO (20:47)
[2022-02-17] MEDS: Levothyroxine Sodium 75 MCG TABLET PO (05:56)
[2022-02-17 08:30] VITALS: BP 150/65; PULSE 62; TEMP 37.1; O2SAT 95
[2022-02-17] MEDS: Multivitamin TABLET 1 TAB PO (08:32)
[2022-02-17] MEDS: Donepezil HCl 10 MG TABLET PO (08:32)
[2022-02-17] MEDS: calcium polycarbophiL TABLET 2 TAB PO (08:32)
[2022-02-17] MEDS: Memantine HCl 5 MG TABLET PO ×2 (08:32→20:50)
[2022-02-17] MEDS: Ferrous Sulfate 324 MG TABLET.DR PO (08:32)
[2022-02-17] MEDS: Bacitracin Oint 14 GM TUBE 1 APPL TOPICAL (08:35)
[2022-02-17 11:01] VITALS: BP 150/65; PULSE 62; O2SAT 95
--- NOTE | 2022-02-17 11:38 | HO.PSYCHPN ---
Subjective Subjective Date of Service: 02/17/22 Reason For Visit: Change mental status/depression Subjective Notes: Conditional Voluntary Interim History: The nursing staff reports the patient has been pleasant and cooperative, fully compliant with treatment. On interview the patient reports that he is doing better he looks slightly confused, tolerating fairly well Namenda, we discussed options and he agreed to increase the Namenda to b.i.d.. Mental Status Exam Mental Status Exam Patient Appearance: Well Grooomed and Appropriate Patient Orientation: Person and Situation Level of Consciousness: Awake Patient Behavior: Cooperative and Passive Mood Description: Withdrawn Affect Description: Constricted Patient Cognition Impaired: Yes Ability to Follow Directions: Good Speech Pattern: Clear Hallucinations: None Delusions: Not Present Thought Process: Distracted and Evasive Thought Content: positive for [place] and positive for Poverty of Content Judgement: Fair Diagnostics Vital Signs (24Hr): Vital Signs - 24 hr 02/16/22 20:40 02/17/22 08:30 02/17/22 11:01 Temperature 98.6 F 98.7 F Pulse Rate 58 62 62 Respiratory Rate 16 Blood Pressure 131/60 150/65 H 150/65 H Pulse Oximetry 95 95 BMI result Body Mass Index 17.7 Labs Results: 02/03/22 10:53 02/11/22 12:20 Imaging Radiology Impressions: ITS Impressions Head CT 01/09/22 19:11 IMPRESSION: Moderate to large left scalp hematoma without calvarial fracture. No acute intracranial process seen. No left rib fracture abnormality seen. The lungs are clear Ribs X-Ray 01/09/22 19:17 IMPRESSION: Moderate to large left scalp hematoma without calvarial fracture. No acute intracranial process seen. No left rib fracture abnormality seen. The lungs are clear Head CT 02/10/22 15:03 IMPRESSION: No evidence of acute intracranial hemorrhage or edematous territorial infarction. Chest X-Ray 02/11/22 13:09 IMPRESSION: * No evidence of pneumonia. * There is likely a small hiatal hernia of the stomach. Medications Medications Current Medications Acetaminophen (Acetaminophen 325 Mg Tablet) 650 mg PO Q6H PRN PRN Reason: Headache/Pain Mild Scale (1-3) Last Admin: 02/11/22 09:37 Dose: 650 mg Acetaminophen (Acetaminophen 325 Mg Tablet) 650 mg PO ONCE PRN PRN Reason: Pain, Mild (Pain Scale 1-3) Al Hydroxide/Mg Hydroxide (Magnesium Hydrox/Alum Hydrox 30 Ml Oral.Susp) 30 ml PO Q6H PRN PRN Reason: Heartburn/Nausea Aripiprazole (Aripiprazole 5 Mg Tablet) 5 mg PO DAILY@1600 [facility] Last Admin: 02/16/22 17:16 Dose: 5 mg Atorvastatin Calcium (Atorvastatin Calcium 10 Mg Tablet) 10 mg PO BEDTIME [facility] Last Admin: 02/16/22 20:46 Dose: 10 mg Bacitracin (Bacitracin Oint 14 Gm Tube) 1 appl TOPICAL BID [facility]; Protocol Last Admin: 02/17/22 08:35 Dose: 1 appl Calcium Polycarbophil (Calcium Polycarbophil Tablet) 2 tab PO DAILY [facility] Last Admin: 02/17/22 08:32 Dose: 2 tab Donepezil HCl (Donepezil Hcl 10 Mg Tablet) 10 mg PO DAILY [facility] Last Admin: 02/17/22 08:32 Dose: 10 mg Ferrous Sulfate (Ferrous Sulfate 324 Mg Tablet.Dr) 324 mg PO DAILY [facility] Last Admin: 02/17/22 08:32 Dose: 324 mg Hydroxyzine HCl (Hydroxyzine Hcl 25 Mg Tablet) 25 mg PO BEDTIME PRN PRN Reason: Anxiety Last Admin: 02/16/22 20:47 Dose: 25 mg Levothyroxine Sodium (Levothyroxine Sodium 75 Mcg Tablet) 75 mcg PO DAILY@0630 [facility] Last Admin: 02/17/22 05:56 Dose: 75 mcg Magnesium Hydroxide (Milk Of Magnesia 30 Ml Oral.Susp) 30 ml PO DAILY PRN PRN Reason: Constipation Last Admin: 01/28/22 15:36 Dose: 30 ml Memantine (Memantine Hcl 5 Mg Tablet) 5 mg PO DAILY [facility] Last Admin: 02/17/22 08:32 Dose: 5 mg Multivitamins/Vitamin C (Multivitamin Tablet) 1 tab PO DAILY [facility] Last Admin: 02/17/22 08:32 Dose: 1 tab Ondansetron HCl (Ondansetron Hcl 4 Mg/2 Ml Vial) 4 mg IVPUSH ONCE PRN PRN Reason: Nausea and Vomiting Pharmacy Consult (Consult Rx Perform Med Rec) 1 each MISCELLANE ONCE PRN PRN Reason: Consult order Sertraline HCl (Sertraline Hcl 50 Mg Tablet) 150 mg PO BEDTIME [facility] Last Admin: 02/16/22 20:47 Dose: 50 mg Allergies Allergies Allergy/AdvReac Type Severity Reaction Status Date / Time No Known Allergies Allergy Verified 12/04/21 10:54 Assessment & Plan Assessment & Plan (1) Fall: Status: Acute Code(s): W19.XXXA - Unspecified fall, initial encounter (2) Left parietal scalp hematoma: Status: Acute Code(s): S00.03XA - Contusion of scalp, initial encounter Plan Call to assess patient home after a fall and a small left parietal hematoma Mechanical fall/small left parietal scalp hematoma Patient denies loss of consciousness is able to describe the event, offers no neurological symptoms of headache, dizziness, no nausea, no vomiting, no hip discomfort Head CT showed no acute intracranial bleed No further intervention recommended, Tylenol for pain Recommend PT eval Check Orthostatic blood pressure Increase Namenda to 5 mg p.o. b.i.d. I spent __20____ minutes with the patient and/or on the patient floor today, greater than?50% of which was spent counseling/coordinating care. Reason for contiued inpatient stay Substantial Risk for: inability to function, rapid decompensation and med/psych decompensation
[2022-02-17 18:00] VITALS: BP 132/55; PULSE 72; RESP 16; TEMP 36.9; O2SAT 96
[2022-02-17] MEDS: ARIPiprazole 5 MG TABLET PO (18:08)
[2022-02-17] MEDS: hydrOXYzine HCL 25 MG TABLET PO (20:50)
[2022-02-17] MEDS: Atorvastatin Calcium 10 MG TABLET PO (20:50)
[2022-02-17] MEDS: Sertraline HCL 50 MG TABLET 150 MG PO (20:50)
[2022-02-18] MEDS: Levothyroxine Sodium 75 MCG TABLET PO (05:45)
[2022-02-18 08:25] VITALS: BP 138/64; PULSE 63; RESP 16; TEMP 36.7
[2022-02-18] MEDS: Multivitamin TABLET 1 TAB PO (09:46)
[2022-02-18] MEDS: Ferrous Sulfate 324 MG TABLET.DR PO (09:46)
[2022-02-18] MEDS: Donepezil HCl 10 MG TABLET PO (09:46)
[2022-02-18] MEDS: Memantine HCl 5 MG TABLET PO ×3 (09:46→20:33)
[2022-02-18] MEDS: calcium polycarbophiL TABLET 2 TAB PO (09:46)
--- NOTE | 2022-02-18 15:29 | P.PNPSI_ITS ---
Subjective Subjective Date of Service: 02/18/22 Reason For Visit: Change mental status/depression Subjective Notes: Conditional Voluntary Interim History: The nursing staff reported the patient has been fully compliant with treatment no evidence of depression. The clinical social work therapist reported that he even show sense of humor he has been eating very well. Over the weekend, his came into realization that probably she cannot take care of him. We will wait for placement Mental Status Exam Mental Status Exam Patient Appearance: Well Grooomed Patient Orientation: Person and Situation Level of Consciousness: Awake Patient Behavior: Cooperative Mood Description: Calm Affect Description: Constricted Patient Cognition Impaired: Yes Ability to Follow Directions: Good Speech Pattern: Clear Hallucinations: None Delusions: Not Present Thought Process: Distracted Thought Content: positive for [place] Judgement: Fair Diagnostics Vital Signs (24Hr): Vital Signs - 24 hr 02/17/22 18:00 02/18/22 08:25 Temperature 98.4 F 98.1 F Pulse Rate 72 63 Respiratory Rate 16 16 Blood Pressure 132/55 L 138/64 Pulse Oximetry 96 Oxygen Delivery Method Room Air BMI result Body Mass Index 17.7 Labs Results: 02/03/22 10:53 02/11/22 12:20 Imaging Radiology Impressions: ITS Impressions Head CT 01/09/22 19:11 IMPRESSION: Moderate to large left scalp hematoma without calvarial fracture. No acute intracranial process seen. No left rib fracture abnormality seen. The lungs are clear Ribs X-Ray 01/09/22 19:17 IMPRESSION: Moderate to large left scalp hematoma without calvarial fracture. No acute intracranial process seen. No left rib fracture abnormality seen. The lungs are clear Head CT 02/10/22 15:03 IMPRESSION: No evidence of acute intracranial hemorrhage or edematous territorial infarction. Chest X-Ray 02/11/22 13:09 IMPRESSION: * No evidence of pneumonia. * There is likely a small hiatal hernia of the stomach. Medications Medications Current Medications Acetaminophen (Acetaminophen 325 Mg Tablet) 650 mg PO Q6H PRN PRN Reason: Headache/Pain Mild Scale (1-3) Last Admin: 02/11/22 09:37 Dose: 650 mg Al Hydroxide/Mg Hydroxide (Magnesium Hydrox/Alum Hydrox 30 Ml Oral.Susp) 30 ml PO Q6H PRN PRN Reason: Heartburn/Nausea Aripiprazole (Aripiprazole 5 Mg Tablet) 5 mg PO DAILY@1600 [facility] Last Admin: 02/17/22 18:08 Dose: 5 mg Atorvastatin Calcium (Atorvastatin Calcium 10 Mg Tablet) 10 mg PO BEDTIME [facility] Last Admin: 02/17/22 20:50 Dose: 10 mg Bacitracin (Bacitracin Oint 14 Gm Tube) 1 appl TOPICAL BID [facility]; Protocol Last Admin: 02/18/22 09:50 Dose: Not Given Calcium Polycarbophil (Calcium Polycarbophil Tablet) 2 tab PO DAILY [facility] Last Admin: 02/18/22 09:46 Dose: 2 tab Donepezil HCl (Donepezil Hcl 10 Mg Tablet) 10 mg PO DAILY [facility] Last Admin: 02/18/22 09:46 Dose: 10 mg Ferrous Sulfate (Ferrous Sulfate 324 Mg Tablet.Dr) 324 mg PO DAILY [facility] Last Admin: 02/18/22 09:46 Dose: 324 mg Hydroxyzine HCl (Hydroxyzine Hcl 25 Mg Tablet) 25 mg PO BEDTIME PRN PRN Reason: Anxiety Last Admin: 02/17/22 20:50 Dose: 25 mg Levothyroxine Sodium (Levothyroxine Sodium 75 Mcg Tablet) 75 mcg PO DAILY@0630 [facility] Last Admin: 02/18/22 05:45 Dose: 75 mcg Magnesium Hydroxide (Milk Of Magnesia 30 Ml Oral.Susp) 30 ml PO DAILY PRN PRN Reason: Constipation Last Admin: 01/28/22 15:36 Dose: 30 ml Memantine (Memantine Hcl 5 Mg Tablet) 5 mg PO BID [facility] Last Admin: 02/18/22 09:49 Dose: 5 mg Multivitamins/Vitamin C (Multivitamin Tablet) 1 tab PO DAILY [facility] Last Admin: 02/18/22 09:46 Dose: 1 tab Ondansetron HCl (Ondansetron Hcl 4 Mg/2 Ml Vial) 4 mg IVPUSH ONCE PRN PRN Reason: Nausea and Vomiting Pharmacy Consult (Consult Rx Perform Med Rec) 1 each MISCELLANE ONCE PRN PRN Reason: Consult order Sertraline HCl (Sertraline Hcl 50 Mg Tablet) 150 mg PO BEDTIME [facility] Last Admin: 02/17/22 20:50 Dose: 150 mg Allergies Allergies Allergy/AdvReac Type Severity Reaction Status Date / Time No Known Allergies Allergy Verified 12/04/21 10:54 Assessment & Plan Assessment & Plan (1) Fall: Status: Acute Code(s): W19.XXXA - Unspecified fall, initial encounter (2) Left parietal scalp hematoma: Status: Acute Code(s): S00.03XA - Contusion of scalp, initial encounter Plan Call to assess patient home after a fall and a small left parietal hematoma Mechanical fall/small left parietal scalp hematoma Patient denies loss of consciousness is able to describe the event, offers no neurological symptoms of headache, dizziness, no nausea, no vomiting, no hip discomfort Head CT showed no acute intracranial bleed No further intervention recommended, Tylenol for pain Recommend PT eval Check Orthostatic blood pressure Increase Namenda to 5 mg p.o. b.i.d. I spent ____20__ minutes with the patient and/or on the patient floor today, greater than?50% of which was spent counseling/coordinating care. Reason for contiued inpatient stay Substantial Risk for: inability to function, rapid decompensation and med/psych decompensation
[2022-02-18] MEDS: ARIPiprazole 5 MG TABLET PO (16:53)
[2022-02-18 18:00] VITALS: BP 106/46; PULSE 74; RESP 15; TEMP 36.9; O2SAT 97
[2022-02-18] MEDS: Sertraline HCL 50 MG TABLET 150 MG PO (20:32)
[2022-02-18] MEDS: Atorvastatin Calcium 10 MG TABLET PO (20:32)
[2022-02-19] MEDS: Levothyroxine Sodium 75 MCG TABLET PO (05:52)
[2022-02-19 07:00] VITALS: BP 137/61; PULSE 61; RESP 16; TEMP 36.9; O2SAT 96
[2022-02-19] MEDS: Multivitamin TABLET 1 TAB PO (09:11)
[2022-02-19] MEDS: Ferrous Sulfate 324 MG TABLET.DR PO (09:11)
[2022-02-19] MEDS: calcium polycarbophiL TABLET 2 TAB PO (09:11)
[2022-02-19] MEDS: Donepezil HCl 10 MG TABLET PO (09:11)
[2022-02-19] MEDS: Memantine HCl 5 MG TABLET PO ×2 (09:11→19:46)
--- NOTE | 2022-02-19 12:01 | HO.PSYCHPN ---
Subjective Subjective Date of Service: 02/19/22 Reason For Visit: Change mental status/depression Subjective Notes: Conditional Voluntary Interim History: Nursing staff reports the patient has been cheerful with a good sense of humor, able to participate in all the groups. On interview the patient denies new symptoms. The social science research assistant reported that she has spoken with the and they were unsure about discharge planning. Mental Status Exam Mental Status Exam Patient Appearance: Well Grooomed and Appropriate Patient Orientation: Person and Situation Level of Consciousness: Awake Patient Behavior: Cooperative Mood Description: Calm Affect Description: Constricted Patient Cognition Impaired: Yes Ability to Follow Directions: Good Speech Pattern: Clear Hallucinations: None Delusions: Not Present Thought Process: Linear Thought Content: positive for [place] and positive for Circumstantial Judgement: Fair Diagnostics Vital Signs (24Hr): Vital Signs - 24 hr 02/18/22 18:00 02/19/22 07:00 Temperature 98.4 F 98.4 F Pulse Rate 74 61 Respiratory Rate 15 16 Blood Pressure 106/46 L 137/61 Pulse Oximetry 97 96 Oxygen Delivery Method Room Air Room Air BMI result Body Mass Index 17.7 Labs Results: 02/03/22 10:53 02/11/22 12:20 Imaging Radiology Impressions: ITS Impressions Head CT 01/09/22 19:11 IMPRESSION: Moderate to large left scalp hematoma without calvarial fracture. No acute intracranial process seen. No left rib fracture abnormality seen. The lungs are clear Ribs X-Ray 01/09/22 19:17 IMPRESSION: Moderate to large left scalp hematoma without calvarial fracture. No acute intracranial process seen. No left rib fracture abnormality seen. The lungs are clear Head CT 02/10/22 15:03 IMPRESSION: No evidence of acute intracranial hemorrhage or edematous territorial infarction. Chest X-Ray 02/11/22 13:09 IMPRESSION: * No evidence of pneumonia. * There is likely a small hiatal hernia of the stomach. Medications Medications Current Medications Acetaminophen (Acetaminophen 325 Mg Tablet) 650 mg PO Q6H PRN PRN Reason: Headache/Pain Mild Scale (1-3) Last Admin: 02/11/22 09:37 Dose: 650 mg Al Hydroxide/Mg Hydroxide (Magnesium Hydrox/Alum Hydrox 30 Ml Oral.Susp) 30 ml PO Q6H PRN PRN Reason: Heartburn/Nausea Aripiprazole (Aripiprazole 5 Mg Tablet) 5 mg PO DAILY@1600 [facility] Last Admin: 02/18/22 16:53 Dose: 5 mg Atorvastatin Calcium (Atorvastatin Calcium 10 Mg Tablet) 10 mg PO BEDTIME [facility] [place] Last Admin: 02/18/22 20:32 Dose: 10 mg Bacitracin (Bacitracin Oint 14 Gm Tube) 1 appl TOPICAL BID [facility] [place]; Protocol Last Admin: 02/19/22 09:11 Dose: Not Given Calcium Polycarbophil (Calcium Polycarbophil Tablet) 2 tab PO DAILY [facility] [place] Last Admin: 02/19/22 09:11 Dose: 2 tab Donepezil HCl (Donepezil Hcl 10 Mg Tablet) 10 mg PO DAILY [facility] [place] Last Admin: 02/19/22 09:11 Dose: 10 mg Ferrous Sulfate (Ferrous Sulfate 324 Mg Tablet.Dr) 324 mg PO DAILY [facility] [place] Last Admin: 02/19/22 09:11 Dose: 324 mg Hydroxyzine HCl (Hydroxyzine Hcl 25 Mg Tablet) 25 mg PO BEDTIME PRN PRN Reason: Anxiety Last Admin: 02/17/22 20:50 Dose: 25 mg Levothyroxine Sodium (Levothyroxine Sodium 75 Mcg Tablet) 75 mcg PO DAILY@0630 [facility] [place] Last Admin: 02/19/22 05:52 Dose: 75 mcg Magnesium Hydroxide (Milk Of Magnesia 30 Ml Oral.Susp) 30 ml PO DAILY PRN PRN Reason: Constipation Last Admin: 01/28/22 15:36 Dose: 30 ml Memantine (Memantine Hcl 5 Mg Tablet) 5 mg PO BID [facility] [place] Last Admin: 02/19/22 09:11 Dose: 5 mg Multivitamins/Vitamin C (Multivitamin Tablet) 1 tab PO DAILY [facility] [place] Last Admin: 02/19/22 09:11 Dose: 1 tab Ondansetron HCl (Ondansetron Hcl 4 Mg/2 Ml Vial) 4 mg IVPUSH ONCE PRN PRN Reason: Nausea and Vomiting Pharmacy Consult (Consult Rx Perform Med Rec) 1 each MISCELLANE ONCE PRN PRN Reason: Consult order Sertraline HCl (Sertraline Hcl 50 Mg Tablet) 150 mg PO BEDTIME [facility] [place] Last Admin: 02/18/22 20:32 Dose: 150 mg Allergies Allergies Allergy/AdvReac Type Severity Reaction Status Date / Time No Known Allergies Allergy Verified 12/04/21 10:54 Assessment & Plan Assessment & Plan (1) Fall: Status: Acute Code(s): W19.XXXA - Unspecified fall, initial encounter (2) Left parietal scalp hematoma: Status: Acute Code(s): S00.03XA - Contusion of scalp, initial encounter Plan Call to assess patient home after a fall and a small left parietal hematoma Mechanical fall/small left parietal scalp hematoma Patient denies loss of consciousness is able to describe the event, offers no neurological symptoms of headache, dizziness, no nausea, no vomiting, no hip discomfort Head CT showed no acute intracranial bleed No further intervention recommended, Tylenol for pain Recommend PT eval Check Orthostatic blood pressure Increase Namenda to 5 mg p.o. b.i.d. I spent ___20___ minutes with the patient and/or on the patient floor today, greater than?50% of which was spent counseling/coordinating care. Reason for contiued inpatient stay Substantial Risk for: inability to function, rapid decompensation and med/psych decompensation
[2022-02-19] MEDS: ARIPiprazole 5 MG TABLET PO (16:48)
[2022-02-19 19:30] VITALS: BP 112/53; PULSE 75; TEMP 36.8; O2SAT 98
[2022-02-19] MEDS: Sertraline HCL 50 MG TABLET 150 MG PO (19:46)
[2022-02-19] MEDS: Atorvastatin Calcium 10 MG TABLET PO (19:46)
[2022-02-19] MEDS: Bacitracin Oint 14 GM TUBE 1 APPL TOPICAL (19:46)
[2022-02-20] MEDS: Levothyroxine Sodium 75 MCG TABLET PO (05:05)
[2022-02-20 06:00] VITALS: BP 133/66; PULSE 63; RESP 17; TEMP 36.9; O2SAT 96
[2022-02-20 07:00] VITALS: BMI 18.1
[2022-02-20] MEDS: Donepezil HCl 10 MG TABLET PO (09:57)
[2022-02-20] MEDS: Multivitamin TABLET 1 TAB PO (09:57)
[2022-02-20] MEDS: calcium polycarbophiL TABLET 2 TAB PO (09:57)
[2022-02-20] MEDS: Memantine HCl 5 MG TABLET PO ×2 (09:57→21:12)
[2022-02-20] MEDS: Ferrous Sulfate 324 MG TABLET.DR PO (09:57)
--- NOTE | 2022-02-20 10:03 | PC.NURSE ---
wound on left hand healed. no bacitracin needed
--- NOTE | 2022-02-20 11:07 | HO.PSYCHPN ---
Subjective Subjective Date of Service: 02/20/22 Reason For Visit: Change mental status/depression Subjective Notes: Conditional Voluntary Interim History: The nursing staff reported the patient has been med compliant, cooperative and pleasant. Today he woke up at 04:00 o'clock in the morning he was incontinent of urine and feces. Occupational therapy reported that he has court on the ACL 3.4. On interview the patient denies new symptoms, he looks content with the current treatment. Mental Status Exam Mental Status Exam Patient Appearance: Well Grooomed Patient Orientation: Person and Situation Level of Consciousness: Awake Patient Behavior: Cooperative Mood Description: Withdrawn Affect Description: Calm Patient Cognition Impaired: Yes Ability to Follow Directions: Good Speech Pattern: Clear Hallucinations: None Delusions: Not Present Thought Process: Confusion Thought Content: positive for [place] Judgement: Fair Diagnostics Vital Signs (24Hr): Vital Signs - 24 hr 02/19/22 19:30 02/20/22 06:00 Temperature 98.2 F 98.4 F Pulse Rate 75 63 Respiratory Rate 17 Blood Pressure 112/53 L 133/66 Pulse Oximetry 98 96 Oxygen Delivery Method Room Air Room Air BMI result Body Mass Index 17.7 Labs Results: 02/03/22 10:53 02/11/22 12:20 Imaging Radiology Impressions: ITS Impressions Head CT 01/09/22 19:11 IMPRESSION: Moderate to large left scalp hematoma without calvarial fracture. No acute intracranial process seen. No left rib fracture abnormality seen. The lungs are clear Ribs X-Ray 01/09/22 19:17 IMPRESSION: Moderate to large left scalp hematoma without calvarial fracture. No acute intracranial process seen. No left rib fracture abnormality seen. The lungs are clear Head CT 02/10/22 15:03 IMPRESSION: No evidence of acute intracranial hemorrhage or edematous territorial infarction. Chest X-Ray 02/11/22 13:09 IMPRESSION: * No evidence of pneumonia. * There is likely a small hiatal hernia of the stomach. Medications Medications Current Medications Acetaminophen (Acetaminophen 325 Mg Tablet) 650 mg PO Q6H PRN PRN Reason: Headache/Pain Mild Scale (1-3) Last Admin: 02/11/22 09:37 Dose: 650 mg Al Hydroxide/Mg Hydroxide (Magnesium Hydrox/Alum Hydrox 30 Ml Oral.Susp) 30 ml PO Q6H PRN PRN Reason: Heartburn/Nausea Aripiprazole (Aripiprazole 5 Mg Tablet) 5 mg PO DAILY@1600 [facility] Last Admin: 02/19/22 16:48 Dose: 5 mg Atorvastatin Calcium (Atorvastatin Calcium 10 Mg Tablet) 10 mg PO BEDTIME [facility] Last Admin: 02/19/22 19:46 Dose: 10 mg Bacitracin (Bacitracin Oint 14 Gm Tube) 1 appl TOPICAL BID [facility]; Protocol Last Admin: 02/20/22 10:02 Dose: Not Given Calcium Polycarbophil (Calcium Polycarbophil Tablet) 2 tab PO DAILY [facility] Last Admin: 02/20/22 09:57 Dose: 2 tab Donepezil HCl (Donepezil Hcl 10 Mg Tablet) 10 mg PO DAILY [facility] Last Admin: 02/20/22 09:57 Dose: 10 mg Ferrous Sulfate (Ferrous Sulfate 324 Mg Tablet.) 324 mg PO DAILY [facility] Last Admin: 02/20/22 09:57 Dose: 324 mg Hydroxyzine HCl (Hydroxyzine Hcl 25 Mg Tablet) 25 mg PO BEDTIME PRN PRN Reason: Anxiety Last Admin: 02/17/22 20:50 Dose: 25 mg Levothyroxine Sodium (Levothyroxine Sodium 75 Mcg Tablet) 75 mcg PO DAILY@0630 [facility] Last Admin: 02/20/22 05:05 Dose: 75 mcg Magnesium Hydroxide (Milk Of Magnesia 30 Ml Oral.Susp) 30 ml PO DAILY PRN PRN Reason: Constipation Last Admin: 01/28/22 15:36 Dose: 30 ml Memantine (Memantine Hcl 5 Mg Tablet) 5 mg PO BID [facility] Last Admin: 02/20/22 09:57 Dose: 5 mg Multivitamins/Vitamin C (Multivitamin Tablet) 1 tab PO DAILY [facility] Last Admin: 02/20/22 09:57 Dose: 1 tab Ondansetron HCl (Ondansetron Hcl 4 Mg/2 Ml Vial) 4 mg IVPUSH ONCE PRN PRN Reason: Nausea and Vomiting Pharmacy Consult (Consult Rx Perform Med Rec) 1 each MISCELLANE ONCE PRN PRN Reason: Consult order Sertraline HCl (Sertraline Hcl 50 Mg Tablet) 150 mg PO BEDTIME [facility] Last Admin: 02/19/22 19:46 Dose: 150 mg Allergies Allergies Allergy/AdvReac Type Severity Reaction Status Date / Time No Known Allergies Allergy Verified 12/04/21 10:54 Assessment & Plan Assessment & Plan (1) Fall: Status: Acute Code(s): W19.XXXA - Unspecified fall, initial encounter (2) Left parietal scalp hematoma: Status: Acute Code(s): S00.03XA - Contusion of scalp, initial encounter Plan Call to assess patient home after a fall and a small left parietal hematoma Mechanical fall/small left parietal scalp hematoma Patient denies loss of consciousness is able to describe the event, offers no neurological symptoms of headache, dizziness, no nausea, no vomiting, no hip discomfort Head CT showed no acute intracranial bleed No further intervention recommended, Tylenol for pain Recommend PT eval Check Orthostatic blood pressure Increase Namenda to 5 mg p.o. b.i.d. I spent __20____ minutes with the patient and/or on the patient floor today, greater than?50% of which was spent counseling/coordinating care. Reason for contiued inpatient stay Substantial Risk for: inability to function, rapid decompensation and med/psych decompensation
--- NOTE | 2022-02-20 15:07 | MHC.OT.ID ---
[address] [phone] F: [phone] Occupational Therapy Inpatient Daily Note Start Time: End Time: Visit Duration: Billable Time: Pain Score: 0 Pain Location: Self-Care Feeding: Pt able to self feed, needs encouragement and verbal cueing to initiate, sustain, complete activity. Grooming: Min A Washing: Max A Dressing: Max A Toileting: MOD A Functional Mobility Bed Mobility: Mod A Transfers: Sit to stand transfer is close stand by due to balance deficits Ambulation: Intermittent need for contact guard assistance d/t loss of balance during ambulation. Pt lifts up 2WW and carries it rather than using it as a balance aide. Needs constant cueing for safe use of 2WW. Therapeutic Activities IADL/Homecare: Balance: Poor Therapeutic Exercise: Cognition: Pt scored a 3.4 on the [place] Cognitive Level Screen indicating the need for close supervision, placing ADL items in front of person, cueing through tasks. Indicates the need for 54% moderate cognitive assistance Assessment Assessment: Pt with delayed receptive processing, needs extra time to complete ADLs, requires Mod to Max assistance for BADLs. Pt will need ADL supports in place for successful discharge. Plan Plan of Care: D/C Today: Electronically Signed By: Elli Bailey OTR/L Reviewed/agree with student documentation: Therapist:
[2022-02-20] MEDS: ARIPiprazole 5 MG TABLET PO (15:49)
[2022-02-20 18:00] VITALS: BP 106/54; PULSE 67; RESP 16; TEMP 36.9; O2SAT 94
[2022-02-20] MEDS: hydrOXYzine HCL 25 MG TABLET PO (21:12)
[2022-02-20] MEDS: Sertraline HCL 50 MG TABLET 150 MG PO (21:12)
[2022-02-20] MEDS: Atorvastatin Calcium 10 MG TABLET PO (21:12)
[2022-02-21] MEDS: Levothyroxine Sodium 75 MCG TABLET PO (05:25)
[2022-02-21] MEDS: calcium polycarbophiL TABLET 2 TAB PO (08:06)
[2022-02-21] MEDS: Donepezil HCl 10 MG TABLET PO (08:06)
[2022-02-21] MEDS: Multivitamin TABLET 1 TAB PO (08:06)
[2022-02-21] MEDS: Memantine HCl 5 MG TABLET PO ×2 (08:07→20:22)
[2022-02-21] MEDS: Ferrous Sulfate 324 MG TABLET.DR PO (08:07)
[2022-02-21] MEDS: Bacitracin Oint 14 GM TUBE 1 APPL TOPICAL (08:10)
[2022-02-21 08:12] VITALS: BP 118/61; PULSE 57; RESP 14; TEMP 36.7; O2SAT 97
[2022-02-21 09:36] VITALS: BP 118/61; PULSE 57; O2SAT 97
--- NOTE | 2022-02-21 14:12 | HO.PSYCHPN ---
Subjective Subjective Date of Service: 02/21/22 Reason For Visit: Change mental status/depression Subjective Notes: Conditional Voluntary Interim History: The nursing staff reported the patient has been participating in groups he is pleasant and cooperative. On interview the patient denies new symptoms he feels much better. The social sciences lecturer contact his and apparently they are okay with that discharged to home with services. Mental Status Exam Mental Status Exam Patient Appearance: Well Grooomed Patient Orientation: Person and Situation Level of Consciousness: Awake Patient Behavior: Cooperative Mood Description: Calm Affect Description: Relaxed Patient Cognition Impaired: Yes Ability to Follow Directions: Good Speech Pattern: Clear Hallucinations: None Delusions: Not Present Thought Process: Linear Thought Content: positive for [place]um[place] Judgement: Fair Diagnostics Vital Signs (24Hr): Vital Signs - 24 hr 02/20/22 18:00 02/21/22 08:12 02/21/22 09:36 Temperature 98.4 F 98.1 F Pulse Rate 67 57 57 Respiratory Rate 16 14 Blood Pressure 106/54 L 118/61 118/61 Pulse Oximetry 94 97 97 Oxygen Delivery Method Room Air Room Air BMI result Body Mass Index 18.1 Labs Results: 02/03/22 10:53 02/11/22 12:20 Imaging Radiology Impressions: ITS Impressions Head CT 01/09/22 19:11 IMPRESSION: Moderate to large left scalp hematoma without calvarial fracture. No acute intracranial process seen. No left rib fracture abnormality seen. The lungs are clear Ribs X-Ray 01/09/22 19:17 IMPRESSION: Moderate to large left scalp hematoma without calvarial fracture. No acute intracranial process seen. No left rib fracture abnormality seen. The lungs are clear Head CT 02/10/22 15:03 IMPRESSION: No evidence of acute intracranial hemorrhage or edematous territorial infarction. Chest X-Ray 02/11/22 13:09 IMPRESSION: * No evidence of pneumonia. * There is likely a small hiatal hernia of the stomach. Medications Medications Current Medications Acetaminophen (Acetaminophen 325 Mg Tablet) 650 mg PO Q6H PRN PRN Reason: Headache/Pain Mild Scale (1-3) Last Admin: 02/11/22 09:37 Dose: 650 mg Al Hydroxide/Mg Hydroxide (Magnesium Hydrox/Alum Hydrox 30 Ml Oral.Susp) 30 ml PO Q6H PRN PRN Reason: Heartburn/Nausea Aripiprazole (Aripiprazole 5 Mg Tablet) 5 mg PO DAILY@1600 [facility] Last Admin: 02/20/22 15:49 Dose: 5 mg Atorvastatin Calcium (Atorvastatin Calcium 10 Mg Tablet) 10 mg PO BEDTIME [facility] Last Admin: 02/20/22 21:12 Dose: 10 mg Bacitracin (Bacitracin Oint 14 Gm Tube) 1 appl TOPICAL BID [facility]; Protocol Last Admin: 02/21/22 08:10 Dose: 1 appl Calcium Polycarbophil (Calcium Polycarbophil Tablet) 2 tab PO DAILY [facility] Last Admin: 02/21/22 08:06 Dose: 2 tab Donepezil HCl (Donepezil Hcl 10 Mg Tablet) 10 mg PO DAILY [facility] Last Admin: 02/21/22 08:06 Dose: 10 mg Ferrous Sulfate (Ferrous Sulfate 324 Mg Tablet.Dr) 324 mg PO DAILY [facility] Last Admin: 02/21/22 08:07 Dose: 324 mg Hydroxyzine HCl (Hydroxyzine Hcl 25 Mg Tablet) 25 mg PO BEDTIME PRN PRN Reason: Anxiety Last Admin: 02/20/22 21:12 Dose: 25 mg Levothyroxine Sodium (Levothyroxine Sodium 75 Mcg Tablet) 75 mcg PO DAILY@0630 [facility] Last Admin: 02/21/22 05:25 Dose: 75 mcg Magnesium Hydroxide (Milk Of Magnesia 30 Ml Oral.Susp) 30 ml PO DAILY PRN PRN Reason: Constipation Last Admin: 01/28/22 15:36 Dose: 30 ml Memantine (Memantine Hcl 5 Mg Tablet) 5 mg PO BID [facility] Last Admin: 02/21/22 08:07 Dose: 5 mg Multivitamins/Vitamin C (Multivitamin Tablet) 1 tab PO DAILY [facility] Last Admin: 02/21/22 08:06 Dose: 1 tab Ondansetron HCl (Ondansetron Hcl 4 Mg/2 Ml Vial) 4 mg IVPUSH ONCE PRN PRN Reason: Nausea and Vomiting Pharmacy Consult (Consult Rx Perform Med Rec) 1 each MISCELLANE ONCE PRN PRN Reason: Consult order Sertraline HCl (Sertraline Hcl 50 Mg Tablet) 150 mg PO BEDTIME [facility] Last Admin: 02/20/22 21:12 Dose: 150 mg Allergies Allergies Allergy/AdvReac Type Severity Reaction Status Date / Time No Known Allergies Allergy Verified 12/04/21 10:54 Assessment & Plan Assessment & Plan (1) Fall: Status: Acute Code(s): W19.XXXA - Unspecified fall, initial encounter (2) Left parietal scalp hematoma: Status: Acute Code(s): S00.03XA - Contusion of scalp, initial encounter Plan Call to assess patient home after a fall and a small left parietal hematoma Mechanical fall/small left parietal scalp hematoma Patient denies loss of consciousness is able to describe the event, offers no neurological symptoms of headache, dizziness, no nausea, no vomiting, no hip discomfort Head CT showed no acute intracranial bleed No further intervention recommended, Tylenol for pain Recommend PT eval Check Orthostatic blood pressure Increase Namenda to 5 mg p.o. b.i.d. Discharged on Thursday. I spent ___20___ minutes with the patient and/or on the patient floor today, greater than?50% of which was spent counseling/coordinating care. Reason for contiued inpatient stay Substantial Risk for: inability to function, rapid decompensation and med/psych decompensation
--- NOTE | 2022-02-21 14:15 | PM.PSYDC ---
DS: Providers Provider Date of Service: 02/24/22 Date of admission: 01/01/22 15:41 Date of discharge: 02/24/22 Primary care physician: Nishant Corral MD Consults: 02/10/22 14:10 Consult to Hospitalist Routine Consulting Provider: Hospitalist Reason For Exam: Recent fall Attending physician on discharge: Jose PinedaKnapp DS: Diagnosis Discharge Diagnosis (1) Fall: Status: Acute (2) Left parietal scalp hematoma: Status: Acute DS: Medications Discharge Medications Home Medications: Home Medications Medication Instructions Recorded Confirmed acetaminophen 650 mg 650 mg PO Q8H PRN Pain 04/04/21 12/31/21 tablet,extended release sertraline 100 mg tablet 100 mg PO BEDTIME 12/04/21 12/31/21 aripiprazole 10 mg tablet 1 tab PO DAILY 12/31/21 12/31/21 donepezil 10 mg tablet 1 tab PO DAILY 12/31/21 12/31/21 ferrous sulfate 325 mg (65 mg 325 mg PO DAILY 12/31/21 12/31/21 iron) tablet mirtazapine 15 mg tablet 1 tab PO BEDTIME 12/31/21 12/31/21 Previous Rx's Medication Instructions Recorded calcium polycarbophil 625 mg 1,250 mg PO DAILY 30 days #60 tabs 04/17/21 tablet (FiberCon) cholecalciferol (vitamin D3) 50 50 mcg PO DAILY 30 days #30 tabs 04/17/21 mcg (2,000 unit) tablet cyanocobalamin (vitamin B-12) 1,000 mcg PO DAILY 30 days #30 tabs 04/17/21 1,000 mcg tablet levothyroxine 75 mcg tablet 75 mcg PO DAILY 30 days #30 tabs 04/17/21 simvastatin 20 mg tablet 20 mg PO BEDTIME 30 days #30 tabs 04/17/21 vitamins A,C,T-vvox-qhriir 14,320 2 cap PO DAILY 30 days #60 caps 04/17/21 unit-226 mg-200 unit capsule (PreserVision AREDS) Mental Status Exam Mental Status Exam Patient Appearance: Well Grooomed Patient Orientation: Person and Situation Level of Consciousness: Awake Patient Behavior: Cooperative Mood Description: Calm Affect Description: Relaxed Patient Cognition Impaired: Yes Ability to Follow Directions: Good Speech Pattern: Clear Hallucinations: None Delusions: Not Present Thought Process: Linear Thought Content: positive for Circumstantial Judgement: Fair Data Imaging Diagnostic Imaging Impressions Head CT 01/09/22 19:11 IMPRESSION: Moderate to large left scalp hematoma without calvarial fracture. No acute intracranial process seen. No left rib fracture abnormality seen. The lungs are clear Ribs X-Ray 01/09/22 19:17 IMPRESSION: Moderate to large left scalp hematoma without calvarial fracture. No acute intracranial process seen. No left rib fracture abnormality seen. The lungs are clear Head CT 02/10/22 15:03 IMPRESSION: No evidence of acute intracranial hemorrhage or edematous territorial infarction. Chest X-Ray 02/11/22 13:09 IMPRESSION: * No evidence of pneumonia. * There is likely a small hiatal hernia of the stomach. DS: Summary Hospital Course Hospital Course: The patient is an elderly male with a long history of major depressive disorder and dementia who was admitted for exacerbation of depression with severe anhedonia and failure to thrive. Please see the HPI of the admission note for further details. On admission, the patient was severely depressed, unable to take care of himself. We checked his list of medications and we increased Zoloft up to 150 mg p.o. q.a.m.. Even though that the patient was able to tolerate this medication there were no changes in his mental status. Also be there was over-sedation so the Abilify was lowered from 10 mg to 5 mg with some improvement of over-sedation. He had some soft psychotic symptoms that were resolved after UTI was treated. Since the patient was not improving and his cognition was severely deteriorated due to the depression, we had a family meeting and finally we decided to try a short course of ECT to improve his dysphoria. He had 7 sessions with a remark improvement of his mood. The patient was at his baseline he was pleasant cooperative, able to participate in groups but with cognitive impairment. We started increasing Aricept up to 10 mg po qhs to target cognition and then adding Namenda titrated up to 5 mg p.o. b.i.d. with no side effects and some improvement of his cognition. The functionality of the patient deteriorated remarkably and we have a long discussion with the family about what would be the best discharge planning. We were contemplating the possibility with [facility] facility but eventually his decided to take him but home with several ancillary services the social sciences department chair arranged. Since there were no safety concerns discharge planning was discussed. 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 Dementia Referrals: [facility] [Other] - 3-5 Days (Your have been referred to [facility] ([facility] will come to your home for assessment on the week of 02/24/22. master lay out specialist, Daja Montesinos will coordinate home visit with you.) [facility] [Other] - 02/26/22 4:00 pm (Your first appointment with Brenda Mak NP is scheduled for 02/26/22 at 4pm, virtually. ) [facility] [Other] - 02/26/22 (Visiting nurse services to begin for [facility], Physical and occupational therapy, and social worker delinquency prevention on 02/26/22. ) [facility] [Other] - 02/25/22 11:30 am (Referred for personal care and homemaking services for personal care with activities of daily living, meals and housekeeping. RN will complete intake on 02/25/22 at 11:30am and services to start same day. ) Nishant Corral MD [Primary Care Provider] - 3 Weeks Discharge Medications: New hydroxyzine HCl 25 mg Tablet 25 mg PO BEDTIME PRN (Reason: Anxiety) 30 Days Qty: 30 0RF sertraline 50 mg Tablet 150 mg PO BEDTIME 30 Days Qty: 90 0RF aripiprazole [Abilify] 5 mg Tablet 5 mg PO DAILY@1600 30 Days Qty: 30 0RF memantine 5 mg Tablet 5 mg PO BID 30 Days Qty: 60 0RF Continued donepezil 10 mg tablet 1 tab PO DAILY 30 Days Qty: 30 0RF cyanocobalamin (vitamin B-12) 1,000 mcg Tablet 1,000 mcg PO DAILY 30 Days Qty: 30 0RF acetaminophen 650 mg Tablet Extended Release 650 mg PO Q8H PRN (Reason: Pain) Qty: 60 0RF levothyroxine 75 mcg tablet 75 mcg PO DAILY 30 Days Qty: 30 0RF simvastatin 20 mg tablet 20 mg PO BEDTIME 30 Days Qty: 30 0RF ferrous sulfate 325 mg (65 mg iron) Tablet 325 mg PO DAILY Qty: 30 0RF calcium polycarbophil [FiberCon] 625 mg Tablet 1,250 mg PO DAILY 30 Days Qty: 60 0RF PreserVision AREDS [id number] Capsule 2 cap PO DAILY 30 Days Qty: 60 0RF cholecalciferol (vitamin D3) 50 mcg (2,000 unit) Tablet 50 mcg PO DAILY 30 Days Qty: 30 0RF Discontinued mirtazapine 15 mg tablet 1 tab PO BEDTIME aripiprazole 10 mg tablet 1 tab PO DAILY sertraline 100 mg tablet 100 mg PO BEDTIME Discharge Orders: Discharge Order (Routine); Ordered 03/03/22 Ordered By: Jose Knapp Diet: Advance to usual diet Activity on Discharge: As tolerated Stand Alone Forms: Patient Portal Discharge page Care Plan Goals: Care plan goals achieved in this admission Health Concerns: Continue outpatient services by primary care physician Plan of Treatment: Continue medical treatment and psychiatric team treatment as an outpatient Assessment: Elderly male with a long history of major depressive disorder and dementia who was admitted for exacerbation of severe anhedonia with failure to thrive and severe weight loss. Currently much better after a short course of ECT and changes in his medications. At this moment no safety concerns.
[2022-02-21] MEDS: ARIPiprazole 5 MG TABLET PO (15:28)
[2022-02-21 20:15] VITALS: BP 115/54; PULSE 67; RESP 18; TEMP 36.8; O2SAT 97
[2022-02-21] MEDS: Atorvastatin Calcium 10 MG TABLET PO (20:22)
[2022-02-21] MEDS: Sertraline HCL 50 MG TABLET 150 MG PO (20:22)
[2022-02-22] MEDS: Levothyroxine Sodium 75 MCG TABLET PO (05:44)
[2022-02-22 06:00] VITALS: BP 87/50; PULSE 82; RESP 16; TEMP 36.6; O2SAT 97
[2022-02-22] MEDS: Ferrous Sulfate 324 MG TABLET.DR PO (08:53)
[2022-02-22] MEDS: Multivitamin TABLET 1 TAB PO (08:53)
[2022-02-22] MEDS: Donepezil HCl 10 MG TABLET PO (08:53)
[2022-02-22] MEDS: Memantine HCl 5 MG TABLET PO ×2 (08:54→20:34)
[2022-02-22] MEDS: calcium polycarbophiL TABLET 2 TAB PO (08:54)
[2022-02-22] MEDS: ARIPiprazole 5 MG TABLET PO (16:08)
[2022-02-22 18:00] VITALS: BP 125/58; PULSE 59; RESP 14; TEMP 37.1; O2SAT 99
--- NOTE | 2022-02-22 18:50 | P.PNPSI_ITS ---
Subjective Subjective Date of Service: 02/22/22 Reason For Visit: Change mental status/depression Interim History: The nursing staff reported the patient has been participating in groups he is pleasant and cooperative. On interview the patient denies new symptoms he feels much better. He is looking forward to possible DC Thursday. Denies SI. Review of Systems Review of Systems as above. Yes all other systems are reviewed and are negative and Unobtainable due to mental status Reports Normal hearing present Reports Normal hearing present Mental Status Exam Mental Status Exam Narrative: dressed in hospital [facility]. large bruises over left face/orbit/forehead. cooperative. no PMA/PMR. speech WNL. thoughts linear and logical. affect full range and normo-intense. mood improved. no SI/HI/AVH expressed. Patient Appearance: Well Grooomed Patient Orientation: Person and Situation Level of Consciousness: Awake Patient Behavior: Cooperative Mood Description: Calm Affect Description: Relaxed Patient Cognition Impaired: Yes Ability to Follow Directions: Good Speech Pattern: Clear Memory Description: Episodic Impaired Diagnostics Vital Signs (24Hr): Vital Signs - 24 hr 02/21/22 20:15 02/22/22 06:00 Temperature 98.2 F 97.8 F Pulse Rate 67 82 Respiratory Rate 18 16 Blood Pressure 115/54 L 87/50 L Pulse Oximetry 97 97 Oxygen Delivery Method Room Air Room Air BMI result Body Mass Index 18.1 Labs Results: 02/03/22 10:53 02/11/22 12:20 Imaging Radiology Impressions: ITS Impressions Head CT 01/09/22 19:11 IMPRESSION: Moderate to large left scalp hematoma without calvarial fracture. No acute intracranial process seen. No left rib fracture abnormality seen. The lungs are clear Ribs X-Ray 01/09/22 19:17 IMPRESSION: Moderate to large left scalp hematoma without calvarial fracture. No acute intracranial process seen. No left rib fracture abnormality seen. The lungs are clear Head CT 02/10/22 15:03 IMPRESSION: No evidence of acute intracranial hemorrhage or edematous territorial infarction. Chest X-Ray 02/11/22 13:09 IMPRESSION: * No evidence of pneumonia. * There is likely a small hiatal hernia of the stomach. Medications Medications Current Medications Acetaminophen (Acetaminophen 325 Mg Tablet) 650 mg PO Q6H PRN PRN Reason: Headache/Pain Mild Scale (1-3) Last Admin: 02/11/22 09:37 Dose: 650 mg Al Hydroxide/Mg Hydroxide (Magnesium Hydrox/Alum Hydrox 30 Ml Oral.Susp) 30 ml PO Q6H PRN PRN Reason: Heartburn/Nausea Aripiprazole (Aripiprazole 5 Mg Tablet) 5 mg PO DAILY@1600 [facility] Last Admin: 02/22/22 16:08 Dose: 5 mg Atorvastatin Calcium (Atorvastatin Calcium 10 Mg Tablet) 10 mg PO BEDTIME [facility] Last Admin: 02/21/22 20:22 Dose: 10 mg Bacitracin (Bacitracin Oint 14 Gm Tube) 1 appl TOPICAL BID [facility]; Protocol Last Admin: 02/22/22 09:43 Dose: Not Given Calcium Polycarbophil (Calcium Polycarbophil Tablet) 2 tab PO DAILY [facility] Last Admin: 02/22/22 08:54 Dose: 2 tab Donepezil HCl (Donepezil Hcl 10 Mg Tablet) 10 mg PO DAILY [facility] Last Admin: 02/22/22 08:53 Dose: 10 mg Ferrous Sulfate (Ferrous Sulfate 324 Mg Tablet.Dr) 324 mg PO DAILY [facility] Last Admin: 02/22/22 08:53 Dose: 324 mg Hydroxyzine HCl (Hydroxyzine Hcl 25 Mg Tablet) 25 mg PO BEDTIME PRN PRN Reason: Anxiety Last Admin: 02/20/22 21:12 Dose: 25 mg Levothyroxine Sodium (Levothyroxine Sodium 75 Mcg Tablet) 75 mcg PO DAILY@0630 [facility] Last Admin: 02/22/22 05:44 Dose: 75 mcg Magnesium Hydroxide (Milk Of Magnesia 30 Ml Oral.Susp) 30 ml PO DAILY PRN PRN Reason: Constipation Last Admin: 01/28/22 15:36 Dose: 30 ml Memantine (Memantine Hcl 5 Mg Tablet) 5 mg PO BID [facility] Last Admin: 02/22/22 08:54 Dose: 5 mg Multivitamins/Vitamin C (Multivitamin Tablet) 1 tab PO DAILY [facility] Last Admin: 02/22/22 08:53 Dose: 1 tab Ondansetron HCl (Ondansetron Hcl 4 Mg/2 Ml Vial) 4 mg IVPUSH ONCE PRN PRN Reason: Nausea and Vomiting Pharmacy Consult (Consult Rx Perform Med Rec) 1 each MISCELLANE ONCE PRN PRN Reason: Consult order Sertraline HCl (Sertraline Hcl 50 Mg Tablet) 150 mg PO BEDTIME [facility] Last Admin: 02/21/22 20:22 Dose: 150 mg Allergies Allergies Allergy/AdvReac Type Severity Reaction Status Date / Time No Known Allergies Allergy Verified 12/04/21 10:54 Assessment & Plan Assessment & Plan (1) Fall: Status: Acute Code(s): W19.XXXA - Unspecified fall, initial encounter (2) Left parietal scalp hematoma: Status: Acute Code(s): S00.03XA - Contusion of scalp, initial encounter Plan Call to assess patient home after a fall and a small left parietal hematoma Mechanical fall/small left parietal scalp hematoma Patient denies loss of consciousness is able to describe the event, offers no neurological symptoms of headache, dizziness, no nausea, no vomiting, no hip discomfort Head CT showed no acute intracranial bleed No further intervention recommended, Tylenol for pain Recommend PT eval Check Orthostatic blood pressure Increase Namenda to 5 mg p.o. b.i.d. Discharged on Thursday. I spent minutes with the patient and/or on the patient floor today, greater than?50% of which was spent counseling/coordinating care. Reason for contiued inpatient stay Substantial Risk for: inability to function, rapid decompensation and med/psych decompensation
[2022-02-22] MEDS: Sertraline HCL 50 MG TABLET 150 MG PO (20:34)
[2022-02-22] MEDS: Atorvastatin Calcium 10 MG TABLET PO (20:34)
[2022-02-23] MEDS: Levothyroxine Sodium 75 MCG TABLET PO (06:00)
[2022-02-23] MEDS: Donepezil HCl 10 MG TABLET PO (08:43)
[2022-02-23] MEDS: calcium polycarbophiL TABLET 2 TAB PO (08:43)
[2022-02-23] MEDS: Ferrous Sulfate 324 MG TABLET.DR PO (08:43)
[2022-02-23] MEDS: Multivitamin TABLET 1 TAB PO (08:43)
[2022-02-23] MEDS: Memantine HCl 5 MG TABLET PO ×2 (08:43→21:04)
[2022-02-23 09:11] LABS: COVID-19 Test Negative (Negative)
--- NOTE | 2022-02-23 15:33 | HO.PSYCHPN ---
Subjective Subjective Date of Service: 02/23/22 Reason For Visit: Change mental status/depression Interim History: Patient seen and discussed. Had a low grade temp 100.2 this AM. COVID tested and was negative.He reports he is feeling well. Denies any pain or pther physical symptoms. He is in no distress and feels no chills. ROS was negative. Patient has been participating in groups he is pleasant and cooperative. On interview the patient denies new symptoms he feels much better. He is looking forward to possible DC Thursday. Denies SI. Review of Systems Review of Systems as above. Yes all other systems are reviewed and are negative and Unobtainable due to mental status Reports Normal hearing present Reports Normal hearing present Mental Status Exam Mental Status Exam Narrative: dressed in hospital [facility]. large bruises over left face/orbit/forehead. cooperative. no PMA/PMR. speech WNL. thoughts linear and logical. affect full range and normo-intense. mood improved. no SI/HI/AVH expressed. Patient Appearance: Well Grooomed Patient Orientation: Person and Situation Level of Consciousness: Awake Patient Behavior: Cooperative Mood Description: Calm Affect Description: Relaxed Patient Cognition Impaired: Yes Ability to Follow Directions: Good Speech Pattern: Clear Memory Description: Episodic Impaired Diagnostics Vital Signs (24Hr): Vital Signs - 24 hr 02/22/22 18:00 Temperature 98.7 F Pulse Rate 59 Respiratory Rate 14 Blood Pressure 125/58 L Pulse Oximetry 99 Oxygen Delivery Method Room Air BMI result Body Mass Index 18.1 Labs Results: 02/03/22 10:53 02/11/22 12:20 Labs: Laboratory Results - last 48 hr 02/23/22 02/23/22 08:50 08:50 COVID-19 (BEV) Negative COVID-19 Clin Com See Note SARS Antigen (LFIA) Cancelled Imaging Radiology Impressions: ITS Impressions Head CT 01/09/22 19:11 IMPRESSION: Moderate to large left scalp hematoma without calvarial fracture. No acute intracranial process seen. No left rib fracture abnormality seen. The lungs are clear Ribs X-Ray 01/09/22 19:17 IMPRESSION: Moderate to large left scalp hematoma without calvarial fracture. No acute intracranial process seen. No left rib fracture abnormality seen. The lungs are clear Head CT 02/10/22 15:03 IMPRESSION: No evidence of acute intracranial hemorrhage or edematous territorial infarction. Chest X-Ray 02/11/22 13:09 IMPRESSION: * No evidence of pneumonia. * There is likely a small hiatal hernia of the stomach. Medications Medications Current Medications Acetaminophen (Acetaminophen 325 Mg Tablet) 650 mg PO Q6H PRN PRN Reason: Headache/Pain Mild Scale (1-3) Last Admin: 02/11/22 09:37 Dose: 650 mg Al Hydroxide/Mg Hydroxide (Magnesium Hydrox/Alum Hydrox 30 Ml Oral.Susp) 30 ml PO Q6H PRN PRN Reason: Heartburn/Nausea Aripiprazole (Aripiprazole 5 Mg Tablet) 5 mg PO DAILY@1600 [facility] Last Admin: 02/23/22 15:43 Dose: 5 mg Atorvastatin Calcium (Atorvastatin Calcium 10 Mg Tablet) 10 mg PO BEDTIME [facility] Last Admin: 02/22/22 20:34 Dose: 10 mg Bacitracin (Bacitracin Oint 14 Gm Tube) 1 appl TOPICAL BID [facility]; Protocol Last Admin: 02/23/22 08:44 Dose: Not Given Calcium Polycarbophil (Calcium Polycarbophil Tablet) 2 tab PO DAILY [facility] Last Admin: 02/23/22 08:43 Dose: 2 tab Donepezil HCl (Donepezil Hcl 10 Mg Tablet) 10 mg PO DAILY [facility] Last Admin: 02/23/22 08:43 Dose: 10 mg Ferrous Sulfate (Ferrous Sulfate 324 Mg Tablet.Dr) 324 mg PO DAILY [facility] Last Admin: 02/23/22 08:43 Dose: 324 mg Hydroxyzine HCl (Hydroxyzine Hcl 25 Mg Tablet) 25 mg PO BEDTIME PRN PRN Reason: Anxiety Last Admin: 02/20/22 21:12 Dose: 25 mg Levothyroxine Sodium (Levothyroxine Sodium 75 Mcg Tablet) 75 mcg PO DAILY@0630 [facility] Last Admin: 02/23/22 06:00 Dose: 75 mcg Magnesium Hydroxide (Milk Of Magnesia 30 Ml Oral.Susp) 30 ml PO DAILY PRN PRN Reason: Constipation Last Admin: 01/28/22 15:36 Dose: 30 ml Memantine (Memantine Hcl 5 Mg Tablet) 5 mg PO BID [facility] Last Admin: 02/23/22 08:43 Dose: 5 mg Multivitamins/Vitamin C (Multivitamin Tablet) 1 tab PO DAILY [facility] Last Admin: 02/23/22 08:43 Dose: 1 tab Ondansetron HCl (Ondansetron Hcl 4 Mg/2 Ml Vial) 4 mg IVPUSH ONCE PRN PRN Reason: Nausea and Vomiting Pharmacy Consult (Consult Rx Perform Med Rec) 1 each MISCELLANE ONCE PRN PRN Reason: Consult order Sertraline HCl (Sertraline Hcl 50 Mg Tablet) 150 mg PO BEDTIME [facility] Last Admin: 02/22/22 20:34 Dose: 150 mg Allergies Allergies Allergy/AdvReac Type Severity Reaction Status Date / Time No Known Allergies Allergy Verified 12/04/21 10:54 Assessment & Plan Assessment & Plan (1) Fall: Status: Acute Code(s): W19.XXXA - Unspecified fall, initial encounter (2) Left parietal scalp hematoma: Status: Acute Code(s): S00.03XA - Contusion of scalp, initial encounter Plan Call to assess patient home after a fall and a small left parietal hematoma Mechanical fall/small left parietal scalp hematoma Patient denies loss of consciousness is able to describe the event, offers no neurological symptoms of headache, dizziness, no nausea, no vomiting, no hip discomfort Head CT showed no acute intracranial bleed No further intervention recommended, Tylenol for pain Recommend PT eval Check Orthostatic blood pressure Increase Namenda to 5 mg p.o. b.i.d. Discharged on Thursday. 02/23 Continue treatment plan. I spent minutes with the patient and/or on the patient floor today, greater than?50% of which was spent counseling/coordinating care. Reason for contiued inpatient stay Substantial Risk for: inability to function and rapid decompensation
[2022-02-23] MEDS: ARIPiprazole 5 MG TABLET PO (15:43)
[2022-02-23 19:40] VITALS: BP 118/56; PULSE 70; RESP 18; TEMP 36.7; O2SAT 96
[2022-02-23] MEDS: Atorvastatin Calcium 10 MG TABLET PO (21:04)
[2022-02-23] MEDS: Sertraline HCL 50 MG TABLET 150 MG PO (21:04)
[2022-02-24] MEDS: Levothyroxine Sodium 75 MCG TABLET PO (05:50)
[2022-02-24 06:00] VITALS: BP 119/58; PULSE 58; RESP 18; TEMP 36.9; O2SAT 95
[2022-02-24] MEDS: Multivitamin TABLET 1 TAB PO (10:00)
[2022-02-24] MEDS: Memantine HCl 5 MG TABLET PO (10:00)
[2022-02-24] MEDS: calcium polycarbophiL TABLET 2 TAB PO (10:00)
[2022-02-24] MEDS: Donepezil HCl 10 MG TABLET PO (10:01)
[2022-02-24] MEDS: Ferrous Sulfate 324 MG TABLET.DR PO (10:01)
== END 2022-02-24 12:51 | disposition home health service (06) | DRG 885 ==
LOC: HO.ED 12-31 07:08 → HO.PGERI 01-01 15:49
PROVIDERS: Internal Medicine; Physician Assistant; Psychiatry & Neurology Psychiatry; Registered Nurse; Social Worker; Admitting Provider Psychiatry & Neurology Psychiatry; Emergency Provider Emergency Medicine; PCP Internal Medicine; Visit Provider Psychiatry & Neurology Psychiatry
PROC: GZB4ZZZ Other Electroconvulsive Therapy (ICD-10-PCS; CPT 90870; principal; 2022-01-22 09:20)
PROC: (CPT 90870; principal; 2022-01-24 15:40)
DX: F33.3 Major depressive disorder, recurrent, severe with psychotic symptoms (principal); N39.0 Urinary tract infection, site not specified; Z68.1 Body mass index [BMI] 19.9 or less, adult; S00.03XA Contusion of scalp, initial encounter; I95.1 Orthostatic hypotension; L89.152 Pressure ulcer of sacral region, stage 2; F03.90 Unspecified dementia, unspecified severity, without behavioral disturbance, psychotic disturbance, mood disturbance, and anxiety; W18.11XA Fall from or off toilet without subsequent striking against object, initial encounter; R62.7 Adult failure to thrive; Z20.822 Contact with and (suspected) exposure to COVID-19; Z87.891 Personal history of nicotine dependence; Z79.890 Hormone replacement therapy; Z79.899 Other long term (current) drug therapy
CPT/HCPCS: 36415; 70450; 71046; 71101; 80048; 80053; 80061; 81003; 82607; 82746; 83540; 84439; 84443; 85025; 87635; 90870; 92950; 93005; 97110; 97116; 97162; 99285; J0330; J0461; J2060; J2250; J2405

== ENCOUNTER → 2022-09-01 12:26 | Outpatient (BNVA) | payer MEDICARE, OTHER, SELFPAY | PROVIDERS: PCP Internal Medicine; Visit Provider Psychiatry & Neurology Psychiatry | DX: G47.33 Obstructive sleep apnea (adult) (pediatric) (principal); R41.89 Other symptoms and signs involving cognitive functions and awareness; F33.1 Major depressive disorder, recurrent, moderate | CPT/HCPCS: 99212 ==

== ENCOUNTER → 2022-10-09 13:55 | Outpatient (BNVA) | payer MEDICARE, OTHER, SELFPAY | PROVIDERS: PCP Internal Medicine; Visit Provider Nurse Practitioner Family | DX: G47.33 Obstructive sleep apnea (adult) (pediatric) (principal); R41.89 Other symptoms and signs involving cognitive functions and awareness; R53.83 Other fatigue | CPT/HCPCS: 99212 ==

== ENCOUNTER → 2023-01-14 14:29 | Outpatient (BNVA) | payer MEDICARE, OTHER, SELFPAY | PROVIDERS: PCP Internal Medicine; Visit Provider Nurse Practitioner Family | DX: G47.33 Obstructive sleep apnea (adult) (pediatric) (principal); R41.89 Other symptoms and signs involving cognitive functions and awareness; R53.83 Other fatigue | CPT/HCPCS: 99212 ==

== ENCOUNTER → 2023-03-10 19:30 | Outpatient (REF) | payer MEDICARE, OTHER, SELFPAY | LOC: HO.SL 19:30 | PROVIDERS: PCP Internal Medicine; Visit Provider Nurse Practitioner Family | DX: G47.33 Obstructive sleep apnea (adult) (pediatric) (principal) | CPT/HCPCS: 95811 ==

== ENCOUNTER → 2023-03-11 19:30 | Outpatient (BNV) | payer MEDICARE, OTHER, SELFPAY | PROVIDERS: PCP Internal Medicine; Visit Provider Psychiatry & Neurology Neurology | DX: G47.33 Obstructive sleep apnea (adult) (pediatric) (principal) | CPT/HCPCS: 95811 ==

== ENCOUNTER → 2023-05-18 14:03 | Outpatient (BNVA) | payer MEDICARE, OTHER, SELFPAY | PROVIDERS: PCP Internal Medicine; Visit Provider Nurse Practitioner Family ==

== ENCOUNTER 2023-05-18 14:31 | Outpatient (AMB) | payer MEDICARE, OTHER, SELFPAY ==
--- NOTE | 2023-05-18 14:03 | A.OFFVIS_ITS ---
Intake Intake Visit Reasons: 4m f/up Mild Cognitive/ROYAL - Video Intake Note: Pt is doing well, except even on nights he wears the mask still shows non compliance Allergies bee venom protein (honey bee) Allergy (Severe, Verified 05/18/23 14:04) Swelling HPI HPI Comments History of Present Illness Details 77 y/o male patient presents with his wi fe for follow up of cognitive decline and ROYAL. Pt's CPAP pressures was changed to [id number]. The CPAP compliance and therapy response reviewed (04/17/23-05/16/23) with the patient. The usage days 97 % and average usage hours 10 hrs. The max pressure is 11.6 and the AHI was 11.2/hr. The apnea index was central 0.6, obstructive 2.7 and unknown 7.4. Pt's baseline sleep study result was significant for severe degree of sleep apnea. The AHI was 58/hr and oxygen eleuterio was 83%. Pt's reports patient's memory and mood has improved a lot. Pt's also notice that he is more active and has more energy during the daytime. He sleeps well and his REM behavior also has resolved. He id on mitazapine 10 mg qHS. PFSH Medical History Depression Hypothyroidism Prostate cancer Depression HLD (hyperlipidemia) HTN (hypertension) Surgical History H/O prostatectomy History of hernia surgery Family History Other Prostate cancer Household Members: Spouse Housing: House Do you presently have visiting nurse or other home services: No Alcohol intake: never Patient Tobacco Use Status: Former Tobacco user Tobacco use type: Cigarette Cigarette Packs Per Day: 1 Cigarettes Per Day: 20.0 e-Cigarette/Vaping Use: Never Used Second Hand Smoke Exposure: No Advance Directives Date on File: 01/29/22 service: Yes ([employer]) Sexual orientation: Straight/Heterosexual Review of Systems Const All systems reviewed & are unremarkable except as noted in HPI and below Physical Exam Const General: cooperative Orientation/consciousness: patient oriented x3 HEENT Head: Yes normocephalic Neck Neck: Yes full ROM and Yes supple Resp Effort & Inspection: normal respiratory effort and able to speak in complete sentences Neuro Other: Right hand mild resting tremor. General: patient oriented x3, moves all extremities and other (left hands mild resting tremor) Cranial nerves: Yes Bilaterally intact EOM present, Yes Midline tongue present, Yes Ability to bilaterally rotate head present and Yes Other cranial nerve findings present (decreased hearing. decreased facial expression.) Cognition (Neuro): normal cognition Psych Appearance: grossly normal Assessment & Plan Assessment & Plan (1) Cognitive impairment: Code(s): R41.89 - Other symptoms and signs involving cognitive functions and awareness (2) Fatigue: Code(s): R53.83 - Other fatigue (3) ROYAL (obstructive sleep apnea): Comment: Severe degree of sleep apnea. The AHI was 58/hr and oxygen eleuterio was 83%. Code(s): G47.33 - Obstructive sleep apnea (adult) (pediatric) Plan Changed pressure to [id number]. Stressed compliance, use CPAP nightly and more than 4 hours. Continue to engage more cognitive and physical activity. Will consider namenda in the future. Telehealth Telehealth Location of provider rendering services: practice address Location of patient: address on file Patient Identification confirmed using: Name, : Yes Telehealth method: video Patient verbally consented to treatment: Yes Patient verbally consented to billing insurance company: Yes Patient informed of any privacy concerns related to visit: No Coding Level of Care Code Tele Est Pt Level 3 (45996) Diagnoses Cognitive impairment R41.89 Fatigue R53.83 ROYAL (obstructive sleep apnea) G47.33
== END 2023-05-18 14:37 | disposition home or self-care (01) ==
PROVIDERS: PCP Internal Medicine; Visit Provider Nurse Practitioner Family
DX: R41.89 Other symptoms and signs involving cognitive functions and awareness (principal); R53.83 Other fatigue; G47.33 Obstructive sleep apnea (adult) (pediatric)
CPT/HCPCS: 99213

== ENCOUNTER 2023-06-29 11:59 | Inpatient (IN) | payer MEDICARE, OTHER, SELFPAY ==
--- NOTE | ~2023-06-29 | CT_ITS ---
EXAMINATION: CT HEAD WITHOUT CONTRAST CLINICAL INFORMATION: AMS, obtunded COMPARISON: None available. TECHNIQUE: Contiguous axial imaging was performed from the skull base to vertex without intravenous administration of contrast. This CT examination was performed using dose optimization techniques as appropriate, variously including the following: *Automated exposure control *Adjustment of mA and/or kV according to patient size (this includes techniques or standardized protocols for targeted exams where dose is matched to indication/reason for exam; i.e. extremities or head) *Use of iterative reconstruction technique DLP: 675 mGy-cm FINDINGS: There is no acute intra-axial, extra-axial bleed, masses or midline shift. There is no acute infarction evolution. There is no edema. The menjivar to white matter differentiation is maintained normal. The lateral ventricles are symmetrical in size and configuration but mildly enlarged. Bone windows reveal no calvarial abnormality. There is no scalp soft tissue abnormality. Bilateral paranasal sinuses and mastoid air cells are well-aerated with air-fluid level left maxillary sinus. Rest of the paranasal sinuses are well-aerated and clear. CT/CT head/brain wo IV con IMPRESSION: No acute intracranial process seen.
--- NOTE | ~2023-06-29 | CT_ITS ---
EXAMINATION: CT HEAD WITHOUT CONTRAST CLINICAL INFORMATION: 77-year-old with acute mental status changes. COMPARISON: 02/10/2022 CT brain. TECHNIQUE: Contiguous axial imaging was performed from the skull base to vertex without intravenous administration of contrast. This CT examination was performed using dose optimization techniques as appropriate, variously including the following: *Automated exposure control *Adjustment of mA and/or kV according to patient size (this includes techniques or standardized protocols for targeted exams where dose is matched to indication/reason for exam; i.e. extremities or head) *Use of iterative reconstruction technique DLP: 677 mGy-cm FINDINGS: BRAIN VOLUME: Mild generalized diffuse parenchymal volume loss within the limitations of qualitative assessment. STRUCTURAL: No malformations. Brain and Meninges: No evidence for intracranial hemorrhage or acute territorial infarct. The menjivar-white matter interface is preserved. No extra-axial fluid collections, space-occupying process or mass effect. There is a tiny hypodensity in the medial right putamen stable in appearance from previous exam which may reflect a perivascular space or a tiny remote lacunar infarct. Mild patchy subcortical white matter hypodensities are noted in both cerebral hemispheres similar to previous exam consistent with mild chronic ischemic microangiopathy. VENTRICLES AND SUBARACHNOID SPACES: The ventricular system and subarachnoid spaces are consistent with mild volume loss without hydrocephalus, similar to the previous exam. ORBITAL STRUCTURES: Grossly unremarkable within the limitations of the study. OSSEOUS STRUCTURES, SINUSES/MASTOIDS, EXTRACRANIAL SOFT TISSUES: The calvarium is intact. The mastoids and middle ear cavities are unopacified. There is evidence of a previous FESS (functional endoscopic sinus surgery) procedure in the right sinonasal cavity similar to prior study, now with mucosal thickening in both maxillary sinuses, left more than right since prior exam. Mucosal thickening in the ethmoid complex is noted bilaterally stable on the right and slightly progressed on the left. There is an opacified posterior left ethmoid air cell and there are some retained secretions in the sphenoid sinus on the left on current study. The visualized extracranial soft tissue structures are grossly unremarkable within the limitations of the exam. CT/CT head/brain wo IV con IMPRESSION: 1. No acute intracranial process. No evidence for intracranial hemorrhage, extra-axial fluid collection, space-occupying process, mass effect or hydrocephalus. 2. 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 Tiny remote lacunar infarct in the right putamen versus perivascular space, unchanged. 3. 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
--- NOTE | ~2023-06-29 | XR_ITS ---
EXAMINATION: XR CHEST CLINICAL INFORMATION: Cough. COMPARISON: Chest radiograph dated 02/11/2022. TECHNIQUE: Frontal view of the chest was obtained. FINDINGS: The lungs are clear. The cardiomediastinal silhouette is normal in size. There is no pleural effusion or pneumothorax. No acute osseous abnormality. XR/XR chest 1V IMPRESSION: No acute cardiopulmonary findings.
[2023-06-29 12:02] VITALS: BP 131/63; PULSE 96; RESP 18; TEMP 36; O2SAT 93; BMI 21.9
--- NOTE | 2023-06-29 12:03 | ED_ITS ---
HPI - General Adult General Chief complaint: General Medical Stated complaint: Crisis Time Seen by Provider: 06/29/23 13:00 Source: patient, family, RN notes reviewed and old records reviewed Mode of arrival: ambulatory History of Present Illness HPI narrative: 77-year-old male with a past medical history of ROYAL, cognitive impairment, major depression, has previously been on [facility] with ECT treatment, presenting to the ED with complaining of progressive decompensation over the past few weeks. states patient has had weight loss, decreased p.o. intake, withdrawn, bizarre behaviors like undressing inappropriately, hallucinating/hearing voices, unable to perform ADLs (operate microwave/cell phone) and dry cough since . Does report fall last week without head strike. Admits symptoms are similar to prior psych admission. Denies fever, Related Data Home Medications Medication Instructions Recorded Confirmed mirtazapine 15 mg tablet 15 mg PO BEDTIME 10/09/22 06/30/23 sertraline 50 mg tablet 175 mg PO DAILY 10/09/22 06/30/23 Previous Rx's Medication Instructions Recorded aripiprazole 5 mg tablet (Abilify) 5 mg PO DAILY@1600 30 days #30 tabs 02/21/22 levothyroxine 75 mcg tablet 75 mcg PO DAILY 30 days #30 tabs 02/21/22 simvastatin 20 mg tablet 20 mg PO BEDTIME 30 days #30 tabs 02/21/22 Allergies Allergy/AdvReac Type Severity Reaction Status Date / Time bee venom protein (honey bee) Allergy Severe Swelling Verified 06/29/23 12:07 Review of Systems 2 Review of Systems: History limited due to patient's acute mental status, obtained from as per HPI Yes all other systems are reviewed and are negative Constitutional: Constitutional: Reports as per HPI [facility] Past Medical History Attestation statement: The following information was validated with the patient. Source: old records reviewed Medical History Depression Hypothyroidism Prostate cancer Depression HLD (hyperlipidemia) HTN (hypertension) Surgical History H/O prostatectomy History of hernia surgery Family History Family History Other Prostate cancer Social History Social History Household Members: Spouse Housing: House Do you presently have visiting nurse or other home services: No Alcohol intake: never Patient Tobacco Use Status: Former Tobacco user Tobacco use type: Cigarette Cigarette Packs Per Day: 1 Cigarettes Per Day: 20.0 Smoked in Last 30 Days: No e-Cigarette/Vaping Use: Never Used Second Hand Smoke Exposure: No Use of substances other than those prescribed or required for medical reasons: No Advance Directives: No Advance Directives Information Provided: Yes Advance Directives Date on File: 01/29/22 Healthcare Proxy: Yes ( Lenora [phone]) Guardian: No service: Yes ([employer]ist) Sexual orientation: Straight/Heterosexual Physical Exam ED Vital Signs: Vital Signs - 24 hr 07/09/23 14:00 07/09/23 20:05 07/10/23 06:13 Temperature 97.8 F 97.5 F 97.5 F Pulse Rate 71 83 72 Respiratory Rate 16 16 16 Blood Pressure 135/69 188/98 H 166/83 H Pulse Oximetry 95 92 94 Oxygen Delivery Method Room Air Room Air Room Air BMI result Body Mass Index 21.9 Const General: cooperative, healthy appearing and no acute distress Orientation/consciousness: patient oriented x3 Limitations: no limitations HENMT Head: Yes normal to inspection and Yes atraumatic Ears: hearing grossly normal bilaterally General nose exam: Normal external nose present Face and sinus: Yes normal facial exam Eyes General: appearance normal, both eyes and all related structures EOM: EOMs intact bilaterally Neck Neck: Yes normal visual inspection and Yes no meningeal signs Resp Effort & Inspection: normal respiratory effort and no respiratory distress Auscultation: clear to auscultation bilaterally Cardio Rate: regular rate Heart sounds: S1 normal heart sound present and S2 normal heart sound present GI Inspection: Yes normal to inspection Palpation (GI): Soft to palpation, nontender, no guarding and not rigid Skin Rashes: no rashes Wounds: no wounds Neuro General: patient oriented x3, tone normal, moves all extremities, no meningeal signs, no focal motor deficits and CN's II-XI intact bilaterally Cranial nerves: Yes CN's II-XII intact bilaterally and Yes Bilaterally intact EOM present Motor exam (neuro): 5/5 motor strength present throughout Extrem General: Yes normal to inspection Course Course Course Narrative: Patient with history of depression comes to ER with complaint that he is not eating not speaking, losing weight,, patient admits to feeling depressed but not suicidal reports abnormal behaviors and hallucinations At this time he denies any chest pain or headache, he is cooperative with exam This rapid medical exam done in triage pending full ER evaluation -1500--labs reassuring XR chest 1V IMPRESSION: No acute cardiopulmonary findings. -straight cath attempted 2x without success. 177 cc on bladder scan. Condom catheter placed. Patient chronically incontinent -1630--ED care transferred to [facility] pending viral testing, head CT, UA and CARE team eval Reevaluation(s) Reevaluation #1: CT head without acute findings, viral testing is positive for RSV. UA has greater than 50 white cells, no bacteria. There is no significant contamination 26-11 squamous cells. Will treat with cefuroxime. Patient is medically cleared for care team evaluation Time: 20:28 Reevaluation #2: Start physician observation: The patient was seen by the care team and the patient will be bed search for [facility]- psychiatric care. Order to care team, patient's reports several falls at home therefore I will have the patient evaluated by physical therapy for the recommendations. The patient will be kept in the emergency department until disposition can be obtained or until his symptoms improve over time. Time: 11:00 Reevaluation #3: Medication reconciliation done. Patient will be a bed search for [facility]. Physician observation to be continued 07/04/2023 1621 - physician observation continued. Concurrently in bed search for [facility]. Vital signs stable. Will continue to monitor Additional Reevaluation(s): 07/07/23- physician observation to be continued. Patient is currently a geriatric bed search. Will continue to monitor 07/08- physician observation to be continued. Uneventful night. Will continue to monitor 07/08- 16:38 I was asked to review the patient's case as he has not been eating and drinking in the last 2 days per ER staff. The patient presented for failure to thrive and decreased oral intake. He has not had labs drawn since 06/29/2023. I ordered repeat labs. He is currently being followed by Psychiatry and plan for [facility] placement. 07/09- 01:00 I a evaluate the patient as I was told by nursing staff that his temperature was 95.5?. He is not tachycardic, his repeat labs were finally drawn without any concerning abnormalities. He has no leukocytosis or left shift. He has no evidence of AN. I asked the patient if he had any pain or complaints and he states that he is depressed and just wants to be left alone. Plan to repeat temperature in a few hours. Again, the patient is not confused currently he does not lack capacity to make decisions and I still feel it is inappropriate to force evaluation treatment on him if he is declining. Will continue to follow closely 07/09/23 0813: Patient noted to have a urinary tract infection. Ceftin ordered. Will continue to monitor. Physician observation continued pending case management/ disposition. 07/10/23 07:02-- Physician observation continued. Patient was started on Ceftin for UTI yesterday however most recent urine from 06/29 > will obtain UA today. RSV positive from 07/04. Plan is for patient be discharged home with family today 07/10 at 10:00AM. [facility] referral for nursing being made. -1230--repeat UA without appreciable infection. RBCs and blood. Will discontinue Ceftin. Was just made aware by CARE team at patient will now be inpatient bed search. Psychiatry SUPERVISOR MIRROR FABRICATIONTanya evaluated patient today due to family concerned that patient was not at baseline Medications Administered Generic Name Dose Route Start Last Admin Trade Name Freq PRN Reason Stop Dose Admin Aripiprazole 5 mg 07/02/23 16:00 07/09/23 17:12 Aripiprazole 5 Mg Tablet PO 5 mg DAILY@1600 SUJIT Administration Atorvastatin Calcium 10 mg 07/01/23 21:00 07/09/23 20:34 Atorvastatin Calcium 10 Mg Tablet PO 10 mg BEDTIME SUJIT Administration Cefuroxime Axetil 250 mg 07/09/23 09:00 07/10/23 08:28 Cefuroxime Axetil 250 Mg Tablet PO 250 mg BID SUJIT Administration Levothyroxine Sodium 75 mcg 07/01/23 17:30 07/10/23 06:05 Levothyroxine Sodium 75 Mcg Tablet PO Not Given DAILY@0600 SUJIT Mirtazapine 15 mg 07/01/23 21:00 07/09/23 20:35 Mirtazapine 15 Mg Tablet PO 15 mg BEDTIME SUJIT Administration Sertraline HCl 175 mg 07/01/23 17:45 07/10/23 08:28 Sertraline Hcl 50 Mg Tablet PO 175 mg DAILY SUJIT Administration Discontinued Medications Generic Name Dose Route Start Last Admin Trade Name Elida PRN Reason Stop Dose Admin Acetaminophen 650 mg 06/29/23 15:17 06/29/23 15:21 Acetaminophen 325 Mg Tablet PO 06/29/23 15:18 650 mg ONCE ONE Administration Acetaminophen 325 mg 06/29/23 15:35 06/29/23 15:54 Acetaminophen Supp 325 Mg Supp.Rect MI 06/29/23 15:36 Not Given ONCE ONE Cefuroxime Axetil 250 mg 06/29/23 21:00 07/06/23 10:16 Cefuroxime Axetil 250 Mg Tablet PO 07/06/23 09:01 250 mg BID SUJIT Administration Cefuroxime Axetil 250 mg 07/09/23 08:13 07/09/23 10:02 Cefuroxime Axetil 250 Mg Tablet PO 07/09/23 08:14 250 mg ONCE ONE Administration Sodium Chloride 1,000 mls @ 999 mls/hr 06/29/23 15:00 06/29/23 16:15 Ns IV 06/29/23 16:00 Infused .Q1H1M SUJIT Infusion Sodium Chloride 1,000 mls @ 999 mls/hr 07/08/23 16:45 07/08/23 18:02 Ns IV 07/08/23 17:45 Not Given .Q1H1M SUJIT Sodium Chloride 1,000 mls @ 999 mls/hr 07/09/23 01:00 07/09/23 02:29 Ns IV 07/09/23 02:00 Infused .Q1H1M SUJIT Infusion Lidocaine HCl 10 ml 06/29/23 15:17 06/29/23 15:21 Lidocaine Hcl 2 % Urojet 10 Ml Jel.Pf.Jayme TOPICAL 06/29/23 15:18 10 ml ONCE ONE Administration Medical Decision Making Medical Decision Making MDM Narrative: 77-year-old male with a past medical history of ROYAL, cognitive impairment, major depression, has previously been on [facility] with ECT treatment, presenting to the ED with complaining of progressive decompensation over the past few weeks. states patient has had weight loss, decreased p.o. intake, withdrawn, bizarre behaviors like undressing inappropriately, hallucinating/hearing voices, unable to perform ADLs (operate microwave/cell phone) and dry cough since Thanksgiving. On exam vital signs stable, NAD, A&O x3, no focal neuro deficits. Concern for metabolic/infectious etiology vs subacute CVA vs psychiatric illness Plan: EKG, labs, UA, CXR, head CT, CARE team consult Please refer to course for remaining clinical decision making, interpretation of labs/imaging results, and discussions with consultants and/or family members. Differential Diagnosis Differential Diagnoses: The differential diagnosis associated with the presentation includes As above Admission/Observation Consideration of admission/observation: Escalation of care including admission/observation considered Consult Healthcare Provider Management of the patient was discussed with: Behavioral Health Provider Lab Data [facility] Lab Attestation statement: I reviewed the patient's lab results. 07/09/23 00:13 07/09/23 00:13 Labs: Lab Results 06/29/23 06/29/23 06/29/23 Range/Units 12:29 14:03 17:49 WBC 8.7 (4.8-10.8) X10*3/uL RBC 4.41 L (4.60-5.80) X10*6/uL Hgb 13.5 L (14.0-18.0) g/dl Hct 41.0 L (42.0-52.0) % MCV 93.0 (80.0-98.0) fL MCH 30.6 (27.0-33.0) pg MCHC 32.9 (31.0-36.0) g/dl RDW 12.9 (11.0-16.0) % Plt Count 195 (160-400) X10*3/uL MPV 9.3 L (9.4-12.4) fL Immature Gran % (Auto) 0.2 (0.0-0.4) % Neut % (Auto) 85.1 H (45-73) % Lymph % (Auto) 8.1 L (20-40) % [place] % (Auto) 6.3 (2-11) % Eos % (Auto) 0.2 (0-4) % Baso % (Auto) 0.1 (0-2) % Lymph # (Auto) 0.7 L (1.2-4.9) X10*3/uL [place] # (Auto) 0.6 (0.1-1.2) X10*3/uL Eos # (Auto) 0.0 (0.0-0.4) X10*3/uL Baso # (Auto) 0.0 (0.0-0.2) X10*3/uL Abs Immat Gran (auto) 0.02 (0.00-0.03) X10*3/uL Absolute Neuts (auto) 7.4 (2.0-8.3) x10*3/uL Absolute Nucleated RBC 0.000 (0.0-0.012) X10*3/uL Nucleated RBC % (auto) 0.0 (0.0-0.2) /100WBC Sodium 139 (135-145) mmol/L Potassium 4.0 (3.3-5.1) mmol/L Chloride 101 (96-108) mmol/L Carbon Dioxide 25 (22-29) mmol/L Anion Gap 17 (12-20) BUN 30 H (9-16) mg/dL Creatinine 1.12 (0.5-1.4) mg/dL Estim Creat Clear Calc 57.1 Estimated GFR > 60 POC Glucose (60-115) mg/dL Random Glucose 109 (60-115) mg/dL Calcium 9.7 (8.4-10.2) mg/dL Magnesium 2.0 (1.6-2.6) mg/dL Total Bilirubin 0.5 (0.0-1.0) mg/dL Direct Bilirubin 0.2 (0.0-0.5) mg/dL AST 35 (5-37) U/L ALT 20 (0-40) U/L Alkaline Phosphatase 85 (39-117) U/L Ammonia 30 (13-55) umol/L Total Creatine Kinase (38-174) U/L Troponin I High Sens 5.4 8.3 D (<3.5-35.0) ng/L Total Protein 8.2 H (6.5-8.0) g/dL Albumin 4.1 (3.5-5.0) g/dL Lipase 13 (8-78) U/L Urine Color Urine Appearance Urine pH (5.0-9.0) Ur Specific [place] (1.005-1.025) Urine Protein (Neg-Trace) mg/dL Urine Glucose (UA) (Negative) mg/dL Urine Ketones (Negative) mg/dL Urine Blood (Negative) Urine Nitrite (Negative) Ur Leukocyte Esterase (Negative) Urine RBC (0-2) /HPF Urine WBC (0-5) /HPF Ur Squamous Epith Cells (0-2) /HPF Urine Bacteria (None Seen) Hyaline Casts (0-2) /LPF Urine Opiates Screen (Not Detect) Urine Fentanyl Screen (Not Detect) Ur Barbiturates Screen (Not Detect) Ur Phencyclidine Scrn (Not Detect) Ur Amphetamines Screen (Not Detect) U Benzodiazepines Scrn (Not Detect) Urine Cocaine Screen (Not Detect) U Marijuana (THC) Screen (Not Detect) Ethyl Alcohol < 10 mg/dL Influenza Type A (PCR) NEGATIVE (Negative) Influenza Type B (PCR) NEGATIVE (Negative) RSV RNA Qual (PCR) POSITIVE A (Negative) SARS-CoV-2 RNA (RT-PCR) NEGATIVE (Negative) 06/29/23 07/04/23 07/07/23 Range/Units 19:25 13:01 11:42 WBC (4.8-10.8) X10*3/uL RBC (4.60-5.80) X10*6/uL Hgb (14.0-18.0) g/dl Hct (42.0-52.0) % MCV (80.0-98.0) fL MCH (27.0-33.0) pg MCHC (31.0-36.0) g/dl RDW (11.0-16.0) % Plt Count (160-400) X10*3/uL MPV (9.4-12.4) fL Immature Gran % (Auto) (0.0-0.4) % Neut % (Auto) (45-73) % Lymph % (Auto) (20-40) % [place] % (Auto) (2-11) % Eos % (Auto) (0-4) % Baso % (Auto) (0-2) % Lymph # (Auto) (1.2-4.9) X10*3/uL [place] # (Auto) (0.1-1.2) X10*3/uL Eos # (Auto) (0.0-0.4) X10*3/uL Baso # (Auto) (0.0-0.2) X10*3/uL Abs Immat Gran (auto) (0.00-0.03) X10*3/uL Absolute Neuts (auto) (2.0-8.3) x10*3/uL Absolute Nucleated RBC (0.0-0.012) X10*3/uL Nucleated RBC % (auto) (0.0-0.2) /100WBC Sodium (135-145) mmol/L Potassium (3.3-5.1) mmol/L Chloride (96-108) mmol/L Carbon Dioxide (22-29) mmol/L Anion Gap (12-20) BUN (9-16) mg/dL Creatinine (0.5-1.4) mg/dL Estim Creat Clear Calc Estimated GFR POC Glucose 107 (60-115) mg/dL Random Glucose (60-115) mg/dL Calcium (8.4-10.2) mg/dL Magnesium (1.6-2.6) mg/dL Total Bilirubin (0.0-1.0) mg/dL Direct Bilirubin (0.0-0.5) mg/dL AST (5-37) U/L ALT (0-40) U/L Alkaline Phosphatase (39-117) U/L Ammonia (13-55) umol/L Total Creatine Kinase (38-174) U/L Troponin I High Sens (<3.5-35.0) ng/L Total Protein (6.5-8.0) g/dL Albumin (3.5-5.0) g/dL Lipase (8-78) U/L Urine Color [place] A Urine Appearance Turbid Urine pH 5.5 (5.0-9.0) Ur Specific [place] 1.025 (1.005-1.025) Urine Protein 100 (2+) H (Neg-Trace) mg/dL Urine Glucose (UA) Negative (Negative) mg/dL Urine Ketones 15 (Negative) mg/dL Urine Blood Large (3+) H (Negative) Urine Nitrite Negative (Negative) Ur Leukocyte Esterase Small (1+) H (Negative) Urine RBC >20 H (0-2) /HPF Urine WBC >50 H (0-5) /HPF Ur Squamous Epith Cells 6-10 (0-2) /HPF Urine Bacteria None Seen (None Seen) Hyaline Casts 11-20 (0-2) /LPF Urine Opiates Screen Not Detected (Not Detect) Urine Fentanyl Screen Not Detected (Not Detect) Ur Barbiturates Screen Not Detected (Not Detect) Ur Phencyclidine Scrn Not Detected (Not Detect) Ur Amphetamines Screen Not Detected (Not Detect) U Benzodiazepines Scrn Not Detected (Not Detect) Urine Cocaine Screen Not Detected (Not Detect) U Marijuana (THC) Screen Not Detected (Not Detect) Ethyl Alcohol mg/dL Influenza Type A (PCR) NEGATIVE (Negative) Influenza Type B (PCR) NEGATIVE (Negative) RSV RNA Qual (PCR) POSITIVE A (Negative) SARS-CoV-2 RNA (RT-PCR) NEGATIVE (Negative) 07/08/23 07/09/23 07/09/23 Range/Units 16:44 00:13 00:19 WBC 10.2 (4.8-10.8) X10*3/uL RBC 5.21 (4.60-5.80) X10*6/uL Hgb 15.8 (14.0-18.0) g/dl Hct 48.0 (42.0-52.0) % MCV 92.1 (80.0-98.0) fL MCH 30.3 (27.0-33.0) pg MCHC 32.9 (31.0-36.0) g/dl RDW 12.3 (11.0-16.0) % Plt Count 286 D (160-400) X10*3/uL MPV 9.3 L (9.4-12.4) fL Immature Gran % (Auto) 0.3 (0.0-0.4) % Neut % (Auto) 79.5 H (45-73) % Lymph % (Auto) 11.3 L (20-40) % [place] % (Auto) 6.5 (2-11) % Eos % (Auto) 2.2 (0-4) % Baso % (Auto) 0.2 (0-2) % Lymph # (Auto) 1.2 (1.2-4.9) X10*3/uL [place] # (Auto) 0.7 (0.1-1.2) X10*3/uL Eos # (Auto) 0.2 (0.0-0.4) X10*3/uL Baso # (Auto) 0.0 (0.0-0.2) X10*3/uL Abs Immat Gran (auto) 0.03 (0.00-0.03) X10*3/uL Absolute Neuts (auto) 8.1 (2.0-8.3) x10*3/uL Absolute Nucleated RBC 0.000 (0.0-0.012) X10*3/uL Nucleated RBC % (auto) 0.0 (0.0-0.2) /100WBC Sodium 142 (135-145) mmol/L Potassium 4.7 (3.3-5.1) mmol/L Chloride 102 (96-108) mmol/L Carbon Dioxide 30 H (22-29) mmol/L Anion Gap 15 (12-20) BUN 20 H (9-16) mg/dL Creatinine 0.82 (0.5-1.4) mg/dL Estim Creat Clear Calc 78.1 Estimated GFR > 60 POC Glucose 143 H 104 (60-115) mg/dL Random Glucose 93 (60-115) mg/dL Calcium 10.0 (8.4-10.2) mg/dL Magnesium (1.6-2.6) mg/dL Total Bilirubin 0.3 (0.0-1.0) mg/dL Direct Bilirubin (0.0-0.5) mg/dL AST 29 (5-37) U/L ALT 16 (0-40) U/L Alkaline Phosphatase 95 (39-117) U/L Ammonia (13-55) umol/L Total Creatine Kinase 41 (38-174) U/L Troponin I High Sens (<3.5-35.0) ng/L Total Protein 8.4 H (6.5-8.0) g/dL Albumin 3.9 (3.5-5.0) g/dL Lipase (8-78) U/L Urine Color Urine Appearance Urine pH (5.0-9.0) Ur Specific [place] (1.005-1.025) Urine Protein (Neg-Trace) mg/dL Urine Glucose (UA) (Negative) mg/dL Urine Ketones (Negative) mg/dL Urine Blood (Negative) Urine Nitrite (Negative) Ur Leukocyte Esterase (Negative) Urine RBC (0-2) /HPF Urine WBC (0-5) /HPF Ur Squamous Epith Cells (0-2) /HPF Urine Bacteria (None Seen) Hyaline Casts (0-2) /LPF Urine Opiates Screen (Not Detect) Urine Fentanyl Screen (Not Detect) Ur Barbiturates Screen (Not Detect) Ur Phencyclidine Scrn (Not Detect) Ur Amphetamines Screen (Not Detect) U Benzodiazepines Scrn (Not Detect) Urine Cocaine Screen (Not Detect) U Marijuana (THC) Screen (Not Detect) Ethyl Alcohol mg/dL Influenza Type A (PCR) (Negative) Influenza Type B (PCR) (Negative) RSV RNA Qual (PCR) (Negative) SARS-CoV-2 RNA (RT-PCR) (Negative) 07/09/23 07/10/23 Range/Units 07:26 11:36 WBC (4.8-10.8) X10*3/uL RBC (4.60-5.80) X10*6/uL Hgb (14.0-18.0) g/dl Hct (42.0-52.0) % MCV (80.0-98.0) fL MCH (27.0-33.0) pg MCHC (31.0-36.0) g/dl RDW (11.0-16.0) % Plt Count (160-400) X10*3/uL MPV (9.4-12.4) fL Immature Gran % (Auto) (0.0-0.4) % Neut % (Auto) (45-73) % Lymph % (Auto) (20-40) % [place] % (Auto) (2-11) % Eos % (Auto) (0-4) % Baso % (Auto) (0-2) % Lymph # (Auto) (1.2-4.9) X10*3/uL [place] # (Auto) (0.1-1.2) X10*3/uL Eos # (Auto) (0.0-0.4) X10*3/uL Baso # (Auto) (0.0-0.2) X10*3/uL Abs Immat Gran (auto) (0.00-0.03) X10*3/uL Absolute Neuts (auto) (2.0-8.3) x10*3/uL Absolute Nucleated RBC (0.0-0.012) X10*3/uL Nucleated RBC % (auto) (0.0-0.2) /100WBC Sodium (135-145) mmol/L Potassium (3.3-5.1) mmol/L Chloride (96-108) mmol/L Carbon Dioxide (22-29) mmol/L Anion Gap (12-20) BUN (9-16) mg/dL Creatinine (0.5-1.4) mg/dL Estim Creat Clear Calc Estimated GFR POC Glucose 90 (60-115) mg/dL Random Glucose (60-115) mg/dL Calcium (8.4-10.2) mg/dL Magnesium (1.6-2.6) mg/dL Total Bilirubin (0.0-1.0) mg/dL Direct Bilirubin (0.0-0.5) mg/dL AST (5-37) U/L ALT (0-40) U/L Alkaline Phosphatase (39-117) U/L Ammonia (13-55) umol/L Total Creatine Kinase (38-174) U/L Troponin I High Sens (<3.5-35.0) ng/L Total Protein (6.5-8.0) g/dL Albumin (3.5-5.0) g/dL Lipase (8-78) U/L Urine Color Dark Yellow Urine Appearance Clear Urine pH 5.5 (5.0-9.0) Ur Specific [place] 1.025 (1.005-1.025) Urine Protein Negative (Neg-Trace) mg/dL Urine Glucose (UA) Negative (Negative) mg/dL Urine Ketones 15 (Negative) mg/dL Urine Blood Moderate (2+) H (Negative) Urine Nitrite Negative (Negative) Ur Leukocyte Esterase Negative (Negative) Urine RBC 3-5 H (0-2) /HPF Urine WBC 0-5 (0-5) /HPF Ur Squamous Epith Cells 0-2 (0-2) /HPF Urine Bacteria None Seen (None Seen) Hyaline Casts 0-2 (0-2) /LPF Urine Opiates Screen (Not Detect) Urine Fentanyl Screen (Not Detect) Ur Barbiturates Screen (Not Detect) Ur Phencyclidine Scrn (Not Detect) Ur Amphetamines Screen (Not Detect) U Benzodiazepines Scrn (Not Detect) Urine Cocaine Screen (Not Detect) U Marijuana (THC) Screen (Not Detect) Ethyl Alcohol mg/dL Influenza Type A (PCR) (Negative) Influenza Type B (PCR) (Negative) RSV RNA Qual (PCR) (Negative) SARS-CoV-2 RNA (RT-PCR) (Negative) Independent Interpretation I performed an independent interpretation of an: EKG Radiology Impression Discussion of test interpretation with radiology: I have reviewed the radiologist's reading. Independent Historian Clinical information obtained from an independent historian. History obtained from or confirmed by: Spouse External Record Review External record reviewed: Inpatient record, Office record, Outpatient record, Prior outpatient labs, Prior outpatient radiology, Primary care record and Outside ED record Tests considered The following testing was considered but not selected: As above Chronic Conditions Patient?s care impacted by: Other Discharge Plan Discharge Clinical Impression: Cognitive impairment, Failure to thrive in adult, RSV infection Patient Disposition: Still a Patient Prescriptions: No Action aripiprazole [Abilify] 5 mg Tablet 5 mg PO DAILY@1600 30 Days Qty: 30 0RF levothyroxine 75 mcg tablet 75 mcg PO DAILY 30 Days Qty: 30 0RF simvastatin 20 mg tablet 20 mg PO BEDTIME 30 Days Qty: 30 0RF sertraline 50 mg tablet 175 mg PO DAILY mirtazapine 15 mg tablet 15 mg PO BEDTIME Referrals: [facility] [Outside]
--- NOTE | 2023-06-29 12:05 | ECG_ITS ---
Test Reason : WEAKNESS Blood Pressure : / mmHG Vent. Rate : 086 BPM Atrial Rate : 086 BPM P-R Int : 114 ms QRS Dur : 136 ms QT Int : 412 ms P-R-T Axes : 062 054 022 degrees QTc Int : 493 ms Sinus rhythm with Premature atrial complexes with Aberrant conduction Right bundle branch block Abnormal ECG When compared with ECG of 15-JAN-2022 15:43, Aberrant conduction is now Present Right bundle branch block has replaced Incomplete right bundle branch block Referred By: Cesar Lorenzo Electronically Signed By:Kaushik Garcia
--- NOTE | 2023-06-29 12:33 | PC.NURSE ---
a&ox3 but seems somewhat pleasantly/confused/lethargic. vss and up to date. pt presents to ED w/ d/t generalized weakness/feeling lethargic x few days. per pt's - pt has had an increase in weight loss/acting bizarrely/performing differently than usual. pt verbalizes feeling off/depressed. denies SI/HI. per pt's - pt has had auditory hallucinations where someone has stated that they are coming to the house to kill him. pt denies these statements. ekg performed by tech. 20gIV placed in the left forearm w/o difficulty - labs drawn and sent to lab. access wrapped w/ gauze d/t safety precautions. bedside for support.
[2023-06-29 12:34] LABS: MANUAL DIFF FLAG NO
[2023-06-29 12:36] LABS: Basophils Percent Auto 0.1 % (0-2); Eosinophils Percent Auto 0.2 % (0-4); Hemoglobin 13.5 g/dl (14.0-18.0); Imm Gran Abs Auto 0.02 X10*3/uL (0.00-0.03); Imm Gran Pct Auto 0.2 % (0.0-0.4); Lymphocytes Absolute Auto 0.7 X10*3/uL (1.2-4.9); Lymphocytes Percent Auto 8.1 % (20-40); Mean Corpuscular HGB Conc 32.9 g/dl (31.0-36.0); Mean Corpuscular Hemoglobin 30.6 pg (27.0-33.0); Mean Platelet Volume 9.3 fL (9.4-12.4); Monocytes Absolute Auto 0.6 X10*3/uL (0.1-1.2); Monocytes Percent Auto 6.3 % (2-11); Neutrophils Absolute Auto 7.4 x10*3/uL (2.0-8.3); Neutrophils Percent Auto 85.1 % (45-73); Platelet Count 195 X10*3/uL (160-400); Red Blood Count 4.41 X10*6/uL (4.60-5.80); Red Cell Distribution Width 12.9 % (11.0-16.0); White Blood Count 8.7 X10*3/uL (4.8-10.8)
[2023-06-29 12:53] LABS: Ethanol < 10 mg/dL
--- NOTE | 2023-06-29 12:56 | PC.NURSE ---
attempted to obtain urine sample - pt ambulate to bathroom w/ slow/steady gait. no assistive devices used. unable to urinate at this time. will try again later.
[2023-06-29 13:02] LABS: Troponin-I High Sensitivity 5.4 ng/L (<3.5-35.0)
[2023-06-29 13:16] LABS: Alanine Aminotransferase 20 U/L (0-40); Albumin Level 4.1 g/dL (3.5-5.0); Alkaline Phosphatase 85 U/L (39-117); Anion Gap 17 (12-20); Aspartate Amino Transferase 35 U/L (5-37); Bilirubin Direct 0.2 mg/dL (0.0-0.5); Bilirubin Total 0.5 mg/dL (0.0-1.0); Blood Urea Nitrogen 30 mg/dL (9-16); Calcium 9.7 mg/dL (8.4-10.2); Carbon Dioxide 25 mmol/L (22-29); Chloride 101 mmol/L (96-108); Creatinine Clr Calc Pharmacy 57.1; Estimated Glomerular Filt Rate > 60; Glucose Random 109 mg/dL (60-115); Lipase 13 U/L (8-78); Sodium 139 mmol/L (135-145); Total Protein 8.2 g/dL (6.5-8.0)
--- NOTE | 2023-06-29 13:31 | PC.NURSE ---
pt spoke w/ ED provider. pt/ aware of plan of care at this time - awaiting CT scan to be performed. respirations remain even/unlabored.
--- NOTE | 2023-06-29 14:03 | PC.NURSE ---
Tato Gomez () cell [phone]
--- NOTE | 2023-06-29 14:06 | PC.NURSE ---
labs obtained and sent to lab.
[2023-06-29 14:15] LABS: Ammonia 30 umol/L (13-55)
[2023-06-29 14:34] VITALS: BP 129/62; PULSE 78; RESP 16; TEMP 37.4; O2SAT 92
[2023-06-29 15:14] VITALS: TEMP 37.9
[2023-06-29] MEDS: 0.9 % Sodium Chloride 1,000 ML 999 ML IV (15:14)
[2023-06-29] MEDS: Lidocaine HCl 2 % Urojet 10 ML JEL.PF.APP TOPICAL (15:21)
[2023-06-29] MEDS: Acetaminophen 325 MG TABLET 650 MG PO (15:21)
--- NOTE | 2023-06-29 15:42 | PC.NURSE ---
pt moved to 17H due to increase in rectal temp/needing to be straight cath'd. 1st straight cath attempted - unsuccessful/coiled. 2nd time attempted w/ 16Fr coude/urojet - unsuccessful d/t coiling. Kecia Haile RN attempted as well - unsuccessful. Tylenol administered PO - will reassess rectal temp. resting comfortably in bed in no apparent distress. pt seemingly lethargic.
--- NOTE | 2023-06-29 16:23 | PC.NURSE ---
reassessed pt for effectiveness of tylenol on fever. rectal temp 99.2. pt found to be incontinent of urine. sts he does not remember going to the bathroom. appears to have gone when he fell asleep. full bed changed performed by t/w and bailee Dennis. [place] cath placed on pt. awaiting void for ua/tox screen. pt pleasant and resting quietly on stretcher in no apparent distress. pt offers no complaints other than pain to groin area from previous catheter trials. rr even/unlabored. call willett within pt reach. plan of care ongoing.
[2023-06-29 18:25] LABS: Troponin-I High Sensitivity 8.3 ng/L (<3.5-35.0)
[2023-06-29 18:37] LABS: Influenza A PCR NEGATIVE (Negative); Influenza B PCR NEGATIVE (Negative); Resp Syncy Virus RNA Qual PCR POSITIVE (Negative); SARS COV2 PCR INHOUSE NEGATIVE (Negative)
[2023-06-29 19:29] VITALS: BP 135/59; PULSE 78; RESP 18; TEMP 36.7; O2SAT 95
--- NOTE | 2023-06-29 19:30 | PC.NURSE ---
ASSUMED CARE OF PT
[2023-06-29 19:34] LABS: Appearance Urine Turbid; Color Urine Orange; Glucose Urine UA Negative (Negative); Leukocyte Esterase Urine Small (1+) (Negative); Nitrite Urine Negative (Negative); PH 5.5 (5.0-9.0); Specific Gravity - Urine 1.025 (1.005-1.025); UMIC TRIGGER UACC YES; Urine Blood Large (3+) (Negative); Urine Ketones 15 mg/dL (Negative); Urine Protein 100 (2+) mg/dL (Neg-Trace)
[2023-06-29 19:41] LABS: Amphetamine Screen Urine Not Detected (Not Detect); Barbiturates, Urine Not Detected (Not Detect); Benzodiazepines Screen Urine Not Detected (Not Detect); Cannabinoid Screen Urine Not Detected (Not Detect); Cocaine Screen Urine Not Detected (Not Detect); Fentanyl, urine Not Detected (Not Detect); Opiate Screen Urine Not Detected (Not Detect); Phencyclidine Screen Urine Not Detected (Not Detect)
[2023-06-29 19:56] LABS: Bacteria Urine None Seen (None Seen); RBC Urine >20 /HPF (0-2); UACC Culture Trigger YES; WBC Urine >50 /HPF (0-5)
[2023-06-29] MEDS: cefuroxime axetiL 250 MG TABLET PO (20:35)
[2023-06-29 21:43] VITALS: BP 142/76; PULSE 60; RESP 16; TEMP 36.8; O2SAT 96
[2023-06-30] VITALS (8 sets, daily range): BP systolic 105–178; BP diastolic 54–76; PULSE 61–76; RESP 16–22; TEMP 36.5–37.1; O2SAT 95–96
--- NOTE | 2023-06-30 05:56 | PC.NURSE ---
called pharmacy to complete med rec
[2023-06-30] MEDS: cefuroxime axetiL 250 MG TABLET PO ×2 (09:29→23:26)
--- NOTE | 2023-06-30 11:30 | PC.NURSE ---
new pad/lis care as pt urinary incontinence. pt removing [place] cath- at this time deferring use. new sarah gown given
--- NOTE | 2023-06-30 14:18 | MHC.CARE ---
[facility] Bed[facility] conducted, unfortunately no beds avaiable statewide- RAD Team will continue bedsearch tomorrow if deemed necessary
--- NOTE | 2023-06-30 14:31 | PC.NURSE ---
called pharmacy to inquire about status of med rec- pharmacist states pharmacy will complete it
--- NOTE | 2023-06-30 16:28 | PHA.MEDREC ---
Pharmacy Consult ? Medication Reconciliation Pharmacy has reviewed the medication reconciliation completed by Debora. Lurdes Blackwell, PharmD
--- NOTE | 2023-06-30 19:48 | MHC.EDTECH ---
Patient given dinner tray
--- NOTE | 2023-06-30 19:52 | MHC.EDTECH ---
Patient inc/ patient changed and repositioned
--- NOTE | 2023-06-30 20:00 | PC.NURSE ---
Assumed care of pt at 1900. This Rn spoke with pt to provide update. Referral for [facility] placed statewide. is planning to visit tomorrow.
--- NOTE | 2023-06-30 22:34 | MHC.EDTECH ---
Patient inc/patient cleaned and pull up applied
[2023-07-01 05:48] VITALS: BP 173/68; PULSE 71; RESP 16; TEMP 36.7; O2SAT 95
--- NOTE | 2023-07-01 07:00 | PC.NURSE ---
Assumed care of pt at this time. All safety measures in place.
--- NOTE | 2023-07-01 07:01 | PC.NURSE ---
notified provider about elevated bp
[2023-07-01] MEDS: cefuroxime axetiL 250 MG TABLET PO ×2 (09:09→21:42)
[2023-07-01 09:11] VITALS: BP 178/80; PULSE 64; RESP 18; O2SAT 95
[2023-07-01 11:23] VITALS: BP 157/80; PULSE 92; RESP 16; TEMP 36.7; O2SAT 94
--- NOTE | 2023-07-01 11:24 | PC.NURSE ---
pt ambulated to restroom w/ steady gait. no difficulties noted. pt has no complaints at this time. vss and up to date. respirations even and unlabored. eating breakfast. pt continues to wait for bed search at this time. call willett placed within reach.
--- NOTE | 2023-07-01 12:42 | PC.NURSE ---
pt speaking w/ CARE team at this time.
--- NOTE | 2023-07-01 13:17 | MHC.CARE ---
[facility] Bed[facility] conducted, unfortunately no beds avaiable statewide- RAD Team will continue bedsearch tomorrow if deemed necessary
[2023-07-01 14:24] VITALS: BP 175/76; PULSE 73; RESP 13; TEMP 36.4; O2SAT 94
--- NOTE | 2023-07-01 14:51 | PC.NURSE ---
pt's called asking for status update on pt - this RN spoke w/ and let her know plan of care at this time.
--- NOTE | 2023-07-01 15:34 | PC.NURSE ---
pt seems to be more confused at this time. pt seemingly lethargic/weak. when attempting to stand pt up - he was unsteady on his feet/had difficulty following commands. pt also incontinent of urine - new bedding/pads applied. pt changed into clean hospital attire. [place] condom applied to pt. pt continues to rest in no apparent distress. respirations remain even/unlabored. call willett placed within reach.
[2023-07-01] MEDS: Levothyroxine Sodium 75 MCG TABLET PO (17:36)
[2023-07-01] MEDS: Sertraline HCL 50 MG TABLET 175 MG PO (17:36)
--- NOTE | 2023-07-01 17:39 | PC.NURSE ---
vss and up to date at this time. pt has no complaints/denies pain. medication verified by previous RN - medication ordered by provider. medications now administered at this time. respirations remain even and unlabored. pt calm/cooperative/resting in no apparent distress. call willett placed within reach.
[2023-07-01 17:40] VITALS: BP 153/71; PULSE 63; RESP 16; O2SAT 95
[2023-07-01 20:43] VITALS: BP 175/82; PULSE 93; RESP 16; TEMP 36.9; O2SAT 91
[2023-07-01] MEDS: Mirtazapine 15 MG TABLET PO (21:42)
[2023-07-01] MEDS: Atorvastatin Calcium 10 MG TABLET PO (21:42)
--- NOTE | 2023-07-01 21:57 | PC.NURSE ---
pt resting comfortably in bed. medicated per SEP. no complaints or needs at this time
--- NOTE | 2023-07-02 01:27 | PC.NURSE ---
pt resting comfortably with eyes closed, breathing even and unlabored. no apparent distress noted at this time, call willett within reach
--- NOTE | 2023-07-02 04:44 | MHC.EDTECH ---
Patient removed [place] cath. His lines and gown were wet, he was cleaned up and changed into a new green amalia and pants. A new [place] cath was placed and attached to a leg bag that was placed on his left leg.
[2023-07-02 06:11] VITALS: BP 152/74; PULSE 69; TEMP 36.4; O2SAT 93
[2023-07-02] MEDS: Levothyroxine Sodium 75 MCG TABLET PO (06:18)
[2023-07-02] MEDS: Sertraline HCL 50 MG TABLET 175 MG PO (08:26)
[2023-07-02] MEDS: cefuroxime axetiL 250 MG TABLET PO ×2 (08:27→21:31)
--- NOTE | 2023-07-02 08:29 | PC.NURSE ---
patient awake/alert to person/place, vitals have remained stable, condom cath patient/draining to lt leg bag, pt took meds whole with water, eating breakfast, call willett within reach, will continue to monitor
[2023-07-02 09:59] VITALS: BP 146/71; PULSE 111; RESP 16; TEMP 36.7
--- NOTE | 2023-07-02 10:56 | PC.NURSE ---
pt ambulated to bathroom, condom cath was self removed by patient and patient was also incontinent in bed prior to going to bathroom. pt requesting briefs- this nurse attempting to obtain briefs for this patient, pt currently not complaining of pain or discomfort, call willett within reach, will continue to monitor.
--- NOTE | 2023-07-02 12:31 | PC.NURSE ---
patient alert to person aware he is at the hospital, ambulates to the bathroom stby assist, pt is impulsive at times but easily re-directable,will obtain a bed with bed alarm for increased patient safety, pt denies si/hi, call willett within reach, will continue to monitor
[2023-07-02 14:00] VITALS: BP 110/57; PULSE 84; RESP 16; TEMP 36.7; O2SAT 94
--- NOTE | 2023-07-02 15:20 | PC.NURSE ---
patient alert to person at times place, no c/o pain or discomfort, vss, bed alarm on, pt has 1:1 sitter at bedside for safety- pt ambulates to bathroom with stby assist, call willett within reach, will continue to monitor
--- NOTE | 2023-07-02 15:55 | MHC.CARE ---
Pt was declined by CM & Dr. Knapp due to RSV positive result. RAD Team conducted an external statewide bedsearch but unfortunately there are no beds available. The search will continue tomorrow if deemed appropriate.
[2023-07-02] MEDS: ARIPiprazole 5 MG TABLET PO (16:54)
[2023-07-02 20:42] VITALS: BP 118/62; PULSE 74; RESP 16; TEMP 37.2; O2SAT 94
[2023-07-02] MEDS: Atorvastatin Calcium 10 MG TABLET PO (21:31)
[2023-07-02] MEDS: Mirtazapine 15 MG TABLET PO (21:31)
--- NOTE | 2023-07-02 21:38 | PC.NURSE ---
PT sitting up in bed watching televsion. Took evening meds whole with water. Oriented to self only. Call willett within reach, plan of care ongoing.
[2023-07-03 05:55] VITALS: BP 157/86; PULSE 82; RESP 14; TEMP 36.3; O2SAT 96
[2023-07-03] MEDS: Sertraline HCL 50 MG TABLET 175 MG PO (10:20)
[2023-07-03] MEDS: cefuroxime axetiL 250 MG TABLET PO ×2 (10:22→21:55)
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
[2023-07-03 14:00] VITALS: BP 164/80; PULSE 86; RESP 16; TEMP 36.1; O2SAT 96
--- NOTE | 2023-07-03 14:20 | MHC.CARE ---
RAD Team conducted an external statewide bedsearch but unfortunately there are no beds available for RSV+ pt. The search will continue tomorrow if deemed appropriate.
--- NOTE | 2023-07-03 14:39 | PC.NURSE ---
Per Lucila Delacruz ADULT BASIC EDUCATION TEACHER, verbal order given to discontinue the 1:1 sitter.
[2023-07-03] MEDS: ARIPiprazole 5 MG TABLET PO (17:48)
--- NOTE | 2023-07-03 17:59 | PC.NURSE ---
patient has attempted to get up out of bed multiple times since sitter left. bed alarm is on and he does redirect quite easily. He is very weak and is a fall risk. changed his wet brief and did lis care after he attempted to use urinal, he did not void at this time.
[2023-07-03] MEDS: Mirtazapine 15 MG TABLET PO (21:55)
[2023-07-03] MEDS: Atorvastatin Calcium 10 MG TABLET PO (21:55)
[2023-07-03 22:00] VITALS: BP 153/99; PULSE 71; RESP 16; TEMP 36.8; O2SAT 95
--- NOTE | 2023-07-04 03:44 | PC.NURSE ---
Assumed care of PT at 1900. PT resting in bed, appearing to be sleeping. Respirations even and unlabored. 9pm medications administered as per SEP. PT swallowed whole with water without issue. Safety precautions in place, bed alarm on, call willett within reach. Plan of care ongoing.
--- NOTE | 2023-07-04 03:47 | PC.NURSE ---
PT transferred to main ED bed 18. handoff and report given to GUILLERMO Win.
--- NOTE | 2023-07-04 03:50 | PC.NURSE ---
Pt brought from overflow, in bed resting, fidgeting with mask. Camera placed in room, called vmt to notify.
--- NOTE | 2023-07-04 04:40 | MHC.EDTECH ---
Late Entry,031 Patient was brought from the overflow unit and this tech took over care,patient is dry and was repositioned to comfort,RESP. Rate WNL , Camera in room for safety and bed alarm on
[2023-07-04 05:55] VITALS: BP 149/78; PULSE 72; RESP 16; TEMP 36.6; O2SAT 96
[2023-07-04] MEDS: Levothyroxine Sodium 75 MCG TABLET PO (06:00)
--- NOTE | 2023-07-04 10:32 | MHC.CARE ---
RAD Team conducted an external statewide bedsearch but unfortunately there are no beds available for RSV+ pt. The search will continue tomorrow if deemed appropriate.
[2023-07-04] MEDS: cefuroxime axetiL 250 MG TABLET PO ×2 (10:51→20:11)
[2023-07-04] MEDS: Sertraline HCL 50 MG TABLET 175 MG PO (10:51)
[2023-07-04 13:01] VITALS: BP 144/91; PULSE 77; RESP 18; O2SAT 92
[2023-07-04 13:46] LABS: Influenza A PCR NEGATIVE (Negative); Influenza B PCR NEGATIVE (Negative); Resp Syncy Virus RNA Qual PCR POSITIVE (Negative); SARS COV2 PCR INHOUSE NEGATIVE (Negative)
--- NOTE | 2023-07-04 14:25 | PC.NURSE ---
ate a small amt of lunch, offers no complaints, has been calm, and pleasant with nad, skin wpd
[2023-07-04 15:24] VITALS: BP 127/79; PULSE 64; TEMP 36.6; O2SAT 95
--- NOTE | 2023-07-04 15:30 | PC.NURSE ---
this nurse assumed care of pt at 1500- pt rousable to verbal stimuli answering nurses questions appropriately. vss
[2023-07-04] MEDS: ARIPiprazole 5 MG TABLET PO (17:00)
[2023-07-04 17:01] VITALS: BP 151/56; PULSE 82; RESP 16; O2SAT 94
--- NOTE | 2023-07-04 17:03 | PC.NURSE ---
1600meds administered per SEP- pt continues to be drowsy, rousable to verbal/light tactile stimulii, denies pain, call willett within reach
--- NOTE | 2023-07-04 18:42 | PC.NURSE ---
pt redirected back into bed, SpO2 sticker replaced- pt changed, sat up in bed. pt resting quietly watching football call willett within reach
--- NOTE | 2023-07-04 19:10 | PC.NURSE ---
This RN took over pt assignment at 1900. Pt alert sitting up in bed eating dinner and watching tv. Plan of care ongoing.
--- NOTE | 2023-07-04 19:31 | PC.NURSE ---
Pt denies pain. Plan of care ongoing.
--- NOTE | 2023-07-04 19:31 | PC.NURSE ---
report given to GUILLERMO García Ed Overflow
[2023-07-04 20:07] VITALS: BP 134/65; PULSE 88; RESP 18; TEMP 36.3; O2SAT 93
[2023-07-04] MEDS: Mirtazapine 15 MG TABLET PO (20:11)
[2023-07-04] MEDS: Atorvastatin Calcium 10 MG TABLET PO (20:11)
[2023-07-05 06:00] VITALS: BP 166/82; PULSE 63; TEMP 36.3; O2SAT 93
[2023-07-05] MEDS: Levothyroxine Sodium 75 MCG TABLET PO (06:02)
[2023-07-05] MEDS: Sertraline HCL 50 MG TABLET 175 MG PO (08:47)
[2023-07-05] MEDS: cefuroxime axetiL 250 MG TABLET PO ×2 (08:47→21:33)
--- NOTE | 2023-07-05 09:28 | MHC.CARE ---
RAD Team conducted an external statewide bedsearch but unfortunately there are no beds available for RSV+ pt. The search will continue tomorrow if deemed appropriate.
[2023-07-05 14:00] VITALS: BP 180/81; PULSE 75; RESP 18; TEMP 36.3; O2SAT 95
--- NOTE | 2023-07-05 15:09 | PC.NURSE ---
pt eating lunch/po fluids. sitting w/o distress upright in bed. pt spoke w family on phone assisted by staff. precautions remain for rsv as indicated.
[2023-07-05 15:41] VITALS: BP 120/66; PULSE 68
--- NOTE | 2023-07-05 15:44 | PC.NURSE ---
spoke with aisha in pharm- sending dose of 1600 med as not in overflow pyxis
[2023-07-05] MEDS: ARIPiprazole 5 MG TABLET PO (15:58)
--- NOTE | 2023-07-05 17:36 | PC.NURSE ---
pt had small amount of meal tray. no distress. resting
[2023-07-05] MEDS: Mirtazapine 15 MG TABLET PO (21:33)
[2023-07-05] MEDS: Atorvastatin Calcium 10 MG TABLET PO (21:33)
[2023-07-05 22:00] VITALS: BP 140/67; PULSE 69; RESP 16; TEMP 36.5; O2SAT 94
--- NOTE | 2023-07-05 23:00 | PC.NURSE ---
PT medicated as per SEP. reports no pain. Safety precautions in place. Plan of care ongoing
[2023-07-06 05:44] VITALS: BP 157/68; PULSE 72; RESP 20; TEMP 36.1; O2SAT 93
[2023-07-06] MEDS: Levothyroxine Sodium 75 MCG TABLET PO (06:28)
[2023-07-06] MEDS: Sertraline HCL 50 MG TABLET 175 MG PO (10:16)
[2023-07-06] MEDS: cefuroxime axetiL 250 MG TABLET PO (10:16)
--- NOTE | 2023-07-06 10:23 | PC.NURSE ---
medicated per the MAR. offered to wash patient up for the day and reposition him, patient declined requesting to rest. respirations remain even and unlabored, call willett within reach.
[2023-07-06 16:18] VITALS: BP 157/89; PULSE 71; RESP 16; TEMP 36.9; O2SAT 97
--- NOTE | 2023-07-06 17:03 | PC.NURSE ---
patient refused medication, stating I don't want anything, I'm sick . refusing dinner at this time as well, will attempt to feed again.
--- NOTE | 2023-07-06 17:55 | MHC.EDTECH ---
This pct assumed care of Pt vitals taken ,Pt took 1 bite of dinner,And said he does not want any more to eat .
[2023-07-06 20:00] VITALS: BP 158/77; PULSE 62; RESP 16; TEMP 36.7; O2SAT 95
[2023-07-06] MEDS: Mirtazapine 15 MG TABLET PO (21:01)
[2023-07-06] MEDS: Atorvastatin Calcium 10 MG TABLET PO (21:01)
--- NOTE | 2023-07-06 21:24 | MHC.EDTECH ---
PATIENT WAS INCONTINENT OF URINE ,BED BATH GIVEN ,VITALS TAKEN ,SNACK OFFER ,PATIENT REFUSED ,PATIENT RESTING QUIETLY IN BED ,CALL DAVILA WITHIN PT REACH ,AND BED ALARM ON BED .
[2023-07-07 06:00] VITALS: BP 171/78; PULSE 76; RESP 17; TEMP 36.5; O2SAT 95
[2023-07-07] MEDS: Levothyroxine Sodium 75 MCG TABLET PO (09:39)
[2023-07-07] MEDS: Sertraline HCL 50 MG TABLET 175 MG PO (09:39)
[2023-07-07 11:55] LABS: Glucose, Whole Blood 107 mg/dL (60-115)
--- NOTE | 2023-07-07 12:23 | MHC.EDTECH ---
patient was clean.
--- NOTE | 2023-07-07 12:47 | MHC.CARE ---
CARE Team attempted to calls Pts partner multiple times- no answer at this time.
[2023-07-07 15:00] VITALS: BP 137/78; PULSE 83; RESP 18; TEMP 36.6; O2SAT 98
--- NOTE | 2023-07-07 15:46 | PC.NURSE ---
Spoke with DOMI Deutsch regarding patient, no beds available today for patient but she will reevaluated patient tomorrow.
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
[2023-07-07] MEDS: ARIPiprazole 5 MG TABLET PO (17:16)
[2023-07-07 19:34] VITALS: BP 126/74; PULSE 100; RESP 20; TEMP 36.3; O2SAT 93
[2023-07-07] MEDS: Atorvastatin Calcium 10 MG TABLET PO (20:46)
[2023-07-07] MEDS: Mirtazapine 15 MG TABLET PO (20:46)
[2023-07-08] MEDS: Levothyroxine Sodium 75 MCG TABLET PO (05:41)
--- NOTE | 2023-07-08 05:46 | PC.NURSE ---
pt medicated per sep. bed alarm on camera at bedside.
[2023-07-08 06:24] VITALS: BP 164/86; PULSE 80; TEMP 36.4; O2SAT 95
--- NOTE | 2023-07-08 08:43 | PC.NURSE ---
assumed care of pt at 0700. pt awake, laying quietly in bed. pt refused breakfast sts he is not hungry. pt mouth very dry. encouraging fluids. call willett within reach. rr even/unlabored. bed alarm on and sitter camera in place for pt safety.
[2023-07-08] MEDS: Sertraline HCL 50 MG TABLET 175 MG PO (10:43)
--- NOTE | 2023-07-08 10:56 | PC.NURSE ---
medicated pt per sep. attempted to feed pt. pt tolerated most of yogurt. refused rest of tray. drank small amount of apple juice. pt just wants to rest, hob elevated. rr even/unlabored. plan of care ongoing. call willett within reach.
--- NOTE | 2023-07-08 13:13 | PC.NURSE ---
pt refusing to eat lunch. resting quietly in bed. pt is pleasantly confused. answer to everything is 1746 . when asking pt if he knows where he is, pt answered 1746.
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
--- NOTE | 2023-07-08 14:52 | MHC.CARE ---
Plan for Pt to be referred to CM . Pt no longer meets criteria for IPLOC. CARE Team reviewed with ITA Bustos. CARE Team gave verbal pass off ot CM.
--- NOTE | 2023-07-08 15:18 | PC.NURSE ---
pt incontinent of urine. hygiene performed by t/w and tech. pt changed into clean hospital gown. resting quietly in bed. bed alarm on for pt safety.
[2023-07-08 16:00] VITALS: BP 150/80; PULSE 72; RESP 16; TEMP 36.8; O2SAT 97
--- NOTE | 2023-07-08 16:30 | PC.NURSE ---
pt appears to be declining. refusing to eat or drink. when prompted with drink and straw, pt too weak to sip. Dr. Pham notified and aware.
--- NOTE | 2023-07-08 16:40 | MHC.EDTECH ---
THIS PCT CARE OF PT AT 1500 ,PATIENT WAS INCONTINENT OF URINE ,CARE GIVEN ,VITALS TAKEN ,PT NOT WANTING TO EAT OR DRINK ,RN AND PROVIDER AWARE ,MOUTH CARE DONE .
[2023-07-08 16:56] LABS: Glucose, Whole Blood 143 mg/dL (60-115)
[2023-07-08] MEDS: ARIPiprazole 5 MG TABLET PO (17:16)
--- NOTE | 2023-07-08 17:19 | PC.NURSE ---
pt appears to be declining. refusing to eat or drink. when prompted with drink and straw, pt too weak to sip. Dr. Pham notified and aware.
--- NOTE | 2023-07-08 17:57 | MHC.EDTECH ---
Patient was fed by this pct ate 5 bites of food refused to drink ,rn aware .
--- NOTE | 2023-07-08 17:58 | PC.NURSE ---
attempted to place IV and draw labs, pt stated ok . once placing IV, pt started to become agitated and refused care, telling t/w to stop, right now . t/w asked pt if he is refusing care, pt responded with yes . pt informed by t/w that he is likely not going to get better if he doesn't receive treatment. encouraged pt to drink fluids if not allowing for IV with fluids and pt refused again. ITA Talley notified.
--- NOTE | 2023-07-08 17:59 | MHC.EDTECH ---
Patient is refusing blood draw ,rn aware .
--- NOTE | 2023-07-08 19:19 | PC.NURSE ---
question for pt diet changed to puree or ground for mechanical issues when eating. spoke with FREDRICK Cedeño about swallow eval. awaiting order.
--- NOTE | 2023-07-08 20:15 | MHC.CM.ED ---
PT eval pending. Pt had PT eval on 06/29 which recommended home PT. Nursing staff reports patient refusing to eat, poor po. Labs were ordered, including an IV, which patient is refusing. CM and Primary nurse spoke with PA regarding request for speech/swallow eval and additional care team assessment since patient is refusing care and appears withdrawn. No referrals made pending PT evaluation. CM will follow for discharge planning.
[2023-07-08] MEDS: Mirtazapine 15 MG TABLET PO (20:28)
[2023-07-08] MEDS: Atorvastatin Calcium 10 MG TABLET PO (20:28)
--- NOTE | 2023-07-08 21:03 | MHC.EDTECH ---
LATE ENTRY ,EARLIER WHEN PROVIDING CARE ON PT THIS PCT NOTICE PATIENT HAD AN INDENT HENRY FROM LAYING ON HIS DENTURE ,RN WAS MADE AWARE .
[2023-07-08 21:35] VITALS: BP 166/69; PULSE 79; RESP 18; TEMP 37.1; O2SAT 96
[2023-07-09] VITALS (8 sets, daily range): BP systolic 135–188; BP diastolic 69–98; PULSE 71–86; RESP 15–16; TEMP 35.3–36.8; O2SAT 92–96
[2023-07-09 00:21] LABS: MANUAL DIFF FLAG NO
[2023-07-09 00:28] LABS: Basophils Percent Auto 0.2 % (0-2); Eosinophils Absolute Auto 0.2 X10*3/uL (0.0-0.4); Eosinophils Percent Auto 2.2 % (0-4); Hemoglobin 15.8 g/dl (14.0-18.0); Imm Gran Abs Auto 0.03 X10*3/uL (0.00-0.03); Imm Gran Pct Auto 0.3 % (0.0-0.4); Lymphocytes Absolute Auto 1.2 X10*3/uL (1.2-4.9); Lymphocytes Percent Auto 11.3 % (20-40); Mean Corpuscular HGB Conc 32.9 g/dl (31.0-36.0); Mean Corpuscular Hemoglobin 30.3 pg (27.0-33.0); Mean Corpuscular Volume 92.1 fL (80.0-98.0); Mean Platelet Volume 9.3 fL (9.4-12.4); Monocytes Absolute Auto 0.7 X10*3/uL (0.1-1.2); Monocytes Percent Auto 6.5 % (2-11); Neutrophils Absolute Auto 8.1 x10*3/uL (2.0-8.3); Neutrophils Percent Auto 79.5 % (45-73); Platelet Count 286 X10*3/uL (160-400); Red Blood Count 5.21 X10*6/uL (4.60-5.80); Red Cell Distribution Width 12.3 % (11.0-16.0); White Blood Count 10.2 X10*3/uL (4.8-10.8)
--- NOTE | 2023-07-09 00:30 | MHC.EDTECH ---
THIS PCT AND RN TAMIKO MANAGE TO GET PATIENT LABS ,PATIENT VERY AGITATED AND COMBATIVE ,NOT WANT TO BE BOTHER ,PATIENT BODY FELT COLD ,WE TOOK RECTAL TEMP IT WAS 95.5 ,BLOOD SUGAR CHECK IT WAS 104 ,PATIENT REFUSING BLOOD PRESSURE ,ATTEMPT TO DO BLADDER SCAN AND PATIENT TRYING TO HIT ,PATIENT DID HAVE SMALL AMOUNT OF LOOSE DARK BOWEL MOVEMENT ,CARE GIVEN ,WARM BLANKET GIVEN .
[2023-07-09 00:39] LABS: Glucose, Whole Blood 104 mg/dL (60-115)
[2023-07-09 00:43] LABS: Alanine Aminotransferase 16 U/L (0-40); Albumin Level 3.9 g/dL (3.5-5.0); Alkaline Phosphatase 95 U/L (39-117); Anion Gap 15 (12-20); Aspartate Amino Transferase 29 U/L (5-37); Bilirubin Total 0.3 mg/dL (0.0-1.0); Blood Urea Nitrogen 20 mg/dL (9-16); Carbon Dioxide 30 mmol/L (22-29); Chloride 102 mmol/L (96-108); Creatinine Clr Calc Pharmacy 78.1; Estimated Glomerular Filt Rate > 60; Glucose Random 93 mg/dL (60-115); Potassium 4.7 mmol/L (3.3-5.1); Sodium 142 mmol/L (135-145); Total Protein 8.4 g/dL (6.5-8.0)
[2023-07-09] MEDS: 0.9 % Sodium Chloride 1,000 ML 999 ML IV (01:20)
--- NOTE | 2023-07-09 01:37 | PC.NURSE ---
Addendum entered by Vikki Sanford RN 07/09/23 05:19: BP is elevated. Provided notified. Last BP is 189/89. Addendum entered by Vikki Sanford RN 07/09/23 02:36: 0230- pt IV fluids infused. No urine output. Bladder scanned for 114. Temp has improved 97.4 rectally. Incontinent with stoolx1. Original Note: pt has poor po intake. very resistive with care. agreed with IV insertion. Although in the mid process of insertion, pt tried to resist. IV insertion was successful. Labs drawn as well. Pts mildly hypothermic. warm blanket provided. Provider notified. Pt also given bolus of NS 1L. Pending urine collection.
--- NOTE | 2023-07-09 02:31 | MHC.EDTECH ---
AFTER BOLUS WAS GIVEN ,BLADDER SCAN TAKEN ,PT HAD 114 ML IN HIS BLADDER ,RN AWARE ,VITALS TAKEN ,PATIENT TEMP WAS CHECK ,RECTALLY ,AND IT WENT UP FROM 95.5 TO 97.4 ,FULL SETS OF VITALS TAKEN ,RN AWARE OF PT HIGH BP ,PT COMFORTABLE IS ALERT AND ORIENTED ,WARM BLANKET GIVEN ,PATIENT WENT BACK TO SLEEP .
--- NOTE | 2023-07-09 05:18 | MHC.EDTECH ---
ROUNDING DONE ,VITALS TAKEN ,RN AWARE OF PT HIGH BP ,PT WAS INCONTINENT OF URINE ,CARE GIVEN ,PT TRY TO THAT THIS PCT , PATIENT STATED I WILL HIT YOU IF YOU DONT LEAVE ME ALONE .
[2023-07-09 07:34] LABS: Glucose, Whole Blood 90 mg/dL (60-115)
--- NOTE | 2023-07-09 07:39 | PC.NURSE ---
PHYSICAL THERAPY AT BEDSIDE, PT AWARE OF PLAN OF CARE.
[2023-07-09] MEDS: Sertraline HCL 50 MG TABLET 175 MG PO (07:57)
[2023-07-09] MEDS: cefuroxime axetiL 250 MG TABLET PO ×3 (10:02→20:34)
--- NOTE | 2023-07-09 10:41 | PC.NURSE ---
PT IS A/O X 1 WITH CONFUSION NO SOB/PREETHI NOTED SPEAKS IN FULL SENTENCES. PT IS INCONTINENT OF URINE. 1:1 FEED. RECTAL TEMP 98.2
--- NOTE | 2023-07-09 10:42 | PC.NURSE ---
PT SAT UP IN RECLINER FOR BREAKFAST. CAMERA IN USE.
--- NOTE | 2023-07-09 11:42 | MHC.EDTECH ---
patient was washed up and was assisted from the recliner to the bed and ate breafast 25%. also had a complete bed change
--- NOTE | 2023-07-09 12:27 | MHC.CLN ---
patient didnt eat alot of lunch only had a few bites less than 25%
--- NOTE | 2023-07-09 13:46 | MHC.CM.ED ---
Patient remains in ER overflow. Repeat physical therapy eval completed. No skill found. Spoke with patient's , Tato via telephone at [phone]. Tato aware patient was cleared by Tanya poultryman and physical therapy. Patient can return home. Gregoriojamaica agreeable to discharge home. Tato and daughter will be in ER tomorrow 07/10 at 10am to transport patient home. Tato requesting [facility] referral for nursing. Tato agreeable to referral being broadcasted. Referral broadcasted in [facility]. Patient, Vesta Godwin RN and Sally JEAN BAPTISTE aware. Continue to monitor for d/c needs.
--- NOTE | 2023-07-09 13:54 | MHC.EDTECH ---
patient was incontinent of stool and urine i cleaned him and then he started to get aggravated when putting on his pullup and swinging his arms
--- NOTE | 2023-07-09 16:10 | PC.NURSE ---
pt sleeping, wakes to verbal stimulus, pt safety camera intact/bed alarm intact, RSV precautions maintained,when awake pt alert to person only, 1:1 feed-poor po intake, incontinent of urine/stool, pills whole with water, call willett within reach, will continue to monitor.
[2023-07-09] MEDS: ARIPiprazole 5 MG TABLET PO (17:12)
--- NOTE | 2023-07-09 19:42 | PC.NURSE ---
This RN took over pt assignment @ 1900 Pt resting comfortably in bed. Plan of care ongoing.
[2023-07-09] MEDS: Atorvastatin Calcium 10 MG TABLET PO (20:34)
[2023-07-09] MEDS: Mirtazapine 15 MG TABLET PO (20:35)
--- NOTE | 2023-07-09 20:43 | PC.NURSE ---
Pt medicated per sep. Plan of care ongoing.
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
--- NOTE | 2023-07-10 06:06 | PC.NURSE ---
Pt refused 0600 medication. Pt states I will take it later Plan of care ongoing.
[2023-07-10 06:13] VITALS: BP 166/83; PULSE 72; RESP 16; TEMP 36.4; O2SAT 94
[2023-07-10] MEDS: cefuroxime axetiL 250 MG TABLET PO (08:28)
[2023-07-10] MEDS: Sertraline HCL 50 MG TABLET 175 MG PO (08:28)
--- NOTE | 2023-07-10 08:44 | PC.NURSE ---
Alert and oriented, patient reminded that we need a urine sample, stating that he does not need to go at this time. po meds as ordered, ate well for breakfast
--- NOTE | 2023-07-10 08:45 | PC.NURSE ---
Patient requesting and given am levothroxyine dose that he declined a 6am this morning
--- NOTE | 2023-07-10 10:27 | PC.NURSE ---
Patient stating uanle to provide urine sample, provider aware, new order to straight cath, no urine obtained via straight cath- patient requesting for straight cath to be removed.
--- NOTE | 2023-07-10 11:33 | PC.NURSE ---
/ daughter at bedside raised concerns regarding discharge.Report they have not seen patient in a week and he seems more tired. Provider / case management aware. Provider Tanya came to bedside to assess patient and spoke with family. Urine obtained for UA via straight cath and sent to lab.
[2023-07-10 11:58] LABS: Appearance Urine Clear; Color Urine Dark Yellow; Glucose Urine UA Negative (Negative); Leukocyte Esterase Urine Negative (Negative); Nitrite Urine Negative (Negative); PH 5.5 (5.0-9.0); Specific Gravity - Urine 1.025 (1.005-1.025); UMIC TRIGGER UACC YES; Urine Blood Moderate (2+) (Negative); Urine Ketones 15 mg/dL (Negative); Urine Protein Negative (Neg-Trace)
[2023-07-10 12:09] LABS: Bacteria Urine None Seen (None Seen); Hyaline Casts Urine 0-2 /LPF (0-2); Squamous Epithelial Cell Urine 0-2 /HPF (0-2); WBC Urine 0-5 /HPF (0-5)
--- NOTE | 2023-07-10 13:03 | MHC.CM.ED ---
Patient remains in ER overflow. Patient's and daughter came to transport patient home and had concerns with patient's alertness and weakness. Poly Martínez NP aware and has decided to admit patient to psych. Continue to monitor for d/c needs.
[2023-07-10 13:18] LABS: COVID-19 Test Negative (Negative); IDNOW Serial# 9DB6401D
[2023-07-10 14:00] VITALS: BP 125/69; PULSE 76; RESP 16; TEMP 36.2; O2SAT 95
--- NOTE | 2023-07-10 16:08 | PC.NURSE ---
Report given to accpeting unit
--- NOTE | 2023-07-10 16:37 | PC.NURSE ---
Patient with no belongings in overflow, called to see if she took any belongings home. Unable to reach at this time. Transported by security and 2 RN`s to floor
[2023-07-10] MEDS: ARIPiprazole 5 MG TABLET PO (17:31)
[2023-07-10 17:38] VITALS: BP 136/72; PULSE 72; RESP 18; TEMP 36.3; O2SAT 96
--- NOTE | 2023-07-10 18:23 | PC.ADMIT ---
Addendum entered by Donna Carty RN 07/10/23 22:04: 2 assist with incontinence care. 2 assist with repositioning. Repositioned Q2H to prevent skin breakdown. 1:1 Feed. Pt gave verbal consent to speak with . updated on plan of care. Original Note: Pt admitted from [facility] at 1650. Pt admitted via wheelchair. Pt signed a CV. Pt initially placed on 5 minute safety checks d/t High fall risk but was placed on 1:1 d/t mental status and inability to request help if he wanted to get out of bed. Pt tested Positive for RSV on 07/04. negative for Covid. Legals were not signed d/t patient mental status. Admission completed by Evaluation & Assessment. Pt unable to answer questions appropriately or at all. Pt confused, disoriented. Only oriented to self. Vacant affect. Slow to respond and difficult to understand when he does. Poor eye contact. Pt was admitted after arriving to the ER with who reports increased confusion and paranoia. reports patient was reporting AH/VH to her prior to arrival. Pt with bizarre behaviors, loss of appetite, not tending to ADLs, and unable to care for self. Pt is normally independent at baseline for ambulation but is a 2 assist with transfers d/t weak and unsteady gait. Pt has had multiple falls prior to admission. Pt is chronically incontinent and uses briefs at home. Pt is currently wearing a brief. Started on ABX for UTI. Pt has had previous admission to . No reported HI or SI at this time. Pt does have a history of SI. Medications verified. Pt does have outside providers.
[2023-07-11] MEDS: Levothyroxine Sodium 75 MCG TABLET PO (06:22)
[2023-07-11 09:38] VITALS: BP 147/67; PULSE 81; RESP 16; TEMP 36.8; O2SAT 95
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
[2023-07-11 13:03] LABS: MANUAL DIFF FLAG NO
[2023-07-11 13:05] LABS: Basophils Percent Auto 0.2 % (0-2); Eosinophils Absolute Auto 0.1 X10*3/uL (0.0-0.4); Eosinophils Percent Auto 1.1 % (0-4); Hemoglobin 15.4 g/dl (14.0-18.0); Imm Gran Abs Auto 0.03 X10*3/uL (0.00-0.03); Imm Gran Pct Auto 0.3 % (0.0-0.4); Lymphocytes Absolute Auto 1.1 X10*3/uL (1.2-4.9); Lymphocytes Percent Auto 10.1 % (20-40); Mean Corpuscular HGB Conc 33.5 g/dl (31.0-36.0); Mean Corpuscular Hemoglobin 30.7 pg (27.0-33.0); Mean Corpuscular Volume 91.6 fL (80.0-98.0); Mean Platelet Volume 9.2 fL (9.4-12.4); Monocytes Absolute Auto 0.7 X10*3/uL (0.1-1.2); Monocytes Percent Auto 6.8 % (2-11); Neutrophils Absolute Auto 8.9 x10*3/uL (2.0-8.3); Neutrophils Percent Auto 81.5 % (45-73); Platelet Count 245 X10*3/uL (160-400); Red Blood Count 5.02 X10*6/uL (4.60-5.80); Red Cell Distribution Width 12.4 % (11.0-16.0)
[2023-07-11 13:15] LABS: Ammonia 22 umol/L (13-55)
[2023-07-11 13:22] LABS: Alanine Aminotransferase 10 U/L (0-40); Albumin Level 3.3 g/dL (3.5-5.0); Alkaline Phosphatase 99 U/L (39-117); Anion Gap 15 (12-20); Aspartate Amino Transferase 21 U/L (5-37); Bilirubin Total 0.3 mg/dL (0.0-1.0); Blood Urea Nitrogen 18 mg/dL (9-16); Calcium 9.8 mg/dL (8.4-10.2); Carbon Dioxide 30 mmol/L (22-29); Chloride 102 mmol/L (96-108); Estimated Glomerular Filt Rate > 60; Glucose Random 94 mg/dL (60-115); Potassium 3.8 mmol/L (3.3-5.1); Sodium 143 mmol/L (135-145); Total Protein 7.7 g/dL (6.5-8.0)
--- NOTE | 2023-07-11 15:01 | P.CONHOSP_ITS ---
History of Present Illness Data of Consult Service Date: 07/11/23 Primary Care Provider: Nishant Corral MD HPI Reason for consult: AMS, not eating, ?delirium Pt is a 77-year-old male with a PMH significant for?HLD, hypothyroidism, and depression previously admitted to [facility] [place] with ECT treatment who is admitted to psychiatry unit for progressive decompensation with bizarre behavior with past few weeks. Patient initially presented to the ED 06/29. reported patient had recently been eating less, losing weight, withdrawn, exhibiting bizarre behaviors (such as undressing inappropriately), hallucinating/hearing voices, and unable to perform yells (upper a microwave/cellphone. Workup in ED found patient to be positive for RSV and possibly positive for UTI. Patient was treated with cefuroxime and evaluated by the care team who suggested patient be admitted to a [facility] psychiatric unit. Patient was placed in physician observation while bed search was underway. ?During pt's stay he occasionally refused to eat or ate very little and refused meds. Apparently responded better to food if it was offered to him rather than just left bedside. Patient apparently was initially delirious, but eventually noted to be alert and oriented x4 and deemed to have capacity to make decisions for himself. Patient's mood bright and on 07/07 and 07 08, and after re-evaluation patient was set to be discharged home on 07/10/2023. However, when patient's family came to pick him they were concerned that he was altered and unable to take care of himself. Patient was then transferred to psychiatric unit here at the hospital. On the unit this morning patient was noted to be altered, unable to state his name, not eating or drinking or taking his medications. Medical consult was made for evaluation of metabolic/infectious etiology verses CVA versus psychiatric illness. Upon examination patient is somnolent but arousable to verbal stimuli, confused. Patient mumbles inarticulately when asked any question, and almost immediate falls back asleep. Unable to obtain HPI. Labs from today significant for mildly elevated wbc's at 11.0 otherwise grossly unremarkable. Stable H&H. Electrolytes WNL. Renal function baseline. Hepatic function baseline. UA from yesterday negative for UTI. Review of Systems 2 Review of Systems: Unable to obtain due to patient's mentation [facility] Medical History Depression Hypothyroidism Prostate cancer Depression HLD (hyperlipidemia) HTN (hypertension) Family History Other Prostate cancer Surgical History H/O prostatectomy History of hernia surgery Social History Household Members: Spouse Housing: House Do you presently have visiting nurse or other home services: No Unable to assess alcohol history related to: Unable to respond Alcohol intake: never Patient Tobacco Use Status: Former Tobacco user Tobacco use type: Cigarette Cigarette Packs Per Day: 1 Cigarettes Per Day: 20.0 Smoked in Last 30 Days: No e-Cigarette/Vaping Use: Never Used Patient Interested in Nicotine Replacement: No Patient Given Instructions on How to Stop Smoking: No (n/a) Second Hand Smoke Exposure: No Use of substances other than those prescribed or required for medical reasons: No Currently Displaying Signs/Symptoms of Drug Intoxication Withdrawal: No Advance Directives: No Advance Directives Information Provided: Yes Advance Directives Date on File: 01/29/22 Healthcare Proxy: Yes ( Lenora [phone]) Guardian: No Do you have thoughts of harming others: None Do you have a plan to hurt others: No Plan Recently lost weight without trying: Yes How much weight loss: Unsure Eating poorly because of decreased appetite: Yes Nutrition screen score: 5 Nutrition Risks: Poor intake 0-25% >4 days service: Yes ([employer]) Sexual orientation: Straight/Heterosexual Meds Allergies Allergy/AdvReac Type Severity Reaction Status Date / Time bee venom protein (honey bee) Allergy Severe Swelling Verified 06/29/23 12:07 Active Medications: Current Medications Acetaminophen (Acetaminophen 325 Mg Tablet) 650 mg PO Q6H PRN PRN Reason: Headache/Pain Mild Scale (1-3) Al Hydroxide/Mg Hydroxide (Magnesium Hydrox/Alum Hydrox 30 Ml Oral.Susp) 30 ml PO Q6H PRN PRN Reason: Heartburn/Nausea Aripiprazole (Aripiprazole 5 Mg Tablet) 5 mg PO DAILY@1600 SUJIT Last Admin: 07/10/23 17:31 Dose: 5 mg Atorvastatin Calcium (Atorvastatin Calcium 10 Mg Tablet) 10 mg PO BEDTIME [facility] Last Admin: 07/10/23 21:32 Dose: Not Given Lactated Ringer's (Lr) 1,000 mls @ 100 mls/hr IVCONT .Q10H [facility] Levothyroxine Sodium (Levothyroxine Sodium 75 Mcg Tablet) 75 mcg PO DAILY@0600 [facility] Last Admin: 07/11/23 06:22 Dose: 75 mcg Magnesium Hydroxide (Milk Of Magnesia 30 Ml Oral.Susp) 30 ml PO DAILY PRN PRN Reason: Constipation Mirtazapine (Mirtazapine 15 Mg Tablet) 15 mg PO BEDTIME [facility] Last Admin: 07/10/23 21:32 Dose: Not Given Nicotine Polacrilex (Nicotine Polacrilex 2 Mg Gum) 4 mg BUCCAL Q2H PRN PRN Reason: Nicotine Cravings Quetiapine Fumarate (Quetiapine Fumarate 25 Mg Tablet) 12.5 mg PO TID PRN PRN Reason: anxiety/agitation Sertraline HCl (Sertraline Hcl 50 Mg Tablet) 175 mg PO DAILY [facility] Last Admin: 07/11/23 12:21 Dose: Not Given Trazodone HCl (Trazodone Hcl 25 Mg Halftab) 25 mg PO BEDTIME MRX1 PRN PRN Reason: Insomnia Home Medications Medication Instructions Recorded Confirmed Last Taken Type mirtazapine 15 mg tablet 15 mg PO BEDTIME 10/09/22 06/30/23 Unknown History sertraline 50 mg tablet 175 mg PO DAILY 10/09/22 06/30/23 Unknown History Physical Exam 2 Vital Signs and Narrative: Vital Signs: Last Vital Signs Temp 98.2 F 07/11/23 09:38 Pulse 81 07/11/23 09:38 Resp 16 07/11/23 09:38 BP 147/67 H 07/11/23 09:38 Pulse Ox 95 07/11/23 09:38 O2 Del Method Room Air 07/11/23 09:38 BMI result Body Mass Index 21.9 Constitutional: Somnolent but arousable to verbal stimuli, but easily falls back asleep. Mumbles incoherently to questions, confused, capable of following a few simple commands. Pt thin, frail-looking. Mental Status: Confused, not oriented to person, place, time, or situation. Eyes: Pupils are equal, round, and reactive to light. Ear, Nose, and Throat: Oropharynx clear, mucous membranes moist. Ears and nose without deformities. Trachea midline. Respiratory: Clear to auscultation bilaterally. No wheezing, rales, or rhonchi. Cardiovascular: S1, S2 regular. No murmurs, rubs, or gallops. Gastrointestinal: Abdomen soft, non-tender, non-distended. Normal bowel sounds. Neurologic: Firmly squeezes left hand while much less so with right hand. Minor movement of left foot. Does not raise either leg when asked. Skin: Warm, dry. Musculoskeletal: No cyanosis or clubbing. Extremities: No edema. Results Labs 07/11/23 12:56 07/11/23 12:56 Labs: Laboratory Results - last 24 hr 07/11/23 12:56 MCV 91.6 MCH 30.7 MCHC 33.5 RDW 12.4 Plt Count 245 MPV 9.2 L Immature Gran % (Auto) 0.3 Neut % (Auto) 81.5 H Lymph % (Auto) 10.1 L [place] % (Auto) 6.8 Eos % (Auto) 1.1 Baso % (Auto) 0.2 Lymph # (Auto) 1.1 L [place] # (Auto) 0.7 Eos # (Auto) 0.1 Baso # (Auto) 0.0 Abs Immat Gran (auto) 0.03 Absolute Neuts (auto) 8.9 H Absolute Nucleated RBC 0.000 Nucleated RBC % (auto) 0.0 Anion Gap 15 Estim Creat Clear Calc 81.0 Estimated GFR > 60 Random Glucose 94 Calcium 9.8 Total Bilirubin 0.3 AST 21 ALT 10 Alkaline Phosphatase 99 Ammonia 22 Total Protein 7.7 Albumin 3.3 L Assessment and Plan (1) Major neurocognitive disorder: Status: Acute (2) Altered mental status: Status: Acute Plan Pt is a 77-year-old male with a PMH significant for?HLD, hypothyroidism, and depression previously admitted to [facility] with ECT treatment who is admitted to [facility] psychiatry unit for progressive decompensation with bizarre behavior with past few weeks. Altered mental status Unclear etiology: Infectious vs CVA vs psychiatric illness Labs reassuring, no acute metabolic or electrolyte abnormalities UA obtained yesterday, negative for UTI Will get CT of head and brain to r/o hemorrhagic stroke Will check respiratory panel, TSH Will place on maintenance fluids Thank you for allowing us to participate in the care of this patient. Will continue to follow along with you. Attending: Dr. Bonds
[2023-07-11 16:59] LABS: TSH reflex Free T4 2.49 uIU/mL (0.32-4.0)
[2023-07-11 18:00] VITALS: BP 138/79; PULSE 84; TEMP 36.6; O2SAT 96
[2023-07-11] MEDS: Lactated Ringers 1,000 ML 100 ML IVCONT (18:05)
[2023-07-12 06:00] VITALS: BP 111/76; PULSE 71; TEMP 36.6; O2SAT 100
[2023-07-12] MEDS: Levothyroxine Sodium 75 MCG TABLET PO (06:08)
[2023-07-12 07:50] LABS: Alanine Aminotransferase 9 U/L (0-40); Albumin Level 3.8 g/dL (3.5-5.0); Alkaline Phosphatase 99 U/L (39-117); Anion Gap 16 (12-20); Aspartate Amino Transferase 19 U/L (5-37); Bilirubin Total 0.4 mg/dL (0.0-1.0); Blood Urea Nitrogen 16 mg/dL (9-16); Calcium 9.5 mg/dL (8.4-10.2); Carbon Dioxide 28 mmol/L (22-29); Chloride 103 mmol/L (96-108); Creatinine Clr Calc Pharmacy 87.7; Estimated Glomerular Filt Rate > 60; Glucose Random 85 mg/dL (60-115); Magnesium 1.7 mg/dL (1.6-2.6); Potassium 3.5 mmol/L (3.3-5.1); Sodium 143 mmol/L (135-145); Total Protein 7.6 g/dL (6.5-8.0)
[2023-07-12] MEDS: Lactated Ringers 1,000 ML 100 ML IVCONT ×2 (10:26→20:10)
[2023-07-12 10:42] VITALS: BP 142/69; PULSE 89; RESP 16
[2023-07-12 10:51] LABS: Adenovirus PCR Not Detected (Not Detect.); Bordetella parapertussis PCR Not Detected (Not Detect.); Bordetella pertussis PCR Not Detected (Not Detect.); Chlamydia pneumoniae PCR Not Detected (Not Detect.); Coronavirus 229E PCR Not Detected (Not Detect.); Coronavirus HKU1 PCR Not Detected (Not Detect.); Coronavirus NL63 PCR Not Detected (Not Detect.); Coronavirus OC43 PCR Not Detected (Not Detect.); Human metapneumovirus PCR Not Detected (Not Detect.); Influenza A PCR Not Detected (Not Detect.); Influenza B PCR Not Detected (Not Detect.); Mycoplasma pneumoniae PCR Not Detected (Not Detect.); Parainfluenza 1 PCR Not Detected (Not Detect.); Parainfluenza 2 PCR Not Detected (Not Detect.); Parainfluenza 3 PCR Not Detected (Not Detect.); Parainfluenza 4 PCR Not Detected (Not Detect.); Rhino/Enterovirus PCR Not Detected (Not Detect.); SARS-CoV-2 PCR Not Detected (Not Detect.)
[2023-07-12 11:24] LABS: RSV PCR Detected (Not Detect.)
--- NOTE | 2023-07-12 11:40 | PM.EVENT ---
Event Note Date of Service: 07/12/23 Event Note: Follow-up for patient with altered mental status and question of delirium. Patient seen and evaluated at bedside, he appears somnolent, but arousable to verbal stimuli and much more alert and responsive. Patient is alert and oriented to self only, but able to answer questions appropriately and speak articulately in full sentences. Verbally agrees to try to eat and drink something later today. Patient denies any acute medical complaints at this time. Reports no shortness of breath or difficulty breathing. Denies chest pain/pressure, palpitations. Denies any pain or discomfort, only saying he feels ?tired?. Physical exam relatively benign. Lungs CTA, no cough appreciated during visit. Patient protecting his airway and no increased labor of breathing. No focal deficits noted. Patient capable of moving all extremities spontaneously, but global weakness noted. Labs drawn this morning unremarkable: Electrolytes WNL renal function WNL. Magnesium WNL. Liver function baseline. TSH WNL at 2.49. Full respiratory panel still pending, but patient continues to test positive for RSV. Will recheck CBC today. From a medical standpoint no obvious indication for pt's AMS: no clear source of infection, no electrolyte or metabolic abnormalities. Will continue to follow respiratory panel and CBC. Continue IVF for now and try p.o. intake later in the day. Will continue to follow for now. Time Spent With Patient Time: Total time managing care of this patient today ____ minutes.
[2023-07-12 11:58] LABS: Hematocrit 45.8 % (42.0-52.0); Hemoglobin 15.2 g/dl (14.0-18.0); Mean Corpuscular HGB Conc 33.2 g/dl (31.0-36.0); Mean Corpuscular Hemoglobin 30.2 pg (27.0-33.0); Mean Corpuscular Volume 90.9 fL (80.0-98.0); Mean Platelet Volume 9.1 fL (9.4-12.4); Platelet Count 254 X10*3/uL (160-400); Red Blood Count 5.04 X10*6/uL (4.60-5.80); Red Cell Distribution Width 12.2 % (11.0-16.0); White Blood Count 8.8 X10*3/uL (4.8-10.8)
--- NOTE | 2023-07-12 15:25 | PC.NURSE ---
Lab called to inform aligner typewriter that Zeus tested positive for RSV, Dr. Serna notified. RN reached out to Farzana JEAN BAPTISTE who reported that patient is asymptomatic and does not need to be on droplet precaution he had previously tested positive on 07/04/23.
[2023-07-12 19:40] VITALS: BP 133/60; PULSE 84; RESP 18; TEMP 36.7; O2SAT 95
--- NOTE | 2023-07-12 23:59 | P.PNPSI_ITS ---
Subjective Subjective Date of Service: 07/12/23 Reason For Visit: confusion hx of depression Subjective Notes: Conditional Voluntary Interim History: The patient's case was reviewed with his who has also been invoked his healthcare proxy case reviewed intermittently with hospitalist service IV fluids given patient remains lethargic minimally engaged mostly mumbling not taking in food or fluids states he had been depressed over the past few weeks prior to admission before he got physically ill he was noted to be positive for RSV on repeat labs unremarkable The patient has been on close observation Attending Groups: No Mental Status Exam Mental Status Exam Narrative: Patient is casually dressed lying in bed. He is intermittently attended he does respond briefly when asked to move his leg or his arm. He is not eating or drinking responds briefly to questions but mostly unable to process information cannot respond when his name is where he is how his feel cannot assess hallucinations delusions thoughts of harm not tremulous no seizures noted Diagnostics Vital Signs (24Hr): Vital Signs - 24 hr 07/12/23 06:00 07/12/23 10:42 07/12/23 19:40 Temperature 97.8 F 98.1 F Pulse Rate 71 89 84 Respiratory Rate 16 18 Blood Pressure 111/76 142/69 H 133/60 Pulse Oximetry 100 95 Oxygen Delivery Method Room Air Room Air BMI result Body Mass Index 21.9 Labs 07/12/23 11:51 07/12/23 07:19 Labs: Laboratory Results - last 48 hr 07/11/23 07/11/23 07/11/23 12:56 13:01 14:35 WBC 11.0 H RBC 5.02 Hgb 15.4 Hct 46.0 MCV 91.6 MCH 30.7 MCHC 33.5 RDW 12.4 Plt Count 245 MPV 9.2 L Immature Gran % (Auto) 0.3 Neut % (Auto) 81.5 H Lymph % (Auto) 10.1 L [place] % (Auto) 6.8 Eos % (Auto) 1.1 Baso % (Auto) 0.2 Lymph # (Auto) 1.1 L [place] # (Auto) 0.7 Eos # (Auto) 0.1 Baso # (Auto) 0.0 Abs Immat Gran (auto) 0.03 Absolute Neuts (auto) 8.9 H Absolute Nucleated RBC 0.000 Nucleated RBC % (auto) 0.0 Sodium 143 Potassium 3.8 Chloride 102 Carbon Dioxide 30 H Anion Gap 15 BUN 18 H Creatinine 0.79 Estim Creat Clear Calc 81.0 Estimated GFR > 60 Random Glucose 94 Calcium 9.8 Magnesium Total Bilirubin 0.3 AST 21 ALT 10 Alkaline Phosphatase 99 Ammonia 22 Total Protein 7.7 Albumin 3.3 L TSH 2.49 Cancelled Respiratory Panel Velasquez See Note Adenovirus (Rapid PCR) Not Detected B.pert (TEM-PCR) Not Detected B.parapertussis DNA PCR Not Detected C. pneumoniae DNA (PCR) Not Detected Coronavirus OC43 (PCR) Not Detected Coronavirus HKU1 (PCR) Not Detected Coronavirus 229E (PCR) Not Detected Coronavirus NL63 (PCR) Not Detected Human Metapneumovir PCR Not Detected Influenza A (RT-PCR) Not Detected Influenza B (RT-PCR) Not Detected M. pneumoniae (PCR) Not Detected Parainfluenza 1 (PCR) Not Detected Parainfluenza 2 (PCR) Not Detected Parainfluenza 3 (PCR) Not Detected Parainfluenza 4 (PCR) Not Detected RSV (PCR) Detected A Entero/Rhino (PCR) Not Detected SARS-CoV-2 RNA (RT-PCR) Not Detected 07/12/23 07/12/23 07:19 11:51 WBC 8.8 RBC 5.04 Hgb 15.2 Hct 45.8 MCV 90.9 MCH 30.2 MCHC 33.2 RDW 12.2 Plt Count 254 MPV 9.1 L Immature Gran % (Auto) Neut % (Auto) Lymph % (Auto) [place] % (Auto) Eos % (Auto) Baso % (Auto) Lymph # (Auto) [place] # (Auto) Eos # (Auto) Baso # (Auto) Abs Immat Gran (auto) Absolute Neuts (auto) Absolute Nucleated RBC 0.000 Nucleated RBC % (auto) 0.0 Sodium 143 Potassium 3.5 Chloride 103 Carbon Dioxide 28 Anion Gap 16 BUN 16 Creatinine 0.73 Estim Creat Clear Calc 87.7 Estimated GFR > 60 Random Glucose 85 Calcium 9.5 Magnesium 1.7 Total Bilirubin 0.4 AST 19 ALT 9 Alkaline Phosphatase 99 Ammonia Total Protein 7.6 Albumin 3.8 TSH Respiratory Panel Velasquez Adenovirus (Rapid PCR) B.pert (TEM-PCR) B.parapertussis DNA PCR C. pneumoniae DNA (PCR) Coronavirus OC43 (PCR) Coronavirus HKU1 (PCR) Coronavirus 229E (PCR) Coronavirus NL63 (PCR) Human Metapneumovir PCR Influenza A (RT-PCR) Influenza B (RT-PCR) M. pneumoniae (PCR) Parainfluenza 1 (PCR) Parainfluenza 2 (PCR) Parainfluenza 3 (PCR) Parainfluenza 4 (PCR) RSV (PCR) Entero/Rhino (PCR) SARS-CoV-2 RNA (RT-PCR) Imaging Radiology Impressions: ITS Impressions Chest X-Ray 06/29/23 13:55 IMPRESSION: No acute cardiopulmonary findings. Head CT 06/29/23 14:03 IMPRESSION: 1. No acute intracranial process. No evidence for intracranial hemorrhage, extra-axial fluid collection, space-occupying process, mass effect or hydrocephalus. 2. 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 Tiny remote lacunar infarct in the right putamen versus perivascular space, unchanged. 3. 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 Head CT 07/11/23 15:21 IMPRESSION: No acute intracranial process seen. Medications Medications Current Medications Acetaminophen (Acetaminophen 325 Mg Tablet) 650 mg PO Q6H PRN PRN Reason: Headache/Pain Mild Scale (1-3) Al Hydroxide/Mg Hydroxide (Magnesium Hydrox/Alum Hydrox 30 Ml Oral.Susp) 30 ml PO Q6H PRN PRN Reason: Heartburn/Nausea Aripiprazole (Aripiprazole 5 Mg Tablet) 5 mg PO DAILY@1600 [facility] Last Admin: 07/12/23 16:06 Dose: Not Given Atorvastatin Calcium (Atorvastatin Calcium 10 Mg Tablet) 10 mg PO BEDTIME [facility] Last Admin: 07/12/23 20:14 Dose: Not Given Lactated Ringer's (Lr) 1,000 mls @ 100 mls/hr IVCONT .Q10H [facility] Last Admin: 07/12/23 20:10 Dose: 100 mls/hr Levothyroxine Sodium (Levothyroxine Sodium 75 Mcg Tablet) 75 mcg PO DAILY@0600 [facility] Last Admin: 07/12/23 06:08 Dose: 75 mcg Magnesium Hydroxide (Milk Of Magnesia 30 Ml Oral.Susp) 30 ml PO DAILY PRN PRN Reason: Constipation Nicotine Polacrilex (Nicotine Polacrilex 2 Mg Gum) 4 mg BUCCAL Q2H PRN PRN Reason: Nicotine Cravings Sertraline HCl (Sertraline Hcl 50 Mg Tablet) 175 mg PO DAILY [facility] Last Admin: 07/12/23 10:08 Dose: Not Given Sodium Chloride (0.9 % Sodium Chloride Flush 3 Ml Syringe) 3 ml IVFLUSH QSHIFT [facility] Trazodone HCl (Trazodone Hcl 25 Mg Halftab) 25 mg PO BEDTIME MRX1 PRN PRN Reason: Insomnia Allergies Allergies Allergy/AdvReac Type Severity Reaction Status Date / Time bee venom protein (honey bee) Allergy Severe Swelling Verified 06/29/23 12:07 Assessment & Plan Assessment & Plan (1) Major neurocognitive disorder: Status: Acute Code(s): F03.90 - Unspecified dementia, unspecified severity, without behavioral disturbance, psychotic disturbance, mood disturbance, and anxiety (2) Altered mental status: Status: Acute Code(s): R41.82 - Altered mental status, unspecified (3) Major depressive disorder, recurrent, severe with psychotic features: Status: Acute Code(s): F33.3 - Major depressive disorder, recurrent, severe with psychotic symptoms Plan The patient remains delirious somewhat obtunded. Abilify mirtazapine on hold getting intravenous fluids unclear if delirium related to recent medical condition had also been not eating or drinking much if no obvious medical condition head CT scan unchanged labs unremarkable consider ECT which he did respond to in the past continue sitter Patient educated on: other (Unable to process) Guardian/Caregiver educated on: diagnosis, medication risk/benefits and medical condition Informed Consent: understands (From ) Reason for continued inpatient stay Substantial Risk for: harm to self, inability to function and med/psych decompensation Time Spent With Patient Time: Total time managing care of this patient today 35____ minutes.
[2023-07-13] MEDS: traZODone HCL 25 MG HALFTAB PO (01:29)
--- NOTE | 2023-07-13 02:10 | PC.NURSE ---
PT restless and yelling out nonsensical. Trazadone given without effect. MD Fry notified, 1 time order for zyprexa zydis 10mg received.
[2023-07-13] MEDS: OLANZapine ODT 10 MG TAB.RAPDIS TRANSLINGU (02:24)
[2023-07-13] MEDS: Levothyroxine Sodium 75 MCG TABLET PO (05:36)
[2023-07-13] MEDS: Lactated Ringers 1,000 ML 100 ML IVCONT ×2 (05:55→15:36)
[2023-07-13] MEDS: Sertraline HCL 50 MG TABLET 175 MG PO (08:30)
[2023-07-13] MEDS: 0.9 % Sodium Chloride Flush 3 ML SYRINGE IVFLUSH ×2 (08:30→15:48)
[2023-07-13 10:02] VITALS: BP 130/61; PULSE 83; RESP 15; TEMP 36.9; O2SAT 95
--- NOTE | 2023-07-13 10:17 | HO.PSYCHPN ---
Subjective Subjective Date of Service: 07/13/23 Reason For Visit: confusion hx of depression Subjective Notes: Conditional Voluntary Interim History: The patient was more alert today he did eat some food he did have a straight cath earlier today check the patient's urine with a clean-catch. We did try lorazepam for catatonia may need ect ? psychotic dep ? delerium no clear etiology Mental Status Exam Mental Status Exam Narrative: Appearance: thin, malnourish, in bed, in NAD Behavior: periods irritability Psychomotor: some retardation noted Speech: unclear TP:concrete TC: pov content SI: denies HI: denies Insight/judgment: impaired Memory/cog: alert, not oriented to situation or month Diagnostics Vital Signs (24Hr): Vital Signs - 24 hr 07/12/23 10:42 07/12/23 19:40 07/13/23 10:02 Temperature 98.1 F 98.4 F Pulse Rate 89 84 83 Respiratory Rate 16 18 15 Blood Pressure 142/69 H 133/60 130/61 Pulse Oximetry 95 95 Oxygen Delivery Method Room Air Room Air BMI result Body Mass Index 21.9 Labs 07/12/23 11:51 07/14/23 08:35 Labs: Laboratory Results - last 48 hr 07/11/23 07/11/23 07/11/23 12:56 13:01 14:35 WBC 11.0 H RBC 5.02 Hgb 15.4 Hct 46.0 MCV 91.6 MCH 30.7 MCHC 33.5 RDW 12.4 Plt Count 245 MPV 9.2 L Immature Gran % (Auto) 0.3 Neut % (Auto) 81.5 H Lymph % (Auto) 10.1 L [place] % (Auto) 6.8 Eos % (Auto) 1.1 Baso % (Auto) 0.2 Lymph # (Auto) 1.1 L [place] # (Auto) 0.7 Eos # (Auto) 0.1 Baso # (Auto) 0.0 Abs Immat Gran (auto) 0.03 Absolute Neuts (auto) 8.9 H Absolute Nucleated RBC 0.000 Nucleated RBC % (auto) 0.0 Sodium 143 Potassium 3.8 Chloride 102 Carbon Dioxide 30 H Anion Gap 15 BUN 18 H Creatinine 0.79 Estim Creat Clear Calc 81.0 Estimated GFR > 60 Random Glucose 94 Calcium 9.8 Magnesium Total Bilirubin 0.3 AST 21 ALT 10 Alkaline Phosphatase 99 Ammonia 22 Total Protein 7.7 Albumin 3.3 L TSH 2.49 Cancelled Respiratory Panel Velasquez See Note Adenovirus (Rapid PCR) Not Detected B.pert (TEM-PCR) Not Detected B.parapertussis DNA PCR Not Detected C. pneumoniae DNA (PCR) Not Detected Coronavirus OC43 (PCR) Not Detected Coronavirus HKU1 (PCR) Not Detected Coronavirus 229E (PCR) Not Detected Coronavirus NL63 (PCR) Not Detected Human Metapneumovir PCR Not Detected Influenza A (RT-PCR) Not Detected Influenza B (RT-PCR) Not Detected M. pneumoniae (PCR) Not Detected Parainfluenza 1 (PCR) Not Detected Parainfluenza 2 (PCR) Not Detected Parainfluenza 3 (PCR) Not Detected Parainfluenza 4 (PCR) Not Detected RSV (PCR) Detected A Entero/Rhino (PCR) Not Detected SARS-CoV-2 RNA (RT-PCR) Not Detected 07/12/23 07/12/23 07:19 11:51 WBC 8.8 RBC 5.04 Hgb 15.2 Hct 45.8 MCV 90.9 MCH 30.2 MCHC 33.2 RDW 12.2 Plt Count 254 MPV 9.1 L Immature Gran % (Auto) Neut % (Auto) Lymph % (Auto) [place] % (Auto) Eos % (Auto) Baso % (Auto) Lymph # (Auto) [place] # (Auto) Eos # (Auto) Baso # (Auto) Abs Immat Gran (auto) Absolute Neuts (auto) Absolute Nucleated RBC 0.000 Nucleated RBC % (auto) 0.0 Sodium 143 Potassium 3.5 Chloride 103 Carbon Dioxide 28 Anion Gap 16 BUN 16 Creatinine 0.73 Estim Creat Clear Calc 87.7 Estimated GFR > 60 Random Glucose 85 Calcium 9.5 Magnesium 1.7 Total Bilirubin 0.4 AST 19 ALT 9 Alkaline Phosphatase 99 Ammonia Total Protein 7.6 Albumin 3.8 TSH Respiratory Panel Velasquez Adenovirus (Rapid PCR) B.pert (TEM-PCR) B.parapertussis DNA PCR C. pneumoniae DNA (PCR) Coronavirus OC43 (PCR) Coronavirus HKU1 (PCR) Coronavirus 229E (PCR) Coronavirus NL63 (PCR) Human Metapneumovir PCR Influenza A (RT-PCR) Influenza B (RT-PCR) M. pneumoniae (PCR) Parainfluenza 1 (PCR) Parainfluenza 2 (PCR) Parainfluenza 3 (PCR) Parainfluenza 4 (PCR) RSV (PCR) Entero/Rhino (PCR) SARS-CoV-2 RNA (RT-PCR) Imaging Radiology Impressions: ITS Impressions Chest X-Ray 06/29/23 13:55 IMPRESSION: No acute cardiopulmonary findings. Head CT 06/29/23 14:03 IMPRESSION: 1. No acute intracranial process. No evidence for intracranial hemorrhage, extra-axial fluid collection, space-occupying process, mass effect or hydrocephalus. 2. 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 Tiny remote lacunar infarct in the right putamen versus perivascular space, unchanged. 3. 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 Head CT 07/11/23 15:21 IMPRESSION: No acute intracranial process seen. Medications Medications Current Medications Acetaminophen (Acetaminophen 325 Mg Tablet) 650 mg PO Q6H PRN PRN Reason: Headache/Pain Mild Scale (1-3) Al Hydroxide/Mg Hydroxide (Magnesium Hydrox/Alum Hydrox 30 Ml Oral.Susp) 30 ml PO Q6H PRN PRN Reason: Heartburn/Nausea Aripiprazole (Aripiprazole 5 Mg Tablet) 5 mg PO DAILY@1600 [facility] Last Admin: 07/12/23 16:06 Dose: Not Given Atorvastatin Calcium (Atorvastatin Calcium 10 Mg Tablet) 10 mg PO BEDTIME [facility] Last Admin: 07/12/23 20:14 Dose: Not Given Lactated Ringer's (Lr) 1,000 mls @ 100 mls/hr IVCONT .Q10H [facility] Last Admin: 07/13/23 05:55 Dose: 100 mls/hr Levothyroxine Sodium (Levothyroxine Sodium 75 Mcg Tablet) 75 mcg PO DAILY@0600 [facility] Last Admin: 07/13/23 05:36 Dose: 75 mcg Magnesium Hydroxide (Milk Of Magnesia 30 Ml Oral.Susp) 30 ml PO DAILY PRN PRN Reason: Constipation Nicotine Polacrilex (Nicotine Polacrilex 2 Mg Gum) 4 mg BUCCAL Q2H PRN PRN Reason: Nicotine Cravings Sertraline HCl (Sertraline Hcl 50 Mg Tablet) 175 mg PO DAILY [facility] Last Admin: 07/13/23 08:30 Dose: 175 mg Sodium Chloride (0.9 % Sodium Chloride Flush 3 Ml Syringe) 3 ml IVFLUSH QSHIFT [facility] Last Admin: 07/13/23 08:30 Dose: 3 ml Trazodone HCl (Trazodone Hcl 25 Mg Halftab) 25 mg PO BEDTIME MRX1 PRN PRN Reason: Insomnia Last Admin: 07/13/23 01:29 Dose: 25 mg Allergies Allergies Allergy/AdvReac Type Severity Reaction Status Date / Time bee venom protein (honey bee) Allergy Severe Swelling Verified 06/29/23 12:07 Assessment & Plan Assessment & Plan (1) Major neurocognitive disorder: Status: Acute Code(s): F03.90 - Unspecified dementia, unspecified severity, without behavioral disturbance, psychotic disturbance, mood disturbance, and anxiety (2) Altered mental status: Status: Acute Code(s): R41.82 - Altered mental status, unspecified (3) Major depressive disorder, recurrent, severe with psychotic features: Status: Acute Code(s): F33.3 - Major depressive disorder, recurrent, severe with psychotic symptoms Plan Patient had initially initial CV I did invoke the patient's healthcare proxy and patient's who is healthcare proxy did verbally consent to psychiatric admission. The patient after admission to the psych unit has become increasingly withdrawn he is in a hospital bed he is not ambulating today was not eating or drinking and hospitalist service was consulted and intravenous fluids started. Patient when seen today was unable to respond to his name place or give any history was mostly incoherent or minimally arousable and lethargic. This is not how the patient presented last year when he was admitted to the [facility] and did have ECT at that time recent head CT was generally unremarkable microangiopathic changes noted See if patient response response intravenous fluids will hold mirtazapine Abilify for now patient is noted to have obstructive sleep apnea he does not appear to have classic catatonia does appear delirious question need for LP discussed with hospitalist service potential transfer to medical floor Vital signs have been unremarkable including pulse oxygen labs repeated afebrile continue workup Patient does have a history of psychotic depression current symptoms do not seem to be clearly indicated of of this diagnosis vs psych depression with confusional state no clear medical cause have consulted with hospitalist service repeatedly no clear medical etiology reprtedly was suicidal prior to adm at some pt Patient educated on: other Guardian/Caregiver educated on: diagnosis, ECT and medical condition Informed Consent: understands (hcp) Reason for continued inpatient stay Substantial Risk for: harm to self and inability to function Time Spent With Patient Time: Total time managing care of this patient today _60___ minutes.
[2023-07-13 13:06] VITALS: BP 142/69; PULSE 86; RESP 16; O2SAT 94
[2023-07-13] MEDS: LORazepam 2 MG/ML VIAL 1 MG IVPUSH (13:06)
[2023-07-13 13:47] LABS: Appearance Urine Clear; Color Urine Dark Yellow; Glucose Urine UA Negative (Negative); Leukocyte Esterase Urine Negative (Negative); Nitrite Urine Negative (Negative); PH 5.5 (5.0-9.0); Specific Gravity - Urine 1.025 (1.005-1.025); UMIC TRIGGER UACC YES; Urine Blood Trace (Negative); Urine Ketones 15 mg/dL (Negative); Urine Protein Negative (Neg-Trace)
[2023-07-13 14:01] LABS: Bacteria Urine None Seen (None Seen); Calcium Oxalate Crystals Urine Present; Squamous Epithelial Cell Urine 0-2 /HPF (0-2); WBC Urine 0-5 /HPF (0-5)
[2023-07-13 21:25] VITALS: BP 136/87; PULSE 82; RESP 16; TEMP 37; O2SAT 96
--- NOTE | 2023-07-13 23:42 | PC.NURSE ---
PERIPHERAL IV SITE APPEARS INFILTRATED. IV INFUSION OF LR STOPPED. NURSING BILL HIKER MADE AWARE.
--- NOTE | 2023-07-13 23:59 | PC.NURSE ---
NURSING SUBSTATION INSPECTOR REMOVED PERIPHERAL IV SITE DUE TO INFILTRATION. NEW IV PUT IN RIGHT HAND.
--- NOTE | 2023-07-14 | EEG_ITS ---
FINDINGS: Waking background activity consists of a [id number] voltage, diffuse 4 to 5 hertz theta slowing with intermittent bifrontal 2 to 3 hertz delta. Photic stimulation was without activation. Hyperventilation was omitted. IMPRESSION: This is an abnormal EEG due to fairly severe diffuse background slowing consistent with a diffuse encephalopathic process. No epileptiform discharges were seen. MD JO ANN Coreas/NITINL / [id number]
[2023-07-14] MEDS: Lactated Ringers 1,000 ML 100 ML IVCONT ×2 (03:00→13:12)
--- NOTE | 2023-07-14 08:00 | ECG_ITS ---
Test Reason : PRE ECT Blood Pressure : / mmHG Vent. Rate : 073 BPM Atrial Rate : 073 BPM P-R Int : 150 ms QRS Dur : 142 ms QT Int : 450 ms P-R-T Axes : 072 070 049 degrees QTc Int : 495 ms Sinus rhythm with Premature supraventricular complexes Right bundle branch block Abnormal ECG When compared with ECG of 29-JUN-2023 12:20, No significant change was found Referred By: Alex Serna Electronically Signed By:MERE CROFT
[2023-07-14 09:14] LABS: Alanine Aminotransferase 11 U/L (0-40); Albumin Level 3.6 g/dL (3.5-5.0); Alkaline Phosphatase 90 U/L (39-117); Anion Gap 13 (12-20); Aspartate Amino Transferase 27 U/L (5-37); Bilirubin Total 0.4 mg/dL (0.0-1.0); Blood Urea Nitrogen 7 mg/dL (9-16); Calcium 9.6 mg/dL (8.4-10.2); Carbon Dioxide 34 mmol/L (22-29); Chloride 98 mmol/L (96-108); Creatinine Clr Calc Pharmacy 83.1; Estimated Glomerular Filt Rate > 60; Glucose Random 115 mg/dL (60-115); Potassium 3.5 mmol/L (3.3-5.1); Sodium 141 mmol/L (135-145); Total Protein 7.3 g/dL (6.5-8.0)
[2023-07-14] MEDS: Sertraline HCL 50 MG TABLET 175 MG PO (10:23)
[2023-07-14] MEDS: Acetaminophen 325 MG TABLET 650 MG PO ×2 (10:29→21:59)
[2023-07-14 13:26] VITALS: BP 131/70; PULSE 81; RESP 18; TEMP 36.3; O2SAT 96
--- NOTE | 2023-07-14 16:49 | HO.PSYCHPN ---
Subjective Subjective Date of Service: 07/14/23 Reason For Visit: confusion hx of depression Subjective Notes: Conditional Voluntary Healthcare Proxy: Yes Interim History: Patient continues to be lethargic despite discontinuation of mirtazapine and Abilify. Did seem to perk up initially. Have discussed repeatedly hospitalist service a lot patient has a history of psychotic depression lethargy and confusion did not seem typical. So far no clear medical reason for condition have encouraged transfer to medical service. Patient with periods arousability will answer name and some basic commands but has intermittent slurred speech Mental Status Exam Mental Status Exam Narrative: Appearance: thin, malnourish, in bed, in NAD Behavior: periods irritability Psychomotor: retardation noted lethargy Speech: unclear TP:concrete TC: pov content SI: denies HI: denies Insight/judgment: impaired Memory/cog: , not oriented to situation or month Diagnostics Vital Signs (24Hr): Vital Signs - 24 hr 07/13/23 21:25 07/14/23 13:26 Temperature 98.6 F 97.3 F Pulse Rate 82 81 Respiratory Rate 16 18 Blood Pressure 136/87 131/70 Pulse Oximetry 96 96 Oxygen Delivery Method Room Air Room Air BMI result Body Mass Index 21.9 Labs 07/12/23 11:51 07/14/23 08:35 Labs: Laboratory Results - last 48 hr 07/13/23 07/14/23 13:25 08:35 Sodium 141 Potassium 3.5 Chloride 98 Carbon Dioxide 34 H Anion Gap 13 BUN 7 L Creatinine 0.77 Estim Creat Clear Calc 83.1 Estimated GFR > 60 Random Glucose 115 Calcium 9.6 Total Bilirubin 0.4 AST 27 ALT 11 Alkaline Phosphatase 90 Total Protein 7.3 Albumin 3.6 Folate 13.0 Urine Color Dark Yellow Urine Appearance Clear Urine pH 5.5 Ur Specific [place] 1.025 Urine Protein Negative Urine Glucose (UA) Negative Urine Ketones 15 Urine Blood Trace H Urine Nitrite Negative Ur Leukocyte Esterase Negative Urine RBC 3-5 H Urine WBC 0-5 Ur Squamous Epith Cells 0-2 Calcium Oxalate Crystal Present Urine Bacteria None Seen Hyaline Casts 3-5 Imaging Radiology Impressions: ITS Impressions Chest X-Ray 06/29/23 13:55 IMPRESSION: No acute cardiopulmonary findings. Head CT 06/29/23 14:03 IMPRESSION: 1. No acute intracranial process. No evidence for intracranial hemorrhage, extra-axial fluid collection, space-occupying process, mass effect or hydrocephalus. 2. 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 Tiny remote lacunar infarct in the right putamen versus perivascular space, unchanged. 3. 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 Head CT 07/11/23 15:21 IMPRESSION: No acute intracranial process seen. Medications Medications Current Medications Acetaminophen (Acetaminophen 325 Mg Tablet) 650 mg PO Q6H PRN PRN Reason: Headache/Pain Mild Scale (1-3) Last Admin: 07/14/23 10:29 Dose: 650 mg Al Hydroxide/Mg Hydroxide (Magnesium Hydrox/Alum Hydrox 30 Ml Oral.Susp) 30 ml PO Q6H PRN PRN Reason: Heartburn/Nausea Atorvastatin Calcium (Atorvastatin Calcium 10 Mg Tablet) 10 mg PO BEDTIME [facility] Last Admin: 07/13/23 23:21 Dose: Not Given Lactated Ringer's (Lr) 1,000 mls @ 60 mls/hr IVCONT .[id number] [facility] Last Admin: 07/14/23 13:12 Dose: 100 mls/hr Levothyroxine Sodium (Levothyroxine Sodium 75 Mcg Tablet) 75 mcg PO DAILY@0600 [facility] Last Admin: 07/14/23 05:51 Dose: Not Given Magnesium Hydroxide (Milk Of Magnesia 30 Ml Oral.Susp) 30 ml PO DAILY PRN PRN Reason: Constipation Nicotine Polacrilex (Nicotine Polacrilex 2 Mg Gum) 4 mg BUCCAL Q2H PRN PRN Reason: Nicotine Cravings Risperidone (Risperidone 0.5 Mg Tablet) 0.5 mg PO BEDTIME [facility] Sertraline HCl (Sertraline Hcl 50 Mg Tablet) 175 mg PO DAILY [facility] Last Admin: 07/14/23 10:23 Dose: 175 mg Sodium Chloride (0.9 % Sodium Chloride Flush 3 Ml Syringe) 3 ml IVFLUSH QSHIFT [facility] Last Admin: 07/14/23 15:23 Dose: Not Given Trazodone HCl (Trazodone Hcl 25 Mg Halftab) 25 mg PO BEDTIME MRX1 PRN PRN Reason: Insomnia Last Admin: 07/13/23 01:29 Dose: 25 mg Allergies Allergies Allergy/AdvReac Type Severity Reaction Status Date / Time bee venom protein (honey bee) Allergy Severe Swelling Verified 06/29/23 12:07 Assessment & Plan Assessment & Plan (1) Major neurocognitive disorder: Status: Acute Code(s): F03.90 - Unspecified dementia, unspecified severity, without behavioral disturbance, psychotic disturbance, mood disturbance, and anxiety (2) Altered mental status: Status: Acute Code(s): R41.82 - Altered mental status, unspecified (3) Major depressive disorder, recurrent, severe with psychotic features: Status: Acute Code(s): F33.3 - Major depressive disorder, recurrent, severe with psychotic symptoms Plan Patient had initially initial CV I did invoke the patient's healthcare proxy and patient's who is healthcare proxy did verbally consent to psychiatric admission. The patient after admission to the psych unit has become increasingly withdrawn he is in a hospital bed he is not ambulating today was not eating or drinking and hospitalist service was consulted and intravenous fluids started. Patient when seen today was unable to respond to his name place or give any history was mostly incoherent or minimally arousable and lethargic. This is not how the patient presented last year when he was admitted to the [facility] and did have ECT at that time recent head CT was generally unremarkable microangiopathic changes noted See if patient response response intravenous fluids will hold mirtazapine Abilify for now patient is noted to have obstructive sleep apnea he does not appear to have classic catatonia does appear delirious question need for LP discussed with hospitalist service potential transfer to medical floor Vital signs have been unremarkable including pulse oxygen labs repeated afebrile continue workup Patient does have a history of psychotic depression current symptoms do not seem to be clearly indicated of of this diagnosis vs psych depression with confusional state no clear medical cause have consulted with hospitalist service repeatedly no clear medical etiology reprtedly was suicidal prior to adm at some pt Repeatedly have discussed a daily basis with the hospital service neuro consult Reason for continued inpatient stay Substantial Risk for: inability to function, rapid decompensation and med/psych decompensation Time Spent With Patient Time: Total time managing care of this patient today ____ minutes.
[2023-07-14 21:15] VITALS: BP 157/81; PULSE 84; RESP 16; TEMP 36.4; O2SAT 95
[2023-07-14] MEDS: risperiDONE 0.5 MG TABLET PO (21:59)
[2023-07-14] MEDS: traZODone HCL 25 MG HALFTAB PO (21:59)
[2023-07-14] MEDS: Atorvastatin Calcium 10 MG TABLET PO (22:00)
--- NOTE | 2023-07-14 23:20 | PC.NURSE ---
Pt IV has been running all day at 100mls. Per provider Gildardo Hall pt is drinking some so to avoid overload will be lower infusion rate to 60mls/hr. New bag started this evening at 2250.
[2023-07-15] MEDS: Levothyroxine Sodium 75 MCG TABLET PO (05:53)
[2023-07-15 08:00] VITALS: BP 160/98; PULSE 80; TEMP 26.6; O2SAT 95
[2023-07-15] MEDS: LORazepam 2 MG/ML VIAL 0.5 MG IVPUSH (11:50)
--- NOTE | 2023-07-15 13:38 | PC.NURSE ---
Pt has a peripheral IV in his left hand. IV is patent and running LR @ 60 ml/hr.
--- NOTE | 2023-07-15 16:01 | PC.NURSE ---
Assumed care of this patient at 1530. Pt is in bed w/ 1:1 at bedside. IV in L hand w/ LR running at 60mls/hr. Pt resting quietly at this time.
--- NOTE | 2023-07-15 16:35 | P.PNPSI_ITS ---
Subjective Subjective Date of Service: 07/15/23 Reason For Visit: confusion hx of depression Interim History: Met with patient; discussed with team; reviewed chart and discussed with Dr. Serna and Dr. Knapp in detail Earlier this morning when policy writer met with patient communicating very little, mostly lying in bed, responding when his name is called but mumbling incoherently. Later on however policy writer again met with pt when he was to be transferred for EEG, got agitated and told staff leave me alone.. Patient remains with some type of delirium; so far no organic etiology uncovered; hospitalist continues to follow patient and is considering LP though given normal labs and vitals unlikely to help much with diagnosis. Dr. Serna agreed to DC Risperdal for now and keep other meds lowered. Was going to transfer patient to geriatric unit however will instead follow patient on M5 and consider ECT. Mental Status Exam Mental Status Exam Narrative: Appearance: thin, malnourish, in bed, in NAD Behavior: Intermittently lethargic interspersed with periods of irritability Psychomotor: some retardation noted Speech: unclear TP:concrete TC: Impoverished content Insight/judgment: impaired Oriented to self Diagnostics Vital Signs (24Hr): Vital Signs - 24 hr 07/14/23 21:15 07/15/23 08:00 Temperature 97.5 F 80 F L Pulse Rate 84 80 Respiratory Rate 16 Blood Pressure 157/81 H 160/98 H Pulse Oximetry 95 95 Oxygen Delivery Method Room Air Room Air BMI result Body Mass Index 21.9 Labs 07/12/23 11:51 07/14/23 08:35 Labs: Laboratory Results - last 48 hr 07/14/23 08:35 Sodium 141 Potassium 3.5 Chloride 98 Carbon Dioxide 34 H Anion Gap 13 BUN 7 L Creatinine 0.77 Estim Creat Clear Calc 83.1 Estimated GFR > 60 Random Glucose 115 Calcium 9.6 Total Bilirubin 0.4 AST 27 ALT 11 Alkaline Phosphatase 90 Total Protein 7.3 Albumin 3.6 Folate 13.0 Imaging Radiology Impressions: ITS Impressions Chest X-Ray 06/29/23 13:55 IMPRESSION: No acute cardiopulmonary findings. Head CT 06/29/23 14:03 IMPRESSION: 1. No acute intracranial process. No evidence for intracranial hemorrhage, extra-axial fluid collection, space-occupying process, mass effect or hydrocephalus. 2. 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 Tiny remote lacunar infarct in the right putamen versus perivascular space, unchanged. 3. 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 Head CT 07/11/23 15:21 IMPRESSION: No acute intracranial process seen. Medications Medications Current Medications Acetaminophen (Acetaminophen 325 Mg Tablet) 650 mg PO Q6H PRN PRN Reason: Headache/Pain Mild Scale (1-3) Last Admin: 07/14/23 21:59 Dose: 650 mg Al Hydroxide/Mg Hydroxide (Magnesium Hydrox/Alum Hydrox 30 Ml Oral.Susp) 30 ml PO Q6H PRN PRN Reason: Heartburn/Nausea Atorvastatin Calcium (Atorvastatin Calcium 10 Mg Tablet) 10 mg PO BEDTIME [facility] Last Admin: 07/14/23 22:00 Dose: 10 mg Lactated Ringer's (Lr) 1,000 mls @ 60 mls/hr IVCONT .[id number] [facility] Last Infusion: 07/14/23 22:50 Dose: 60 mls/hr Levothyroxine Sodium (Levothyroxine Sodium 75 Mcg Tablet) 75 mcg PO DAILY@0600 [facility] Last Admin: 07/15/23 05:53 Dose: 75 mcg Magnesium Hydroxide (Milk Of Magnesia 30 Ml Oral.Susp) 30 ml PO DAILY PRN PRN Reason: Constipation Nicotine Polacrilex (Nicotine Polacrilex 2 Mg Gum) 4 mg BUCCAL Q2H PRN PRN Reason: Nicotine Cravings Sertraline HCl (Sertraline Hcl 100 Mg Tablet) 100 mg PO DAILY [facility] Sodium Chloride (0.9 % Sodium Chloride Flush 3 Ml Syringe) 3 ml IVFLUSH QSHIFT [facility] Last Admin: 07/15/23 15:40 Dose: Not Given Trazodone HCl (Trazodone Hcl 25 Mg Halftab) 25 mg PO BEDTIME MRX1 PRN PRN Reason: Insomnia Last Admin: 07/14/23 21:59 Dose: 25 mg Allergies Allergies Allergy/AdvReac Type Severity Reaction Status Date / Time bee venom protein (honey bee) Allergy Severe Swelling Verified 06/29/23 12:07 Assessment & Plan Assessment & Plan (1) Major neurocognitive disorder: Status: Acute Code(s): F03.90 - Unspecified dementia, unspecified severity, without behavioral disturbance, psychotic disturbance, mood disturbance, and anxiety (2) Altered mental status: Status: Acute Code(s): R41.82 - Altered mental status, unspecified (3) Major depressive disorder, recurrent, severe with psychotic features: Status: Acute Code(s): F33.3 - Major depressive disorder, recurrent, severe with psychotic symptoms Plan HPI: Patient with history recurrent depression cognitive impairment. Is seen by nurse practitioner outpatient and has been on mirtazapine Abilify sertraline. Patient did have ECT in 2021 patient has had worsening executive functioning gradual memory dysfunction the patient however was functioning ambulatory alert he had been somewhat more lethargic recently he had developed cough was eventually seen in the emergency room was noted to have RSV question of UTI the patient was scheduled to be discharged from the emergency room but not been eating for days and was barely functioning and referred to Psychiatry he had a period of delirium in the emergency room peer to clear and then again became depressed withdrawn Past Psychiatric History: Inpt: 03/2021; 02/2022 (received 7 ECT tx with good effect) Patient had initially initial CV I did invoke the patient's healthcare proxy and patient's who is healthcare proxy did verbally consent to psychiatric admission. The patient after admission to the psych unit has become increasingly withdrawn he is in a hospital bed he is not ambulating today was not eating or drinking and hospitalist service was consulted and intravenous fluids started. Patient when seen today was unable to respond to his name place or give any history was mostly incoherent or minimally arousable and lethargic. This is not how the patient presented last year when he was admitted to the [facility] Psych[facility] Unit and did have ECT at that time recent head CT was generally unremarkable microangiopathic changes noted See if patient response response intravenous fluids will hold mirtazapine Abilify for now patient is noted to have obstructive sleep apnea he does not appear to have classic catatonia does appear delirious question need for LP discussed with hospitalist service potential transfer to medical floor Vital signs have been unremarkable including pulse oxygen labs repeated afebrile continue workup Patient does have a history of psychotic depression current symptoms do not seem to be clearly indicated of of this diagnosis vs psych depression with confusional state no clear medical cause have consulted with hospitalist service repeatedly no clear medical etiology reprtedly was suicidal prior to adm at some pt Hospital course: 07/15 Met with patient; discussed with team; reviewed chart and discussed with Dr. Serna and Dr. Knapp in detail Patient remains with some type of delirium; so far no organic etiology uncovered; hospitalist continues to follow patient and is considering LP though given normal labs and vitals unlikely to help much with diagnosis. Dr. Serna agreed to DC Risperdal for now and keep other meds lowered. Was going to transfer patient to geriatric unit however will instead follow patient on M5 and consider ECT. -Earlier this morning when policy writer met with patient communicating very little, mostly lying in bed, responding when his name is called but mumbling incoherently. Later on however policy writer again met with pt when he was to be transferred for EEG, got agitated and told staff leave me alone.. -neurology consult placed Patient educated on: diagnosis Informed Consent: does not understand Reason for continued inpatient stay Substantial Risk for: inability to function Time Spent With Patient Time: Total time managing care of this patient today ____ minutes.
[2023-07-15] MEDS: Lactated Ringers 1,000 ML 60 ML IVCONT (17:40)
[2023-07-15 18:00] VITALS: BP 136/91; PULSE 96; TEMP 36.9; O2SAT 96
--- NOTE | 2023-07-15 18:13 | PM.NEUROCN ---
History of Present Illness Data of Consult Service Date: 07/15/23 Primary Care Provider: Nishant Corral MD HPI Reason for consult: altered mentation 77 yr old man with recurrent depression and cognitive impairment, on mirtazapine, Abilify, sertraline, h/o ECT in 2021 admitted with worsening executive functioning, memory decline somewhat more lethargic recently. He had developed cough and was noted to have RSV question of UTI . He had not been eating for days and was barely functioning and referred to Psychiatry he had a period of delirium in the emergency room again became depressed withdrawn Past Psychiatric History: Inpt: 03/2021; 02/2022 (received 7 ECT tx with good effect) CT scan x 2 without abnormality. Review of Systems Review of Systems: Unable to obtain due to patient's mentation Yes all other systems are reviewed and are negative Constitutional: Constitutional: Reports as per HPI [facility] Past Medical History Medical History Depression Hypothyroidism Prostate cancer Depression HLD (hyperlipidemia) HTN (hypertension) Family History Family History Other Prostate cancer Surgical History Surgical History H/O prostatectomy History of hernia surgery Social History Social History Household Members: Spouse Housing: House Do you presently have visiting nurse or other home services: No Unable to assess alcohol history related to: Unable to respond Alcohol intake: never Comment: 1:1 observation Patient Tobacco Use Status: Former Tobacco user Tobacco use type: Cigarette Cigarette Packs Per Day: 1 Cigarettes Per Day: 20.0 Smoked in Last 30 Days: No e-Cigarette/Vaping Use: Never Used Patient Interested in Nicotine Replacement: No Patient Given Instructions on How to Stop Smoking: No (n/a) Second Hand Smoke Exposure: No Use of substances other than those prescribed or required for medical reasons: No Currently Displaying Signs/Symptoms of Drug Intoxication Withdrawal: No Advance Directives: No Advance Directives Information Provided: Yes Advance Directives Date on File: 01/29/22 Healthcare Proxy: Yes ( Lenora [phone]) Guardian: No Do you have thoughts of harming others: None Do you have a plan to hurt others: No Plan Recently lost weight without trying: Yes How much weight loss: Unsure Eating poorly because of decreased appetite: Yes Nutrition screen score: 5 Nutrition Risks: Poor intake 0-25% >4 days service: Yes (Sensitive Object) Sexual orientation: Straight/Heterosexual Meds Allergies Allergy/AdvReac Type Severity Reaction Status Date / Time bee venom protein (honey bee) Allergy Severe Swelling Verified 06/29/23 12:07 Active Medications: Current Medications Acetaminophen (Acetaminophen 325 Mg Tablet) 650 mg PO Q6H PRN PRN Reason: Headache/Pain Mild Scale (1-3) Last Admin: 07/14/23 21:59 Dose: 650 mg Al Hydroxide/Mg Hydroxide (Magnesium Hydrox/Alum Hydrox 30 Ml Oral.Susp) 30 ml PO Q6H PRN PRN Reason: Heartburn/Nausea Atorvastatin Calcium (Atorvastatin Calcium 10 Mg Tablet) 10 mg PO BEDTIME [facility] Last Admin: 07/14/23 22:00 Dose: 10 mg Enoxaparin Sodium (Enoxaparin Sodium 40 Mg/0.4 Ml Syringe) 40 mg SUBCUT Q24H [facility] Lactated Ringer's (Lr) 1,000 mls @ 60 mls/hr IVCONT .[id number] [facility] Last Admin: 07/15/23 17:40 Dose: 60 mls/hr Levothyroxine Sodium (Levothyroxine Sodium 75 Mcg Tablet) 75 mcg PO DAILY@0600 [facility] Last Admin: 07/15/23 05:53 Dose: 75 mcg Magnesium Hydroxide (Milk Of Magnesia 30 Ml Oral.Susp) 30 ml PO DAILY PRN PRN Reason: Constipation Nicotine Polacrilex (Nicotine Polacrilex 2 Mg Gum) 4 mg BUCCAL Q2H PRN PRN Reason: Nicotine Cravings Sertraline HCl (Sertraline Hcl 100 Mg Tablet) 100 mg PO DAILY [facility] Sodium Chloride (0.9 % Sodium Chloride Flush 3 Ml Syringe) 3 ml IVFLUSH QSHIFT [facility] Last Admin: 07/15/23 15:40 Dose: Not Given Trazodone HCl (Trazodone Hcl 25 Mg Halftab) 25 mg PO BEDTIME MRX1 PRN PRN Reason: Insomnia Last Admin: 07/14/23 21:59 Dose: 25 mg Home Medications Medication Instructions Recorded Confirmed Last Taken Type mirtazapine 15 mg tablet 15 mg PO BEDTIME 10/09/22 06/30/23 Unknown History sertraline 50 mg tablet 175 mg PO DAILY 10/09/22 06/30/23 Unknown History Physical Exam Vital Signs: Vital Signs: Last Vital Signs Temp 80 F L 07/15/23 08:00 Pulse 80 07/15/23 08:00 Resp 16 07/14/23 21:15 BP 160/98 H 07/15/23 08:00 Pulse Ox 95 07/15/23 08:00 O2 Del Method Room Air 07/15/23 08:00 BMI result Body Mass Index 21.9 Const: General: cooperative, healthy appearing and no acute distress Limitations: no limitations HEENT: Head: Yes normal to inspection and Yes atraumatic Ears: hearing grossly normal bilaterally General nose exam: Normal external nose present Face and sinus: Yes normal facial exam Eyes: General: appearance normal, both eyes and all related structures EOM: EOMs intact bilaterally Neck: Neck: Yes normal visual inspection Resp: Effort & Inspection: normal respiratory effort and no respiratory distress Auscultation: clear to auscultation bilaterally Cardio: Rate: regular rate Heart sounds: S1 normal heart sound present and S2 normal heart sound present GI: Inspection: Yes normal to inspection Palpation (GI): Soft to palpation, nontender, no guarding and not rigid : General: Yes no CVA tenderness Back/Spine/Pelvis: Back: no CVA tenderness Skin: Rashes: no rashes Wounds: no wounds Neuro: Other: lethargic , Barely arousable. He mumbles his name but cannot tell me his age or where he is. He will occasionally speak in one word with dysarthric speech. It is difficult to comprehend. He does not follow any commands. He moves all 4 extremities to noxious stimulation. He has some nuchal rigidity. Plantar response are flexor General: moves all extremities, no focal motor deficits and CN's II-XI intact bilaterally Cranial nerves: Yes CN's II-XII intact bilaterally and Yes Bilaterally intact EOM present Gait exam (Neuro): Normal gait present Motor exam (neuro): 5/5 motor strength present throughout Extrem: General: Yes normal to inspection Results Labs 07/12/23 11:51 07/14/23 08:35 Microbiology Microbiology Results: Microbiology 06/29/23 19:57 Urine clean catch - Urine menjivar top Urine Culture - Final No growth. Assessment and Plan (1) Major neurocognitive disorder: Status: Acute (2) Altered mental status: Status: Acute He appears encephalopathic, probably superimposed on a baseline dementia. Infectious/metabolic etiologies need to be excluded. CT scan is unremarkable. Recommendations: EEG, lumbar puncture, TSH and serum ammonia. Recheck UTI and a chest x-ray (3) Major depressive disorder, recurrent, severe with psychotic features: Status: Acute Plan HPI: Patient with history recurrent depression cognitive impairment. Is seen by nurse practitioner outpatient and has been on mirtazapine Abilify sertraline. Patient did have ECT in 2021 patient has had worsening executive functioning gradual memory dysfunction the patient however was functioning ambulatory alert he had been somewhat more lethargic recently he had developed cough was eventually seen in the emergency room was noted to have RSV question of UTI the patient was scheduled to be discharged from the emergency room but not been eating for days and was barely functioning and referred to Psychiatry he had a period of delirium in the emergency room peer to clear and then again became depressed withdrawn Past Psychiatric History: Inpt: 03/2021; 02/2022 (received 7 ECT tx with good effect) Patient had initially initial CV I did invoke the patient's healthcare proxy and patient's who is healthcare proxy did verbally consent to psychiatric admission. The patient after admission to the psych unit has become increasingly withdrawn he is in a hospital bed he is not ambulating today was not eating or drinking and hospitalist service was consulted and intravenous fluids started. Patient when seen today was unable to respond to his name place or give any history was mostly incoherent or minimally arousable and lethargic. This is not how the patient presented last year when he was admitted to the [facility] Unit and did have ECT at that time recent head CT was generally unremarkable microangiopathic changes noted See if patient response response intravenous fluids will hold mirtazapine Abilify for now patient is noted to have obstructive sleep apnea he does not appear to have classic catatonia does appear delirious question need for LP discussed with hospitalist service potential transfer to medical floor Vital signs have been unremarkable including pulse oxygen labs repeated afebrile continue workup Patient does have a history of psychotic depression current symptoms do not seem to be clearly indicated of of this diagnosis vs psych depression with confusional state no clear medical cause have consulted with hospitalist service repeatedly no clear medical etiology reprtedly was suicidal prior to adm at some pt Hospital course: 07/15 Met with patient; discussed with team; reviewed chart and discussed with Dr. Serna and Dr. Knapp in detail Patient remains with some type of delirium; so far no organic etiology uncovered; hospitalist continues to follow patient and is considering LP though given normal labs and vitals unlikely to help much with diagnosis. Dr. Serna agreed to DC Risperdal for now and keep other meds lowered. Was going to transfer patient to geriatric unit however will instead follow patient on M5 and consider ECT. -Earlier this morning when continuity writer met with patient communicating very little, mostly lying in bed, responding when his name is called but mumbling incoherently. Later on however continuity writer again met with pt when he was to be transferred for EEG, got agitated and told staff leave me alone.. -neurology consult placed Procedures Date of Service Date of Service: 07/15/23
--- NOTE | 2023-07-15 18:58 | PC.NURSE ---
Addendum entered by Yane Ring RN 07/15/23 19:18: Gildardo Hall reported IV fine to leave out for tonight an have staff try again in morning and assess level of comabtiveness then. Staff overnight to encourage pt to drink PO Original Note: Pts IV in L hand not flushing. This RN attempted to start IV in R hand but pt was combative and unable to start IV. Gildardo Hall and business continuity manager manuela fu notified. Awaiting further plan.
[2023-07-15] MEDS: Enoxaparin Sodium 40 MG/0.4 ML SYRINGE SUBCUT (20:12)
[2023-07-15] MEDS: Atorvastatin Calcium 10 MG TABLET PO (20:15)
[2023-07-16] MEDS: Levothyroxine Sodium 75 MCG TABLET PO (05:32)
[2023-07-16 06:00] VITALS: BP 156/76; PULSE 103; RESP 14; TEMP 36.8; O2SAT 93
--- NOTE | 2023-07-16 10:55 | P.PNPSI_ITS ---
Subjective Subjective Date of Service: 07/16/23 Reason For Visit: confusion hx of depression Subjective Notes: Conditional Voluntary Healthcare Proxy: Yes Medical Problems Affecting Mental Status: Yes (Patient currently on delirium) Interim History: The nursing staff reported that last night he pull out his IV line and he does not have IV fluids at this moment. The sitter reported that he has short periods of apnea on guardian noises. I informed the medical team and they are assessing him right now. On interview the patient looks confused delirious unable to follow interview. We will consult today for assessment and possible transfer to Medicine. Mental Status Exam Mental Status Exam Patient Appearance: Unkempt Patient Orientation: Person Level of Consciousness: Disoriented and Inappropriate Patient Behavior: Restless Mood Description: Withdrawn Affect Description: Blunted Patient Cognition Impaired: Yes Ability to Follow Directions: Poor Speech Pattern: No Speech Hallucinations: None Delusions: Ideas of Reference Thought Process: Illogical Thought Content: positive for Poverty of Content Judgement: Poor Diagnostics Vital Signs (24Hr): Vital Signs - 24 hr 07/15/23 18:00 Temperature 98.4 F Pulse Rate 96 Blood Pressure 136/91 H Pulse Oximetry 96 Oxygen Delivery Method Room Air BMI result Body Mass Index 21.9 Labs 07/12/23 11:51 07/14/23 08:35 Imaging Radiology Impressions: ITS Impressions Chest X-Ray 06/29/23 13:55 IMPRESSION: No acute cardiopulmonary findings. Head CT 06/29/23 14:03 IMPRESSION: 1. No acute intracranial process. No evidence for intracranial hemorrhage, extra-axial fluid collection, space-occupying process, mass effect or hydrocephalus. 2. 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 Tiny remote lacunar infarct in the right putamen versus perivascular space, unchanged. 3. 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 Head CT 07/11/23 15:21 IMPRESSION: No acute intracranial process seen. Medications Medications Current Medications Acetaminophen (Acetaminophen 325 Mg Tablet) 650 mg PO Q6H PRN PRN Reason: Headache/Pain Mild Scale (1-3) Last Admin: 07/14/23 21:59 Dose: 650 mg Al Hydroxide/Mg Hydroxide (Magnesium Hydrox/Alum Hydrox 30 Ml Oral.Susp) 30 ml PO Q6H PRN PRN Reason: Heartburn/Nausea Atorvastatin Calcium (Atorvastatin Calcium 10 Mg Tablet) 10 mg PO BEDTIME [facility] Last Admin: 07/15/23 20:15 Dose: 10 mg Enoxaparin Sodium (Enoxaparin Sodium 40 Mg/0.4 Ml Syringe) 40 mg SUBCUT Q24H [facility] Last Admin: 07/15/23 20:12 Dose: 40 mg Levothyroxine Sodium (Levothyroxine Sodium 75 Mcg Tablet) 75 mcg PO DAILY@0600 [facility] Last Admin: 07/16/23 05:32 Dose: 75 mcg Magnesium Hydroxide (Milk Of Magnesia 30 Ml Oral.Susp) 30 ml PO DAILY PRN PRN Reason: Constipation Nicotine Polacrilex (Nicotine Polacrilex 2 Mg Gum) 4 mg BUCCAL Q2H PRN PRN Reason: Nicotine Cravings Sertraline HCl (Sertraline Hcl 100 Mg Tablet) 100 mg PO DAILY [facility] Last Admin: 07/16/23 09:12 Dose: Not Given Trazodone HCl (Trazodone Hcl 25 Mg Halftab) 25 mg PO BEDTIME MRX1 PRN PRN Reason: Insomnia Last Admin: 07/14/23 21:59 Dose: 25 mg Allergies Allergies Allergy/AdvReac Type Severity Reaction Status Date / Time bee venom protein (honey bee) Allergy Severe Swelling Verified 06/29/23 12:07 Assessment & Plan Assessment & Plan (1) Major neurocognitive disorder: Status: Acute Code(s): F03.90 - Unspecified dementia, unspecified severity, without behavioral disturbance, psychotic disturbance, mood disturbance, and anxiety (2) Altered mental status: Status: Acute Code(s): R41.82 - Altered mental status, unspecified Assessment and Plan: He appears encephalopathic, probably superimposed on a baseline dementia. Infectious/metabolic etiologies need to be excluded. CT scan is unremarkable. Recommendations: EEG, lumbar puncture, TSH and serum ammonia. Recheck UTI and a chest x-ray (3) Major depressive disorder, recurrent, severe with psychotic features: Status: Acute Code(s): F33.3 - Major depressive disorder, recurrent, severe with psychotic symptoms Plan HPI: Patient with history recurrent depression cognitive impairment. Is seen by nurse practitioner outpatient and has been on mirtazapine Abilify sertraline. Patient did have ECT in 2021 patient has had worsening executive functioning gradual memory dysfunction the patient however was functioning ambulatory alert he had been somewhat more lethargic recently he had developed cough was eventually seen in the emergency room was noted to have RSV question of UTI the patient was scheduled to be discharged from the emergency room but not been eating for days and was barely functioning and referred to Psychiatry he had a period of delirium in the emergency room peer to clear and then again became depressed withdrawn Past Psychiatric History: Inpt: 03/2021; 02/2022 (received 7 ECT tx with good effect) Patient had initially initial CV I did invoke the patient's healthcare proxy and patient's who is healthcare proxy did verbally consent to psychiatric admission. The patient after admission to the psych unit has become increasingly withdrawn he is in a hospital bed he is not ambulating today was not eating or drinking and hospitalist service was consulted and intravenous fluids started. Patient when seen today was unable to respond to his name place or give any history was mostly incoherent or minimally arousable and lethargic. This is not how the patient presented last year when he was admitted to the [facility] and did have ECT at that time recent head CT was generally unremarkable microangiopathic changes noted See if patient response response intravenous fluids will hold mirtazapine Abilify for now patient is noted to have obstructive sleep apnea he does not appear to have classic catatonia does appear delirious question need for LP discussed with hospitalist service potential transfer to medical floor Vital signs have been unremarkable including pulse oxygen labs repeated afebrile continue workup Patient does have a history of psychotic depression current symptoms do not seem to be clearly indicated of of this diagnosis vs psych depression with confusional state no clear medical cause have consulted with hospitalist service repeatedly no clear medical etiology reprtedly was suicidal prior to adm at some pt Hospital course: 07/15 Met with patient; discussed with team; reviewed chart and discussed with Dr. Serna and Dr. Knapp in detail Patient remains with some type of delirium; so far no organic etiology uncovered; hospitalist continues to follow patient and is considering LP though given normal labs and vitals unlikely to help much with diagnosis. Dr. Serna agreed to DC Risperdal for now and keep other meds lowered. Was going to transfer patient to geriatric unit however will instead follow patient on M5 and consider ECT. -Earlier this morning when property underwriter met with patient communicating very little, mostly lying in bed, responding when his name is called but mumbling incoherently. Later on however property underwriter again met with pt when he was to be transferred for EEG, got agitated and told staff leave me alone.. -neurology consult placed Plan 1. We contacted the medical team for assessment since his medical condition has worsen it. He pull out his IV line and he looks more delirious as usual. We will follow closely. 2. Neurology saw him and reported that he looks more medically compromised that and psychiatric, most likely encephalopatic due to delirium. Reason for continued inpatient stay Substantial Risk for: inability to function, rapid decompensation and med/psych decompensation Time Spent With Patient Time: Total time managing care of this patient today __30__ minutes.
--- NOTE | 2023-07-16 11:09 | PM.PSYDC ---
DS: Providers Provider Date of Service: 07/16/23 Date of admission: 07/10/23 15:25 Date of discharge: 07/16/23 Primary care physician: Nishant Corral MD Consults: 07/11/23 13:02 Consult to Hospitalist Stat Comment: Consulting Provider: Hospitalist Reason For Exam: pt acutely confused not oriented not eating 07/13/23 10:42 Consult to Hospitalist Routine Comment: Consulting Provider: Hospitalist Reason For Exam: ECT CLEARANCE 07/14/23 15:05 Consult to Neurology Routine Consulting Provider: [facility] Reason for consultation: hx depression /gross acute confusion/not walking Has provider been notified: No Attending physician on discharge: Jose Knapp DS: Diagnosis Discharge Diagnosis (1) Major neurocognitive disorder: Status: Acute (2) Altered mental status: Status: Acute (3) Major depressive disorder, recurrent, severe with psychotic features: Status: Acute DS: Medications Discharge Medications Home Medications: Home Medications Medication Instructions Recorded Confirmed mirtazapine 15 mg tablet 15 mg PO BEDTIME 10/09/22 06/30/23 sertraline 50 mg tablet 175 mg PO DAILY 10/09/22 06/30/23 Previous Rx's Medication Instructions Recorded aripiprazole 5 mg tablet (Abilify) 5 mg PO DAILY@1600 30 days #30 tabs 02/21/22 levothyroxine 75 mcg tablet 75 mcg PO DAILY 30 days #30 tabs 02/21/22 simvastatin 20 mg tablet 20 mg PO BEDTIME 30 days #30 tabs 02/21/22 Mental Status Exam Mental Status Exam Patient Appearance: Disheveled Patient Orientation: Person Level of Consciousness: Disoriented and Restless Patient Behavior: Guarded Mood Description: Blunted Affect Description: Blunted Patient Cognition Impaired: Yes Ability to Follow Directions: Fair Speech Pattern: No Speech Hallucinations: None Delusions: Not Present Thought Process: Slowed Thinking Thought Content: positive for Poverty of Content Judgement: Poor Data Data Completed and Pending Completed studies during hospitalization [Text1]: 07/10/23 07/10/23 07/11/23 11:36 12:51 12:56 WBC 11.0 H RBC 5.02 Hgb 15.4 Hct 46.0 MCV 91.6 MCH 30.7 MCHC 33.5 RDW 12.4 Plt Count 245 MPV 9.2 L Immature Gran % (Auto) 0.3 Neut % (Auto) 81.5 H Lymph % (Auto) 10.1 L [place] % (Auto) 6.8 Eos % (Auto) 1.1 Baso % (Auto) 0.2 Lymph # (Auto) 1.1 L [place] # (Auto) 0.7 Eos # (Auto) 0.1 Baso # (Auto) 0.0 Abs Immat Gran (auto) 0.03 Absolute Neuts (auto) 8.9 H Absolute Nucleated RBC 0.000 Nucleated RBC % (auto) 0.0 Sodium 143 Potassium 3.8 Chloride 102 Carbon Dioxide 30 H Anion Gap 15 BUN 18 H Creatinine 0.79 Estim Creat Clear Calc 81.0 Estimated GFR > 60 Random Glucose 94 Calcium 9.8 Magnesium Total Bilirubin 0.3 AST 21 ALT 10 Alkaline Phosphatase 99 Ammonia 22 Total Protein 7.7 Albumin 3.3 L Vitamin B12 Folate TSH 2.49 Urine Color Dark Yellow Urine Appearance Clear Urine pH 5.5 Ur Specific [place] 1.025 Urine Protein Negative Urine Glucose (UA) Negative Urine Ketones 15 Urine Blood Moderate (2+) H Urine Nitrite Negative Ur Leukocyte Esterase Negative Urine RBC 3-5 H Urine WBC 0-5 Ur Squamous Epith Cells 0-2 Calcium Oxalate Crystal Urine Bacteria None Seen Hyaline Casts 0-2 Respiratory Panel Velasquez Adenovirus (Rapid PCR) B.pert (TEM-PCR) B.parapertussis DNA PCR C. pneumoniae DNA (PCR) Coronavirus OC43 (PCR) Coronavirus HKU1 (PCR) Coronavirus 229E (PCR) COVID-19 (BEV) Negative COVID-19 Clin Com See Note Coronavirus NL63 (PCR) Human Metapneumovir PCR Influenza A (RT-PCR) Influenza B (RT-PCR) M. pneumoniae (PCR) Parainfluenza 1 (PCR) Parainfluenza 2 (PCR) Parainfluenza 3 (PCR) Parainfluenza 4 (PCR) RSV (PCR) Entero/Rhino (PCR) SARS-CoV-2 RNA (RT-PCR) 07/11/23 07/11/23 07/12/23 13:01 14:35 07:19 WBC RBC Hgb Hct MCV MCH MCHC RDW Plt Count MPV Immature Gran % (Auto) Neut % (Auto) Lymph % (Auto) [place] % (Auto) Eos % (Auto) Baso % (Auto) Lymph # (Auto) [place] # (Auto) Eos # (Auto) Baso # (Auto) Abs Immat Gran (auto) Absolute Neuts (auto) Absolute Nucleated RBC Nucleated RBC % (auto) Sodium 143 Potassium 3.5 Chloride 103 Carbon Dioxide 28 Anion Gap 16 BUN 16 Creatinine 0.73 Estim Creat Clear Calc 87.7 Estimated GFR > 60 Random Glucose 85 Calcium 9.5 Magnesium 1.7 Total Bilirubin 0.4 AST 19 ALT 9 Alkaline Phosphatase 99 Ammonia Total Protein 7.6 Albumin 3.8 Vitamin B12 Folate TSH Cancelled Urine Color Urine Appearance Urine pH Ur Specific [place] Urine Protein Urine Glucose (UA) Urine Ketones Urine Blood Urine Nitrite Ur Leukocyte Esterase Urine RBC Urine WBC Ur Squamous Epith Cells Calcium Oxalate Crystal Urine Bacteria Hyaline Casts Respiratory Panel Velasquez See Note Adenovirus (Rapid PCR) Not Detected B.pert (TEM-PCR) Not Detected B.parapertussis DNA PCR Not Detected C. pneumoniae DNA (PCR) Not Detected Coronavirus OC43 (PCR) Not Detected Coronavirus HKU1 (PCR) Not Detected Coronavirus 229E (PCR) Not Detected COVID-19 (BEV) COVID-19 Clin Com Coronavirus NL63 (PCR) Not Detected Human Metapneumovir PCR Not Detected Influenza A (RT-PCR) Not Detected Influenza B (RT-PCR) Not Detected M. pneumoniae (PCR) Not Detected Parainfluenza 1 (PCR) Not Detected Parainfluenza 2 (PCR) Not Detected Parainfluenza 3 (PCR) Not Detected Parainfluenza 4 (PCR) Not Detected RSV (PCR) Detected A Entero/Rhino (PCR) Not Detected SARS-CoV-2 RNA (RT-PCR) Not Detected 07/12/23 07/13/23 07/14/23 11:51 13:25 08:35 WBC 8.8 RBC 5.04 Hgb 15.2 Hct 45.8 MCV 90.9 MCH 30.2 MCHC 33.2 RDW 12.2 Plt Count 254 MPV 9.1 L Immature Gran % (Auto) Neut % (Auto) Lymph % (Auto) [place] % (Auto) Eos % (Auto) Baso % (Auto) Lymph # (Auto) [place] # (Auto) Eos # (Auto) Baso # (Auto) Abs Immat Gran (auto) Absolute Neuts (auto) Absolute Nucleated RBC 0.000 Nucleated RBC % (auto) 0.0 Sodium 141 Potassium 3.5 Chloride 98 Carbon Dioxide 34 H Anion Gap 13 BUN 7 L Creatinine 0.77 Estim Creat Clear Calc 83.1 Estimated GFR > 60 Random Glucose 115 Calcium 9.6 Magnesium Total Bilirubin 0.4 AST 27 ALT 11 Alkaline Phosphatase 90 Ammonia Total Protein 7.3 Albumin 3.6 Vitamin B12 Pending Folate 13.0 TSH Urine Color Dark Yellow Urine Appearance Clear Urine pH 5.5 Ur Specific [place] 1.025 Urine Protein Negative Urine Glucose (UA) Negative Urine Ketones 15 Urine Blood Trace H Urine Nitrite Negative Ur Leukocyte Esterase Negative Urine RBC 3-5 H Urine WBC 0-5 Ur Squamous Epith Cells 0-2 Calcium Oxalate Crystal Present Urine Bacteria None Seen Hyaline Casts 3-5 Respiratory Panel Velasquez Adenovirus (Rapid PCR) B.pert (TEM-PCR) B.parapertussis DNA PCR C. pneumoniae DNA (PCR) Coronavirus OC43 (PCR) Coronavirus HKU1 (PCR) Coronavirus 229E (PCR) COVID-19 (BEV) COVID-19 Clin Com Coronavirus NL63 (PCR) Human Metapneumovir PCR Influenza A (RT-PCR) Influenza B (RT-PCR) M. pneumoniae (PCR) Parainfluenza 1 (PCR) Parainfluenza 2 (PCR) Parainfluenza 3 (PCR) Parainfluenza 4 (PCR) RSV (PCR) Entero/Rhino (PCR) SARS-CoV-2 RNA (RT-PCR) 06/29/23 19:57 Urine clean catch - Urine menjivar top Urine Culture - Final No growth. Imaging Diagnostic Imaging Impressions Chest X-Ray 06/29/23 13:55 IMPRESSION: No acute cardiopulmonary findings. Head CT 06/29/23 14:03 IMPRESSION: 1. No acute intracranial process. No evidence for intracranial hemorrhage, extra-axial fluid collection, space-occupying process, mass effect or hydrocephalus. 2. 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 Tiny remote lacunar infarct in the right putamen versus perivascular space, unchanged. 3. 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 Head CT 07/11/23 15:21 IMPRESSION: No acute intracranial process seen. DS: Summary Hospital Course Hospital Course: The patient is a 77-year-old male with a past history of major depressive disorder was brought into the facility for exacerbation of depression by his family. Please see the HPI of the admission note for further details. The patient is very well known since I treated him a few months ago, he carries a diagnosis of major depressive disorder he reported that he did well with ECT but eventually he relapsed after Thanksgiving. While he was in the unit his medical condition worsen it, we consulted the hospitalist and they decided to transfer him to Medicine for medical treatment. Time spent discussing smoking cessation with patient: 3 to 10 minutes Status at Discharge Cognitive/behavioral status at discharge: Impaired Functional status at discharge: bed bound Overall status at discharge: patient is not back to baseline Time Spent with Patient Time attestation: Total time managing care of this patient today __20__ minutes. Time spent: Less than 30 minutes Discharge Plan Discharge Anticipated Discharge Date/Time: 07/16/23 11:11 Patient Disposition: [facility] Discharge Diagnosis: Major depressive disorder Delirium Referrals: Jerrod Brown [Outside] Nishant Corral MD [Primary Care Provider] - 1 Week Discharge Medications: New acetaminophen 325 mg Tablet 650 mg PO Q6H PRN (Reason: Headache/Pain Mild Scale (1-3)) 30 Days Qty: 30 0RF atorvastatin 10 mg Tablet 10 mg PO BEDTIME 30 Days Qty: 30 0RF nicotine (polacrilex) 2 mg Gum 4 mg buccal Q2H PRN (Reason: Nicotine Cravings) 30 Days Qty: 30 0RF sertraline 100 mg Tablet 100 mg PO DAILY 30 Days Qty: 30 0RF enoxaparin 40 mg/0.4 mL Syringe 40 mg subcut Q24H 30 Days Qty: 12 0RF Continued levothyroxine 75 mcg tablet 75 mcg PO DAILY 30 Days Qty: 30 0RF Discontinued aripiprazole [Abilify] 5 mg Tablet 5 mg PO DAILY@1600 30 Days Qty: 30 0RF simvastatin 20 mg tablet 20 mg PO BEDTIME 30 Days Qty: 30 0RF sertraline 50 mg tablet 175 mg PO DAILY mirtazapine 15 mg tablet 15 mg PO BEDTIME Discharge Orders: Discharge Order (Routine); Ordered 07/16/23 Ordered By: Jose Knapp Diet: regular diet as tolerated Activity on Discharge: Rest with bed elevated Stand Alone Forms: Patient Portal Discharge page Care Plan Goals: Care plan goals were not achieved since the patient was medically stable Health Concerns: Medical team order transferred to the medical unit Plan of Treatment: Continue treatment with the medical team Assessment: Elderly male with a past history of major depressive disorder who was initially admitted to Psychiatry but he decompensated medical in his transferred to the medical team.
[2023-07-16 14:44] LABS: Vitamin B12 1981 pg/mL (200-900)
== END 2023-07-16 13:26 | disposition short-term general hospital (02) | DRG 885 ==
LOC: HO.ED 07-10 12:32 → HO.PM5 07-10 15:46 → HO.PGERI 07-15 12:14 → HO.PM5 07-15 14:49
PROVIDERS: Physician Assistant; Physician Assistant Medical; Psychiatry & Neurology Psychiatry; Student in an Organized Health Care Education/Training Program; Admitting Provider Psychiatry & Neurology Psychiatry; Emergency Provider Emergency Medicine; PCP Internal Medicine; Visit Provider Psychiatry & Neurology Psychiatry
DX: F33.3 Major depressive disorder, recurrent, severe with psychotic symptoms (principal); E03.9 Hypothyroidism, unspecified; E78.5 Hyperlipidemia, unspecified; F03.90 Unspecified dementia, unspecified severity, without behavioral disturbance, psychotic disturbance, mood disturbance, and anxiety; I10 Essential (primary) hypertension; G47.33 Obstructive sleep apnea (adult) (pediatric); Z20.822 Contact with and (suspected) exposure to COVID-19; Z87.891 Personal history of nicotine dependence; Z79.890 Hormone replacement therapy; Z79.899 Other long term (current) drug therapy
CPT/HCPCS: 0241U; 36415; 70450; 71045; 80048; 80053; 80076; 80307; 81001; 82140; 82550; 82607; 82746; 82947; 83690; 83735; 84443; 84484; 85025; 85027; 87086; 87633; 87635; 93005; 95816; 97116; 97162; 99285; J1650; J2060; J7120; S9485

== ENCOUNTER → 2023-06-29 12:05 | Outpatient (BNV) | payer MEDICARE, OTHER, SELFPAY | PROVIDERS: Emergency Provider Emergency Medicine; PCP Internal Medicine; Visit Provider Internal Medicine Cardiovascular Disease | DX: I49.1 Atrial premature depolarization (principal); R94.31 Abnormal electrocardiogram [ECG] [EKG] | CPT/HCPCS: 93010 ==

== ENCOUNTER → 2023-06-29 12:40 | Outpatient (BNV) | payer MEDICARE, OTHER, SELFPAY | PROVIDERS: Emergency Provider Emergency Medicine; PCP Internal Medicine; Visit Provider Social Worker | DX: F33.1 Major depressive disorder, recurrent, moderate (principal); F03.90 Unspecified dementia, unspecified severity, without behavioral disturbance, psychotic disturbance, mood disturbance, and anxiety | CPT/HCPCS: 99232; 99238; 99283; 99284; 99285; 99499 ==

== ENCOUNTER 2023-07-10 15:25 | Outpatient (BNV) | payer MEDICARE, OTHER, SELFPAY | END 2023-07-14 08:00 | PROVIDERS: Admitting Provider Psychiatry & Neurology Psychiatry; Emergency Provider Emergency Medicine; PCP Internal Medicine; Visit Provider Internal Medicine | DX: I49.3 Ventricular premature depolarization (principal) | CPT/HCPCS: 93010 ==

== ENCOUNTER → 2023-07-10 15:25 | Outpatient (BNV) | payer MEDICARE, OTHER, SELFPAY | PROVIDERS: Admitting Provider Psychiatry & Neurology Psychiatry; Emergency Provider Emergency Medicine; PCP Internal Medicine; Visit Provider Student in an Organized Health Care Education/Training Program | DX: Z02.2 Encounter for examination for admission to residential institution (principal); R41.82 Altered mental status, unspecified | CPT/HCPCS: 99429; 99499 ==

== ENCOUNTER → 2023-07-10 15:25 | Outpatient (BNV) | payer MEDICARE, OTHER, SELFPAY | PROVIDERS: Admitting Provider Psychiatry & Neurology Psychiatry; Emergency Provider Emergency Medicine; PCP Internal Medicine; Visit Provider Psychiatry & Neurology Psychiatry | DX: F33.3 Major depressive disorder, recurrent, severe with psychotic symptoms (principal); F03.90 Unspecified dementia, unspecified severity, without behavioral disturbance, psychotic disturbance, mood disturbance, and anxiety; R41.82 Altered mental status, unspecified | CPT/HCPCS: 90792; 99232; 99233 ==

== ENCOUNTER 2023-07-16 13:18 | Inpatient (IN) | payer MEDICARE, OTHER, SELFPAY ==
--- NOTE | ~2023-07-16 | XR_ITS ---
EXAMINATION: Chest and abdomen. CLINICAL INDICATION: Bilaterally US. Follow-up. COMPARISON: Chest 06/29/2023 TECHNIQUE: Chest one view. Abdomen one view. FINDINGS: CHEST: The lungs are well-expanded and clear of acute process. The heart size and pulmonary vascularity is normal. No gross bony abnormality seen. ABDOMEN: There is scattered stool and gas seen throughout the colon without significant distention. There is no acute organomegaly. There is evidence of previous right anterior abdominal wall hernia repair with mesh in place. No gross bony abnormality seen. XR/XR chest 1V IMPRESSION: 1. Unremarkable chest exam. 2. Moderate constipation. No acute process seen in the abdomen.
--- NOTE | ~2023-07-16 | US_ITS ---
EXAMINATION: US PELVIS, LIMITED CLINICAL INFORMATION: Right inguinal mobile hard mass. COMPARISON: None available. TECHNIQUE: Ultrasound scanning of the right inguinal region was performed utilizing high-resolution linear transducer. US/US pelvic limited FINDINGS/IMPRESSION: In the area of clinical concern a large hypoechoic peripherally calcified mass is noted with posterior acoustic shadowing, in the deep subcutaneous tissue, approximately measuring 3.5 x 2.8 x 2.4 cm. No internal vascularity is noted. Somewhat superior and lateral to the above-described mass focal area of heterogeneous echotexture is noted in the deep subcutaneous tissue with associated calcification measuring 0.8 x 0.4 x 0.6 cm. No internal vascularity is seen. Etiology of above described findings is unclear. There are no pertinent prior studies available for comparison.
--- NOTE | ~2023-07-16 | FL_ITS ---
EXAMINATION: XR LUMBAR PUNCTURE CLINICAL INFORMATION: Encephalopathy, worsening. COMPARISON: No prior LP. Head CT 07/11/2023 reviewed. TECHNIQUE: Using fluoroscopic guidance, the L4-L5 interlaminar space was identified, and the skin overlying was prepped and draped in usual sterile fashion. Subsequently, 5 mL of 1% lidocaine was utilized to anesthetize the skin and subcutaneous tissues overlying the expected puncture site. A 20-gauge quinke spinal needle was then introduced into the L4-L5 interlaminar space, and clear CSF was noted at the needle hub. Approximately 7 mL clear CSF was passively collected, and the needle was removed. Hemostasis was achieved and the puncture site was appropriately dressed. No immediate complication. Patient tolerated the procedure well. FLUOROSCOPY TIME: 0.2 minutes Solitary spot image obtained. DOSE AREA PRODUCT: 0.0521 Gy-m2 (menjivar-meter squared) FL/FL guided lumbar puncture LP IMPRESSION: Successful lumbar puncture with collection of 7 mL of clear appearing CSF. No immediate complication.
--- NOTE | ~2023-07-16 | XR_ITS ---
EXAMINATION: Chest and abdomen. CLINICAL INDICATION: Bilaterally US. Follow-up. COMPARISON: Chest 06/29/2023 TECHNIQUE: Chest one view. Abdomen one view. FINDINGS: CHEST: The lungs are well-expanded and clear of acute process. The heart size and pulmonary vascularity is normal. No gross bony abnormality seen. ABDOMEN: There is scattered stool and gas seen throughout the colon without significant distention. There is no acute organomegaly. There is evidence of previous right anterior abdominal wall hernia repair with mesh in place. No gross bony abnormality seen. XR/XR abdomen 1V IMPRESSION: 1. Unremarkable chest exam. 2. Moderate constipation. No acute process seen in the abdomen.
--- NOTE | 2023-07-16 13:24 | PM.IMHP ---
History of Present Illness Date of Service: 07/16/23 Chief Complaint: Encephalopathy A 77 years old male with PMH of Depression, ROYAL on CPAP, Dementia among others who was admitted to psych floor for memory decline and agitation. The patient has been worsening physically and mentally since thanksgiving per his . he is becoming more confused and sleepy with decrease oral intake and more lethargy. He was unable to provide any Hx so i spoke with his and psychiatrist who filled me with info. as for the last week he was monitored in the psych unit with no success in improving his mental status. evaluated by neurologist who is concern over a possible medical cause for his confusion. He tested positive for RSV recently but not requiring O2 supplement. CXR and UA negative Admitted for further work up. Review of Systems Review of Systems: .s Yes Unobtainable due to mental status PMFSH Medical History Depression Hypothyroidism Prostate cancer Depression HLD (hyperlipidemia) HTN (hypertension) Family History Other Prostate cancer Surgical History H/O prostatectomy History of hernia surgery Social History Household Members: Spouse Housing: House Do you presently have visiting nurse or other home services: No Unable to assess alcohol history related to: Unable to respond Alcohol intake: never Comment: 1:1 observation Patient Tobacco Use Status: Former Tobacco user Tobacco use type: Cigarette Cigarette Packs Per Day: 1 Cigarettes Per Day: 20.0 e-Cigarette/Vaping Use: Never Used Second Hand Smoke Exposure: No Advance Directives: No Advance Directives Date on File: 01/29/22 service: Yes ([employer] Sexual orientation: Straight/Heterosexual Meds Allergies Allergy/AdvReac Type Severity Reaction Status Date / Time bee venom protein (honey bee) Allergy Severe Swelling Verified 06/29/23 12:07 Active Medications: Current Medications Acetaminophen (Acetaminophen 325 Mg Tablet) 650 mg PO Q6H PRN PRN Reason: Pain, Mild (Pain Scale 1-3) Enoxaparin Sodium (Enoxaparin Sodium 40 Mg/0.4 Ml Syringe) 40 mg SUBCUT Q24H [facility] Dextrose/Sodium Chloride (D51/2ns) 1,000 mls @ 100 mls/hr IVCONT .Q10H SUJIT Ondansetron HCl (Ondansetron Hcl 4 Mg/2 Ml Vial) 4 mg IVPUSH Q8H PRN PRN Reason: Nausea and Vomiting Sodium Chloride (0.9 % Sodium Chloride Flush 3 Ml Syringe) 3 ml IVFLUSH QSHIFT [facility] Home Medications Medication Instructions Recorded Confirmed Last Taken Type levothyroxine 75 mcg tablet 75 mcg PO DAILY@0600 07/16/23 07/16/23 Unknown History Physical Exam Const: Other: Constitutional : sleepy and lethargic , not in distress Neck : Normal inspection, Supple Cardiovascular : RRR, no JVP, no lower extremity edema Respiratory : good bilateral air entry, no crackles, wheezes Gastrointestinal: soft, lax, Normal bowel sounds, Non tender Skin : Warm, Dry Neurological : response to physical stimuli, moving extremities, confused and sleepy Assessment and Plan (1) Altered mental status: Status: Acute (2) ROYAL (obstructive sleep apnea): Status: Acute (3) RSV infection: Status: Inactive Plan A 77 years old male with PMH of Depression, ROYAL on CPAP, Dementia among others who was admitted to psych floor for memory decline and agitation. Toxic metabolic encephalopathy DDx infection, medications, metabolic or toxic cause recent RSV infx; supportive measures CT negative, normal ammonia Neuro input appreciated; check EEG and LP CXR, AXR and UA for now FTT in elderly Start PPN IVF monitor I\O Encourage PO intake Depression, major psychiatry to follow HLD Atorvastatin Hypothyroid Levothyroxine DVT PPx Lovenox The patient will need 2 overnight hospital stay for evaluation of encephalopathy pending LP Quality Stroke Does the patient have a stroke diagnosis?: No VTE Prior VTE?: No VTE Risk Level:: Medical - moderate - high VTE Device Contraindication: Treatment Not Indicated VTE Drug Contraindication: N/A - Med Ordered
--- NOTE | 2023-07-16 13:43 | PHA.MEDREC ---
Pharmacy Consult ? Medication Reconciliation Pharmacy has completed the medication reconciliation. Patient recently discharged from earlier today. Utilized discharge order to confirm meds.
[2023-07-16 14:28] VITALS: O2SAT 95
[2023-07-16 14:31] VITALS: BP 179/83; PULSE 94; RESP 16; TEMP 36.6; O2SAT 95
[2023-07-16 14:31] LABS: ABG Base Excess 10.6 mmol/L; ABG HCO3 34 mmol/L (22-26); ABG pCO2 42 mmHg (32-45); ABG pH 7.51 (7.35-7.45); ABG pO2 75 mmHg (83-108)
[2023-07-16 14:50] LABS: ABG Refer to POC result
[2023-07-16 15:06] VITALS: BP 145/78; PULSE 83; RESP 18; TEMP 36.5; O2SAT 95
[2023-07-16] MEDS: Dextrose 5 % and 0.45 % NaCl 1,000 ML 100 ML IVCONT (18:08)
[2023-07-16 19:09] VITALS: BP 146/87; PULSE 98; RESP 20; TEMP 36; O2SAT 95
[2023-07-16 19:35] LABS: Estimated Glomerular Filt Rate > 60
[2023-07-17] VITALS (12 sets, daily range): BP systolic 110–161; BP diastolic 61–98; PULSE 98–138; RESP 16–26; TEMP 35.9–37.1; O2SAT 90–98; BMI 25.7
[2023-07-17] MEDS: Dextrose 5 % and 0.45 % NaCl 1,000 ML 100 ML IVCONT (03:06)
[2023-07-17 05:34] LABS: MANUAL DIFF FLAG NO
[2023-07-17 05:42] LABS: Basophils Percent Auto 0.3 % (0-2); Eosinophils Absolute Auto 0.1 X10*3/uL (0.0-0.4); Eosinophils Percent Auto 0.8 % (0-4); Hematocrit 41.8 % (42.0-52.0); Hemoglobin 14.2 g/dl (14.0-18.0); Imm Gran Abs Auto 0.02 X10*3/uL (0.00-0.03); Imm Gran Pct Auto 0.3 % (0.0-0.4); Lymphocytes Absolute Auto 0.8 X10*3/uL (1.2-4.9); Lymphocytes Percent Auto 9.7 % (20-40); Mean Corpuscular Hemoglobin 30.1 pg (27.0-33.0); Mean Corpuscular Volume 88.6 fL (80.0-98.0); Mean Platelet Volume 9.6 fL (9.4-12.4); Monocytes Absolute Auto 0.6 X10*3/uL (0.1-1.2); Monocytes Percent Auto 7.2 % (2-11); Neutrophils Absolute Auto 6.4 x10*3/uL (2.0-8.3); Neutrophils Percent Auto 81.7 % (45-73); Platelet Count 236 X10*3/uL (160-400); Red Blood Count 4.72 X10*6/uL (4.60-5.80); Red Cell Distribution Width 12.2 % (11.0-16.0); White Blood Count 7.8 X10*3/uL (4.8-10.8)
[2023-07-17 06:00] LABS: Anion Gap 15 (12-20); Blood Urea Nitrogen 12 mg/dL (9-16); Calcium 9.2 mg/dL (8.4-10.2); Carbon Dioxide 27 mmol/L (22-29); Chloride 98 mmol/L (96-108); Estimated Glomerular Filt Rate > 60; Glucose Random 131 mg/dL (60-115); Potassium 2.8 mmol/L (3.3-5.1); Sodium 137 mmol/L (135-145)
--- NOTE | 2023-07-17 06:32 | PC.NURSE ---
This RN attempted to provide mouth care to pt due to no PO intake of fluids or food and dry mouth. The pt started to get agitated and combative during the mouth care. The pt told this RN to stop .This RN attempted to encourage the pt to drink fluids and eat a snack but kept on refusing. 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 Bladder scan for 123ml. Will continue to monitor pt's urine output and encourage PO intake.
[2023-07-17 09:28] LABS: INTERNATIONAL NORM RATIO 1.5 (0.9-1.1); Prothrombin Time 18.6 SEC (11.1-13.3)
[2023-07-17] MEDS: LORazepam 2 MG/ML VIAL IVPUSH (09:28)
[2023-07-17 10:23] LABS: Albumin Level 3.5 g/dL (3.5-5.0); Magnesium 1.4 mg/dL (1.6-2.6); Phosphorus 1.5 mg/dL (2.7-4.5)
--- NOTE | 2023-07-17 10:27 | MHC.CLN ---
RE: CONSULT PT WITH UNRESOLVED AMS WITH PREVIOUS ADMISSION TO PSYCH UNIT WITH POOR PO INTAKE X 7 DAYS PT COMBATIVE AND RESISTIVE TO CARE/PO INTAKE REGULAR MECH SOFT GRD DIET-APPROPRIATE WILL ADD MAGIC CUP TID TO INCREASE KCALS MONITOR AND ENCOURAGE PO INTAKE TO START PPN PER MD REVIEWED LABS; DISCUSSED WITH PHARMACY RECOMMEND TODAY (07/17/23) PPN AT 40ML/HR TO PROVIDE 490KCALS, 96G DEXTROSE, 41G PROTEIN REPLETE LYTES NEEDED PROVIDER AWARE DAY 2 (07/18/23): INCREASE PPN TO 60ML/HR TO PROVIDE 734KCALS, 144G DEXTROSE, 61G PROTEIN REPLETE LYTES NEEDED; CHECK TRIGS DAY 3 (07/19/23) INCREASE PPN TO 80ML/HR WITH 92G LIPIDS TO PROVIDE 1898 TOTAL KCALS (28KCALS/KG), 192G DEXTROSE, 82G PROTEIN (1.2G/KG) REPLETE LYTES NEEDED CONTINUE TO MONITOR PO INTAKE CONSULT RD VIA TIGER CONNECT DURING OFF HOURS IF NEEDED
--- NOTE | 2023-07-17 11:16 | P.PNIM_ITS ---
Subjective Subjective Date of Service: 07/17/23 Interval History: Seen and evaluated this morning more alert and interactive but overall weak and fatigued LP planned today ESTHELA filled yesterday with his HCP over the phone Review of Systems Review of Systems: Yes all other systems are reviewed and are negative Physical Exam 2 Vital Signs: Vital Signs: Last Vital Signs Temp 96.8 F 07/17/23 11:15 Pulse 101 H 07/17/23 11:15 Resp 20 07/17/23 11:15 BP 110/68 07/17/23 11:15 Pulse Ox 94 07/17/23 11:15 O2 Del Method Room Air 07/17/23 11:15 BMI result Body Mass Index 25.7 Const: Other: Constitutional : sleepy and fatigued , not in distress Neck : Normal inspection, Supple Cardiovascular : RRR, no JVP, no lower extremity edema Respiratory : good bilateral air entry, no crackles, wheezes Gastrointestinal: soft, lax, Normal bowel sounds, Non tender Skin : Warm, Dry Neurological : alert with response to physical stimuli, moving extremities, confused and goes back to sleep quickly Objective Data Active Medications Acetaminophen (Acetaminophen 325 Mg Tablet) 650 mg PO Q6H PRN PRN Reason: Pain, Mild (Pain Scale 1-3) Al Hydroxide/Mg Hydroxide (Magnesium Hydrox/Alum Hydrox 30 Ml Oral.Susp) 30 ml PO Q6H PRN PRN Reason: Heartburn/Nausea Atorvastatin Calcium (Atorvastatin Calcium 10 Mg Tablet) 10 mg PO BEDTIME [facility] Last Admin: 07/16/23 21:28 Dose: Not Given Documented By: AMANDA Non-Admin Reason: pt refused, combative with care Enoxaparin Sodium (Enoxaparin Sodium 40 Mg/0.4 Ml Syringe) 40 mg SUBCUT Q24H [facility] Last Admin: 07/16/23 18:13 Dose: Not Given Documented By: RADHA Non-Admin Reason: Patient Refused Glycerin (Glycerin Adult Supp.Rect) 1 supp AL DAILY [facility] Potassium Phosphate (Kphos) 15 mmol in 250 mls @ 62.5 mls/hr IV Q4H [facility] Stop: 07/17/23 19:14 Nutrition (Parenteral) (Parenteral Nutrition) 960 mls @ 40 mls/hr IV .Q24H [facility]; Protocol Stop: 07/18/23 20:59 Levothyroxine Sodium (Levothyroxine Sodium 75 Mcg Tablet) 75 mcg PO DAILY@0600 [facility] Last Admin: 07/17/23 05:30 Dose: Not Given Documented By: AMANDA Non-Admin Reason: Patient Refused Lorazepam (Lorazepam 2 Mg/Ml Vial) 2 mg IVPUSH ONCE PRN PRN Reason: Pre-LP Last Admin: 07/17/23 09:28 Dose: 2 mg Documented By: CORNELIA Lorazepam (Lorazepam 2 Mg/Ml Vial) 1 mg IVPUSH ONCE PRN PRN Reason: anxiety/restlessness Magnesium Hydroxide (Milk Of Magnesia 30 Ml Oral.Susp) 30 ml PO DAILY PRN PRN Reason: Constipation Nicotine Polacrilex (Nicotine Polacrilex 2 Mg Gum) 4 mg BUCCAL Q2H PRN PRN Reason: Nicotine Cravings Ondansetron HCl (Ondansetron Hcl 4 Mg/2 Ml Vial) 4 mg IVPUSH Q8H PRN PRN Reason: Nausea and Vomiting Pharmacy Consult (Consult Rx Parenteral Nutrition Ordering) 1 each MISCELLANE DAILY PRN PRN Reason: Consult order Sertraline HCl (Sertraline Hcl 100 Mg Tablet) 100 mg PO DAILY [facility] Sodium Chloride (0.9 % Sodium Chloride Flush 3 Ml Syringe) 3 ml IVFLUSH QSHIFT [facility] Last Admin: 07/17/23 07:06 Dose: Not Given Documented By: RADHA Non-Admin Reason: IV Running Trazodone HCl (Trazodone Hcl 25 Mg Halftab) 25 mg PO BEDTIME MRX1 PRN PRN Reason: Insomnia Labs 07/17/23 05:15 07/17/23 05:15 Labs: Laboratory Results - last 24 hr 07/16/23 07/16/23 07/17/23 14:24 19:08 05:15 MCV 88.6 MCH 30.1 MCHC 34.0 RDW 12.2 Plt Count 236 MPV 9.6 Immature Gran % (Auto) 0.3 Neut % (Auto) 81.7 H Lymph % (Auto) 9.7 L Curry % (Auto) 7.2 Eos % (Auto) 0.8 Baso % (Auto) 0.3 Lymph # (Auto) 0.8 L Curry # (Auto) 0.6 Eos # (Auto) 0.1 Baso # (Auto) 0.0 Abs Immat Gran (auto) 0.02 Absolute Neuts (auto) 6.4 Absolute Nucleated RBC 0.000 Nucleated RBC % (auto) 0.0 PT INR O2 Saturation 95.0 ABG pH at Pt Temp 7.51 H ABG pCO2 at Pt Temp 42 ABG pO2 at Pt Temp 75 L ABG HCO3 34 H ABG Base Excess (Actual) 10.6 Anion Gap 15 Estim Creat Clear Calc TNP TNP Estimated GFR > 60 > 60 Random Glucose 131 H Calcium 9.2 Phosphorus 1.5 L Magnesium 1.4 L* Albumin 3.5 07/17/23 08:34 MCV MCH MCHC RDW Plt Count MPV Immature Gran % (Auto) Neut % (Auto) Lymph % (Auto) Curry % (Auto) Eos % (Auto) Baso % (Auto) Lymph # (Auto) Curry # (Auto) Eos # (Auto) Baso # (Auto) Abs Immat Gran (auto) Absolute Neuts (auto) Absolute Nucleated RBC Nucleated RBC % (auto) PT 18.6 H INR 1.5 H O2 Saturation ABG pH at Pt Temp ABG pCO2 at Pt Temp ABG pO2 at Pt Temp ABG HCO3 ABG Base Excess (Actual) Anion Gap Estim Creat Clear Calc Estimated GFR Random Glucose Calcium Phosphorus Magnesium Albumin Assessment and Plan (1) Altered mental status: Status: Acute (2) Toxic metabolic encephalopathy: Status: Acute (3) Acute hypokalemia: Status: Acute (4) Hypomagnesemia: Status: Acute (5) Hypophosphatemia: Status: Acute Plan A 77 years old male with PMH of Depression, ROYAL on CPAP, Dementia among others who was admitted to psych floor for memory decline and agitation. Toxic metabolic encephalopathy DDx infection, medications, metabolic or toxic cause recent RSV infx; supportive measures CT negative, normal ammonia Neuro input appreciated Pending EEG reading and LP results CXR, AXR and UA showed moderate constipation; to give laxatives Increase physical activity; out of bed to recliner PT eval FTT in elderly Start PPN dc IVF monitor I\O Encourage PO intake Electrolytes imbalance replace Mg, K, P follow BMP Depression, major psychiatry to follow HLD Atorvastatin Hypothyroid Levothyroxine DVT PPx Lovenox The patient will need overnight hospital stay for evaluation of encephalopathy pending LP result and clinical improvement Quality Stroke Does the patient have a stroke diagnosis?: No VTE Prior VTE?: No VTE Risk Level:: Medical - moderate - high VTE Device Contraindication: Treatment Not Indicated VTE Drug Contraindication: N/A - Med Ordered
--- NOTE | 2023-07-17 11:25 | MHC.CM.PN ---
spoke with pts ,they had no servcies prior to admisisons will talk with md about hosoice for pt corky
[2023-07-17] MEDS: Glycerin Adult SUPP.RECT 1 SUPP PR (11:35)
[2023-07-17] MEDS: Potassium Phosphate/NS 15 MMOL/250 ML PLAST..BAG 62.5 MMOL IV ×2 (11:35→18:09)
[2023-07-17 11:49] LABS: CSF Appearance Clear, Colorless
[2023-07-17 11:50] LABS: CSF Tube # 1
--- NOTE | 2023-07-17 11:56 | PC.NURSE ---
Strait cath with sterile technique, tolerated well, primary RN to send urine spec to LAB.
--- NOTE | 2023-07-17 12:02 | PC.NURSE ---
upon assessment a small hard mobile mass was palpated on pts left groin. Dr Ross made aware and came to bedside. ordered ultrasound.
[2023-07-17 12:10] LABS: Glucose CSF 71 mg/dL; Total Protein CSF 81.4 mg/dL (15-45)
[2023-07-17 12:23] LABS: Appearance Urine Turbid; Color Urine Dark Yellow; Glucose Urine UA Negative (Negative); Leukocyte Esterase Urine Large (3+) (Negative); Nitrite Urine Negative (Negative); PH 6.5 (5.0-9.0); UMIC TRIGGER UACC YES; Urine Blood Moderate (2+) (Negative); Urine Ketones 15 mg/dL (Negative); Urine Protein 30 (1+) mg/dL (Neg-Trace)
[2023-07-17 12:37] LABS: Bacteria Urine 4+ (None Seen); Squamous Epithelial Cell Urine 0-2 /HPF (0-2); UACC Culture Trigger YES; WBC Urine >50 /HPF (0-5)
[2023-07-17 12:56] LABS: Appearance CSF CLEAR; CSF Tube # 4; CSF Volume 0.5 ML; Color CSF COLORLESS
[2023-07-17 12:57] LABS: Lymphocytes CSF 100 %; Red Blood Cell CSF 85 MM*3; White Blood Cell CSF 8 MM*3
[2023-07-17 13:13] LABS: Cryptococcus neoformans/gattii Not Detected (Not Detect.); Enterovirus Not Detected (Not Detect.); Escherichia coli K1 Not Detected (Not Detect.); Haemophilus influenzae Not Detected (Not Detect.); Herpes simplex virus 1 Not Detected (Not Detect.); Herpes simplex virus 2 Not Detected (Not Detect.); Human herpesvirus 6 Not Detected (Not Detect.); Human parechovirus Not Detected (Not Detect.); Listeria monocytogenes Not Detected (Not Detect.); Neisseria meningitidis Not Detected (Not Detect.); Streptococcus agalactiae Not Detected (Not Detect.); Streptococcus pneumoniae Not Detected (Not Detect.); Varicella zoster virus Not Detected (Not Detect.)
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
[2023-07-17] MEDS: cefTRIAXone sodium 1 GM in 0.9 % Sodium Chloride 50 ML IV (15:32)
--- NOTE | 2023-07-17 16:10 | PM.NEUROPN ---
Subjective Subjective Date of Service: 07/17/23 Interval History: A bit more awake today but lethargic. Non focal exam Critical Care Time (minutes): 0 Physical Exam Vital Signs: Vital Signs: Last Vital Signs Temp 96.7 F L 07/17/23 15:20 Pulse 98 07/17/23 15:20 Resp 20 07/17/23 15:20 BP 161/98 H 07/17/23 15:20 Pulse Ox 95 07/17/23 15:20 O2 Del Method Room Air 07/17/23 15:20 BMI result Body Mass Index 25.7 Const: Other: Constitutional : sleepy and fatigued , not in distress Neck : Normal inspection, Supple Cardiovascular : RRR, no JVP, no lower extremity edema Respiratory : good bilateral air entry, no crackles, wheezes Gastrointestinal: soft, lax, Normal bowel sounds, Non tender Skin : Warm, Dry Neurological : alert with response to physical stimuli, moving extremities, confused and goes back to sleep quickly Objective Data Labs 07/17/23 05:15 07/17/23 05:15 Labs: Laboratory Results - last 24 hr 07/16/23 07/17/23 07/17/23 19:08 05:15 08:34 WBC 7.8 RBC 4.72 Hgb 14.2 Hct 41.8 L MCV 88.6 MCH 30.1 MCHC 34.0 RDW 12.2 Plt Count 236 MPV 9.6 Immature Gran % (Auto) 0.3 Neut % (Auto) 81.7 H Lymph % (Auto) 9.7 L [place] % (Auto) 7.2 Eos % (Auto) 0.8 Baso % (Auto) 0.3 Lymph # (Auto) 0.8 L [place] # (Auto) 0.6 Eos # (Auto) 0.1 Baso # (Auto) 0.0 Abs Immat Gran (auto) 0.02 Absolute Neuts (auto) 6.4 Absolute Nucleated RBC 0.000 Nucleated RBC % (auto) 0.0 PT 18.6 H INR 1.5 H Sodium 137 Potassium 2.8 L Chloride 98 Carbon Dioxide 27 Anion Gap 15 BUN 12 Creatinine 0.71 0.77 Estim Creat Clear Calc TNP TNP Estimated GFR > 60 > 60 Random Glucose 131 H Calcium 9.2 Phosphorus 1.5 L Magnesium 1.4 L* Albumin 3.5 Urine Color Urine Appearance Urine pH Ur Specific [place] Urine Protein Urine Glucose (UA) Urine Ketones Urine Blood Urine Nitrite Ur Leukocyte Esterase Urine RBC Urine WBC Ur Squamous Epith Cells Urine Bacteria Hyaline Casts CSF Tube Number CSF Volume CSF Appearance CSF Color CSF WBC CSF RBC CSF Lymphocytes CSF Appearance (b) CSF Glucose CSF Total Protein CSF C.neoform/gat PCR CSF CMV DNA (PCR) CSF Enterovirus (PCR) CSF E. coli K1 (PCR) CSF H. influenzae (PCR) CSF HSV I (PCR) CSF HSV II (PCR) CSF HHV 6 (PCR) CSF L.monocytogenes PCR CSF N. meningitidis PCR CSF Parechovirus (PCR) CSF S. agalactiae (PCR) CSF S. pneumoniae (PCR) CSF VZV (PCR) 07/17/23 07/17/23 07/17/23 10:30 10:30 12:06 WBC RBC Hgb Hct MCV MCH MCHC RDW Plt Count MPV Immature Gran % (Auto) Neut % (Auto) Lymph % (Auto) [place] % (Auto) Eos % (Auto) Baso % (Auto) Lymph # (Auto) [place] # (Auto) Eos # (Auto) Baso # (Auto) Abs Immat Gran (auto) Absolute Neuts (auto) Absolute Nucleated RBC Nucleated RBC % (auto) PT INR Sodium Potassium Chloride Carbon Dioxide Anion Gap BUN Creatinine Estim Creat Clear Calc Estimated GFR Random Glucose Calcium Phosphorus Magnesium Albumin Urine Color Dark Yellow Urine Appearance Turbid Urine pH 6.5 Ur Specific [place] 1.020 Urine Protein 30 (1+) H Urine Glucose (UA) Negative Urine Ketones 15 Urine Blood Moderate (2+) H Urine Nitrite Negative Ur Leukocyte Esterase Large (3+) H Urine RBC 3-5 H Urine WBC >50 H Ur Squamous Epith Cells 0-2 Urine Bacteria 4+ Hyaline Casts 6-10 CSF Tube Number 1 4 CSF Volume 0.5 CSF Appearance CLEAR CSF Color COLORLESS CSF WBC 8 CSF RBC 85 CSF Lymphocytes 100 CSF Appearance (b) Clear, Colorless CSF Glucose 71 CSF Total Protein 81.4 H CSF C.neoform/gat PCR Not Detected CSF CMV DNA (PCR) Not Detected CSF Enterovirus (PCR) Not Detected CSF E. coli K1 (PCR) Not Detected CSF H. influenzae (PCR) Not Detected CSF HSV I (PCR) Not Detected CSF HSV II (PCR) Not Detected CSF HHV 6 (PCR) Not Detected CSF L.monocytogenes PCR Not Detected CSF N. meningitidis PCR Not Detected CSF Parechovirus (PCR) Not Detected CSF S. agalactiae (PCR) Not Detected CSF S. pneumoniae (PCR) Not Detected CSF VZV (PCR) Not Detected Microbiology Microbiology Results: Microbiology 07/17/23 10:30 Cerebrospinal Fluid Gram Stain - Final 07/17/23 10:30 Cerebrospinal Fluid CSF Examination - Final 07/17/23 10:30 Cerebrospinal Fluid Fluid Description - Final Progress Note: A&P Assessment and plan (1) Toxic metabolic encephalopathy: Status: Acute Assessment and Plan: His EEG shows diffuse slowing. No seizure activity of focal abnormality. LP shows elevated protein an dwhite cells 8 lymphs. Could be suggestive of aseptic meningitis. Encephalitis panel and cultures pending. Continue supportive care. If subsequent results suggest meningo encephalitis then ID consult (2) Major depressive disorder, recurrent, severe with psychotic features: Status: Acute (3) Major neurocognitive disorder: Status: Acute (4) ROYAL (obstructive sleep apnea): Status: Acute Plan The patient is an elderly male with a past history of major depressive disorder who was initially admitted in in to Psychiatry for exacerbation of depression but later on he decompensated and transferring to medicine. He has been fully medically workout and apparently he has a UTI. At this moment on delirium. Plan 1. Continue with Zoloft as prescribed his not medically contraindicated. 2. Used Ativan IV push 1 mg Q 6 hours p.r.n. agitation. 3. If the patient is really agitated and he is violent and aggressive we can using press at 2.5 mg p.o. IM Q 8 hours p.r.n. severe agitation. 4. Reassessment as demand. 5. On medically cleared the patient should be transfer back to the area trach Psychiatry. Time Spent With Patient Time: Total time managing care of this patient today ____ minutes. Procedures Date of Service Date of Service: 07/17/23 Quality Stroke Does the patient have a stroke diagnosis?: No VTE Prior VTE?: No VTE Risk Level:: Medical - moderate - high VTE Device Contraindication: Treatment Not Indicated VTE Drug Contraindication: N/A - Med Ordered
[2023-07-17] MEDS: Magnesium Sulfate/H2O 2 GM/50 ML PIGGYBACK IV (16:24)
--- NOTE | 2023-07-17 21:24 | PC.NURSE ---
patient very drowsy, CPAP applied by respiratory, pulse [address] Mosqueda notified, advised to monitor for couple of hrs and update him.
[2023-07-17] MEDS: Metoprolol Tartrate 5 MG/5 ML VIAL IVPUSH (22:22)
[2023-07-17] MEDS: Potassium Chloride/H20 10 MEQ/100 ML PIGGYBACK 100 MEQ IV ×2 (22:43→23:43)
[2023-07-17] MEDS: Parenteral Nutrition 960 ML 40 ML IV (23:11)
--- NOTE | 2023-07-17 23:17 | PC.NURSE ---
PPN infusion started late due to potassium and other priority meds administration. Patient is hard to find IV access and now we were able to obtain a second IV site. Decrease in pulse after metoprolol administration, patient is receiving IV potassium now. Tele pack on, sinus tachy at this time. Still quite drowsy.
[2023-07-18] VITALS (9 sets, daily range): BP systolic 90–117; BP diastolic 46–96; PULSE 92–127; RESP 16–26; TEMP 36.1–37.1; O2SAT 93–98
[2023-07-18] MEDS: Metoprolol Tartrate 5 MG/5 ML VIAL IVPUSH (03:31)
[2023-07-18] MEDS: Morphine Sulfate 2 MG/ML CARTRIDGE IVPUSH ×3 (05:11→22:02)
[2023-07-18 06:02] LABS: Anion Gap 17 (12-20); Blood Urea Nitrogen 18 mg/dL (9-16); Calcium 9.2 mg/dL (8.4-10.2); Carbon Dioxide 26 mmol/L (22-29); Chloride 99 mmol/L (96-108); Creatinine Clr Calc Pharmacy 47.9; Estimated Glomerular Filt Rate > 60; Glucose Random 144 mg/dL (60-115); Magnesium 1.8 mg/dL (1.6-2.6); Potassium 3.8 mmol/L (3.3-5.1); Sodium 138 mmol/L (135-145)
--- NOTE | 2023-07-18 10:12 | HO.PM.IMPN ---
Subjective Subjective Date of Service: 07/18/23 Interval History: Seen and evaluated this morning less alert and interactive overall weak and frail LP showed elevated PRotein, pending cultures restless and agitated overnight Review of Systems Review of Systems: Yes Unobtainable due to mental status Physical Exam Vital Signs: Vital Signs: Last Vital Signs Temp 97.0 F 07/18/23 07:09 Pulse 94 07/18/23 07:09 Resp 20 07/18/23 07:09 BP 108/50 L 07/18/23 07:09 Pulse Ox 93 07/18/23 07:09 O2 Del Method Room Air, CPAP 07/18/23 07:09 O2 Flow Rate 3 07/17/23 19:15 BMI result Body Mass Index 25.7 Const: Other: Constitutional : sleepy and fatigued , not in distress Neck : Normal inspection, Supple Cardiovascular : RRR, no JVP, no lower extremity edema Respiratory : good bilateral air entry, no crackles, wheezes Gastrointestinal: soft, lax, Normal bowel sounds, Non tender Skin : Warm, Dry Neurological : alert with response to physical stimuli, moving extremities, confused and goes back to sleep quickly Objective Data Active Medications Acetaminophen (Acetaminophen 325 Mg Tablet) 650 mg PO Q6H PRN PRN Reason: Pain, Mild (Pain Scale 1-3) Al Hydroxide/Mg Hydroxide (Magnesium Hydrox/Alum Hydrox 30 Ml Oral.Susp) 30 ml PO Q6H PRN PRN Reason: Heartburn/Nausea Atorvastatin Calcium (Atorvastatin Calcium 10 Mg Tablet) 10 mg PO BEDTIME [facility] Last Admin: 07/17/23 21:16 Dose: Not Given Documented By: LORI Non-Admin Reason: pt very drowsy Enoxaparin Sodium (Enoxaparin Sodium 40 Mg/0.4 Ml Syringe) 40 mg SUBCUT Q24H [facility] Last Admin: 07/17/23 17:35 Dose: Not Given Documented By: RADHA Non-Admin Reason: Patient Refused Glycerin (Glycerin Adult Supp.Rect) 1 supp AL DAILY [facility] Last Admin: 07/17/23 11:35 Dose: 1 supp Documented By: RADHA Nutrition (Parenteral) (Parenteral Nutrition) 960 mls @ 40 mls/hr IV .Q24H [facility]; Protocol Stop: 07/18/23 20:59 Last Admin: 07/17/23 23:11 Dose: 40 mls/hr Documented By: LORI Ceftriaxone Sodium 1 gm/ (Sodium Chloride) 50 mls @ 100 mls/hr IV Q24H [facility] Last Infusion: 07/17/23 16:31 Dose: Infused Documented By: RADHA Levothyroxine Sodium (Levothyroxine Sodium 75 Mcg Tablet) 75 mcg PO DAILY@0600 [facility] Last Admin: 07/18/23 05:37 Dose: Not Given Documented By: LORI Non-Admin Reason: drowsy not able to swallow Lorazepam (Lorazepam 2 Mg/Ml Vial) 2 mg IVPUSH ONCE PRN PRN Reason: Pre-LP Last Admin: 07/17/23 09:28 Dose: 2 mg Documented By: CORNELIA Lorazepam (Lorazepam 2 Mg/Ml Vial) 1 mg IVPUSH ONCE PRN PRN Reason: anxiety/restlessness Magnesium Hydroxide (Milk Of Magnesia 30 Ml Oral.Susp) 30 ml PO DAILY PRN PRN Reason: Constipation Nicotine Polacrilex (Nicotine Polacrilex 2 Mg Gum) 4 mg BUCCAL Q2H PRN PRN Reason: Nicotine Cravings Ondansetron HCl (Ondansetron Hcl 4 Mg/2 Ml Vial) 4 mg IVPUSH Q8H PRN PRN Reason: Nausea and Vomiting Pharmacy Consult (Consult Rx Parenteral Nutrition Ordering) 1 each MISCELLANE DAILY PRN PRN Reason: Consult order Sertraline HCl (Sertraline Hcl 100 Mg Tablet) 100 mg PO DAILY [facility] Last Admin: 07/18/23 09:01 Dose: Not Given Documented By: BLAS Non-Admin Reason: unable, too drowsy Sodium Chloride (0.9 % Sodium Chloride Flush 3 Ml Syringe) 3 ml IVFLUSH QSHIFT [facility] Last Admin: 07/18/23 09:01 Dose: Not Given Documented By: BLAS Non-Admin Reason: IV Running Trazodone HCl (Trazodone Hcl 25 Mg Halftab) 25 mg PO BEDTIME MRX1 PRN PRN Reason: Insomnia Labs 07/17/23 05:15 07/18/23 05:17 Labs: Laboratory Results - last 24 hr 07/17/23 07/17/23 07/17/23 05:15 10:30 10:30 Hold Purple Top Anion Gap Estim Creat Clear Calc Estimated GFR Random Glucose Calcium Phosphorus 1.5 L Magnesium 1.4 L* Albumin 3.5 Urine Color Urine Appearance Urine pH Ur Specific [place] Urine Protein Urine Glucose (UA) Urine Ketones Urine Blood Urine Nitrite Ur Leukocyte Esterase Urine RBC Urine WBC Ur Squamous Epith Cells Urine Bacteria Hyaline Casts CSF Tube Number 1 4 CSF Volume 0.5 CSF Appearance CLEAR CSF Color COLORLESS CSF WBC 8 CSF RBC 85 CSF Lymphocytes 100 CSF Appearance (b) Clear, Colorless CSF Glucose 71 CSF Total Protein 81.4 H CSF C.neoform/gat PCR Not Detected CSF CMV DNA (PCR) Not Detected CSF Enterovirus (PCR) Not Detected CSF E. coli K1 (PCR) Not Detected CSF H. influenzae (PCR) Not Detected CSF HSV I (PCR) Not Detected CSF HSV II (PCR) Not Detected CSF HHV 6 (PCR) Not Detected CSF L.monocytogenes PCR Not Detected CSF N. meningitidis PCR Not Detected CSF Parechovirus (PCR) Not Detected CSF S. agalactiae (PCR) Not Detected CSF S. pneumoniae (PCR) Not Detected CSF VZV (PCR) Not Detected 07/17/23 07/18/23 12:06 05:17 Hold Purple Top SEE NOTE Anion Gap 17 Estim Creat Clear Calc 47.9 Estimated GFR > 60 Random Glucose 144 H Calcium 9.2 Phosphorus Magnesium 1.8 Albumin Urine Color Dark Yellow Urine Appearance Turbid Urine pH 6.5 Ur Specific [place] 1.020 Urine Protein 30 (1+) H Urine Glucose (UA) Negative Urine Ketones 15 Urine Blood Moderate (2+) H Urine Nitrite Negative Ur Leukocyte Esterase Large (3+) H Urine RBC 3-5 H Urine WBC >50 H Ur Squamous Epith Cells 0-2 Urine Bacteria 4+ Hyaline Casts 6-10 CSF Tube Number CSF Volume CSF Appearance CSF Color CSF WBC CSF RBC CSF Lymphocytes CSF Appearance (b) CSF Glucose CSF Total Protein CSF C.neoform/gat PCR CSF CMV DNA (PCR) CSF Enterovirus (PCR) CSF E. coli K1 (PCR) CSF H. influenzae (PCR) CSF HSV I (PCR) CSF HSV II (PCR) CSF HHV 6 (PCR) CSF L.monocytogenes PCR CSF N. meningitidis PCR CSF Parechovirus (PCR) CSF S. agalactiae (PCR) CSF S. pneumoniae (PCR) CSF VZV (PCR) Microbiology Microbiology Results: Microbiology 07/17/23 10:30 Gram Stain - Final Cerebrospinal Fluid CSF Examination - Final Fluid Description - Final CSF Culture - Preliminary No growth after 1 day Assessment and Plan (1) Hypophosphatemia: Status: Acute (2) Hypomagnesemia: Status: Acute (3) Acute hypokalemia: Status: Acute (4) Toxic metabolic encephalopathy: Status: Acute Plan A 77 years old male with PMH of Depression, ROYAL on CPAP, Dementia among others who was admitted to psych floor for memory decline and agitation. Toxic metabolic encephalopathy Likely a result of viral encephalitis on top of advanced dementia given elevated Protein in LP recent RSV infx; supportive measures CT negative, normal ammonia Neuro input appreciated Negative encephalitis panel Pending EEG reading and LP cultures, Increase physical activity; out of bed to recliner PT eval FTT in elderly Continue PPN monitor I\O Encourage PO intake UTI on IV antibiotics follow cultures Electrolytes imbalance replace Mg, K, P follow BMP Depression, major psychiatry to follow HLD Atorvastatin Hypothyroid Levothyroxine DVT PPx Lovenox ACP: Discussed goals of care with his and HCP Gloria who is consider hospice care at this level. will start the process of discussion as she made it clear that no heroic measures or invasive procedures. The patient will need overnight hospital stay for evaluation of encephalopathy pending LP results and clinical improvement Quality Stroke Does the patient have a stroke diagnosis?: No VTE Prior VTE?: No VTE Risk Level:: Medical - moderate - high VTE Device Contraindication: Treatment Not Indicated VTE Drug Contraindication: N/A - Med Ordered
[2023-07-18] MEDS: Glycerin Adult SUPP.RECT 1 SUPP PR (10:30)
[2023-07-18 10:39] LABS: Albumin Level 3.5 g/dL (3.5-5.0); Phosphorus 3.6 mg/dL (2.7-4.5); Triglycerides 76 mg/dL (<150)
[2023-07-18] MEDS: cefTRIAXone sodium 1 GM in 0.9 % Sodium Chloride 50 ML IV (14:48)
[2023-07-18] MEDS: 0.9 % Sodium Chloride Flush 3 ML SYRINGE IVFLUSH ×2 (14:59→21:42)
[2023-07-18] MEDS: Enoxaparin Sodium 40 MG/0.4 ML SYRINGE SUBCUT (16:51)
[2023-07-18] MEDS: Parenteral Nutrition 1,440 ML 60 ML IV (21:42)
[2023-07-19 00:06] VITALS: PULSE 86; O2SAT 94
[2023-07-19] MEDS: Morphine Sulfate 2 MG/ML CARTRIDGE IVPUSH ×3 (02:09→14:09)
[2023-07-19 03:23] VITALS: BP 121/71; PULSE 79; RESP 16; TEMP 36; O2SAT 95
[2023-07-19 06:39] LABS: Albumin Level 3.1 g/dL (3.5-5.0); Anion Gap 14 (12-20); Blood Urea Nitrogen 24 mg/dL (9-16); Calcium 9.1 mg/dL (8.4-10.2); Carbon Dioxide 27 mmol/L (22-29); Chloride 103 mmol/L (96-108); Creatinine Clr Calc Pharmacy 65.5; Estimated Glomerular Filt Rate > 60; Glucose Random 127 mg/dL (60-115); Magnesium 2.1 mg/dL (1.6-2.6); Phosphorus 2.8 mg/dL (2.7-4.5); Potassium 3.7 mmol/L (3.3-5.1); Sodium 140 mmol/L (135-145); Triglycerides 104 mg/dL (<150)
[2023-07-19 07:16] VITALS: BP 105/64; PULSE 74; RESP 16; TEMP 36.6; O2SAT 95
--- NOTE | 2023-07-19 10:29 | P.PNIM_ITS ---
Subjective Subjective Date of Service: 07/19/23 Interval History: Seen and evaluated this morning less alert and interactive, barely waking up overall weak and frail LP showed elevated PRotein, pending cultures restless overnight Review of Systems Review of Systems: Yes Unobtainable due to mental status Physical Exam 2 Vital Signs: Vital Signs: Last Vital Signs Temp 97.8 F 07/19/23 07:16 Pulse 74 07/19/23 07:16 Resp 16 07/19/23 07:16 BP 105/64 07/19/23 07:16 Pulse Ox 95 07/19/23 07:16 O2 Del Method Nasal Cannula 07/19/23 07:16 O2 Flow Rate 2 07/19/23 07:16 BMI result Body Mass Index 25.7 Const: Other: Constitutional : sleepy and fatigued , not in distress Neck : Normal inspection, Supple Cardiovascular : RRR, no JVP, no lower extremity edema Respiratory : good bilateral air entry, no crackles, wheezes Gastrointestinal: soft, lax, Normal bowel sounds, Non tender Skin : Warm, Dry Neurological : difficult to arouse even with physical stimuli, moving extremities and moaning on occasions Objective Data Active Medications Acetaminophen (Acetaminophen 325 Mg Tablet) 650 mg PO Q6H PRN PRN Reason: Pain, Mild (Pain Scale 1-3) Al Hydroxide/Mg Hydroxide (Magnesium Hydrox/Alum Hydrox 30 Ml Oral.Susp) 30 ml PO Q6H PRN PRN Reason: Heartburn/Nausea Atorvastatin Calcium (Atorvastatin Calcium 10 Mg Tablet) 10 mg PO BEDTIME [facility] Last Admin: 07/18/23 21:42 Dose: Not Given Documented By: LORI Non-Admin Reason: pt drowsy Enoxaparin Sodium (Enoxaparin Sodium 40 Mg/0.4 Ml Syringe) 40 mg SUBCUT Q24H [facility] Last Admin: 07/18/23 16:51 Dose: 40 mg Documented By: BLAS Glycerin (Glycerin Adult Supp.Rect) 1 supp IN DAILY [facility] Last Admin: 07/18/23 10:30 Dose: 1 supp Documented By: BLAS Nutrition (Parenteral) (Parenteral Nutrition) 1,440 mls @ 60 mls/hr IV .Q24H [facility]; Protocol Stop: 07/19/23 20:59 Last Admin: 07/18/23 21:42 Dose: 60 mls/hr Documented By: LORI Ampicillin Sodium 500 mg/ (Sodium Chloride) 50 mls @ 100 mls/hr IV Q6H [facility] Nutrition (Parenteral) (Parenteral Nutrition) 1,920 mls @ 80 mls/hr IV .Q24H [facility]; Protocol Stop: 07/20/23 20:59 Levothyroxine Sodium (Levothyroxine Sodium 75 Mcg Tablet) 75 mcg PO DAILY@0600 [facility] Last Admin: 07/19/23 05:54 Dose: Not Given Documented By: LORI Non-Admin Reason: drowsy,unable to swallow Lorazepam (Lorazepam 2 Mg/Ml Vial) 2 mg IVPUSH ONCE PRN PRN Reason: Pre-LP Last Admin: 07/17/23 09:28 Dose: 2 mg Documented By: CORNELIA Lorazepam (Lorazepam 2 Mg/Ml Vial) 1 mg IVPUSH ONCE PRN PRN Reason: anxiety/restlessness Lorazepam (Lorazepam 2 Mg/Ml Vial) 0.5 mg IVPUSH Q6H PRN PRN Reason: anxiety/restlessness Magnesium Hydroxide (Milk Of Magnesia 30 Ml Oral.Susp) 30 ml PO DAILY PRN PRN Reason: Constipation Morphine Sulfate (Morphine Sulfate 2 Mg/Ml Cartridge) 2 mg IVPUSH Q2H PRN; Protocol PRN Reason: Pain, Severe (Pain Scale 7-10) Last Admin: 07/19/23 06:18 Dose: 2 mg Documented By: LORI Nicotine Polacrilex (Nicotine Polacrilex 2 Mg Gum) 4 mg BUCCAL Q2H PRN PRN Reason: Nicotine Cravings Ondansetron HCl (Ondansetron Hcl 4 Mg/2 Ml Vial) 4 mg IVPUSH Q8H PRN PRN Reason: Nausea and Vomiting Pharmacy Consult (Consult Rx Parenteral Nutrition Ordering) 1 each MISCELLANE DAILY PRN PRN Reason: Consult order Sertraline HCl (Sertraline Hcl 100 Mg Tablet) 100 mg PO DAILY [facility] Last Admin: 07/19/23 09:06 Dose: Not Given Documented By: BLAS Non-Admin Reason: unable to safely take po Sodium Chloride (0.9 % Sodium Chloride Flush 3 Ml Syringe) 3 ml IVFLUSH QSHIFT [facility] Last Admin: 07/19/23 07:51 Dose: Not Given Documented By: BLAS Non-Admin Reason: IV Running Trazodone HCl (Trazodone Hcl 25 Mg Halftab) 25 mg PO BEDTIME MRX1 PRN PRN Reason: Insomnia Labs 07/17/23 05:15 07/19/23 05:52 Labs: Laboratory Results - last 24 hr 07/18/23 07/19/23 05:17 05:52 Hold Purple Top SEE NOTE Anion Gap 14 Estim Creat Clear Calc 65.5 Estimated GFR > 60 Random Glucose 127 H Calcium 9.1 Phosphorus 3.6 2.8 Magnesium 2.1 Albumin 3.5 3.1 L Triglycerides 76 104 Microbiology Microbiology Results: Microbiology 07/17/23 10:30 Gram Stain - Final Cerebrospinal Fluid CSF Examination - Final Fluid Description - Final CSF Culture - Preliminary No growth after 2 days 07/17/23 Unknown Urine Culture - Final Urine Catheterized - Straight Catheter Enterococcus faecalis Assessment and Plan (1) Hypophosphatemia: Status: Acute (2) Hypomagnesemia: Status: Acute (3) Acute hypokalemia: Status: Acute (4) Toxic metabolic encephalopathy: Status: Acute (5) UTI (urinary tract infection): Status: Acute Plan A 77 years old male with PMH of Depression, ROYAL on CPAP, Dementia among others who was admitted to psych floor for memory decline and agitation. Toxic metabolic encephalopathy Likely a result of viral encephalitis on top of advanced dementia given elevated Protein in LP recent RSV infx; supportive measures CT negative, normal ammonia Neuro input appreciated, could be aseptic meningitis Negative encephalitis panel Negative EEG for seizures Pending LP cultures, At this point the plan is to discharge home Thursday on hospice but his HCP wants to treat up to that point. FTT in elderly Continue PPN monitor I\O Encourage PO intake UTI Cx growing Entercoccus change Abx to Ampicillin Electrolytes imbalance replace Mg, K, P follow BMP Depression, major psychiatry to follow HLD Atorvastatin Hypothyroid Levothyroxine DVT PPx Lovenox ACP: Discussed goals of care with his and HCP Gloria who is consider hospice care at this level. will start the process of discussion as she made it clear that no heroic measures or invasive procedures. The patient will need overnight hospital stay for evaluation of encephalopathy pending LP results and clinical improvement Quality Stroke Does the patient have a stroke diagnosis?: No VTE Prior VTE?: No VTE Risk Level:: Medical - moderate - high VTE Device Contraindication: Treatment Not Indicated VTE Drug Contraindication: N/A - Med Ordered
[2023-07-19] MEDS: Glycerin Adult SUPP.RECT 1 SUPP PR (10:48)
[2023-07-19] MEDS: Ampicillin Sodium 500 MG in 0.9 % Sodium Chloride 50 ML 100 MG IV ×3 (10:48→22:07)
--- NOTE | 2023-07-19 14:49 | MHC.CM.PN ---
CM SPOKE TO PTS VIA T/C YESTERDAY SHE REPORTED SHE WOULD LIKE THE PT TO RETURN HOME WITH HOSPICE SERVICES SHE CONFIRMED SHE HAS BEEN PROVIDING 24/ CARE TO PT BATT PACKER AND HAS OTHER FAMILY IN THE AREA THAT HELPS PRN SHE WAS GOING TO CALL A FAMILY MEMBER TO DETERMINE WHAT AGENCY THEY HAD USED SHE CALLED BACK YESTERDAY AFTERNOON AND STATED HER FAMILY MEMBER DID NOT HAVE A RECOMMENDATION, HOWEVER SHE HAD FILLED OUT SOME INFORMATION ONLINE WITH [facility] MADE TO [facility] THEY HAVE CONFIRMED THEY SPOKE TO PT AND SHOULD HAVE ALL DME TO THE HOME FOR DC Thursday PTS REPORTEDLY NEEDED SOMETIME TO GET THE HOME READY THE LADLER WILL BE AT PTS HOME AT 1300 HOURS ON THURSDAY TO ADMIT HIM TO SERVICE
[2023-07-19 15:22] VITALS: BP 135/64; PULSE 71; RESP 20; TEMP 35.9; O2SAT 98
[2023-07-19] MEDS: Enoxaparin Sodium 40 MG/0.4 ML SYRINGE SUBCUT (17:28)
--- NOTE | 2023-07-19 17:55 | PC.NURSE ---
Pt currently laying in bed with eyes opem intermittently watching tv. When asked if he has pain, he answers No . No facial grimacing or moaning at this time. Appears comfortable
[2023-07-19 19:27] VITALS: BP 140/63; PULSE 63; RESP 18; TEMP 36.6; O2SAT 97
[2023-07-19] MEDS: Parenteral Nutrition 1,920 ML 80 ML IV (22:06)
--- NOTE | 2023-07-20 00:29 | PC.RT ---
PT refusing CPAP tonight; states he needs to talk to his
[2023-07-20] MEDS: Ampicillin Sodium 500 MG in 0.9 % Sodium Chloride 50 ML 100 MG IV ×4 (02:45→20:48)
[2023-07-20 02:47] VITALS: BP 140/65; PULSE 66; RESP 16; TEMP 36.6; O2SAT 98
[2023-07-20] MEDS: Morphine Sulfate 2 MG/ML CARTRIDGE IVPUSH (04:38)
[2023-07-20 07:08] LABS: Anion Gap 12 (12-20); Blood Urea Nitrogen 19 mg/dL (9-16); Calcium 9.1 mg/dL (8.4-10.2); Carbon Dioxide 30 mmol/L (22-29); Chloride 102 mmol/L (96-108); Creatinine Clr Calc Pharmacy 79.6; Estimated Glomerular Filt Rate > 60; Glucose Random 118 mg/dL (60-115); Magnesium 1.9 mg/dL (1.6-2.6); Phosphorus 3.2 mg/dL (2.7-4.5); Potassium 4.1 mmol/L (3.3-5.1); Sodium 140 mmol/L (135-145); Triglycerides 189 mg/dL (<150)
[2023-07-20] MEDS: 0.9 % Sodium Chloride Flush 3 ML SYRINGE IVFLUSH ×3 (07:38→20:48)
[2023-07-20 08:00] VITALS: BP 130/77; PULSE 74; RESP 17; TEMP 36; O2SAT 98
--- NOTE | 2023-07-20 09:53 | P.PNIM_ITS ---
Subjective Subjective Date of Service: 07/20/23 Interval History: Seen and evaluated this morning More alert and interactive overall weak and frail LP showed elevated PRotein, pending cultures restless overnight Review of Systems Review of Systems: Yes all other systems are reviewed and are negative Physical Exam 2 Vital Signs: Vital Signs: Last Vital Signs Temp 96.8 F 07/20/23 08:00 Pulse 74 07/20/23 08:00 Resp 17 07/20/23 08:00 BP 130/77 07/20/23 08:00 Pulse Ox 98 07/20/23 08:00 O2 Del Method Nasal Cannula 07/20/23 08:00 O2 Flow Rate 3.0 07/20/23 08:00 BMI result Body Mass Index 25.7 Const: Other: Constitutional : alert and interactive , not in distress Neck : Normal inspection, Supple Cardiovascular : RRR, no JVP, no lower extremity edema Respiratory : good bilateral air entry, no crackles, wheezes Gastrointestinal: soft, lax, Normal bowel sounds, Non tender Skin : Warm, Dry Neurological : Alert and oriented to self and place, moving all extremities Objective Data Active Medications Acetaminophen (Acetaminophen 325 Mg Tablet) 650 mg PO Q6H PRN PRN Reason: Pain, Mild (Pain Scale 1-3) Al Hydroxide/Mg Hydroxide (Magnesium Hydrox/Alum Hydrox 30 Ml Oral.Susp) 30 ml PO Q6H PRN PRN Reason: Heartburn/Nausea Atorvastatin Calcium (Atorvastatin Calcium 10 Mg Tablet) 10 mg PO BEDTIME [facility] Last Admin: 07/19/23 22:07 Dose: Not Given Documented By: LORI Non-Admin Reason: not able to swallow Enoxaparin Sodium (Enoxaparin Sodium 40 Mg/0.4 Ml Syringe) 40 mg SUBCUT Q24H [facility] Last Admin: 07/19/23 17:28 Dose: 40 mg Documented By: BLAS Glycerin (Glycerin Adult Supp.Rect) 1 supp [place] DAILY [facility] Last Admin: 07/19/23 10:48 Dose: 1 supp Documented By: BLAS Ampicillin Sodium 500 mg/ (Sodium Chloride) 50 mls @ 100 mls/hr IV Q6H [facility] Last Infusion: 07/20/23 08:15 Dose: Infused Documented By: ADY Nutrition (Parenteral) (Parenteral Nutrition) 1,920 mls @ 80 mls/hr IV .Q24H [facility]; Protocol Stop: 07/20/23 20:59 Last Admin: 07/19/23 22:06 Dose: 80 mls/hr Documented By: LORI Nutrition (Parenteral) (Parenteral Nutrition) 1,920 mls @ 80 mls/hr IV .Q24H [facility]; Protocol Stop: 07/21/23 08:44 Levothyroxine Sodium (Levothyroxine Sodium 75 Mcg Tablet) 75 mcg PO DAILY@0600 [facility] Last Admin: 07/20/23 06:13 Dose: Not Given Documented By: HERMILA Non-Admin Reason: sleepy, ?safe swallow Lorazepam (Lorazepam 2 Mg/Ml Vial) 2 mg IVPUSH ONCE PRN PRN Reason: Pre-LP Last Admin: 07/17/23 09:28 Dose: 2 mg Documented By: CORNELIA Lorazepam (Lorazepam 2 Mg/Ml Vial) 1 mg IVPUSH ONCE PRN PRN Reason: anxiety/restlessness Lorazepam (Lorazepam 2 Mg/Ml Vial) 0.5 mg IVPUSH Q6H PRN PRN Reason: anxiety/restlessness Magnesium Hydroxide (Milk Of Magnesia 30 Ml Oral.Susp) 30 ml PO DAILY PRN PRN Reason: Constipation Morphine Sulfate (Morphine Sulfate 2 Mg/Ml Cartridge) 2 mg IVPUSH Q2H PRN; Protocol PRN Reason: Pain, Severe (Pain Scale 7-10) Last Admin: 07/20/23 04:38 Dose: 2 mg Documented By: HERMILA Nicotine Polacrilex (Nicotine Polacrilex 2 Mg Gum) 4 mg BUCCAL Q2H PRN PRN Reason: Nicotine Cravings Ondansetron HCl (Ondansetron Hcl 4 Mg/2 Ml Vial) 4 mg IVPUSH Q8H PRN PRN Reason: Nausea and Vomiting Pharmacy Consult (Consult Rx Parenteral Nutrition Ordering) 1 each MISCELLANE DAILY PRN PRN Reason: Consult order Sertraline HCl (Sertraline Hcl 100 Mg Tablet) 100 mg PO DAILY [facility] Last Admin: 07/20/23 07:42 Dose: Not Given Documented By: ADY Non-Admin Reason: pt condition Sodium Chloride (0.9 % Sodium Chloride Flush 3 Ml Syringe) 3 ml IVFLUSH QSHIFT [facility] Last Admin: 07/20/23 07:38 Dose: 3 ml Documented By: HO.WHEELEM Trazodone HCl (Trazodone Hcl 25 Mg Halftab) 25 mg PO BEDTIME MRX1 PRN PRN Reason: Insomnia Labs 07/17/23 05:15 07/20/23 05:43 Labs: Laboratory Results - last 24 hr 07/20/23 05:43 Anion Gap 12 Estim Creat Clear Calc 79.6 Estimated GFR > 60 Random Glucose 118 H Calcium 9.1 Phosphorus 3.2 Magnesium 1.9 Albumin 3.0 L Triglycerides 189 H Microbiology Microbiology Results: Microbiology 07/17/23 10:30 Gram Stain - Final Cerebrospinal Fluid CSF Examination - Final Fluid Description - Final CSF Culture - Preliminary No growth after 2 days 07/17/23 Unknown Urine Culture - Final Urine Catheterized - Straight Catheter Enterococcus faecalis Assessment and Plan (1) UTI (urinary tract infection): Status: Acute (2) Hypophosphatemia: Status: Acute (3) Hypomagnesemia: Status: Acute (4) Acute hypokalemia: Status: Acute (5) Toxic metabolic encephalopathy: Status: Acute Plan A 77 years old male with PMH of Depression, ROYAL on CPAP, Dementia among others who was admitted to psych floor for memory decline and agitation. Toxic metabolic encephalopathy Likely a result of viral encephalitis on top of advanced dementia given elevated Protein in LP and URine infection Improving Neuro input appreciated, could be aseptic meningitis. Negative encephalitis panel. Negative EEG for seizures Pending LP cultures, The plan was to discharge home Thursday on hospice but now HCP might consider different approach FTT in elderly Continue PPN, advance diet monitor I\O Encourage PO intake UTI Cx growing Entercoccus change Abx to Ampicillin Electrolytes imbalance replace Mg, K, P follow BMP Depression, major psychiatry to follow HLD Atorvastatin Hypothyroid Levothyroxine DVT PPx Lovenox ACP: Discussed goals of care with his and HCP Gloria who wantet hospice care Prior to clinical improvement. will hold on that now as the patient improving clinically The patient will need overnight hospital stay for treatment of UTI and clinical improvement Quality Stroke Does the patient have a stroke diagnosis?: No VTE Prior VTE?: No VTE Risk Level:: Medical - moderate - high VTE Device Contraindication: Treatment Not Indicated VTE Drug Contraindication: N/A - Med Ordered
[2023-07-20] MEDS: Glycerin Adult SUPP.RECT 1 SUPP PR (10:12)
--- NOTE | 2023-07-20 10:45 | MHC.CLN ---
F/U CONTINUES WITH PPN DUE TO VERY POOR INTAKE. DIET=REGULAR MECH SOFT/GRD DIET-APPROPRIATE MAGIC CUP TID TO INCREASE KCALS. REVIEWED LABS. AZNXT=[id number]. COMMUNICATED WITH PHARMACY. RECOMMEND CONTINUE PPN AT MAX GOAL: PPN AT 80ML/HR WITH 92G LIPIDS TO PROVIDE 1898 TOTAL KCALS (28KCALS/KG), 192G DEXTROSE, 82G PROTEIN (1.2G/KG) REPLETE LYTES NEEDED. CONTINUE TO MONITOR PO INTAKE AND NUTRITIONAL NEEDS.
[2023-07-20 14:53] VITALS: BP 108/53; PULSE 71; RESP 18; TEMP 36.2; O2SAT 99
[2023-07-20] MEDS: Enoxaparin Sodium 40 MG/0.4 ML SYRINGE SUBCUT (17:05)
[2023-07-20 19:04] VITALS: BP 158/79; PULSE 85; RESP 18; TEMP 36; O2SAT 3
[2023-07-20] MEDS: Atorvastatin Calcium 10 MG TABLET PO (20:48)
[2023-07-20] MEDS: Parenteral Nutrition 1,920 ML 80 ML IV (21:25)
[2023-07-20] MEDS: LORazepam 2 MG/ML VIAL 0.5 MG IVPUSH (23:07)
[2023-07-20 23:56] VITALS: BP 128/61; PULSE 67; RESP 18; TEMP 36.4; O2SAT 99
[2023-07-21 00:47] VITALS: PULSE 65; RESP 18; O2SAT 96
[2023-07-21] MEDS: Ampicillin Sodium 500 MG in 0.9 % Sodium Chloride 50 ML 100 MG IV ×2 (02:58→09:23)
[2023-07-21] MEDS: Levothyroxine Sodium 75 MCG TABLET PO (06:35)
[2023-07-21 06:52] LABS: Albumin Level 3.2 g/dL (3.5-5.0); Anion Gap 13 (12-20); Blood Urea Nitrogen 15 mg/dL (9-16); Calcium 9.4 mg/dL (8.4-10.2); Carbon Dioxide 28 mmol/L (22-29); Chloride 101 mmol/L (96-108); Creatinine Clr Calc Pharmacy 80.9; Estimated Glomerular Filt Rate > 60; Glucose Random 113 mg/dL (60-115); Magnesium 1.8 mg/dL (1.6-2.6); Phosphorus 3.8 mg/dL (2.7-4.5); Potassium 4.3 mmol/L (3.3-5.1); Sodium 138 mmol/L (135-145); Triglycerides 173 mg/dL (<150)
[2023-07-21 08:00] VITALS: BP 144/95; PULSE 76; RESP 18; TEMP 36; O2SAT 97
[2023-07-21 09:18] VITALS: BP 144/95; PULSE 76; O2SAT 97
[2023-07-21] MEDS: 0.9 % Sodium Chloride Flush 3 ML SYRINGE IVFLUSH (09:23)
[2023-07-21] MEDS: Sertraline HCL 100 MG TABLET PO (09:23)
--- NOTE | 2023-07-21 10:41 | P.PNIM_ITS ---
Subjective Subjective Date of Service: 07/21/23 Interval History: Seen and evaluated this morning alert and interactive but little confused overall weak and frail no reported events Review of Systems Review of Systems: Yes all other systems are reviewed and are negative Physical Exam 2 Vital Signs: Vital Signs: Last Vital Signs Temp 96.8 F 07/21/23 08:00 Pulse 76 07/21/23 09:18 Resp 18 07/21/23 08:00 BP 144/95 H 07/21/23 09:18 Pulse Ox 97 07/21/23 09:18 O2 Del Method Room Air 07/21/23 08:00 O2 Flow Rate 3 07/20/23 23:56 BMI result Body Mass Index 25.7 Const: Other: Constitutional : alert and interactive , not in distress Neck : Normal inspection, Supple Cardiovascular : RRR, no JVP, no lower extremity edema Respiratory : good bilateral air entry, no crackles, wheezes Gastrointestinal: soft, lax, Normal bowel sounds, Non tender Skin : Warm, Dry Neurological : Alert and oriented to self and place, moving all extremities , mildly confused about year and person Objective Data Active Medications Acetaminophen (Acetaminophen 325 Mg Tablet) 650 mg PO Q6H PRN PRN Reason: Pain, Mild (Pain Scale 1-3) Al Hydroxide/Mg Hydroxide (Magnesium Hydrox/Alum Hydrox 30 Ml Oral.Susp) 30 ml PO Q6H PRN PRN Reason: Heartburn/Nausea Atorvastatin Calcium (Atorvastatin Calcium 10 Mg Tablet) 10 mg PO BEDTIME [facility] Last Admin: 07/20/23 20:48 Dose: 10 mg Documented By: GIGI Enoxaparin Sodium (Enoxaparin Sodium 40 Mg/0.4 Ml Syringe) 40 mg SUBCUT Q24H [facility] Last Admin: 07/20/23 17:05 Dose: 40 mg Documented By: ADY Glycerin (Glycerin Adult Supp.Rect) 1 supp [place] DAILY [facility] Last Admin: 07/20/23 10:12 Dose: 1 supp Documented By: ADY Comments: given upon delivery of medication from pharmacy. Ampicillin Sodium 500 mg/ (Sodium Chloride) 50 mls @ 100 mls/hr IV Q6H [facility] Last Infusion: 07/21/23 10:06 Dose: Infused Documented By: TORI Nutrition (Parenteral) (Parenteral Nutrition) 1,920 mls @ 80 mls/hr IV .Q24H [facility]; Protocol Stop: 07/21/23 20:59 Last Admin: 07/20/23 21:25 Dose: 80 mls/hr Documented By: GIGI Levothyroxine Sodium (Levothyroxine Sodium 75 Mcg Tablet) 75 mcg PO DAILY@0600 [facility] Last Admin: 07/21/23 06:35 Dose: 75 mcg Documented By: GIGI Lorazepam (Lorazepam 2 Mg/Ml Vial) 2 mg IVPUSH ONCE PRN PRN Reason: Pre-LP Last Admin: 07/17/23 09:28 Dose: 2 mg Documented By: CORNELIA Lorazepam (Lorazepam 2 Mg/Ml Vial) 1 mg IVPUSH ONCE PRN PRN Reason: anxiety/restlessness Lorazepam (Lorazepam 2 Mg/Ml Vial) 0.5 mg IVPUSH Q6H PRN PRN Reason: anxiety/restlessness Last Admin: 07/20/23 23:07 Dose: 0.5 mg Documented By: GIGI Magnesium Hydroxide (Milk Of Magnesia 30 Ml Oral.Susp) 30 ml PO DAILY PRN PRN Reason: Constipation Morphine Sulfate (Morphine Sulfate 2 Mg/Ml Cartridge) 2 mg IVPUSH Q2H PRN; Protocol PRN Reason: Pain, Severe (Pain Scale 7-10) Last Admin: 07/20/23 04:38 Dose: 2 mg Documented By: HERMILA Nicotine Polacrilex (Nicotine Polacrilex 2 Mg Gum) 4 mg BUCCAL Q2H PRN PRN Reason: Nicotine Cravings Ondansetron HCl (Ondansetron Hcl 4 Mg/2 Ml Vial) 4 mg IVPUSH Q8H PRN PRN Reason: Nausea and Vomiting Pharmacy Consult (Consult Rx Parenteral Nutrition Ordering) 1 each MISCELLANE DAILY PRN PRN Reason: Consult order Sertraline HCl (Sertraline Hcl 100 Mg Tablet) 100 mg PO DAILY [facility] Last Admin: 07/21/23 09:23 Dose: 100 mg Documented By: TORI Sodium Chloride (0.9 % Sodium Chloride Flush 3 Ml Syringe) [facility] Last Admin: 07/21/23 09:23 Dose: 3 ml Documented By: TORI Trazodone HCl (Trazodone Hcl 25 Mg Halftab) 25 mg PO BEDTIME MRX1 PRN PRN Reason: Insomnia Labs 07/17/23 05:15 07/21/23 06:05 Labs: Laboratory Results - last 24 hr 07/21/23 06:05 Hold Purple Top SEE NOTE Anion Gap 13 Estim Creat Clear Calc 80.9 Estimated GFR > 60 Random Glucose 113 Calcium 9.4 Phosphorus 3.8 Magnesium 1.8 Albumin 3.2 L Triglycerides 173 H Microbiology Microbiology Results: Microbiology 07/17/23 10:30 Gram Stain - Final Cerebrospinal Fluid CSF Examination - Final Fluid Description - Final CSF Culture - Final No growth after 3 days. Assessment and Plan Plan A 77 years old male with PMH of Depression, ROYAL on CPAP, Dementia among others who was admitted to psych floor for memory decline and agitation. He deteriorated to obtunded status and neurology recommended medical work up. He had LP, CXR and UA. Found to have UTI with CSF findings suggestive of aseptic meningitis Toxic metabolic encephalopathy Likely a result of Enterococcus UTI and viral aseptic meningitis on top of advanced dementia given elevated Protein in LP Improving Neuro input appreciated, could be aseptic meningitis. Negative encephalitis panel. Negative EEG for seizures, Negative CSF cultures Hospice plan cancelled, to do PT and look for placement FTT in elderly Started to tolerate more diet now Continue PPN today then dc monitor I\O Encourage PO intake Physical deconditioning UTI Cx growing Entercoccus change Abx to Ampicillin on 07/19 Electrolytes imbalance replaced Mg, K, P follow BMP Depression, major psychiatry to follow HLD Atorvastatin Hypothyroid Levothyroxine DVT PPx Lovenox The patient will need overnight hospital stay for treatment of UTI and clinical improvement pending safe discharge plan Quality Stroke Does the patient have a stroke diagnosis?: No VTE Prior VTE?: No VTE Risk Level:: Medical - moderate - high VTE Device Contraindication: Treatment Not Indicated VTE Drug Contraindication: N/A - Med Ordered
--- NOTE | 2023-07-21 11:40 | MHC.CLN ---
F/U CONTINUES WITH PPN DUE TO VERY POOR INTAKE PO 50% AND 75% X 2 MEALS DIET RX:REGULAR MECH SOFT/GRD DIET-APPROPRIATE MAGIC CUP TID TO INCREASE KCALS PER MD PPN TO CONTINUE TODAY THEN D/C TOMORROW REVIEWED LABS; NOTED [id number] SLIGHT IMPROVEMENT DISCUSSED WITH PHARMACY CONTINUE PPN AT MAX GOAL OF 80ML/HR WITH 92G LIPIDS PROVIDES 1898 TOTAL KCALS (28KCALS/KG), 192G DEXTROSE, 82G PROTEIN (1.2G/KG) REPLETE LYTES NEEDED CONTINUE TO MONITOR PO INTAKE
--- NOTE | 2023-07-21 15:03 | MHC.CM.PN ---
pt to be dcd to [facility] today at 5
--- NOTE | 2023-07-21 15:20 | PM.DS ---
DS: Providers Provider Date of Service: 07/21/23 Date of admission: 07/16/23 13:18 Primary care physician: Nishant Corral MD Consults: 07/17/23 07:47 Consult to Psychiatry Routine Consulting Provider: Psych Covering Reason for consultation: agitation, refusing care DS: Diagnosis Discharge Diagnosis (1) UTI (urinary tract infection): Status: Acute (2) Hypophosphatemia: Status: Acute (3) Hypomagnesemia: Status: Acute (4) Acute hypokalemia: Status: Acute (5) Toxic metabolic encephalopathy: Status: Acute DS: Summary Hospital Course Hospital Course: The patient has prolonged hospital stay, for full details please return to EMR. Admission note HPI A 77 years old male with PMH of Depression, ROYAL on CPAP, Dementia among others who was admitted to psych floor for memory decline and agitation. The patient has been worsening physically and mentally since thanksgiving per his . he is becoming more confused and sleepy with decrease oral intake and more lethargy. He was unable to provide any Hx so i spoke with his and psychiatrist who filled me with info. as for the last week he was monitored in the psych unit with no success in improving his mental status. evaluated by neurologist who is concern over a possible medical cause for his confusion. He tested positive for RSV recently but not requiring O2 supplement. CXR and UA negative. Admitted for further work up. Hospital course # Toxic metabolic encephalopathy He was admitted to the psychiatry unit for thoughts of major depression but he continued to deteriorate physically and mentally. he did not improve and was evaluated by neurology who recommended further medical work up. blood work, CXR, UA and LP were done. results were showing that his encephalopathy likely a result of Enterococcus UTI and viral aseptic meningitis on top of advanced dementia given elevated Protein in LP. His mentation improved back to baseline while on antibiotics. Negative encephalitis panel. Negative EEG for seizures, Negative CSF cultures. # FTT in elderly secondary to altered mentation and ongoing infecitons. strated on PPN for feeding with good tolerance. tolerates more diet after encephalopathy resolved. # UTI Cx growing Entercoccus. Treated inpatient with Ampicillin on 07/19. To finish 7 more days of Augmentin as outpatient. # Electrolytes imbalance replaced Mg, K, P with good response. # Depression, major psychiatry saw the patient after The patient will likely need less than 30 days of SNF stay. Plan Continue Antibiotics as prescribed Increase physical activity as tolerated Time Attestation Discharge coordination time: Greater than 30 minutes Quality: Safe Use of Opioids Does Pt have an Active Cancer Diagnosis on the Problem List?: No Quality: Stroke Does the patient have a stroke diagnosis?: No Physical Exam Vital Signs: Vital Signs: Last Vital Signs Temp 96.8 F 07/21/23 08:00 Pulse 76 07/21/23 09:18 Resp 18 07/21/23 08:00 BP 144/95 H 07/21/23 09:18 Pulse Ox 97 07/21/23 09:18 O2 Del Method Room Air 07/21/23 08:00 O2 Flow Rate 3 07/20/23 23:56 BMI result Body Mass Index 25.7 Const: Other: Constitutional : alert and interactive , not in distress Neck : Normal inspection, Supple Cardiovascular : RRR, no JVP, no lower extremity edema Respiratory : good bilateral air entry, no crackles, wheezes Gastrointestinal: soft, lax, Normal bowel sounds, Non tender Skin : Warm, Dry Neurological : Alert and oriented to self and place, moving all extremities DS: Data Data Completed and Pending Completed studies during hospitalization [Text1]: Procedures Other Electroconvulsive Therapy (01/01/22) Labs on day of discharge: Laboratory Results - last 24 hr 07/21/23 06:05 Hold Purple Top SEE NOTE Sodium 138 Potassium 4.3 Chloride 101 Carbon Dioxide 28 Anion Gap 13 BUN 15 Creatinine 0.64 Estim Creat Clear Calc 80.9 Estimated GFR > 60 Random Glucose 113 Calcium 9.4 Phosphorus 3.8 Magnesium 1.8 Albumin 3.2 L Triglycerides 173 H Imaging Chest x-ray: Radiologist's impression: ITS Impressions Abdomen X-Ray 07/16/23 14:02 IMPRESSION: 1. Unremarkable chest exam. 2. Moderate constipation. No acute process seen in the abdomen. Chest X-Ray 07/16/23 14:02 IMPRESSION: 1. Unremarkable chest exam. 2. Moderate constipation. No acute process seen in the abdomen. Lumbar Puncture Fluoroscopy 07/17/23 11:30 IMPRESSION: Successful lumbar puncture with collection of 7 mL of clear appearing CSF. No immediate complication. Pelvis Ultrasound 07/17/23 13:06 FINDINGS/IMPRESSION: In the area of clinical concern a large hypoechoic peripherally calcified mass is noted with posterior acoustic shadowing, in the deep subcutaneous tissue, approximately measuring 3.5 x 2.8 x 2.4 cm. No internal vascularity is noted. Somewhat superior and lateral to the above-described mass focal area of heterogeneous echotexture is noted in the deep subcutaneous tissue with associated calcification measuring 0.8 x 0.4 x 0.6 cm. No internal vascularity is seen. Etiology of above described findings is unclear. There are no pertinent prior studies available for comparison. Discharge Plan Discharge Anticipated Discharge Date/Time: 07/21/23 15:11 Patient Disposition: Home Health Service Discharge Diagnosis: Altered mentation Urine infection Electrolytes imbalance Referrals: [facility] [Other] - 1 Week Nishant Corral MD [Primary Care Provider] - 1 Week Discharge Medications: New amoxicillin 500 mg Capsule 500 mg PO Q8H Qty: 21 0RF Continued acetaminophen 325 mg Tablet 650 mg PO Q6H PRN (Reason: Headache/Pain Mild Scale (1-3)) 30 Days Qty: 30 0RF atorvastatin 10 mg Tablet 10 mg PO BEDTIME 30 Days Qty: 30 0RF nicotine (polacrilex) 2 mg Gum 4 mg buccal Q2H PRN (Reason: Nicotine Cravings) 30 Days Qty: 30 0RF sertraline 100 mg Tablet 100 mg PO DAILY 30 Days Qty: 30 0RF levothyroxine 75 mcg tablet 75 mcg PO DAILY@0600 Discontinued enoxaparin 40 mg/0.4 mL Syringe 40 mg subcut Q24H 30 Days Qty: 12 0RF Discharge Orders: Discharge Order (Routine); Ordered 07/21/23 Ordered By: Sourav Ross Diet: Advance to usual diet Activity on Discharge: As tolerated Stand Alone Forms: Patient Portal Discharge page Care Plan Goals: Read below Health Concerns: Read below Plan of Treatment: Read below Assessment: You were admitted for evaluation of altered mentation. lumbar puncture was done showing evidence of likely viral meningitis. Urine showed infection with Enterococcus bacteria responded well to Antibiotics. Continue Amoxicillin as prescribed Increase physical activity as tolerated
[2023-07-21 15:23] VITALS: BP 128/66; PULSE 92; RESP 18; TEMP 36.1; O2SAT 97
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
[2023-07-21] MEDS: Amoxicillin 500 MG CAPSULE PO (16:04)
== END 2023-07-21 17:14 | disposition home health service (06) | DRG 97 ==
PROVIDERS: Admitting Provider Student in an Organized Health Care Education/Training Program; PCP Internal Medicine; Visit Provider Student in an Organized Health Care Education/Training Program
DX: G03.0 Nonpyogenic meningitis (principal); G92.8 Other toxic encephalopathy; F33.3 Major depressive disorder, recurrent, severe with psychotic symptoms; F03.911 Unspecified dementia, unspecified severity, with agitation; N39.0 Urinary tract infection, site not specified; F05 Delirium due to known physiological condition; E03.9 Hypothyroidism, unspecified; B95.2 Enterococcus as the cause of diseases classified elsewhere; E78.5 Hyperlipidemia, unspecified; B97.89 Other viral agents as the cause of diseases classified elsewhere; E87.6 Hypokalemia; E83.39 Other disorders of phosphorus metabolism; R62.7 Adult failure to thrive; Z68.25 Body mass index [BMI] 25.0-25.9, adult; G47.33 Obstructive sleep apnea (adult) (pediatric); Z62.810 Personal history of physical and sexual abuse in childhood; Z87.891 Personal history of nicotine dependence; Z79.890 Hormone replacement therapy; Z79.899 Other long term (current) drug therapy
CPT/HCPCS: 36415; 36600; 62328; 71045; 74018; 76857; 80048; 81001; 82040; 82565; 82803; 82945; 83735; 84100; 84157; 84166; 84478; 85025; 85610; 87015; 87070; 87086; 87088; 87186; 87205; 87483; 89051; 94660; 97162; J0290; J0696; J1650; J2060; J2270; J3475; J3480

== ENCOUNTER 2023-07-16 13:18 | Outpatient (BNV) | payer MEDICARE, OTHER, SELFPAY | END 2023-07-17 09:40 | PROVIDERS: Admitting Provider Student in an Organized Health Care Education/Training Program; PCP Internal Medicine; Visit Provider Radiology Diagnostic Radiology | DX: G92.8 Other toxic encephalopathy (principal); R41.82 Altered mental status, unspecified | CPT/HCPCS: 62328 ==

== ENCOUNTER → 2023-07-16 13:18 | Outpatient (BNV) | payer MEDICARE, OTHER, SELFPAY | PROVIDERS: Admitting Provider Student in an Organized Health Care Education/Training Program; PCP Internal Medicine; Visit Provider Psychiatry & Neurology Psychiatry | DX: F33.1 Major depressive disorder, recurrent, moderate (principal); N39.0 Urinary tract infection, site not specified; G92.8 Other toxic encephalopathy | CPT/HCPCS: 99232 ==

== ENCOUNTER → 2023-07-16 13:18 | Outpatient (BNV) | payer MEDICARE, OTHER, SELFPAY | PROVIDERS: Admitting Provider Student in an Organized Health Care Education/Training Program; PCP Internal Medicine; Visit Provider Student in an Organized Health Care Education/Training Program | DX: N39.0 Urinary tract infection, site not specified (principal); E83.39 Other disorders of phosphorus metabolism; E83.42 Hypomagnesemia; E87.6 Hypokalemia; G92.8 Other toxic encephalopathy | CPT/HCPCS: 99223; 99232; 99233; 99239 ==

== ENCOUNTER 2023-10-28 13:57 | Outpatient (AMB) | payer MEDICARE, OTHER, SELFPAY ==
--- NOTE | 2023-10-28 14:00 | A.OFFVIS_ITS ---
Vital Signs 10/28/23 14:16 Height 6 ft Weight 148 lb 4 oz BMI 20.1 BP 100/62 Blood Pressure Location Rt brachial Position Sitting Pulse 72 Pulse Source Pulse Oximeter Pulse Oximetry (%) 97 Oxygen Delivery Method Room Air Intake Visit Reasons: 6 mnts f/u appt cognitive impairment - Conf Intake Note: Patient presents for 6 months F/U. In and out of hospital and did rehab so wasn't able to use the machine. Allergies bee venom protein (honey bee) Allergy (Severe, Verified 10/28/23 14:09) Swelling HPI Comments Details: 78 y/o male patient presents with his for follow up of cognitive decline and ROYAL. Pt's reports that patient was admitted to hospital for confusion and weakness. He tested positive for RSV and UTI. He also had LP done and result showing that his encephalopathy likely a result of Enterococcus UTI and viral aseptic meningitis. Negative EEG for seizures, Negative CSF cultures. He finished antibiotic course and discharged to rehab. Pt's reports that patient did not use CPAP at rehab. He was very confused and no one put him a CPAP. Pt's baseline sleep study result was significant for severe degree of sleep apnea. The AHI was 58/hr and oxygen eleuterio was 83%. Pt was doing well with APAP. [facility] Medical History Depression Hypothyroidism Prostate cancer Depression HLD (hyperlipidemia) HTN (hypertension) Surgical History H/O prostatectomy History of hernia surgery Family History Other Prostate cancer Social History Household Members: Unknown / Unable to assess Housing: Unknown / Unable to assess Do you presently have visiting nurse or other home services: No Unable to assess alcohol history related to: Unknown Alcohol intake: never Comment: 1:1S Patient Tobacco Use Status: Former Tobacco user Tobacco use type: Cigarette Cigarette Packs Per Day: 1 Cigarettes Per Day: 20.0 e-Cigarette/Vaping Use: Never Used Second Hand Smoke Exposure: No Advance Directives Date on File: 01/29/22 service: No Sexual orientation: Straight/Heterosexual Review of Systems Const All systems reviewed & are unremarkable except as noted in HPI and below Physical Exam Vital Signs: Last Vital Signs Pulse 72 10/28/23 14:16 BP 100/62 10/28/23 14:16 Pulse Ox 97 10/28/23 14:16 Oxygen Delivery Method Room Air 10/28/23 14:16 BMI result Body Mass Index 20.1 Const General: cooperative Orientation/consciousness: patient oriented x3 HEENT Head: Yes normocephalic Neck Neck: Yes full ROM and Yes supple Resp Effort & Inspection: normal respiratory effort and able to speak in complete sentences Neuro Other: Right hand mild resting tremor. General: patient oriented x3, moves all extremities and other (left hands mild resting tremor) Cranial nerves: Yes Bilaterally intact EOM present, Yes Midline tongue present, Yes Ability to bilaterally rotate head present and Yes Other cranial nerve findings present (decreased hearing. decreased facial expression.) Cognition (Neuro): normal cognition Psych Appearance: grossly normal Assessment & Plan Assessment & Plan (1) Cognitive impairment: Code(s): R41.89 - Other symptoms and signs involving cognitive functions and awareness Category: Medical (2) Fatigue: Code(s): R53.83 - Other fatigue Category: Medical (3) ROYAL (obstructive sleep apnea): Comment: Severe degree of sleep apnea. The AHI was 58/hr and oxygen eleuterio was 83%. Code(s): G47.33 - Obstructive sleep apnea (adult) (pediatric) Category: Medical Plan Advised patient to resume APAP at [id number]. Stressed compliance, use CPAP nightly and more than 4 hours. Continue to engage more cognitive and physical activity. Will consider namenda in the future. Coding Level of Care Code Est Pt Level 3 (13846) Diagnoses Cognitive impairment R41.89 Fatigue R53.83 ROYAL (obstructive sleep apnea) G47.33
[2023-10-28 14:16] VITALS: BP 100/62; PULSE 72; O2SAT 97; BMI 20.1
== END 2023-10-28 14:55 | disposition home or self-care (01) ==
PROVIDERS: PCP Internal Medicine; Visit Provider Nurse Practitioner Family
DX: R41.89 Other symptoms and signs involving cognitive functions and awareness (principal); R53.83 Other fatigue; G47.33 Obstructive sleep apnea (adult) (pediatric)
CPT/HCPCS: 99213

== ENCOUNTER → 2023-10-28 13:57 | Outpatient (BNVA) | payer MEDICARE, OTHER, SELFPAY | PROVIDERS: PCP Internal Medicine; Visit Provider Nurse Practitioner Family | DX: R41.89 Other symptoms and signs involving cognitive functions and awareness (principal); R53.83 Other fatigue; G47.33 Obstructive sleep apnea (adult) (pediatric) | CPT/HCPCS: 99212 ==